=== PATIENT | male | born 1955 | race Caucasian/White ===

== ENCOUNTER 2023-07-07 09:23 | Outpatient (AMB) | payer OTHER, SELFPAY ==
--- NOTE | 2023-07-07 09:27 | MHC.OFFVIS ---
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 Patient states that couple months ago he had some heartburn type sensation and at that time he went to [place] ER. Then diagnosed with atrial flutter. He is currently on beta-blockers and anticoagulation. Has not had any symptoms like palpitations. Otherwise, no exertional angina or shortness of breath or in fact any other complaints. No previous history of coronary disease or myocardial infarction or cardiomyopathy. History of drinking regularly till about a month ago but then stopped completely. [facility] Medical History Steatosis of liver Major depressive disorder DJD (degenerative joint disease) Cataract Impaired fasting glucose ADHD Hypertension Family History (Updated 07/07/23 @ 09:48 by John Feng MD) Father No problems noted. Mother No problems noted. Social History (Updated 07/07/23 @ 09:49 by John Feng MD) Alcohol intake: current Comment: daily Patient Tobacco Use Status: Former Tobacco user Review of Systems Const Denies weakness ENT Denies dizziness Card Denies chest pain, Denies chest pain with activity, Denies syncope, Denies rapid heart rate, Denies pedal edema, Denies edema, Denies leg edema, Denies lightheadedness, Denies palpitations, Denies dyspnea, Denies dyspnea on exertion and Denies orthopnea Resp Denies cough, Denies dyspnea and Denies dyspnea on exertion GI Denies hematochezia and Denies change in stool character Musc Denies abnormal gait, Denies muscle cramps, Denies muscle weakness, Denies numbness, Denies radiating pain into limb and Denies tingling Neuro Denies abnormal gait, Denies dizziness, Denies syncope, Denies numbness, Denies tingling and Denies weakness Endo Denies palpitations Physical Exam Vital Signs: Last Vital Signs Pulse 53 07/07/23 09:29 BP 110/80 07/07/23 09:29 Pulse Ox 99 07/07/23 09:29 Oxygen Delivery Method Room Air 07/07/23 09:29 BMI result Body Mass Index 29.4 Const General: comfortable and no acute distress Orientation/consciousness: patient oriented x3 HEENT Other: Unremarkable Head: Yes normal to inspection Neck Neck: Yes normal visual inspection Chest Chest palpation & inspection: normal inspection of the chest Resp Auscultation: clear to auscultation bilaterally Cardio Palpation: normal PMI Heart sounds: S1 normal heart sound present, S2 normal heart sound present, no gallops, no murmurs and no rubs GI Palpation (GI): Soft to palpation Back/Spine/Pelvis Other: unremarkable Skin General skin exam: no rashes or lesions noted Neuro General: patient oriented x3 Extrem General: Yes normal to inspection Psych Mental Status: mental status grossly normal Office Procedures EKG Details: EKG with atrial flutter at 53/Min. 26269-[id number], Complete Assessment & Plan Assessment & Plan (1) Atrial flutter by electrocardiogram: Code(s): I48.92 - Unspecified atrial flutter Category: Medical Plan Recently diagnosed atrial flutter of uncertain duration. Clinically, no overt symptoms. Etiology could be daily alcohol use. Will performed comprehensive workup with echocardiogram, stress test as well as Holter. Rate well controlled beta-blockers and may continue. Already on anticoagulation. We will get ER records from [place]. Plan discussed and he agrees. Orders: Orders CA echo transthoracic complete Today I48.92 - Unspecified atrial flutter CA lexiscan stress w keith Today I20.9 - Angina pectoris, unspecified, I48.92 - Unspecified atrial flutter NM cardiolite stress test Today I48.92 - Unspecified atrial flutter, R07.2 - Precordial pain ECG 3 day holter monitor Today I48.92 - Unspecified atrial flutter, R00.2 - Palpitations Coding Level of Care Code New Pt Level 4 (20558) Diagnoses Atrial flutter by electrocardiogram I48.92 CPT Codes EKG - CPT: 92004-[id number], Complete ([id number])
[2023-07-07 09:29] VITALS: BP 110/80; PULSE 53; O2SAT 99; BMI 29.4
== END 2023-07-07 10:06 | disposition home or self-care (01) ==
PROVIDERS: PCP Internal Medicine; Visit Provider Internal Medicine
DX: I48.92 Unspecified atrial flutter (principal)
CPT/HCPCS: 93010; 99204

== ENCOUNTER → 2023-07-07 09:23 | Outpatient (BNVA) | payer OTHER, SELFPAY | PROVIDERS: PCP Internal Medicine; Visit Provider Internal Medicine | DX: I48.92 Unspecified atrial flutter (principal) | CPT/HCPCS: 93005; 99202 ==

== ENCOUNTER → 2023-07-29 12:54 | Outpatient (REF) | payer OTHER, SELFPAY ==
--- NOTE | 2023-07-29 12:58 | HM_ITS ---
Conclusion: 1. Patient was monitored for total period of 2 days and 17 hours 2. Baseline was atrial fibrillation with average heart rate of 67 beats per minute with good rate control 3. No significant pauses noted 4. No patient reported events MTDD
--- NOTE | 2023-07-29 12:58 | CA_ITS ---
Transthoracic Echocardiogram Patient (Last, First, Middle): Nathan Murphy, Gender: Male Date of : 1955 Age: 67 Procedure Date: 07/29/2023 Procedure Type: Transthoracic Echocardiogram Location: OP Height: 187.96 cm Weight: 97.52 kg BSA: 2.24 m2 Heart Rate: bpm BP: 106 / 71 mmHg Elementary Assistant Teacher: JOVANNY Referring MD: John Feng MD Symptoms: I48.92 - Unspecified atrial flutter Study Quality: Fair ECG Rhythm: Atrial flutter Conclusions: - The left ventricular systolic function is normal. The calculated ejection fraction is 64% by biplane method. - Moderate biatrial enlargement. - No obvious valvular pathology seen on this study. Findings Left Ventricle Normal left ventricular cavity size. There is mildly increased left ventricular wall thickness. The left ventricular systolic function is normal. The calculated ejection fraction is 64% by biplane method. There is no evidence of regional wall motion abnormalities. Diastolic function is indeterminate on the basis of available data. Right Ventricle Mildly increased right ventricular cavity size. There is low normal right ventricular systolic function. Atria Moderate biatrial enlargement. Aortic Valve There is a normal trileaflet aortic valve. There is mild calcification of the aortic valve. There is no aortic valve stenosis. There is no aortic valve regurgitation. Mitral Valve The mitral valve appears normal. There is no mitral valve regurgitation. There is no mitral valve stenosis. Pulmonic Valve The pulmonic valve is likely normal. Tricuspid Valve There is trace tricuspid valve regurgitation. There is no evidence of pulmonary hypertension. Great Vessels The asc aorta and aortic arch are normal in size. Small plaque is seen in the sino tubular ridge. Venous The inferior vena cava is mildly dilated and collapses greater than 50% with inspiration. Pericardium/Pleural There is no evidence of pericardial effusion. Prior Study Comparison No prior study available for comparison. Recommendations, Care & Conclusions No obvious valvular pathology seen on this study. Measurements 2D Linear Measurements IVSd: 1.24 0.6-0.9/0.6-1.0 cm LVIDd: 4.70 3.9-5.3/4.2-5.9 cm LVIDd Index: 2.10 2.4-3.2/2.2-3.1 cm/m2 LVIDs: 2.61 2.0-3.6 cm LVPWd: 1.14 0.7-1.1 cm LA Diam: 4.20 2.7-3.8/3.0-4.0 cm LAIDs Index: 1.88 1.5-2.3 cm/m2 LV Mass: 261.11 67-162/88-224 g LV Mass Index: 116.57 43-95/49-115 g/m2 LVOT Diam: 2.40 3.0+(-)1.3 cm 2D Systolic Function EF 4C: 66.30 >55% EF 2C: 60.50 >55% EF BiP: 64.30 >55% Mitral Valve MV Pk E: 0.79 MV Decel Time: 166.00 E'Lateral: 12.10 E'Medial: 10.10 E/E' Med: 7.80 E/E' Lat: 6.50 PHT: 49.00 MVA PHT: 4.49 Decel [place]: 4.79 Aortic Valve AoV Pk Rod: 1.30 AoV Mn Rod: 0.87 AoV VTI: 0.32 AoV Pk Grad: 7.00 Aov Mn Grad: 4.00 [place] Cont.VTI: 3.53 LVOT LVOT Pk Rod: 1.06 LVOT Mn Rod: 0.70 LVOT VTI: 0.25 LVOT Pk Grad: 4.00 LVOT Mn Grad: 2.00 LVOT Diam: 2.40 LVOT Area: 4.52 Diastolic Function MV Pk E: 0.79 E'Medial: 10.10 E/E' Med: 7.80 E' Laterial: 12.10 E/E' Lat: 6.50 Right Ventricle TAPSE (mm): 17.80 TVS' Rod: 11.50 Tricuspid Valve TR Pk Rod: 2.05 TR Pk Grad: 17.00 RA Press: 8.00 RVSP: 25.00 Great Vessels Aorta Sinus of Valsalva: 4.18 2.0-3.[address] [place]: 2.96 1.7-3.4 cm Ao Asc: 3.80 2.1-3.4 cm Ao Arch: 3.60 Updated in Other Vendor System with Status of Final John Feng MD electronically signed on 07/31/2023 10:36:19 AM with status of Final
== END ==
LOC: HO.CARD 12:54
PROVIDERS: Visit Provider Internal Medicine
DX: R00.2 Palpitations (principal); I48.92 Unspecified atrial flutter
CPT/HCPCS: 93242; 93306

== ENCOUNTER → 2023-07-29 12:58 | Outpatient (BNV) | payer OTHER, SELFPAY | PROVIDERS: Visit Provider Internal Medicine | DX: I48.91 Unspecified atrial fibrillation (principal) | CPT/HCPCS: 93244; 93306 ==

== ENCOUNTER → 2023-08-24 07:53 | Outpatient (REF) | payer OTHER, SELFPAY ==
--- NOTE | ~2023-08-24 | NM_ITS ---
Lexiscan Myocardial perfusion study Indication: Atrial flutter, assess for coronary disease and ischemia Technique: The patient was brought in for a Lexiscan perfusion study on 08/24/2023 and was injected 0.4 mg of Lexiscan intravenously. Within a minute of this injection 35 mCi of sestamibi was given intravenously. Images were obtained using the SPECT gamma camera interlaced with the gating device. Images were obtained in supine position. Resting perfusion study was performed on 08/25/2023. Patient was administered 35 mCi of sestamibi intravenously at rest. Images were then obtained in supine position. Images were processed with the software and compared side to side in short axis, horizontal long axis and vertical long axis views. Total DLP 97mGy-cm. Findings: Raw acquisition reviewed. The stress perfusion study showed diminished tracer uptake along the inferior wall, more so towards the base. There is improvement with CT attenuation correction is a distal of diaphragmatic attenuation artifact. The gated study shows normal LV systolic function with calculated LVEF of 62%. LV cavity is normal in size. The gated study shows inferior hypokinesis. Resting study shows diminished tracer uptake along the inferior wall. There is improved uptake with CT attenuation correction suggestive of diaphragmatic attenuation artifact. Gating at rest reveals inferior hypokinesis with an ejection fraction of 53%. The findings are consistent with fixed inferior perfusion defect possibly from diaphragmatic attenuation artifact. No clear reversible defects. NM/NM cardiolite stress test Impression: 1. Myocardial perfusion imaging study shows fixed inferior perfusion defect suspected to be from diaphragmatic attenuation artifact. No clear evidence of any ischemia. 2. Gated LVEF is 62% during stress and 53% during rest. 3. Transient ischemic dilatation not present. EKG component of the test reported separately.
--- NOTE | 2023-08-24 07:55 | CA_ITS ---
Acquisition Time: 2023-08-24 08:00:31 Total Exercise Time: 00:02:00 Test Indications: Chest Pain AFLUTTER Medications: AMLODIPINE ELIQUIS BUPROPION LISINOPRIL METOPROLOL Protocol: LEXISCAN Max HR: 080 BPM 52% of Pred: 153 BPM Max BP: 128/076 mmHG Max Work Load: 1.0 METS Pharmacological stress test with Lexiscan injection while sitting and kicking his legs slowly due to bradycardia, without anginal symptoms, without arrhythmias, with normotensive response to injection, with nondoagnoisitc EKGs. Aminophylline 75mg IVP given to reverse Lexiscan. Nuclear images pending. Test reviewed with Dr. Plunkett Referred By: John Feng Overread By: Gisselle Slaughter
== END ==
LOC: HO.CARD 07:53
PROVIDERS: Visit Provider Internal Medicine
DX: R07.2 Precordial pain (principal); I20.9 Angina pectoris, unspecified; I48.92 Unspecified atrial flutter
CPT/HCPCS: 78452; 93017; A9500; J0280; J2785

== ENCOUNTER → 2023-08-24 07:55 | Outpatient (BNV) | payer OTHER, SELFPAY | PROVIDERS: Visit Provider Nurse Practitioner | DX: I48.92 Unspecified atrial flutter (principal) | CPT/HCPCS: 78452; 93016; 93018 ==

== ENCOUNTER 2023-09-07 13:28 | Outpatient (AMB) | payer OTHER, SELFPAY ==
--- NOTE | 2023-09-07 13:39 | A.OFFVIS_ITS ---
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 Recently seen in consultation regarding atrial flutter. Patient states that couple months ago he had some heartburn type sen sation and at that time he went to [facility] [place] [facility]. Then diagnosed with atrial flutter. He is currently on beta-blockers and anticoagulation. Has not had any symptoms like palpitations. Otherwise, no exertional angina or shortness of breath or in fact any other complaints. No previous history of coronary disease or myocardial infarction or cardiomyopathy. History of drinking regularly till a few months ago but stopped now. [facility] Medical History Steatosis of liver Major depressive disorder DJD (degenerative joint disease) Cataract Impaired fasting glucose ADHD Hypertension Family History Father No problems noted. Mother No problems noted. Social History Alcohol intake: current Comment: daily Patient Tobacco Use Status: Former Tobacco user Review of Systems Const Denies chills, Denies fatigue, Denies fever(s), Denies weight gain and Denies weight loss Card Denies chest pain, Denies leg edema, Denies lightheadedness, Denies palpitations, Denies dyspnea on exertion and Denies orthopnea Resp Denies cough and Denies dyspnea on exertion GI Denies hematochezia and Denies change in stool character Musc Denies muscle weakness and Denies radiating pain into limb Endo Denies fatigue and Denies palpitations Physical Exam Vital Signs: Last Vital Signs Pulse 51 09/07/23 13:40 BP 118/72 09/07/23 13:40 BMI result Body Mass Index 27.7 Const General: comfortable and no acute distress Orientation/consciousness: patient oriented x3 HEENT Other: Unremarkable Head: Yes normal to inspection Neck Neck: Yes normal visual inspection Chest Chest palpation & inspection: normal inspection of the chest Resp Auscultation: clear to auscultation bilaterally Cardio Palpation: normal PMI Heart sounds: S1 normal heart sound present, S2 normal heart sound present, no gallops, no murmurs and no rubs GI Palpation (GI): Soft to palpation Back/Spine/Pelvis Other: unremarkable Skin General skin exam: no rashes or lesions noted Neuro General: patient oriented x3 Extrem General: Yes normal to inspection Psych Mental Status: mental status grossly normal Office Procedures EKG Details: EKG with atrial flutter at 66/Min. [id number], Complete Assessment & Plan Assessment & Plan (1) Atrial flutter by electrocardiogram: Code(s): I48.92 - Unspecified atrial flutter Category: Medical Plan Recently diagnosed atrial flutter of uncertain duration. Clinically, no overt symptoms. Etiology could be daily alcohol use. Echocardiogram with LVEF of 64%. No wall motion abnormalities. Moderate biatrial enlargement. Otherwise unremarkable. Myocardial perfusion imaging study shows fixed inferior defect thought to be from diaphragmatic attenuation artifact. Holter with underlying atrial flutter with an average rate of 67/Min. Discussed about atrial flutter. Discussed about cardioversion and he is agreeable. We can schedule this in the near future. In the interim, continue beta-blockers/Eliquis. Post cardioversion, possibly flecainide or Multaq. Then refer for flutter ablation. Coding Level of Care Code Est Pt Level 4 (50969) Diagnoses Atrial flutter by electrocardiogram I48.92 CPT Codes EKG - CPT: 37277-[id number], Complete ([id number])
[2023-09-07 13:40] VITALS: BP 118/72; PULSE 51; BMI 27.7
== END 2023-09-07 14:18 | disposition home or self-care (01) ==
PROVIDERS: PCP Internal Medicine; Referring Provider Internal Medicine; Visit Provider Internal Medicine
DX: I48.92 Unspecified atrial flutter (principal)
CPT/HCPCS: 93010; 99214

== ENCOUNTER → 2023-09-07 13:28 | Outpatient (BNVA) | payer OTHER, SELFPAY | PROVIDERS: PCP Internal Medicine; Visit Provider Internal Medicine | DX: I48.92 Unspecified atrial flutter (principal); Z79.01 Long term (current) use of anticoagulants | CPT/HCPCS: 93005; 99212 ==

== ENCOUNTER 2023-10-06 14:45 | Emergency (ER) | payer OTHER, SELFPAY ==
[2023-10-06] VITALS (8 sets, daily range): BP systolic 135–159; BP diastolic 83–100; PULSE 21–63; RESP 16–25; TEMP 36.6–36.9; O2SAT 93–98; BMI 27.6
--- NOTE | ~2023-10-06 | XR_ITS ---
EXAMINATION: XR CHEST CLINICAL INFORMATION: Chest pain COMPARISON: None available. TECHNIQUE: Frontal view of the chest was obtained. FINDINGS: Lungs grossly clear given portable technique. Heart size normal normal with normal caliber pulmonary vessels. No congestive change. XR/XR chest 1V IMPRESSION: No active disease given the limitations of portable AP technique.
--- NOTE | 2023-10-06 14:47 | ECG_ITS ---
Test Reason : chest pain Blood Pressure : / mmHG Vent. Rate : 062 BPM Atrial Rate : 248 BPM P-R Int : 000 ms QRS Dur : 098 ms QT Int : 428 ms P-R-T Axes : 078 -11 035 degrees QTc Int : 434 ms Atrial flutter with variable A-V block Inferior infarct , age undetermined Abnormal ECG No previous ECGs available Referred By: Jalyn Murphy Electronically Signed By:JEFE SAMUELS MD
--- NOTE | 2023-10-06 14:53 | ED.ARRPALP ---
HPI - Arrhythmia/Palpitations General Chief Complaint: Chest Pain Stated Complaint: CP Time Seen by Provider: 10/06/23 15:45 Source: patient Mode of arrival: ambulatory Limitations: no limitations History of Present Illness ED Provider: Dr. Grzegorz Ferreira HPI narrative: 68-year-old male past medical history of atrial fibrillation scheduled to have an ablation in December here who presents emergency department complaining chest pain. 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 Related Data Home Medications ?Medication ?Instructions ?Recorded ?Confirmed amlodipine 5 mg tablet 5 mg PO DAILY 07/07/23 09/07/23 apixaban 5 mg tablet (Eliquis) 5 mg PO BID 07/07/23 09/07/23 bupropion HCl 200 mg tablet,12 hr PO 07/07/23 09/07/23 sustained-release (Wellbutrin SR) lisinopril 10 mg tablet 10 mg PO DAILY 07/07/23 09/07/23 metoprolol succinate 50 mg 50 mg PO DAILY 07/07/23 09/07/23 tablet,extended release 24 hr Allergies Allergy/AdvReac Type Severity Reaction Status Date / Time No Known Allergies Allergy Verified 10/06/23 14:55 Review of Systems Review of Systems: Review of systems: General: Patient denies any fever chills recent illness or falls Musculoskeletal: Denies back pain or body aches or other injuries HEENT: denies headache, runny nose, ear pain Respiratory: denies shortness of breath, cough Cardiovascular: no chest pain or palpitations : denies dysuria, frequency Abdomen: no nausea vomiting denies abdominal pain Extremities: no swelling, no pain Skin: no diaphoresis Yes all other systems are reviewed and are negative [facility] Past Medical History Medical History Steatosis of liver Major depressive disorder DJD (degenerative joint disease) Cataract Impaired fasting glucose ADHD Hypertension Family History Family History Father No problems noted. Mother No problems noted. Social History Social History Alcohol intake: current Comment: daily Patient Tobacco Use Status: Former Tobacco user Smoked in Last 30 Days: No Use of substances other than those prescribed or required for medical reasons: Yes Substance Use Type: Marijuana Substance Use Frequency: Daily Advance Directives: Yes Advance Directives Information Provided: No Advance Directives on File: No Do you have a plan to hurt others: No Plan Physical Exam Vital Signs: Vital Signs: Last Vital Signs Temp 98.5 F 10/06/23 17:34 Pulse 21 L 10/06/23 17:34 Resp 25 H 10/06/23 17:34 BP 157/96 H 10/06/23 17:34 Pulse Ox 94 10/06/23 17:34 O2 Del Method Room Air 10/06/23 17:00 BMI result Body Mass Index 27.6 General: Well-appearing well-nourished in no signs of distress HEENT: Normocephalic atraumatic Neck: No signs of JVD, no masses no tenderness or lymphadenopathy Cardiovascular: Regular rate and rhythm Respiratory: Clear to auscultation bilaterally Abdomen: Soft nontender no masses Extremities: Normal pedal pulses no signs of edema Skin: Dry warm no rashes Back: No tenderness full ROM Course Course Course Narrative: This is a Rapid Medical Exam performed in triage by Jalyn Murphy PA-C. Full HPI, ROS and PE to be performed by primary ED provider. 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 +SOB from Metoprolol per patient. denies CP at present. PE: ambulating w/steady gait, nontoxic appearing Plan: EKG, Labs, CXR Reevaluation(s) Reevaluation #1: 1931 repeat troponin is also negative the patient has no more chest pain I feel comfortable discharging police home with close PCP follow-up. Medical Decision Making Medical Decision Making [facility] Narrative: Patient is pain-free at this time I will check labs x-ray and reassess Differential Diagnosis Differential Diagnoses: The differential diagnosis associated with the presentation includes Chest pain ACS atrial fibrillation atrial flutter dehydration electrolyte abnormality pneumonia less likely esophageal rupture or aortic dissection Admission/Observation Consideration of admission/observation: Escalation of care including admission/observation considered Lab Data [facility] Lab Attestation statement: I reviewed the patient's lab results. 10/06/23 15:53 10/06/23 15:53 Labs: Lab Results 10/06/23 10/06/23 Range/Units 15:53 18:27 WBC 6.0 (4.8-10.8) X10*3/uL RBC 4.90 (4.60-5.80) X10*6/uL Hgb 14.1 (14.0-18.0) g/dl Hct 40.9 L (42.0-52.0) % MCV 83.5 (80.0-98.0) fL MCH 28.8 (27.0-33.0) pg MCHC 34.5 (31.0-36.0) g/dl RDW 12.9 (11.0-16.0) % Plt Count 276 (160-400) X10*3/uL MPV 9.5 (9.4-12.4) fL Immature Gran % (Auto) 0.5 H (0.0-0.4) % Neut % (Auto) 59.9 (45-73) % Lymph % (Auto) 27.3 (20-40) % [place] % (Auto) 10.6 (2-11) % Eos % (Auto) 1.0 (0-4) % Baso % (Auto) 0.7 (0-2) % Lymph # (Auto) 1.6 (1.2-4.9) X10*3/uL [place] # (Auto) 0.6 (0.1-1.2) X10*3/uL Eos # (Auto) 0.1 (0.0-0.4) X10*3/uL Baso # (Auto) 0.0 (0.0-0.2) X10*3/uL Abs Immat Gran (auto) 0.03 (0.00-0.03) X10*3/uL Absolute Neuts (auto) 3.6 (2.0-8.3) x10*3/uL Absolute Nucleated RBC 0.000 (0.0-0.012) X10*3/uL Nucleated RBC % (auto) 0.0 (0.0-0.2) /100WBC PT 14.5 H (11.1-13.3) SEC INR 1.2 H (0.9-1.1) Sodium 139 (135-145) mmol/L Potassium 3.9 (3.3-5.1) mmol/L Chloride 105 (96-108) mmol/L Carbon Dioxide 27 (22-29) mmol/L Anion Gap 11 L (12-20) BUN 14 (9-16) mg/dL Creatinine 0.80 (0.5-1.4) mg/dL Estim Creat Clear Calc 102.7 Estimated GFR > 60 Random Glucose 99 (60-115) mg/dL Calcium 9.4 (8.4-10.2) mg/dL Magnesium 2.0 (1.6-2.6) mg/dL Total Bilirubin 0.4 (0.0-1.0) mg/dL Direct Bilirubin 0.1 (0.0-0.5) mg/dL AST 16 (5-37) U/L ALT 18 (0-40) U/L Alkaline Phosphatase 73 (39-117) U/L Troponin I High Sens < 2.7 < 2.7 (<3.5-35.0) ng/L B-Natriuretic Peptide 127 H (<100) pg/mL Total Protein 7.4 (6.5-8.0) g/dL Albumin 4.4 (3.5-5.0) g/dL Independent Interpretation I performed an independent interpretation of an: EKG, Rhythm Strip and Plain X-Ray Interpretation: Rate 62 atrial flutter with no signs of ischemia normal intervals no change from previous interpreted by me External Record Review External record reviewed: Inpatient record, Office record and Outpatient record Discharge Plan Discharge Clinical Impression: Chest pain Patient Disposition: Home, Self-Care Instructions: Chest Pain (DC) Additional Instructions: You were seen today in the emergency department for chest pain. You had x-ray and labs done which were all unremarkable. Please call follow up with your doctor if you have any other concerns worsening pain please do not hesitate to come back to the emergency department. Prescriptions: No Action metoprolol succinate 50 mg tablet extended release 24 hr 50 mg PO DAILY Eliquis 5 mg tablet 5 mg PO BID amlodipine 5 mg tablet 5 mg PO DAILY lisinopril 10 mg tablet 10 mg PO DAILY bupropion HCl [Wellbutrin SR] 200 mg tablet sustained-release 12 hr PO Print Language: Wolof
--- NOTE | 2023-10-06 15:40 | PC.NURSE ---
Pt. is on manager monitoring at this time.
--- NOTE | 2023-10-06 15:54 | PC.NURSE ---
Labs collected and sent as ordered.
--- NOTE | 2023-10-06 15:54 | PC.NURSE ---
20G to LAC. Tolerated well.
[2023-10-06 16:06] LABS: MANUAL DIFF FLAG NO
--- NOTE | 2023-10-06 16:13 | MHC.EDTECH ---
This tech went to introduce herself, checked vital signs, call meadows within reach.
[2023-10-06 16:14] LABS: Basophils Percent Auto 0.7 % (0-2); Eosinophils Absolute Auto 0.1 X10*3/uL (0.0-0.4); Hematocrit 40.9 % (42.0-52.0); Hemoglobin 14.1 g/dl (14.0-18.0); Imm Gran Abs Auto 0.03 X10*3/uL (0.00-0.03); Imm Gran Pct Auto 0.5 % (0.0-0.4); Lymphocytes Absolute Auto 1.6 X10*3/uL (1.2-4.9); Lymphocytes Percent Auto 27.3 % (20-40); Mean Corpuscular HGB Conc 34.5 g/dl (31.0-36.0); Mean Corpuscular Hemoglobin 28.8 pg (27.0-33.0); Mean Corpuscular Volume 83.5 fL (80.0-98.0); Mean Platelet Volume 9.5 fL (9.4-12.4); Monocytes Absolute Auto 0.6 X10*3/uL (0.1-1.2); Monocytes Percent Auto 10.6 % (2-11); Neutrophils Absolute Auto 3.6 x10*3/uL (2.0-8.3); Neutrophils Percent Auto 59.9 % (45-73); Platelet Count 276 X10*3/uL (160-400); Red Cell Distribution Width 12.9 % (11.0-16.0)
[2023-10-06 16:17] LABS: INTERNATIONAL NORM RATIO 1.2 (0.9-1.1); Prothrombin Time 14.5 SEC (11.1-13.3)
[2023-10-06 16:24] LABS: Alanine Aminotransferase 18 U/L (0-40); Albumin Level 4.4 g/dL (3.5-5.0); Alkaline Phosphatase 73 U/L (39-117); Anion Gap 11 (12-20); Aspartate Amino Transferase 16 U/L (5-37); Bilirubin Direct 0.1 mg/dL (0.0-0.5); Bilirubin Total 0.4 mg/dL (0.0-1.0); Blood Urea Nitrogen 14 mg/dL (9-16); Calcium 9.4 mg/dL (8.4-10.2); Carbon Dioxide 27 mmol/L (22-29); Chloride 105 mmol/L (96-108); Creatinine Clr Calc Pharmacy 102.7; Estimated Glomerular Filt Rate > 60; Glucose Random 99 mg/dL (60-115); Potassium 3.9 mmol/L (3.3-5.1); Sodium 139 mmol/L (135-145); Total Protein 7.4 g/dL (6.5-8.0)
[2023-10-06 16:29] LABS: B Type Natriuretic Peptide 127 pg/mL (<100)
[2023-10-06 16:36] LABS: Troponin-I High Sensitivity < 2.7 ng/L (<3.5-35.0)
[2023-10-06 18:55] LABS: Troponin-I High Sensitivity < 2.7 ng/L (<3.5-35.0)
== END 2023-10-06 20:04 | disposition home or self-care (01) ==
PROVIDERS: Physician Assistant; Emergency Provider Student in an Organized Health Care Education/Training Program; PCP Internal Medicine
DX: R07.89 Other chest pain (principal); I48.91 Unspecified atrial fibrillation; R06.02 Shortness of breath; Z79.899 Other long term (current) drug therapy
CPT/HCPCS: 36415; 71045; 80048; 80076; 83735; 83880; 84484; 85025; 85610; 93005; 99283; 99285

== ENCOUNTER → 2023-10-06 14:47 | Outpatient (BNV) | payer OTHER, SELFPAY | PROVIDERS: Emergency Provider Student in an Organized Health Care Education/Training Program; PCP Internal Medicine; Visit Provider Internal Medicine Cardiovascular Disease | DX: I48.92 Unspecified atrial flutter (principal); I44.30 Unspecified atrioventricular block | CPT/HCPCS: 93010 ==

== ENCOUNTER 2024-03-22 13:21 | Outpatient (AMB) | payer OTHER, SELFPAY ==
[2024-03-22 13:28] VITALS: BP 138/68; PULSE 61; BMI 28.6
--- NOTE | 2024-03-22 13:28 | MHC.OFFVIS ---
Vital Signs 03/22/24 13:28 Height 6 ft 2 in Weight 222 lb 10.67 oz BMI 28.6 BP 138/68 Blood Pressure Location Lt brachial Position Sitting Pulse 61 Pulse Source Monitor Intake Visit Reasons: 4 week follow up post ablation Allergies No Known Allergies Allergy (Verified 10/06/23 14:55) Medication List - Last Reconciled 03/22/24 by John Feng MD amlodipine 5 mg PO DAILY apixaban (Eliquis) 5 mg PO BID bupropion HCl SR (Wellbutrin SR) PO lisinopril 20 mg PO DAILY HPI Comments Details: Nathan returns for follow-up. Recently seen in consultation regarding atrial flutter. Few months back, he had some heartburn type sensation and at that time he went to [facility]. Then diagnosed with atrial flutter. He was put on beta-blockers and anticoagulation. Subsequently, seen EP and underwent flutter ablation last month. Overall, he states he feels good. No cardiac symptoms. No angina. History of alcohol use regularly till a few months ago. [facility] Medical History Steatosis of liver Major depressive disorder DJD (degenerative joint disease) Cataract Impaired fasting glucose ADHD Hypertension Family History Father No problems noted. Mother No problems noted. Social History Alcohol intake: current Comment: daily Patient Tobacco Use Status: Former Tobacco user Substance Use Type: Marijuana Review of Systems Const Denies weakness ENT Denies dizziness Card Denies chest pain, Denies chest pain with activity, Denies syncope, Denies rapid heart rate, Denies pedal edema, Denies edema, Denies leg edema, Denies lightheadedness, Denies palpitations, Denies dyspnea, Denies dyspnea on exertion and Denies orthopnea Resp Denies cough, Denies dyspnea and Denies dyspnea on exertion GI Denies hematochezia and Denies change in stool character Musc Denies abnormal gait, Denies muscle cramps, Denies muscle weakness, Denies numbness, Denies radiating pain into limb and Denies tingling Neuro Denies abnormal gait, Denies dizziness, Denies syncope, Denies numbness, Denies tingling and Denies weakness Endo Denies palpitations Physical Exam Vital Signs: Last Vital Signs Pulse 61 03/22/24 13:28 BP 138/68 03/22/24 13:28 BMI result Body Mass Index 28.6 Const General: comfortable and no acute distress Orientation/consciousness: patient oriented x3 HEENT Other: Unremarkable Head: Yes normal to inspection Neck Neck: Yes normal visual inspection Chest Chest palpation & inspection: normal inspection of the chest Resp Auscultation: clear to auscultation bilaterally Cardio Palpation: normal PMI Heart sounds: S1 normal heart sound present, S2 normal heart sound present, no gallops, no murmurs and no rubs GI Palpation (GI): Soft to palpation Back/Spine/Pelvis Other: unremarkable Skin General skin exam: no rashes or lesions noted Neuro General: patient oriented x3 Extrem General: Yes normal to inspection Psych Mental Status: mental status grossly normal Office Procedures EKG Details: EKG with underlying sinus rhythm at 61/Min; NE prolongation to 234 milliseconds; [place]. [address]-[id number], Complete Assessment & Plan Assessment & Plan (1) Atrial flutter by electrocardiogram: Code(s): I48.92 - Unspecified atrial flutter Category: Medical Plan Essentially, atrial flutter, status post ablation and currently maintaining sinus rhythm. It seems that beta-blockers have been stopped. We will keep him on anticoagulation for the time being. Recheck Holter in about 3 months time. If no recurrent rhythm issues, then possibly stop Eliquis?; we will check with the EP. Testing- Echocardiogram with LVEF of 64%. No wall motion abnormalities. Moderate biatrial enlargement. Otherwise unremarkable. Myocardial perfusion imaging study shows fixed inferior defect thought to be from diaphragmatic attenuation artifact. Orders: Orders ECG 3 day holter monitor 3 Months I48.92 - Unspecified atrial flutter Coding Level of Care Code Est Pt Level 3 (17872) Diagnoses Atrial flutter by electrocardiogram I48.92 CPT Codes EKG - CPT: 63894-[id number], Complete ([id number])
== END 2024-03-22 13:57 | disposition home or self-care (01) ==
PROVIDERS: PCP Nurse Practitioner Gerontology; Visit Provider Internal Medicine
DX: I48.92 Unspecified atrial flutter (principal)
CPT/HCPCS: 93010; 99213

== ENCOUNTER → 2024-03-22 13:21 | Outpatient (BNVA) | payer OTHER, SELFPAY | PROVIDERS: PCP Internal Medicine; Visit Provider Internal Medicine | DX: I48.92 Unspecified atrial flutter (principal) | CPT/HCPCS: 93005; 99212 ==

== ENCOUNTER → 2024-06-06 14:50 | Outpatient (REF) | payer OTHER, SELFPAY ==
--- OUTSIDE RECORDS SUMMARY | 2024-06-06 17:56 | XMS_ITS ---
Author Name [facility] [place] [facility] [place] [facility] [place] [facility] [place] Address [address] [place] [id number] Care Team Providers Care Baker Bench Name Role Phone ARIANNE CHERY Primary Care Provider Unavailab le Insurance Providers: All historical and current Section Date Range: From patient's date of to the date document was created. This section includes the names of all active insurance providers for the patient. Insurance Provider Type of Coverage Plan Name Start of Policy Coverage End of Policy Coverage Group Number Member ID Insurance Provider's Telephone Number Policy Rizvi's Name Patient's Relationship to Policy Rizvi [facility] [employer] Aug 29, 2017 [id number] [phone] Kathy ESTRADA [facility] CE ORGANIZ COMMO [facility] Mar 01, 2014 [id number] [phone] Kathy ESTRADA SPOUSE MEDICARE (WNR) MEDICARE (M) PART A Sep 29, 2020 PART A [id number] [facility] [phone] Guanakito ESTRADA PATIENT MEDICARE (WNR) MEDICARE (M) PART A Sep 29, 2020 PART A [id number] [facility] [phone] Guanakito ESTRADA PATIENT Selected Encounter This section includes the information on record at [place] for the Encounter. Date/Time Encounter Type Encounter Description Reason Provider Source Sep 17, 2023 03:30 PM OFFICE O/P EST MOD 30 MIN [facility] - IND ICD-10-CM F90.0 Attn-defct hyperactivity disorder, predom inattentive type [place] BROOKE IN [facility] Encounter Template Text not used by [place] Assessments - Encounter Diagnoses This section includes the primary and secondary diagnoses documented for the Encounter. Date/Time Primary/Secondary Diagnosis Diagnosis Name Provider Source Sep 17, 2023 04:08 PM PRIMARY Attn-defct hyperactivity disorder, predom inattentive type [facility] [place] [facility] Sep 17, 2023 04:08 PM SECONDARY Alcohol dependence with withdrawal, uncomplicated GERMAIN BROOKE IN [facility] [place] [facility] Sep 17, 2023 04:08 PM SECONDARY Major depressive disorder, single episode, unspecified [facility] Plan of Treatment: Future Appointments (+ 6 months) and Future Tests (+/- 45 days) The Plan of Treatment section includes future care activities for the patient [facility] [place] [facility] This section includes future appointments and future orders which are active, pending or scheduled. Future Appointments This section includes appointments that were scheduled to occur 6 months from the date of the Encounter, up to a maximum of 20 appointments. The data comes from all [place] treatment facilities. Appointment Date/Time Appointment Type Appointme nt Facility Name Oct 05, 2023 01:00 PM AMBULATORY - MEDICINE [place] [facility] [facility] Oct 14, 2023 02:00 PM AMBULATORY - NONE [place] [facility] [facility] Nov 12, 2023 03:30 PM AMBULATORY - PSYCHIATRY [place] [facility] [facility] Nov 25, 2023 07:30 AM AMBULATORY - REHAB MEDICIN [place] [facility] [place] [facility] Nov 25, 2023 08:30 AM AMBULATORY - PSYCHIATRY [place] [facility] [place] [facility] Nov 25, 2023 11:00 AM AMBULATORY - MEDICINE [facility] Dec 03, 2023 07:30 AM AMBULATORY - REHAB MEDICIN E [place] [facility] [facility] Dec 09, 2023 08:15 AM AMBULATORY - REHAB MEDICIN E [facility] [place] [facility] Dec 15, 2023 01:00 PM AMBULATORY - REHAB MEDICIN E [facility] [place] [facility] Dec 24, 2023 03:00 PM AMBULATORY - PSYCHIATRY [facility] [place] [facility] Dec 31, 2023 02:30 PM AMBULATORY - REHAB MEDICIN E [facility] [place] [facility] Jan 17, 2024 08:30 AM AMBULATORY - MEDICINE [place] [facility] [facility] Jan 17, 2024 09:45 AM AMBULATORY - MEDICINE [place] [facility] [place] [facility] Feb 17, 2024 03:30 PM [facility] [place] [facility] Active, Pending, and Scheduled Orders This section includes a listing of several types of active, pending, and scheduled orders, including clinic medications orders, diagnostic test orders, procedure orders and consult orders; where the start date of the order is 45 days before the date of the Encounter or 45 days after the date of theEncounter. The data comes from all [place] treatment facilities. Test Date/Time Test Type Test Details Facility Name Aug 10, 2023 12:00 AM Laboratory - Chemi stry Order VITAMIN D (25-OH) BLOOD (SST-SERUM) [facility] Aug 10, 2023 12:00 AM Laboratory - Chemi stry Order MICROALBUMIN CREATININE RATIO PANEL URINE (RANDOM) [facility] Aug 10, 2023 12:00 AM Laboratory - Chemi stry Order BASIC METABOLIC PANEL (fasting) BLOOD (SST-SERUM) [facility] Aug 10, 2023 12:00 AM Laboratory - Chemi stry Order LIVER FUNCTION BLOOD (SST-SERUM) [facility] Aug 10, 2023 12:00 AM Laboratory - Chemi stry Order LIPID PANEL FASTING BLOOD (SST-SERUM) [facility] Aug 10, 2023 12:00 AM Laboratory - Chemi stry Order CBC AND DIFF (AUTO) BLOOD (LAV-BLOOD) [facility] Aug 10, 2023 12:00 AM Laboratory - Chemi stry Order HEMOGLOBIN A1C PANEL BLOOD (LAV-BLOOD) [facility] Aug 10, 2023 12:00 AM Laboratory - Chemi stry Order TSH BLOOD (SST-SERUM) [facility] Lab Results: +/- 30 days of the encounter This section includes the Chemistry and Hematology Lab Results on record with [place] for the patient. Radiology Reports and Pathology Reports are provided separately, in subsequent sections. Lab Results This section contains the Chemistry/Hematology Results that were resulted 30 days before or 30 daysafter the date of the Encounter. Date/Time Source Result Type Result - Unit Interpretation Reference Range Comment Sep 09, 2023 07:34 AM [facility] LIPID PANEL FASTING Specimen Type: SERUM No comment entered. Ordering Provider: VALERIE GARCIA Report Released Date/Time: Oct 06, 2022 01:18 PM Reporting Lab: [address] [address] Performing Lab: [address] [address] CHOLESTEROL 187 mg/dL TRIGLYCERIDE 138 mg/dL 0-150 LDL calculated 121 mg/dL 0-129 CHOL/HDL 4.9 HDL CHOLESTEROL 38 mg/dL L 40-60 Sep 09, 2023 07:34 AM [facility] BASIC METABOLIC PANEL (fasting) Specimen Type: SERUM No comment entered. Ordering Provider: VALERIE GARCIA Report Released Date/Time: Oct 06, 2022 01:18 PM Reporting Lab: [address] [address] Performing Lab: [address] [address] UREA NITROGEN 13 mg/dL 7-25 GLUCOSE 101 mg/dL H 65-100 SODIUM 137 mmol/L 135-145 POTASSIUM 4.6 mmol/L 3.5-5.0 CHLORIDE 105 mmol/L 100-110 CO2 23 meq/L 20-30 CREATININE, Serum 0.86 mg/dL 0.50-1.40 eGFR(CKD-EPI 2020) >90 mL/min >60 Sep 09, 2023 07:34 AM [facility] HEMOGLOBIN A1C PANEL Specimen Type: BLOOD Comment: Values obtained from A1C measurements can vary. For atypical A1C assays, a reported value of 7.0 could actually be between 6.72 and 7.28 if measured by a reference method. A reported value of 9.0 could actually be between 8.73 and 9.27. Ref: http://www.[facility] p.org/CAPdata. asp Ordering Provider: VALERIE GARCIA Report Released Date/Time: Oct 06, 2022 01:18 PM Reporting Lab: [facility] [address] Performing Lab: [facility] [address] HEMOGLOBIN A1C 5.2 4.0-5.6 Sep 09, 2023 07:34 AM [facility] LIVER FUNCTION Specimen Type: SERUM No comment entered. Ordering Provider: VALERIE GARCIA Report Released Date/Time: Oct 06, 2022 01:18 PM Reporting Lab: [facility] [address] [address] Performing Lab: [address] [address] PROTEIN,TOTAL 7.2 g/dL 6.0-8.3 ALBUMIN 4.2 g/dL 3.5-5.0 ALKALINE PHOSPHATASE 70 U/L 40-150 AST 17 U/L 5-34 ALT 19 U/L BILIRUBIN, TOTAL 0.9 mg/dL 0.2-1.2 Sep 09, 2023 07:34 AM [facility] TSH Specimen Type: SERUM No comment entered. Ordering Provider: VALERIE GARCIA Report Released Date/Time: Oct 06, 2022 01:18 PM Reporting Lab: [facility] [address] Performing Lab: [facility] [address] TSH 1.02 u[IU]/mL 0.35-5.00 Sep 09, 2023 07:34 AM [facility] PSA Specimen Type: SERUM No comment entered. Ordering Provider: VALERIE GARCIA Report Released Date/Time: Oct 06, 2022 01:18 PM Reporting Lab: [facility] [address] Performing Lab: [facility] [address] [facility] [address] PSA 1.33 ng/mL 0.00-4.00 Sep 09, 2023 07:34 AM [facility] MICROALBUMIN CREATININE RATIO PANEL Specimen Type: URINE No comment entered. Ordering Provider: VALERIE GARCIA Report Released Date/Time: Oct 06, 2022 01:19 PM Reporting Lab: [facility] [address] [facility] [address] Performing Lab: [facility] [address] [facility] [address] MICROALBUMIN/C REATININE RATIO 11.5 mg/g 0-29.9 MICROALBUMIN,Q UANTITATIVE 1.1 mg/dL RR UNAVAIL CREATININE URINE 95.90 mg/dL Sep 09, 2023 07:34 AM [facility] CBC AND DIFF (AUTO) Specimen Type: BLOOD No comment entered. Ordering Provider: VALERIE GARCIA Report Released Date/Time: Oct 06, 2022 01:18 PM Reporting Lab: [facility] [address] [facility] [address] Performing Lab: [facility] [address] [facility] [address] WBC 5.88 10*3/uL 4.50-11.00 RBC 5.14 10*6/uL 4.23-5.66 HGB 14.6 g/dL 12.8-17 HCT 43.5 39.2-50.4 MCV 84.6 fL 82-99 MCHC 33.6 g/dL 30.8-35.1 PLT 300 10*3/uL 140-360 RDW-CV 12.4 12.0-16.0 MONO, ABS 0.56 10*3/uL 0.30-1.10 MCH 28.4 pg 26.2-32.6 NEUT % 64.5 43.7-75.8 LYMPH % 23.6 14.0-42.3 MONO % 9.5 5.1-13.7 EOS % 1.4 0.4-6.8 BASO % 0.7 0.1-2.0 NEUT, ABS 3.79 10*3/uL 2.20-7.60 LYMPH, ABS 1.39 10*3/uL 1.00-3.20 EOS, ABS 0.08 10*3/uL 0.03-0.44 BASO, ABS 0.04 10*3/uL 0.01-0.13 IMMATURE GRAN % 0.3 0.0-0.7 IMMATURE GRAN, ABS 0.02 10*3/uL 0.00-0.06 NRBC % 0.0 0.0-0.0 NRBC, ABS 0.00 10*3/uL 0.00-0.00 Advance Directives: All historical and current Section Date Range: From patient's date of to the date document was created. This section includes ALL of a patient's completed or amended [place] Advance and Rescinded Directives. The entries below indicate that a directive exists for the patient, but an actual copy is not included with this document. The data comes from all [place] facilities. Date Advance Directives Provider Source Jun 25, 2023 ADVANCE DIRECTIVE DISCUSSION AMAYA FRANZ [facility] Aug 06, 2017 ADVANCE DIRECTIVE ABDIRASHID [facility] Radiology Reports: +/- 30 days of the encounter Radiology Reports For cases when an order for radiology services may have been completed prior to the date of the Encounter, the report list includes the Radiology Reports that were completed up to 30 days before dateof the Encounter. For cases when an order for radiology services may have been completed after the date of the Encounter, the report list also includes the Radiology Reports that were completed up to30 days after date of the Encounter. The data comes from all [place] treatment facilities. Date/Time Radiology Report Provider Source Sep 17, 2023 02:56 PM SPINE CERVICAL, 4 OR 5 VIEWS: EMA ESTRADA [id number] M Exm Date: SEP 17, 2023@14:56 Req Phys: JOSE,LAZARO Pat Loc: C[facility]/SO/PACT 9 (Req'g Loc) Img Loc: [facility]/BUILDING 1 Service: Unknown [facility] , (Case [id number] COMPLETE) SPINE CERVICAL, 4 OR 5 VIEWS (RAD Detailed) CPT:16752 Reason for Study: neck pain Clinical History: Report Status: Verified Date Reported: SEP 17, 2023 Date Verified: SEP 17, 2023 Investor Relations Specialist E-Sig:/ES/MAVERICK SANCHEZ JR Report: Study: AP, lateral and left and right oblique views of the cervical spine. Comparison: None. Findings: There is intervertebral disc space narrowing, vertebral endplate sclerosis and anterior osteophytosis which is mild to moderate in degree and consistent with degenerative disc disease. There is overall straightening of the normal cervical lordosis, likely secondary to patient positioning, pain or the degenerative changes. There is mild left C5-7 level bony neural foraminal stenosis secondary to bony osteophyte formation. The vertebral heights are normal. There is mild facet and uncovertebral joint hypertrophic change. The bony mineralization is normal. No bony fracture, dislocation or subluxation is identified. The skull base appears normal. Impression: Multilevel degenerative changes in the cervical spine, as described above. Primary Diagnostic Code: No immediate attention required Primary Interpreting Staff: MAVERICK SANCHEZ JR, Radiologist (Investor Relations Specialist) /MAVERICK DU JR [facility] Encounter Notes: All associated encounter notes This section contains the clinical notes associated to the Encounter. Date/Time Encounter Note(s) Provider Source Sep 17, 2023 03:39 PM PRIMARY CARE NURSE PRACTITIONER OUTPATIENT NOTE: LOCAL TITLE: NURSE PRACTITIONER OUTPATIENT NOTE STANDARD TITLE: PRIMARY CARE NURSE PRACTITIONER OUTPATIENT NOTE DATE OF NOTE: SEP 17, 2023@15:39 ENTRY DATE: SEP 17, 2023@15:40:10 AUTHOR: LEXI BROOKE COSIGNER: URGENCY: STATUS: COMPLETED OUTPATIENT MENTAL HEALTH CLINIC: FOLLOW-UP HPI: ALVINATimoteoEMA BROOKE, a 67 y/o male previously diagnosed with Major depressive disorder, Attention deficit hyperactivity disorder and Alcohol Use Disorder presents for [facility] Follow-Up appointment. Last seen by This Provider on 08/13/23 Stormed off at work today because he was frustrated with the laboratory secretary and an IT issue that persisted into a second day. These outbursts are not regular occurrences Working 50 plus hours per week ADHD symptoms have been Shitty without the ADHD medication. Agrees that he'd prefer to wait until ablation for arrhythmia before reinitiating an ADHD medication Has been taking a modified version of acamprosate regimen; 33 mg TID. I take one every morning and I take one at lunch and another at 2 PM. Feels cravings are under control and no longer having GI side effects that he experienced at 666 mg tid; no ETOH since May. Cravings are manageable. Will drink seltzer water and watch a movie when they get bad. Not interested in AA or therapy at present. Depression has been not bad Feels that addition of new BP medication has increased fatigue Prefers to keep bupropion at current dose Sleep is adequate Granddaughter sina turn 1 y/o tomorrow and grandson is 5 months Denies active or passive SI explicitly and convincingly denied SI, intent or plan and denied thoughts of harming others. SUBSTANCE USE: Caffeine: one coffee in the morning Tobacco: quit 31 years ago Alcohol: none since 4L admit on 06/21/23 Narcotics: denied Cannabis: few hits a day for 'anxiety and sleep.' Denies problematic pattern of use leading to clinically significant impairment or distress. Don't smoke at work PSYCHIATRIC HISTORY: Alcohol use began at age 17 while still in high school. Heavy use in the , continue to increase use until 2010. Second DUI prompted abstinence. Of late, a pint of vodka and a sixpack of beer daily. Past history of DUI, sober between 2010 and 2018. On naltrexone between 2020 and 2022, disliked how he felt on the medication, stated that there was muscle tightness and the need to stretch. Progressive increase in intake over the past year. Denies history of blackouts, DTs or withdrawal seizures. Opioid-opioid dependence after knee injury and surgery in 2005, stopped opioids in 2009 with Suboxone x14 months. Reportedly increased alcohol use during and after Suboxone. States today that he has not used opioids for at least 3 to 4 years. Diagnosed with ADHD and started on ADDERALL in 2010 Medication trials: NALTREXONE AMPHETAMINE/DEXTROAMPHETAM INE DULOXETINE QUETIAPINE Inpatient Hospitalizations: 2006 for SI 2023 for SI and AUD Suicidal Acts and Self-Harm: denied HISTORY OF VIOLENCE/ASSAULTING OTHERS: denied FAMILY MENTAL HEALTH AND SUBSTANCE USE HISTORY: Cousin, Suicide after coming home from [place] ADHD diagnosed in children (per chart review) AUD - great uncles [employer] Safety Counselling LMSC was conducted. 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 In [facility] for a week or two. MENTAL STATUS EXAM: Appearance: consistent w/ stated age, appropriate grooming and hygiene Behavior: polite, cooperative and treatment motivated Motor: no tics, tremors, or abnormal movements Speech: normal rate, volume and articulation Thought process: logical, linear and coherent Thought content: denies hallucinations, delusions, or paranoia. No ideas of reference. No thoughts insertion. Denies homicidal thoughts. Denies suicidal ideation, intent or plan. Insight and Judgment: both intact Cognition: alert and oriented x 3, good attention, memory grossly intact to conversational testing Mood: okay Affect: mood congruent MEDICAL HISTORY: Active Problem Alcohol dependence F10.230 06/23/2023 REAGAN MÁRQUEZ Atrial flutter I48.92 04/29/2023 LAZARO GARCIA Long-term current use of anticoagul 04/28/2023 KATYA FRANKS Admits alcohol use Z72.89 06/05/2022 PRETTY MORRIS Steatosis of liver K76.0 08/28/2021 LAZARO GARCIA Hypertension I10. 04/21/2019 MARYSE VARNER Attention deficit hyperactivity dis 06/21/2023 PRETTY MORRIS Impaired fasting glucose R73.01 09/20/2020 COLLIN PAGE Cataract, Unspecified 366.9 10/10/2014 JESUS RITCHIE Degenerative joint disease 715.90 10/03/2014 PRETTY MOONEY Major depressive disorder F32.9 06/21/2023 PRETTY MORRIS ALLERGIES: Data on this list may not be complete. Please check JLV. FACILITY ALLERGY/ADR -------- No Remote Allergy/ADR Data available for this patient [place] [facility] [place] [facility] No Known Allergies MEDICATIONS: reviewed and updated in CPRS Active Outpatient Medications (including Supplies): Active Outpatient Medications Status 1) ACAMPROSATE CA 333MG EC TAB TAKE TWO TABLETS BY MOUTH ACTIVE THREE TIMES DAILY WITH MEALS TO BE USED UNTIL REMAINDER OF REGULAR PRESCRIPTION ARRIVES IN THE MAIL 2) AMLODIPINE BESYLATE 5MG TAB TAKE ONE TABLET BY MOUTH ACTIVE ONCE DAILY FOR BLOOD PRESSURE, DO NOT TAKE WITH GRAPEFRUIT JUICE 3) APIXABAN 5MG TAB TAKE ONE TABLET BY MOUTH EVERY 12 ACTIVE HOURS 4) BUPROPION HCL 200MG 12HR SA TAB TAKE ONE TABLET BY ACTIVE MOUTH ONCE DAILY 5) CICLOPIROX 8% TOP SOLN APPLY SMALL AMOUNT TOPICALLY ACTIVE ONCE DAILY WIPE OFF WITH ALCOHOL EVERY 7 DAYS; MAX USE 12 MONTHS 6) FLUOCINONIDE 0.05% CREAM APPLY A SMALL AMOUNT ACTIVE TOPICALLY ONCE DAILY FOR PALMAR PSORIATIC LESIONS 7) FOLIC ACID 1MG TAB TAKE ONE TABLET BY MOUTH ONCE ACTIVE DAILY FOR ANEMIA FROM INADEQUATE FOLIC ACID VITAMIN/NUTRITION SUPPLEMENT 8) LISINOPRIL 10MG TAB TAKE ONE TABLET BY MOUTH ONCE ACTIVE (S) DAILY TO CONTROL BLOOD PRESSURE 9) METOPROLOL SUCCINATE 50MG SA TAB TAKE ONE TABLET BY ACTIVE MOUTH AT BEDTIME FOR HIGH BLOOD PRESSURE (NOTE DOSE) 10) MOISTURIZING LOTION APPLY LIBERAL AMOUNT TOPICALLY ACTIVE ONCE DAILY NEEDED FOR DRY SKIN 11) MULTIVITAMIN/MINERALS CAP/TAB TAKE ONE CAP/TAB BY ACTIVE MOUTH ONCE DAILY 12) SUNSCREEN 30-50/AVOBENZONE/PABA-F LOTION APPLY A ACTIVE LIBERAL AMOUNT TOPICALLY NEEDED TO PREVENT SUNBURN 13) THIAMINE 100MG TAB TAKE TWO TABLETS BY MOUTH ONCE ACTIVE DAILY Active Non-VA Medications Status 1) Non-VA ASCORBIC ACID 500MG TAB 500MG BY MOUTH DAILY ACTIVE 2) Non-VA FISH OIL 1000MG (500MG DHA/EPA) CAP 1000MG BY ACTIVE MOUTH DAILY 3) Non-VA HOMA CAP/TAB DOSE UNKNOWN BY MOUTH ONCE ACTIVE DAILY 4) Non-VA MULTIVITAMIN CAP/TAB 1 TABLET BY MOUTH ONCE ACTIVE DAILY 5) Non-VA OTHER CAP/TAB MEDIUM CHAIN TRIGLYCERIDES BY ACTIVE MOUTH ONCE DAILY 6) Non-VA OTHER CAP/TAB PLANT PROTEIN BY MOUTH ONCE ACTIVE DAILY 7) Non-VA ZINC 50MG (FROM SULFATE) CAP 220MG BY MOUTH ACTIVE DAILY 20 Total Medications LABS AND STUDIES: MICROALB/CR RATIO: 11.5 MICROALBUMIN URINE: 1.1 CREATININE URINE: 95.90 HGB A1C (WR): 5.2 WBC: 5.88 RBC: 5.14 HGB: 14.6 HCT: 43.5 MCV: 84.6 MCHC: 33.6 RDW: 12.4 PLT: 300 MCH: 28.4 Neut %: 64.5 Lymph %: 23.6 Pleasants %: 9.5 Eos %: 1.4 Baso %: 0.7 Neut, Abs: 3.79 Lymph, Abs: 1.39 Pleasants, Abs: 0.56 Eos, Abs: 0.08 Baso, Abs: 0.04 Immature Granulocytes %: 0.3 Immature Granulocytes, Abs: 0.02 NRBC%: 0.0 NRBC#: 0.00 GLUCOSE: 101 H UREA NITROGEN: 13 SODIUM: 137 POTASSIUM: 4.6 CHLORIDE: 105 CO2: 23 CHOLESTEROL: 187 PROTEIN,TOTAL: 7.2 ALBUMIN: 4.2 ALKALINE PHOSPHATASE: 70 SGOT: 17 SGPT: 19 TRIGLYCERIDE: 138 LDL CHOL: 121 CHOL/HDL RATIO: 4.9 PROSTATIC SP ANTIGEN: 1.33 HDL: 38 L BILIRUBIN,TOT.: 0.9 TSH (Access): 1.02 CREATININE-EGFR: 0.86 eGFR CKD-EPI 2020: >90 SAFETY ASSESSMENT: No acute safety concerns. Convincingly denies any thoughts, intents, or plans to harm self or others. Chronic risk is elevated by status and mental illness but is currently mitigated by participation in treatment and demonstration of help-seeking behaviors. IMPRESSION: presents as polite, cooperative and treatment motivated Reports adherence to current medications with significant therapeutic benefit and denies side effects. Reports desire to continue with current pharmacotherapy regimen. [place]'s current level of functioning despite recent discontinuation of ETOH, untreated ADHD symptoms and significant cardiac concerns is impressive. Abstinence from ETOH an especially positive prognostic factor Agrees that he'd prefer to wait until after arrhythmia has been brought under control before further discussion of risks and benefits of reinitiating ADHD medication Has modified acamprosate regimen and is currently taking 333 mg po tid No acute safety concerns Diagnosis: Attention deficit hyperactivity disorder, predominantly inattentive type Major depressive disorder, recurrent, unspecified Alcohol Use Disorder, severe, in early remission PLAN: 1) CONTINUE ACAMPROSATE 666 MG PO TID 2) CONTINUE BUPROPION SR, 200 MG PO DAILY Labs: None today Follow-Up: 11/12/23 Discussed risks and benefits of proposed medication treatments including FDA approved indications and off-label uses, as well as common and severe side effects. comprehended all information discussed, had opportunity to ask questions which were answered to their satisfaction, and voluntarily and without duress agreed to trial as documented. CONTACT AND CRISIS INFO: informed that This Provider can be contacted at , [phone] or via Secure Messaging. We have reviewed the Crisis Hotline (074, dial #1 for line), and the [place] has been instructed to call 911 or go to the nearest ED if acutely suicidal or experiencing a mental health emergency. INFORMED CONSENT REVIEWED: At beginning of session reviewed rights and limits of confidentiality, mandatory reporting situations, duty to warn and protect, risk of suicide or homicide, potential elder or child abuse/neglect and [place] Warning, (if treatment team finds patient to be an acute danger to himself or others, that this information could be relayed to a court of law and presented to a home organizer), and DOD access for active-duty service members. CODING: Total time today was 30 minutes, which included an in-person visit with the patient, providing counseling and education, and time spent reviewing the record, ordering meds, completing documentation, and coordinating care. CLINICAL REMINDERS: Suicide Screen: C-SSRS Screening [place] Suicide Severity Rating Scale (C-SSRS) screener 1. Over the past month, have you wished you were or wished you could go to sleep and not wake up? No 2. Over the past month, have you had any actual thoughts of killing yourself? No 3. Over the past month, have you been thinking about how you might do this? Response not required due to responses to other questions. 4. Over the past month, have you had these thoughts and had some intention of acting on them? Response not required due to responses to other questions. 5. Over the past month, have you started to work out or worked out the details of how to kill yourself? Response not required due to responses to other questions. 6. If yes, at any time in the past month did you intend to carry out this plan? Response not required due to responses to other questions. 7. In your lifetime, have you ever done anything, started to do anything, or prepared to do anything to end your life (for example, collected pills, obtained a gun, gave away valuables, went to the roof but didn't jump)? Yes 8. If YES, was this within the past 3 months? No Medication Reconciliation: Outpatient: Has the patient been taking medications as documented in the EMLR? YES: The patient has been taking medications as documented in the EMLR. Essential Medication List for Review used to complete this medication reconciliation. INCLUDED IN THIS LIST: Alphabetical list of active outpatient prescriptions dispensed from this VA (local) and dispensed from another VA or DoD facility (remote) as well as inpatient orders (local, pending and active), local clinic medications, locally documented non-VA medications, and local prescriptions that have or been discontinued in the past 90 days. - All changes in medications, including all non-VA/Herbal/OTC medications were entered into CPRS. - If there were any medications the patient should no longer take, they were discontinued. - The patient/caregiver was instructed to update this list, discard old lists, and take this list to the next appointment, whether with a VA or non-VA provider. /brenda/ LEXI BROOKE Psychiatric Mental Health Nurse Practitioner Signed: 09/17/2023 16:07 LEXI BROOKE [place] [facility]
--- OUTSIDE RECORDS SUMMARY | 2024-06-06 17:56 | XMS_ITS ---
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 Date/Time Encounter Type Encounter Description Reason Provider Source Dec 09, 2023 08:15 AM MANUAL THERAPY 1/> [facility] ICD-10-CM M54.2 Cervicalgia EUFEMIA ORELLANA [facility] Encounter Template Text not used by [place] Assessments - Encounter Diagnoses This section includes the primary and secondary diagnoses documented for the Encounter. Date/Time Primary/Secondary Diagnosis Diagnosis Name Provider Source Dec 09, 2023 09:09 AM PRIMARY Cervicalgia EUFEMIA ORELLANA [place] [facility] [place] [facility] Plan of Treatment: Future Appointments (+ 6 months) and Future Tests (+/- 45 days) The Plan of Treatment section includes future care activities for the patient from all [place] treatmentfacilities. This section includes future appointments and future orders which are active, pending or scheduled. Future Appointments This section includes appointments that were scheduled to occur 6 months from the date of the Encounter, up to a maximum of 20 appointments. The data comes from all [place] treatment facilities. Appointment Date/Time Appointment Type Appointme nt Facility Name Dec 15, 2023 01:00 PM AMBULATORY - REHAB MEDICIN [facility] [place] [facility] Dec 24, 2023 03:00 PM AMBULATORY - PSYCHIATRY [facility] [place] [facility] Dec 31, 2023 02:30 PM AMBULATORY - REHAB MEDICIN E [facility] [place] [facility] Jan 17, 2024 08:30 AM AMBULATORY - MEDICINE [facility] [place] [facility] Jan 17, 2024 09:45 AM AM[place]ULATORY - [place]ICINE [place] [facility] [place] [facility] Feb 17, 2024 03:30 PM AMBULATORY - PSYCHIATRY [facility] [place] [facility] Mar 23, 2024 08:00 AM AMBULATORY - MEDICINE [facility] [place] [facility] Apr 04, 2024 09:30 AM AMBULATORY - REHAB MEDICIN E [facility] [place] [facility] Apr 05, 2024 03:30 PM AMBULATORY - PSYCHIATRY [facility] [place] [facility] May 03, 2024 10:00 AM AMBULATORY - MEDICINE [facility] May 18, 2024 08:30 AM AMBULATORY - NONE [facility] [place] [facility] Jun 01, 2024 01:00 PM AMBULATORY [facility] MEDICINE [facility] [place] [facility] Jun 08, 2024 03:30 PM AMBULATORY - PSYCHIATRY [facility] Active, Pending, and Scheduled Orders This section includes a listing of several types of active, pending, and scheduled orders, including clinic medications orders, diagnostic test orders, procedure orders and consult orders; where the start date of the order is 45 days before the date of the Encounter or 45 days after the date of theEncounter. The data comes from all [place] treatment facilities. Test Date/Time Test Type Test Details Facility Name Jan 13, 2024 12:00 AM Laboratory - Chemi stry Order BASIC METABOLIC PANEL (non-fasting) BLOOD (SST-SERUM) [facility] Advance Directives: All historical and current Section Date Range: From patient's date of to the date document was created. This section includes ALL of a patient's completed or amended [place] Advance and Rescinded Directives. The entries below indicate that a directive exists for the patient, but an actual copy is not included with this document. The data comes from all [place] facilities. Date Advance Directives Provider Source Jun 25, 2023 ADVANCE DIRECTIVE DISCUSSION AMAYA FRANZ [facility] Aug 06, 2017 ADVANCE DIRECTIVE ABDIRASHID [place] [facility] Encounter Notes: All associated encounter notes This section contains the clinical notes associated to the Encounter. Date/Time Encounter Note(s) Provider Source Dec 09, 2023 07:04 AM PHYSICAL THERAPY NOTE: LOCAL TITLE: PHYSICAL THERAPY STANDARD TITLE: PHYSICAL THERAPY NOTE DATE OF NOTE: DEC 09, 2023@07:04 ENTRY DATE: DEC 09, 2023@07:04:15 AUTHOR: EUFEMIA ORELLANA EXP COSIGNER: URGENCY: STATUS: COMPLETED Initial Evaluation date: 11/25/23 Progress Note Date: Treatment #: 2 Treatment time: 45' Diagnosis: Cervicalgia Provider: Rc EASLEY Treatment Precautions: Aflutter Patient identified by full name and date of SUBJECTIVE: Pt reports pain is 3/10. Overall feeling better, still some pain on the L side. OBJECTIVE: THERAPEUTIC EXERCISE: MINUTES: 15 mins chin tuck in supine standing pec stretch at wall standing self UT release w/ ball at corner MANUAL THERAPY: MINUTES: 30 mins prone scap mobs romboid TPR and STM SUpine DTM/TPR UT, Lev scap, rhomboid manual stretching SCM, UT, Levator and pec SOR and gentle traction grade III CPA glides C2-C5 SOR GAIT TRAINING: MINUTES: NEUROMUSCULAR EDUCATION: MINUTES: OTHER: MINUTES: MODALITIES: MINUTES: [] Contraindication screen completed prior to modality [] Skin intact pre/post SELF CARE/EDUCATION: MINUTES: educated on foam rolling against wall, rolling with hardball KPEDCEHE Access Code: [email or web address] URL: [email or web address] Date: 12/09/2023 Prepared by: Eufemia Orellana Exercises - Seated Gentle Upper Trapezius Stretch - 1 x daily - 7 x weekly - 3 sets - 30 hold - Seated Cervical Retraction - 1 x daily - 7 x weekly - 3 sets - 10 reps - Seated Cervical Flexion AROM - 1 x daily - 7 x weekly - 3 sets - 10 reps - Doorway Pec Stretch at 90 Degrees Abduction - 1 x daily - 7 x weekly - 3 sets - 10 reps - Supine Chin Tuck - 1 x daily - 7 x weekly - 3 sets - 10 reps Patient education was provided for all aspects of care during this clinical encounter. ASSESSMENT: Pt w/ overall improvement, less pain. PLAN: 1-4 more visits NAGS and SNAGS next visit Soft tissue work deep neck flexor strengthening stretching- pecs, postural as well as cervical NAGS and SNAGS modalities for pain postural stab pt ed HEP /es/ Eufemia Orellana PT,DPT PHYSICAL THERAPIST Signed: 12/09/2023 09:15 EUFEMIA ORELLANA [place] [facility]
--- OUTSIDE RECORDS SUMMARY | 2024-06-06 17:56 | XMS_ITS ---
Author Name [facility] [place] Address [address] [place] [address] Care Team Providers Care Biometrics Analyst Name Role Phone ARIANNE CHERY Primary Care [...] Patient's Relationship to Policy Rizvi [facility] CE ORGANESPERANZA [employer] Aug 29, 2017 [id number] [id number] Kathy ESTRADA [facility] CE ORGANIZ COMMO [facility] Mar 01, 2014 [id number] [phone] Kathy ESTRADA SPOUSE MEDICARE (WNR) MEDICARE (M) PART A Sep 29, 2020 PART A [id number] [facility] [place] ESTRADA PATIENT MEDICARE (WNR) MEDICARE (M) PART A Sep 29, 2020 PART A [id number] [facility] [phone] [place] ESTRADA PATIENT Selected Encounter This section includes the information on record at [place] for the Encounter. Date/Time Encounter Type Encounter Description Reason Pro vider Source Aug 16, 2023 12:27 PM Outpatient Encounter ADMIN PAT ACTIVTIES (MASNONCT) IHE Encounter Template Text not used by [place] Plan of Treatment: Future Appointments (+ 6 months) and Future Tests (+/- 45 days) The Plan of Treatment section includes future care [facility] for the [facility] [place] [facility] This section includes future appointments and future orders which are active, pending or scheduled. Future Appointments This section includes appointments that were scheduled to occur 6 months from the date of the Encounter, up to a maximum of 20 appointments. The data comes from all [place] treatment facilities. Appointment Date/Time Appointment Type Appointme nt Facility Name Aug 27, 2023 11:30 AM AMBULATORY [facility] MEDICINE [facility] [place] [facility] Sep 14, 2023 09:30 AM AMBULATORY - MEDICINE [facility] [place] [facility] Sep 17, 2023 03:30 PM AMBULATORY - PSYCHIATRY [facility] [place] [facility] Oct 05, 2023 01:00 PM AMBULATORY - MEDICINE [facility] [place] [facility] Oct 14, 2023 02:00 PM AMBULATORY - NONE [facility] [place] [facility] Nov 12, 2023 03:30 PM AMBULATORY - PSYCHIATRY [facility] [place] [facility] Nov 25, 2023 07:30 AM AMBULATORY - REHAB MEDICIN E [facility] [place] [facility] Nov 25, 2023 08:30 AM AMBULATORY - PS[facility]CHIATRY [facility] [place] [facility] Nov 25, 2023 11:00 AM [facility] Dec 03, 2023 07:30 AM AMBULATORY - REHAB MEDICIN E [facility] [place] [facility] Dec 09, 2023 08:15 AM AMBULATORY - REHAB MEDICIN E [facility] [place] [facility] Dec 15, 2023 01:00 PM AMBULATORY - REHAB MEDICIN E [facility] [place] [facility] Dec 24, 2023 03:00 PM AMBULATORY - PSYCHIATRY [facility] [place] [facility] Dec 31, 2023 02:30 PM AMBULATORY - REHAB MEDICIN E [facility] [place] [facility] Jan 17, 2024 08:30 AM AMBULATORY - MEDICINE [facility] Jan 17, 2024 09:45 AM AMBULATORY - MEDICINE [facility] Active, Pending, and Scheduled Orders This section includes a listing of several types of active, pending, and scheduled orders, including clinic medications orders, diagnostic test orders, procedure orders and consult orders; where the start date of the order is 45 days before the date of the Encounter or 45 days after the date of theEncounter. The data comes from all [place] treatment facilities. Test Date/Time Test Type Test Details Facility Name Aug 10, 2023 12:00 AM Laboratory - Chemi stry Order VITAMIN D (25-[place]) BLOOD (SST-SERUM) [facility] Aug 10, 2023 12:00 AM Laboratory - Chemi stry Order MICROALBUMIN CREATININE RATIO PANEL URINE (RANDOM) [facility] Aug 10, 2023 12:00 AM Laboratory - Chemi stry Order BASIC METABOLIC PANEL (fasting) BLOOD (SST-SERUM) [facility] Aug 10, 2023 12:00 AM Laboratory - Chemi stry Order LIVER FUNCTION BLOOD (SST-SERUM) [facility] Aug 10, 2023 12:00 AM Laboratory - Chemi stry Order LIPID PANEL FASTING BLOOD (SST-SERUM) [facility] Aug 10, 2023 12:00 AM Laboratory - Chemi stry Order CBC AND DIFF (AUTO) BLOOD (LAV-BLOOD) [facility] Aug 10, 2023 12:00 AM Laboratory - Chemi stry Order HEMOGLOBIN A1C PANEL BLOOD (LAV-BLOOD) [facility] Aug 10, 2023 12:00 AM Laboratory - Chemi stry Order TSH BLOOD (SST-SERUM) [facility] Lab Results: +/- 30 days of the encounter This section includes the Chemistry and Hematology Lab Results on record with [place] for the patient. Radiology Reports and Pathology Reports are provided separately, in subsequent sections. Lab Results This section contains the Chemistry/Hematology Results that were resulted 30 days before or 30 daysafter the date of the Encounter. Date/Time Source Result Type Result - Unit Interpretation Reference Range Comment Sep 09, 2023 07:34 AM [facility] LIPID PANEL FASTING Specimen Type: SERUM No comment entered. Ordering Provider: VALERIE GARCIA Report Released Date/Time: Oct 06, 2022 01:18 PM Reporting Lab: [facility] [address] [phone] Performing Lab: [facility] [address] [address] CHOLESTEROL 187 mg/dL TRIGLYCERIDE 138 mg/dL 0-150 LDL calculated 121 mg/dL 0-129 CHOL/HDL 4.9 HDL CHOLESTEROL 38 mg/dL L 40-60 Sep 09, 2023 07:34 AM [facility] BASIC METABOLIC PANEL (fasting) Specimen Type: SERUM No comment entered. Ordering Provider: VALERIE GARCIA Report Released Date/Time: Oct 06, 2022 01:18 PM Reporting Lab: [facility] [address] [address] Performing Lab: [facility] [address] [address] UREA NITROGEN 13 mg/dL 7-25 GLUCOSE 101 mg/dL H 65-100 SODIUM 137 mmol/L 135-145 POTASSIUM 4.6 mmol/L 3.5-5.0 CHLORIDE 105 mmol/L 100-110 CO2 23 meq/L 20-30 CREATININE, Serum 0.86 mg/dL 0.50-1.40 eGFR(CKD-EPI 2020) >90 mL/min >60 Sep 09, 2023 07:34 AM [facility] HEMOGLOBIN A1C PANEL Specimen Type: BLOOD Comment: Values obtained from A1C measurements can vary. For atypical A1C assays, a reported value of 7.0 could actually be between 6.72 and 7.28 if measured by a reference method. A reported value of 9.0 could actually be between 8.73 and 9.27. Ref: http://www.ngs p.org/CAPdata. asp Ordering Provider: VALERIE GARCIA Report Released Date/Time: Oct 06, 2022 01:18 PM Reporting Lab: [facility] [address] [phone] Performing Lab: [address] [address] HEMOGLOBIN A1C 5.2 4.0-5.6 Sep 09, 2023 07:34 AM [facility] LIVER FUNCTION Specimen Type: SERUM No comment entered. Ordering Provider: VALERIE GARCIA Report Released Date/Time: Oct 06, 2022 01:18 PM Reporting [facility] [address] [address] Performing Lab: [facility] [address] [address] PROTEIN,TOTAL 7.2 g/dL 6.0-8.3 ALBUMIN 4.2 g/dL 3.5-5.0 ALKALINE PHOSPHATASE 70 U/L 40-150 AST 17 U/L 5-34 ALT 19 U/L BILIRUBIN, TOTAL 0.9 mg/dL 0.2-1.2 Sep 09, 2023 07:34 AM [facility] TSH Specimen Type: SERUM No comment entered. Ordering Provider: VALERIE GARCIA Report Released Date/Time: Oct 06, 2022 01:18 PM Reporting Lab: [facility] [address] [address] Performing Lab: [facility] [address] [address] TSH 1.02 u[IU]/mL 0.35-5.00 Sep 09, 2023 07:34 AM [facility] PSA Specimen Type: SERUM No comment entered. Ordering Provider: VALERIE GARCIA Report Released Date/Time: Oct 06, 2022 01:18 PM Reporting Lab: [facility] [address] [address] Performing [facility]: [facility] [address] [address] PSA 1.33 ng/mL 0.00-4.00 Sep 09, 2023 07:34 AM [facility] MICROALBUMIN CREATININE RATIO PANEL Specimen Type: URINE No comment entered. Ordering Provider: VALERIE GARCIA Report Released Date/Time: Oct 06, 2022 01:19 PM Reporting Lab: [facility] [address] [address] Performing Lab: [facility] [address] [address] MICROALBUMIN/C REATININE RATIO 11.5 mg/g 0-29.9 MICROALBUMIN,Q UANTITATIVE 1.1 mg/dL RR UNAVAIL CREATININE URINE 95.90 mg/dL Sep 09, 2023 07:34 AM [facility] CBC AND DIFF (AUTO) Specimen Type: BLOOD No comment entered. Ordering Provider: VALERIE GARCIA Report Released Date/Time: Oct 06, 2022 01:18 PM Reporting Lab: [facility] [address] [address] Performing Lab: [facility] [address] [phone] WBC 5.88 10*3/uL 4.50-11.00 RBC 5.14 10*6/uL [...] ALL of a patient's completed or amended [place] Advance and Rescinded Directives. The entries below indicate that a directive exists for the patient, but an actual copy is not included with this document. The data comes from all [place] facilities. Date Advance Directives Provider Source Jun 25, 2023 ADVANCE DIRECTIVE DISCUSSION AMAYA FRANZ [facility] Aug 06, 2017 ADVANCE DIRECTIVE ABDIRASHID [place] [facility] Encounter Notes: All associated encounter notes This section contains the clinical notes associated to the Encounter. Date/Time Encounter Note(s) Provider Source Aug 16, 2023 12:27 PM MEDICATION MGT NOT E: LOCAL TITLE: MEDICATION RENEWAL STANDARD TITLE: MEDICATION MGT NOTE DATE OF NOTE: AUG 16, 2023@12:27 ENTRY DATE: AUG 16, 2023@12:27:51 AUTHOR: YULI BURTON EXP COSIGNER: URGENCY: STATUS: COMPLETED Hello we have a that has been out of his BLOOD THINNER MEDICATION FOR A FEW DAYS AND IS REQUESTING TO HAVE IT RENEWED FOR WINDOW MOLD INJECTOR IN [facility] PLEASE RENEW IF APPROPRIATE Active Outpatient Medications (including Supplies): Active Outpatient Medications Status = 1) APIXABAN /brenda/ YULI BURTON PASSENGER CAR CONDUCTOR Signed: 08/16/2023 12:28 Receipt Acknowledged By: 10/14/2023 09:29 /brenda/ LAZARO GARCIA MD PHYSICIAN YULI BURTON [facility]
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
--- OUTSIDE RECORDS SUMMARY | 2024-06-06 17:56 | XMS_ITS | Encounter Summary ---
Author Name [facility] [place] Organization [place] Address [address] [place] [id number] Care Team Providers Care Documentation Nurse Name Role Phone ARIANNE CHERY Primary [...] Name Patient's Relationship to Policy [facility]izvi [facility] ORGANESPERANZA [employer] Aug 29, 2017 [id number] Kathy ESTRADA [facility] ORGANIZ COMMO [facility] Mar 01, 2014 [id number] [phone] Kathy ESTRADA SPOUSE MEDICARE (WNR) MEDICARE (M) PART A Sep 29, 2020 PART A [id number] [facility] Gu[place]ito ESTRADA PATIENT MEDICARE (WNR) MEDICARE (M) PART A Sep 29, 2020 PART A [id number] [place] ESTRADA PATIENT Selected Encounter This section includes the information on record at [place] for the Encounter. Date/Time Encounter Type Encounter Description Reason Provider Source Oct 05, 2023 01:00 PM OFFICE O/P EST MOD 30 MIN PRIMARY CARE/MEDICINE ICD-10-CM R21 Rash and other nonspecific skin eruption VALERIE GARCIA Kathy Encounter Template Text not used by [place] Assessments - Encounter Diagnoses This section includes the primary and secondary diagnoses documented for the Encounter. Date/Time Primary/Secondary Diagnosis Diagnosis Name Provider Source Oct 05, 2023 01:33 PM PRIMARY Rash and other nonspecific skin eruption VALERIE GARCIA DAVINA [place] Oct 05, 2023 01:33 PM SECONDARY Essential (primary) hypertension VALERIE GARCIALETICIA [place] Plan of Treatment: Future Appointments (+ 6 months) and Future Tests (+/- 45 days) The Plan of Treatment section includes future care activities for the patient from all [place] treatmentfacilities. This section includes future appointments and future orders which are active, pending or scheduled. Future Appointments This section includes appointments that were scheduled to occur 6 months from the date of the Encounter, up to a maximum of 20 appointments. The data comes from all [place] treatment facilities. Appointment Date/Time Appointment Type Appointme nt Facility Name Oct 14, 2023 02:00 PM AMBULATORY - NONE [facility] [place] [facility] Nov 12, 2023 03:30 PM AMBULATORY - PSYCHIATRY [facility] [place] [facility] Nov 25, 2023 07:30 AM AMBULATORY - REHAB MEDICIN E [facility] [place] [facility] Nov 25, 2023 08:30 AM AMBULATORY - PSYCHIATRY [facility] [place] [facility] Nov 25, 2023 11:00 AM AMBULATORY - MEDICINE [facility] Dec 03, 2023 07:30 AM AMBULATORY - REHAB MEDICIN E [facility] [place] [facility] Dec 09, 2023 08:15 AM AMBULATORY - REHAB MEDICIN E [facility] [place] [facility] Dec 15, 2023 01:00 PM AMBULATORY - REHAB MEDICIN E [facility] [place] [facility] Dec 24, 2023 03:00 PM AMBULATORY - PSYCHIATRY [facility] [place] [facility] Dec 31, 2023 02:30 PM AMBULATORY - REHAB MEDICIN E [facility] [place] [facility] Jan 17, 2024 08:30 AM AMBULATORY - MEDICINE [facility] Jan 17, 2024 09:45 AM AMBULATORY - MEDICINE [facility] Feb 17, 2024 03:30 PM [facility]UL[facility] - [facility] Mar 23, 2024 08:00 AM [facility] Apr 04, 2024 09:30 AM AMBULATORY - REHAB MEDICIN E [facility] Apr 05, 2024 03:30 PM AMBULATORY - PSYCHIATRY [facility] Lab Results: +/- 30 days of the encounter This section includes the Chemistry and Hematology Lab Results on record with [place] for the patient. Radiology Reports and Pathology Reports are provided separately, in subsequent sections. Lab Results This section contains the Chemistry/Hematology Results that were resulted 30 days before or 30 daysafter the date of the Encounter. Date/Time Source Result Type Result - Unit Interpretation Reference Range Comment Sep 09, 2023 07:34 AM [facility] LIPID PANEL FASTING Specimen Type: SERUM No comment entered. Ordering Provider: VALERIE GARCIA Report Released Date/Time: Oct 06, 2022 01:18 PM Reporting Lab: [address] [address] Performing Lab: [address] [address] CHOLESTEROL 187 mg/dL TRIGLYCERIDE 138 mg/dL 0-150 LDL calculated 121 mg/dL 0-129 CHOL/HDL 4.9 HDL CHOLESTEROL 38 mg/dL L 40-60 Sep 09, 2023 07:34 AM [facility] HEMOGLOBIN A1C PANEL Specimen Type: BLOOD [...] Oct 06, 2022 01:18 PM Reporting Lab: [facility] [address] [facility] [address] Performing Lab: [address] [address] HEMOGLOBIN A1C 5.2 4.0-5.6 Sep 09, 2023 07:34 AM [facility] LIVER FUNCTION Specimen Type: SERUM No comment entered. Ordering Provider: VALERIE GARCIA Report Released Date/Time: Oct 06, 2022 01:18 PM Reporting Lab: [facility] [address] [facility] [address] Performing Lab: [address] [address] PROTEIN,TOTAL 7.2 g/dL 6.0-8.3 ALBUMIN 4.2 g/dL 3.5-5.0 ALKALINE PHOSPHATASE 70 U/L 40-150 AST 17 U/L 5-34 ALT 19 U/L BILIRUBIN, TOTAL 0.9 mg/dL 0.2-1.2 Sep 09, 2023 07:34 AM [facility] BASIC METABOLIC PANEL (fasting) Specimen Type: SERUM No comment entered. Ordering Provider: VALERIE GARCIA Report Released Date/Time: Oct 06, 2022 01:18 PM Reporting Lab: [address] [address] Performing Lab: [address] [address] UREA NITROGEN 13 mg/dL 7-25 GLUCOSE 101 mg/dL H 65-100 SODIUM 137 mmol/L 135-145 POTASSIUM 4.6 mmol/L 3.5-5.0 CHLORIDE 105 mmol/L 100-110 CO2 23 meq/L 20-30 CREATININE, Serum 0.86 mg/dL 0.50-1.40 eGFR(CKD-EPI 2020) >90 mL/min >60 Sep 09, 2023 07:34 AM [facility] PSA Specimen Type: SERUM No comment entered. Ordering Provider: VALERIE GARCIA Report Released Date/Time: Oct 06, 2022 01:18 PM Reporting Lab: [facility] [place] [facility] [address] [facility] [address] Performing Lab: [facility] [place] [facility] [address] [facility] [address] PSA 1.33 ng/mL 0.00-4.00 Sep 09, 2023 07:34 AM [facility] TSH Specimen Type: SERUM No comment entered. Ordering Provider: VALERIE GARCIA Report Released Date/Time: Oct 06, 2022 01:18 PM Reporting Lab: [facility] [place] [facility] [address] [facility] [address] Performing Lab: [facility] [address] [facility] [address] TSH 1.02 u[IU]/mL 0.35-5.00 Sep 09, 2023 07:34 AM [facility] MICROALBUMIN CREATININE RATIO PANEL Specimen Type: URINE No comment entered. Ordering Provider: VALERIE GARCIA Report Released Date/Time: Oct 06, 2022 01:19 PM Reporting Lab: [facility] [place] [facility] [address] [facility] [address] Performing Lab: [place] [facility] [place] [facility] [address] [facility] [address] MICROALBUMIN/C REATININE RATIO 11.5 mg/g 0-29.9 MICROALBUMIN,Q UANTITATIVE 1.1 mg/dL RR UNAVAIL CREATININE URINE 95.90 mg/dL Sep 09, 2023 07:34 AM [facility] CBC AND DIFF (AUTO) Specimen Type: BLOOD No comment entered. Ordering Provider: VALERIE GARCIA Report Released Date/Time: Oct 06, 2022 01:18 PM Reporting Lab: [place] [facility] [place] [facility] [address] [facility] [address] Performing Lab: [facility] [address] [address] WBC 5.88 10*3/uL 4.50-11.00 RBC 5.14 10*6/uL [...] 0.0 0.0-0.0 NRBC, ABS 0.00 10*3/uL 0.00-0.00 Social History: Smoking Status (Most current) and Tobacco Use (All prior to encounter date) This section includes the most current, and the historical, smoking and tobacco- related health factors from the [place] facility where the Encounter took place. Current Smoking Status This section includes the most current smoking, or tobacco-related health factor, from the [place] facility where the Encounter took place. Date/Time Current Smoking Status Comment Facil ity Jan 13, 2023 03:30 PM MT-TOBACCO QUIT 15 YRS OR MORE [place] Tobacco Use History This section includes a history of the smoking, or tobacco-related health factors, that were collected on or before the date of the Encounter. The data comes from the [place] facility where the Encounter took place. Date/Time Smoking Status/Tobacco Use Comment F acility Jan 13, 2023 03:30 PM MT-TOBACCO QUIT 15 YRS OR MORE [place] Feb 03, 2022 09:30 AM MT-TOBACCO FORMER USER [place] Feb 03, 2022 09:30 AM VA-TOBACCO QUIT 15 YRS OR MORE [place] Jan 28, 2021 09:00 AM VA-TOBACCO FORMER USER [place] Jan 28, 2021 09:00 AM VA-TOBACCO QUIT 15 YRS OR MORE [place] Feb 19, 2020 01:00 PM VA-TOBACCO FORMER USER [place] Feb 19, 2020 01:00 PM VA-TOBACCO QUIT 15 YRS OR MORE [place] May 02, 2018 09:49 AM VA-TOBACCO FORMER USER [place] May 02, 2018 09:49 AM VA-TOBACCO QUIT 15 YRS OR MORE [place] Jun 03, 2017 09:23 AM QUIT TOBACCO USE 1-7 YEARS AGO [place] June 30, 2016 09:51 AM QUIT TOBACCO USE > 7 YEARS AGO 24 yrs ago [place] Nov 07, 2015 01:29 PM QUIT TOBACCO USE 1-7 YEARS AGO [place] Sep 30, 2015 01:53 PM QUIT TOBACCO USE 1-7 YEARS AGO [place] Sep 13, 2014 02:46 PM QUIT TOBACCO USE > 7 YEARS AGO [place] Advance Directives: All historical and current Section Date Range: From patient's date of to the date document was created. This section includes ALL of a patient's completed or amended [place] Advance and Rescinded Directives. The entries below indicate that a directive exists for the patient, but an actual copy is not included with this document. The data comes from all [facility]. Date Advance Directives Provider Source Jun 25, 2023 ADVANCE DIRECTIVE DISCUSSION AMAYA FRANZ [place] [facility] [place] [facility] Aug 06, 2017 ADVANCE DIRECTIVE [facility] [place] Radiology Reports: +/- 30 days of the [...] the Encounter. The data comes from all [place] treatment facilities. Date/Time Radiology Report Provider Source Sep 17, 2023 02:56 PM SPINE CERVICAL, 4 OR 5 VIEWS: EMA ESTRADA [id number] -[id number] M Exm Date: SEP 17, 2023@14:56 Req Phys: JOSE,LAZARO Pat Loc: C[facility]/SO/PACT 9 (Req'g Loc) Img Loc: [facility]/BUILDING 1 Service: Unknown [facility] , (Case [id number] COMPLETE) SPINE CERVICAL, 4 OR 5 VIEWS (RAD Detailed) CPT:70975 Reason for Study: neck pain Clinical History: Report Status: Verified Date Reported: SEP 17, 2023 Date Verified: SEP 17, 2023 Training Program Developer E-Sig:/ES/MAVERICK SANCHEZ JR Report: Study: AP, lateral [...] Primary Interpreting Staff: MAVERICK SANCHEZ JR, Radiologist (Training Program Developer) /MAVERICK DU JR [facility] Encounter Notes: All associated encounter notes This section contains the clinical notes associated to the Encounter. Date/Time Encounter Note(s) Provider Source Oct 05, 2023 08:19 AM PHYSICIAN NOTE: LOCAL TITLE: MD NOTE STANDARD TITLE: PHYSICIAN NOTE DATE OF NOTE: OCT 05, 2023@08:19 ENTRY DATE: OCT 05, 2023@08:19:20 AUTHOR: LAZARO GARCIA EXP COSIGNER: URGENCY: STATUS: COMPLETED SUBJECT: skin check REASON FOR VISIT/CHIEF COMPLAINT: Evaluation and management of acute problem(s) Dad with diagnosis of Skin check of back Patient also reports a self adjustment on his bupropion from 200 mg to 300 mg in the last 3 weeks. He is felt a significant change in his mood as it relates to his workplace. He has new prescriber is available to email directly so he wanted me to inform Dr. Patel of what he did so that he would feel better. Patient also relates a potential side effect of the medications that she is currently on. Patient was started on a beta-julian during her hospitalization and has since been on it. He is read about the effects on tiredness as well as depression and he would like to change the medication to something else to see if this would be helpful. This is not an unreasonable thing to do. PHYSICAL EXAMINATION: Temperature: 96.8 F [36.0 C] (10/05/2023 12:57) Pulse: 63 (10/05/2023 12:57) Respiration: 20 (09/14/2023 09:54) BP: 126/88 (10/05/2023 12:57) Pain: 0 (09/14/2023 09:54) Height: 74 in [188.0 cm] (09/14/2023 09:54) Weight: 214.2 lb [97.16 kg] (10/05/2023 12:57) Skin check with actinic keratotic and flat lesions lesions including one irregularly pigmented on the shoulder. A/P > Telederm for shoulder lesion, might need bx; no family history of melanoma. > MH - patient unable to let prescriber know of his change in medication (reports improved) > HTN - okay to stop betablocker and increase amlodipine; may ee to watch for palpitations. RTC 1 mo VVC with RN for BP check on two drug regimen Plan of care discussed with patient who articulates understanding. /brenda/ LAZARO GARCIA MD PHYSICIAN Signed: 10/05/2023 13:34 Receipt Acknowledged By: 10/05/2023 16:32 /brenda/ LEXI PATEL Psychiatric Mental Health Nurse Practitioner LAZARO GARCIA [place]
--- OUTSIDE RECORDS SUMMARY | 2024-06-06 17:56 | XMS_ITS | Encounter Summary ---
Author Name Department of [place] Organization [place] Address [address] [place] [id number] Care Team Providers Care Rotary Engraver Name Role Phone ARIANNE CHERY Primary Care [...] Name Patient's Relationship to Policy R[facility]vi [facility] ORGANESPERANZA [employer] Aug 29, 2017 [id number] [phone] Kathy ESTRADA [facility] ORGANESPERANZA COMMO [facility] Mar 01, 2014 [id number] [phone] Kathy ESTRADA SPOUSE MEDICARE (WNR) MEDICARE (M) PART A Sep 29, 2020 PART A [id number] [place] ESTRADA PATIENT MEDICARE (WNR) MEDICARE (M) PART A Sep 29, 2020 PART A [id number] [phone] [place] ESTRADA PATIENT Selected Encounter This section includes the information on record at [place] for the Encounter. Date/Time Encounter Type Encounter Description Reason Pro vider Source IHE Encounter Template Text not used by [place] Advance Directives: All historical and current Section Date Range: From patient's date of to the date document was created. This section includes ALL of a patient's completed or amended [place] Advance and Rescinded Directives. The entries below indicate that a directive exists for the patient, but an actual copy is not included with this document. The data comes from all [place] facilities. Date Advance Directives Provider Source Jun 25, 2023 ADVANCE DIRECTIVE DISCUSSION AMAYA FRANZ [place] [facility] Aug 06, 2017 ADVANCE DIRECTIVE ABDIRASHID [facility]
--- OUTSIDE RECORDS SUMMARY | 2024-06-06 17:56 | XMS_ITS ---
Author Name [facility] [place] [facility] [place] Address [address] [place] [address] Care Team Providers Care Graphic Coordinator Name Role Phone ARIANNE CHERY Primary Care [...] Relationship to Policy [facility] [employer] Aug 29, 2017 [id number] Kathy MURPHY [facility]GANIZ COMMO [facility] Mar 01, 2014 [id number] [phone] Kathy MURPHY SPOUSE MEDICARE (WNR) MEDICARE (M) PART A Sep 29, 2020 PART A [id number] [facility] Guanakito MURPHY PATIENT MEDICARE (WNR) MEDICARE (M) PART A Sep 29, 2020 PART A [id number] Guanakito MURPHY PATIENT Selected Encounter This section includes the information on record at [place] for the Encounter. Date/Time Encounter Type Encounter Description Reason Provider Source Jun 22, 2023 01:00 PM GROUP PSYCHOTHERAPY [facility] ICD-10-CM Z72.89 Other problems related to lifestyle KALIE AGOSTO Kathy Encounter Template Text not used by [place] Assessments - Encounter Diagnoses This section includes the primary and secondary diagnoses documented for the Encounter. Date/Time Primary/Secondary Diagnosis Diagnosis Name Provider Source Jun 22, 2023 03:36 PM PRIMARY Other problems related to lifestyle KALIE AGOSTO [place] [facility] [place] [facility] Jun 22, 2023 03:36 PM SECONDARY Major depressive disorder, single episode, unspecified KALIE AGOSTO [place] [facility] [place] [facility] Plan of Treatment: Future Appointments (+ 6 months) and Future Tests (+/- 45 days) The Plan of Treatment section includes future care activities for the patient from [facility] [place] [facility] This section includes future appointments and future orders which are active, pending or scheduled. Future Appointments This section includes appointments that were scheduled to occur 6 months from the date of the Encounter, up to a maximum of 20 appointments. The data comes from all [place] treatment facilities. Appointment Date/Time Appointment Type Appointme nt Facility Name July 05, 2023 02:30 PM AMBULATORY - PS[facility]IATRY [facility] [place] [facility] July 07, 2023 09:15 AM AMBULATORY [facility] MEDICINE [facility] [place] [facility] July 12, 2023 01:00 PM AMBULATORY - PS[facility]CHIATRY [facility] [place] [facility] July 16, 2023 03:00 PM AMBULATORY - PS[facility]CHIATRY [facility] [place] [facility] July 23, 2023 03:30 PM AMBULATORY - PSYCHIATRY [facility] [place] [facility] Aug 13, 2023 03:30 PM AMBULATORY - PS[facility]CHIATRY [facility] [place] [facility] Aug 16, 2023 11:00 AM AMBULATORY - MEDICINE [facility] [place] [facility] Aug 27, 2023 11:30 AM AMBULATORY - MEDICINE [facility] [place] [facility] Sep 14, 2023 09:30 AM AMBULATORY - MEDICINE [facility] [place] [facility] Sep 17, 2023 03:30 PM AMBULATORY - PSYCHIATRY [facility] [place] [facility] Oct 05, 2023 01:00 PM AMBULATORY - MEDICINE [facility] [place] [facility] Oct 14, 2023 02:00 PM AMBULATORY - NONE [facility] [place] [facility] Nov 12, 2023 03:30 PM AMBULATORY - PSYCHIATRY [facility] [place] [facility] Nov 25, 2023 07:30 AM AMBULATORY - REHAB MEDICIN E [facility] [place] [facility] Nov 25, 2023 08:30 AM AMBULATORY - PSYCHIATRY [facility] [place] [facility] Nov 25, 2023 11:00 AM AMBULATORY - MEDICINE [facility] Dec 03, 2023 07:30 AM AMBULATORY - REHAB MEDICIN E [facility] [place] [facility] Dec 09, 2023 08:15 AM AMBULATORY - REHAB MEDICIN E [facility] [place] [facility] Dec 15, 2023 01:00 PM AMBULATORY - REHAB MEDICIN E [facility] [place] [facility] Active, Pending, and Scheduled Orders This section includes a listing of several types of active, pending, and scheduled orders, including clinic medications orders, diagnostic test orders, procedure orders and consult orders; where the start date of the order is 45 days before the date of the Encounter or 45 days after the date of theEncounter. The data comes from all [place] treatment facilities. Test Date/Time Test Type Test Details Facility Name May 14, 2023 12:00 AM Laboratory - Chemi stry Order BASIC METABOLIC PANEL (fasting) BLOOD (SST-SERUM) [facility] May 14, 2023 12:00 AM Laboratory - Chemi stry Order LIPID PANEL FASTING BLOOD (SST-SERUM) [facility] May 14, 2023 12:00 AM Laboratory - Chemi stry Order LIVER FUNCTION BLOOD (SST-SERUM) [facility] May 14, 2023 12:00 AM Laboratory - Chemi stry Order CBC AND DIFF (AUTO) BLOOD (LAV-BLOOD) [facility] May 14, 2023 12:00 AM Laboratory - Chemi stry Order HEMOGLOBIN A1C PANEL BLOOD (LAV-BLOOD) [facility] May 14, 2023 12:00 AM Laboratory - Chemi stry Order TSH BLOOD (SST-SERUM) [facility] Lab Results: +/- 30 days of the encounter This section includes the Chemistry and Hematology Lab Results on record with [facility] for the patient. Radiology Reports and Pathology Reports are provided separately, in subsequent sections. Lab Results This section contains the Chemistry/Hematology Results that were resulted 30 days before or 30 daysafter the date of the Encounter. Date/Time Source Result Type Result - Unit Interpretation Reference Range Comment Jun 24, 2023 06:38 AM [facility] FOLATE (WROX) Specimen Type: SERUM No comment entered. Ordering Provider: REAGAN MÁRQUEZ Report Released Date/Time: Jun 23, 2023 11:15 AM Reporting Lab[facility] [place] [facility] [address] [address] Performing Lab: [facility] [address] [address] FOLATE (WROX) 17.13 ng/mL >5.2 Jun 24, 2023 06:38 AM [facility] HEMOGLOBIN A1C PANEL Specimen Type: BLOOD Comment: Values obtained from A1C measurements can vary. For atypical A1C assays, a reported value of 7.0 could actually be between 6.72 and 7.28 if measured by a reference method. A reported value of 9.0 could actually be between 8.73 and 9.27. Ref: http://www.ng sp.org/CAPdat a.asp Ordering Provider: REAGAN MÁRQUEZ Report Released Date/Time: Jun 23, 2023 11:15 AM Reporting Lab: [facility] [address] [address] Performing Lab: [facility] [address] HEMOGLOBIN A1C 5.3 4.0-5.6 Jun 24, 2023 06:38 AM [facility] TSH Specimen Type: SERUM No comment entered. Ordering Provider: REAGAN MÁRQUEZ Report Released Date/Time: Jun 23, 2023 11:15 AM Reporting Lab: [facility] [address] [address] Performing Lab: [facility] [address] [address] TSH 2.11 u[IU]/mL 0.35-5.00 Jun 24, 2023 06:38 AM [facility] VITAMIN B12 Specimen Type: SERUM No comment entered. Ordering Provider: REAGAN MÁRQUEZ Report Released Date/Time: Jun 23, 2023 11:15 AM Reporting Lab: [facility] [address] [address] Performing Lab: [address] [address] VITAMIN B12 647 pg/mL 200-900 Jun 24, 2023 06:38 AM [facility] LIPID PANEL FASTING Specimen Type: SERUM No comment entered. Ordering Provider: REAGAN MÁRQUEZ Report Released Date/Time: Jun 23, 2023 11:15 AM Reporting Lab: [address] [address] Performing Lab: [address] [address] CHOLESTEROL 181 mg/dL TRIGLYCERIDE 180 mg/dL H 0-150 LDL calculated 106 mg/dL 0-129 CHOL/HDL 4.6 HDL CHOLESTEROL 39 mg/dL L 40-60 Jun 22, 2023 06:30 AM [facility] LIVER FUNCTION Specimen Type: SERUM No comment entered. Ordering Provider: DONA KIM Report Released Date/Time: Jun 21, 2023 06:07 PM Reporting Lab: [address] [address] Performing Lab: [address] [address] PROTEIN,TOTAL 7.3 g/dL 6.0-8.3 ALBUMIN 4.1 g/dL 3.5-5.0 ALKALINE PHOSPHATASE 80 U/L 40-150 AST 23 U/L 5-34 ALT 39 U/L BILIRUBIN, TOTAL 0.9 mg/dL 0.2-1.2 Jun 21, 2023 03:49 PM [facility] COVID-19 MONITOR PANEL (CEPHEID) Specimen Type: NASOPHARYNX Comment: This test is authorized for emergency use only. False negative results may occur if virus is present at levels below the analytical limit of detection.Neg ative results do not preclude SARS-CoV-2 infection and should not be used as the sole basis for treatment or other patient management decisions.Cep heid FLUVID: HCPs: https://www.[facility].gov/media/ 837925/downlo ad. Patients: https://www. [place].gov/media/ 459723/downlo ad Ordering Provider: DIEGO MEJIAS Report Released Date/Time: Jun 21, 2023 03:18 PM Reporting Lab: [facility] [address] [address] Performing Lab: [address] [address] COVID-19 JARED (CEPHEID) NEGATIVE Negative Jun 21, 2023 03:29 PM [facility] ETHANOL Specimen Type: PLASMA No comment entered. Ordering Provider: DIEGO MEJIAS Report Released Date/Time: Jun 21, 2023 03:18 PM Reporting Lab: [facility] [address] [address] Performing Lab: [facility] [address] ETHANOL <10 mg/dL Jun 21, 2023 03:29 PM [facility] LIVER FUNCTION Specimen Type: SERUM No comment entered. Ordering Provider: DIEGO MEJIAS Report Released Date/Time: Jun 21, 2023 03:18 PM Reporting Lab: [facility] [address] Performing Lab: [facility] [address] PROTEIN,TOTAL 8.1 g/dL 6.0-8.3 ALBUMIN 4.7 g/dL 3.5-5.0 ALKALINE PHOSPHATASE 83 U/L 40-150 AST 31 U/L 5-34 ALT 47 U/L BILIRUBIN, TOTAL 0.9 mg/dL 0.2-1.2 Jun 21, 2023 03:29 PM [facility] BASIC METABOLIC PANEL (non-fasting) Specimen Type: SERUM No comment entered. Ordering Provider: DIEGO MEJIAS Report Released Date/Time: Jun 21, 2023 03:18 PM Reporting Lab: [address] [address] Performing Lab: [address] [address] UREA NITROGEN 20 mg/dL 7-25 GLUCOSE 100 mg/dL 65-100 SODIUM 139 mmol/L 135-145 POTASSIUM 4.2 mmol/L 3.5-5.0 CHLORIDE 101 mmol/L 100-110 CO2 26 meq/L 20-30 CREATININE, Serum 0.85 mg/dL 0.50-1.40 eGFR(CKD-EPI 2020) >90 mL/min >60 Jun 21, 2023 03:29 PM [facility] DRUGS OF ABUSE Specimen Type: URINE [...] Jun 21, 2023 03:18 PM Reporting Lab: [address] [address] Performing Lab: [address] [address] AMPHETAMINES SCREEN NONE-DETECTED None-Detec josefina, Cutoff = [...] 3-1.02 0 Jun 21, 2023 03:29 PM [facility] CBC AND DIFF (AUTO) Specimen Type: BLOOD No comment entered. Ordering Provider: DIEGO MEJIAS Report Released Date/Time: Jun 21, 2023 03:18 PM Reporting Lab: [facility] [address] [address] Performing Lab: [address] [address] WBC 8.46 10*3/uL 4.50-11.00 RBC 5.43 10*6/uL 4.23-5.66 HGB 16.3 g/dL 12.8-17 HCT 47.5 39.2-50.4 MCV 87.5 fL 82-99 MCHC 34.3 g/dL 30.8-35.1 PLT 323 10*3/uL 140-360 RDW-CV 12.8 12.0-16.0 Charles, Abs 0.80 10*3/uL 0.30-1.10 MCH 30.0 pg 26.2-32.6 Neut % 63.0 43.7-75.8 Lymph % 25.2 14.0-42.3 Charles % 9.5 5.1-13.7 Eos % 1.1 0.4-6.8 [...] Height Weight Body Mass Index Source Jun 22, 2023 10:00 PM 98.4 66 131/87 16 96 [place] [facility] [place] [facility] Jun 22, 2023 06:16 PM 142/87 16 94 [place] [facility] [place] [facility] Jun 22, 2023 04:24 PM 98.1 66 144/91 16 95 [place] [facility] [place] [facility] Jun 22, 2023 02:17 PM 97.3 66 146/84 18 97 [place] [facility] [place] [facility] Jun 22, 2023 12:08 PM 97.3 67 144/94 16 96 [place] [facility] [facility] Advance Directives: All historical and current Section Date Range: From patient's date of to the date document was created. This section includes ALL of a patient's completed or amended [place] Advance and Rescinded Directives. The entries below indicate that a directive exists for the patient, but an actual copy is not included with this document. The data comes from all [place] facilities. Date Advance Directives Provider Source Jun 25, 2023 ADVANCE DIRECTIVE DISCUSSION AMAYA FRANZ [place] [facility] [place] [facility] Aug 06, 2017 ADVANCE DIRECTIVE ABDIRASHID [facility] Encounter Notes: All associated encounter notes This section contains the clinical notes associated to the Encounter. Date/Time Encounter Note(s) Provider Source Jun 22, 2023 03:18 PM PSYCHIATRY GROUP Corona CARL NOTE: LOCAL TITLE: PSYCHOLOGY GROUP NOTE STANDARD TITLE: PSYCHIATRY GROUP COUNSELING NOTE DATE OF NOTE: JUN 22, 2023@15:18 ENTRY DATE: JUN 22, 2023@15:18:46 AUTHOR: KALIE AGOSTO COSIGNER: URGENCY: STATUS: COMPLETED Group Psychotherapy TITLE: Acceptance and Commitment Therapy (ACT), Verbal Aikido GROUP GUT PULLER: Kalie Agosto PsyD with RAPHAEL Cheatham student GROUP MEMBERS: 5 Veterans TIME: 50 minutes LEARNING FORMAT: Group Psychotherapy, including psychoeducation and experiential exercises The session opened with a brief mindfulness practice. Some information about CBT and ACT was provided, including their subtle differences, and the fact that ACT is evidence-based for depression. The futility of control of our thoughts and emotions was demonstrated with the blue bear exercise. Next, a popular ACT metaphor involving the rabbit (under appetitive or aversive control) was shared. Verbal Aikido was conducted to demonstrate swinging around and steering back to a valued direction. Aikido requires being in the present moment, recognizing struggle, and using resistance to an advantage; staying on the path originally intended. Veterans shared their observations of the exercise. The session ended with the View from a Bridge metaphor. Risk/safety: Based on the current session there is no evidence of the [place] being in imminent danger to self or others. No substance use was reported nor interpreted. Group Goal: To demonstrate several ACT concepts, including present moment awareness, futility of control, and willingness. To share a present moment exercise which helps us re-orient to our values. Plan: will continue to attend groups daily for the 's duration on the unit Participation: Mr. Murphy shared that he realizes he needs to keep working in order to keep busy, as that fits him best. Idle time is the Food[employer]'s playground he stated. Diagnoses: Primary Admits alcohol use (SCT [id number]) - Other problems related to lifestyle (ICD-10-CM Z72.89) Secondary Major depressive disorder (SCT 382992251) - Major depressive disorder, single episode, unspecified (ICD-10-CM F32.9) Procedures: Group Psychotherapy Related to: Service Connected Condition /es/ KALIE AGOSTO PSY.D. STAFF PSYCHOLOGIST Signed: 06/22/2023 15:37 K[facility]IE [facility]O [facility]
--- OUTSIDE RECORDS SUMMARY | 2024-06-06 17:56 | XMS_ITS ---
Author Name [facility] [place] [facility] [place] Address [address] [place] [id number] Care Team Providers Care Skin Installer Name Role Phone ARIANNE CHERY Primary Care [...] Rizvi's Name Patient's Relationship to Policy Rizvi [facility]GAN[facility] [employer] [place] Aug 29, 2017 [id number] Kathy ESTRADA [facility] CE ORGANIZ COMMO [facility] Mar 01, 2014 [id number] [phone] Kathy ESTRADA SPOUSE MEDICARE (WNR) MEDICARE (M) PART A Sep 29, 2020 PART A [id number] [facility] [place] ESTRADA PATIENT MEDICARE (WNR) MEDICARE (M) PART A Sep 29, 2020 PART A [id number] [place] ESTRADA PATIENT Selected Encounter This section includes the information on [place] at [place] for the Encounter. Date/Time Encounter Type Encounter Description Reason Provider Source Jun 21, 2023 03:02 PM OFFICE O/P EST HI 40 MIN GENERAL INTERNAL MEDICINE ICD-10-CM F10.94 Alcohol use, unspecified with alcohol-induced mood disorder JG KIM Kathy Encounter Template Text not used by [place] Assessments - Encounter Diagnoses This section includes the primary and secondary diagnoses documented for the Encounter. Date/Time Primary/Secondary Diagnosis Diagnosis Name Provider Source Jun 21, 2023 04:39 PM PRIMARY Alcohol use, unspecified with alcohol-induced mood disorder JG KIM [place] [facility] [place] [facility] Jun 21, 2023 04:39 PM SECONDARY Essential (primary) hypertension JG KIM [place] [facility] [place] [facility] Jun 21, 2023 04:39 PM SECONDARY Major depressive disorder, single episode, unspecified [facility] [place] [facility] Plan of Treatment: Future Appointments (+ 6 months) and Future Tests (+/- 45 days) The Plan of Treatment section includes future care activities for the patient from [facility] [place] [facility] This section includes future appointments and future orders which are active, pending or scheduled. Future Appointments This section includes appointments that were scheduled to occur 6 months from the date of the Encounter, up to a maximum of 20 appointments. The data comes from all [place] treatment facilities. Appointment Date/Time Appointment Type Appointme nt Facility Name July 05, 2023 02:30 PM AMBULATORY - [place]IATRY [place] [facility] [place] [facility] July 07, 2023 09:15 AM AMBULATORY [place]ICINE [place] [facility] [place] [facility] July 12, 2023 01:00 PM AM[place]UL[place] [place]RY [place] [facility] [place] [facility] July 16, 2023 03:00 PM AMBULATORY - PS[place]CHIATRY [place] [facility] [place] [facility] July 23, 2023 03:30 PM AMBULATORY - PS[place]CHIATRY [place] [facility] [place] [facility] Aug 13, 2023 03:30 PM AMBULATORY [place] PS[place]CHIATRY [place] [facility] [place] [facility] Aug 16, 2023 11:00 AM AMBULATORY [place]ICINE [place] [facility] [place] [facility] Aug 27, 2023 11:30 AM AM[place]ULATORY [place]IC[place] [facility] [place] [facility] Sep 14, 2023 09:30 AM AMBULATORY [place] MEDICINE [place] [facility] [place] [facility] Sep 17, 2023 03:30 PM AMBULATORY - PS[place]CHIATRY [place] [facility] [place] [facility] Oct 05, 2023 01:00 PM AMBULATORY - MEDICINE [place] [facility] [place] [facility] Oct 14, 2023 02:00 PM AMBULATORY - NONE [place] [facility] [place] [facility] Nov 12, 2023 03:30 PM AMBULATORY - PSYCHIATRY [place] [facility] [place] [facility] Nov 25, 2023 07:30 AM AMBULATORY - REHAB MEDICIN E [place] [facility] [place] [facility] Nov 25, 2023 08:30 AM AMBULATORY - PSYCHIATRY [place] [facility] [place] [facility] Nov 25, 2023 11:00 AM AMBULATORY - MEDICINE [facility] Dec 03, 2023 07:30 AM AMBULATORY - REHAB MEDICIN E [place] [facility] [place] [facility] Dec 09, 2023 08:15 AM AMBULATORY - REHAB MEDICIN E [place] [facility] [place] [facility] Dec 15, 2023 01:00 PM AMBULATORY - REHAB MEDICIN E [place] [facility] [place] [facility] Active, Pending, and Scheduled Orders This section includes a listing of several types of active, pending, and scheduled orders, including clinic medications orders, diagnostic test orders, procedure orders and consult orders; where the start date of the order is 45 days before the date of the Encounter or 45 days after the date of theEncounter. The data comes from all [place] treatment facilities. Test Date/Time Test Type Test Details Facility Name May 14, 2023 12:00 AM Laboratory - Chemi stry Order LIPID PANEL FASTING BLOOD (SST-SERUM) [facility] May 14, 2023 12:00 AM Laboratory - Chemi stry Order BASIC METABOLIC PANEL (fasting) BLOOD (SST-SERUM) [facility] May 14, 2023 12:00 AM Laboratory - Chemi stry Order LIVER FUNCTION BLOOD (SST-SERUM) [facility] May 14, 2023 12:00 AM Laboratory - Chemi stry Order CBC AND DIFF (AUTO) BLOOD (LAV-BLOOD) [facility] May 14, 2023 12:00 AM Laboratory - Chemi stry Order TSH BLOOD (SST-SERUM) [facility] May 14, 2023 12:00 AM Laboratory - Chemi stry Order HEMOGLOBIN A1C PANEL BLOOD (LAV-BLOOD) [facility] Lab Results: +/- 30 days of the encounter This section includes the Chemistry and Hematology Lab Results on record with [place] for the patient. Radiology Reports and Pathology Reports are provided separately, in subsequent sections. Lab Results This section contains the Chemistry/Hematology Results that were resulted 30 days before or 30 daysafter the date of the Encounter. Date/Time Source Result Type Result - Unit Interpretation Reference Range Comment Jun 24, 2023 06:38 AM [facility] FOLATE (WROX) Specimen Type: SERUM No comment entered. Ordering Provider: REAGAN MÁRQUEZ Report Released Date/Time: Jun 23, 2023 11:15 AM Reporting Lab: [facility] [address] [facility] [address] Performing Lab: [facility] [address] [facility] [address] FOLATE (WROX) 17.13 ng/mL >5.2 Jun 24, 2023 06:38 AM [facility] HEMOGLOBIN A1C PANEL Specimen Type: [...] Jun 23, 2023 11:15 AM Reporting Lab: [facility] [address] [facility] [address] Performing Lab: [address] [address] HEMOGLOBIN A1C 5.3 4.0-5.6 Jun 24, 2023 06:38 AM [facility] TSH Specimen Type: SERUM No comment entered. Ordering Provider: REAGAN MÁRQUEZ Report Released Date/Time: Jun 23, 2023 11:15 AM Reporting Lab: [facility] [address] [facility] [address] Performing Lab: [facility] [address] [facility] [address] TSH 2.11 u[IU]/mL 0.35-5.00 Jun 24, 2023 06:38 AM [facility] VITAMIN B12 Specimen Type: SERUM No comment entered. Ordering Provider: REAGAN MÁRQUEZ Report Released Date/Time: Jun 23, 2023 11:15 AM Reporting Lab: [facility]ITALN [facility] [address] [facility] [address] Performing Lab: [facility] [address] VITAMIN B12 647 pg/mL 200-900 Jun 24, 2023 06:38 AM [facility] LIPID PANEL FASTING Specimen Type: SERUM No comment entered. Ordering Provider: REAGAN MÁRQUEZ Report Released Date/Time: Jun 23, 2023 11:15 AM Reporting Lab: [facility] [address] [facility] [address] Performing Lab: [facility] [address] CHOLESTEROL 181 mg/dL TRIGLYCERIDE 180 mg/dL H 0-150 LDL calculated 106 mg/dL 0-129 CHOL/HDL 4.6 HDL CHOLESTEROL 39 mg/dL L 40-60 Jun 22, 2023 06:30 AM [facility] LIVER FUNCTION Specimen Type: SERUM No comment entered. Ordering Provider: JG KIM Report Released Date/Time: Jun 21, 2023 06:07 PM Reporting Lab: [facility]ITALRPRATTVIL[facility]ITALN [facility]ENTERUSETS [facility] [address] [facility] [address] Performing Lab: [facility]USE[address] [address] PROTEIN,TOTAL 7.3 g/dL 6.0-8.3 ALBUMIN 4.1 g/dL 3.5-5.0 ALKALINE PHOSPHATASE 80 U/L 40-150 AST 23 U/L 5-34 ALT 39 U/L BILIRUBIN, TOTAL 0.9 mg/dL 0.2-1.2 Jun 21, 2023 03:49 PM [facility] COVID-19 MONITOR PANEL (CEPHEID) Specimen Type: NASOPHARYNX Comment: This test is authorized for emergency use only. False negative results may occur if virus is present at levels below the analytical limit of detection.Neg ative results do not preclude SARS-CoV-2 infection and should not be used as the sole basis for treatment or other patient management decisions.Cep heid FLUVID: HCPs: https://www. [place].gov/media/ 321276/downlo ad. Patients: https://www. [place].gov/media/ 252032/downlo ad Ordering Provider: DIEGO MEJIAS Report Released Date/Time: Jun 21, 2023 03:18 PM Reporting Lab: [address] [address] Performing Lab: [address] [address] COVID-19 JARED (CEPHEID) NEGATIVE Negative Jun 21, 2023 03:29 PM [facility] ETHANOL Specimen Type: PLASMA No comment entered. Ordering Provider: DIEGO MEJIAS Report Released Date/Time: Jun 21, 2023 03:18 PM Reporting Lab: [facility] [address] [facility] [address] Performing Lab: [address] [address] ETHANOL <10 mg/dL Jun 21, 2023 03:29 PM [facility] LIVER FUNCTION Specimen Type: SERUM No comment entered. Ordering Provider: DIEGO MEJIAS Report Released Date/Time: Jun 21, 2023 03:18 PM Reporting Lab: [address] [address] Performing Lab: [address] [address] PROTEIN,TOTAL 8.1 g/dL 6.0-8.3 ALBUMIN 4.7 g/dL 3.5-5.0 ALKALINE PHOSPHATASE 83 U/L 40-150 AST 31 U/L 5-34 ALT 47 U/L BILIRUBIN, TOTAL 0.9 mg/dL 0.2-1.2 Jun 21, 2023 03:29 PM [facility] BASIC METABOLIC PANEL (non-fasting) Specimen Type: SERUM No comment entered. Ordering Provider: DIEGO MEJIAS Report Released Date/Time: Jun 21, 2023 03:18 PM Reporting Lab: [address] [address] Performing Lab: [address] [address] UREA NITROGEN 20 mg/dL 7-25 GLUCOSE 100 mg/dL 65-100 SODIUM 139 mmol/L 135-145 POTASSIUM 4.2 mmol/L 3.5-5.0 CHLORIDE 101 mmol/L 100-110 CO2 26 meq/L 20-30 CREATININE, Serum 0.85 mg/dL 0.50-1.40 eGFR(CKD-EPI 2020) >90 mL/min >60 Jun 21, 2023 03:29 PM [facility] DRUGS OF ABUSE Specimen Type: URINE [...] Jun 21, 2023 03:18 PM Reporting Lab: [address] [address] Performing Lab: [address] [address] AMPHETAMINES SCREEN NONE-DETECTED None-Detec josefina, Cutoff = [...] 3-1.02 0 Jun 21, 2023 03:29 PM [facility] CBC AND DIFF (AUTO) Specimen Type: BLOOD No comment entered. Ordering Provider: DIEGO MEJIAS Report Released Date/Time: Jun 21, 2023 03:18 PM Reporting Lab: [facility] [address] [facility] [address] Performing Lab: [address] [address] WBC 8.46 10*3/uL 4.50-11.00 RBC 5.43 10*6/uL 4.23-5.66 HGB 16.3 g/dL 12.8-17 HCT 47.5 39.2-50.4 MCV 87.5 fL 82-99 MCHC 34.3 g/dL 30.8-35.1 PLT 323 10*3/uL 140-360 RDW-CV 12.8 12.0-16.0 Rusk, Abs 0.80 10*3/uL 0.30-1.10 MCH 30.0 pg 26.2-32.6 Neut % 63.0 43.7-75.8 Lymph % 25.2 14.0-42.3 Rusk % 9.5 5.1-13.7 Eos % 1.1 0.4-6.8 [...] Height Weight Body Mass Index Source Jun 21, 2023 10:40 PM 97.9 80 143/77 15 95 [place] [facility] [place] [facility] Jun 21, 2023 08:40 PM 97.9 68 146/95 16 98 [place] [facility] [facility] Jun 21, 2023 07:51 PM 0 [place] [facility] [place] [facility] Jun 21, 2023 06:39 PM 97.9 71 138/93 17 97 [place] [facility] [facility] Jun 21, 2023 03:12 PM 98 69 167/112 16 97 4 225.8 29 [place] [facility] [facility] Advance Directives: All historical and current Section Date Range: From patient's date of to the date document was created. This section includes ALL of a patient's completed or amended [place] Advance and Rescinded Directives. The entries below indicate that a directive exists for the patient, but an actual copy is not included with this document. The data comes from all [place] facilities. Date Advance Directives Provider Source Jun 25, 2023 ADVANCE DIRECTIVE DISCUSSION AMAYA FRANZ [place] [facility] [facility] Aug 06, 2017 ADVANCE DIRECTIVE ABDIRASHID [facility] Encounter Notes: All associated encounter notes This section contains the clinical notes associated to the Encounter. Date/Time Encounter Note(s) Provider Source Jun 21, 2023 04:13 PM PHYSICIAN NOTE: LOCAL TITLE: NOTE STANDARD TITLE: PHYSICIAN NOTE DATE OF NOTE: JUN 21, 2023@16:13 ENTRY DATE: JUN 21, 2023@16:13:49 AUTHOR: JG KIM EXP COSIGNER: URGENCY: STATUS: COMPLETED NOTE Has ADDENDA 98 F [36.7 C] (06/21/2023 15:12) 69 (06/21/2023 15:12)16 (06/21/2023 15:12) 167/112 (06/21/2023 15:12) 225.8 lb [102.42 kg] (06/21/2023 15:12) BMI: 29.1 Allergies: Patient has answered NKA Active Outpatient Medications (including Supplies): Active Outpatient Medications Status 1) AMLODIPINE BESYLATE 5MG TAB TAKE ONE TABLET BY MOUTH ACTIVE ONCE DAILY FOR BLOOD PRESSURE, DO NOT TAKE WITH GRAPEFRUIT JUICE 2) APIXABAN 5MG TAB TAKE ONE TABLET BY MOUTH EVERY 12 ACTIVE HOURS FOR PREVENTION OF BLOOD CLOTS 3) BUPROPION HCL 200MG 12HR SA TAB TAKE ONE TABLET BY ACTIVE MOUTH ONCE DAILY FOR DEPRESSION 4) CICLOPIROX 8% TOP SOLN APPLY SMALL AMOUNT TOPICALLY ACTIVE ONCE DAILY WIPE OFF WITH ALCOHOL EVERY 7 DAYS; MAX USE 12 MONTHS 5) FLUOCINONIDE 0.05% CREAM APPLY A SMALL AMOUNT ACTIVE TOPICALLY ONCE DAILY FOR PALMAR PSORIATIC LESIONS 6) LISINOPRIL 10MG TAB TAKE ONE TABLET BY MOUTH ONCE ACTIVE (S) DAILY TO CONTROL BLOOD PRESSURE 7) METOPROLOL SUCCINATE 50MG SA TAB TAKE ONE TABLET BY ACTIVE MOUTH AT BEDTIME FOR HIGH BLOOD PRESSURE (NOTE DOSE) 8) MOISTURIZING LOTION APPLY LIBERAL AMOUNT TOPICALLY ACTIVE ONCE DAILY NEEDED FOR DRY SKIN 9) SUNSCREEN 30-50/AVOBENZONE/PABA-F LOTION APPLY A ACTIVE LIBERAL AMOUNT TOPICALLY NEEDED TO PREVENT SUNBURN 10) SUNSCREEN 30-50/PHY BLOCK/PABA-F FACE CR APPLY A ACTIVE LIBERAL AMOUNT TOPICALLY NEEDED TO PREVENT SUNBURN Active Non-VA Medications Status 1) Non-VA ASCORBIC [...] SULFATE) CAP 220MG BY MOUTH ACTIVE DAILY 17 Total Medications Active Problems: Active Problem Atrial flutter I48.92 04/29/2023 LAZARO GARCIA Long-term [...] Major depressive disorder F32.9 06/21/2023 PRETTY MORRIS CC: alcohol use disorder HPI: This is a 67 y/o male with major depressive disorder, HTN, and alcohol use disorder who presented for alcohol detox. admission. He has been drinking for a long time. He did stop drinking 2010 but resumed drinking in June of 2018. Pt drinks Vodka and beer daily. He admits to drinking 0.5 pint of Vodka and 6 Pack beer. He denies any hx of alcohol withdrawal seizures. He denies any chest pain, SOB, or abdominal pain. He reports intermittent diarrhea. He reports talking about self-harm by overdosing on his BP pills. These thoughts are more pronounced over the past week. He was recently diagnosed with afib/flutter and macular degeneration in left. Social Hx: He lives with his in [place]. He quit smoking more than 3 days ago. He has hx of 2 DUI's. Family Hx: father of old age. Mother is alive at 93. She has PVD. ROS: this was reviewed and stated in hx of present illness. In addition he denies any recent hemoptysis, hematemesis or melena. PE: 67 y/o male in NAD HEENT: PERRL, EOMI, multiple dental fillings, no obvious oral lesions. Neck: supple, no lymphadenopathy. Lungs: CTA, no wheezes or rhonchi. Heart; RRR, no murmurs or rube Abd.: obese, non-tender, bowel sounds present, no hepatosplenomegaly. Ext.: no cyanosis or edema. Neuro.: grossly non-focal. Psych.: cooperative. LABS: SERUM Jun 20 Jan 07 Reference 2023 2022 15:29 07:38 Units Ranges GLUCOSE 100 mg/dL 65 - 100 BUN 20 mg/dL 7 - 25 CREATININE 0.85 mg/dL .5 - 1.4 eGFR(IDMN) Ref: >=60 CREAT mg/dL .5 - 1.5 eGFR See Eval Ref: See Eval Sodium 139 mmol/L 135 - 145 K+/Pot 4.2 mmol/L 3.5 - 5 CL 101 mmol/L 100 - 110 CO2 26 mEq/L 20 - 30 CA mg/dL 8.5 - 10.2 UricAci mg/dL 3.5 - 7.2 NH3/Amm PO4 mg/dL 2.5 - 5 T. PROT 8.1 8.0 g/dL 6 - 8.3 ALBUMIN 4.7 4.3 g/dL 3.5 - 5 T BILI 0.9 1.3 H mg/dL .2 - 1.2 D. BILI 0.5 mg/dL 0 - .5 AST 31 27 U/L 5 - 34 ALT 47 31 U/L <6 - 55 GGT U/L 10 - 65 ALK CATHERINE 83 99 U/L 40 - 150 AMYLASE U/L 25 - 125 MAG mg/dL 1.6 - 2.6 ACETONE Ref: Neg T3 Total ng/dL 35 - 193 Comments: a c BLOOD Apr Reference 2023 15:29 Units Ranges WBC 8.46 K/cmm 4.5 - 11 RBC 5.43 M/cmm 4.23 - 5.66 HGB 16.3 g/dL 12.8 - 17 HCT 47.5 % 39.2 - 50.4 MCV 87.5 fl 82 - 99 MCH 30.0 pg 26.2 - 32.6 MCHC 34.3 g/dL 30.8 - 35.1 RDW 12.8 % 12 - 16 PLT 323 K/cmm 140 - 360 LYMPH % % 16 - 40 MONO % % 0 - 14 GRAN % % 48 - 80 Neut% 63.0 % 43.7 - 75.8 Lymph% 25.2 % 14 - 42.3 Rusk% 9.5 % 5.1 - 13.7 Eos% 1.1 % .4 - 6.8 Baso% 0.6 % .1 - 2 NeutAbs 5.34 K/cmm 2.2 - 7.6 LymAbs 2.13 K/cmm 1 - 3.2 MonoAbs 0.80 K/cmm .3 - 1.1 EosAbs 0.09 K/cmm .03 - .44 BasoAbs 0.05 K/cmm .01 - .13 Covid-19 pending. A/P: 1-Alcohol use disorder: Will admit to [facility] for alcohol detox. protocol including CIWA, benzo, folic acid, thiamine. 2-Major depressive disorder: resume home meds. Patient is to be evaluated by psychiatry team in am. 3-Paroxymal afib.: will continue Eliquis and Metoprolol. 4-HTN: continue amlodipine. /brenda/ Jg Kim M.D. FILM HISTORIAN OF THE DAY Signed: 06/21/2023 16:36 06/21/2023 ADDENDUM STATUS: COMPLETED Medication Reconciliation: Outpatient: Has the patient been [...] whether with a VA or non-VA provider. Admission Essential Medication List for Review used to complete this medication reconciliation. JLV Link Data on this list may not be complete. Please check JLV. Allergies/ADRs (Tool #5) FACILITY ALLERGY/ADR -------- No Remote Allergy/ADR Data available for this patient [place] [facility] [facility] No Known Allergies Med Recon NoGlossary (Tool #1) INCLUDED IN THIS LIST: Alphabetical list of active outpatient prescriptions dispensed from this VA (local) and dispensed from another VA or DoD facility (remote) as well as inpatient orders (local pending and active), local clinic medications, locally documented non-VA medications, and local prescriptions that have or been discontinued in the past 90 days. Non-VA Meds Last Documented On: Apr 04, 2018 NOTE The display of VA prescriptions dispensed from another VA or DoD facility (remote) is limited to active outpatient prescription entries matched to National Drug File at the originating site and may not include some items such as investigational drugs, compounds, etc. NOT INCLUDED IN THIS LIST: Medications self-entered by the patient into personal health records (i.e. VideoSurf) are NOT included in this list. Non-VA medications documented outside this [place], remote inpatient orders (regardless of status) and remote clinic medications are NOT included in this list. The patient and provider must always discuss medications the patient is taking, regardless of where the medication was dispensed or obtained. OUTPT AMLODIPINE BESYLATE 5MG TAB (Status = Discontinued) TAKE ONE TABLET BY MOUTH ONCE DAILY FOR BLOOD PRESSURE/HEART, DO NOT TAKE WITH GRAPEFRUIT JUICE Rx# [id number] Last Released: 04/24/23 Qty/Days Supply: Rx Expiration Date: 05/07/23 Refills Remainin OUTPT AMLODIPINE BESYLATE 5MG TAB (Status = Active) TAKE ONE TABLET BY MOUTH ONCE DAILY FOR BLOOD PRESSURE, DO NOT TAKE WITH GRAPEFRUIT JUICE Rx# [id number] Last Released: 05/12/23 Qty/Days Supply: Rx Expiration Date: 04/28/24 Refills Remainin Indication: FOR HIGH BLOOD PRESSURE OUTPT AMPHETAMINE/DEXTROAMPHET 20MG SA CAP (Status = Discontinued) TAKE ONE CAPSULE BY MOUTH ONCE DAILY FOR ADHD WITH HYPERACTIVITY NEXT FILL 04/23/23 Rx# [id number] Last Released: 03/26/23 Qty/Days Supply: Rx Expiration Date: 04/24/23 Refills Remainin Indication: FOR ADHD WITH HYPERACTIVITY OUTPT AMPHETAMINE/DEXTROAMPHET 20MG SA CAP (Status = Discontinued) TAKE ONE CAPSULE BY MOUTH ONCE DAILY FOR ADHD WITH HYPERACTIVITY NEXT FILL 05/24/23 Rx# [id number] Last Released: 04/26/23 Qty/Days Supply: Rx Expiration Date: 05/23/23 Refills Remainin Indication: FOR ADHD WITH HYPERACTIVITY OUTPT AMPHETAMINE/DEXTROAMPHET 20MG SA CAP (Status = ) TAKE ONE CAPSULE BY MOUTH ONCE DAILY FOR ADHD WITH HYPERACTIVITY NEXT FILL 06/21/23 Rx# [id number] Last Released: 05/21/23 Qty/Days Supply: Rx Expiration Date: 06/20/23 Refills Remainin Indication: FOR ADHD WITH HYPERACTIVITY OUTPT APIXABAN 5MG TAB (Status = Discontinued) TAKE ONE TABLET BY MOUTH EVERY 12 HOURS FOR PREVENTION OF BLOOD CLOTS Rx# [id number] Last Released: 04/28/23 Qty/Days Supply: Rx Expiration Date: 05/28/23 Refills Remainin Indication: FOR PREVENTION OF BLOOD CLOTS OUTPT APIXABAN 5MG TAB (Status = Active) TAKE ONE TABLET BY MOUTH EVERY 12 HOURS FOR PREVENTION OF BLOOD CLOTS Rx# [id number] Last Released: 06/04/23 Qty/Days Supply: Rx Expiration Date: 07/04/23 Refills Remainin Indication: FOR PREVENTION OF BLOOD CLOTS Non-VA ASCORBIC ACID 500MG TAB TAKE ONE TABLET BY MOUTH DAILY Patient wants to buy from [place] pharmacy. OUTPT BUPROPION HCL 200MG 12HR SA TAB (Status = Active) TAKE ONE TABLET BY MOUTH ONCE DAILY FOR DEPRESSION Rx# [id number] Last Released: 05/17/23 Qty/Days Supply: 6060 Rx Expiration Date: 02/02/24 Refills Remainin Indication: FOR DEPRESSION OUTPT CICLOPIROX 8% TOP SOLN (Status = Active) APPLY SMALL AMOUNT TOPICALLY ONCE DAILY WIPE OFF WITH ALCOHOL EVERY 7 DAYS; MAX USE 12 MONTHS Rx# [id number] Last Released: 12/18/22 Qty/Days Supply: Rx Expiration Date: 10/15/23 Refills Remainin Indication: FOR FUNGAL DISEASE OF THE NAILS Non-VA FISH OIL 1000MG (500MG DHA/EPA) CAP TAKE 1 CAPSULE BY MOUTH DAILY Patient wants [place] buy [place] pharmacy. OUTPT FLUOCINONIDE 0.05% CREAM (Status = Active) APPLY A SMALL AMOUNT TOPICALLY ONCE DAILY FOR PALMAR PSORIATIC LESIONS Rx# [id number] Last Released: 03/31/23 Qty/Days Supply: 60/90 Rx Expiration Date: 06/24/23 Refills Remainin Indication: FOR PALMAR PSORIATIC LESIONS Non-VA HOMA CAP/TAB TAKE DOSE UNKNOWN BY MOUTH ONCE DAILY Patient wants to buy from Non-[place] pharmacy. OUTPT LISINOPRIL 10MG TAB (Status = Discontinued) TAKE ONE TABLET BY MOUTH ONCE DAILY TO CONTROL BLOOD PRESSURE Rx# [id number] Last Released: 02/18/23 Qty/Days Supply: 90/90 Rx Expiration Date: 11/20/23 Refills Remainin OUTPT LISINOPRIL 10MG TAB (Status = Active/Suspended) TAKE ONE TABLET BY MOUTH ONCE DAILY TO CONTROL BLOOD PRESSURE Rx# [id number] Last Released: 05/17/23 Qty/Days Supply: 90/90 Rx Expiration Date: 05/14/24 Refills Remainin OUTPT METOPROLOL SUCCINATE 25MG SA TAB (Status = Discontinued) TAKE TWO TABLETS BY MOUTH AT BEDTIME FOR BLOOD PRESSURE/HEART Rx# [id number] Last Released: 04/28/23 Qty/Days Supply: 60/30 Rx Expiration Date: 05/28/23 Refills Remainin OUTPT METOPROLOL SUCCINATE 25MG SA TAB (Status = Discontinued) TAKE TWO TABLETS BY MOUTH AT BEDTIME FOR BLOOD PRESSURE/HEART Rx# [id number] Last Released: 05/17/23 Qty/Days Supply: 60/30 Rx Expiration Date: 06/13/23 Refills Remainin OUTPT METOPROLOL SUCCINATE 50MG SA TAB (Status = Active) TAKE ONE TABLET BY MOUTH AT BEDTIME FOR HIGH BLOOD PRESSURE (NOTE DOSE) Rx# [id number] Last Released: 05/28/23 Qty/Days Supply: 90/90 Rx Expiration Date: 05/27/24 Refills Remainin Indication: FOR HIGH BLOOD PRESSURE OUTPT MOISTURIZING LOTION (Status = Active) APPLY LIBERAL AMOUNT TOPICALLY ONCE DAILY NEEDED FOR DRY SKIN Rx# [id number] Last Released: 03/27/23 Qty/Days Supply: 480/90 Rx Expiration Date: 10/07/23 Refills Remainin Indication: FOR DRY SKIN Non-VA MULTIVITAMIN CAP/TAB TAKE ONE TABLET BY MOUTH ONCE DAILY Patient wants to buy from Non-[facility] pharmacy. Non-[facility] OTHER CAP/TAB TAKE MEDIUM CHAIN TRIGLYCERIDES BY MOUTH ONCE DAILY Patient wants to buy from Non-VA pharmacy. Non-VA OTHER CAP/TAB TAKE PLANT PROTEIN BY MOUTH ONCE DAILY Patient [place] pharmacy. OUTPT SUNSCREEN 30-50/AVOBENZONE/PABA-F LOTION (Status = Active) APPLY A LIBERAL AMOUNT TOPICALLY NEEDED TO PREVENT SUNBURN Rx# [id number] Last Released: 04/01/23 Qty/Days Supply: 480/90 Rx Expiration Date: 10/07/23 Refills Remainin Indication: TO PREVENT SUNBURN OUTPT SUNSCREEN 30-50/PHY BLOCK/PABA-F FACE CR (Status = Active) APPLY A LIBERAL AMOUNT TOPICALLY NEEDED TO PREVENT SUNBURN Rx# [id number] Last Released: 10/08/22 Qty/Days Supply: 360/90 Rx Expiration Date: 10/07/23 Refills Remainin Indication: TO PREVENT SUNBURN Non-VA ZINC 50MG (FROM [place]) CAP TAKE 1 CAPSULE BY MOUTH DAILY Patient [place]. SUPPLIES Has the patient been taking medications as documented in CPRS? YES, the medication list was reviewed with the patient/caregiver, and the patient has been taking medications as documented in CPRS. The patient's outpatient medications were continued as inpatient medications with the following exceptions: No exceptions. /brenda/ Jg Kim M.D. FILM HISTORIAN OF THE DAY Signed: 06/21/2023 16:39 [facility] [place] [facility]
--- OUTSIDE RECORDS SUMMARY | 2024-06-06 17:57 | XMS_ITS ---
Author Name [facility] [place] [facility] [place] [facility] [place] [facility] [place] Address [address] [place] [address] Care Team Providers Care Egg Caser Name Role Phone ARIANNE CHERY Primary Care [...] Name Patient's Relationship to Policy [facility] [employer] Aug 29, 2017 [id number] Kathy MURPHY [facility] Mar 01, 2014 [id number] [phone] Kathy MURPHY SPOUSE MEDICARE (WNR) MEDICARE (M) PART A Sep 29, 2020 PART A [id number] [facility] Guanakito MURPHY PATIENT MEDICARE (WNR) MEDICARE (M) PART A Sep 29, 2020 PART A [id number] Guanakito MURPHY PATIENT Selected Encounter This section includes the information on record at [place] for the Encounter. Date/Time Encounter Type Encounter Description Reason Provider Source Jun 24, 2023 09:45 AM [facility]NA[facility] - IND ICD-10-CM F10.230 Alcohol dependence with withdrawal, uncomplicated LARAPOONAMJozef Haskins Kathy Encounter Template Text not used by [place] Assessments - Encounter Diagnoses This section includes the primary and secondary diagnoses documented for the Encounter. Date/Time Primary/Secondary Diagnosis Diagnosis Name Provider Source Jun 24, 2023 11:01 AM PRIMARY Alcohol dependence with withdrawal, uncomplicated PENOBSCOTRADHA V [facility] [place] [facility] Jun 24, 2023 11:01 AM SECONDARY Major depressive disorder, single episode, unspecified PENOBSCOT,RADHA V [facility] [place] [facility] Plan of Treatment: Future Appointments (+ 6 months) and Future Tests (+/- 45 days) The Plan of Treatment section includes future care activities for the patient from all [place] treatmentfacilities. This section includes future appointments and future orders which are active, pending or scheduled. Future Appointments This section includes appointments that were scheduled to occur 6 months from the date of the Encounter, up to a maximum of 20 appointments. The data comes from all [place] treatment facilities. Appointment Date/Time Appointment Type Appointme nt Facility Name July 05, 2023 02:30 PM AMBULATORY - PSYCHIATRY [facility] [place] [facility] July 07, 2023 09:15 AM AMBULATORY - MEDICINE [place] [facility] [place] [facility] July 12, 2023 01:00 PM AMBULATORY - PSYCHIATRY [facility] [place] [facility] July 16, 2023 03:00 PM AMBULATORY - PSYCHIATRY [facility] [place] [facility] July 23, 2023 03:30 PM AMBULATORY - PSYCHIATRY [facility] [place] [facility] Aug 13, 2023 03:30 PM AMBULATORY - PSYCHIATRY [facility] [place] [facility] Aug 16, 2023 11:00 AM AMBULATORY - MEDICINE [place] [facility] [facility] Aug 27, 2023 11:30 AM AMBULATORY - MEDICINE [place] [facility] [facility] Sep 14, 2023 09:30 AM AMBULATORY - MEDICINE [place] [facility] [facility] Sep 17, 2023 03:30 PM AMBULATORY - PSYCHIATRY [facility] [place] [facility] Oct 05, 2023 01:00 PM AMBULATORY - MEDICINE [facility] [place] [facility] Oct 14, 2023 02:00 PM AMBULATORY - NONE [facility] [place] [facility] Nov 12, 2023 03:30 PM AMBULATORY - PSYCHIATRY [facility] [place] [facility] Nov 25, 2023 07:30 AM AMBULATORY - REHAB MEDICIN E [facility] [place] [facility] Nov 25, 2023 08:30 AM AMBULATORY - PSYCHIATRY [facility] [place] [facility] Nov 25, 2023 11:00 AM AMBULATORY - MEDICINE [facility] Dec 03, 2023 07:30 AM AMBULATORY - REHAB MEDICIN E [facility] [place] [facility] Dec 09, 2023 08:15 AM AMBULATORY - REHAB MEDICIN E [facility] [place] [facility] Dec 15, 2023 01:00 PM AMBULATORY - REHAB MEDICIN E [facility] [place] [facility] Dec 24, 2023 03:00 PM AMBULATORY - PSYCHIATRY [facility] [place] [facility] Active, Pending, and Scheduled Orders This section includes a listing of several types of active, pending, and scheduled orders, including clinic medications orders, diagnostic test orders, procedure orders and consult orders; where the start date of the order is 45 days before the date of the Encounter or 45 days after the date of theEncounter. The data comes from all [place] treatment facilities. Test Date/Time Test Type Test Details Facility Name May 14, 2023 12:00 AM Laboratory - Chemi stry Order LIPID PANEL FASTING BLOOD (SST-SERUM) [facility] May 14, 2023 12:00 AM Laboratory - Chemi stry Order BASIC METABOLIC PANEL (fasting) BLOOD (SST-SERUM) [facility] May 14, 2023 12:00 AM Laboratory - Chemi stry Order LIVER FUNCTION BLOOD (SST-SERUM) [facility] May 14, 2023 12:00 AM Laboratory - Chemi stry Order CBC AND DIFF (AUTO) BLOOD (LAV-BLOOD) [facility] May 14, 2023 12:00 AM Laboratory - Chemi stry Order TSH BLOOD (SST-SERUM) [facility] May 14, 2023 12:00 AM Laboratory - Chemi stry Order HEMOGLOBIN A1C PANEL BLOOD (LAV-BLOOD) [facility] Lab Results: +/- 30 days of the [...] Range Comment Jun 24, 2023 06:38 AM [facility] FOLATE (WROX) Specimen Type: SERUM No comment entered. Ordering Provider: GRZEGORZ MÁRQUEZ Report Released Date/Time: Jun 23, 2023 11:15 AM Reporting [facility] [address] [address] Performing Lab: [facility] [address] [address] FOLATE (WROX) 17.13 ng/mL >5.2 Jun 24, 2023 06:38 AM [facility] HEMOGLOBIN A1C PANEL Specimen Type: BLOOD Comment: Values obtained from A1C measurements can vary. For atypical A1C assays, a reported value of 7.0 could actually be between 6.72 and 7.28 if measured by a reference method. A reported value of 9.0 could actually be between 8.73 and 9.27. Ref: http://www.ng sp.org/CAPdat a.asp Ordering Provider: GRZEGORZ MÁRQUEZ Report Released Date/Time: Jun 23, 2023 11:15 AM Reporting Lab: [facility] [address] Performing Lab: [facility] [address] HEMOGLOBIN A1C 5.3 4.0-5.6 Jun 24, 2023 06:38 AM [facility] TSH Specimen Type: SERUM No comment entered. Ordering Provider: GRZEGORZ MÁRQUEZ Report Released Date/Time: Jun 23, 2023 11:15 AM Reporting Lab: [facility] [address] Performing Lab: [facility] [address] [facility] [address] TSH 2.11 u[IU]/mL 0.35-5.00 Jun 24, 2023 06:38 AM [facility] VITAMIN B12 Specimen Type: SERUM No comment entered. Ordering Provider: GRZEGORZ MÁRQUEZ Report Released Date/Time: Jun 23, 2023 11:15 AM Reporting Lab: [address] [address] Performing Lab: [facility] [address] [address] VITAMIN B12 647 pg/mL 200-900 Jun 24, 2023 06:38 AM [facility] LIPID PANEL FASTING Specimen Type: SERUM No comment entered. Ordering Provider: GRZEGORZ MÁRQUEZ Report Released Date/Time: Jun 23, 2023 11:15 AM Reporting Lab: [address] [address] Performing Lab: [facility] [address] [address] CHOLESTEROL 181 mg/dL TRIGLYCERIDE 180 mg/dL H 0-150 LDL calculated 106 mg/dL 0-129 CHOL/HDL 4.6 HDL CHOLESTEROL 39 mg/dL L 40-60 Jun 22, 2023 06:30 AM [facility] LIVER FUNCTION Specimen Type: SERUM No comment entered. Ordering Provider: DONA KIM Report Released Date/Time: Jun 21, 2023 06:07 PM Reporting Lab: [facility] [address] Performing Lab: [address] [address] PROTEIN,TOTAL 7.3 g/dL 6.0-8.3 ALBUMIN 4.1 g/dL 3.5-5.0 ALKALINE PHOSPHATASE 80 U/L 40-150 AST 23 U/L 5-34 ALT 39 U/L BILIRUBIN, TOTAL 0.9 mg/dL 0.2-1.2 Jun 21, 2023 03:49 PM [facility] COVID-19 MONITOR PANEL (CEPHEID) Specimen Type: NASOPHARYNX Comment: This test is authorized for emergency use only. False negative results may occur if virus is present at levels below the analytical limit of detection.Neg ative results do not preclude SARS-CoV-2 infection and should not be used as the sole basis for treatment or other patient management decisions.Cep heid FLUVID: HCPs: https://www. [place].gov/media/ 689662/downlo ad. Patients: https://www. [place].gov/media/ 971061/downlo ad Ordering Provider: DIEGO MEJIAS Report Released Date/Time: Jun 21, 2023 03:18 PM Reporting Lab: [address] [address] Performing Lab: [address] [address] COVID-19 JARED (CEPHEID) NEGATIVE Negative Jun 21, 2023 03:29 PM [facility] ETHANOL Specimen Type: PLASMA No comment entered. Ordering Provider: DIEGO MEJIAS Report Released Date/Time: Jun 21, 2023 03:18 PM Reporting Lab: [address] [address] Performing Lab: [address] [address] ETHANOL <10 mg/dL Jun 21, 2023 03:29 PM [facility] LIVER FUNCTION Specimen Type: SERUM No comment entered. Ordering Provider: DIEGO MEJIAS Report Released Date/Time: Jun 21, 2023 03:18 PM Reporting Lab: [address] [address] Performing Lab: [address] [address] PROTEIN,TOTAL 8.1 g/dL 6.0-8.3 ALBUMIN 4.7 g/dL 3.5-5.0 ALKALINE PHOSPHATASE 83 U/L 40-150 AST 31 U/L 5-34 ALT 47 U/L BILIRUBIN, TOTAL 0.9 mg/dL 0.2-1.2 Jun 21, 2023 03:29 PM [facility] BASIC METABOLIC PANEL (non-fasting) Specimen Type: SERUM No comment entered. Ordering Provider: DIEGO MEJIAS Report Released Date/Time: Jun 21, 2023 03:18 PM Reporting Lab: [address] [address] Performing Lab: [address] [address] UREA NITROGEN 20 mg/dL 7-25 GLUCOSE 100 mg/dL 65-100 SODIUM 139 mmol/L 135-145 POTASSIUM 4.2 mmol/L 3.5-5.0 CHLORIDE 101 mmol/L 100-110 CO2 26 meq/L 20-30 CREATININE, Serum 0.85 mg/dL 0.50-1.40 eGFR(CKD-EPI 2020) >90 mL/min >60 Jun 21, 2023 03:29 PM [facility] DRUGS OF ABUSE Specimen Type: URINE [...] Jun 21, 2023 03:18 PM Reporting Lab: [address] [address] Performing Lab: [address] [address] AMPHETAMINES SCREEN NONE-DETECTED None-Detec josefina, Cutoff = [...] 3-1.02 0 Jun 21, 2023 03:29 PM [facility] CBC AND DIFF (AUTO) Specimen Type: BLOOD No comment entered. Ordering Provider: DIEGO MEJIAS Report Released Date/Time: Jun 21, 2023 03:18 PM Reporting Lab: [address] [address] Performing Lab: [address] [address] WBC 8.46 10*3/uL 4.50-11.00 RBC 5.43 10*6/uL 4.23-5.66 HGB 16.3 g/dL 12.8-17 HCT 47.5 39.2-50.4 MCV 87.5 fL 82-99 MCHC 34.3 g/dL 30.8-35.1 PLT 323 10*3/uL 140-360 RDW-CV 12.8 12.0-16.0 [place], Abs 0.80 10*3/uL 0.30-1.10 MCH 30.0 pg 26.2-32.6 Neut % 63.0 43.7-75.8 Lymph % 25.2 14.0-42.3 [place] % 9.5 5.1-13.7 Eos % 1.1 0.4-6.8 [...] PM 3 [facility] [place] [facility] Jun 24, 2023 10:08 PM 5 [facility] [place] [facility] Jun 24, 2023 08:15 PM 98.1 17 148/98 67 97 [facility] [place] [facility] Jun 24, 2023 09:59 AM 0 [facility] [place] [facility] Jun 24, 2023 08:33 AM 1 [place] [facility] [place] [facility] Advance Directives: All historical and current Section Date Range: From patient's date of to the date document was created. This section includes ALL of a patient's completed or amended [place] Advance and Rescinded Directives. The entries below indicate that a directive exists for the patient, but an actual copy is not included with this document. The data comes from all [place] facilities. Date Advance Directives Provider Source Jun 25, 2023 ADVANCE DIRECTIVE DISCUSSION AMAYA BERMUDEZ [facility] [place] [facility] Aug 06, 2017 ADVANCE DIRECTIVE ABDIRASHID [facility] Encounter Notes: All associated encounter notes This section contains the clinical notes associated to the Encounter. Date/Time Encounter Note(s) Provider Source Jun 24, 2023 03:39 PM ADDENDUM: LOCAL TITLE: Addendum STANDARD TITLE: ADDENDUM DATE OF NOTE: JUN 24, 2023@15:39:18 ENTRY DATE: JUN 24, 2023@15:39:19 AUTHOR: AMAYA BERMUDEZ EXP COSIGNER: URGENCY: STATUS: COMPLETED Counsel spoke to The 's , Huma Murphy, . We discussed the different options for aftercare and the plan he is choosing is to do the [facility] individual therapy and 1-2 weekly groups. He knows that if he is struggling to stay sober he can increase his care to the IOP or the [facility]. He wants to return to work as he feels important there and his confirmed that he is important at his job. This feels good to the veetran. He plans to return to AA meetings as well. We plan a discharge for Wednesday06/28/23 and she is on board with this. His recent drinking was hard on her and waiting until after the weekend will also give her extra time to recouportate. She will pick him up at 12 noon on Wednesday06/28/23. She confirmed that he has no firearms in the house. They are at the in laws house. Sw asked about her concern levels around his thoughts and comments of SI by taking his pills. She stated that she was not very concerned as he has no SI behavior in his history and he only made these comments when he was drunk or high. She said their daugter, who is an adult and a nurse was more concerned as he would call her when he was under the influence and he had made these comments to her. /brenda/ TETE ARIAS Counsel Signed: 06/24/2023 15:48 Receipt Acknowledged By: 06/24/2023 17:32 /es/ GRZEGORZ MÁRQUEZ MD PSYCHIATRIST --- Original Document --- 06/24/23 SOCIAL WORK NOTE: Rosedale is a 67 year(s) old, MALE is currently MARITAL STATUS - Diagnoses: MDD; Alcohol Use Disorder, Severe Reason for admission: Alcohol detox [employer] FROM Dec TO Dec SEPTUM, NASAL, DEVIATION OF 0% SC IMPAIRED HEARING 0% SC TINNITUS 10% SC MAJOR DEPRESSIVE DISORDER 50% SC Provider(s): TETE [place]; Grzegorz Márquez MD; Kalie Clark RN; Kalie Webb PsyD; Radha Doss MSW Insulation Cupola Operator Duration: 15 min Patient Identifiers: X Visual Recognition Birthdate SS# X Patient Name Content: The met with the treatment team [...] their concern about the SI that the was facing when he was admitted and his plan. The [place] stated that he has no current SI or plan. He expressed that he often experiences SI when he is drinking. The feels he has alot of strong supports at home and hoem would be a better option for him. The [place] stated that his left eye is still bothering him. The plan for discharge is Wednesday06/28/2023. The has consult placed for the [facility] where he will be assigned an indiviual therapist, attend the Relaspe Prevention Group, and start back up AA groups in the [facility]. If the Rosedale is struggling to stay sober he will be bumped up to [facility]. A consult is also placed with a hobbing press operator in [place] to see if he can continue to take his Adderall. The [place] is going to start taking Camphral today to help with alcohol cravings. The stated that he had taken it in 2010 for 6-7 months, he stated that it worked well for him. The Veterans goal for the day is to attend groups and build a puzzle. Plan/Progress Towards Discharge: Treatment team will monitor for progress/stabilization on medications. Staff will continue to offer therapeutic support and monitor for safety. The is interested in individual therapy and a Relapse Prevention Group at the [facility]. He would attend AA. He is interested in Camphral. This case is supervised by TETE España and Estefania Meade. Diagnosis, treatment plan,and response to care are reviewed in standard 1- hour, or more, weekly individual supervision meeting. /brenda/ RADHA DOSS SOFTWARE RECRUITER Insulation Cupola Operator Signed: 06/24/2023 11:01 /brenda/ TETE ARIAS Counsel Cosigned: 06/24/2023 11:32 06/24/2023 ADDENDUM STATUS: COMPLETED I have reviewed this case and concur with the clinical impressions and recommendations made by this trainee who is under my clinical supervision. /brenda/ TETE ARIAS Counsel Signed: 06/24/2023 11:34 AMAYA BERMUDEZ [facility] [place] [facility] Jun 24, 2023 09:45 AM SOCIAL WORK NOTE: [facility] TITLE: SOCIAL WORK NOTE STANDARD TITLE: SOCIAL WORK NOTE DATE OF NOTE: JUN 24, 2023@09:45 ENTRY DATE: JUN 24, 2023@10:35:54 AUTHOR: RADHA DOSS V EXP COSIGNER: AMAYA BERMUDEZ URGENCY: STATUS: COMPLETED SOCIAL WORK NOTE Has ADDENDA is a 67 year(s) old, MALE Rosed[place] is currently MARITAL STATUS - Diagnoses: MDD; Alcohol Use Disorder, Severe Reason for admission: Alcohol detox [employer] FROM Dec TO Dec SEPTUM, NASAL, DEVIATION OF 0% SC IMPAIRED HEARING 0% SC TINNITUS 10% SC MAJOR DEPRESSIVE DISORDER 50% SC Provider(s): Amaya Bermudez [facility]; Grzegorz Márquez MD; Kalie Clark RN; Kalie Webb PsyD; PHILLY Andrew Insulation Cupola Operator Duration: 15 min Patient Identifiers: X Visual Recognition Birthdate SS# X Patient Name Content: The met with the treatment team [...] he wants to go home . The [place] stated that he has a lot of outside responsibilities associated to his home, , and family. Providers shared their concern about the SI that the was facing when he was admitted and his plan. The stated that he has no current SI or plan. He expressed that he often experiences SI when he is drinking. The feels he has alot of strong supports at home and hoem would be a better option for him. The [place] stated that his left eye is still bothering him. The plan for discharge is Wednesday06/28/2023. The has consult placed [facility] where he will be assigned an indiviual therapist, attend the Relas[facility] Prevention Group, and start back up AA groups in the [facility]. If the is struggling to stay sober he will be bumped up to [facility]. A consult is also placed with a hobbing press operator in [place] to see if he can continue to take his Adderall. The [place] is going to start taking Camphral today to help with alcohol cravings. The stated that he had taken it in 2010 for 6-7 months, he stated that it worked well for him. The Veterans goal for the day is to attend groups and build a puzzle. Plan/Progress Towards Discharge: Treatment team will monitor for progress/stabilization on medications. Staff will continue to offer therapeutic support and monitor for safety. The is interested in individual therapy and a Relapse Prevention Group at the [facility]. He would attend AA. He is interested in Camphral. This case is supervised by TETE Esp[place] and Estefania Meade. Diagnosis, treatment plan,and response to care are reviewed in standard 1- hour, or more, weekly individual supervision meeting. /brenda/ RADHA DOSS SOFTWARE RECRUITER Insulation Cupola Operator Signed: 06/24/2023 11:01 /brenda/ TETE ARIAS Counsel Cosigned: 06/24/2023 11:32 06/24/2023 ADDENDUM STATUS: COMPLETED I have reviewed this case and concur with the clinical impressions and recommendations made by this trainee who is under my clinical supervision. /brenda/ TETE ARIAS Counsel Signed: 06/24/2023 11:34 06/24/2023 ADDENDUM STATUS: COMPLETED Counsel spoke to The 's , Huma Murphy, . We discussed the different options for aftercare and the plan he is choosing is to do the [facility] individual therapy and 1-2 weekly groups. He knows that if he is struggling to stay sober he can increase his care to the IOP or the [facility]. He wants to return to work as he feels important there and his confirmed that he is important at his job. This feels good to the veetran. He plans to return to AA meetings as well. We plan a discharge for Wednesday06/28/23 and she is on board with this. His recent drinking was hard on her and waiting until after the weekend will also give her extra time to recouportate. She will pick him up at 12 noon on Wednesday06/28/23. She confirmed that he has no firearms in the house. They are at the in laws house. Sw asked about her concern levels around his thoughts and comments of SI by taking his pills. She stated that she was not very concerned as he has no SI behavior in his history and he only made these comments when he was drunk or high. She said their daugter, who is an adult and a nurse was more concerned as he would call her when he was under the influence and he had made these comments to her. /brenda/ TETE ARIAS Counsel Signed: 06/24/2023 15:48 Receipt Acknowledged By: 06/24/2023 17:32 /brenda/ GRZEGORZ MÁRQUEZ MD PSYCHIATRIST 06/25/2023 ADDENDUM STATUS: COMPLETED Counsel Lara followed up with [facility] Prevention Team about the [facility] consult and noted the discussion the SW had with the 's . /brenda/ TETE ARIAS Counsel Signed: 06/25/2023 15:58 RADHA DOSS V [facility]
--- OUTSIDE RECORDS SUMMARY | 2024-06-06 17:57 | XMS_ITS | Encounter Summary ---
Author Name [place] Address [address] [place] [id number] Care Team Providers Care Waiter/Waitress Head Name Role Phone ARIANNE CHERY Primary Care [...] Name Patient's Relationship to Policy [facility] [employer]ZA [employer] Aug 29, 2017 [id number] [phone] Kathy ESTRADA [facility] CE ORGANIZ COMMO [facility] Mar 01, 2014 [id number] [phone] Kathy ESTRADA SPOUSE MEDICARE (WNR) MEDICARE (M) PART A Sep 29, 2020 PART A [id number] Guan[place]ito ESTRADA PATIENT MEDICARE (WNR) MEDICARE (M) PART A Sep 29, 2020 PART A [id number] [facility] [phone] Guan[place]ito ESTRADA PATIENT Selected Encounter This section includes the information on record at [place] for the Encounter. Date/Time Encounter Type Encounter Description Reason Provider Source Oct 14, 2023 02:00 PM UNLISTED SPEC DERM SVC/PX DERMATOLOGY ICD-10-CM Z13.89 Encounter for screening for other disorder KATERINE CHRIS Kathy Encounter Template Text not used by [place] Assessments - Encounter Diagnoses This section includes the primary and secondary diagnoses documented for the Encounter. Date/Time Primary/Secondary Diagnosis Diagnosis Name Provider Source Oct 14, 2023 03:40 PM PRIMARY Encounter for screening for other disorder SURAJ CHRIS [facility] Plan of Treatment: Future Appointments (+ 6 months) and Future Tests (+/- 45 days) The Plan of Treatment section includes future care activities for the patient [facility] [place] [facility] This section includes future appointments and future orders which are active, pending or scheduled. Future Appointments This section includes appointments that were scheduled to occur 6 months from the date of the Encounter, up to a maximum of 20 appointments. The data comes from all [place] treatment facilities. Appointment Date/Time Appointment Type Appointme nt Facility Name Nov 12, 2023 03:30 PM AMBULATORY - [facility] [place] [facility] Nov 25, 2023 07:30 AM AMBULATORY - [facility]HAB MEDICIN [facility] [place] [facility] Nov 25, 2023 08:30 AM AMBULATORY [facility]IAT[facility] [place] [facility] Nov 25, 2023 11:00 AM AMBULATORY - MEDICINE [facility] Dec 03, 2023 07:30 AM AMBULATORY - REHAB MEDICIN [facility] [place] [facility] Dec 09, 2023 08:15 AM AMBULATORY - REHAB MEDICIN E [facility] [place] [facility] Dec 15, 2023 01:00 PM AMBULATORY - REHAB MEDICIN E [facility] [place] [facility] Dec 24, 2023 03:00 PM AMBULATORY - PS[facility]CHIATRY [facility] [place] [facility] Dec 31, 2023 02:30 PM AMBULATORY - REHAB MEDICIN E [facility] [place] [facility] Jan 17, 2024 08:30 AM AMBULATORY [facility] MEDICINE [facility] [place] [facility] Jan 17, 2024 09:45 AM AMBULATORY - MEDICINE [place] [facility] [place] [facility] Feb 17, 2024 03:30 PM AMBULATORY - PS[facility]CHIATRY [facility] [place] [facility] Mar 23, 2024 08:00 AM AMBULATORY [facility] MEDICINE [facility] [place] [facility] Apr 04, 2024 09:30 AM AMBULATORY - REHAB MEDICIN E [facility] [place] [facility] Apr 05, 2024 03:30 PM [facility] Social History: Smoking Status (Most current) and Tobacco Use (All prior to encounter date) This section includes the most current, and the historical, smoking and tobacco- related health factors from the [place] facility where the Encounter took place. Current Smoking Status This section includes the most current smoking, or tobacco-related health factor, from the [place] facility where the Encounter took place. Date/Time Current Smoking Status Comment Facil ity Jan 13, 2023 03:30 PM VA-TOBACCO FORMER USER [facility] Tobacco Use History This section includes a history of the smoking, or tobacco-related health factors, that were collected on or before the date of the Encounter. The data comes from the [place] facility where the Encounter took place. Date/Time Smoking Status/Tobacco Use Comment F acility Jan 13, 2023 03:30 PM VA-TOBACCO QUIT 15 YRS OR MORE [facility] Feb 03, 2022 09:30 AM VA-TOBACCO FORMER USER [facility] Feb 03, 2022 09:30 AM VA-TOBACCO QUIT 15 YRS OR MORE [facility] Jan 28, 2021 09:00 AM VA-TOBACCO FORMER USER [facility] Jan 28, 2021 09:00 AM VA-TOBACCO QUIT 15 YRS OR MORE [facility] Feb 19, 2020 01:00 PM VA-TOBACCO FORMER USER [facility] Feb 19, 2020 01:00 PM VA-TOBACCO QUIT 15 YRS OR MORE [facility] May 02, 2018 09:49 AM VA-TOBACCO FORMER USER [facility] May 02, 2018 09:49 AM VA-TOBACCO QUIT 15 YRS OR MORE [facility] Jun 03, 2017 09:23 AM QUIT TOBACCO USE 1-7 YEARS AGO [facility] June 30, 2016 09:51 AM QUIT TOBACCO USE > 7 YEARS AGO 24 yrs ago [facility] Nov 07, 2015 01:29 PM QUIT TOBACCO USE 1-7 YEARS AGO [facility] Sep 30, 2015 01:53 PM QUIT TOBACCO USE 1-7 YEARS AGO [facility] Sep 13, 2014 02:46 PM QUIT TOBACCO USE > 7 YEARS AGO [facility] Advance Directives: All historical and current Section Date Range: From patient's date of to the date document was created. This section includes ALL of a patient's completed or amended [place] Advance and Rescinded Directives. The entries below indicate that a directive exists for the patient, but an actual copy is not included with this document. The data comes from all [place] facilities. Date Advance Directives Provider Source Jun 25, 2023 ADVANCE DIRECTIVE DISCUSSION AMAYA FRANZ [facility] Aug 06, 2017 ADVANCE DIRECTIVE ABDIRASHID [facility] Radiology Reports: +/- 30 days of [...] the Encounter. The data comes from all [place] treatment facilities. Date/Time Radiology Report Provider Source Sep 17, 2023 02:56 PM SPINE CERVICAL, 4 OR 5 VIEWS: EMA ESTRADA [id number] -[id number] M Exm Date: SEP 17, 2023@14:56 Req Phys: JOSE,LAZARO Pat Loc: CWM/SO/PACT 9 (Req'g Loc) Img Loc: [facility] 1 Service: Unknown [facility] , (Case [id number] COMPLETE) SPINE CERVICAL, 4 OR 5 VIEWS (RAD Detailed) CPT:64526 Reason for Study: neck pain Clinical History: Report Status: Verified Date Reported: SEP 17, 2023 Date Verified: SEP 17, 2023 Master Dyer E-Sig:/ES/MAVERICK SANCHEZ JR Report: Study: AP, lateral [...] Primary Interpreting Staff: MAVERICK SANCHEZ JR, Radiologist (Master Dyer) /MAVERICK DU JR [facility] Encounter Notes: All associated encounter notes This section contains the clinical notes associated to the Encounter. Date/Time Encounter Note(s) Provider Source Oct 14, 2023 03:20 PM TELEHEALTH CONSULT : LOCAL TITLE: CONSULT REPORT/TELEDERMATOLOGY IMAGING REQUEST STANDARD TITLE: TELEHEALTH CONSULT DATE OF NOTE: OCT 14, 2023@15:20 ENTRY DATE: OCT 14, 2023@15:20:25 AUTHOR: CHANTE CHRIS COSIGNER: URGENCY: STATUS: COMPLETED Teledermatology Consult Request The patient was educated regarding the Teledermatology process at this encounter. Comment: PATIENT EDUCATED ON TELEDERM AND VERBALIZES UNDERSTANDING. Patient DOES consent to have images taken, viewed, and interpreted using the Teledermatology process. This consult addresses: A new condition Images were acquired: In clinic HISTORY: Prior skin history: None reported Have you had a skin cancer before? None Reported Patient reports no family history of melanoma. Taking new med/supplements: Yes Name of medication(s): APIXABAN TAB,ORAL 5MG AND FLUOCINONIDE 0.05% CREAM,TOP 0.05% Immunosuppression history: None reported Other significant history: None reported Chief Complaint: skin changes to mole on the LEFT shoulder PROBLEM A LOCATION(S): Trunk:LEFT SHOULDER ((GREEN ARROW) DURATION: ABOUT A YEAR AGO SYMPTOMS: Itch, Redness CHANGES: Color TREATMENT: Yes Details: FLUOCINONIDE 0.05% CREAM,TOP 0.05% NOT HELPING MUCH. BIOPSY: No PROBLEM B: LOCATION(S): Trunk:LEFT SCAPULA (BLUE ARROW) DURATION: NOT SURE, JUST SEEING IT SYMPTOMS: No Symptoms CHANGES: None TREATMENT: No BIOPSY: No PROBLEM C: LOCATION(S): Upper Extremity:LEFT FOREARM (YELLOW ARROW) DURATION: ABOUT 6 MONTHS AGO SYMPTOMS: Bleeding History: WHEN SCRATCHING, Itch, Redness CHANGES: Color TREATMENT: Yes Details: FLUOCINONIDE 0.05% CREAM,TOP 0.05% NOT HELPING MUCH BIOPSY: No Precision Lens Technician's comments: IMAGED PER PROVIDER'S DIRECTION AND FACILITY PROTOCOL. /brenda/ CHANTE CHRIS TELEHEALTH CLINICAL TECHNIAN (TCT) Signed: 10/14/2023 15:46 CHANTE CHRIS [facility]
--- OUTSIDE RECORDS SUMMARY | 2024-06-06 17:57 | XMS_ITS | Encounter Summary ---
Author Name [facility] [place] Address [address] [place] [address] Care Team Providers Care Psychiatric Cns Name Role Phone ARIANNE CHERY Primary Care [...] Name Patient's Relationship to Policy [facility] ORGANESPERANZA [employer] Aug 29, 2017 [id number] [phone] Kathy MURPHY [facility] ORGANIZ COMMO [facility] Mar 01, 2014 [id number] [phone] Kathy MURPHY SPOUSE MEDICARE (WNR) MEDICARE (M) PART A Sep 29, 2020 PART A [id number] [facility] [phone] Guan[place]ito MURPHY PATIENT MEDICARE (WNR) MEDICARE (M) PART A Sep 29, 2020 PART A [id number] Guan[place]ito MURPHY PATIENT Selected Encounter This section includes the information on record at [place] for the Encounter. Date/Time Encounter Type Encounter Description Reason Provider Source Jun 23, 2023 02:20 PM GROUP PSYCHOTHERAPY [facility] ICD-10-CM Z72.89 Other problems related to lifestyle KALIE AGOSTO Kathy Encounter Template Text not used by [place] Assessments - Encounter Diagnoses This section includes the primary and secondary diagnoses documented for the Encounter. Date/Time Primary/Secondary Diagnosis Diagnosis Name Provider Source Jun 23, 2023 04:25 PM PRIMARY Other problems related to lifestyle KALIE AGOSTO [place] [facility] [place] [facility] Jun 23, 2023 04:25 PM SECONDARY Major depressive disorder, single episode, unspecified KALIE AGOSTO [place] [facility] [place] [facility] Plan of Treatment: Future Appointments (+ 6 months) and Future Tests (+/- 45 days) The Plan of Treatment section includes future care activities for the patient [facility] [place] [facility]. This section includes future appointments and [...] - PSYCHIATRY [facility] [place] [facility] July 07, 2023 09:15 AM AMBULATORY - MEDICINE [facility] [place] [facility] July 12, 2023 01:00 PM AMBULATORY - PSYCHIATRY [facility] [place] [facility] July 16, 2023 03:00 PM AMBULATORY - PSYCHIATRY [facility] [place] [facility] July 23, 2023 03:30 PM AMBULATORY - PSYCHIATRY [facility] [place] [facility] Aug 13, 2023 03:30 PM AMBULATORY - PSYCHIATRY [facility] [place] [facility] Aug 16, 2023 11:00 AM AMBULATORY - MEDICINE [facility] [place] [facility] Aug 27, 2023 11:30 AM AMBULATORY - MEDICINE [facility] [place] [facility] Sep 14, 2023 09:30 AM AMBULATORY - MEDICINE [facility] [place] [facility] Sep 17, 2023 03:30 PM AMBULATORY - PSYCHIATRY [facility] [place] [facility] Oct 05, 2023 01:00 PM AMBULATORY - MEDICINE [facility] [place] [facility] Oct 14, 2023 02:00 PM AMBULATORY - NONE [facility] [place] [facility] Nov 12, 2023 03:30 PM AMBULATORY - PSYCHIATRY [facility] [place] [facility] Nov 25, 2023 07:30 AM AMBULATORY - REHAB MEDICIN E [facility] [place] [facility] Nov 25, 2023 08:30 AM AMBULATORY - PSYCHIATRY [facility] [place] [facility] Nov 25, 2023 11:00 AM [facility] Dec 03, 2023 07:30 AM AMBULATORY - REHAB MEDICIN E [facility] [place] [facility] Dec 09, 2023 08:15 AM AMBULATORY - REHAB MEDICIN E [facility] [place] [facility] Dec 15, 2023 01:00 PM AMBULATORY - REHAB MEDICIN E [facility] [place] [facility] Active, Pending, and Scheduled Orders This section [...] Order BASIC METABOLIC PANEL (fasting) BLOOD (SST-SERUM) [facility] May 14, 2023 12:00 AM Laboratory - Chemi stry Order LIVER FUNCTION BLOOD (SST-SERUM) [facility] May 14, 2023 12:00 AM Laboratory - Chemi stry Order LIPID PANEL FASTING BLOOD (SST-SERUM) [facility] May 14, 2023 12:00 AM Laboratory - Chemi stry Order HEMOGLOBIN A1C PANEL BLOOD (LAV-BLOOD) [facility] May 14, 2023 12:00 AM Laboratory - Chemi stry Order CBC AND DIFF (AUTO) BLOOD (LAV-BLOOD) [facility] May 14, 2023 12:00 AM Laboratory - Chemi stry Order TSH BLOOD (SST-SERUM) [facility] Lab Results: +/- 30 days of the [...] Range Comment Jun 24, 2023 06:38 AM [facility] FOLATE (WROX) Specimen Type: SERUM No comment entered. Ordering Provider: REAGAN MÁRQUEZ Report Released Date/Time: Jun 23, 2023 11:15 AM Reporting Lab: [facility] [place] [facility] [address] [facility] [address] Performing Lab: [facility] [address] [facility] [address] FOLATE (WROX) 17.13 ng/mL >5.2 Jun 24, 2023 06:38 AM [facility] HEMOGLOBIN A1C PANEL Specimen Type: BLOOD [...] Jun 23, 2023 11:15 AM Reporting Lab: [facility] [address] [facility] [address] Performing Lab: [facility] [address] HEMOGLOBIN A1C 5.3 4.0-5.6 Jun 24, 2023 06:38 AM [facility] VITAMIN B12 Specimen Type: SERUM No comment entered. Ordering Provider: REAGAN MÁRQUEZ Report Released Date/Time: Jun 23, 2023 11:15 AM Reporting Lab: [facility] [address] [facility] [address] Performing Lab: [facility] [address] VITAMIN B12 647 pg/mL 200-900 Jun 24, 2023 06:38 AM [facility] LIPID PANEL FASTING Specimen Type: SERUM No comment entered. Ordering Provider: REAGAN MÁRQUEZ Report Released Date/Time: Jun 23, 2023 11:15 AM Reporting Lab: [facility] [address] [facility] [address] Performing Lab: [facility] [address] [facility] [address] CHOLESTEROL 181 mg/dL TRIGLYCERIDE 180 mg/dL H 0-150 LDL calculated 106 mg/dL 0-129 CHOL/HDL 4.6 HDL CHOLESTEROL 39 mg/dL L 40-60 Jun 24, 2023 06:38 AM [facility] TSH Specimen Type: SERUM No comment entered. Ordering Provider: REAGAN MÁRQUEZ Report Released Date/Time: Jun 23, 2023 11:15 AM Reporting Lab: [facility] [address] [facility] [address] Performing Lab: [facility] [address] [facility] [address] TSH 2.11 u[IU]/mL 0.35-5.00 Jun 22, 2023 06:30 AM [facility] LIVER FUNCTION Specimen Type: SERUM No comment entered. Ordering Provider: DONA KIM Report Released Date/Time: Jun 21, 2023 06:07 PM Reporting Lab: [facility] [address] [facility] [address] Performing Lab: [address] [address] PROTEIN,TOTAL 7.3 g/dL 6.0-8.3 ALBUMIN 4.1 g/dL 3.5-5.0 ALKALINE PHOSPHATASE 80 U/L 40-150 AST 23 U/L 5-34 ALT 39 U/L BILIRUBIN, TOTAL 0.9 mg/dL 0.2-1.2 Jun 21, 2023 03:49 PM [facility] COVID-19 MONITOR PANEL (CEPHEID) Specimen Type: NASOPHARYNX Comment: This test is authorized for emergency use only. False negative results may occur if virus is present at levels below the analytical limit of detection.Neg ative results do not preclude SARS-CoV-2 infection and should not be used as the sole basis for treatment or other patient management decisions.Cep heid FLUVID: HCPs: https://www.[facility] [place].gov/media/ 067086/downlo ad. Patients: https://www. [place].gov/media/ 000860/downlo ad Ordering Provider: DIEGO MEJIAS Report Released Date/Time: Jun 21, 2023 03:18 PM Reporting Lab: [facility] [address] [facility] [address] Performing Lab: [address] [address] COVID-19 JARED (CEPHEID) NEGATIVE Negative Jun 21, 2023 03:29 PM [facility] ETHANOL Specimen Type: PLASMA No comment entered. Ordering Provider: DIEGO MEJIAS Report Released Date/Time: Jun 21, 2023 03:18 PM Reporting Lab: [facility] [address] [facility] [address] Performing Lab: [facility] [address] ETHANOL <10 mg/dL Jun 21, 2023 03:29 PM [facility] LIVER FUNCTION Specimen Type: SERUM No comment entered. Ordering Provider: DIEGO MEJIAS Report Released Date/Time: Jun 21, 2023 03:18 PM Reporting Lab: [facility] [address] Performing Lab: [facility] [address] PROTEIN,TOTAL 8.1 g/dL 6.0-8.3 ALBUMIN 4.7 g/dL 3.5-5.0 ALKALINE PHOSPHATASE 83 U/L 40-150 AST 31 U/L 5-34 ALT 47 U/L BILIRUBIN, TOTAL 0.9 mg/dL 0.2-1.2 Jun 21, 2023 03:29 PM [facility] BASIC METABOLIC PANEL (non-fasting) Specimen Type: SERUM No comment entered. Ordering Provider: DIEGO MEJIAS Report Released Date/Time: Jun 21, 2023 03:18 PM Reporting Lab: [address] [address] Performing Lab: [address] [address] UREA NITROGEN 20 mg/dL 7-25 GLUCOSE 100 mg/dL 65-100 SODIUM 139 mmol/L 135-145 POTASSIUM 4.2 mmol/L 3.5-5.0 CHLORIDE 101 mmol/L 100-110 CO2 26 meq/L 20-30 CREATININE, Serum 0.85 mg/dL 0.50-1.40 eGFR(CKD-EPI 2020) >90 mL/min >60 Jun 21, 2023 03:29 PM [facility] DRUGS OF ABUSE Specimen Type: URINE [...] Jun 21, 2023 03:18 PM Reporting Lab: [address] [address] Performing Lab: [address] [address] AMPHETAMINES SCREEN NONE-DETECTED None-Detec josefina, Cutoff = [...] 3-1.02 0 Jun 21, 2023 03:29 PM [facility] CBC AND DIFF (AUTO) Specimen Type: BLOOD No comment entered. Ordering Provider: DIEGO MEJIAS Report Released Date/Time: Jun 21, 2023 03:18 PM Reporting Lab: [facility] [address] [facility] [address] Performing Lab: [address] [address] WBC 8.46 10*3/uL 4.50-11.00 RBC 5.43 10*6/uL 4.23-5.66 HGB 16.3 g/dL 12.8-17 HCT 47.5 39.2-50.4 MCV 87.5 fL 82-99 MCHC 34.3 g/dL 30.8-35.1 PLT 323 10*3/uL 140-360 RDW-CV 12.8 12.0-16.0 [place], Abs 0.80 10*3/uL 0.30-1.10 MCH 30.0 pg 26.2-32.6 Neut % 63.0 43.7-75.8 Lymph % 25.2 14.0-42.3 [place] % 9.5 5.1-13.7 Eos % 1.1 0.4-6.8 [...] Height Weight Body Mass Index Source Jun 23, 2023 09:07 PM 6 [place] [facility] [facility] Jun 23, 2023 04:00 PM 97.9 65 143/90 18 95 [place] [facility] [facility] Jun 23, 2023 08:55 AM 96.8 68 114/70 18 97 [place] [facility] [facility] Jun 23, 2023 06:15 AM 98.1 65 129/81 16 97 [place] [facility] [place] [facility] Jun 23, 2023 12:23 AM 97.9 64 138/93 16 97 [facility] Advance Directives: All historical and current Section [...] DISCUSSION AMAYA FRANZ [place] [facility] [place] [facility] Aug 06, 2017 ADVANCE DIRECTIVE ABDIRASHID [place] [facility] Encounter Notes: All associated encounter notes This section contains the clinical notes associated to the Encounter. Date/Time Encounter Note(s) Provider Source Jun 23, 2023 04:00 PM PSYCHIATRY GROUP [place] CARL NOTE: LOCAL TITLE: PSYCHOLOGY GROUP NOTE STANDARD TITLE: PSYCHIATRY GROUP COUNSELING NOTE DATE OF NOTE: JUN 23, 2023@16:00 ENTRY DATE: JUN 23, 2023@16:00:14 AUTHOR: KALIE AGOSTO COSIGNER: URGENCY: STATUS: COMPLETED Group Psychotherapy Title: Overcoming bad habits Page Technician: Kalie Agosto PsyD Members: 7 Veterans Time: 30 minutes Learning Format: Group Psychotherapy, including psychoeducation First, a humorous video to demonstrate the antithesis to Motivational Interviewing was shown (Salvador Hurd in Stop it!). Next, a video by Dr. Marjan Pelayo MD, PhD at [facility], called Hacking Your Brains Reward System to Change Habits which acknowledges the struggle our brains have to make to break bad habits (such as substance use, or over-eating). The neuroscience behind this struggle, and how to hack the reward system in the brain to get it to do the work for you to replace a bad habit with a healthy one, is shared. Reward values are presented and awareness of the decrease of the award value over time is darnell. Some discussion about how the reward value of our bad habits can be reduced, by increasing awareness of all of the negative aspects, took place. Risk/safety: Based on the current session there is no evidence of the [place] being in imminent danger to self or others. Group Goal: To provide education about the neuroscience of addiction, and elicit hope in changing bad habits Procedure: Group Psychotherapy, including psychoeducation Plan: [place] will continue to attend groups daily for the 's duration on this unit Participation: Mr. Murphy was attentive and spoke about how he had a very hard time limiting his drinking. He is aware that he looked ill when he was drinking too much, and he saw a picture of himself one time, and it was apparent how much he was negatively affecting his health. Diagnoses: Primary Admits alcohol use (SCT 047791338) - Other problems related to lifestyle (ICD-10-CM Z72.89) Secondary Major depressive disorder (SCT 391186386) - Major depressive disorder, single episode, unspecified (ICD-10-CM F32.9) Procedures: Group Psychotherapy Related to: Service Connected Condition /es/ KALIE AGOSTO PSY.D. STAFF PSYCHOLOGIST Signed: 06/23/2023 16:35 [facility]STOL [facility]
--- OUTSIDE RECORDS SUMMARY | 2024-06-06 17:57 | XMS_ITS ---
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 Name Role Phone ARIANNE CHERY Primary Care [...] Name Patient's Relationship to Policy [facility] [employer] Aug 29, 2017 [id number] Kathy ESTRADA [facility] Mar 01, 2014 [id number] [phone] Kathy ESTRADA SPOUSE MEDICARE (WNR) MEDICARE (M) PART A Sep 29, 2020 PART A [id number] [place] ESTRADA PATIENT MEDICARE (WNR) MEDICARE (M) PART A Sep 29, 2020 PART A [id number] [facility] [place] ESTRADA PATIENT Selected Encounter This section includes the information on record at [place] for the Encounter. Date/Time Encounter Type Encounter Description Reason Provider Source Dec 15, 2023 01:00 PM THERAPEUTIC EXERCISES PHYSICAL THERAPY ICD-10-CM M54.2 Cervicalgia GERMAIN HEMPHILL IN [place] Encounter Template Text not used by [facility] Assessments - Encounter Diagnoses This section includes the primary and secondary diagnoses documented for the Encounter. Date/Time Primary/Secondary Diagnosis Diagnosis Name Provider Source Dec 15, 2023 02:58 PM PRIMARY Cervicalgia ROSALINE HEMPHILL N [facility] [place] [facility] Plan of Treatment: Future Appointments (+ 6 months) and Future Tests (+/- 45 days) The Plan of Treatment section includes future care activities for the patient from all [place] treatmentfacilities. This section includes future appointments and future orders which are active, pending or scheduled. Future Appointments This section includes appointments that were scheduled to occur 6 months from the date of the Encounter, up to a maximum of 20 appointments. The data comes from all [place] treatment facilities. Appointment Date/Time Appointment Type Appointme nt Facility Name Dec 24, 2023 03:00 PM AMBULATORY - [facility]IATRY [facility] [place] [facility] Dec 31, 2023 02:30 PM AMBULATORY - REHAB MEDICIN E [facility] [place] [facility] Jan 17, 2024 08:30 AM AMBULATORY - MEDICINE [facility] [place] [facility] Jan 17, 2024 09:45 AM AMBULATORY - MEDICINE [facility] [place] [facility] Feb 17, 2024 03:30 PM AMBULATORY - PSYCHIATRY [facility] [place] [facility] Mar 23, 2024 08:00 AM AMBULATORY - MEDICINE [facility] [place] [facility] Apr 04, 2024 09:30 AM AMBULATORY - REHAB MEDICIN E [facility] [place] [facility] Apr 05, 2024 03:30 PM AMBULATORY - PSYCHIATRY [facility] [place] [facility] May 03, 2024 10:00 AM [facility] May 18, 2024 08:30 AM AMBULATORY - NONE [facility] [place] [facility] Jun 01, 2024 01:00 PM AMBULATORY - MEDICINE [facility] [place] [facility] Jun 08, 2024 03:30 PM AMBULATORY - PSYCHIATRY [facility] [place] [facility] Active, Pending, and Scheduled Orders This section includes a listing of several types of active, pending, and scheduled orders, including clinic medications orders, diagnostic test orders, procedure orders and consult orders; where the start date of the order is 45 days before the date of the Encounter or 45 days after the date of theEncounter. The data comes from all [place] treatment facilities. Test Date/Time Test Type Test Details Facility Name Jan 13, 2024 12:00 AM Laboratory - Chemi stry Order BASIC METABOLIC PANEL (non-fasting) BLOOD (SST-SERUM) [facility] Advance Directives: All historical and current Section Date Range: From patient's date of to the date document was created. This section includes ALL of a patient's completed or amended CT Advance and Rescinded Directives. The entries below indicate that a directive exists for the patient, but an actual copy is not included with this document. The data comes from all [place] facilities. Date Advance Directives Provider Source Jun 25, 2023 ADVANCE DIRECTIVE DISCUSSION AMAYA FRANZ [facility] Aug 06, 2017 ADVANCE DIRECTIVE ABDIRASHID [facility] Encounter Notes: All associated encounter notes This section contains the clinical notes associated to the Encounter. Date/Time Encounter Note(s) Provider Source Dec 15, 2023 02:51 PM PHYSICAL THERAPY NOTE: LOCAL TITLE: PHYSICAL THERAPY STANDARD TITLE: PHYSICAL THERAPY NOTE DATE OF NOTE: DEC 15, 2023@14:51 ENTRY DATE: DEC 15, 2023@14:51:13 AUTHOR: LEXI HEMPHILL COSIGNER: URGENCY: STATUS: COMPLETED Initial Evaluation date: 11/25/23 Progress Note Date: Treatment #: 3 Treatment time: 30' Diagnosis: Cervicalgia Provider: Rc PT Treatment Precautions: Aflutter Patient identified by full name and date of SUBJECTIVE: States that he feels that he's making some progress, waking up with no pain but by the end of the day, he's sore, also stated that when he gets up from the recliner, he feels some type of pulling or something from the neck all the way down into his leg, no numbness, or pain in his LB area OBJECTIVE: discussed with primary PT the symptoms of the pulling from the neck down to the leg, she suggested cat/cow, HS S, THERAPEUTIC EXERCISE: MINUTES: 15 mins UBE 6 mins L2, 3 mins F/G shld flexion S with tball on table cat/cow S in quadruped HS S in supine with towel LTR in hooklying with opposite shld flexion UT S MANUAL THERAPY: MINUTES: 15 mins DTM/TPR scalenes, UT, Lev scap SCS scalenes, pos cerv GAIT TRAINING: MINUTES: NEUROMUSCULAR EDUCATION: MINUTES: OTHER: MINUTES: MODALITIES: MINUTES: [] Contraindication screen completed prior to modality [] Skin intact pre/post SELF CARE/EDUCATION: MINUTES: Patient education was provided for all aspects of care during this clinical encounter. ASSESSMENT: Tolerated session well, felt ok after session, but still felt some tightness in the UT muscle. PLAN: 1-4 more visits NAGS and SNAGS next visit Soft tissue work deep neck flexor strengthening stretching- pecs, postural as well as cervical NAGS and SNAGS modalities for pain postural stab pt ed HEP /es/ CONNIE CHRISTINA LICENSE [employer] Signed: 12/15/2023 14:59 LEXI HEMPHILL [facility]
--- OUTSIDE RECORDS SUMMARY | 2024-06-06 17:57 | XMS_ITS ---
Author Name [facility] Address [address] [place] [id number] Care Team Providers Care Chute Tender Name Role Phone ARIANNE CHERY Primary Care [...] Name Patient's Relationship to Policy [facility] CE ORGANESPERANZA GI STATE [employer] Y Aug 29, 2017 [id number] [id number] Kathy ESTRADA [facility] CE ORGANIZ COMMO [facility] Mar 01, 2014 [id number] [phone] Kathy ESTRADA SPOUSE MEDICARE (WNR) MEDICARE (M) PART A Sep 29, 2020 PART A [id number] [facility] [phone] Guanakito ESTRADA PATIENT MEDICARE (WNR) MEDICARE (M) PART A Sep 29, 2020 PART A [id number] [phone] Guanakito ESTRADA PATIENT Selected Encounter This section includes the information on record at [place] for the Encounter. Date/Time Encounter Type Encounter Description Reason Provider Source Aug 27, 2023 11:30 AM INTRM OPH EXAM EST PATIENT OPTOMETRY ICD-10-CM 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, left eye, with actv chrdl neoJESUS Rios IHE Encounter Template Text not used by [place] Assessments - Encounter Diagnoses This section includes the primary and secondary diagnoses documented for the Encounter. Date/Time Primary/Secondary Diagnosis Diagnosis Name Provider Source Aug 27, 2023 12:13 PM PRIMARY Exdtve age-rel mclr degn, left eye, with actv chrdl JESUS Peters [facility] [place] [facility] Aug 27, 2023 12:13 PM SECONDARY Combined forms of age-related cataract, bilateral JESUS RITCHIE [facility] [place] [facility] Plan of Treatment: Future Appointments (+ 6 months) and Future Tests (+/- 45 days) The Plan of Treatment section includes future care activities for the [facility] This section includes future appointments and future orders which are active, pending or scheduled. Future Appointments This section includes appointments that were scheduled to occur 6 months from the date of the Encounter, up to a maximum of 20 appointments. The data comes from all [place] treatment facilities. Appointment Date/Time Appointment Type Appointme nt Facility Name Sep 14, 2023 09:30 AM AMBULATORY - MEDICINE [facility] [place] [facility] Sep 17, 2023 03:30 PM AMBULATORY - PSYCHIATRY [facility] [place] [facility] Oct 05, 2023 01:00 PM AMBULATORY - MEDICINE [facility] [place] [facility] Oct 14, 2023 02:00 PM AMBULATORY - NONE [facility] [place] [facility] Nov 12, 2023 03:30 PM AMBULATORY - PSYCHIATRY [facility] [place] [facility] Nov 25, 2023 07:30 AM AMBULATORY - REHAB MEDICIN E [facility] [place] [facility] Nov 25, 2023 08:30 AM AMBULATORY - PSYCHIATRY [facility] [place] [facility] Nov 25, 2023 11:00 AM AMBULATORY - MEDICINE [facility] Dec 03, 2023 07:30 AM AMBULATORY - REHAB MEDICIN E [facility] [place] [facility] Dec 09, 2023 08:15 AM AMBULATORY - REHAB MEDICIN E [facility] [place] [facility] Dec 15, 2023 01:00 PM AMBULATORY - REHAB MEDICIN E [facility] [place] [facility] Dec 24, 2023 03:00 PM AMBULATORY - PSYCHIATRY [facility] [place] [facility] Dec 31, 2023 02:30 PM AMBULATORY - REHAB MEDICIN E [facility] [place] [facility] Jan 17, 2024 08:30 AM AMBULATORY - MEDICINE [facility] [place] [facility] Jan 17, 2024 09:45 AM AMBULATORY - MEDICINE [facility] [place] [facility] Feb 17, 2024 03:30 PM AMBULATORY - PSYCHIATRY [facility] [place] [facility] Active, Pending, and Scheduled Orders This section includes a listing of several types of active, pending, and scheduled orders, including clinic medications orders, diagnostic test orders, procedure orders and consult orders; where the start date of the order is 45 days before the date of the Encounter or 45 days after the date of theEncounter. The data comes from all [place] treatment facilities. Test Date/Time Test Type Test Details Facility Name Aug 10, 2023 12:00 AM Laboratory - Chemi stry Order VITAMIN D (25-OH) BLOOD (SST-SERUM) [facility] Aug 10, 2023 12:00 AM Laboratory - Chemi stry Order MICROALBUMIN CREATININE RATIO PANEL URINE (RANDOM) [facility] Aug 10, 2023 12:00 AM Laboratory - Chemi stry Order LIPID PANEL FASTING BLOOD (SST-SERUM) [facility] Aug 10, 2023 12:00 AM Laboratory - Chemi stry Order BASIC METABOLIC PANEL (fasting) BLOOD (SST-SERUM) [facility] Aug 10, 2023 12:00 AM Laboratory - Chemi stry Order LIVER FUNCTION BLOOD (SST-SERUM) [facility] Aug 10, 2023 12:00 AM Laboratory - Chemi stry Order CBC AND DIFF (AUTO) BLOOD (LAV-BLOOD) [facility] Aug 10, 2023 12:00 AM Laboratory - Chemi stry Order HEMOGLOBIN A1C PANEL BLOOD (LAV-BLOOD) [facility] Aug 10, 2023 12:00 AM Laboratory - Chemi stry Order TSH BLOOD (SST-SERUM) [facility] Lab Results: +/- 30 days of the encounter This section includes the Chemistry and Hematology Lab Results on record with [place] for the patient. Radiology Reports and Pathology Reports are provided separately, in subsequent sections. Lab Results This section contains the Chemistry/Hematology Results that were resulted 30 days before or 30 daysafter the date of the Encounter. Date/Time Source Result Type Result - Unit Interpretation Reference Range Comment Sep 09, 2023 07:34 AM [facility] LIPID PANEL FASTING Specimen Type: SERUM No comment entered. Ordering Provider: VALERIE GARCIA Report Released Date/Time: Oct 06, 2022 01:18 PM Reporting Lab: [address] [address] Performing Lab: [address] [address] CHOLESTEROL 187 mg/dL TRIGLYCERIDE 138 mg/dL 0-150 LDL calculated 121 mg/dL 0-129 CHOL/HDL 4.9 HDL CHOLESTEROL 38 mg/dL L 40-60 Sep 09, 2023 07:34 AM [facility] HEMOGLOBIN A1C PANEL Specimen Type: BLOOD [...] Oct 06, 2022 01:18 PM Reporting Lab: [address] [address] Performing Lab: [address] [address] HEMOGLOBIN A1C 5.2 4.0-5.6 Sep 09, 2023 07:34 AM [facility] BASIC METABOLIC PANEL (fasting) Specimen Type: SERUM No comment entered. Ordering Provider: VALERIE GARCIA Report Released Date/Time: Oct 06, 2022 01:18 PM Reporting Lab: [facility] [address] [address] Performing Lab: [address] [address] UREA NITROGEN 13 mg/dL 7-25 GLUCOSE 101 mg/dL H 65-100 SODIUM 137 mmol/L 135-145 POTASSIUM 4.6 mmol/L 3.5-5.0 CHLORIDE 105 mmol/L 100-110 CO2 23 meq/L 20-30 CREATININE, Serum 0.86 mg/dL 0.50-1.40 eGFR(CKD-EPI 2020) >90 mL/min >60 Sep 09, 2023 07:34 AM [facility] LIVER FUNCTION Specimen Type: SERUM No comment entered. Ordering Provider: VALERIE GARCIA Report Released Date/Time: Oct 06, 2022 01:18 PM Reporting Lab: [address] [address] Performing Lab: [address] [address] PROTEIN,TOTAL 7.2 g/dL 6.0-8.3 ALBUMIN 4.2 g/dL 3.5-5.0 ALKALINE PHOSPHATASE 70 U/L 40-150 AST 17 U/L 5-34 ALT 19 U/L BILIRUBIN, TOTAL 0.9 mg/dL 0.2-1.2 Sep 09, 2023 07:34 AM [facility] TSH Specimen Type: SERUM No comment entered. Ordering Provider: VALERIE GARCIA Report Released Date/Time: Oct 06, 2022 01:18 PM Reporting Lab: [address] [address] Performing Lab: [address] [address] TSH 1.02 u[IU]/mL 0.35-5.00 Sep 09, 2023 07:34 AM [facility] PSA Specimen Type: SERUM No comment entered. Ordering Provider: VALERIE GARCIA Report Released Date/Time: Oct 06, 2022 01:18 PM Reporting [facility]: [facility] [address] [address] Performing Lab: [facility] [address] [address] PSA 1.33 ng/mL 0.00-4.00 Sep 09, 2023 07:34 AM [facility] MICROALBUMIN CREATININE RATIO PANEL Specimen Type: URINE No comment entered. Ordering Provider: VALERIE GARCIA Report Released Date/Time: Oct 06, 2022 01:19 PM Reporting Lab: [facility] [address] [address] Performing Lab: [address] [address] MICROALBUMIN/C REATININE RATIO 11.5 mg/g 0-29.9 MICROALBUMIN,Q UANTITATIVE 1.1 mg/dL RR UNAVAIL CREATININE URINE 95.90 mg/dL Sep 09, 2023 07:34 AM [facility] CBC AND DIFF (AUTO) Specimen Type: BLOOD No comment entered. Ordering Provider: VALERIE GARCIA Report Released Date/Time: Oct 06, 2022 01:18 PM Reporting Lab: [facility] [address] [facility] [address] Performing Lab: [address] [address] WBC 5.88 10*3/uL 4.50-11.00 RBC 5.14 10*6/uL [...] ALL of a patient's completed or amended [place] Advance and Rescinded Directives. The entries below indicate that a directive exists for the patient, but an actual copy is not included with this document. The data comes from all [place] facilities. Date Advance Directives Provider Source Jun 25, 2023 ADVANCE DIRECTIVE DISCUSSION AMAYA FRANZ [facility] [place] [facility] Aug 06, 2017 ADVANCE DIRECTIVE ABDIRASHID [facility] Radiology Reports: +/- 30 days of [...] the Encounter. The data comes from all [place] treatment facilities. Date/Time Radiology Report Provider Source Sep 17, 2023 02:56 PM SPINE CERVICAL, 4 OR 5 VIEWS: EMA ESTRADA [id number] -[id number] M Exm Date: SEP 17, 2023@14:56 Req Phys: JOSE,LAZARO Pat Loc: [facility]/SO/PACT 9 (Req'g Loc) Img Loc: [facility]/BUILDING 1 Service: Unknown [facility] , (Case [id number] COMPLETE) SPINE CERVICAL, 4 OR 5 VIEWS (RAD Detailed) CPT:79215 Reason for Study: neck pain Clinical History: Report Status: Verified Date Reported: SEP 17, 2023 Date Verified: SEP 17, 2023 Assistant Professor In Family Studies E-Sig:/ES/MAVERICK SANCHEZ JR Report: Study: AP, lateral [...] Primary Interpreting Staff: MAVERICK SANCHEZ JR, Radiologist (Assistant Professor In Family Studies) /MAVERICK DU JR [facility] Encounter Notes: All associated encounter notes This section contains the clinical notes associated to the Encounter. Date/Time Encounter Note(s) Provider Source Dec 10, 2023 07:49 AM ADDENDUM: LOCAL TITLE: Addendum STANDARD TITLE: ADDENDUM DATE OF NOTE: DEC 10, 2023@07:49:06 ENTRY DATE: DEC 10, 2023@07:49:07 AUTHOR: DEAN GODOY EXP COSIGNER: URGENCY: STATUS: COMPLETED Pt seen 11/19/[address] Peng at [facility]. Noted is wet AMD with persistent CME OS. Pt failed Avastin and Lucentis so Eylea given. Followup there in 4 weeks. [facility] OD 20/20-1 OS 20/40. Dry AMD noted OD. Next followup here July 2024. /brenda/ Dean Godoy OD Fee Basis Physical Security Engineer Signed: 12/10/2023 07:50 Receipt Acknowledged By: 12/15/2023 08:27 /brenda/ JESUS RITCHIE OD STAFF TATTOO AND BODY ARTIST --- Original Document --- 08/27/23 OPTOMETRY NOTE: Active problems - Computerized Problem List is the source for the followin. Alcohol dependence 2. Atrial flutter 3. Long-term current use of anticoagulant 4. Admits alcohol use 5. Steatosis of liver 6. Hypertension 7. Attention deficit hyperactivity disorder, predominantly inattentive type 8. Impaired fasting glucose 9. Cataract, Unspecified 10. Degenerative joint disease 11. Major depressive disorder Active Outpatient Medications (including Supplies): Active Outpatient [...] 7 DAYS; MAX USE 12 MONTHS 6) LISINOPRIL 10MG TAB TAKE ONE TABLET BY MOUTH ONCE ACTIVE DAILY TO CONTROL BLOOD PRESSURE 7) METOPROLOL [...] SULFATE) CAP 220MG BY MOUTH ACTIVE DAILY 16 Total Medications Allergies: Patient has answered NKA All medications including those prescribed by outside VA's, community providers, and all OTC meds were reviewed and reconciled with patient to the best of their abilities. This 67 year old MALE is seen today for follow-up exam. Chief Complaint: Pt states that he went to [facility] and he has since received three injections, every 29-30 days. Vision has improved but not significantly. Upcoming appt scheduled for next injeciton is August, date unknown. Denies pain, burning, itching OU. Pt still interested in cataract sx but understands that the OS needs to be stabilized before that can happen. States that he has intermittent blur OU. No pertinent family hx reported today. 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 Cataracts OU H/O metallic FB 2007 Refractive error and presbyopia OU (-) Pain: (-) HUMPHREY: (-) Diplopia: (+) Flashes: one instance of flash OS (+) Floaters: lonmgstanding and stable (-) Amaurosis Fugax/Tia's: (+) Eye Injury: metallic FB 2007 (-) Eye Surgery: (-) TBI FOHx: (-) Glaucoma/ARMD/Blindness VITALS (most recent, as listed in the electronic record): B/P: 110/75 (06/28/2023 08:26) Pulse: 63 (06/28/2023 08:26) Temperature: 97.4 F [36.3 C] (06/28/2023 08:26) Weight: 225.8 lb [102.42 kg] (06/21/2023 15:12) Height: 74 in [188.0 cm] (03/26/2023 13:12) BMI: BMI: 29.1 PERTINENT LABS: HEMOGLOBIN A1C TREND Collection DT Spec HGBA1c 06/24/2023 07:00 BLOOD 5.3 10/06/2022 14:10 BLOOD 5.1 07/08/2021 07:56 BLOOD 5.3 09/13/2020 07:22 BLOOD 5.0 04/12/2019 07:00 BLOOD 5.1 (-) Smoker/Length of Time/PPD: Current Rx with last BCVA: OD: -2.75 -0.75 x 160 20/20 OS: -1.75 -1.75 x 065 20/20-1 Add: +2.50 Int add: +1.50 DVA ( )sc ( x )cc phoropter OD: 20/20 OS: 20/20-1 slow Pupils: PERRL (-)APD EOMs: SAFE OU, (-)Pain/Diplopia CVF (facial, peripheral): FTFC OU All the above performed by student, reviewed by attending Anterior segment: Performed by student, repeated by attending * Lids: dermatochalasis OU, 1+ bleph OU Conj: trace injection OU Cornea: clear OU AC: 3/4 T&N OU, AC quiet OU Iris: flat and clear OU Lens: 2+NS with trace ACC OU, central vacuoles OS Tonometry: Performed by student, reviewed by attending * OD 12 mmHg OS 12 mmHg Time: 11:51am Fundus exam: no dilation indicated for today's exam Performed by student, repeated by attending * Vit: clear OU C/D: 0.30/0.30 OD, 0.30/0.30 OS Disc: OD: pink and distinct OS: pink and distinct Macula: OD: flat and clear OS: 1 small drusen and central pigment disruption PPole: OD: clear OS: clear Vessels: OD: 2/3 OS: 2/3 Periph: flat and intact (-)holes, tears, detachments 360 OU Assessment/Plan: 1. 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 Combined-form cataracts OU -pt bothered by glare -low impact to visual acuity OU -defer referral for CE/PCIOL consult until retinal pathology resolved OS -continue to monitor at CEE 3. Myopia with astigmatism and presbyopia OU -no refraction indicated today -monitor at CEE Return to Clinic 1 year or earlier PRN Education: After discussion and answering all 's questions, demonstrated and verbalized understanding of diagnosis and treatment. Yes [ ] No [ ] Patient Education: Macular Degeneration: Patient was educated regarding macular degeneration including both wet and dry varieties as well as the natural history and prognosis of this condition. Education included the role of amsler grid testing , ocular nutraceutical therapy as well as diet and healthy lifestyle choices when applicable. Exclusion criteria includes extremely reduced acuity or cognitive decline for amsler grid testing and other coexisting systemic contraindication for supplements, diet and exercise. Medication Reconciliation: Outpatient: Has the patient been taking medications as documented in the EMLR? YES: The patient has been taking medications as documented in the EMLR. Essential Medication List for Review used to complete this medication reconciliation. INCLUDED IN THIS LIST: Alphabetical list of active outpatient prescriptions dispensed from this [facility] (local) and dispensed from another VA or [facility] facility (remote) as well as inpatient orders [...] with a VA or non-VA provider. /brenda/ ADILENE FORDE OPTOMETRY STUDENT Signed: 08/27/2023 12:22 /brenda/ JESUS RITCHIE OD STAFF TATTOO AND BODY ARTIST Cosigned: 08/27/2023 12:35 11/12/2023 ADDENDUM STATUS: COMPLETED Progress noted from [facility] for 10/21/23 visit. Pt had IV Lucentis OS and had followup there in 4 weeks. OD noted as dry AMD. /brenda/ Dean Godoy OD Fee Basis Physical Security Engineer Signed: 11/12/2023 12:19 DEAN GODOY [facility] [place] [facility] Aug 27, 2023 12:11 PM OPTOMETRY NOTE: LOCAL TITLE: OPTOMETRY NOTE(T) STANDARD TITLE: OPTOMETRY NOTE DATE OF NOTE: AUG 27, 2023@12:11 ENTRY DATE: AUG 27, 2023@12:11:52 AUTHOR: JESUS RITCHIE EXP COSIGNER: URGENCY: STATUS: COMPLETED I saw this patient in conjunction with the student and agree to the stated findings and plan after reviewing both history and repeating darnell elements of physical exam. Patient presents for follow-up well-known to me with history of exudative AMD OS with injections. Patient is still being followed by [facility]. Acuity is better OS today. The patient will return in 12 months or sooner if any problems arise. We will monitor cataracts and retina at that time with dilated fundus exam. /brenda/ JESUS RITCHIE OD STAFF TATTOO AND BODY ARTIST Signed: 08/27/2023 12:13 JESUS RITCHIE [facility] [place] [facility] Aug 27, 2023 11:19 AM OPTOMETRY NOTE: LOCAL TITLE: OPTOMETRY NOTE STANDARD TITLE: OPTOMETRY NOTE DATE OF NOTE: AUG 27, 2023@11:19 ENTRY DATE: AUG 27, 2023@11:19:17 AUTHOR: ADILENE FORDE EXP COSIGNER: JESUS RITCHIE URGENCY: STATUS: COMPLETED OPTOMETRY NOTE Has ADDENDA Active problems - Computerized Problem List is the source for the followin. Alcohol dependence 2. Atrial flutter 3. Long-term current use of anticoagulant 4. Admits alcohol use 5. Steatosis of liver 6. Hypertension 7. Attention deficit hyperactivity disorder, predominantly inattentive type 8. Impaired fasting glucose 9. Cataract, Unspecified 10. Degenerative joint disease 11. Major depressive disorder Active Outpatient Medications (including Supplies): Active Outpatient [...] 7 DAYS; MAX USE 12 MONTHS 6) LISINOPRIL 10MG TAB TAKE ONE TABLET BY MOUTH ONCE ACTIVE DAILY TO CONTROL BLOOD PRESSURE 7) METOPROLOL [...] 1000MG BY ACTIVE MOUTH DAILY 3) Non-VA HOAM CAP/TAB DOSE UNKNOWN BY MOUTH ONCE ACTIVE DAILY 4) Non-VA MULTIVITAMIN CAP/TAB 1 TABLET BY MOUTH ONCE ACTIVE DAILY 5) Non-VA OTHER CAP/TAB MEDIUM CHAIN TRIGLYCERIDES BY ACTIVE MOUTH ONCE DAILY 6) Non-VA OTHER CAP/TAB PLANT PROTEIN BY MOUTH ONCE ACTIVE DAILY 7) Non-VA ZINC 50MG (FROM SULFATE) CAP 220MG BY MOUTH ACTIVE DAILY 16 Total Medications Allergies: Patient has answered NKA All medications including those prescribed by outside VA's, community providers, and all OTC meds were reviewed and reconciled with patient to the best of their abilities. This 67 year old MALE is seen today for follow-up exam. Chief Complaint: Pt states that he went to [facility] and he has since received three injections, every 29-30 days. Vision has improved but not significantly. Upcoming appt scheduled for next injeciton is August, date unknown. Denies pain, burning, itching OU. Pt still interested in cataract sx but understands that the OS needs to be stabilized before that can happen. States that he has intermittent blur OU. No pertinent family hx reported today. 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 Cataracts OU H/O metallic FB 2007 Refractive error and presbyopia OU (-) Pain: (-) HUMPHREY: (-) Diplopia: (+) Flashes: one instance of flash OS (+) Floaters: lonmgstanding and stable (-) Amaurosis Fugax/Tia's: (+) Eye Injury: metallic FB 2007 (-) Eye Surgery: (-) TBI FOHx: (-) Glaucoma/ARMD/Blindness VITALS (most recent, as listed in the electronic record): B/P: 110/75 (06/28/2023 08:26) Pulse: 63 (06/28/2023 08:26) Temperature: 97.4 F [36.3 C] (06/28/2023 08:26) Weight: 225.8 lb [102.42 kg] (06/21/2023 15:12) Height: 74 in [188.0 cm] (03/26/2023 13:12) BMI: BMI: 29.1 PERTINENT LABS: HEMOGLOBIN A1C TREND Collection DT Spec HGBA1c 06/24/2023 07:00 BLOOD 5.3 10/06/2022 14:10 BLOOD 5.1 07/08/2021 07:56 BLOOD 5.3 09/13/2020 07:22 BLOOD 5.0 04/12/2019 07:00 BLOOD 5.1 (-) Smoker/Length of Time/PPD: Current Rx with last BCVA: OD: -2.75 -0.75 x 160 20/20 OS: -1.75 -1.75 x 065 20/20-1 Add: +2.50 Int add: +1.50 DVA ( )sc ( x )cc phoropter OD: 20/20 OS: 20/20-1 slow Pupils: PERRL (-)APD EOMs: SAFE OU, (-)Pain/Diplopia CVF (facial, peripheral): FTFC OU All the above performed by student, reviewed by attending Anterior segment: Performed by student, repeated by attending * Lids: dermatochalasis OU, 1+ bleph OU Conj: trace injection OU Cornea: clear OU AC: 3/4 T&N OU, AC quiet OU Iris: flat and clear OU Lens: 2+NS with trace ACC OU, central vacuoles OS Tonometry: Performed by student, reviewed by attending * OD 12 mmHg OS 12 mmHg Time: 11:51am Fundus exam: no dilation indicated for today's exam Performed by student, repeated by attending * Vit: clear OU C/D: 0.30/0.30 OD, 0.30/0.30 OS Disc: OD: pink and distinct OS: pink and distinct Macula: OD: flat and clear OS: 1 small drusen and central pigment disruption PPole: OD: clear OS: clear Vessels: OD: 2/3 OS: 2/3 Periph: flat and intact (-)holes, tears, detachments 360 OU Assessment/Plan: 1. 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 Combined-form cataracts OU -pt bothered by glare -low impact to visual acuity OU -defer referral for CE/PCIOL consult until retinal pathology resolved OS -continue to monitor at CEE 3. Myopia with astigmatism and presbyopia OU -no refraction indicated today -monitor at CEE Return to Clinic 1 year or earlier PRN Education: After discussion and answering all 's questions, demonstrated and verbalized understanding of diagnosis and treatment. Yes [ ] No [ ] Patient Education: Macular Degeneration: Patient was educated regarding macular degeneration including both wet and dry varieties as well as the natural history and prognosis of this condition. Education included the role of amsler grid testing , ocular nutraceutical therapy as well as diet and healthy lifestyle choices when applicable. Exclusion criteria includes extremely reduced acuity or cognitive decline for amsler grid testing and other coexisting systemic contraindication for supplements, diet and exercise. Medication Reconciliation: Outpatient: Has the patient been taking medications as documented in the EMLR? YES: The patient has been taking medications as documented in the EMLR. Essential Medication List for Review used to complete this medication reconciliation. INCLUDED IN THIS LIST: Alphabetical list of active outpatient prescriptions dispensed from this [facility] (local) and dispensed from another [place] or [facility] facility (remote) as well as inpatient orders [...] with a VA or non-VA provider. /brenda/ ADILENE FORDE OPTOMETRY STUDENT Signed: 08/27/2023 12:22 /brenda/ JESUS RITCHIE OD STAFF TATTOO AND BODY ARTIST Cosigned: 08/27/2023 12:35 11/12/2023 ADDENDUM STATUS: COMPLETED Progress noted from [facility] for 10/21/23 visit. Pt had IV [facility] and had followup there in 4 weeks. OD noted as dry AMD. /brenda/ Dean Godoy OD Fee Basis Physical Security Engineer Signed: 11/12/2023 12:19 12/10/2023 ADDENDUM STATUS: COMPLETED Pt seen 11/19/[address] Peng at [facility]. Noted is wet AMD with persistent CME OS. Pt failed Avastin and Lucentis so Eylea given. Followup there in 4 weeks. [facility] OD 20/20-1 OS 20/40. Dry AMD noted OD. Next followup here July 2024. /brenda/ Dean Godoy OD Fee Basis Physical Security Engineer Signed: 12/10/2023 07:50 Receipt Acknowledged By: * AWAITING SIGNATURE * JESUS RITCHIE MARGARET MARY HI [facility]
--- OUTSIDE RECORDS SUMMARY | 2024-06-06 17:57 | XMS_ITS | Continuity of Care Document ---
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 It does not include entries that were removed or entered in error. Problem Status Onset Date Problem Type Date of Resolution Comments Source Melanoma in situ of back Active 06/02/19 25 Condition Jun 06, 2024 Entered By: SMILEY REED IN Comment: Path proven 06/01/24 to L upper back. [facility] Surgery consult placed for [facility] Admits alcohol use Active Condition Jun 05, 2022 Entered By: PRETTY MORRIS Comment: Drinking at recommended limits [facility] Alcohol dependence Active Condition [facility] Atrial flutter Active Condition [facility] Attention deficit hyperactivity disorder, predominantly inattentive type Active Condition Jun 20 Entered By: PRETTY MORRIS Comment: updated. [facility] Cataract, Unspecified Active Condition [facility] Degenerative joint disease Active Condition Oct 03, 2014 Entered By: PRETTY MOONEY Comment: Did not tolerate meloxicam [facility] Former smoker Active Condition [facility] Hypertension Active Condition [facility] Impaired fasting glucose Active Condition [facility] Long-term current use of anticoagulant Active Condition [facility] Major depressive disorder Active Condition Jun 21, 2023 Entered By: PRETTY MORRIS Comment: in partial remission , Dx updated. [facility] Steatosis of liver Active Condition Aug 28, 2021 Entered By: CHERI GARCIA Comment: elastrography 07/2021 with hepatomegaly and fibrosis; no focal lesions [facility] Alcohol dependence Inactive Condition 06/05/2022 May 26, 2021 Entered By: PRETTY MORRIS Comment: drinking at recommended limits. Advised to reduce . [facility] Diagnosis: ICD-10-CM D03.59 Melanoma in situ of other part of trunk Active Diagnosis [facility] Diagnosis: ICD-10-CM I78.1 Nevus, non-neoplastic Active Diagnosis [facility] Diagnosis: ICD-10-CM I48.92 Unspecified atrial flutter Active Diagnosis [facility] Diagnosis: ICD-10-CM F32.9 Major depressive disorder, single episode, unspecified Active Diagnosis [facility] Diagnosis: ICD-10-CM Z46.1 Encounter for fitting and adjustment of hearing aid Active Diagnosis [facility] Diagnosis: ICD-10-CM F10.230 Alcohol dependence with withdrawal, uncomplicated Active Diagnosis [facility] Diagnosis: ICD-10-CM I10 Essential (primary) hypertension Active Diagnosis [facility] Diagnosis: ICD-10-CM M54.2 Cervicalgia Active Diagnosis [facility] Diagnosis: ICD-10-CM R60.9 Edema, unspecified Active Diagnosis [place] Diagnosis: ICD-10-CM L82.1 Other seborrheic keratosis Active Diagnosis [facility] Diagnosis: ICD-10-CM Z13.89 Encounter for screening for other disorder Active Diagnosis [facility] Diagnosis: ICD-10-CM R21 Rash and other nonspecific skin eruption Active Diagnosis [place] Diagnosis: ICD-10-CM F90.0 Attn-defct hyperactivity disorder, predom inattentive type Active Diagnosis [facility] Diagnosis: ICD-10-CM 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, left eye, with actv chrdl neovas Active Diagnosis [facility] Diagnosis: ICD-10-CM Z71.81 Spiritual or restoration counseling Active Diagnosis [facility] Diagnosis: ICD-10-CM Z13.6 Encounter for screening for cardiovascular disorders Active Diagnosis [facility] Diagnosis: ICD-10-CM Z72.89 Other problems related to lifestyle Active Diagnosis [facility] Diagnosis: ICD-10-CM F10.20 Alcohol dependence, uncomplicated Active Diagnosis [facility] Diagnosis: ICD-10-CM Z04.89 Encounter for examination and observation for oth reasons Active Diagnosis [facility] ([id number]) Admit Reason: ALCOHOL USE DISORDER Active Diagnosis [facility] Diagnosis: ICD-10-CM F10.94 Alcohol use, unspecified with alcohol-induced mood disorder Active Diagnosis [facility] Diagnosis: ICD-10-CM R45.851 Suicidal ideations Active Diagnosis [facility] Diagnosis: ICD-10-CM H35.712 Central serous chorioretinopathy , left eye Active Diagnosis [facility] Diagnosis: ICD-10-CM 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 Medication Details Route Status Patient Instructions Prescription Expires Prescription Number Last Dispense Date Ordering Provider Order Date Order Qty Source ACAMPROSATE [place] 333MG TAB,EC TAKE TWO TABLETS BY MOUTH THREE TIMES DAILY WITH MEALS TO BE USED UNTIL REMAINDE R OF REGULAR PRESCRIP TION ARRIVES IN THE MAIL ORAL HOLD 07/16/2024 [id number] LEXI BROOKE 2023 180 [facility] ACAMPROSATE [place] 333MG TAB,EC TAKE TWO TABLETS BY MOUTH THREE TIMES DAILY WITH MEALS TO BE USED UNTIL REMAINDE R OF REGULAR PRESCRIP TION ARRIVES IN THE MAIL ORAL DISCONT INUED 08/01/2023 [id number] LEXX MÁRQUEZ 2023 42 [facility] ACAMPROSATE CA 333MG TAB,EC TAKE TWO TABLETS BY MOUTH THREE TIMES DAILY WITH MEALS ORAL DISCONT INUED 07/26/2023 [id number] LEXX MÁRQUEZ M 2023 180 [facility] AMLODIPINE BESYLATE 10MG TAB TAKE ONE TABLET BY MOUTH ONCE DAILY FOR BLOOD PRESSURE , DO NOT TAKE WITH GRAPEFRU IT JUICE ORAL DISCONT INUED BY PROVIDE R 10/05/2024 [id number] JOSE, APOLINARI O 2023 90 [place] AMLODIPINE BESYLATE 5MG TAB TAKE ONE TABLET BY MOUTH ONCE DAILY FOR BLOOD PRESSURE /HEART, DO NOT TAKE WITH GRAPEFRU IT JUICE ORAL ACTIVE 01/13/2025 [id number] JOSE, APOLINARI O 2023 90 [place] AMLODIPINE BESYLATE 5MG TAB TAKE ONE TABLET BY MOUTH ONCE DAILY FOR BLOOD PRESSURE , DO NOT TAKE WITH GRAPEFRU IT JUICE ORAL DISCONT INUED (EDIT) 04/28/2024 [id number] JOSE, APOLINARI O 2023 90 [place] AMLODIPINE BESYLATE 5MG TAB TAKE ONE TABLET BY MOUTH ONCE DAILY FOR BLOOD PRESSURE /HEART, DO NOT TAKE WITH GRAPEFRU IT JUICE ORAL DISCONT INUED (EDIT) 05/07/2023 [id number] AURORAVIKRAMAlexanderSTEPHEN RMEN F 2022 30 [place] AMPHETAMINE -DEXTROAMPH ETAMINE RESIN COMPLEX 20MG CAP,SA TAKE ONE CAPSULE BY MOUTH ONCE DAILY FOR ADHD WITH HYPERACT IVITY NEXT FILL 06/21/23* * ORAL ACTIVE 06/20/2023 [id number] ROOT,AMISH A A 2023 30 [place] AMPHETAMINE -DEXTROAMPH ETAMINE RESIN COMPLEX 20MG CAP,SA TAKE ONE CAPSULE BY MOUTH ONCE DAILY FOR ADHD WITH HYPERACT IVITY NEXT FILL 05/24/23* * ORAL DISCONT INUED 05/23/2023 [id number] ROOT,AMISH A A 2023 30 [place] AMPHETAMINE -DEXTROAMPH ETAMINE RESIN COMPLEX 20MG CAP,SA TAKE ONE CAPSULE BY MOUTH ONCE DAILY FOR ADHD WITH HYPERACT IVITY NEXT FILL 04/23/23* * ORAL DISCONT INUED BY PROVIDE R 04/24/2023 [id number] ALEXANDRAAMISH Alexander Munoz 2023 30 [facility] IELD APIXABAN 5MG TAB TAKE ONE TABLET BY MOUTH EVERY 12 HOURS ORAL ACTIVE 11/11/2024 [id number] JOSE APOLINARI O 2023 180 [facility] IELD APIXABAN 5MG TAB TAKE ONE TABLET BY MOUTH EVERY 12 HOURS ORAL DISCONT INUED 08/16/2024 [id number] JOSE, APOLINARI O 2023 180 [facility] APIXABAN 5MG TAB TAKE ONE TABLET BY MOUTH EVERY 12 HOURS FOR PREVENTI ON OF BLOOD CLOTS ORAL DISCONT INUED BY PROVIDE R 07/04/2023 [id number] MARISOL HENRY 2023 60 [facility] IELD APIXABAN 5MG TAB TAKE ONE TABLET BY MOUTH EVERY 12 HOURS FOR PREVENTI ON OF BLOOD CLOTS ORAL DISCONT INUED 05/28/2023 [id number] ANDREW,YOSHI MARIELLA 2023 60 [place] APIXABAN 5MG TAB TAKE ONE TABLET BY MOUTH EVERY 12 HOURS ORAL 07/26/2023 [id number] LEXX MÁRQUEZ 2023 60 [facility] ASCORBIC ACID 500MG TAB TAKE ONE TABLET BY MOUTH DAILY ORAL ACTIVE Uriah MOONEY 2014 [facility] IELD BUPROPION HCL 150MG 12HR TAB,SA TAKE TWO TABLETS BY MOUTH ONCE DAILY FOR DEPRESSI ON ORAL DISCONT INUED BY PROVIDE R 10/19/2024 [id number] LEXI BROOKE 2023 60 [facility] BUPROPION HCL 200MG 12HR TAB,SA TAKE ONE TABLET BY MOUTH ONCE DAILY ORAL DISCONT INUED (EDIT) 07/16/2024 [id number] LEXI BROOKE 2023 30 [facility] BUPROPION HCL 200MG 12HR TAB,SA TAKE ONE TABLET BY MOUTH ONCE DAILY ORAL DISCONT INUED 07/26/2023 [id number] LEXX MÁRQUEZ M 2023 30 [facility] BUPROPION HCL 200MG 12HR TAB,SA TAKE ONE TABLET BY MOUTH ONCE DAILY FOR DEPRESSI ON ORAL DISCONT INUED BY PROVIDE R 02/02/2024 [id number] AMISH MORRIS A 2022 60 [place] BUPROPION HCL 300MG 24HR TAB,SA TAKE ONE TABLET BY MOUTH EVERY MORNING MOOD ORAL SUSPEND ED 12/24/2024 [id number] LEXI BROOKE 2023 90 [facility] CLOBETASOL PROPIONATE 0.05% CREAM,TOP APPLY A THIN LAYER TOPICALL Y TWICE DAILY NEEDED FOR ITCHING/ RASH APPLY TO HANDS NEEDED. MAX 14 DAYS/MON TH TOPICA L ACTIVE 06/02/2025 [id number] GABY REED 2024 60 [facility] FISH OIL 1000MG (500MG DHA/EPA) CAP,ORAL TAKE 1 CAPSULE BY MOUTH DAILY ORAL ACTIVE Uriah MOONEY 2014 [place] FLUOCINONID E 0.05% CREAM,TOP APPLY A SMALL AMOUNT TOPICALL Y ONCE DAILY FOR PALMAR PSORIATI C LESIONS TOPICA L DISCONT INUED 06/24/2023 [id number] JOSE, APOLINARI O 2023 60 [place] FLUOCINONID E 0.05% CREAM,TOP APPLY A SMALL AMOUNT TOPICALL Y ONCE DAILY FOR PALMAR PSORIATI C LESIONS TOPICA L 12/13/2023 [id number] JOSE, APOLINARI O 2023 60 [place] FOLIC ACID 1MG TAB TAKE ONE TABLET BY MOUTH ONCE DAILY FOR ANEMIA FROM INADEQUA TE FOLIC ACID VITAMIN/ NUTRITIO N SUPPLEME NT ORAL ACTIVE 09/14/2024 [id number] JOSECHERIARI O 2023 90 [place] FOLIC ACID 1MG TAB TAKE ONE TABLET BY MOUTH ONCE DAILY VITAMIN/ NUTRITIO N SUPPLEME NT ORAL 07/26/2023 [id number] LEXX MÁRQUEZ 2023 30 [facility] FUROSEMIDE 20MG TAB TAKE ONE-HALF TABLET BY MOUTH ONCE DAILY TO REMOVE FLUID/CO NTROL BLOOD PRESSURE PLEASE DO LABS IN ONE WEEK ORAL 12/19/2023 [id number] JOSEABDILINARI O 2023 15 [place] GABAPENTIN 100MG CAP TAKE TWO CAPSULES BY MOUTH AT BEDTIME FOR 7 DAYS, THEN TAKE TWO CAPSULES TWICE DAILY FOR 7 DAYS, THEN TAKE TWO CAPSULES THREE TIMES A DAY ALCOHOL USE DISORDER (OFF LABEL) ORAL 12/25/2023 [id number] LEXI BROOKE 2023 138 [facility] GABAPENTIN 400MG CAP TAKE ONE CAPSULE BY MOUTH AT BEDTIME ORAL ACTIVE 04/06/2025 [id number] LEXI BROOKE 2024 30 [facility] GABAPENTIN 400MG CAP TAKE ONE CAPSULE BY MOUTH AT BEDTIME ORAL DISCONT INUED 02/17/2025 [id number] LEXI BROOKE 2023 30 [facility] HOMA CAP/TAB TAKE DOSE UNKNOWN BY MOUTH ONCE DAILY ORAL ACTIVE Uriah MOONEY 2018 [place] HYDROPHILIC (EQV AQUAPHOR) OINT,TOP APPLY LIBERAL AMOUNT TOPICALL Y THREE TIMES DAILY NEEDED FOR DRY SKIN TOPICA L ACTIVE 01/20/2025 [id number] JOSECHERIARI O 2023 454 [place] LISINOPRIL 10MG TAB TAKE ONE TABLET BY MOUTH ONCE DAILY TO CONTROL BLOOD PRESSURE ORAL ACTIVE 09/14/2024 [id number] JOSE APOLINARI O 2023 90 [place] LISINOPRIL 10MG TAB TAKE ONE TABLET BY MOUTH ONCE DAILY TO CONTROL BLOOD PRESSURE ORAL DISCONT INUED 05/14/2024 [id number] JOSEABDI JURADOLINARI O 2023 90 [facility] IELD LISINOPRIL 20MG TAB TAKE ONE TABLET BY MOUTH ONCE DAILY TO CONTROL BLOOD PRESSURE ORAL SUSPEND ED 01/13/2025 [id number] JOSE APOLINARI O 2023 90 [facility] IELD METOPROLOL SUCCINATE 25MG TAB,SA TAKE TWO TABLETS BY MOUTH AT BEDTIME FOR BLOOD PRESSURE /HEART ORAL DISCONT INUED (EDIT) 06/13/2023 [id number] JOSEABDILINARI O 2023 60 [place] METOPROLOL SUCCINATE 25MG TAB,SA TAKE TWO TABLETS BY MOUTH AT BEDTIME FOR BLOOD PRESSURE /HEART ORAL DISCONT INUED 05/28/2023 [id number] ANDREW,WILL MARIELLA 2023 60 [place] METOPROLOL SUCCINATE 50MG TAB,SA TAKE ONE TABLET BY MOUTH AT BEDTIME FOR HIGH BLOOD PRESSURE (NOTE DOSE) ORAL DISCONT INUED BY PROVIDE R 05/27/2024 [id number] ABDI GARCIALINARI O 2023 90 [place] MOISTURIZIN G LOTION APPLY LIBERAL AMOUNT TOPICALL Y ONCE DAILY NEEDED FOR DRY SKIN TOPICA L 10/07/2023 [id number] JOSE APOLINARI O 2022 480 [place] MULTIVITAMI NS CAP/TAB TAKE ONE TABLET BY MOUTH ONCE DAILY ORAL ACTIVE Uirah MOONEY 2018 [place] MULTIVITAMI NS W/MINERALS CAP/TAB TAKE ONE CAP/TAB BY MOUTH ONCE DAILY ORAL ACTIVE 09/14/2024 [id number] CHERI GARCIAARI O 2023 100 [place] MULTIVITAMI NS W/MINERALS CAP/TAB TAKE ONE CAP/TAB BY MOUTH ONCE DAILY ORAL 07/26/2023 [id number] LEXX MÁRQUEZ 2023 30 [facility] NALOXONE HCL 4MG/SPRAY SOLN,SPRAY, NASAL INSTILL 1 SPRAY ONE NOSTRIL ONE TIME NEEDED CALL 911 WITH ADMINIST RATION. REPEAT WITH SECOND DEVICE IF SYMPTOMS RETURN NASAL 07/26/2023 [id number] LEXX MÁRQUEZ M 2023 2 [facility] OTHER CAP/TAB TAKE MEDIUM CHAIN TRIGLYCE RIDES BY MOUTH ONCE DAILY ORAL ACTIVE Uriah MOONEYIA 2018 [place] OTHER CAP/TAB TAKE PLANT PROTEIN BY MOUTH ONCE DAILY ORAL ACTIVE Uriah MOONEYIA 2018 [place] POTASSIUM CHLORIDE 10MEQ TAB,SA TAKE ONE TABLET BY MOUTH ONCE DAILY WHILE ON FUROSEMI DE ORAL 02/17/2024 [id number] JOSE, APOLINARI O 2023 90 [place] SUNSCREEN 30-50/AVOBE NZONE/PABA- FREE COMBO LOTION APPLY A LIBERAL AMOUNT TOPICALL Y NEEDED TO PREVENT SUNBURN TOPICA L 10/07/2023 [id number] JOSE, APOLINARI O 2022 480 [place] THIAMINE 100MG TAB TAKE TWO TABLETS BY MOUTH ONCE DAILY ORAL ACTIVE 09/14/2024 [id number] JOSE, APOLINARI O 2023 200 [place] THIAMINE 100MG TAB TAKE TWO TABLETS BY MOUTH ONCE DAILY ORAL 07/26/2023 [id number] LEXX MÁRQUEZ M 2023 60 [facility] ZINC 50MG (FROM SULFATE) CAP TAKE 1 CAPSULE BY MOUTH DAILY ORAL ACTIVE Uriah MOONEY 2014 [place] Immunizations Combined list of available immunizations from the Department of Defense and Veterans Affairs facilities. Immunization Series Date Given Administered By Site Reaction Lot Number CVX Code Drug Golf Ball Molder Status Comments Source COVID-19 (PFIZER), MRNA, LNP-S, PF, 30 MCG/0.3 ML DOSE 2021 208 complet ed [facility] COVID-19 (PFIZER), MRNA, LNP-S, PF, 30 MCG/0.3 ML DOSE 2 2020 208 complet ed PFR; [id number]; 1 [facility] COVID-19 (PFIZER), MRNA, LNP-S, PF, 30 MCG/0.3 ML DOSE 1 2020 208 complet ed PFR; [id number]; 1 [facility] ZOSTER RECOMBINANT 2 2017 187 complet ed [place] ZOSTER RECOMBINANT 1 2017 187 complet ed [place] PNEUMOCOCCAL POLYSACCHARID E [id number] 2016 33 complet ed [place] DTAP 2015 20 complet ed Site: Right Deltoid [place] DTAP, UNSPECIFIED FORMULATION 2015 107 complet ed [place] ZOSTER (HISTORICAL) 2011 121 complet ed [facility] Results Combined list of recent chemistry, hematology and other laboratory results from Department of Defense and Veterans Affairs, ranging from 15 months to all on record, depending upon the facility. Order Name Results Value Reference Range Date Interpretation Specimen Comments Source VITAMIN B-1 (THIAMINE )-(QU) THIAMINE [MOLES/VOLU ME] IN SERUM OR PLASMA 13 nmol/L 8 - 30 03/09 Specimen Type: PLASMA Comment: Vitamin supplementa tion within 24 hours prior to blood draw may affect the accuracy of the results. This test was developed and its analytical performance characteris tics have been determined by [facility] [place], [place]. It has not been cleared or approved by the U.S. Food and Drug Administrat ion. This assay has been validated pursuant to the CLIA regulations and is used for clinical purposes. Test Performed by [facility], [employer] [place], [address] [facility], [place], [place] Drake Mejia M.D., Ph.D., Director of Laboratorie s , CLIA [id number] TEST PERFORMED AT: , Ordering Provider: RAYMUNDO GARCIA Report Released Date/Time: Sep 14, 2023 10:21 AM Reporting Lab: [facility] [address] [facility] [address] Performing Lab: [facility] [address] [address] [facility] FOLATE (WROX) FOLATE [MASS/VOLUM E] IN SERUM OR PLASMA 17.6 ng/mL 5.2 03/09 Specimen Type: SERUM No comment entered. Ordering Provider: RAYMUNDO GARCIA Report Released Date/Time: Sep 14, 2023 10:21 AM Reporting Lab: [facility] [address] [facility] [address] Performing Lab: [facility] [address] [facility] [address] [facility] VITAMIN B12 COBALAMIN (VITAMIN B12) [MASS/VOLUM E] IN SERUM OR PLASMA 493 pg/mL 200 - 900 03/09 Specimen Type: SERUM No comment entered. Ordering Provider: RAYMUNDO GARCIA Report Released Date/Time: Sep 14, 2023 10:21 AM Reporting Lab: [facility] [address] [facility] [address] Performing Lab: [facility] [address] [facility] [address] [facility] LIVER FUNCTION PROTEIN [MASS/VOLUM E] IN SERUM OR PLASMA 8.1 g/dL 6.0 - 8.3 03/09 Specimen Type: SERUM No comment entered. Ordering Provider: RAYMUNDO GARCIA Report Released Date/Time: Sep 14, 2023 10:21 AM Reporting Lab: [facility] [address] [facility] [address] Performing Lab: [facility] [address] [facility] [address] [facility] LIVER FUNCTION ALBUMIN [MASS/VOLUM E] IN SERUM OR PLASMA 4.5 g/dL 3.5 - 5.0 01/09 /2025 Specimen Type: SERUM No comment entered. Ordering Provider: RAYMUNDO GARCIA Report Released Date/Time: Sep 14, 2023 10:21 AM Reporting Lab: [facility] [address] [facility] [address] Performing Lab: [facility] [place] [facility] [address] [facility] [address] [facility] LIVER FUNCTION ALKALINE PHOSPHATASE [ENZYMATIC ACTIVITY/VO LUME] IN SERUM OR PLASMA 99 U/L 40 - 150 03/09 Specimen Type: SERUM No comment entered. Ordering Provider: RAYMUNDO GARCIA Report Released Date/Time: Sep 14, 2023 10:21 AM Reporting Lab: [facility] [facility] [address] [facility] [address] Performing Lab: [facility] [place] [facility] [address] [facility] [address] [facility] [facility] LIVER FUNCTION ASPARTATE AMINOTRANSF ERASE [ENZYMATIC ACTIVITY/VO LUME] IN SERUM OR PLASMA 29 U/L 5 - 34 03/09 Specimen Type: SERUM No comment entered. Ordering Provider: RAYMUNDO GARCIA Report Released Date/Time: Sep 14, 2023 10:21 AM Reporting Lab: [facility] [facility] [address] [facility] [address] Performing Lab: [facility] [place] [facility] [address] [facility] [address] [facility] LIVER FUNCTION ALANINE AMINOTRANSF ERASE [ENZYMATIC ACTIVITY/VO LUME] IN SERUM OR PLASMA 37 U/L 03/09 Specimen Type: SERUM No comment entered. Ordering Provider: RAYMUNDO GARCIA Report Released Date/Time: Sep 14, 2023 10:21 AM Reporting Lab: [facility] [place] [facility] [address] [facility] [address] Performing Lab: [facility] [place] [facility] [address] [facility] [address] [facility] LIVER FUNCTION BILIRUBIN.T OTAL [MASS/VOLUM E] IN SERUM OR PLASMA 1.2 mg/dL 0.2 - 1.2 03/09 Specimen Type: SERUM No comment entered. Ordering Provider: RAYMUNDO GARCIA Report Released Date/Time: Sep 14, 2023 10:21 AM Reporting Lab: [address] [address] Performing Lab: [address] [address] [facility] LIVER FUNCTION BILIRUBIN.D IRECT [MASS/VOLUM E] IN SERUM OR PLASMA 0.4 mg/dL 0 - 0.5 03/09 Specimen Type: SERUM No comment entered. Ordering Provider: RAYMUNDO GARCIA Report Released Date/Time: Sep 14, 2023 10:21 AM Reporting Lab: [address] [address] Performing Lab: [address] [address] [facility] VITAMIN D 25-OH (Therapy monitor) 25-HYDROXYV ITAMIN D3 [MASS/VOLUM E] IN SERUM OR PLASMA 26 ng/mL 30 - 100 01/16 L Specimen Type: SERUM Comment: Vitamin D, 25-Hydroxy reports concentrati ons of two common forms, 25-OHD2 and 25-OHD3. 25-OHD3 indicates both endogenous production and supplementa tion. 25-OHD2 is an indicator of exogenous sources such as diet or supplementa tion. Therapy is based on measurement of Total 25-OHD, with levels <20 ng/mL indicative of Vitamin D deficiency, while levels between 20 ng/mL and 30 ng/mL suggest insufficien cy. Optimal levels are > or = 30 ng/mL. For additional information , please refer to [email or web address] [email or web address] .[email or web address]/FA [email or web address] (This link is being provided for information al/ educational purposes only.) This test was developed and its analytical performance characteris tics have been determined by [employer] [place], [place]. It has not been cleared or approved by the U.S. Food and Drug Administrat ion. This assay has been validated pursuant to the CLIA regulations and is used for clinical purposes. This test was developed and its analytical performance characteris tics have been determined by [employer] [place], [place]. It has not been cleared or approved by the U.S. Food and Drug Administrat ion. This assay has been validated pursuant to the CLIA regulations and is used for clinical purposes. Test Performed by [facility], [employer] [place], [address] [place] [address] Drake Mejia M.D., Ph.D., Director of Laboratorie s , CLIA [id number] TEST PERFORMED AT: , Ordering Provider: RAYMUNDO GARCIA Report Released Date/Time: Oct 14, 2022 04:44 PM Reporting Lab: [facility] [address] [facility] [address] Performing Lab: [facility] [address] [address] [facility] VITAMIN D 25-OH (Therapy monitor) 25-HYDROXYV ITAMIN D3 [MASS/VOLUM E] IN SERUM OR PLASMA 26 ng/mL 01/16 Specimen Type: SERUM Comment: Vitamin D, 25-Hydroxy reports concentrati ons of two common forms, 25-OHD2 and 25-OHD3. 25-OHD3 indicates both endogenous production and supplementa tion. 25-OHD2 is an indicator of exogenous sources such as diet or supplementa tion. Therapy is based on measurement of Total 25-OHD, with levels <20 ng/mL indicative of Vitamin D deficiency, while levels between 20 ng/mL and 30 ng/mL suggest insufficien cy. Optimal levels are > or = 30 ng/mL. For additional information , please refer to http://educ ation.[employer]/faq/FA Q199 (This link is being provided for information al/ educational purposes only.) This test was developed and its analytical performance characteris tics have been determined by [employer] [place], [place]. It has not been cleared or approved by the [place] [employer] and Drug Administrat ion. This assay has been validated pursuant to the CLIA regulations and is used for clinical purposes. This test was developed and its analytical performance characteris tics have been determined by [facility] [place]. It has not been cleared or approved by the U.S. Food and Drug Administrat ion. This assay has been validated pursuant to the CLIA regulations and is used for clinical purposes. Test Performed by [facility], [facility], [address] [place] [address] Drake Mejia M.D., Ph.D., Director of Laboratorie s , CLIA [id number] TEST PERFORMED AT: , Ordering Provider: RAYMUNDO GARCIA Report Released Date/Time: Oct 14, 2022 04:44 PM Reporting Lab: [facility] [address] [facility] [address] Performing Lab: [facility] [id number] [place] [address] VITAMIN D 25-OH (Therapy monitor) CALCIFEROL (VIT D2) [MASS/VOLUM E] IN SERUM OR PLASMA <4ng/m L 01/16 Specimen Type: SERUM Comment: Vitamin D, 25-Hydroxy reports concentrati ons of two common forms, 25-OHD2 and 25-OHD3. 25-OHD3 indicates both endogenous production and supplementa tion. 25-OHD2 is an indicator of exogenous sources such as diet or supplementa tion. Therapy is based on measurement of Total 25-OHD, with levels <20 ng/mL indicative of Vitamin D deficiency, while levels between 20 ng/mL and 30 ng/mL suggest insufficien cy. Optimal levels are > or = 30 ng/mL. For additional information , please refer to http://educ ation.[employer] .[employer]/faq/FA Q199 (This link is being provided for information al/ educational purposes only.) This test was developed and its analytical performance characteris tics have been determined by [facility] [place]. It has not been cleared or approved by the U.S. Food and Drug Administrat [employer]. This assay has been validated pursuant to the CLIA regulations and is used for clinical purposes. This test was developed and its analytical performance characteris tics have been determined by [facility] [place]. It has not been cleared or approved by the U.S. Food and Drug Administrat ion. This assay has been validated pursuant to the CLIA regulations and is used for clinical purposes. Test Performed by [facility], [facility], [address] [place], [place] Drake Mejia M.D., Ph.D., Director of Laboratorie s , CLIA [id number] TEST PERFORMED AT: , Ordering Provider: RAYMUNDO GARCIA Report Released Date/Time: Oct 14, 2022 04:44 PM Reporting Lab: [address] [address] Performing Lab: [place] [id number] [address] [place] TSH THYROTROPIN [UNITS/VOLU ME] IN SERUM OR PLASMA 0.98 u[IU]/ mL 0.35 - 5.00 01/16 Specimen Type: SERUM No comment entered. Ordering Provider: RAYMUNDO GARCIA Report Released Date/Time: Oct 14, 2022 04:44 PM Reporting Lab: [facility] [address] [address] Performing Lab: [facility] [address] [address] [place] MICROALBU MIN CREATININ E RATIO PANEL MICROALBUMI N/CREATININ E [MASS RATIO] IN URINE 8.7 mg/g 0 - 29.9 01/16 Specimen Type: URINE No comment entered. Ordering Provider: RAYMUNDO GARCIA Report Released Date/Time: Oct 14, 2022 04:44 PM Reporting Lab: [facility] [address] [address] Performing Lab: [address] [address] [place] MICROALBU MIN CREATININ E RATIO PANEL MICROALBUMI N [MASS/VOLUM E] IN URINE 0.9 mg/dL 01/16 Specimen Type: URINE No comment entered. Ordering Provider: RAYMUNDO GARCIA Report Released Date/Time: Oct 14, 2022 04:44 PM Reporting Lab: [address] [address] Performing Lab: [address] [address] [place] MICROALBU MIN CREATININ E RATIO PANEL CREATININE [MASS/VOLUM E] IN URINE 103.05 mg/dL 01/16 Specimen Type: URINE No comment entered. Ordering Provider: RAYMUNDO GARCIA Report Released Date/Time: Oct 14, 2022 04:44 PM Reporting Lab: [address] [address] Performing Lab: [address] [address] [place] PSA PROSTATE SPECIFIC AG [MASS/VOLUM E] IN SERUM OR PLASMA 1.07 ng/mL 0.00 - 4.00 01/16 Specimen Type: SERUM No comment entered. Ordering Provider: RAYMUNDO GARCIA Report Released Date/Time: Oct 14, 2022 04:44 PM Reporting Lab: [address] [address] Performing Lab: [address] [address] [place] LIPID PANEL FASTING CHOLESTEROL [MASS/VOLUM E] IN SERUM OR PLASMA 235 mg/dL 01/16 H Specimen Type: SERUM No comment entered. Ordering Provider: RAYMUNDO GARCIA Report Released Date/Time: Oct 14, 2022 04:44 PM Reporting Lab: [address] [address] Performing Lab: [address] [address] [place] LIPID PANEL FASTING TRIGLYCERID E [MASS/VOLUM E] IN SERUM OR PLASMA 121 mg/dL 0 - 150 01/16 Specimen Type: SERUM No comment entered. Ordering Provider: RAYMUNDO GARCIA Report Released Date/Time: Oct 14, 2022 04:44 PM Reporting Lab: [address] [address] Performing Lab: [address] [address] [place] LIPID PANEL FASTING CHOLESTEROL IN LDL [MASS/VOLUM E] IN SERUM OR PLASMA BY CALCULATION 160 mg/dL 0 - 129 01/16 H Specimen Type: SERUM No comment entered. Ordering Provider: RAYMUNDO GARCIA Report Released Date/Time: Oct 14, 2022 04:44 PM Reporting Lab: [address] [address] Performing Lab: [address] [address] [place] LIPID PANEL FASTING CHOLESTEROL .TOTAL/CHOL ESTEROL IN HDL [MASS RATIO] IN SERUM OR PLASMA 4.6 01/16 Specimen Type: SERUM No comment entered. Ordering Provider: RAYMUNDO GARCIA Report Released Date/Time: Oct 14, 2022 04:44 PM Reporting Lab: [address] [address] Performing Lab: [address] [address] [place] LIPID PANEL FASTING CHOLESTEROL IN HDL [MASS/VOLUM E] IN SERUM OR PLASMA 51 mg/dL 40 - 60 01/16 Specimen Type: SERUM No comment entered. Ordering Provider: RAYMUNDO GARCIA Report Released Date/Time: Oct 14, 2022 04:44 PM Reporting Lab: [address] [address] Performing Lab: [address] [address] [place] HEMOGLOBI N A1C PANEL HEMOGLOBIN A1C/HEMOGLO BIN.TOTAL IN BLOOD BY HPLC 5.4 4.0 - 5.6 01/16 Specimen Type: BLOOD Comment: Values obtained from A1C measurement s can vary. For atypical A1C assays, a reported value of 7.0 could actually be between 6.72 and 7.28 if measured by a reference method. A reported value of 9.0 could actually be between 8.73 and 9.27. Ref: http://www. ngsp.org/[place] Pdata.asp Ordering Provider: RAYMUNDO GARCIA Report Released Date/Time: Oct 14, 2022 04:44 PM Reporting Lab: [facility] [place] [facility] [address] [facility] [address] Performing Lab: [facility] [address] [facility] [address] [facility] Vital Signs Combined list of inpatient and outpatient Vital Signs from Department of Defense and Veterans Affairs, ranging from 12 months to all on record, depending upon the facility. Vital Sign Value Date Comments Source SYSTOLIC BLOOD PRESSURE 131 05/04/19 25 10:09:01 [facility] DIASTOLIC BLOOD PRESSURE 86 025 10:09:01 [facility] PULSE OXIMETRY 94 05/03/2024 10:09:01 [facility] WEIGHT 231 05/03/2024 10:09:01 [facility] BMI 30 kg/m2 05/03/2024 10:09:01 [facility] PAIN 0 05/03/2024 10:09:01 [facility] HEIGHT 74 05/03/2024 10:09:01 [facility] TEMPERATURE 97.4 05/03/2024 10:09:01 [facility] PULSE 74 05/03/2024 10:09:01 [facility] RESPIRATION 20 05/03/2024 10:09:01 [facility] SYSTOLIC BLOOD PRESSURE 138 01/17/20 24 09:08:03 [facility] [place] [facility] DIASTOLIC BLOOD PRESSURE 88 024 09:08:03 [facility] [place] [facility] PULSE OXIMETRY 99 01/17/2024 09:08:03 [facility] [place] [facility] WEIGHT 217 01/17/2024 09:08:03 [facility] [place] [facility] BMI 28 kg/m2 01/17/2024 09:08:03 [facility] HEIGHT 74 01/17/2024 09:08:03 [facility] PULSE 69 01/17/2024 09:08:03 [facility] RESPIRATION 16 01/17/2024 09:08:03 [facility] SYSTOLIC BLOOD PRESSURE 126 10/05/19 24 12:57:47 [facility] DIASTOLIC BLOOD PRESSURE 85 024 12:57:47 [facility] PULSE OXIMETRY 96 10/05/2023 12:57:47 [facility] WEIGHT 214.2 10/05/2023 12:57:47 [facility] BMI 28 kg/m2 10/05/2023 12:57:47 [facility] TEMPERATURE 96.8 10/05/2023 12:57:47 [facility] PULSE 63 10/05/2023 12:57:47 [facility] SYSTOLIC BLOOD PRESSURE 119 09/14/19 24 09:54:56 [facility] DIASTOLIC BLOOD PRESSURE 72 024 09:54:56 [facility] PULSE OXIMETRY 96 09/14/2023 09:54:56 [facility] WEIGHT 217 09/14/2023 09:54:56 [facility] BMI 28 kg/m2 09/14/2023 09:54:56 [facility] PAIN 0 09/14/2023 09:54:56 [facility] HEIGHT 74 09/14/2023 09:54:56 [facility] TEMPERATURE 96.3 09/14/2023 09:54:56 [facility] PULSE 57 09/14/2023 09:54:56 [facility] RESPIRATION 20 09/14/2023 09:54:56 [facility] SYSTOLIC BLOOD PRESSURE 115 06/28/19 06:07:54 [facility] DIASTOLIC BLOOD PRESSURE 86 024 06:07:54 [facility] PULSE OXIMETRY 99 06/28/2023 06:07:54 [facility] PULSE 61 06/28/2023 06:07:54 [facility] RESPIRATION 16 06/28/2023 06:07:54 [facility] Encounters Combined list of: 1) Encounters from Department of Veterans Affairs facilities going backup to the last 18 months, not all VA inpatient encounters are included; 2) Encounters from the Department of Defense facilities going backup to 280 months. Location Location Details Encounter Type Encounter Number Reason For Visit Attending Provider ADM Date DC Date Status Disposition Source [facility] Encounter [id number] 12/21 [facility] [place] OFF[place] O/P EST LOW 20-29 MIN [id number] Diagnos is: ICD-10- CM I10 Essenti al (primar y) hyperte nsion JOSE,Alexander POLISOLITARIOIO 01[place] [facility] Out[facility] Encounter [id number] 01/22 [facility] Out[facility] Encounter [id number] MOISÉS SPANGLER 02/01 [facility] Out[facility] Encounter [id number] 02/16 [facility] [place] O/P EST MOD 30-39 MIN [id number] Diagnos is: ICD-10- CM F32.9 Major depress catherine disorde r, single episode , unspeci fied PRETTY MORRIS A 02/16 [facility] [facility] Outpatient Encounter [id number] 03/16 [facility] Outpatient Encounter [id number] 03/24 [facility] Outpatient Encounter [id number] 03/25 [facility] OFFICE O/P EST LOW 20 MIN [id number] Diagnos is: ICD-10- CM I10 Essenti al (primar y) hyperte nsion JOSE,A POLINARIO 03/26 [facility] [place] [facility] Outpatient Encounter [id number] 03/26 [facility] Outpatient Encounter [id number] 03/31 [facility] UNLISTED SPEC DERM SVC/PX [id number] Diagnos is: ICD-10- CM Z13.89 Encount er for screeni ng for other disorde r CARMELITA RESENDIZ ICA A 04/06 [facility] OFFICE O/P EST SF 10 MIN [id number] Diagnos is: ICD-10- CM L30.1 Dyshidr osis [pompho lyx] SMITHA CLARKE PH J 04/06 [facility] Out[facility] Encounter [id number] 04/06 [facility] Out[facility] Encounter [id number] SPANGLERMOISÉS 04/23 [facility] Out[facility] Encounter [id number] 04/23 [facility] Out[facility] Encounter [id number] 04/28 [facility] Out[facility] Encounter [id number] 04/28 [facility] Out[facility] Encounter [id number] 04/28 [facility] Out[facility] Encounter [id number] 04/28 [facility] Out[facility] Encounter [id number] 04/28 [facility] Out[facility] Encounter [id number] 04/28 [facility] MTMS BY PHARM STAFF RADIOLOGIST 15 MIN [id number] Diagnos is: ICD-10- CM Z79.01 halfway (curren t) use of anticoa gulanELKE Harrison 04/28 [facility] HEARING AID REPAIR/MOD IFYING [id number] Diagnos is: ICD-10- CM Z46.1 Encount er for fitting and adjustm ent of hearing aid SUSIABRAMROSENDO L 05/06 [facility] Out[facility] Encounter [id number] 05/09 [facility] OFFICE O/P EST MOD 30 MIN [id number] Diagnos is: ICD-10- CM I48.92 Unspeci fied atrial flutter Alexander GARCIA 05/09 [facility] [place] [facility] Out[facility] Encounter [id number] 05/11 [facility] Out[facility] Encounter [id number] 05/11 [facility] Outpatient Encounter [id number] 05/16 [facility] Out[facility] Encounter [id number] ROSENDO TALAVERA L 05/16 [facility] Outpatient Encounter [id number] MOISÉS SPANGLER 05/19 [facility] Out[facility] Encounter [id number] 05/20 [facility] Out[facility] Encounter [id number] 05/23 [facility] MTMS BY PHARM EST 15 MIN [id number] Diagnos is: ICD-10- CM Z79.01 termite helper (curren t) use of anticoa ELKE Terrazas 05/25 [facility] Out[facility] Encounter [id number] 06/02 [facility] Out[facility] Encounter [id number] 06/03 [facility] COMPRE OPH EXAM EST PT 1/ [id number] Diagnos is: ICD-10- CM H35.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, left eye DEAN QUIÑONES 06/17 [facility] CPTR OPHTH DX IMG POST SEGMT [id number] Diagnos is: ICD-10- CM 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, left eye, with actv chrdl neovas DEAN QUIÑONES 06/17 [facility] Outpatient Encounter [id number] 06/20 [facility] Out[facility] Encounter [id number] 06/20 [facility] Out[facility] Encounter [id number] 06/20 [facility] OFF/OP EST MAY X REQ PHY/QHP [id number] Diagnos is: ICD-10- CM R45.851 Suicida l ideatio BRITNEY Conway 06/20 [facility] PSYCH DIAGNOSTIC EVALUATION [id number] Diagnos is: ICD-10- CM F32.9 Major depress catherine disorde r, single episode , unspeci fied AMAURY ELLIOTT T 06/20 [facility] OFFICE O/P EST HI 40 MIN [id number] Diagnos is: ICD-10- CM F10.94 Alcohol use, unspeci fied with alcohol -induce d mood disorde r MAURICIO KIM 06/20 [facility] [place] PSYTX W PT 30 MINUTES [id number] Diagnos is: ICD-10- CM F32.9 Major depress catherine disorde r, single episode , unspeci fied Uriah FUENTES R 06/20 [place] [facility] Detox[facility]a t[facility] [id number] Admit Reason: ALCOHOL USE DISORDE R REAGAN MÁRQUEZ 06/20 Regular discharge from inpatient treatment. [facility] Inpatient Encounter [id number] 06/20 [facility] Inpatient Encounter [id number] 06/20 [facility] In[facility] Encounter [id number] 06/20 [facility] In[facility] Encounter [id number] REAGAN MÁRQUEZ 06/20 [facility] In[facility] Encounter [id number] REAGAN MÁRQUEZ 06/20 [facility] In[facility] Encounter [id number] 06/20 [facility] In[facility] Encounter [id number] 06/20 [facility] Inpatient Encounter [id number] 06/21 [facility] In[facility] Encounter [id number] 06/21 [facility] Inpatient Encounter [id number] 06/21 [facility] Inpatient Encounter [id number] 06/21 [facility] (6[facility]GE) QNHP OL DIG ASSMT&MGMT 5-10 [id number] Diagnos is: ICD-10- CM Z04.89 [facility] t[facility] and observa tion for oth reasons MANPREET GARCIA 06/21 [facility] GROUP PSYCHOTHER APY [id number] Diagnos is: ICD-10- CM Z72.89 Other problem s related to lifesty le AGOSTO,EM NICOLETTE 06/21 [facility] In[facility] En[facility] [id number] 06/21 [facility] In[facility] Encounter [id number] 06/21 [facility] Inpatient Encounter [id number] 06/21 [facility] Inpatient Encounter [id number] 06/21 [facility] GROUP PSYCHOTHER APY [id number] Diagnos is: ICD-10- CM Z72.89 Other problem s related to lifesty le AGOSTO,EM NICOLETTE 06/21 [facility] SBS[facility] HOSP IP/OBS SF/LOW 25 [id number] Diagnos is: ICD-10- CM F10.20 Alcohol depende nce, uncompl icated Alexander CALDERON MD 06/21 [facility] In[facility] Encounter [id number] 06/21 [facility] CASE MANAGEMENT [id number] Diagnos is: ICD-10- CM F32.9 Major depress catherine disorde r, single episode , unspeci fied PREETHI-PIE RCE,ARACELIS 06/21 [facility] Inpatient Encounter [id number] 06/21 [facility] In[facility] Encounter [id number] 06/21 [facility] Inpatient Encounter [id number] 06/21 [facility] In[facility] Encounter [id number] 06/22 [facility] Inpatient Encounter [id number] 06/22 [facility] In[facility] Encounter [id number] 06/22 [facility] 1ST HOSP IP/OBS HIGH 75 [id number] Diagnos is: ICD-10- CM F90.0 Attn-de fct hyperac tivity disorde r, predom inatten tive type REAGAN MÁRQUEZ 06/22 [facility] In[facility] Encounter [id number] 06/22 [facility] GROUP PSYCHOTHER APY [id number] Diagnos is: ICD-10- CM Z72.89 Other problem s related to lifesty le AGOSTO,EM NICOLETTE 06/22 [facility] Inpatient Encounter [id number] 06/22 [facility] CASE MANAGEMENT [id number] Diagnos is: ICD-10- CM F32.9 Major depress catherine disorde r, single episode , unspeci POONAM Naylor N 06/22 [facility] GROUP PSYCHOTHER APY [id number] Diagnos is: ICD-10- CM Z72.89 Other problem s related to lifesty le AGOSTO,EM NICOLETTE 06/22 [facility] Inpatient Encounter [id number] 06/22 [facility] RE[facility] [id number] Diagnos is: ICD-10- CM Z13.6 Encount er for screeni ng for cardiov ascular disorde rs SEBASTIAN JUDGE 06/22 [facility] ELECTROCAR DIOGRAM TRACING [id number] BASIA NIETO 06/22 [facility] Inpatient Encounter [id number] 06/23 [facility] SBSQ HOSP IP/OBS MODERATE 35 [id number] Diagnos is: ICD-10- CM F32.9 Major depress catherine disorde r, single episode , unspeci fied REAGAN MÁRQUEZ 06/23 [facility] SENIOR TRAINING SPECIALIST REPEATER CHIEF INDIVIDU [id number] Diagnos is: ICD-10- CM 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.81 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 BRITTNY SÁNCHEZ 06/23 [facility] CASE MANAGEMENT [id number] Diagnos is: ICD-10- CM F10.230 Alcohol depende nce with withdra celine, uncompl icated POONAM FRANZ N 06/23 [facility] Inpatient Encounter [id number] 06/23 [facility] GROUP PSYCHOTHER APY [id number] Diagnos is: ICD-10- CM F10.230 Alcohol depende nce with withdra celine, uncompl icated DEBORA AGOSTO 06/23 [facility] In[facility] Encounter [id number] 06/23 [facility] [facility] In[facility] Encounter [id number] 06/23 [facility] SBSQ HOSP IP/OBS MODERATE 35 [id number] Diagnos is: ICD-10- CM F10.230 Alcohol depende nce with withdra celine, uncompl icated REAGAN MÁRQUEZ 06/24 [facility] Outpatient Encounter [id number] Diagnos is: ICD-10- CM I48.92 Unspeci fied atrial flutter EPHRAIM OROZCO MD 06/24 [facility] CASE MANAGEMENT [id number] Diagnos is: ICD-10- CM F10.230 Alcohol depende nce with withdra celine, uncompl icated POONAM FRANZ N N 06/24 [facility] GROUP PSYCHOTHER APY [id number] [id number] Diagnos is: ICD-10- CM F10.230 Alcohol depende nce with withdra celine, uncompl icated AGOSTO,EM NICOLETTE 06/24 [facility] GROUP PSYCHOTHER APY [id number] Diagnos is: ICD-10- CM F10.230 Alcohol depende nce with withdra celine, uncompl icated AGOSTO,EM NICOLETTE 06/24 [facility] Inpatient Encounter [id number] 06/24 [facility] SBS[facility] HOSP IP/OBS SF/LOW 25 [id number] [id number] Diagnos is: ICD-10- CM F10.230 Alcohol depende nce with withdra wal, uncompl icated PIOTREMA 06/25 [facility] SBSQ HOSP IP/OBS SF/LOW 25 [id number] [id number] Diagnos is: ICD-10- CM F32.9 Major depress catherine disorde r, single episode , unspeci fied EMA SALDAÑA 06/26 [facility] HOSP IP/OBS DSCHRG MGMT >30 [id number] [id number] Diagnos is: ICD-10- CM F10.230 Alcohol depende nce with withdra celine, uncompl icated RASHADPAULIEREAGAN 06/27 [facility] Inpatient Encounter [id number] 06/27 [facility] CASE MANAGEMENT [id number] [id number] Diagnos is: ICD-10- CM F10.230 Alcohol depende nce with withdra wal, uncompl icated POONAM FRANZ 06/27 [facility] Inpatient Encounter [id number] [id number] 06/27 [facility] Outpatient Encounter [id number] 07/01 [facility] PSYCH DIAGNOSTIC EVALUATION [id number] [id number] Diagnos is: ICD-10- CM F10.230 Alcohol depende nce with withdra wal, uncompl icated LA GALE 07/04 [facility] Outpatient Encounter [id number] LA GALE 07/04 [facility] Outpatient Encounter [id number] 07/06 [facility] PSYTX W PT 30 MINUTES [id number] [id number] Diagnos is: ICD-10- CM F10.230 Alcohol depende nce with withdra wal, uncompl icated LA GALE 07/11 [facility] OFFICE O/P EST HI 40 MIN [id number] [id number] Diagnos is: ICD-10- CM F32.9 Major depress catherine disorde r, single episode , unspeci fied Amanda BROOKE 07/15 [facility] Outpatient Encounter [id number] 07/22 [facility] Outpatient Encounter [id number] [id number] 08/01 [facility] Out[facility] Encounter [id number] [id number] 08/02 [facility] Outpatient Encounter [id number] [id number] 08/08 [facility] Outpatient Encounter [id number] [id number] 08/08 [facility] Outpatient Encounter [id number] [id number] 08/12 [facility] OFFICE O/P EST MOD 30 MIN [id number] [id number] Diagnos is: ICD-10- CM F32.9 Major depress catherine disorde r, single episode , unspeci fied Amanda BROOKE 08/12 [facility] Out[facility] Encounter [id number] 08/15 [facility] Outpatient Encounter [id number] [id number] 08/15 [facility] Outpatient Encounter [id number] 08/15 [facility] Outpatient Encounter [id number] [id number] 08/16 [facility] Outpatient Encounter [id number] Mat DOWNEY H 08/23 [facility] INTRM OPH EXAM EST PATIENT [id number] Diagnos is: ICD-10- CM 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, left eye, with actv chrdl neovas CHAU,GRANT KWAME E 08/26 [facility] Outpatient Encounter [id number] 09/06 [facility] [place] OFF[place] O/P EST MOD 30 MIN [id number] [id number] Diagnos is: ICD-10- CM M54.2 Cervica lgia JOSE,A LISE 09/13 [place] [facility] OFFICE O/P EST MOD 30 MIN [id number] Diagnos is: ICD-10- CM F90.0 Attn-de fct hyperac tivity disorde r, predom inatten tive type Amanda BROOKE 09/16 [facility] Out[facility] Encounter [id number] [id number] 09/20 [facility] Outpatient Encounter [id number] [id number] 09/28 [facility] Outpatient Encounter [id number] [id number] 10/04 [facility] HC PRO PHONE CALL 5-10 MIN [id number] [id number] Diagnos is: ICD-10- CM I48.92 Unspeci fied atrial flutter DILLENSSAHRAI MAKENNAMARTHA 10/04 [facility] [place] OFFICE O/P EST MOD 30 MIN [id number] Diagnos is: ICD-10- CM R21 Rash and other nonspec ific skin eruptio n Alexander GARCIA 10/04 [place] [facility] Outpatient Encounter [id number] 10/05 [facility] Encounter [id number] 1.10/06 [facility] UN[facility] SPEC DERM SVC/PX [id number] [id number] Diagnos is: ICD-10- CM Z13.89 Encount er for screeni ng for other disorde r Lindsey CHRIS 10/13 [facility] [facility] Out[facility] Encounter [id number] 1.10/17 [facility] Outpatient Encounter [id number] Diagnos is: ICD-10- CM L82.1 Other seborrh eic keratos is SHEA HOUSE 10/17 [facility] Outpatient Encounter [id number] 10/17 [facility] Out[facility] Encounter [id number] [facility] Out[facility] Encounter [id number] [id number] 10/18 [facility] Out[facility] Encounter [id number] [id number]/20 [facility] Outpatient Encounter [id number] [id number] 11/01 [facility] Out[facility] Encounter [id number] [id number] 11/07 [facility] Outpatient Encounter [id number] [id number] [facility] [place] [facility] PRO PHONE CALL 5-10 MIN [id number] [id number] Diagnos is: ICD-10- CM R60.9 Edema, unspeci fied NASREENL CECI H 11/10 [place] [facility] Outpatient Encounter [id number] [id number] 11/11 [facility] Out[facility] Encounter [id number] [id number]/15 [facility] Outpatient Encounter [id number] [id number] 11/15 [facility] Outpatient Encounter [id number] 11[facility]17 [facility] Outpatient Encounter [id number] [id number] 11/18 [facility] Outpatient [facility]counter [id number] 11/18 [facility] Out[facility] Encounter [id number] 11/21 [facility] THERAPEUTI C EXERCISES [id number] Diagnos is: ICD-10- CM M54.2 ALBERTO Powell M 11/24 [facility] OFFICE O/P EST MOD 30 MIN [id number] Diagnos is: ICD-10- CM F32.9 Major depress catherine disorde r, single episode , unspeci fied Amanda BROOKE MATEO 11/24 [facility] Out[facility] Encounter [id number] 1.11/24 [facility] Out[facility] Encounter [id number] 1.11/28 [facility] MANUAL THERAPY 1/> REGIONS [id number] Diagnos is: ICD-10- CM M54.2 Amanda Salgado MATEO 12/02 [facility] MANUAL THERAPY 1/> REGIONS [id number] Diagnos is: ICD-10- CM M54.2 ALBERTO Powell M 12/08 [facility] THERAPEUTI C EXERCISES [id number] Diagnos is: ICD-10- CM M54.2 Amanda Salgado MATEO 12/14 [facility] Outpatient Encounter [id number] 12/19 [facility] OFFICE O/P EST MOD 30 MIN [id number] Diagnos is: ICD-10- CM F32.9 Major depress catherine disorde r, single episode , unspeci fiAmanda Mederos MATEO 12/23 [facility] MANUAL THERAPY 1/ REGIONS [id number] Diagnos is: ICD-10- CM M54.2 Cervica ALBERTO Macdonald M 12/30 [facility] Outpatient Encounter [id number] 01/11 [facility] Outpatient Encounter [id number] JOSE,A POLINARIO 01/12 [facility] Outpatient Encounter [id number] JOSE,A POLINARIO 01/12 [facility] Outpatient Encounter [id number] 01/16 [facility] [place] OFF/OP EST JUNE X REQ PHY/QHP [id number] [id number] Diagnos is: ICD-10- CM I10 Essenti al (primar y) hyperte nsion NASREEN,L CECI H 01/16 [place] [facility] Outpatient Encounter [id number]/17 [facility] Outpatient Encounter [id number] 01/24 [facility] OFFICE O/P EST MOD 30 MIN [id number] [id number] Diagnos is: ICD-10- CM F10.230 Alcohol depende nce with juli berger, uncompl icated Amanda BROOKE 02/16 [facility] Out[facility] Encounter [id number] 03/14 [facility] Out[facility]counter [id number] 03/15 [facility] Outpatient Encounter [id number] 03/17 [facility] Outpatient Encounter [id number]/22 [facility] Outpatient Encounter [id number] [id number] 03/22 [facility] PH1 ASSMT&MGMT NQHP 5-10 [id number] [id number] Diagnos is: ICD-10- CM I48.92 Unspeci fied atrial flutter SOMMER ORO 03/27 [facility] HEARING AID FITTING/CH ECKING [id number] [id number] Diagnos is: ICD-10- CM Z46.1 Encount er for fitting and adjustm ent of hearing aid ROSENDO TALAVERA 04/04 [facility] OFFICE O/P EST MOD 30 MIN [id number] [id number] Diagnos is: ICD-10- CM F32.9 Major depress catherine disorde r, single episode , unspeci fied Amanda BROOKE MATEO 04/05 [facility] OFFICE O/P EST MOD 30 MIN [id number] 1BY. 29 Diagnos is: ICD-10- CM I48.92 Unspeci fied atrial flutter GIUSEPPE CHERYHRYN 05/03 [place] [facility] Outpatient Encounter [id number] 05/22 [facility] Outpatient [facility]counter [id number] 06/01 [facility] OFFICE O/P NEW [place] 60 MIN [id number] Diagnos is: ICD-10- CM I78.1 Nevus, non-yolanda plastic GABY REED 06/01 [place] [facility] Outpatient Encounter [id number] GABY REED 06/01 [facility] Outpatient Encounter [id number] MERVIN NGUYEN MD 06/06 [facility] SYNCH AUDIO-ONLY EST LOW 20 [id number] [id number] Diagnos is: ICD-10- CM D03.59 Melanom a in situ of other part of trunk GABY REED 06/06 [facility] Social History Combined list of available smoking, tobacco, and other social history from Department of Defense and Veterans Affairs facilities. Social History Type Response Date Comment [facility] e Tobacco smoking status [facility] VA-TOBACCO FORMER USER 01/17/2024 [facility] History of tobacco use [place]-TOBACCO QUIT 1 5 YRS OR MORE 01/17/2024 [facility] History of tobacco use IA-TOBACCO QUIT 1 5 YRS OR MORE 01/13/2023 [facility] History of tobacco use VA-TOBACCO FORMER USER 02/03/2022 [facility] History of tobacco use VA-TOBACCO FORMER USER 01/28/2021 [facility] History of tobacco use [place]-TOBACCO FORMER USER 02/19/2020 [facility] History of tobacco use VA-TOBACCO FORMER USER 05/02/2018 [facility] History of tobacco use QUIT TOBACCO USE 1-7 YEARS AGO 06/03/2017 [facility] History of tobacco use QUIT TOBACCO USE > 7 YEARS AGO 06/30/2016 24 yrs ago [facility] History of tobacco use QUIT TOBACCO USE 1-7 YEARS AGO 11/07/2015 [facility] History of tobacco use QUIT TOBACCO USE 1-7 YEARS AGO 09/30/2015 [facility] History of tobacco use QUIT TOBACCO USE > 7 YEARS AGO 09/13/2014 [facility] Plan of Care List of future care activities from Department [facility] facilities. Additional future care activities may be listed in the Assessment and Plan section. Date/Time Care Activity Care Activity Detail Facili ty 06/08/2024 AMBULATORY - PSYCHIATRY AMBULATORY - PSYC HIATRY [facility] Advance Directives List of completed, amended, or rescinded Advance Directives on record at Department of Veterans Affairs facilities. An actual copy of the Directive is not included. Date Advance Directive Provider Source 06/25/2023 ADVANCE DIRECTIVE DISCUSSION [facility] 08/06/2017 ADVANCE DIRECTIVE ABDIRASHID [facility]
--- OUTSIDE RECORDS SUMMARY | 2024-06-06 17:57 | XMS_ITS | Encounter Summary ---
Author Name [facility] Organization [facility] [place] Address [address] [place] [address] Care Team Providers Care Transmission Mechanic Name Role Phone ARIANNE CHERY Primary Care [...] Relationship to Policy [facility] Aug 29, 2017 [id number] [phone] Kathy ESTR[facility] Mar 01, 2014 [id number] [phone] Kathy ESTRADA [place] MEDICARE (WNR) MEDICARE (M) PART A Sep 29, 2020 PART A [id number] [phone] [place] ESTRADA PATIENT MEDICARE (WNR) MEDICARE (M) PART A Sep 29, 2020 PART A [id number] [phone] [place] ESTRADA PATIENT Selected Encounter This section includes the information on record at [place] for the Encounter. Date/Time Encounter Type Encounter [...] this document. The data comes from all [place] facilities. Date Advance Directives Provider Source Jun 25, 2023 ADVANCE DIRECTIVE DISCUSSION AMAYA FRANZ [facility] Aug 06, 2017 ADVANCE DIRECTIVE ABDIRASHID [facility]
--- OUTSIDE RECORDS SUMMARY | 2024-06-06 17:57 | XMS_ITS | Encounter Summary ---
Author Name [facility] [facility] [place] [facility] [place] [facility] [place] Address [address] [place] [id number] Care Team Providers Care Facility Operations Manager Name Role Phone ARIANNE CHERY Primary Care [...] Name Patient's Relationship to Policy [facility] [employer] [employer] Aug 29, 2017 [id number] [phone] Kathy ESTRADA [place] CE [facility]GANIZ COMMO [facility] Mar 01, 2014 [id number] [phone] Kathy ESTRADA [place] MEDICARE (WNR) MEDICARE (M) PART A Sep 29, 2020 PART A [id number] [phone] [place] ESTRADA PATIENT MEDICARE (WNR) MEDICARE (M) PART A Sep 29, 2020 PART A [id number] [facility] [phone] [place] ESTRADA PATIENT Selected Encounter This section includes the information on record at [place] for the Encounter. Date/Time Encounter Type Encounter Description Reason Provider Source May 03, 2024 10:00 AM OFFICE O/P EST MOD 30 MIN PRIMARY CARE/MEDICINE ICD-10-CM I48.92 Unspecified atrial flutter SISI CHERY Kathy Encounter Template Text not used by [place] Assessments - Encounter Diagnoses This section includes the primary and secondary diagnoses documented for the Encounter. Date/Time Primary/Secondary Diagnosis Diagnosis Name Provider Source May 03, 2024 10:00 AM PRIMARY Unspecified atrial flutter SISI CHERY [facility] May 03, 2024 10:00 AM SECONDARY Essential (primary) hypertension SISI CHERY [facility] May 03, 2024 10:00 AM SECONDARY Fatty (change of) liver, not elsewhere classified SISI CHERY [facility] May 03, 2024 10:00 AM SECONDARY Major depressive disorder, single episode, unspecified SISI CHERY [facility] May 03, 2024 10:00 AM SECONDARY Other problems related to lifestyle SISI CHERY [facility] May 03, 2024 10:00 AM SECONDARY Personal history of nicotine dependence SISI CHERY [facility] Plan of Treatment: Future Appointments (+ 6 months) and Future Tests (+/- 45 days) The Plan of Treatment section includes future care activities for the patient from all [place] [facility]. This section includes future appointments and future orders which are active, pending or scheduled. Future Appointments This section includes appointments that were scheduled to occur 6 months from the date of the Encounter, up to a maximum of 20 appointments. The data comes from all [place] treatment facilities. Appointment Date/Time Appointment Type Appointme nt Facility Name May 18, 2024 08:30 AM AMBULATORY - NONE [place] [facility] [place] [facility] Jun 01, 2024 01:00 PM AMBULATORY - MEDICINE [place] [facility] [place] [facility] Jun 08, 2024 03:30 PM AMBULATORY - PSYCHIATRY [place] [facility] [place] [facility] Jun 20, 2024 02:00 PM AMBULATORY - MEDICINE [place] [facility] [place] [facility] Aug 28, 2024 11:30 AM AMBULATORY - MEDICINE [place] [facility] [place] [facility] Active, Pending, and Scheduled Orders This section includes a listing of several types of active, pending, and scheduled orders, including clinic medications orders, diagnostic test orders, procedure orders and consult orders; where the start date of the order is 45 days before the date of the Encounter or 45 days after the date of theEncounter. The data comes from all [facility] facilities. Test Date/Time Test Type Test Details Facility Name May 03, 2024 12:00 AM Laboratory - Chemistry Order LIPID PANEL FASTING BLOOD (SST-SERUM) [facility] May 03, 2024 12:00 AM Laboratory - Chemistry Order CERULOPLASMIN BLOOD (SST-SERUM) [facility] May 03, 2024 12:00 AM Laboratory - Chemistry Order HEPATITIS B SURFACE ANTIBODY (HBsAb)- BLOOD (SST-SERUM) [facility] May 03, 2024 12:00 AM Laboratory - Chemistry Order HEPATITIS B SURFACE ANTIGEN (HBsAg)- BLOOD (SST-SERUM) [facility] May 03, 2024 12:00 AM Laboratory - Chemistry Order HEPATITIS C ANTIBODY (HCV)-[facility] BLOOD (MARBLED-TOP SERUM) [facility] May 03, 2024 12:00 AM Laboratory - Chemistry Order FERRITIN BLOOD (SST-SERUM) [facility] May 03, 2024 12:00 AM Laboratory - Chemistry Order IRON & TIBC PANEL BLOOD (SST-SERUM) [facility] May 03, 2024 12:00 AM Laboratory - Chemistry Order RODY SCREEN/TITER BLOOD (SST-GOLD) SERUM [facility] May 03, 2024 12:00 AM Laboratory - Chemistry Order ALPHA 1 ANTITRYPSIN BLOOD (SST-SERUM) [facility] May 03, 2024 12:00 AM Laboratory - Chemistry Order LIVER FUNCTION BLOOD (SST-SERUM) [facility] May 03, 2024 12:00 AM Laboratory - Chemistry Order CBC AND DIFF (AUTO) BLOOD (LAV-BLOOD) [facility] May 03, 2024 12:00 AM Laboratory - Chemistry Order BASIC METABOLIC PANEL (non-fasting) BLOOD (SST-SERUM) [facility] May 03, 2024 12:00 AM Laboratory - Chemistry Order ALBUMIN BLOOD (SST-SERUM) [facility] May 03, 2024 12:00 AM Laboratory - Chemistry Order HEPATITIS A ANTIBODY (IGG) BLOOD (SST-SERUM) [facility] May 03, 2024 10:31 AM Laboratory - Chemistry Order PT & INR (PROTIME) BLOOD (BLUE-PLASMA) [facility] Jun 01, 2024 12:00 AM Laboratory - Chemistry Order SURGICAL PATH ORDER SURG PATH SPEC. UNKNOWN SP [place] [facility] [place] [facility] Jun 06, 2024 11:39 AM Consult Order SURGERY/CWM OUTPT Cons [place] [facility] Vital Signs: All taken on the encounter date This section contains inpatient and outpatient Vital Signs collected on the date of the Encounter. Date/Time Temperature Pulse Blood Pressure Respiratory Rate SP02 Pain Height Weight Body Mass Index Source May 03, 2024 10:09 AM 97.4 74 131/86 20 94 0 74 231 30 [facility] Social History: Smoking Status (Most current) and Tobacco Use (All prior to encounter date) This section includes the most current, and the historical, smoking and tobacco- related health factors from the [place] facility where the Encounter took place. Current Smoking Status This section includes the most current smoking, or tobacco-related health factor, from the [place] facility where the Encounter took place. Date/Time Current Smoking Status Comment Facil ity Jan 17, 2024 08:30 AM VA-TOBACCO FORMER USER [facility] Tobacco Use History This section includes a history of the smoking, or tobacco-related health factors, that were collected on or before the date of the Encounter. The data comes from the [place] facility where the Encounter took place. Date/Time Smoking Status/Tobacco Use Comment F acility Jan 17, 2024 08:30 AM VA-TOBACCO QUIT 15 YRS OR MORE [facility] Jan 13, 2023 03:30 PM VA-TOBACCO FORMER USER [facility] Jan 13, 2023 03:30 PM VA-TOBACCO QUIT 15 YRS OR MORE [facility] Feb 03, 2022 09:30 AM VA-TOBACCO FORMER USER [facility] [place] Feb 03, 2022 09:30 AM VA-TOBACCO QUIT 15 YRS OR MORE [facility] [place] Jan 28, 2021 09:00 AM VA-TOBACCO FORMER USER [facility] [place] Jan 28, 2021 09:00 AM VA-TOBACCO QUIT 15 YRS OR MORE [facility] [place] Feb 19, 2020 01:00 PM VA-TOBACCO FORMER USER [facility] [place] Feb 19, 2020 01:00 PM VA-TOBACCO QUIT 15 YRS OR MORE [place] [place] May 02, 2018 09:49 AM VA-TOBACCO FORMER USER [facility] [place] May 02, 2018 09:49 AM VA-TOBACCO QUIT 15 YRS OR MORE [place] [place] Jun 03, 2017 09:23 AM QUIT TOBACCO USE 1-7 YEARS AGO [facility] [place] June 30, 2016 09:51 AM QUIT TOBACCO USE > 7 YEARS AGO 24 yrs ago [facility] [place] Nov 07, 2015 01:29 PM QUIT TOBACCO USE 1-7 YEARS AGO [facility] [place] Sep 30, 2015 01:53 PM QUIT TOBACCO USE 1-7 YEARS AGO [place] [place] Sep 13, 2014 02:46 PM QUIT TOBACCO USE > 7 YEARS AGO [place] [place] Advance Directives: All historical and current Section Date Range: From patient's date of to the date document was created. This section includes ALL of a patient's completed or amended [place] Advance and Rescinded Directives. The entries below indicate that a directive exists for the patient, but an actual copy is not included with this document. The data comes from all [place] facilities. Date Advance Directives Provider Source Jun 25, 2023 ADVANCE DIRECTIVE DISCUSSION AMAYA FRANZ [facility] Aug 06, 2017 ADVANCE DIRECTIVE [facility] Radiology Reports: +/- 30 days of the [...] the Encounter. The data comes from all [place] treatment facilities. Date/Time Radiology Report Provider Source May 18, 2024 08:30 AM ULTRASOUND ABD WITH LIVER ELASTOGRAPHY: EMA ESTRADA MENDY [id number] M Exm Date: MAY 18, 2024@08:30 Req Phys: ARIANNE CHREY Pat Loc: [facility] S[facility] CALL INDUSTRIAL TECHNOLOGY TEACHER (Req'g Loc) Img Loc: ULTRASOUND Service: Unknown [place] [address] (Case [id number] COMPLETE) ULTRASOUND ABDOMEN LIMITED (US Detailed) CPT:16843 Reason for Study: fatty liver, ETOH (Case [id number] COMPLETE) ULTRASOUND ELASTOGRAPHY PARENCHYM(US Detailed) CPT:66311 Clinical History: Report Status: Verified Date Reported: MAY 18, 2024 Date Verified: MAY 18, 2024 Head Of Commission Department E-Sig:/ES/MAVERICK SANCHEZ JR Report: Study: Abdominal ultrasound with elastography. Comparison: Abdominal ultrasound with elastography from August 26, 2021. Findings: Hepatomegaly is again present measuring at least 17.4 cm in long length. (Normal is less than 15.0 cm.) The liver is again diffusely increased in echogenicity consistent with hepatic steatosis/fibrosis. No intrahepatic bile duct dilatation is seen. No hepatic mass is seen. The portal vein is patent with normal hepatopedal flow. The common hepatic duct measures 0.47 cm, which is normal. Liver Elastography: Examination performed on a Alexandre Epiq 7 ultrasound machine. EQI IQR/Med Rod 21%, less than 30% indicative of good quality data set. Stiffness median currently 1.54 m/s. Previously, this measured 1.54 m/s. U Recommendations for interpretations of Liver Stiffness Values Obtained Using ARFI Techniques in Patients with Viral Hepatitis and NAFLD Liver Stiffness Value.....Recommendation <=5kPa (1.3 m/s).........High probability of being normal < 9kPa (1.7 m/s)..........In the absence of other known clinical signs, rules out compensated advanced chronic liver disease. If there are known clinical signs, may need further testing for confirmation. 9 kPa-13 kPa (1.7 to 2.1 m/s) ...Suggestive of compensated advanced chronic liver disease but may need further testing for confirmation. > 13 kPa (2.1 m/s) Likely confirming compensated advanced chronic liver disease. > 17 kPa (2.4 m/s) Suggestive of clinically significant portal hypertension. ARFI = acoustic radiation force impulse cACLD = (compensated) advanced chronic liver disease, CSPH = clinically significant portal hypertension NAFLD = non-alcoholic fatty liver disease A) Factors that may increase liver stiffness include elevated liver function tests, non-fasting state, vascular congestion, acute hepatitis, infiltrative liver diseases, and intense physical exercise. In this setting, the stage of liver fibrosis may be overestimated. However, in all these conditions, stiffness values within the normal range exclude significant liver fibrosis. B) In some patients with NAFLD, the cutoff values for cACLD may be lower (7-9 kPa). C) In etiologies other than viral hepatitis and NAFLD, inclusive of but not limited to alcoholic hepatitis, primary biliary cirrhosis, autoimmune hepatitis, sclerosing cholangitis and drug-induced liver diseases, the cutoff values are not well established. D) In patients with chronic viral hepatitis B or hepatitis C that are successfully treated, the baseline liver stiffness should be that obtained after viral eradication or suppression. E) The percentage change in liver stiffness over time, and not absolute values, should be used. On follow-up studies to evaluate for efficacy of treatment or progression of disease, a 10% difference in liver stiffness should be considered clinically significant. * Update to the Society of Radiologists in Ultrasound Liver Elastography Consensus Statement. Radiology 2020; 296:263-274. The spleen is normal and measures 9.9 cm in length. The pancreas is not seen secondary to prominent shadowing bowel gas. The gallbladder is normal. No gallstones are identified. The machine builder reports a negative sonographic Carranza sign is present. No ascites is identified. Impression: No new focal liver abnormality with elastography values unchanged and which, in the absence of other known clinical signs, rules out compensated advanced chronic liver disease. If there are known clinical signs, may need further testing for confirmation. Primary Diagnostic Code: No immediate attention required Primary Interpreting Staff: MAVERICK SANCHEZ JR, Radiologist (Head Of Commission Department) /MAVERICK DU JR [facility] Encounter Notes: All associated encounter notes This section contains the clinical notes associated to the Encounter. Date/Time Encounter Note(s) Provider Source May 03, 2024 10:14 AM PREVENTIVE MEDICIN E NURSING NOTE: LOCAL TITLE: CLINICAL REMINDERS/NURSING STANDARD TITLE: PREVENTIVE MEDICINE NURSING NOTE DATE OF NOTE: MAY 03, 2024@10:14 ENTRY DATE: MAY 03, 2024@10:14:03 AUTHOR: EMMA MARINIGNER: URGENCY: STATUS: COMPLETED Homelessness/Food Insecurity Screen: In the past 2 months, have you been living in stable housing that you own, rent, or stay in as part of a household? Yes - Living in stable housing. Are you worried or concerned that in the next 2 months you may NOT have stable housing that you own, rent, or stay in as part of a household? No - Not worried about housing near future The reports the following: Within the past 12 months, you worried whether your food would run out before you got money to buy more. Never true Within the past 12 months, the food you bought just didn't last and you didn't have money to get more. Never true Pneumococcal Conjugate Vaccine (PCV15/PCV20/PCV21): Refuses PCV vaccine Immunization: PNEUMOCOCCAL CONJUGATE, UNSPECIFIED FORMULATION Refusal Reason: PATIENT DECISION Patient refuses all immunization(s) in the PneumoPCV group Date Documented: 05/03/24 10:26 Hepatitis C Testing: Patient declines HCV lab test. Influenza Immunization: Deferral / Refusal The patient declines to receive the recommended dose of seasonal influenza vaccine. Immunization: INFLUENZA, UNSPECIFIED FORMULATION Refusal Reason: PATIENT DECISION Patient refuses all immunization(s) in the FLU group Date Documented: 05/03/24 10:26 COVID-19 Immunization: Refused Moderna Monovalent COVID-19 vaccine Immunization: COVID-19 (MODERNA), MRNA, LNP-S, PF, 50 MCG/0.5 ML (AGES 12+ YEARS) Refusal Reason: PATIENT DECISION Patient refuses all immunization(s) in the COVID-19 group Date Documented: 05/03/24 10:27 Hepatitis A Serology/Immunization: Deferral/Refusal: The patient declines vaccination for hepatitis A. Immunization: HEP A, UNSPECIFIED FORMULATION Refusal Reason: PATIENT DECISION Patient refuses all immunization(s) in the HepA group Date Documented: 05/03/24 10:27 Tdap Immunization: The patient declines to receive the recommended dose of Tdap vaccine. Immunization: TDAP Refusal Reason: PATIENT DECISION Patient refuses all immunization(s) in the TDAP group Date Documented: 05/03/24 10:27 RSV Immunization: Respiratory Syncytial Virus (RSV) Vaccine: Refused GlaxoSmithKline (RSV vaccine, adjuvanted, Arexvy). Immunization: RSV, RECOMBINANT, PROTEIN SUBUNIT RSVPREF3, ADJUVANT RECONSTITUTED, 0.5 ML, PF Refusal Reason: PATIENT DECISION Patient refuses all immunization(s) in the RSV group Date Documented: 05/03/24 10:28 /brenda/ EMMA MARIN LPN LPN Signed: 05/03/2024 10:28 EMMA MARIN [facility] [place] May 03, 2024 08:43 AM PRIMARY CARE NURSE PRACTITIONER OUTPATIENT NOTE: LOCAL TITLE: NURSE PRACTITIONER OUTPATIENT NOTE STANDARD TITLE: PRIMARY CARE NURSE PRACTITIONER OUTPATIENT NOTE DATE OF NOTE: MAY 03, 2024@08:43 ENTRY DATE: MAY 03, 2024@08:43:21 AUTHOR: ARIANNE CHERY COSIGNER: URGENCY: STATUS: COMPLETED CC Presents today for 6 mo follow up Refuses all vaccines HPI This is a 68 y/o male with history of Active problems - Computerized Problem List is the source for the followin. Alcohol dependence 2. Atrial flutter 3. Long-term current use of anticoagulant 4. Admits alcohol use Drinking at recommended limits 5. Steatosis of liver elastrography 07/2021 with hepatomegaly and fibrosis; no focal lesions 6. Hypertension 7. Attention deficit hyperactivity disorder, predominantly inattentive type updated. 8. Impaired fasting glucose 9. Cataract, Unspecified 10. Degenerative joint disease Did not tolerate meloxicam 11. Major depressive disorder in partial remission , Dx updated. Denies any recent fever, chills, cough, chest pain, sob, dizziness. No recent UC visits or hospitalizations ETOH -not taking acamprostate bc on back order -drinking Alcohol a shot and beer twice in a day Aflutter, on apixaban -follows nonVA [facility] Subramenain s/p ablation 02/25/24; feeling good, more energy -now off metoprolol -no chest pain, sob, palpitations since Fatty liver -agrees to US and labs, last US 2021 -if fatty liver/abnml labs, agrees to Hepatology DEpression/PTSD -[facility] -bilateral hands, using Aquaphor Former smoker, quit 32 years ago -following with Arun Patel ALLERGIES Data on this list may not be complete. Please check [facility]. FACILITY ALLERGY/ADR -------- No Remote Allergy/ADR Data available for this patient [place] [facility] [place] [facility] No Known Allergies MEDICATIONS: Active and Recently Outpatient Medications (excluding Supplies): Active Outpatient Medications Status 1) ACAMPROSATE CA 333MG EC TAB TAKE TWO TABLETS BY MOUTH THREE HOLD TIMES DAILY WITH MEALS TO BE USED UNTIL REMAINDER OF REGULAR PRESCRIPTION ARRIVES IN THE MAIL Indication: FOR CRAVINGS 2) AMLODIPINE BESYLATE 5MG TAB TAKE ONE TABLET BY MOUTH ONCE ACTIVE DAILY FOR BLOOD PRESSURE/HEART, DO NOT TAKE WITH GRAPEFRUIT JUICE Indication: FOR HIGH BLOOD PRESSURE 3) APIXABAN 5MG TAB TAKE ONE TABLET BY MOUTH EVERY 12 HOURS ACTIVE Indication: FOR PREVENTION OF BLOOD CLOTS 4) BUPROPION HCL 300MG 24HR SA TAB TAKE ONE TABLET BY MOUTH ACTIVE (S) EVERY MORNING Indication: MOOD 5) FOLIC ACID 1MG TAB TAKE ONE TABLET BY MOUTH ONCE DAILY ACTIVE VITAMIN/NUTRITION SUPPLEMENT Indication: FOR ANEMIA FROM INADEQUATE FOLIC ACID 6) GABAPENTIN 400MG CAP TAKE ONE CAPSULE BY MOUTH AT BEDTIME ACTIVE Indication: AUD 7) HYDROPHILIC (EQV AQUAPHOR) TOP OINT APPLY LIBERAL AMOUNT ACTIVE TOPICALLY THREE TIMES DAILY NEEDED Indication: FOR DRY SKIN 8) LISINOPRIL 10MG TAB TAKE ONE TABLET BY MOUTH ONCE DAILY TO ACTIVE CONTROL BLOOD PRESSURE 9) LISINOPRIL 20MG TAB TAKE ONE TABLET BY MOUTH ONCE DAILY TO ACTIVE (S) CONTROL BLOOD PRESSURE Indication: FOR HIGH BLOOD PRESSURE 10) MULTIVITAMIN/MINERALS CAP/TAB TAKE ONE CAP/TAB BY MOUTH ONCE ACTIVE DAILY Indication: FOR VITAMINS 11) THIAMINE 100MG TAB TAKE TWO TABLETS BY MOUTH ONCE DAILY ACTIVE Indication: SUPPLEMENT Active Non-VA Medications Status 1) Non-VA ASCORBIC ACID 500MG TAB 500MG BY MOUTH DAILY ACTIVE 2) Non-VA FISH OIL 1000MG (500MG DHA/EPA) CAP 1000MG BY MOUTH ACTIVE DAILY 3) Non-VA HOMA CAP/TAB DOSE UNKNOWN BY MOUTH ONCE DAILY ACTIVE 4) Non-VA MULTIVITAMIN CAP/TAB 1 TABLET BY MOUTH ONCE DAILY ACTIVE 5) Non-VA OTHER CAP/TAB MEDIUM CHAIN TRIGLYCERIDES BY MOUTH ACTIVE ONCE DAILY 6) Non-VA OTHER CAP/TAB PLANT PROTEIN BY MOUTH ONCE DAILY ACTIVE 7) Non-VA ZINC 50MG (FROM SULFATE) CAP 220MG BY MOUTH DAILY ACTIVE 18 Total Medications SIGNIFICANT FAMILY HISTORY 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 colon ca -- popped a leak ; 94 Mother healthy, 93.5yo No FH Of Colon [place] SOCIAL HISTORY Tobacco denies Alcohol a shot and beer twice in a day PE General: NAD RESP clear to auscultation bilaterally CV RR S1 S2 (-) Pedal Edema GI BS + x 4, soft, nontender, nondistended, no rebound or guarding NEURO CN II-XII without focal deficit, gait steady without shuffle, MENTAL A&Ox3 Appropriate, Pleasant, Cooperative VITALS 97.4 F [36.3 C] (05/03/2024 10:09) 74 (05/03/2024 10:09) 20 (05/03/2024 10:09) 131/86 (05/03/2024 10:09) 0 (05/03/2024 10:09) 74 in [188.0 cm] (05/03/2024 10:09) 231 lb [104.78 kg] (05/03/2024 10:09) BMI: 29.7 A/P ETOH -not taking acamprostate bc on back order -drinking Alcohol a shot and beer twice in a day -encouraged moderation/cesssation, aware of recommended limits and health impacts. Aflutter, on apixaban -follows nonVA [facility] Subramenain s/p ablation 02/25/24; feeling good, more energy -now off metoprolol -no chest pain, sob, palpitations since Fatty liver -agrees to US and labs, last US 2021 -if fatty liver/abnml labs, agrees to Hepatology DEpression/PTSD -following with [facility] -bilateral hands, using Aquaphor Former smoker, quit 32 years ago -following with Arun Patel Medication Reconciliation: Outpatient: Has the patient been taking medications as documented in the EMLR? YES: The patient has been taking medications as documented in the EMLR. Essential Medication List for Review used to complete this medication reconciliation. INCLUDED IN THIS LIST: Alphabetical list of active outpatient prescriptions dispensed from this [place] (local) and dispensed from another [place] or [facility] facility (remote) as well as inpatient [...] with a VA or non-VA provider. /brenda/ ARIANNE CHERY NP NURSE PRACTITIONER Signed: 05/16/2024 11:02 ARIANNE CHERY [facility] [place]
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
--- OUTSIDE RECORDS SUMMARY | 2024-06-06 17:58 | XMS_ITS | Encounter Summary ---
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 ISSUES: TBD TIME SPENT: >/= 45 minutes, >/= 50% VP OUTCOMES/COORD CARE /es/ REAGAN MÁRQUEZ MD PSYCHIATRIST Signed: 06/25/2023 16:03 06/25/2023 ADDENDUM STATUS: COMPLETED ADDITIONAL UPDATES: 1. Ms. Franz and this physician have discussed the possibility of the patient's keeping his medications in a locked box and using a pill organizer with weekly supply. Ms. Franz has contacted the patient's and she is comfortable with this. Will add a pill organizer to the patient's discharge prescriptions. 2. Ms. Franz has provided to the patient a list of other supports including: - 24-hour Zoom links -[facility] website for meetings -[facility] -[facility] -[facility] -[place] and [place] drop in groups. 3. This physician has spoken with Lashonda Acosta TANIKA to review the case with her. She concurs with current management and informs the physician that she is retiring at the end of this month, which underscores indication for transition in prescriber to this campus on discharge. Ms. Acosta asks that the physician convey the news of her snf to the patient and that the physician tender her regards and best wishes to him. Physician has subsequently spoken with the patient, who accepts the news with equanimity and reiterates his preference for following up here. 4. SPC has reviewed referral and has declined to place HRF for suicide risk. /brenda/ REAGAN MÁRQUEZ MD PSYCHIATRIST Signed: 06/25/2023 17:12 REAGAN MÁRQUEZ CNTRL [facility]
--- OUTSIDE RECORDS SUMMARY | 2024-06-06 17:58 | XMS_ITS | Encounter Summary ---
Author Name [facility] [place] Organization [facility] [place] Address [address] [place] [id number] Care Team Providers Care Instructor Of Nursing Name Role Phone JOSSELIN CHERY Primary Care Provider Unavailab le Insurance [...] Name Patient's Relationship to Policy [facility]GANES[facility]ZA [facility] Aug 29, 2017 [id number] [facility] ORGANIZ COMMO [facility] Mar 01, 2014 [id number] [phone] Kathy ESTRADA SPOUSE MEDICARE (WNR) MEDICARE (M) PART A Sep 29, 2020 PART A [id number] Guanakito ESTRADA PATIENT MEDICARE (WNR) MEDICARE (M) PART A Sep 29, 2020 PART A [id number] [facility] [phone] Guanakito ESTRADA PATIENT Selected Encounter This section includes the information on record at CT for the Encounter. Date/Time Encounter Type Encounter Description Reason Pro vider Source Jun 01, 2024 09:03 AM Outpatient Encounter PRIMARY CARE/MEDICINE IHE Encounter Template Text not used by CT Plan of Treatment: Future Appointments (+ 6 months) and Future Tests (+/- 45 days) The Plan of Treatment section includes future care activities for the [facility] This section includes future appointments and future orders which are active, pending or scheduled. Future Appointments This section includes appointments that were scheduled to occur 6 months from the date of the Encounter, up to a maximum of 20 appointments. The data comes from all [facility]. Appointment Date/Time Appointment Type Appointme nt Facility Name Jun 08, 2024 03:30 PM [facility] Jun 20, 2024 02:00 PM [facility]BULAT[facility] [place] [facility] Aug 28, 2024 11:30 AM AMBULATORY - MEDICINE [facility] Nov 28, 2024 04:00 PM [facility]ATORY - [facility]INE [facility] Active, Pending, and Scheduled Orders This section includes a listing of several types of active, pending, and scheduled orders, including clinic medications orders, diagnostic test orders, procedure orders and consult orders; where the start date of the order is 45 days before the date of the Encounter or 45 days after the date of theEncounter. The data comes from all [facility]. Test Date/Time Test Type Test Details Facility Name May 03, 2024 12:00 AM Laboratory - Chemistry Order LIPID PANEL FASTING BLOOD (SST-SERUM) [facility] May 03, 2024 12:00 AM Laboratory - Chemistry Order CERULOPLASMIN BLOOD (SST-SERUM) [facility] May 03, 2024 12:00 AM Laboratory - Chemistry Order HEPATITIS B SURFACE ANTIBODY (HBsAb)- BLOOD (SST-SERUM) [facility] May 03, 2024 12:00 AM Laboratory - Chemistry Order HEPATITIS B SURFACE ANTIGEN (HBsAg)- BLOOD (SST-SERUM) [facility] May 03, 2024 12:00 AM Laboratory - Chemistry Order HEPATITIS C ANTIBODY (HCV)-[facility] BLOOD ([facility] SERUM) [facility] May 03, 2024 12:00 AM Laboratory - Chemistry Order FERRITIN BLOOD (SST-SERUM) [facility] May 03, 2024 12:00 AM Laboratory - Chemistry Order IRON & TIBC PANEL BLOOD (SST-SERUM) [facility] May 03, 2024 12:00 AM Laboratory - Chemistry Order RODY SCREEN/TITER BLOOD (SST-GOLD) SERUM [facility] May 03, 2024 12:00 AM Laboratory - Chemistry Order ALPHA 1 ANTITRYPSIN BLOOD (SST-SERUM) [facility] May 03, 2024 12:00 AM Laboratory - Chemistry Order LIVER FUNCTION BLOOD (SST-SERUM) [facility] May 03, 2024 12:00 AM Laboratory - Chemistry Order CBC AND DIFF (AUTO) BLOOD (LAV-BLOOD) [facility] May 03, 2024 12:00 AM Laboratory - Chemistry Order BASIC METABOLIC PANEL (non-fasting) BLOOD (SST-SERUM) [facility] May 03, 2024 12:00 AM Laboratory - Chemistry Order ALBUMIN BLOOD (SST-SERUM) [facility] May 03, 2024 12:00 AM Laboratory - Chemistry Order HEPATITIS A ANTIBODY (IGG) BLOOD (SST-SERUM) [facility] May 03, 2024 10:31 AM Laboratory - Chemistry Order PT & INR (PROTIME) BLOOD (BLUE-PLASMA) [facility] Jun 01, 2024 12:00 AM Laboratory - Chemistry Order SURGICAL PATH ORDER SURG PATH SPEC. UNKNOWN SP [facility] Jun 06, 2024 11:39 AM Consult Order SURGERY/CWM OUTPT Cons Clinical Manager's Choice [facility] Advance Directives: All historical and [...] 25, 2023 ADVANCE DIRECTIVE DISCUSSION AMAYA FRANZ [facility] Aug 06, 2017 ADVANCE DIRECTIVE ABDIRASHID [place] [facility] Radiology Reports: +/- 30 days [...] the Encounter. The data comes from all CT treatment facilities. 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 Previously, this measured 1.54 m/s. SRU Recommendations for interpretations of Liver Stiffness Values [...] is normal. No gallstones are identified. The light industrial reports a negative sonographic Carranza sign is [...] Primary Interpreting Staff: MAVERICK SANCHEZ JR, Radiologist (Sys Dir) /MAVERICK DU JR CT CNT WSTRN [facility] Pathology Reports: +/- 30 days of the encounter Pathology Reports For cases when an order for pathology services may have been completed prior to the date of the Encounter, the report list includes the Pathology Reports that were completed up to 30 days before dateof the Encounter. For cases when an order for pathology services may have been completed after the date of the Encounter, the report list also includes the Pathology Reports that were completed up to30 days after date of the Encounter. The data comes from all CT treatment facilities. Date/Time Pathology Report Provider Source Jun 06, 2024 08:56 AM LR SURGICAL PATHOLOGY REPORT: LOCAL TITLE: LR SURGICAL PATHOLOGY REPORT STANDARD TITLE: PATHOLOGY DIAGNOSTIC STUDY REPORT DATE OF NOTE: JUN 06, 2024@08:56:18 ENTRY DATE: JUN 06, 2024@08:56:18 AUTHOR: MERVIN NGUYEN MD EXP COSIGNER: URGENCY: STATUS: COMPLETED $APHDR Reporting Lab: CT CNTRL WSTRN [facility] [CLIA# [id number]] [address] [place] [id number] - - - - - - - - - - - - - - - - - - - - - - - - - - - - - - - - - - - - - - - - MEDICAL RECORD SURGICAL PATHOLOGY - - - - - - - - - - - - - - - - - - - - - - - - - - - - - - - - - - - - - - - - PATHOLOGY REPORT Accession No. SPATH [id number] 150 - - - - - - - - - - - - - - - - - - - - - - - - - - - - - - - - - - - - - - - - $TEXT Submitted by: GABY VALVERDE Date obtained: Jun 01, 2024 13:00 - - - - - - - - - - - - - - - - - - - - - - - - - - - - - - - - - - - - - - - - Specimen (Received Jun 01, 2024 14:23): SKIN,BACK - - - - - - - - - - - - - - - - - - - - - - - - - - - - - - - - - - - - - - - - BRIEF CLINICAL HISTORY: SKIN BIOPSY LEFT UPPER BACK 7mm HYPERPIGMENTED MACULE WITH IRREGULAR BORDERS - - - - - - - - - - - - - - - - - - - - - - - - - - - - - - - - - - - - - - - - PREOPERATIVE DIAGNOSIS: PIGMENTED AK VS DYSPLASTIC NEVI - - - - - - - - - - - - - - - - - - - - - - - - - - - - - - - - - - - - - - - - OPERATIVE FINDINGS: - - - - - - - - - - - - - - - - - - - - - - - - - - - - - - - - - - - - - - - - POSTOPERATIVE DIAGNOSIS: Surgeon/physician: GABY VALVERDE =-=-=-=-=-=-=-=-=-=-=-=-=-=-= -=-=-=-=-=-=-=-=-=-=-=-=-=-=- =-=-=-=-=-=-=-=-=-=-= - - - - - - - - - - - - - - - - - - - - - - - - - - - - - - - - - - - - - - - - PATHOLOGY REPORT Accession No. [facility] 150 - - - - - - - - - - - - - - - - - - - - - - - - - - - - - - - - - - - - - - - - Gross description: The specimen is recieved from [facility], [facility] [address] [facility] 6685;;1;Guanakito ESTRADA Received in formalin labeled with the patient's name, social security number, and left upper back is an unoriented, carrillo-woodward skin shave measuring 1.1 x 1.0 x 0.1 cm. There is an moderately well-circumscribed, variegated carrillo to dark brown, macular lesion extending to the margins measuring 0.9 x 0.8 cm. Inked orange. The specimen is entirely submitted with tips in cassette 1 and body cross sections in cassette 2. 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 Note: Miltiplex immunohistochemical stain, SOX10/MART-1, supports the histologic diagnosis. Complete excision is recommended for further evaluation and treatment. Multiple tissue levels examined. Berna Ring MD has reviewed select slides and concurs with the diagnosis. Amanda Nguyen MD conveyed diagnosis of malignant melanoma in situ with confirmation to Corona Valverde NP on June 06, 2024 at 8.30 AM. CPT codes 97728, 00241 /brenda/ MERVIN NGUYEN MD Board Certified Dermatopathologist Signed Jun 06, 2024@08:56 Performing Laboratory: Surgical Pathology Report Performed By: [facility] [CLIA# [id number]] [address] [place] [address] $FTR - - - - - - - - - - - - - - - - - - - - - - - - - - - - - - - - - - - - - - - - (End of report) MERVIN NGUYEN MD, MD Date Jun 06, 2024 - - - - - - - - - - - - - - - - - - - - - - - - - - - - - - - - - - - - - - - - EMA ESTRADA STANDARD FORM 515 ID:[id number] SEX:M :1955 AGE: 68 LOC:[facility] DERMATOLOGY STONECUTTER ASSISTANT 1 PM PCP: Josselin Chery /brenda/ MERVIN NGUYEN MD Board Certified Dermatopathologist Signed: 06/06/2024 08:56 MERVIN NGUYEN MD [facility] Encounter Notes: All associated encounter notes This section contains the clinical notes associated to the Encounter. Date/Time Encounter Note(s) Provider Source Jun 01, 2024 10:31 AM ADDENDUM: LOCAL TITLE: Addendum STANDARD TITLE: ADDENDUM DATE OF NOTE: JUN 01, 2024@10:31:45 ENTRY DATE: JUN 01, 2024@10:31:45 AUTHOR: MARIANO DOWNEY EXP COSIGNER: URGENCY: STATUS: COMPLETED FYI to PCP. /MARY RuanoN,RN-BC REGISTERED NURSE (RN) Signed: 06/01/2024 10:31 Receipt Acknowledged By: 06/01/2024 15:59 /brenda/ JOSSELIN CHERY NP NURSE PRACTITIONER ====== --- Original Document --- 06/01/24 PRIMARY CARE SECURE MESSAGING: ------Original Message ------- Sent: 06/01/2024 08:57 AM ET From: EMA ESTRADA To: Em CHERY_PRIMARY CARE_[facility] Subject: Test:Blood work Good morning Vanessa , i was out of the country on my 1st vacation in 8 yrs last wk , i received your letter read it on wednesday . Right now my state of mind is very good i needed that time off . Put the order in and ill do blood next wk in [place] its just easier for me . 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 /brenda/ SATISH REYES Signed: 06/01/2024 09:03 Receipt Acknowledged By: * AWAITING SIGNATURE * TANIAEMMA 06/01/2024 10:31 /brenda/ JEFFERSON ALCALA,RN-BC REGISTERED NURSE (RN) MARIANO DOWNEY CT [facility]TRL [facility] [place] [facility] Jun 01, 2024 09:03 AM PRIMARY CARE SECUR E MESSAGING: LOCAL TITLE: PRIMARY CARE SECURE MESSAGING STANDARD TITLE: PRIMARY CARE SECURE MESSAGING DATE OF NOTE: JUN 01, 2024@09:03 ENTRY DATE: JUN 01, 2024@09:03:29 AUTHOR: SATISH PADGETT EXP COSIGNER: URGENCY: STATUS: COMPLETED PRIMARY CARE SECURE MESSAGING Has ADDENDA ------Original Message ------- Sent: 06/01/2024 08:57 AM ET From: EMA ESTRADA To: Em CHERY_PRIMARY CARE_[facility] Subject: Test:Blood work Good morning Vanessa , i was out of the country on my 1st vacation in 8 yrs last wk , i received your letter read it on wednesday . Right now my state of mind is very good i needed that time off . Put the order in and ill do blood next wk in [place] its just easier for me . 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 /es/ SATISH REYES Signed: 06/01/2024 09:03 Receipt Acknowledged By: 06/05/2024 11:42 /es/ EMMA MARIN LPN LPN 06/01/2024 10:31 /es/ JEFFERSON ALCAAL,RN-BC REGISTERED NURSE (RN) 06/01/2024 ADDENDUM STATUS: COMPLETED FYI to PCP. /brenda/ JEFFERSON ALCALA,RN-BC REGISTERED NURSE (RN) Signed: 06/01/2024 10:31 Receipt Acknowledged By: 06/01/2024 15:59 /es/ JOSSELIN CHERY, ADELITA NURSE PRACTITIONER SATISH PADGETT CNTRL [facility]
--- OUTSIDE RECORDS SUMMARY | 2024-06-06 17:58 | XMS_ITS ---
Author Name [facility] [place] Address [address] [place] [id number] Care Team Providers Care Roof Technician Name Role Phone ARIANNE CHERY Primary Care [...] Rizvi's Name Patient's Relationship to Policy Rizvi [facility] CE [employer] Aug 29, 2017 [id number] [phone] Kathy ESTRADA [facility] CE ORGANIZ COMMO [facility] Mar 01, 2014 [id number] [phone] Kathy ESTRADA SPOUSE MEDICARE (WNR) MEDICARE (M) PART A Sep 29, 2020 PART A [id number] [facility] [phone] Guanakito ESTRADA PATIENT MEDICARE (WNR) MEDICARE (M) PART A Sep 29, 2020 PART A [id number] Guanaktio ESTRADA PATIENT Selected Encounter This section includes the information on record at [place] for the Encounter. Date/Time Encounter Type Encounter Description Reason Provider Source Aug 13, 2023 03:30 PM OFFICE O/P EST MOD 30 MIN [facility] - IND ICD-10-CM F32.9 Major depressive disorder, single episode, unspecified ROSALINE BROOKE Kathy Encounter Template Text not used by AR Assessments - Encounter Diagnoses This section includes the primary and secondary diagnoses documented for the Encounter. Date/Time Primary/Secondary Diagnosis Diagnosis Name Provider Source Aug 16, 2023 09:20 AM PRIMARY Major depressive disorder, single episode, unspecified [facility] [place] [facility] Aug 16, 2023 09:20 AM SECONDARY Alcohol dependence, in remission [facility] Aug 16, 2023 09:20 AM SECONDARY Attn-defct hyperactivity disorder, predom inattentive type [facility] Plan of Treatment: Future Appointments (+ 6 months) and Future Tests (+/- 45 days) The Plan of Treatment section includes future care activities for the patient [facility] This section includes future appointments and future orders which are active, pending or scheduled. Future Appointments This section includes appointments that were scheduled to occur 6 months from the date of the Encounter, up to a maximum of 20 appointments. The data comes from all [place] treatment facilities. Appointment Date/Time Appointment Type Appointme nt Facility Name Aug 16, 2023 11:00 AM AMBULATORY - MEDICINE [facility] [place] [facility] Aug 27, 2023 11:30 AM AMBULATORY - MEDICINE [facility] [place] [facility] Sep 14, 2023 09:30 AM AMBULATORY - MEDICINE [facility] [place] [facility] Sep 17, 2023 03:30 PM AMBULATORY - PSYCHIATRY [facility] [place] [facility] Oct 05, 2023 01:00 PM AMBULATORY - MEDICINE [facility] [place] [facility] Oct 14, 2023 02:00 PM AMBULATORY - NONE [facility] [place] [facility] Nov 12, 2023 03:30 PM [facility] [place] [facility] Nov 25, 2023 07:30 AM AMBULATORY - REHAB MEDICIN [facility] [place] [facility] Nov 25, 2023 08:30 AM AMBULATORY - PSYCHIATRY [facility] [place] [facility] Nov 25, 2023 11:00 AM [facility] Dec 03, 2023 07:30 AM [facility]BULAT[facility] - [facility]IN [facility] Dec 09, 2023 08:15 AM AMBULATORY - REHAB MEDICIN E [facility] [place] [facility] Dec 15, 2023 01:00 PM AMBULATORY - REHAB MEDICIN E [facility] [place] [facility] Dec 24, 2023 03:00 PM AMBULATORY - PS[facility]CHIATRY [facility] Dec 31, 2023 02:30 PM AMBULATORY - REHAB MEDICIN E [facility] [place] [facility] Jan 17, 2024 08:30 AM AMBULATORY - MEDICINE [facility] [place] [facility] Jan 17, 2024 09:45 AM AMBULATORY - MEDICINE [facility] [place] [facility] Active, Pending, and Scheduled Orders This section includes a listing of several types of active, pending, and scheduled orders, including clinic medications orders, diagnostic test orders, procedure orders and consult orders; where the start date of the order is 45 days before the date of the Encounter or 45 days after the date of theEncounter. The data comes from all [place] treatment facilities. Test Date/Time Test Type Test Details Facility Name Aug 10, 2023 12:00 AM Laboratory - Chemi stry Order VITAMIN D (25-OH) BLOOD (SST-SERUM) [facility] Aug 10, 2023 12:00 AM Laboratory - Chemi stry Order MICROALBUMIN CREATININE RATIO PANEL URINE (RANDOM) [facility] Aug 10, 2023 12:00 AM Laboratory - Chemi stry Order BASIC METABOLIC PANEL (fasting) BLOOD (SST-SERUM) [facility] Aug 10, 2023 12:00 AM Laboratory - Chemi stry Order LIPID PANEL FASTING BLOOD (SST-SERUM) [facility] Aug 10, 2023 12:00 AM Laboratory - Chemi stry Order LIVER FUNCTION BLOOD (SST-SERUM) [facility] Aug 10, 2023 12:00 AM Laboratory - Chemi stry Order HEMOGLOBIN A1C PANEL BLOOD (LAV-BLOOD) [facility] Aug 10, 2023 12:00 AM Laboratory - Chemi stry Order CBC AND DIFF (AUTO) BLOOD (LAV-BLOOD) [facility] Aug 10, 2023 12:00 AM Laboratory - Chemi stry Order TSH BLOOD (SST-SERUM) [facility] Lab Results: +/- 30 days of the encounter This section includes the Chemistry and Hematology Lab Results on record with AR for the patient. Radiology Reports and Pathology Reports are provided separately, in subsequent sections. Lab Results This section contains the Chemistry/Hematology Results that were resulted 30 days before or 30 daysafter the date of the Encounter. Date/Time Source Result Type Result - Unit Interpretation Reference Range Comment Sep 09, 2023 07:34 AM [facility] HEMOGLOBIN A1C PANEL Specimen Type: BLOOD [...] Oct 06, 2022 01:18 PM Reporting Lab: [facility] [address] [facility] [address] Performing Lab: [facility] [address] [facility] [address] HEMOGLOBIN A1C 5.2 4.0-5.6 Sep 09, 2023 07:34 AM [facility] LIPID PANEL FASTING Specimen Type: SERUM No comment entered. Ordering Provider: VALERIE GARCIA Report Released Date/Time: Oct 06, 2022 01:18 PM Reporting Lab: [facility] [address] [facility] [address] Performing Lab: [address] [address] CHOLESTEROL 187 mg/dL TRIGLYCERIDE 138 mg/dL 0-150 LDL calculated 121 mg/dL 0-129 CHOL/HDL 4.9 HDL CHOLESTEROL 38 mg/dL L 40-60 Sep 09, 2023 07:34 AM [facility] LIVER FUNCTION Specimen Type: SERUM No comment entered. Ordering Provider: VALERIE GARCIA Report Released Date/Time: Oct 06, 2022 01:18 PM Reporting Lab: [facility] [address] [facility] [address] Performing Lab: [facility] [address] [facility] [address] PROTEIN,TOTAL 7.2 g/dL 6.0-8.3 ALBUMIN 4.2 g/dL 3.5-5.0 ALKALINE PHOSPHATASE 70 U/L 40-150 AST 17 U/L 5-34 ALT 19 U/L BILIRUBIN, TOTAL 0.9 mg/dL 0.2-1.2 Sep 09, 2023 07:34 AM [facility] BASIC METABOLIC PANEL (fasting) Specimen Type: SERUM No comment entered. Ordering Provider: VALERIE GARCIA Report Released Date/Time: Oct 06, 2022 01:18 PM Reporting Lab: [address] [address] Performing Lab: [address] [address] UREA NITROGEN 13 mg/dL 7-25 GLUCOSE 101 mg/dL H 65-100 SODIUM 137 mmol/L 135-145 POTASSIUM 4.6 mmol/L 3.5-5.0 CHLORIDE 105 mmol/L 100-110 CO2 23 meq/L 20-30 CREATININE, Serum 0.86 mg/dL 0.50-1.40 eGFR(CKD-EPI 2020) >90 mL/min >60 Sep 09, 2023 07:34 AM [facility] TSH Specimen Type: SERUM No comment entered. Ordering Provider: VALERIE GARCIA Report Released Date/Time: Oct 06, 2022 01:18 PM Reporting Lab: [address] [address] Performing Lab: [address] [address] TSH 1.02 u[IU]/mL 0.35-5.00 Sep 09, 2023 07:34 AM [facility] PSA Specimen Type: SERUM No comment entered. Ordering Provider: VALERIE GARCIA Report Released Date/Time: Oct 06, 2022 01:18 PM Reporting Lab: [address] [address] Performing Lab: [address] [address] PSA 1.33 ng/mL 0.00-4.00 Sep 09, 2023 07:34 AM [facility] MICROALBUMIN CREATININE RATIO PANEL Specimen Type: URINE No comment entered. Ordering Provider: VALERIE GARCIA Report Released Date/Time: Oct 06, 2022 01:19 PM Reporting Lab: [address] [address] Performing Lab: [address] [address] MICROALBUMIN/C REATININE RATIO 11.5 mg/g 0-29.9 MICROALBUMIN,Q UANTITATIVE 1.1 mg/dL RR UNAVAIL CREATININE URINE 95.90 mg/dL Sep 09, 2023 07:34 AM [facility] CBC AND DIFF (AUTO) Specimen Type: BLOOD No comment entered. Ordering Provider: VALERIE GARCIA Report Released Date/Time: Oct 06, 2022 01:18 PM Reporting Lab: [address] [address] Performing Lab: [address] [address] WBC 5.88 10*3/uL 4.50-11.00 RBC 5.14 10*6/uL [...] ALL of a patient's completed or amended [place] Advance and Rescinded Directives. The entries below indicate that a directive exists for the patient, but an actual copy is not included with this document. The data comes from all [place] facilities. Date Advance Directives Provider Source Jun 25, 2023 ADVANCE DIRECTIVE DISCUSSION AMAYA FRANZ [facility] [place] [facility] Aug 06, 2017 ADVANCE DIRECTIVE ABDIRASHID [place] [employer] Encounter Notes: All associated encounter notes This section contains the clinical notes associated to the Encounter. Date/Time Encounter Note(s) Provider Source Aug 13, 2023 03:34 PM PRIMARY CARE NURSE PRACTITIONER OUTPATIENT NOTE: LOCAL TITLE: NURSE PRACTITIONER OUTPATIENT NOTE STANDARD TITLE: PRIMARY CARE NURSE PRACTITIONER OUTPATIENT NOTE DATE OF NOTE: AUG 13, 2023@15:34 ENTRY DATE: AUG 13, 2023@15:34:32 AUTHOR: LEXI BROOKE COSIGNER: URGENCY: STATUS: COMPLETED OUTPATIENT MENTAL HEALTH CLINIC: FOLLOW-UP HPI: EMA ESTRADA, a 67 y/o male previously diagnosed with Major depressive disorder, Attention deficit hyperactivity disorder and Alcohol Use Disorder presents for [facility] Follow-Up appointment. Last seen by This Provider on 07/16/23 reports mood as I've been okay, but tired. Adds Otherwise I'm doing fine. Denies significant symptoms of depression aside from fatigue and renewed difficulty in managing ADHD symptoms without medication. Observes I got no umph or nothing. I really got to push myself. 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 Agrees that it would be better not to reinitiate an ADHD medication until cardiac workup is complete. 8 weeks without ETOH. Reports transient symptoms in the evening which are manageable, per [facility]. Only taking morning dose [666 MG] of acamprosate because of GI side effects. Agrees to switch to 333 MG TID to see if that is better tolerated and provides more coverage for cravings. Declines interest in AA or another MSG: they don't work for me. I have too much going on. Sleep has been okay. 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 In [place] [facility] for a week or two. MENTAL STATUS [...] memory grossly intact to conversational testing Mood: good but more tired Affect: mood congruent MEDICAL HISTORY: Active Problem [...] Remote Allergy/ADR Data available for this patient [facility] No Known Allergies [...] DO NOT TAKE WITH GRAPEFRUIT JUICE 3) BUPROPION HCL 200MG 12HR SA TAB TAKE ONE TABLET BY ACTIVE MOUTH ONCE DAILY 4) CICLOPIROX 8% TOP SOLN APPLY SMALL AMOUNT TOPICALLY ACTIVE ONCE DAILY WIPE OFF WITH ALCOHOL EVERY 7 DAYS; MAX USE 12 MONTHS 5) LISINOPRIL 10MG TAB TAKE ONE TABLET BY MOUTH ONCE ACTIVE DAILY TO CONTROL BLOOD PRESSURE 6) METOPROLOL SUCCINATE 50MG SA TAB TAKE ONE TABLET BY ACTIVE MOUTH AT BEDTIME FOR HIGH BLOOD PRESSURE (NOTE DOSE) 7) MOISTURIZING LOTION APPLY LIBERAL AMOUNT TOPICALLY ACTIVE ONCE DAILY NEEDED FOR DRY SKIN 8) SUNSCREEN 30-50/AVOBENZONE/PABA-F LOTION APPLY A ACTIVE LIBERAL [...] SULFATE) CAP 220MG BY MOUTH ACTIVE DAILY 15 Total Medications LABS AND STUDIES: FOLATE (WR): 17.13 CHOLESTEROL: 181 TRIGLYCERIDE: 180 H LDL CHOL: 106 CHOL/HDL RATIO: 4.6 VIT. B12 (WROX): 647 HDL: 39 L TSH (Access): 2.11 HGB A1C (WR): 5.3 PROTEIN,TOTAL: 7.3 ALBUMIN: 4.1 ALKALINE PHOSPHATASE: 80 SGOT: [...] 30.0 Neut %: 63.0 Lymph %: 25.2 [place] %: 9.5 Eos %: 1.1 Baso %: 0.6 Neut, Abs: 5.34 Lymph, Abs: 2.13 [place], Abs: 0.80 Eos, Abs: 0.09 Baso, Abs: 0.05 Immature Granulocytes %: 0.6 Immature Granulocytes, Abs: 0.05 ETHANOL: <10 SAFETY ASSESSMENT: No acute safety concerns. Convincingly denies any thoughts, intents, or plans to harm self or others. Chronic risk is elevated by status and mental illness but is currently mitigated by participation in treatment and demonstration of help-seeking behaviors. IMPRESSION: Consider modafinil or an alternative ADHD medication given cardiac concerns. [facility] reminded that reinitiating a stimulant is possible but that there are significant concerns about doing so. Agrees to wait until Consult with jewelry appraiser. Declined increasing bupropion to address daytime lethargy. Also agreed to try taking acamprosate 333 MG TID versus 666 MG once per day in order to attempt to strike a better balance between benefit and reported side effects. No acute safety concerns Diagnosis: Attention deficit hyperactivity disorder, predominantly inattentive type Major depressive disorder, recurrent, unspecified Alcohol Use Disorder, severe, in early remission PLAN: 1) CONTINUE ACAMPROSATE 666 MG PO TID 2) CONTINUE BUPROPION SR, 200 MG PO DAILY Labs: none today Follow-Up: 09/17/23 Discussed risks and benefits of proposed medication treatments including FDA approved indications and off-label uses, as well as common and severe side effects. comprehended all information discussed, had opportunity to ask questions which were answered to their satisfaction, and voluntarily and without duress agreed to trial as documented. CONTACT AND CRISIS INFO: informed that This Provider can be contacted at , [phone] or via Secure Messaging. 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 CODING: Total time today was 30 minutes, which included an in-person visit with the patient, providing counseling and education, and time spent reviewing the record, ordering meds, completing documentation, and coordinating care. CLINICAL REMINDERS: Medication Reconciliation: Outpatient: Has the patient been taking medications as documented in the EMLR? YES: The patient has been taking medications as documented in the EMLR. Essential Medication List for Review used to complete this medication reconciliation. INCLUDED IN THIS LIST: Alphabetical list of active outpatient prescriptions dispensed from this AR (local) and dispensed from another [place] or [facility] facility (remote) as well as inpatient orders [...] BROOKE Psychiatric Mental Health Nurse Practitioner Signed: 08/16/2023 09:18 LEXI BROOKE [facility]
--- OUTSIDE RECORDS SUMMARY | 2024-06-06 17:58 | XMS_ITS | Encounter Summary ---
Author Name [facility] Organization [facility] [place] Address [address] [place] [id number] Care Team Providers Care Weaver Apprentice Name Role Phone ARIANNE CHERY Primary Care [...] Name Patient's Relationship to Policy [facility] [employer] [employer] Aug 29, 2017 [id number] Kathy ESTRADA [facility] CE ORGANIZ COMMO [facility] Mar 01, 2014 [id number] [phone] Kathy ESTRADA [employer] MEDICARE (WNR) MEDICARE (M) PART A Sep 29, 2020 PART A [id number] [facility] [phone] [place] ESTRAAD PATIENT MEDICARE (WNR) MEDICARE (M) PART A Sep 29, 2020 PART A [id number] [place] ESTRADA PATIENT Selected Encounter This section includes the information on record at DC for the Encounter. Date/Time Encounter Type Encounter Description Reason Provider Source Sep 14, 2023 09:30 AM OFFICE O/P EST MOD 30 MIN PRIMARY CARE/MEDICINE ICD-10-CM M54.2 Cervicalgia JOSEVALERIE Kathy Encounter Template Text not used by DC Assessments - Encounter Diagnoses This section includes the primary and secondary diagnoses documented for the Encounter. Date/Time Primary/Secondary Diagnosis Diagnosis Name Provider Source Sep 14, 2023 10:31 AM PRIMARY Cervicalgia BOOGIE GARCIA [facility] Plan of Treatment: Future Appointments (+ 6 months) and Future Tests (+/- 45 days) The Plan of Treatment section includes future care activities for the patient from all DC treatmentfacilities. This section includes future appointments and future orders which are active, pending or scheduled. Future Appointments This section includes appointments that were scheduled to occur 6 months from the date of the Encounter, up to a maximum of 20 appointments. The data comes from all DC treatment facilities. Appointment Date/Time Appointment Type Appointme nt Facility Name Sep 17, 2023 03:30 PM AMBULATORY [facility]AT[facility] [place] [facility] Oct 05, 2023 01:00 PM AMBULATORY [facility] MEDICINE [facility] [place] [facility] Oct 14, 2023 02:00 PM AMBULATORY - NONE [facility] [place] [facility] Nov 12, 2023 03:30 PM AMBULATORY [facility] PS[facility]IAT[facility] [place] [facility] Nov 25, 2023 07:30 AM AMBULATORY - REHAB MEDICIN E [facility] [place] [facility] Nov 25, 2023 08:30 AM AMBULATORY [facility] PS[facility]IAT[facility] [place] [facility] Nov 25, 2023 11:00 AM AMBULATORY - MEDICINE [facility] Dec 03, 2023 07:30 AM AMBULATORY - REHAB MEDICIN E [facility] [place] [facility] Dec 09, 2023 08:15 AM AMBULATORY - REHAB MEDICIN E [facility] [place] [facility] Dec 15, 2023 01:00 PM AMBULATORY - REHAB MEDICIN E [facility] [place] [facility] Dec 24, 2023 03:00 PM AMBULATORY - PS[facility]CHIATRY [facility] [place] [facility] Dec 31, 2023 02:30 PM AMBULAT[facility] [place] Jan 17, 2024 08:30 AM [facility] Jan 17, 2024 09:45 AM [facility] Feb 17, 2024 03:30 PM AMBULATORY - PSYCHIATRY [facility] Active, Pending, and Scheduled Orders This section includes a listing of several types of active, pending, and scheduled orders, including clinic medications orders, diagnostic test orders, procedure orders and consult orders; where the start date of the order is 45 days before the date of the Encounter or 45 days after the date of theEncounter. The data comes from all DC treatment facilities. Test Date/Time Test Type Test Details Facility Name Aug 10, 2023 12:00 AM Laboratory - Chemi stry Order VITAMIN D (25-OH) BLOOD (SST-SERUM) [facility] Aug 10, 2023 12:00 AM Laboratory - Chemi stry Order MICROALBUMIN CREATININE RATIO PANEL URINE (RANDOM) [facility] Aug 10, 2023 12:00 AM Laboratory - Chemi stry Order LIPID PANEL FASTING BLOOD (SST-SERUM) [facility] 11, 2024 12:00 AM Laboratory - Chemi stry Order BASIC METABOLIC PANEL (fasting) BLOOD (SST-SERUM) [facility] 11, 2024 12:00 AM Laboratory - Chemi stry Order LIVER FUNCTION BLOOD (SST-SERUM) [facility] 11, 2024 12:00 AM Laboratory - Chemi stry Order CBC AND DIFF (AUTO) BLOOD (LAV-BLOOD) [facility] 11, 2024 12:00 AM Laboratory - Chemi stry Order HEMOGLOBIN A1C PANEL BLOOD (LAV-BLOOD) [facility] 11, 2024 12:00 AM Laboratory - Chemi stry Order TSH BLOOD (SST-SERUM) [facility] Lab Results: +/- 30 days of the encounter This section includes the Chemistry and Hematology Lab Results on record with DC for the patient. Radiology Reports and Pathology Reports are provided separately, in subsequent sections. Lab Results This section contains the Chemistry/Hematology Results that were resulted 30 days before or 30 daysafter the date of the Encounter. Date/Time Source Result Type Result - Unit Interpretation Reference Range Comment Sep 09, 2023 07:34 AM [facility] LIPID PANEL FASTING Specimen Type: SERUM No comment entered. Ordering Provider: VALERIE GARCIA Report Released Date/Time: Oct 06, 2022 01:18 PM Reporting Lab: [facility] [address] [facility] [address] Performing Lab: [facility] [address] [facility] [address] CHOLESTEROL 187 mg/dL TRIGLYCERIDE 138 mg/dL 0-150 LDL calculated 121 mg/dL 0-129 CHOL/HDL 4.9 HDL CHOLESTEROL 38 mg/dL L 40-60 Sep 09, 2023 07:34 AM [facility] HEMOGLOBIN A1C PANEL Specimen Type: BLOOD Comment: [...] Oct 06, 2022 01:18 PM Reporting Lab: [address] [address] Performing Lab: [address] [address] HEMOGLOBIN A1C 5.2 4.0-5.6 Sep 09, 2023 07:34 AM [facility] BASIC METABOLIC PANEL (fasting) Specimen Type: SERUM No comment entered. Ordering Provider: VALERIE GARCIA Report Released Date/Time: Oct 06, 2022 01:18 PM Reporting Lab: [address] [address] Performing Lab: [address] [address] UREA NITROGEN 13 mg/dL 7-25 GLUCOSE 101 mg/dL H 65-100 SODIUM 137 mmol/L 135-145 POTASSIUM 4.6 mmol/L 3.5-5.0 CHLORIDE 105 mmol/L 100-110 CO2 23 meq/L 20-30 CREATININE, Serum 0.86 mg/dL 0.50-1.40 eGFR(CKD-EPI 2020) >90 mL/min >60 Sep 09, 2023 07:34 AM [facility] LIVER FUNCTION Specimen Type: SERUM No comment entered. Ordering Provider: VALERIE GARCIA Report Released Date/Time: Oct 06, 2022 01:18 PM Reporting Lab: [facility] [address] [facility] [address] Performing Lab: [address] [address] PROTEIN,TOTAL 7.2 g/dL 6.0-8.3 ALBUMIN 4.2 g/dL 3.5-5.0 ALKALINE PHOSPHATASE 70 U/L 40-150 AST 17 U/L 5-34 ALT 19 U/L BILIRUBIN, TOTAL 0.9 mg/dL 0.2-1.2 Sep 09, 2023 07:34 AM [facility] TSH Specimen Type: SERUM No comment entered. Ordering Provider: VALERIE GARCIA Report Released Date/Time: Oct 06, 2022 01:18 PM Reporting Lab: [facility] [address] [facility] [address] Performing Lab: [address] [address] TSH 1.02 u[IU]/mL 0.35-5.00 Sep 09, 2023 07:34 AM [facility] PSA Specimen Type: SERUM No comment entered. Ordering Provider: VALERIE GARCIA Report Released Date/Time: Oct 06, 2022 01:18 PM Reporting Lab: [facility] [address] [facility] [address] Performing Lab: [address] [address] PSA 1.33 ng/mL 0.00-4.00 Sep 09, 2023 07:34 AM [facility] MICROALBUMIN CREATININE RATIO PANEL Specimen Type: URINE No comment entered. Ordering Provider: VALERIE GARCIA Report Released Date/Time: Oct 06, 2022 01:19 PM Reporting Lab: [facility] [address] [facility] [address] Performing Lab: [facility] [address] [facility] [address] MICROALBUMIN/C REATININE RATIO 11.5 mg/g 0-29.9 MICROALBUMIN,Q UANTITATIVE 1.1 mg/dL RR UNAVAIL CREATININE URINE 95.90 mg/dL Sep 09, 2023 07:34 AM [facility] CBC AND DIFF (AUTO) Specimen Type: BLOOD No comment entered. Ordering Provider: VALERIE GARCIA Report Released Date/Time: Oct 06, 2022 01:18 PM Reporting Lab: [facility] [address] [facility] [address] Performing Lab: [address] [address] WBC 5.88 10*3/uL 4.50-11.00 RBC 5.14 10*6/uL [...] and tobacco- related health factors from the DC facility where the Encounter took place. Current Smoking Status This section includes the most current smoking, or tobacco-related health factor, from the DC facility where the Encounter took place. Date/Time Current Smoking Status Comment Facil ity Jan 13, 2023 03:30 PM VA-TOBACCO FORMER USER [facility] Tobacco Use History This section includes a history of the smoking, or tobacco-related health factors, that were collected on or before the date of the Encounter. The data comes from the DC facility where the Encounter took place. Date/Time Smoking Status/Tobacco Use Comment F acility Jan 13, 2023 03:30 PM VA-TOBACCO QUIT 15 YRS OR MORE [facility] Feb 03, 2022 09:30 AM VA-TOBACCO FORMER USER [facility] Feb 03, 2022 09:30 AM VA-TOBACCO QUIT 15 YRS OR MORE [facility] Jan 28, 2021 09:00 AM VA-TOBACCO FORMER USER [facility] Jan 28, 2021 09:00 AM VA-TOBACCO QUIT 15 YRS OR MORE [facility] Feb 19, 2020 01:00 PM VA-TOBACCO FORMER USER [facility] Feb 19, 2020 01:00 PM VA-TOBACCO QUIT 15 YRS OR MORE [facility] May 02, 2018 09:49 AM VA-TOBACCO FORMER USER [facility] May 02, 2018 09:49 AM VA-TOBACCO QUIT 15 YRS OR MORE [facility] Jun 03, 2017 09:23 AM QUIT TOBACCO USE 1-7 YEARS AGO [facility] June 30, 2016 09:51 AM QUIT TOBACCO USE > 7 YEARS AGO 24 yrs ago [facility] Nov 07, 2015 01:29 PM QUIT TOBACCO USE 1-7 YEARS AGO [facility] Sep 30, 2015 01:53 PM QUIT TOBACCO USE 1-7 YEARS AGO [facility] Sep 13, 2014 02:46 PM QUIT TOBACCO USE > 7 YEARS AGO [facility] Advance Directives: All historical and current Section Date Range: From patient's date of to the date document was created. This section includes ALL of a patient's completed or amended VA Advance and Rescinded Directives. The entries below indicate that a directive exists for the patient, but an actual copy is not included with this document. The data comes from all DC facilities. Date Advance Directives Provider Source Jun 25, 2023 ADVANCE DIRECTIVE DISCUSSION OSEIAMAYA Haskins [facility] Aug 06, 2017 ADVANCE DIRECTIVE ABDIRASHID [facility] Radiology Reports: +/- 30 days [...] the Encounter. The data comes from all DC treatment facilities. Date/Time Radiology Report Provider Source Sep 17, 2023 02:56 PM SPINE CERVICAL, 4 OR 5 VIEWS: EMA ESTRADA [id number] -[id number] M Exm Date: SEP 17, 2023@14:56 Req Phys: JOSE,LAZARO Pat Loc: CWM/SO/PACT 9 (Req'g Loc) Img Loc: [facility] 1 Service: Unknown [facility] , (Case [id number] COMPLETE) SPINE CERVICAL, 4 OR 5 VIEWS (RAD Detailed) CPT:32219 Reason for Study: neck pain Clinical History: Report Status: Verified Date Reported: SEP 17, 2023 Date Verified: SEP 17, 2023 Guard Rail Installer E-Sig:/ES/MAVERICK SANCHEZ JR Report: Study: AP, lateral [...] Primary Interpreting Staff: MAVERICK SANCHEZ JR, Radiologist (Guard Rail Installer) /MAVERICK DU JR [facility] Encounter Notes: All associated encounter notes This section contains the clinical notes associated to the Encounter. Date/Time Encounter Note(s) Provider Source Sep 14, 2023 09:55 AM PREVENTIVE MEDICIN E NURSING NOTE: LOCAL TITLE: CLINICAL REMINDERS/NURSING STANDARD TITLE: PREVENTIVE MEDICINE NURSING NOTE DATE OF NOTE: SEP 14, 2023@09:55 ENTRY DATE: SEP 14, 2023@09:55:40 AUTHOR: EMMA MARIN COSIGNER: URGENCY: STATUS: COMPLETED Advance Directive Screen MH AD: Patient has an Advance Directive on file at this [facility]. No updates are needed at this time. The patient received education about Advance Directives and written notification of his/her rights. Hepatitis C Testing: Patient declines HCV lab test. Influenza Immunization: No influenza vaccination was received during the recent influenza season. Pneumococcal Conjugate Vaccine (PCV15/PCV20): Refuses PCV vaccine Immunization: PNEUMOCOCCAL CONJUGATE, UNSPECIFIED FORMULATION Refusal Reason: PATIENT DECISION Patient refuses all immunization(s) in the PneumoPCV group Date Documented: 09/14/23 09:56 COVID-19 Immunization: Refused Moderna Monovalent COVID-19 vaccine Immunization: COVID-19 (MODERNA), MRNA, LNP-S, PF, 50 MCG/0.5 ML (AGES 12+ YEARS) Refusal Reason: PATIENT DECISION Patient refuses all immunization(s) in the COVID-19 group Date Documented: 09/14/23 09:56 Sexual Orientation: The patient thinks of their sexual orientation as: Straight or Heterosexual Hepatitis A Vaccine for High Risk: Patient declines/refuses Hepatitis A immunization Immunization: HEP A, UNSPECIFIED FORMULATION Refusal Reason: PATIENT DECISION Patient refuses all immunization(s) in the HepA group Date Documented: 09/14/23 09:56 MED REC COMPLETED BY PROVIDER DURING VISIT. 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 Discussed ongoing neck issues (nonradiating moderate pain to the back especially worse during the workweek). Patient has been under the care of a chiropractor with only minimal improvement. He was suggested to have screen use bifocals but this did not seem to improve the problem. Discussed ergonomic principles with workstation. Otherwise the patient can get an x-ray as well as start physical therapy. Patient wirh new onset (since beginning of year) of neck stiff ness and pain, nonradiating. 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 reminded that reinitiating a stimulant is possible but that there are significant concerns about doing so. Agrees to wait until Consult with physician office specialist. Declined increasing bupropion to address daytime lethargy. Also agreed to try taking acamprosate 333 MG TID versus 666 MG once per day in order to attempt to strike a better balance between benefit and reported side effects. {Follow-up 09/17/23] Problem list and medications reviewed. 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 PHYSICAL EXAMINATION/DIRECTED EXAM: BP:119/72 (09/14/2023 09:54) Resp:20 (09/14/2023 09:54) Temp:96.3 F [35.7 C] (09/14/2023 09:54) Pulse:57 (09/14/2023 09:54) WEIGHT 09/14/2023 09:54 217(98.43)[28*] 06/21/2023 15:12 225.8(102.42)[29*] 03/26/2023 13:12 229(103.87)[29*] Slightly stiff neck. Limited range of motion secondary to stiffness. 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 Patient with ongoing cervicalgia for approximately 6 to 7 months. Discussed other modalities including diagnostic films and physical therapy. Patient declines use of antispasm medications. Currently on DOAC. History of atrial flutter -recommend sleep study. Plan of care discussed with patient who articulates understanding. Chronic issues reviewed briefly; no changes to management unless specified above. RTC 6 months and as needed TIME ATTESTATION: Time spent directly with the patient was ( x ) 30 minutes More than 50% of the time spent with the patient included counselling regarding the admission Medical Review, History and Physical Examination, discussion of the findings, both remote and local data in the medical record, management, and patient education for the annotated medical conditions above. Discussed with patient and agrees to plan. VA and Non VA meds were reconciled. Today's documentation was made using voice recognition software. This note may contain spelling/grammatical errors secondary to this software. Patient provided copies of labs/studies and medication list. Upcoming Appointments: 09/17/2023 15:30 CWM/NO/MHC/[facility] 10/05/2023 13:00 CWM/SO/PACT 9 08/28/2024 11:30 NHM/OPTOMETRY/[place] Med Reconciliation: Active Outpatient Medications (including Supplies): Active Outpatient [...] BY MOUTH ACTIVE DAILY 16 Total Medications Medication (Local) Status FOLIC ACID 1MG TAB Directions: TAKE ONE TABLET BY MOUTH ONCE DAILY VITAMIN/NUTRITION SUPPLEMENT Quantity: 30 for 30 days Provider: REAGAN MÁRQUEZ Expires: 07/26/23 Status: MED ORGANIZER 7DAY/4 SLOT APEX#[id number] Directions: USE 1 ORGANIZER DIRECTED NEEDED Quantity: 1 for 30 days Provider: REAGAN MÁRQUEZ Expires: 07/26/23 Status: MULTIVITAMIN/MINERALS CAP/TAB Directions: TAKE ONE CAP/TAB BY MOUTH ONCE DAILY Quantity: 30 for 30 days Provider: REAGAN MÁRQUEZ Expires: 07/26/23 Status: NALOXONE HCL 4MG/SPRAY SOLN NASAL SPRAY Directions: INSTILL 1 SPRAY ONE NOSTRIL ONE TIME NEEDED CALL 911 WITH ADMINISTRATION. REPEAT WITH SECOND DEVICE IF SYMPTOMS RETURN Quantity: 2 for 30 days Provider: REAGAN MÁRQUEZ Expires: 07/26/23 Status: THIAMINE 100MG TAB Directions: TAKE TWO TABLETS BY MOUTH ONCE DAILY Quantity: 60 for 30 days Provider: REAGAN MÁRQUEZ Expires: 07/26/23 Status: APIXABAN 5MG TAB Directions: TAKE ONE TABLET BY MOUTH EVERY 12 HOURS Quantity: 60 for 30 days Provider: REAGAN MÁRQUEZ Expires: 07/26/23 Status: FLUOCINONIDE 0.05% CREAM Directions: APPLY A SMALL AMOUNT TOPICALLY ONCE DAILY FOR PALMAR PSORIATIC LESIONS Quantity: 60 for 90 days Provider: LAZARO GARCIA Expires: 06/24/23 Status: AMPHETAMINE/DEXTROAMPHET 20MG SA CAP Directions: TAKE ONE CAPSULE BY MOUTH ONCE DAILY FOR ADHD WITH HYPERACTIVITY NEXT FILL 06/21/23 Quantity: 30 for 30 days Provider: PRETTY MORRIS Expires: 06/20/23 Status: Medication (Remote) Status No remote medications found. /brenda/ LAZARO GARCIA MD PHYSICIAN Signed: 09/14/2023 10:31 LAZARO GARCIA [facility]
--- OUTSIDE RECORDS SUMMARY | 2024-06-06 17:58 | XMS_ITS ---
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 articulates understanding and agreement with terms of CV. Initial Treatment Plan: 1. HOSPITALIZATION: Required: alternative level of care unsafe or inappropriate due to: Pt is VOLUNTARY and meets CV requirements 2. INITIAL TREATMENT GOALS: DETOX: Current status: is drinking 1 pt of 100 proof vodka and upwards of 6 pack of beer a day. Treatment Goal: Admit to detox. Alcohol: serax/CIWA protocol Dependence Other: Cannabis daily to help with sleep. SAFETY RISK: Current status: has had SI (last yesterday) with plan (hanging) and intent (wanted to ). Treatment Goal: Admit to acute; monitor for safety. Contract for safety on the unit. Pt to be monitored q15 min on locked irwin MENTAL HEALTH NEEDS: Describe: endorses down depressed mood; negative thinking that spirals mood down; Sleep disturbance, hopelessness at times, isolating behaviors, feeling tired/low energy and little interest in things he used to enjoy. Treatment Goal: Medication stabilization; coping skill development Medication: Defer to MD Psychotherapy: Engage with MH care [facility] SOCIAL NEEDS: Describe: [place] identifies family and friends a support. Treatment Goal: Assist to increase sober support. Interventions: SW MEDICAL CONCERNS/HEALTH RISKS: Current Status: cleared medically prior to admission. Separate note Assessment of Risk if [place] , required at time of admission /brenda/ JUAN MIGUEL ELLIOTT LCSW CLINICAL SLOT MACHINE FLOOR PERSON Signed: 06/21/2023 22:46 Receipt Acknowledged By: 06/22/2023 12:45 /es/ REAGAN MÁRQUEZ MD PSYCHIATRIST 06/22/2023 09:49 /es/ SOL UPTON MD PHYSICIAN 06/24/2023 13:36 /es/ Lashonda Acosta APRN, STAFF CLINICAL NURSE SPECIALIST 06/24/2023 12:57 /es/ LAZARO GARCIA MD PHYSICIAN JUAN MIGUEL ELLIOTT MA CNTL [facility]
--- OUTSIDE RECORDS SUMMARY | 2024-06-06 17:58 | XMS_ITS ---
Author Name [facility] [place] [facility] [facility] [place] Address [address] [place] [id number] Care Team Providers Care Seam Stay Stitcher Name Role Phone ARIANNE CHERY Primary Care [...] Rizvi's Name Patient's Relationship to Policy Rizvi [facility] [employer] [employer] Aug 29, 2017 [id number] Kathy ESTRADA [facility] ORGANIZ COMMO [facility] Mar 01, 2014 [id number] [phone] Kathy ESTRADA SPOUSE MEDICARE (WNR) MEDICARE (M) PART A Sep 29, 2020 PART A [id number] [facility] [place] ESTRADA PATIENT MEDICARE (WNR) MEDICARE (M) PART A Sep 29, 2020 PART A [id number] [place] ESTRADA PATIENT Selected Encounter This section includes the information on record at [place] for the Encounter. Date/Time Encounter Type Encounter Description Reason Provider Source Dec 24, 2023 03:00 PM OFFICE O/P EST MOD 30 MIN MENTAL HEALTH CLINIC - IND ICD-10-CM F32.9 Major depressive disorder, single episode, unspecified ROSALINE BROOKE E Encounter Template Text not used by [place] Assessments - Encounter Diagnoses This section includes the primary and secondary diagnoses documented for the Encounter. Date/Time Primary/Secondary Diagnosis Diagnosis Name Provider Source Dec 24, 2023 04:01 PM PRIMARY Major depressive disorder, single episode, unspecified [facility] Dec 24, 2023 04:01 PM SECONDARY Alcohol dependence with withdrawal, uncomplicated [facility] Dec 24, 2023 04:01 PM SECONDARY Attn-defct hyperactivity disorder, predom inattentive type GERMAIN BROOKE IN [facility] Plan of Treatment: Future Appointments (+ 6 months) and Future Tests (+/- 45 days) The Plan of Treatment section includes future care activities for the patient [facility] This section includes future appointments and future orders which are active, pending or scheduled. Future Appointments This section includes appointments that were scheduled to occur 6 months from the date of the Encounter, up to a maximum of 20 appointments. The data comes from all [place] treatment facilities. Appointment Date/Time Appointment Type Appointme nt Facility Name Dec 31, 2023 02:30 PM AMBULATORY - REHAB MEDICIN E [facility] [place] [facility] Jan 17, 2024 08:30 AM AMBULATORY - MEDICINE [facility] [place] [facility] Jan 17, 2024 09:45 AM AMBULATORY - MEDICINE [facility] [place] [facility] Feb 17, 2024 03:30 PM AMBULATORY - [facility] [place] [facility] Mar 23, 2024 08:00 AM AMBULATORY - MEDICINE [facility] [place] [facility] Apr 04, 2024 09:30 AM AMBULATORY - REHAB MEDICIN E [facility] [place] [facility] Apr 05, 2024 03:30 PM AMBULATORY - PSYCHIATRY [facility] [place] [facility] May 03, 2024 10:00 AM AMBULATORY - MEDICINE [facility] [place] May 18, 2024 08:30 AM [facility] - NONE [facility] Jun 01, 2024 01:00 PM AMBULATORY - MEDICINE [facility] Jun 08, 2024 03:30 PM AMBULATORY - [facility] Jun 20, 2024 02:00 PM AMBULATORY - [facility] Active, Pending, and Scheduled Orders This section includes a listing of several types of active, pending, and scheduled orders, including clinic medications orders, diagnostic test orders, procedure orders and consult orders; where the start date of the order is 45 days before the date of the Encounter or 45 days after the date of theEncounter. The data comes from all [place] treatment facilities. Test Date/Time Test Type Test Details Facility Name Jan 13, 2024 12:00 AM Laboratory - Chemi stry Order BASIC METABOLIC PANEL (non-fasting) BLOOD (SST-SERUM) [facility] Lab Results: +/- 30 days of the encounter This section includes the Chemistry and Hematology Lab Results on record with [place] for the patient. Radiology Reports and Pathology Reports are provided separately, in subsequent sections. Lab Results This section contains the Chemistry/Hematology Results that were resulted 30 days before or 30 daysafter the date of the Encounter. Date/Time Source Result Type Result - Unit Interpretation Reference Range Comment Jan 17, 2024 08:23 AM [facility] VITAMIN D 25-OH (Therapy monitor) Speci men Type: SERUM Comment: Vitamin D, 25-Hydroxy reports concentrations of two common forms, 25-OHD2 and 25-OHD3. 25-OHD3 indicates both endogenous production and supplementation. 25-OHD2 is an indicator of exogenous sources such as diet or supplementation. Therapy is based on measurement of Total 25-OHD, with levels <20 ng/mL indicative of Vitamin D deficiency, while levels between 20 ng/mL and 30 ng/mL suggest insufficiency. Optimal levels are > or = 30 ng/mL. For additional information, please refer to http://education .PriceShoppers.com/faq/AVL290 (This link is being provided for informational/ educational purposes only.) This test was developed and its analytical performance characteristics have been determined by [facility] [place] [place]. It has not been cleared or approved by the U.S. Food and Drug Administration. This assay has been validated pursuant to the CLIA regulations and is used for clinical purposes. This test was developed and its analytical performance characteristics have been determined by [facility] [place] [place]. It has not been cleared or approved by the U.S. Food and Drug Administration. This assay has been validated pursuant to the CLIA regulations and is used for clinical purposes. Test Performed by [facility], [facility], [address] [place] [address] Drake Mejia M.D., Ph.D., Director of Laboratories , CLIA [id number] TEST PERFORMED AT: , Ordering Provider: BOOGIE GARCIA STEW Report Released Date/Time: Oct 14, 2022 04:44 PM Reporting Lab: [facility] [address] [address] Performing Lab: [facility] [address] [address] VITAMIN D, 25-OH, TOTAL 26 ng/mL L 30-100 VITAMIN D, 25-OH, D3 26 ng/mL VITAMIN D, 25-OH, D2 <4 ng/mL Jan 17, 2024 08:23 AM [facility] TSH Specimen Type: SERUM No comment entered. Ordering Provider: BOOGIE GARCIA STEW Report Released Date/Time: Oct 14, 2022 04:44 PM Reporting Lab: [facility] [address] Performing Lab: [facility] [address] TSH 0.98 u[IU]/mL 0.35-5.00 Jan 17, 2024 08:23 AM [facility] PSA Specimen Type: SERUM No comment entered. Ordering Provider: BOOGIE GARCIA STEW Report Released Date/Time: Oct 14, 2022 04:44 PM Reporting Lab: [facility] [address] [address] Performing Lab: [place] [address] [address] PSA 1.07 ng/mL 0.00-4.00 Jan 17, 2024 08:23 AM [facility] MICROALBUMIN CREATININE RATIO PANEL Spe cimen Type: URINE No comment entered. Ordering Provider: BOOGIE GARCIA Report Released Date/Time: Oct 14, 2022 04:44 PM Reporting Lab: [address] [address] Performing Lab: [address] [address] MICROALBUMIN/ CREATININE RATIO 8.7 mg/g 0-29.9 MICROALBUMIN, QUANTITATIVE 0.9 mg/dL RR UNAVAIL CREATININE URINE 103.05 mg/dL Jan 17, 2024 08:23 AM [facility] LIPID PANEL FASTING Specimen Type: SERUM No comment entered. Ordering Provider: BOOGIE GARCIA Report Released Date/Time: Oct 14, 2022 04:44 PM Reporting Lab: [address] [address] Performing Lab: [address] [address] CHOLESTEROL 235 mg/dL H TRIGLYCERIDE 121 mg/dL 0-150 LDL calculated 160 mg/dL H 0-129 CHOL/HDL 4.6 HDL CHOLESTEROL 51 mg/dL 40-60 Jan 17, 2024 08:23 AM [facility] HEMOGLOBIN A1C PANEL Specimen Type: BLOOD Comment: Values obtained from A1C measurements can vary. For atypical A1C assays, a reported value of 7.0 could actually be between 6.72 and 7.28 if measured by a reference method. A reported value of 9.0 could actually be between 8.73 and 9.27. Ref: http://www.ngsp. org/CAPdata.asp Ordering Provider: BOOGIE GARCIA Report Released Date/Time: Oct 14, 2022 04:44 PM Reporting Lab: [address] [address] Performing Lab: [address] [address] HEMOGLOBIN A1C 5.4 4.0-5.6 Jan 17, 2024 08:23 AM [facility] BASIC METABOLIC PANEL (fasting) Specime n Type: SERUM No comment entered. Ordering Provider: BOOGIE GARCIA Report Released Date/Time: Oct 14, 2022 04:44 PM Reporting Lab: [facility] [address] [facility] [address] Performing Lab: [address] [address] UREA NITROGEN 16 mg/dL 7-25 GLUCOSE 104 mg/dL H 65-100 SODIUM 137 mmol/L 135-145 POTASSIUM 4.5 mmol/L 3.5-5.0 CHLORIDE 104 mmol/L 100-110 CO2 24 meq/L 20-30 CREATININE, Serum 0.85 mg/dL 0.50-1.40 eGFR(CKD-EPI 2020) >90 mL/min >60 Jan 17, 2024 08:23 AM [facility] LIVER FUNCTION Specimen Type: SERUM No comment entered. Ordering Provider: BOOGIE GARCIA Report Released Date/Time: Oct 14, 2022 04:44 PM Reporting Lab: [address] [address] Performing Lab: [address] [address] PROTEIN,TOTAL 7.1 g/dL 6.0-8.3 ALBUMIN 4.0 g/dL 3.5-5.0 ALKALINE PHOSPHATASE 73 U/L 40-150 AST 21 U/L 5-34 ALT 21 U/L BILIRUBIN, TOTAL 1.0 mg/dL 0.2-1.2 Jan 17, 2024 08:23 AM [facility] CBC AND DIFF (AUTO) Specimen Type: BLOOD No comment entered. Ordering Provider: BOOGIE GARCIA Report Released Date/Time: Oct 14, 2022 04:44 PM Reporting Lab: [address] [address] Performing Lab: [address] [address] WBC 5.56 10*3/uL 4.50-11.00 RBC 5.25 10*6/uL 4.23-5.66 HGB 15.2 g/dL 12.8-17 HCT 45.1 39.2-50.4 MCV 85.9 fL 82-99 MCHC 33.7 g/dL 30.8-35.1 PLT 287 10*3/uL 140-360 RDW-CV 13.1 12.0-16.0 MONO, ABS 0.60 10*3/uL 0.30-1.10 MCH 29.0 pg 26.2-32.6 NEUT % 61.3 43.7-75.8 LYMPH % 24.8 14.0-42.3 MONO % 10.8 5.1-13.7 EOS % 1.4 0.4-6.8 BASO % 1.3 0.1-2.0 NEUT, ABS 3.41 10*3/uL 2.20-7.60 LYMPH, ABS 1.38 10*3/uL 1.00-3.20 EOS, ABS 0.08 10*3/uL 0.03-0.44 BASO, ABS 0.07 10*3/uL 0.01-0.13 IMMATURE GRAN % 0.4 0.0-0.7 IMMATURE GRAN, ABS 0.02 10*3/uL 0.00-0.06 NRBC % 0.0 0.0-0.0 NRBC, ABS 0.00 10*3/uL 0.00-0.00 Advance Directives: All historical and current Section Date Range: From patient's date of to the date document was created. This section includes ALL of a patient's completed or amended [place] Advance and Rescinded Directives. The entries below indicate that a directive exists for the patient, but an actual copy is not included with this document. The data comes from all [place] facilities. Date Advance Directives Provider Source Jun 25, 2023 ADVANCE DIRECTIVE DISCUSSION AMAYA FRANZ [facility] [place] [facility] Aug 06, 2017 ADVANCE DIRECTIVE ABDIRASHID [facility] Encounter Notes: All associated encounter notes This section contains the clinical notes associated to the Encounter. Date/Time Encounter Note(s) Provider Source Dec 24, 2023 03:40 PM PRIMARY CARE NURSE PRACTITIONER OUTPATIENT NOTE: LOCAL TITLE: NURSE PRACTITIONER OUTPATIENT NOTE STANDARD TITLE: PRIMARY CARE NURSE PRACTITIONER OUTPATIENT NOTE DATE OF NOTE: DEC 24, 2023@15:40 ENTRY DATE: DEC 24, 2023@15:41:13 AUTHOR: LEXI BROOKE EXP COSIGNER: URGENCY: STATUS: COMPLETED OUTPATIENT MENTAL HEALTH CLINIC: FOLLOW-UP HPI: AFIALETICIAEMA Mahmood, a 68 y/o male [place] previously diagnosed with Major depressive disorder, Attention deficit hyperactivity disorder and Alcohol Use Disorder presents for [facility] Follow-Up appointment. Last seen by This Provider on 11/25/23 Ran out of acamprosate approximately one week ago. Hasn't noticed any change. No cravings. NO alcohol use Denies depression but does endorse recent stressors involving his and daughter. Daughter angry about childhood experiences and involved in protracted conflict with [place] but nobody's bending. Feels jittery first thing in the morning, by which he means mild hand tremors that last for several hours in the mid to late morning Does agree that he's been a little bit more irritable recently. Hasn't started the gabapentin yet. Has had two falls in the past week. One because of poor lighting and the other because he slipped on antifreeze I sleep okay. 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 MENTAL STATUS [...] memory grossly intact to conversational testing Mood: fine agrees that he is more irritable Affect: mood congruent MEDICAL HISTORY: Active Problem [...] Remote Allergy/ADR Data available for this patient [facility] [place] [facility] No Known Allergies MEDICATIONS: reviewed and updated in CPRS Active Outpatient Medications (including Supplies): Active Outpatient Medications Status 1) ACAMPROSATE CA 333MG EC TAB TAKE TWO TABLETS BY MOUTH HOLD THREE TIMES DAILY WITH MEALS TO BE USED UNTIL REMAINDER OF REGULAR PRESCRIPTION ARRIVES IN THE MAIL 2) APIXABAN 5MG TAB TAKE ONE TABLET BY MOUTH EVERY 12 ACTIVE (S) HOURS 3) FOLIC ACID 1MG TAB TAKE ONE TABLET BY MOUTH ONCE ACTIVE DAILY FOR ANEMIA FROM INADEQUATE FOLIC ACID VITAMIN/NUTRITION SUPPLEMENT 4) GABAPENTIN 100MG CAP TAKE TWO CAPSULES BY MOUTH AT ACTIVE BEDTIME FOR 7 DAYS, THEN TAKE TWO CAPSULES TWICE DAILY FOR 7 DAYS, THEN TAKE TWO CAPSULES THREE TIMES A DAY ALCOHOL USE DISORDER (OFF LABEL) 5) LISINOPRIL 10MG TAB TAKE ONE TABLET BY MOUTH ONCE ACTIVE DAILY TO CONTROL BLOOD PRESSURE 6) MULTIVITAMIN/MINERALS CAP/TAB TAKE ONE CAP/TAB BY ACTIVE MOUTH ONCE DAILY 7) POTASSIUM CHLORIDE 10MEQ SA TAB TAKE ONE TABLET BY ACTIVE MOUTH ONCE DAILY WHILE ON FUROSEMIDE 8) THIAMINE 100MG TAB TAKE TWO TABLETS BY MOUTH ONCE ACTIVE DAILY Pending Outpatient Medications Status 1) BUPROPION HCL 300MG 24HR SA TAB TAKE ONE TABLET BY PENDING MOUTH EVERY MORNING Active Non-VA Medications Status 1) Non-VA ASCORBIC [...] BY MOUTH ACTIVE DAILY 16 Total Medications LABS AND STUDIES: REVIEWED IN CPRS SAFETY ASSESSMENT: No acute safety concerns. Convincingly [...] desire to continue with current pharmacotherapy regimen. No rebound cravings with discontinuation of acamprosate (still on back order). Hasn't started gabapentin yet. Reminded of fall risk Recent falls and tremor worthy of additional assessment; encouraged to follow up with PCP. No acute safety concerns Diagnosis: Attention deficit hyperactivity disorder, predominantly inattentive type Major depressive disorder, recurrent, in partial remission Alcohol Use Disorder, severe, in early remission PLAN: 1) CONTINUE ACAMPROSATE 666 MG PO TID 9CURRENTLY ON BACK ORDER) 2) CONTINUE BUPROPION SR, 200 MG PO DAILY 3) INITIATE GABAPENTIN 200 MG TITRATE UP TO 200 MG TID (UNTIL ACAMPROSATE IS BACK IN STOCK) Labs: none today Follow-Up: 02/17/24 Discussed risks and benefits of proposed medication treatments including FDA approved indications and off-label uses, as well as common and severe side effects. comprehended all information discussed, had opportunity to ask questions which were answered to their satisfaction, and voluntarily and without duress agreed to trial as documented. CONTACT AND CRISIS INFO: informed that This Provider can be contacted at , [phone] or via Secure Messaging. 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 [...] BROOKE Psychiatric Mental Health Nurse Practitioner Signed: 12/24/2023 16:00 LEXI BROOKE [facility]
--- OUTSIDE RECORDS SUMMARY | 2024-06-06 17:58 | XMS_ITS | Encounter Summary ---
Author Name [facility] [facility] [place] Address [address] [place] [address] Care Team Providers Care Tobacco Scrap Sifter Name Role Phone ARIANNE CHERY Primary Care [...] Name Patient's Relationship to Policy [facility] [employer] Aug 29, 2017 [id number] Kathy MURPHY [facility]GANIZ COM[facility] Mar 01, 2014 [id number] Kathy MURPHY SPOUSE MEDICARE (WNR) MEDICARE (M) PART A Sep 29, 2020 PART A [id number] [facility] Guanakito MURPHY PATIENT MEDICARE (WNR) MEDICARE (M) PART A Sep 29, 2020 PART A [id number] Guanakito MURPHY PATIENT Selected Encounter This section includes the information on record at [place] for the Encounter. Date/Time Encounter Type Encounter Description Reason Provider Source Jun 23, 2023 11:00 AM GROUP PS[facility]CHOTHERAPY [facility] ICD-10-CM Z72.89 Other problems related to lifestyle KALIE AGOSTO Kathy Encounter Template Text not used by [place] Assessments - Encounter Diagnoses This section includes the primary and secondary diagnoses documented for the Encounter. Date/Time Primary/Secondary Diagnosis Diagnosis Name Provider Source Jun 23, 2023 12:24 PM PRIMARY Other problems related to lifestyle KALIE AGOSTO [place] [facility] [facility] Jun 23, 2023 12:24 PM SECONDARY Major depressive disorder, single episode, unspecified KALIE AGOSTO [place] [facility] [facility] Plan of Treatment: Future Appointments (+ 6 months) and Future Tests (+/- 45 days) The Plan of Treatment section includes future care activities for the patient [facility] [place] [facility] This section includes future appointments and future orders which are active, pending or scheduled. Future Appointments This section includes appointments that were scheduled to occur 6 months from the date of the Encounter, up to a maximum of 20 appointments. The data comes from all [place] treatment facilities. Appointment Date/Time Appointment Type Appointme nt Facility Name July 05, 2023 02:30 PM AMBULATORY - PSYCHIATRY [facility] [facility] July 07, 2023 09:15 AM AMBULATORY - MEDICINE [place] [place] [facility] July 12, 2023 01:00 PM AMBULATORY - PSYCHIATRY [facility] [facility] July 16, 2023 03:00 PM AMBULATORY - PSYCHIATRY [facility] [facility] July 23, 2023 03:30 PM AMBULATORY - PSYCHIATRY [facility] [facility] Aug 13, 2023 03:30 PM AMBULATORY - PSYCHIATRY [facility] [facility] Aug 16, 2023 11:00 AM AMBULATORY - MEDICINE [facility] [place] [facility] Aug 27, 2023 11:30 AM AMBULATORY - MEDICINE [facility] [place] [facility] Sep 14, 2023 09:30 AM AMBULATORY - MEDICINE [facility] [place] [facility] Sep 17, 2023 03:30 PM AMBULATORY - PSYCHIATRY [facility] [facility] Oct 05, 2023 01:00 PM AMBULATORY - MEDICINE [facility] [place] [facility] Oct 14, 2023 02:00 PM AMBULATORY - NONE [facility] [facility] Nov 12, 2023 03:30 PM AMBULATORY - PSYCHIATRY [facility] [facility] Nov 25, 2023 07:30 AM AMBULATORY - REHAB MEDICIN E [facility] [facility] Nov 25, 2023 08:30 AM AMBULATORY - PSYCHIATRY [facility] [facility] Nov 25, 2023 11:00 AM [facility] Dec 03, 2023 07:30 AM AMBULATORY - REHAB MEDICIN E [facility] [facility] Dec 09, 2023 08:15 AM AMBULATORY - REHAB MEDICIN E [facility] [facility] Dec 15, 2023 01:00 PM AMBULATORY - REHAB MEDICIN E [facility] [facility] Active, Pending, and Scheduled Orders This section includes a listing of several types of active, pending, and scheduled orders, including clinic medications orders, diagnostic test orders, procedure orders and consult orders; where the start date of the order is 45 days before the date of the Encounter or 45 days after the date of theEncounter. The data comes from all [place] treatment facilities. Test Date/Time Test Type Test Details Facility Name May 14, 2023 12:00 AM Laboratory - Chemi stry Order BASIC METABOLIC PANEL (fasting) BLOOD (SST-SERUM) [facility] May 14, 2023 12:00 AM Laboratory - Chemi stry Order LIVER FUNCTION BLOOD (SST-SERUM) [facility] May 14, 2023 12:00 AM Laboratory - Chemi stry Order LIPID PANEL FASTING BLOOD (SST-SERUM) [facility] May 14, 2023 12:00 AM Laboratory - Chemi stry Order HEMOGLOBIN A1C PANEL BLOOD (LAV-BLOOD) [facility] May 14, 2023 12:00 AM Laboratory - Chemi stry Order TSH BLOOD (SST-SERUM) [facility] May 14, 2023 12:00 AM Laboratory - Chemi stry Order CBC AND DIFF (AUTO) BLOOD (LAV-BLOOD) [facility] Lab Results: +/- 30 days of the encounter This section includes the Chemistry and Hematology Lab Results on record with [place] for the patient. Radiology Reports and Pathology Reports are provided separately, in subsequent sections. Lab Results This section contains the Chemistry/Hematology Results that were resulted 30 days before or 30 daysafter the date of the Encounter. Date/Time Source Result Type Result - Unit Interpretation Reference Range Comment Jun 24, 2023 06:38 AM [facility] FOLATE (WROX) Specimen Type: SERUM No comment entered. Ordering Provider: REAGAN MÁRQUEZ Report Released Date/Time: Jun 23, 2023 11:15 AM Reporting Lab[facility] [place] [facility] [address] [facility] [address] Performing Lab: [facility] [address] [facility] [address] FOLATE (WROX) 17.13 ng/mL >5.2 Jun 24, 2023 06:38 AM [facility] HEMOGLOBIN A1C PANEL Specimen Type: BLOOD Comment: [...] Jun 23, 2023 11:15 AM Reporting Lab: [facility] [address] [address] Performing Lab: [facility] [address] HEMOGLOBIN A1C 5.3 4.0-5.6 Jun 24, 2023 06:38 AM [facility] VITAMIN B12 Specimen Type: SERUM No comment entered. Ordering Provider: REAGAN MÁRQUEZ Report Released Date/Time: Jun 23, 2023 11:15 AM Reporting Lab: [facility] [address] [facility] [address] Performing Lab: [facility] [address] VITAMIN B12 647 pg/mL 200-900 Jun 24, 2023 06:38 AM [facility] TSH Specimen Type: SERUM No comment entered. Ordering Provider: REAGAN MÁRQUEZ Report Released Date/Time: Jun 23, 2023 11:15 AM Reporting Lab: [facility] [address] [address] Performing Lab: [address] [address] TSH 2.11 u[IU]/mL 0.35-5.00 Jun 24, 2023 06:38 AM [facility] LIPID PANEL FASTING Specimen Type: SERUM No comment entered. Ordering Provider: REAGAN MÁRQUEZ Report Released Date/Time: Jun 23, 2023 11:15 AM Reporting Lab: [address] [address] Performing Lab: [address] [address] CHOLESTEROL 181 mg/dL TRIGLYCERIDE 180 mg/dL H 0-150 LDL calculated 106 mg/dL 0-129 CHOL/HDL 4.6 HDL CHOLESTEROL 39 mg/dL L 40-60 Jun 22, 2023 06:30 AM [facility] LIVER FUNCTION Specimen Type: SERUM No comment entered. Ordering Provider: DONA KIM Report Released Date/Time: Jun 21, 2023 06:07 PM Reporting Lab: [address] [address] Performing Lab: [address] [address] PROTEIN,TOTAL 7.3 g/dL 6.0-8.3 ALBUMIN 4.1 g/dL 3.5-5.0 ALKALINE PHOSPHATASE 80 U/L 40-150 AST 23 U/L 5-34 ALT 39 U/L BILIRUBIN, TOTAL 0.9 mg/dL 0.2-1.2 Jun 21, 2023 03:49 PM [facility] COVID-19 MONITOR PANEL (CEPHEID) Specimen Type: NASOPHARYNX Comment: This test is authorized for emergency use only. False negative results may occur if virus is present at levels below the analytical limit of detection.Neg ative results do not preclude SARS-CoV-2 infection and should not be used as the sole basis for treatment or other patient management decisions.Cep heid FLUVID: HCPs: https://www.[facility].gov/media/ 970838/downlo ad. Patients: https://www. [place].gov/media/ 505934/downlo ad Ordering Provider: DIEGO MEJIAS Report Released Date/Time: Jun 21, 2023 03:18 PM Reporting Lab: [facility] [address] [address] Performing Lab: [address] [address] COVID-19 JARED (CEPHEID) NEGATIVE Negative Jun 21, 2023 03:29 PM [facility] ETHANOL Specimen Type: PLASMA No comment entered. Ordering Provider: DIEGO MEJIAS Report Released Date/Time: Jun 21, 2023 03:18 PM Reporting Lab: [facility] [address] [address] Performing Lab: [facility] [address] ETHANOL <10 mg/dL Jun 21, 2023 03:29 PM [facility] LIVER FUNCTION Specimen Type: SERUM No comment entered. Ordering Provider: DIEGO MEIJAS Report Released Date/Time: Jun 21, 2023 03:18 PM Reporting Lab: [facility] [address] Performing Lab: [facility] [address] PROTEIN,TOTAL 8.1 g/dL 6.0-8.3 ALBUMIN 4.7 g/dL 3.5-5.0 ALKALINE PHOSPHATASE 83 U/L 40-150 AST 31 U/L 5-34 ALT 47 U/L BILIRUBIN, TOTAL 0.9 mg/dL 0.2-1.2 Jun 21, 2023 03:29 PM [facility] BASIC METABOLIC PANEL (non-fasting) Specimen Type: SERUM No comment entered. Ordering Provider: DIEGO MEJIAS Report Released Date/Time: Jun 21, 2023 03:18 PM Reporting Lab: [address] [address] Performing Lab: [address] [address] UREA NITROGEN 20 mg/dL 7-25 GLUCOSE 100 mg/dL 65-100 SODIUM 139 mmol/L 135-145 POTASSIUM 4.2 mmol/L 3.5-5.0 CHLORIDE 101 mmol/L 100-110 CO2 26 meq/L 20-30 CREATININE, Serum 0.85 mg/dL 0.50-1.40 eGFR(CKD-EPI 2020) >90 mL/min >60 Jun 21, 2023 03:29 PM [facility] DRUGS OF ABUSE Specimen Type: URINE Comment: [...] Jun 21, 2023 03:18 PM Reporting Lab: [address] [address] Performing Lab: [address] [address] AMPHETAMINES SCREEN NONE-DETECTED None-Detec josefina, Cutoff = [...] 3-1.02 0 Jun 21, 2023 03:29 PM [facility] CBC AND DIFF (AUTO) Specimen Type: BLOOD No comment entered. Ordering Provider: DIEGO MEJIAS Report Released Date/Time: Jun 21, 2023 03:18 PM Reporting Lab: [facility] [address] [address] Performing Lab: [address] [address] WBC 8.46 10*3/uL 4.50-11.00 RBC 5.43 10*6/uL 4.23-5.66 HGB 16.3 g/dL 12.8-17 HCT 47.5 39.2-50.4 MCV 87.5 fL 82-99 MCHC 34.3 g/dL 30.8-35.1 PLT 323 10*3/uL 140-360 RDW-CV 12.8 12.0-16.0 [place], Abs 0.80 10*3/uL 0.30-1.10 MCH 30.0 pg 26.2-32.6 Neut % 63.0 43.7-75.8 Lymph % 25.2 14.0-42.3 [place] % 9.5 5.1-13.7 Eos % 1.1 0.4-6.8 [...] Source Jun 23, 2023 09:07 PM 6 [place] [facility] Jun 23, 2023 04:00 PM 97.9 65 143/90 18 95 [place] [facility] Jun 23, 2023 08:55 AM 96.8 68 114/70 18 97 [place] [facility] Jun 23, 2023 06:15 AM 98.1 65 129/81 16 97 [place] [facility] Jun 23, 2023 12:23 AM 97.9 64 138/93 16 97 [facility] Advance Directives: All historical and current Section Date Range: From patient's date of to the date document was created. This section includes ALL of a patient's completed or amended [place] Advance and Rescinded Directives. The entries below indicate that a directive exists for the patient, but an actual copy is not included with this document. The data comes from all [place] facilities. Date Advance Directives Provider Source Jun 25, 2023 ADVANCE DIRECTIVE DISCUSSION AMAYA FRANZ [place] [facility] [place] [facility] Aug 06, 2017 ADVANCE DIRECTIVE ABDIRASHID [facility] Encounter Notes: All associated encounter notes This section contains the clinical notes associated to the Encounter. Date/Time Encounter Note(s) Provider Source Jun 23, 2023 12:03 PM PSYCHIATRY GROUP [place]ona CARL NOTE: LOCAL TITLE: PSYCHOLOGY GROUP NOTE STANDARD TITLE: PSYCHIATRY GROUP COUNSELING NOTE DATE OF NOTE: JUN 23, 2023@12:03 ENTRY DATE: JUN 23, 2023@12:03:51 AUTHOR: KALEI AGOSTO EXP COSIGNER: URGENCY: STATUS: COMPLETED Group Psychotherapy TITLE: Motivational Interviewing GROUP RESAWYER: Kalie Agosto PsyD GROUP MEMBERS: 7 Veterans TIME: 50 minutes LEARNING FORMAT: Group Psychotherapy Content: Today's session was an instruction in and practice of Motivational Interviewing. Ambivalence toward change was briefly discussed and the Self-Perception theory was described, explaining the purpose of speaking aloud one's statements (and why AA shows success). The need for autonomy in making decisions was also discussed. Group members chose cards from a deck each containing two questions according to the style of Motivational Interviewing. They then asked the questions of their peers to their right and left. The questions were focused on importance levels and confidence levels of maintaining recovery, and the benefits that they may see with sobriety. There was general full engagement in the group. A quotation about change was shared at the close of the session. Risk/safety: Based on the current session there is no evidence of the [place] being in imminent danger to self or others. Group Goal: To help individuals resolve conflicting thoughts and desires about engaging in treatment and stopping their behavioral addiction, including alcohol or drug use. It aims to evoke internally motivated change. Procedure: Group Psychotherapy, including psychoeducation Plan: will continue to attend this group daily for the [place]'s duration on this unit. Participation: Mr. Murphy shared that he is confident at a 10 out of 10 that he will be able to stay sober when he leaves here. Attending AA would make him even more confident. He reported that he feels better in many ways when he is sober. He wasn't even wanting to eat breakfast when he was drinking. Diagnoses: Primary Admits alcohol use (SCT [id number]) - Other problems related to lifestyle (ICD-10-CM Z72.89) Secondary Major depressive disorder (SCT 073749940) - Major depressive disorder, single episode, unspecified (ICD-10-CM F32.9) Procedures: Group Psychotherapy Related to: Service Connected Condition /es/ KALIE AGOSTO PSY.D. STAFF PSYCHOLOGIST Signed: 06/23/2023 12:[address] [facility]
--- OUTSIDE RECORDS SUMMARY | 2024-06-06 17:58 | XMS_ITS | Encounter Summary ---
Author Name [facility] [place] [facility] [place] Address [address] [place] [address] Care Team Providers Care Management Department Chair Name Role Phone ARIANNE CHERY Primary Care [...] Rizvi's Name Patient's Relationship to Policy Rizvi [facility] CE [employer]GANES[facility]ZA [employer] Aug 29, 2017 [id number] Kathy ESTRADA [facility] CE ORGANIZ COMMO NWEAL TH [facility] Mar 01, 2014 [id number] [phone] Kathy ESTRADA SPOUSE MEDICARE (WNR) MEDICARE (M) PART A Sep 29, 2020 PART A [id number] [facility] [phone] [place] ESTRADA PATIENT MEDICARE (WNR) MEDICARE (M) PART A Sep 29, 2020 PART A [id number] [phone] [place] ESTRADA PATIENT Selected Encounter This section includes the information on record at [place] for the Encounter. Date/Time Encounter Type Encounter Description Reason Provider Source Jun 18, 2023 08:00 AM COMPRE OPH EXAM EST PT 1/> OPTOMETRY ICD-10-CM H35.712 Central serous chorioretinopa thy, left eye OSHICAMILLA MULLERD Uriah IHE Encounter Template Text not used by [place] Assessments - Encounter Diagnoses This section includes the primary and secondary diagnoses documented for the Encounter. Date/Time Primary/Secondary Diagnosis Diagnosis Name Provider Source Jun 19, 2023 11:51 AM PRIMARY Central serous chorioretinopat hy, left eye OSHIMAUROKIKathy,CAMILLA CAITIE Kruse [place] [facility] [place] [facility] Jun 19, 2023 11:51 AM SECONDARY Age-related nuclear cataract, bilateral OSJENNSCAMILLA BRADFORD [place] [facility] [place] [facility] Jun 19, 2023 11:51 AM SECONDARY Myopia, bilateral OSCAMILLA FELIPE [place] [facility] [place] [facility] Jun 19, 2023 11:51 AM SECONDARY Regular astigmatism, bilateral OSHIYOHANA,CAMILLA Kruse [place] [facility] [place] [facility] Plan of Treatment: Future Appointments (+ 6 months) and Future Tests (+/- 45 days) The Plan of Treatment section includes future care activities for the patient from all [place] treatmentfaunc health lenoirities. This section includes future appointments and future orders which are active, pending or scheduled. Future Appointments This section includes appointments that were scheduled to occur 6 months from the date of the Encounter, up to a maximum of 20 appointments. The data comes from all [place] treatment facilities. Appointment Date/Time Appointment Type Appointme nt Facility Name Jun 21, 2023 12:30 PM AMBULATORY - MEDICINE [place] [facility] [place] [facility] Jun 21, 2023 03:00 PM AMBULATORY [place] [facility] [place] [facility] Jun 21, 2023 03:01 PM AMBULATORY [place]AT[place] [facility] [place] [facility] Jun 21, 2023 03:02 PM AMBULATORY [place]AT[place] [facility] [place] [facility] July 05, 2023 02:30 PM AMBULATORY [place]ATRY [place] [facility] [place] [facility] July 07, 2023 09:15 AM AMBULATORY [place]ICINE [place] [facility] [place] [facility] July 12, 2023 01:00 PM AMBULATORY [place]ATRY [place] [facility] [place] [facility] July 16, 2023 03:00 PM AMBULATORY - PS[place]CHIATRY [place] [facility] [place] [facility] July 23, 2023 03:30 PM AMBULATORY - PSYCHIATRY [place] [facility] [place] [facility] Aug 13, 2023 03:30 PM AMBULATORY - PS[place]CHIATRY [place] [facility] [place] [facility] Aug 16, 2023 11:00 AM AMBULATORY - MEDICINE [place] [facility] [place] [facility] Aug 27, 2023 11:30 AM AMBULATORY - MEDICINE [place] [facility] [place] [facility] Sep 14, 2023 09:30 AM AMBULATORY - MEDICINE [place] [facility] [place] [facility] Sep 17, 2023 03:30 PM AMBULATORY - PSYCHIATRY [place] [facility] [place] [facility] Oct 05, 2023 01:00 PM AMBULATORY - MEDICINE [place] [facility] [place] [facility] Oct 14, 2023 02:00 PM AMBULATORY - NONE [place] [facility] [place] [facility] Nov 12, 2023 03:30 PM AMBULATORY - PSYCHIATRY [place] [facility] [place] [facility] Nov 25, 2023 07:30 AM AMBULATORY - REHAB MEDICIN E [place] [facility] [place] [facility] Nov 25, 2023 08:30 AM AMBULATORY - PSYCHIATRY [place] [facility] [place] [facility] Nov 25, 2023 11:00 AM AMBULATORY - MEDICINE [facility] Active, Pending, and Scheduled Orders This section includes a listing of several types of active, pending, and scheduled orders, including clinic medications orders, diagnostic test orders, procedure orders and consult orders; where the start date of the order is 45 days before the date of the Encounter or 45 days after the date of theEncounter. The data comes from all [place] treatment facilities. Test Date/Time Test Type Test Details Facility Name May 14, 2023 12:00 AM Laboratory - Chemi stry Order BASIC METABOLIC PANEL (fasting) BLOOD (SST-SERUM) [facility] May 14, 2023 12:00 AM Laboratory - Chemi stry Order LIVER FUNCTION BLOOD (SST-SERUM) [facility] May 14, 2023 12:00 AM Laboratory - Chemi stry Order LIPID PANEL FASTING BLOOD (SST-SERUM) [facility] May 14, 2023 12:00 AM Laboratory - Chemi stry Order HEMOGLOBIN A1C PANEL BLOOD (LAV-BLOOD) [facility] May 14, 2023 12:00 AM Laboratory - Chemi stry Order CBC AND DIFF (AUTO) BLOOD (LAV-BLOOD) [facility] May 14, 2023 12:00 AM Laboratory - Chemi stry Order TSH BLOOD (SST-SERUM) [facility] Lab Results: +/- 30 days of the encounter This section includes the Chemistry and Hematology Lab Results on record with [place] for the patient. Radiology Reports and Pathology Reports are provided separately, in subsequent sections. Lab Results This section contains the Chemistry/Hematology Results that were resulted 30 days before or 30 daysafter the date of the Encounter. Date/Time Source Result Type Result - Unit Interpretation Reference Range Comment Jun 24, 2023 06:38 AM [facility] FOLATE (WROX) Specimen Type: SERUM No comment entered. Ordering Provider: REAGAN MÁRQUEZ Report Released Date/Time: Jun 23, 2023 11:15 AM Reporting Lab: [facility] [address] [address] Performing Lab: [facility] [address] [facility] [address] FOLATE (WROX) 17.13 ng/mL >5.2 Jun 24, 2023 06:38 AM [facility] HEMOGLOBIN A1C PANEL Specimen Type: [...] Jun 23, 2023 11:15 AM Reporting Lab: [facility] [address] [address] Performing Lab: [address] [address] HEMOGLOBIN A1C 5.3 4.0-5.6 Jun 24, 2023 06:38 AM [facility] VITAMIN B12 Specimen Type: SERUM No comment entered. Ordering Provider: REAGAN MÁRQUEZ Report Released Date/Time: Jun 23, 2023 11:15 AM Reporting Lab: [facility] [address] [address] Performing Lab: [facility] [address] VITAMIN B12 647 pg/mL 200-900 Jun 24, 2023 06:38 AM [facility] LIPID PANEL FASTING Specimen Type: SERUM No comment entered. Ordering Provider: REAGAN MÁRQUEZ Report Released Date/Time: Jun 23, 2023 11:15 AM Reporting Lab: [facility] [address] [facility] [address] Performing Lab: [address] [address] CHOLESTEROL 181 mg/dL TRIGLYCERIDE 180 mg/dL H 0-150 LDL calculated 106 mg/dL 0-129 CHOL/HDL 4.6 HDL CHOLESTEROL 39 mg/dL L 40-60 Jun 24, 2023 06:38 AM [facility] TSH Specimen Type: SERUM No comment entered. Ordering Provider: REAGAN MÁRQUEZ Report Released Date/Time: Jun 23, 2023 11:15 AM Reporting Lab: [facility] [address] [facility] [address] Performing Lab: [facility]ITALUSETS [address] [address] TSH 2.11 u[IU]/mL 0.35-5.00 Jun 22, 2023 06:30 AM [facility] LIVER FUNCTION Specimen Type: SERUM No comment entered. Ordering Provider: DONA KIM Report Released Date/Time: Jun 21, 2023 06:07 PM Reporting Lab: [facility] [address] [address] Performing Lab: [facility] [address] [address] PROTEIN,TOTAL 7.3 g/dL 6.0-8.3 ALBUMIN 4.1 g/dL 3.5-5.0 ALKALINE PHOSPHATASE 80 U/L 40-150 AST 23 U/L 5-34 ALT 39 U/L BILIRUBIN, TOTAL 0.9 mg/dL 0.2-1.2 Jun 21, 2023 03:49 PM [facility] COVID-19 MONITOR PANEL (CEPHEID) Specimen Type: NASOPHARYNX Comment: This test is authorized for emergency use only. False negative results may occur if virus is present at levels below the analytical limit of detection.Neg ative results do not preclude SARS-CoV-2 infection and should not be used as the sole basis for treatment or other patient management decisions.Cep heid FLUVID: HCPs: https://www. [place].gov/media/ 610245/downlo ad. Patients: https://www. da.gov/media/ 402325/downlo ad Ordering Provider: DIEGO MEJIAS Report Released Date/Time: Jun 21, 2023 03:18 PM Reporting Lab: [address] [address] Performing Lab: [address] [address] COVID-19 JARED (CEPHEID) NEGATIVE Negative Jun 21, 2023 03:29 PM [facility] ETHANOL Specimen Type: PLASMA No comment entered. Ordering Provider: DIEGO MEJIAS Report Released Date/Time: Jun 21, 2023 03:18 PM Reporting Lab: [address] [address] Performing Lab: [address] [address] ETHANOL <10 mg/dL Jun 21, 2023 03:29 PM [facility] LIVER FUNCTION Specimen Type: SERUM No comment entered. Ordering Provider: DIEGO MEJIAS Report Released Date/Time: Jun 21, 2023 03:18 PM Reporting Lab: [address] [address] Performing Lab: [facility] [address] [address] [address] PROTEIN,TOTAL 8.1 g/dL 6.0-8.3 ALBUMIN 4.7 g/dL 3.5-5.0 ALKALINE PHOSPHATASE 83 U/L 40-150 AST 31 U/L 5-34 ALT 47 U/L BILIRUBIN, TOTAL 0.9 mg/dL 0.2-1.2 Jun 21, 2023 03:29 PM [facility] BASIC METABOLIC PANEL (non-fasting) Specimen Type: SERUM No comment entered. Ordering Provider: DIEGO MEJIAS Report Released Date/Time: Jun 21, 2023 03:18 PM Reporting Lab: [address] [address] Performing Lab: [address] [address] UREA NITROGEN 20 mg/dL 7-25 GLUCOSE 100 mg/dL 65-100 SODIUM 139 mmol/L 135-145 POTASSIUM 4.2 mmol/L 3.5-5.0 CHLORIDE 101 mmol/L 100-110 CO2 26 meq/L 20-30 CREATININE, Serum 0.85 mg/dL 0.50-1.40 eGFR(CKD-EPI 2020) >90 mL/min >60 Jun 21, 2023 03:29 PM [facility] DRUGS OF ABUSE Specimen Type: [...] Jun 21, 2023 03:18 PM Reporting Lab: [address] [address] Performing Lab: [address] [address] AMPHETAMINES SCREEN NONE-DETECTED None-Detec josefina, Cutoff = [...] 3-1.02 0 Jun 21, 2023 03:29 PM [facility] CBC AND DIFF (AUTO) Specimen Type: BLOOD No comment entered. Ordering Provider: DIEGO MEJIAS Report Released Date/Time: Jun 21, 2023 03:18 PM Reporting Lab: [address] [address] Performing Lab: [address] [address] WBC 8.46 10*3/uL 4.50-11.00 RBC 5.43 10*6/uL 4.23-5.66 HGB 16.3 g/dL 12.8-17 HCT 47.5 39.2-50.4 MCV 87.5 fL 82-99 MCHC 34.3 g/dL 30.8-35.1 PLT 323 10*3/uL 140-360 RDW-CV 12.8 12.0-16.0 [place], Abs 0.80 10*3/uL 0.30-1.10 MCH 30.0 pg 26.2-32.6 Neut % 63.0 43.7-75.8 Lymph % 25.2 14.0-42.3 [place] % 9.5 5.1-13.7 Eos % 1.1 0.4-6.8 Baso % 0.6 0.1-2.0 Neut, Abs 5.34 10*3/uL 2.20-7.60 Lymph, Abs 2.13 10*3/uL 1.00-3.20 Eos, Abs 0.09 10*3/uL 0.03-0.44 Baso, Abs 0.05 10*3/uL 0.01-0.13 Immature Gran % 0.6 0.0-0.7 Immature Gran, Abs 0.05 10*3/uL 0.00-0.06 Advance Directives: All historical and current Section Date Range: From patient's date of to the date document was created. This section includes ALL of a patient's completed or amended [place] Advance and Rescinded Directives. The entries below indicate that a directive exists for the patient, but an actual copy is not included with this document. The data comes from all [place] facilities. Date Advance Directives Provider Source Jun 25, 2023 ADVANCE DIRECTIVE DISCUSSION AMAYA FRANZ [place] [facility] [facility] Aug 06, 2017 ADVANCE DIRECTIVE ABDIRASHID [place] [employer] Encounter Notes: All associated encounter notes This section contains the clinical notes associated to the Encounter. Date/Time Encounter Note(s) Provider Source Jun 18, 2023 07:57 AM OPTOMETRY NOTE: LOCAL TITLE: OPTOMETRY NOTE STANDARD TITLE: OPTOMETRY NOTE DATE OF NOTE: JUN 18, 2023@07:57 ENTRY DATE: JUN 18, 2023@07:57:21 AUTHOR: ZAMZAM RAGLAND EXP COSIGNER: DEAN GODOY URGENCY: STATUS: COMPLETED OPTOMETRY NOTE Has ADDENDA Active problems - Computerized Problem List is the source for the followin. Atrial flutter 2. Long-term current use of anticoagulant 3. Admits alcohol use 4. Steatosis of liver 5. Hypertension 6. Attention deficit hyperactivity disorder, predominantly inattentive type 7. Impaired fasting glucose 8. Cataract, Unspecified 9. Degenerative joint disease 10. Major depressive disorder Active Outpatient Medications (including Supplies): Active Outpatient Medications Status 1) AMLODIPINE BESYLATE 5MG TAB TAKE ONE TABLET BY MOUTH ACTIVE ONCE DAILY FOR BLOOD PRESSURE, DO NOT TAKE WITH GRAPEFRUIT JUICE 2) AMPHETAMINE/DEXTROAMPHET 20MG SA CAP TAKE ONE CAPSULE ACTIVE BY MOUTH ONCE DAILY FOR ADHD WITH HYPERACTIVITY NEXT FILL 06/21/23 3) APIXABAN 5MG TAB TAKE ONE TABLET BY MOUTH EVERY 12 ACTIVE HOURS FOR PREVENTION OF BLOOD CLOTS 4) BUPROPION HCL 200MG 12HR SA TAB TAKE ONE TABLET BY ACTIVE MOUTH ONCE DAILY FOR DEPRESSION 5) CICLOPIROX 8% TOP SOLN APPLY SMALL AMOUNT TOPICALLY ACTIVE ONCE DAILY WIPE OFF WITH ALCOHOL EVERY 7 DAYS; MAX USE 12 MONTHS 6) FLUOCINONIDE 0.05% CREAM APPLY A SMALL AMOUNT ACTIVE TOPICALLY ONCE DAILY FOR PALMAR PSORIATIC LESIONS 7) LISINOPRIL 10MG TAB TAKE ONE TABLET BY MOUTH ONCE ACTIVE (S) DAILY TO CONTROL BLOOD PRESSURE 8) METOPROLOL SUCCINATE 50MG SA TAB TAKE ONE TABLET BY ACTIVE MOUTH AT BEDTIME FOR HIGH BLOOD PRESSURE (NOTE DOSE) 9) MOISTURIZING LOTION APPLY LIBERAL AMOUNT TOPICALLY ACTIVE ONCE DAILY NEEDED FOR DRY SKIN 10) SUNSCREEN 30-50/AVOBENZONE/PABA-F LOTION APPLY A ACTIVE LIBERAL AMOUNT TOPICALLY NEEDED TO PREVENT SUNBURN 11) SUNSCREEN 30-50/PHY BLOCK/PABA-F FACE CR APPLY A [...] SULFATE) CAP 220MG BY MOUTH ACTIVE DAILY 18 Total Medications Allergies: Patient has answered NKA All medications including those prescribed by outside VA's, community providers, and all OTC meds were reviewed and reconciled with patient to the best of their abilities. This 67 year old MALE is seen today for a comprehensive eye exam Chief Complaint: Difficulty with night driving for the past couple years OU. Really bothered by glare. Patient says he was put on blood thinners a month ago. MICHELLE 08/2022 at [place] [facility] [place]x: 1. HTN w/o retinopathy OU 2. Combined cataracts OU 3. H/o metallic FB 2007 4. Refractive error, Presbyopia OU (-) Pain: (-) HUMPHREY: (-) Diplopia: (-) Flashes: (+) Floaters: (-) Amaurosis Fugax/Tia's: (+) Eye Injury: metallic 2007 (-) Eye Surgery: (-) TBI FOHx: (-) Glaucoma/ARMD/Blindness (-) Smoker/Length of Time/PPD: Current Rx with last BCVA: OD: -2.75 -0.75 x 160 20/20 OS: -2.00 -1.75 x 065 20/20-2 Add: +2.50 DVA ( )sc ( x )cc OD: 20/20 OS: 20/20-2 Pupils: PERRL (-)APD EOMs: SAFE OU, (-)Pain/Diplopia CVF (facial, peripheral): FTFC OU Subjective Refraction: OD: -2.75 -0.75 x 160 20/20 OS: -1.75 -1.75 x 065 20/20-1 Add: +2.50 Int add: +1.50 All the above performed by student, reviewed by attending Anterior segment: Performed by student, repeated by attending Lids: dermatochalasis OU, 1+ bleph OU Conj: white and quiet OU Cornea: clear OD, small scar OS AC: 3 N/T OU Iris: flat and clear OU, (-) TID OU Lens: 1-2+ NS OU, trace ACC OU and some central vacuoles OS (-)PXF/PDS OU Tonometry: GAT Performed by student, reviewed by attending * OD 12 mmHg OS 12 mmHg Time: 8:13 AM Last IOP: OD: 16 mmHg OS: 16 mmHg Fundus exam: Dilated: 8:14 AM Non dilated: Dilating Drops: 1GTT 1 % Tropicamide OU & 1GTT 2.5% Phenylephrine OU (Pt. ed. on side effects, dilation warning given and verbal consent obtained) Patient advised not to drive if they feel they have any symptoms which could affect their ability to drive safely. Patient advised not to engage in any activities which could put themselves or others at risk if they feel they have any symptoms which could affect their ability to perform those activities safely. Performed by student, repeated by attending * Vit: PVD OU C/D: 0.30/0.30 OD, 0.25/0.25 OS Disc: Rim tissue is pink and healthy OU Macula: flat OU, [address] OS, circinate exudates OS(OCT shows intrraretinal fluid) PPole: clear OU A/V: 2/3 Vessels: normal caliber OU Periph: flat and intact (-)holes, tears, detachments 360 OU Assessment/Plan: 1. sensory retinal detachment OS possible ALLEY TENDER vs [facility] Community Care consult to [facility] vinnie. 2. NS cataracts OU Defer any surgery pending retinal eval. Acuity is good but pt very bothered by glare 3. myopia OU and regular astigmatism OU Defer any new glasses pending retina eval Return to Clinic 8-10 week or earlier PRN Patient Education: Reviewed exam findings and answered all questions. Medication Reconciliation: Outpatient: Has the patient been taking medications as documented in the EMLR? YES: The patient has been taking medications as documented in the EMLR. Essential Medication List for Review used to complete this medication reconciliation. INCLUDED IN THIS LIST: Alphabetical list of active outpatient prescriptions dispensed from this VA (local) and dispensed from another [place] or DoD facility (remote) as well as [...] whether with a VA or non-VA provider. Medication List: JLV Link Data on this list may not be complete. Please check JLV. Allergies/ADRs (Tool #5) FACILITY ALLERGY/ADR -------- No Remote Allergy/ADR Data available for this patient [place] [facility] [facility] No Known Allergies Med. Reconciliation (Tool #1) INCLUDED IN THIS LIST: Alphabetical list of active outpatient prescriptions dispensed from this VA (local) and dispensed from another [place] or DoD facility (remote) as well as inpatient orders (local pending and active), local clinic medications, locally documented non-VA medications, and local prescriptions that have or been discontinued in the past 90 days. Non-VA Meds Last Documented On: Apr 04, 2018 NOTE The display of VA prescriptions dispensed from another [place] or [facility] facility (remote) is limited to active outpatient prescription entries matched to National Drug File at the originating site and may not include some items such as investigational drugs, compounds, etc. NOT INCLUDED IN THIS LIST: Medications self-entered by the patient into personal health records (i.e. [employer]) are NOT included in this list. Non-VA medications documented outside this [place], remote inpatient orders (regardless of status) and remote clinic medications are NOT included in this list. The patient and provider must always discuss medications the patient is taking, regardless of where the medication was dispensed or obtained. OUTPT AMLODIPINE BESYLATE 5MG TAB (Status = Discontinued) TAKE ONE TABLET BY MOUTH ONCE DAILY FOR BLOOD PRESSURE/HEART, DO NOT TAKE WITH GRAPEFRUIT JUICE Rx# [id number] Last Released: 04/24/23 Qty/Days Supply: Rx Expiration Date: 05/07/23 Refills Remainin OUTPT AMLODIPINE BESYLATE 5MG TAB (Status = Active) TAKE ONE TABLET BY MOUTH ONCE DAILY FOR BLOOD PRESSURE, DO NOT TAKE WITH GRAPEFRUIT JUICE Rx# [id number] Last Released: 05/12/23 Qty/Days Supply: Rx Expiration Date: 04/28/24 Refills Remainin Indication: FOR HIGH BLOOD PRESSURE OUTPT AMPHETAMINE/DEXTROAMPHET 20MG SA CAP (Status = Discontinued) TAKE ONE CAPSULE BY MOUTH ONCE DAILY FOR ADHD WITH HYPERACTIVITY NEXT FILL 04/23/23 Rx# [id number] Last Released: 03/26/23 Qty/Days Supply: Rx Expiration Date: 04/24/23 Refills Remainin Indication: FOR ADHD WITH HYPERACTIVITY OUTPT AMPHETAMINE/DEXTROAMPHET 20MG SA CAP (Status = Discontinued) TAKE ONE CAPSULE BY MOUTH ONCE DAILY FOR ADHD WITH HYPERACTIVITY NEXT FILL 05/24/23 Rx# [id number] Last Released: 04/26/23 Qty/Days Supply: Rx Expiration Date: 05/23/23 Refills Remainin Indication: FOR ADHD WITH HYPERACTIVITY OUTPT AMPHETAMINE/DEXTROAMPHET 20MG SA CAP (Status = Active) TAKE ONE CAPSULE BY MOUTH ONCE DAILY FOR ADHD WITH HYPERACTIVITY NEXT FILL 06/21/23 Rx# [id number] Last Released: 05/21/23 Qty/Days Supply: Rx Expiration Date: 06/20/23 Refills Remainin Indication: FOR ADHD WITH HYPERACTIVITY OUTPT APIXABAN 5MG TAB (Status = Discontinued) TAKE ONE TABLET BY MOUTH EVERY 12 HOURS FOR PREVENTION OF BLOOD CLOTS Rx# [id number] Last Released: 04/28/23 Qty/Days Supply: Rx Expiration Date: 05/28/23 Refills Remainin Indication: FOR PREVENTION OF BLOOD CLOTS OUTPT APIXABAN 5MG TAB (Status = Active) TAKE ONE TABLET BY MOUTH EVERY 12 HOURS FOR PREVENTION OF BLOOD CLOTS Rx# [id number] Last Released: 06/04/23 Qty/Days Supply: Rx Expiration Date: 07/04/23 Refills Remainin Indication: FOR PREVENTION OF BLOOD CLOTS Non-VA ASCORBIC ACID 500MG TAB TAKE ONE TABLET BY MOUTH DAILY Patient wants to buy from Non-[place] pharmacy. OUTPT BUPROPION HCL 200MG 12HR SA TAB (Status = Active) TAKE ONE TABLET BY MOUTH ONCE DAILY FOR DEPRESSION Rx# [id number] Last Released: 05/17/23 Qty/Days Supply: Rx Expiration Date: 02/02/24 Refills Remainin Indication: FOR DEPRESSION OUTPT CICLOPIROX 8% TOP SOLN (Status = Active) APPLY SMALL AMOUNT TOPICALLY ONCE DAILY WIPE OFF WITH ALCOHOL EVERY 7 DAYS; MAX USE 12 MONTHS Rx# [id number] Last Released: 12/18/22 Qty/Days Supply: Rx Expiration Date: 10/15/23 Refills Remainin Indication: FOR FUNGAL DISEASE OF THE NAILS Non-VA FISH OIL 1000MG (500MG DHA/EPA) CAP TAKE 1 CAPSULE BY MOUTH DAILY Patient wants to buy from Non-[place] pharmacy. OUTPT FLUOCINONIDE 0.05% CREAM (Status = Active) APPLY A SMALL AMOUNT TOPICALLY ONCE DAILY FOR PALMAR PSORIATIC LESIONS Rx# [id number] Last Released: 03/31/23 Qty/Days Supply: 60 Rx Expiration Date: 06/24/23 Refills Remainin Indication: FOR PALMAR PSORIATIC LESIONS Non-VA HOMA CAP/TAB TAKE DOSE UNKNOWN BY MOUTH ONCE DAILY Patient wants to buy from Non-VA pharmacy. OUTPT LISINOPRIL 10MG TAB (Status = Discontinued) TAKE ONE TABLET BY MOUTH ONCE DAILY TO CONTROL BLOOD PRESSURE Rx# [id number] Last Released: 02/18/23 Qty/Days Supply: 9090 Rx Expiration Date: 11/20/23 Refills Remainin OUTPT LISINOPRIL 10MG TAB (Status = Active/Suspended) TAKE ONE TABLET BY MOUTH ONCE DAILY TO CONTROL BLOOD PRESSURE Rx# [id number] Last Released: 05/17/23 Qty/Days Supply: 90/90 Rx Expiration Date: 05/14/24 Refills Remainin OUTPT METOPROLOL SUCCINATE 25MG SA TAB (Status = Discontinued) TAKE TWO TABLETS BY MOUTH AT BEDTIME FOR BLOOD PRESSURE/HEART Rx# [id number] Last Released: 04/28/23 Qty/Days Supply: 6030 Rx Expiration Date: 05/28/23 Refills Remainin OUTPT METOPROLOL SUCCINATE 25MG SA TAB (Status = Discontinued) TAKE TWO TABLETS BY MOUTH AT BEDTIME FOR BLOOD PRESSURE/HEART Rx# [id number] Last Released: 05/17/23 Qty/Days Supply: 6030 Rx Expiration Date: 06/13/23 Refills Remainin OUTPT METOPROLOL SUCCINATE 50MG SA TAB (Status = Active) TAKE ONE TABLET BY MOUTH AT BEDTIME FOR HIGH BLOOD PRESSURE (NOTE DOSE) Rx# [id number] Last Released: 05/28/23 Qty/Days Supply: 90 Rx Expiration Date: 05/27/24 Refills Remainin Indication: FOR HIGH BLOOD PRESSURE OUTPT MOISTURIZING LOTION (Status = Active) APPLY LIBERAL AMOUNT TOPICALLY ONCE DAILY NEEDED FOR DRY SKIN Rx# [id number] Last Released: 03/27/23 Qty/Days Supply: 480/90 Rx Expiration Date: 10/07/23 Refills Remainin Indication: FOR DRY SKIN Non-VA MULTIVITAMIN CAP/TAB TAKE ONE TABLET BY MOUTH ONCE DAILY Patient wants to buy from Non[place] pharmacy. Non-[place] OTHER CAP/TAB TAKE MEDIUM CHAIN TRIGLYCERIDES BY MOUTH ONCE DAILY Patient wants to buy from Non-VA pharmacy. Non-VA OTHER CAP/TAB TAKE PLANT PROTEIN BY MOUTH ONCE DAILY Patient wants to buy from [place] pharmacy. OUTPT SUNSCREEN 30-50/AVOBENZONE/PABA-F LOTION (Status = Active) APPLY A LIBERAL AMOUNT TOPICALLY NEEDED TO PREVENT SUNBURN Rx# [id number] Last Released: 04/01/23 Qty/Days Supply: 480/90 Rx Expiration Date: 10/07/23 Refills Remainin Indication: TO PREVENT SUNBURN OUTPT SUNSCREEN 30-50/PHY BLOCK/PABA-F FACE CR (Status = Active) APPLY A LIBERAL AMOUNT TOPICALLY NEEDED TO PREVENT SUNBURN Rx# [id number] Last Released: 10/08/22 Qty/Days Supply: 360/90 Rx Expiration Date: 10/07/23 Refills Remainin Indication: TO PREVENT SUNBURN Non-VA ZINC 50MG (FROM SULFATE) CAP TAKE 1 CAPSULE BY MOUTH DAILY Patient wants to buy from [place] pharmacy. SUPPLIES PHARMACY TERMS AND POSSIBLE PATIENT ACTIONS [place] intravenous medication [place]PT = [place] outpatient prescription PHARMACY POSSIBLE PATIENT TERMS EXPLANATION ACTIONS -------- ------ ACTIVE A prescription that can be If you have refills, filled at the local [facility] pharmacy. you may request a refill of this prescription from your [facility] pharmacy. CLINIC A medication you received during If you have questions a visit to a [facility] clinic or about this medication emergency department. contact your VA healthcare team. DISCONTINUED A prescription your provider has Contact your [facility] stopped. It is no longer healthcare team if you available to be sent to you or need more of this picked up at the VA pharmacy medication. window. A prescription which is too old Contact your [facility] to fill. This does not refer to healthcare team if you the expiration date of the need more of this medication in the container. medication. NON-VA A medication that came from If this medication someplace other than a VA information is pharmacy. This may be a incorrect or out of prescription from either the VA date, please tell your or non VA providers that was VA healthcare team. filled outside the VA. Or, it may be an awow-mvv-imhpywz (OTC), herbal, dietary supplements or sample medication. ON HOLD An active prescription that will Contact your [facility] not be filled until pharmacy pharmacy when you need resolves the issue. more of this medication. PARKED An active prescription that will Contact your [facility] not be filled until the patient pharmacy when you need requests it. this medication. PENDING This prescription order has been If you have been sent to the pharmacy for review instructed to start and is not ready yet. this medication now, contact your VA pharmacy. SUSPENDED An active prescription that is Contact your [facility] not scheduled to be filled yet. pharmacy if you need You should receive it before this medication now. you run out. /brenda/ Dean Godoy OD Fee Basis Back Wedger Signed: 06/18/2023 09:52 for ZAMZAM [employer]AG[employer] STUDENT /roberto Godoy OD Fee Basis Back Wedger Cosigned: 06/18/2023 09:52 06/18/2023 ADDENDUM STATUS: COMPLETED I reviewed all findings with the tangled yarn spool straightener. I performed the slit lamp exam and dilated fundus exam. 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 Progress note reviewed and edited as needed. I established the plan of care and educated the patient about his conditions. Pt deferred receiving a list of current medications /es/ Dean Godoy OD Fee Basis Back Wedger Signed: 06/18/2023 09:53 DEAN GODOY [place] [facility]
--- OUTSIDE RECORDS SUMMARY | 2024-06-06 17:58 | XMS_ITS | Encounter Summary ---
Author Name [facility] [place] [facility] [place] Address [address] [place] [id number] Care Team Providers Care Residential Fee Appraiser Name Role Phone JOSSELIN CHERY Primary Care [...] Name Patient's Relationship to Policy [facility] CE [employer]GANESPERANZA [employer] Y Aug 29, 2017 [id number] [phone] Kathy ESTRADA [facility] Mar 01, 2014 [id number] [phone] Kathy ESTRADA SPOUSE MEDICARE (WNR) MEDICARE (M) PART A Sep 29, 2020 PART A [id number] [facility] [phone] Guanakito ESTRADA PATIENT MEDICARE (WNR) MEDICARE (M) PART A Sep 29, 2020 PART A [id number] [facility] Guanakito ESTRADA PATIENT Selected Encounter This section includes the information on record at [place] for the Encounter. Date/Time Encounter Type Encounter Description Reason Provider Source Jun 01, 2024 01:00 PM OFFICE O/P NEW [place] 60 MIN DERMATOLOGY ICD-10-CM I78.1 Nevus, non-neoplasti c SMILEY VALVERDE IN IHE Encounter Template Text not used by [place] Assessments - Encounter Diagnoses This section includes the primary and secondary diagnoses documented for the Encounter. Date/Time Primary/Secondary Diagnosis Diagnosis Name Provider Source Jun 01, 2024 02:04 PM PRIMARY Nevus, non-neoplastic [facility] [place] [facility] Jun 01, 2024 02:04 PM SECONDARY [facility]keratosis [facility]aws [facility] [place] [facility] Jun 01, 2024 02:04 PM SECONDARY Neoplasm of uncertain behavior of skin [facility] [place] [facility] Jun 01, 2024 02:04 PM SECONDARY Other melanin hyperpigmentation [facility] [place] [facility] Jun 01, 2024 02:04 PM SECONDARY Other seborrheic keratosis [facility] [place] [facility] Jun 01, 2024 02:04 PM SECONDARY [facility]erosis cutis [facility] [place] [facility] Plan of Treatment: Future Appointments (+ 6 months) and Future Tests (+/- 45 days) The Plan of Treatment section includes future care activities for the patient from all [place] treatmentfacilities. This section includes future appointments and future orders which are active, pending or scheduled. Future Appointments This section includes appointments that were scheduled to occur 6 months from the date of the Encounter, up to a maximum of 20 appointments. The data comes from all [place] treatment facilities. Appointment Date/Time Appointment Type Appointme nt Facility Name Jun 08, 2024 03:30 PM AMBULATORY - PSYCHIATRY [place] [facility] [place] [facility] Jun 20, 2024 02:00 PM AMBULATORY - MEDICINE [place] C [facility] [facility] Aug 28, 2024 11:30 AM AMBULATORY - MEDICINE [place] C [facility] [place] [facility] Nov 28, 2024 04:00 PM AMBULATORY - MEDICINE [place] C [facility] [place] [facility] Active, Pending, [...] of theEncounter. The data comes from all [facility] facilities. Test Date/Time Test Type Test Details Facility Name May 03, 2024 12:00 AM Laboratory - Chemistry Order LIPID PANEL FASTING BLOOD (SST-SERUM) [facility] May 03, 2024 12:00 AM Laboratory - Chemistry Order CERULOPLASMIN BLOOD (SST-SERUM) [facility] May 03, 2024 12:00 AM Laboratory - Chemistry Order HEPATITIS B SURFACE ANTIBODY (HBsAb)- BLOOD (SST-SERUM) [facility] May 03, 2024 12:00 AM Laboratory - Chemistry Order HEPATITIS B SURFACE ANTIGEN (HBsAg)- BLOOD (SST-SERUM) [facility] May 03, 2024 12:00 AM Laboratory - Chemistry Order HEPATITIS C ANTIBODY (HCV)-ARC BLOOD (MARBLED-TOP SERUM) [facility] May 03, 2024 12:00 AM Laboratory - Chemistry Order FERRITIN BLOOD (SST-SERUM) [facility] May 03, 2024 12:00 AM Laboratory - Chemistry Order IRON & TIBC PANEL BLOOD (SST-SERUM) [facility] May 03, 2024 12:00 AM Laboratory - Chemistry Order RODY SCREEN/TITER BLOOD (SST-GOLD) SERUM [facility] May 03, 2024 12:00 AM Laboratory - Chemistry Order ALPHA 1 ANTITRYPSIN BLOOD (SST-SERUM) [facility] May 03, 2024 12:00 AM Laboratory - Chemistry Order LIVER FUNCTION BLOOD (SST-SERUM) [facility] May 03, 2024 12:00 AM Laboratory - Chemistry Order CBC AND DIFF (AUTO) BLOOD (LAV-BLOOD) [facility] May 03, 2024 12:00 AM Laboratory - Chemistry Order BASIC METABOLIC PANEL (non-fasting) BLOOD (SST-SERUM) [facility] May 03, 2024 12:00 AM Laboratory - Chemistry Order ALBUMIN BLOOD (SST-SERUM) [facility] May 03, 2024 12:00 AM Laboratory - Chemistry Order HEPATITIS A ANTIBODY (IGG) BLOOD (SST-SERUM) [facility] May 03, 2024 10:31 AM Laboratory - Chemistry Order PT & INR (PROTIME) BLOOD (BLUE-PLASMA) [facility] Jun 01, 2024 12:00 AM Laboratory - Chemistry Order SURGICAL PATH ORDER SURG PATH SPEC. UNKNOWN [facility] Jun 06, 2024 11:39 AM Consult Order SURGERY/CWM OUTPT Cons Motor Coach Chauffeur's Choice [facility] Advance Directives: All historical and current Section Date Range: From patient's date of to the date document was created. This section includes ALL of a patient's completed or amended [place] Advance and Rescinded Directives. The entries below indicate that a directive exists for the patient, but an actual copy is not included with this document. The data comes from all [place] facilities. Date Advance Directives Provider Source Jun 25, 2023 ADVANCE DIRECTIVE DISCUSSION AMAYA FRANZ [facility] Aug 06, 2017 ADVANCE DIRECTIVE ABDIRASHID [...] the Encounter. The data comes from all [place] treatment facilities. Date/Time Radiology Report Provider Source May 18, 2024 08:30 AM ULTRASOUND ABD WITH LIVER ELASTOGRAPHY: EAM ESTRADA [id number] -1955 M Exm Date: MAY 18, 2024@08:30 Req Phys: JOSSELIN CHERY Loc: SPR SICK CALL SOLDERER PRODUCTION LINE (Req'g Loc) Img Loc: ULTRASOUND Service: Unknown [facility] NAE, SUSHMA [id number] (Case [id number] COMPLETE) ULTRASOUND ABDOMEN LIMITED (US Detailed) CPT:33828 Reason for Study: fatty liver, ETOH (Case [id number] COMPLETE) ULTRASOUND ELASTOGRAPHY PARENCHYM(US Detailed) CPT:36931 Clinical History: Report Status: Verified Date Reported: MAY 18, 2024 Date Verified: MAY 18, 2024 Handbag Framer E-Sig:/ES/EDWARD A SANCHEZ JR Report: Study: Abdominal ultrasound with [...] is normal. No gallstones are identified. The lockstitch front edge tape sewer reports a negative sonographic Carranza sign is [...] Primary Interpreting Staff: MAVERICK SANCHEZ JR, Radiologist (Handbag Framer) /MAVERICK DU JR [facility] Pathology Reports: +/- 30 days of [...] the Encounter. The data comes from all [place] treatment facilities. Date/Time Pathology Report Provider Source Jun 06, 2024 08:56 AM LR SURGICAL PATHOLOGY REPORT: LOCAL TITLE: LR SURGICAL PATHOLOGY REPORT STANDARD TITLE: PATHOLOGY DIAGNOSTIC STUDY REPORT DATE OF NOTE: JUN 06, 2024@08:56:18 ENTRY DATE: JUN 06, 2024@08:56:18 AUTHOR: MERVIN NGUYEN MD EXP COSIGNER: URGENCY: STATUS: COMPLETED $APHDR Reporting Lab: [facility] [CLIA# [id number]] [address] [place] [phone] - - - - - - - [...] - - - - PATHOLOGY REPORT Accession NoKyra NGUYEN 25 150 - - - - - [...] - - - PATHOLOGY REPORT [facility] - - - - - - - - - - - - - - - - - - - - - - - - - - - - - - - - - - - - - - - - Gross description: The specimen is recieved from [facility] -[address] [facility] 097;;1;Guanakito ESTRADA Received in formalin labeled with the [...] cross sections in cassette 2. RAPHAEL Rivas ([facility]) 06/02/2024 Skin, left upper back: Malignant melanoma [...] 06, 2024 at 8.30 AM. CPT codes 98654, 47064 /es/ MERVIN NGUYEN MD Board Certified Dermatopathologist Signed Jun 06, 2024@08:56 Performing Laboratory: Surgical Pathology Report Performed By: [facility] [CLIA# [id number]] [address] [place] [phone] $FTR - - - - - - [...] - - EMA ESTRADA STANDARD FORM 515 ID:[id number] SEX:M :1955 AGE: 68 LOC:[facility] DERMATOLOGY SOLDERER PRODUCTION LINE 1 PM PCP: Josselin Chery /brenda/ MERVIN NGUYEN MD Board Certified Dermatopathologist Signed: 06/06/2024 08:56 MERVIN NGUYEN MD [facility] Encounter Notes: All associated encounter notes This section contains the clinical notes associated to the Encounter. Date/Time Encounter Note(s) Provider Source Jun 06, 2024 11:39 AM TELEPHONE ENCOUNTER NOTE: LOCAL TITLE: TELEPHONE NOTE/SPECIALTY CLINIC STANDARD TITLE: TELEPHONE ENCOUNTER NOTE DATE OF NOTE: JUN 06, 2024@11:39 ENTRY DATE: JUN 06, 2024@11:39:35 AUTHOR: GABY VALVERDE EXP COSIGNER: URGENCY: STATUS: COMPLETED S:Called EMA ESTRADA, PATIENT PHONE - re: Biopsy Results O: Spoke with , confirmed Name and SSN, discussed biopsy results: LAB SURGICAL PATHOLOGY Collected: 06/01/2024 13:00Acc:WENDY 25 150 Surgeon/Physician: GABY VALVERDE Specimen: SKIN,BACK Brief Clinical Hx: SKIN BIOPSY LEFT UPPER BACK 7mm HYPERPIGMENTED MACULE WITH IRREGULAR BORDERS Gross Description: The specimen is recieved from [facility] 25-[address] [facility] 6900;;1;Guanakito ESTRADA Received in formalin labeled with the [...] cross sections in cassette 2. RAPHAEL Rivas (ASCP) 06/02/2024 Microscopic Exam: Skin, left upper back: Malignant melanoma in [...] 06, 2024 at 8.30 AM. CPT codes 91089, 85728 A/P: #MMIS -NHM Surgery consult placed for WLE -RTC placed for 6m FSE Total Time Spent on Tele Visit: 12 min Upcoming Appointments: 06/08/2024 15:30 [facility] SOLDERER PRODUCTION LINE 1 08/28/2024 11:30 [facility] OPTOMETRY 4 05/30/2025 14:30 [facility] DERMATOLOGY SOLDERER PRODUCTION LINE 1 PM /brenda/ GABY VALVERDE DNP, JUMPBASTING FACING BASTER-C NURSE PRACTITIONER Signed: 06/06/2024 11:40 GABY VALVERDE [place] [facility] [place] [facility] Jun 01, 2024 01:15 PM DERMATOLOGY CONSULT: LOCAL TITLE: CONSULT REPORT/DERMATOLOGY STANDARD TITLE: DERMATOLOGY CONSULT DATE OF NOTE: JUN 01, 2024@13:15 ENTRY DATE: JUN 01, 2024@13:15:50 AUTHOR: GABY VALVERDE EXP COSIGNER: URGENCY: STATUS: COMPLETED CONSULT REPORT/DERMATOLOGY Has ADDENDA JUN 01, 2024 ALVINATimoteoEMA Sep 68 PATIENT PHONE - Patient here for: NEW CONSULT CHIEF COMPLAINT: Seborrheic Keratosis HPI: Adona presents s/p TeleDerm 09/2023. Reviewed images and report. Adona uses aquaphor ointment [[place] Rx] for dry skin. Especially on palms - gets dry keratotic areas, fissures on occasion, onset a few years ago. reports last year he started kachava from online - a drink powder - approx 2 weeks later - broke out with rash. Has since stopped - rash resolved. Adona denies any other new/changing/bleeding/non-hea ling lesions. Reviewed records in [facility] and Remote Data (all available). REVIEW OF SYSTEMS: Constitutional-neg Skin/Hair/Nails-see HPI DermHx: Denies h/o MM Family Hx: Denies known h/o MM PastMedHx: Reviewed History of Sun Exposure/Sunburns: +yes h/o blistering burn [once in youth]. Denies prior use of tanning beds. Active Outpatient Medications (including Supplies): Active Outpatient [...] BY MOUTH DAILY ACTIVE 18 Total Medications PHYSICAL EXAM: Servin Skintype II General-AxOx3, NAD, pleasant, breathing unlabored, speech clear Cutaneous examination, as permitted by the patient, including scalp, face, eyes, ears, neck, chest, back, abdomen, arms, hands, fingers Pertinent findings per below: -L upper back 7mm hyperpigmented macule with irregular borders -L hand/arm without erythema, rash or lesions [as prev noted in TeleDerm] -Multiple scattered stuck-on appearing waxy carrillo and brown papules and plaques with noted milia-like cysts, comedo-like openings and fissures/ridges on dermoscopy. -Scattered uniformly pigmented light carrillo and brown jagged macules in sun distributed areas. -Generalized xerosis -Multiple scattered symmetrical evenly pigmented brown macules and papules, most under 6mm. -bilat palms, central aspect with flesh tone thin hyperkeratotic plaques, R>L, R medial aspect of hand also with hyperkeratosis Diagnosis/Plan: #Nevi: -ABCDEs of melanotic lesions discussed, self examinations encouraged -No concerning lesions today on examination -A full body skin check is recommended yearly -Photoprotection discussed. #Seborrheic Keratoses: -The Adona was educated regarding the benign nature, but to return with any growth, change or symptoms in area. #Solar Lentigines -The was educated regarding the benign nature and relation to chronic sun exposure, but to return with any growth, change or symptoms in area. -Photoprotection discussed. #Xerosis -Advised to continue liberal emollients. [facility]. #Hyperkeratosis -Location: Hands, Palms -DDx: callus vs xerosis vs atopic dermatitis vs other -START topical clobetasol 0.05% cream BID for 2 weeks then PRN. Max 14d/m. -Application instructions discussed -Risks/benefits/alternatives discussed -Side effects including but not limited to thinning of the skin (atrophy), lightening (hypopigmentation), increased appearance of superficial blood vessels (telangiectasias) and stretch bush discussed. -If no improvement in 6-8 weeks, reach out to clinic. #Neoplasm of Uncertain Behavior -Site: L upper back -Biopsy advised; DDx: Pigmented AK vs Dysplastic Nevi ##Shave Biopsy Procedure: -The purpose, benefits, risks (infection, bleeding and scar) and alternatives of the procedure were discussed. -Verbal informed consent was obtained. Patient consents to pictures to be taken for documentation. -The surgical site was confirmed with the patient. Time out was implemented to confirm patient's name, date of , location of the lesion and indication for the biopsy. -Pre-Procedure Pain: 0 -Biopsy site was swabbed with alcohol. -Anesthesia achieved by local infiltration of lesion with 1% lidocaine with epinephrine 1:100,000. -A tangential shave specimen was taken from the site to the depth of the dermis using a flexible dermablade. -Hemostasis was achieved with aluminum chloride (Drysol). -Routine wound care was performed and a dressing was applied using Vaseline and a Bandage. -The patient tolerated the procedure well without complications. -Post-Procedure Pain: 0 -Wound care was reviewed and a printed copy was given to the patient. -Plan of care to be discussed once biopsy results return. -Discussed with that if results are benign (non-cancerous), a letter will be mailed indicating this and that no further treatment is required. -Advised that if they do not receive a letter or a phone call within 2-3 weeks, to reach out to clinic and inquire on biopsy results. RTC 1 yr, sooner PRN * Adona educated to RTC vinnie if any new, changing, non-healing, or symptomatic lesions. * Education on sun protection and avoidance strategies was provided. * Encouraged monthly skin self exams for lesions changing in size, shape, or color, or non-healing lesions * Differential diagnosis, prescription options and risks/benefits were discussed with the patient, who consented to treatment plan. * Adona consented to photography for documentation if indicated. * A dermatoscope was used during the exam. * NUB = Neoplasm of Uncertain Behavior of Skin * NMSC = Nonmelanoma Skin Cancer * AK = Actinic Keratosis ------TIME ESTIMATION To include but not limied to: -Review of medical records -Time spent with patient including obtaining history, physical exam, shared decision making, procedures and counseling -Post visit documentation; HPI and physical exam findings, clinical researching, medical decision making, medication and lab ordering Total estimated time = 60 min ---- Medication Reconciliation: Outpatient: Has the patient been taking medications as documented in the EMLR? YES: The patient has been taking medications as documented in the EMLR. Essential Medication List for Review used to complete this medication reconciliation. INCLUDED IN THIS LIST: Alphabetical list of active outpatient prescriptions dispensed from this [place] (local) and dispensed from another [place] or [facility] facility (remote) as well [...] whether with a VA or non-VA provider. JLV Link Data on this list may not be complete. Please check JLV. Allergies/ADRs (Tool #5) FACILITY ALLERGY/ADR -------- No Remote Allergy/ADR Data available for this patient [place] [facility] [place] [facility] No Known Allergies Med Recon NoGlossary (Tool #1) INCLUDED IN THIS LIST: Alphabetical list of active outpatient prescriptions dispensed from this [place] (local) and dispensed from another [facility] or [...] the patient into personal health records (i.e. [employer]) are NOT included in this list. Non-VA medications documented outside this [place], remote inpatient orders (regardless of status) and remote clinic medications are NOT included in this list. The patient and provider must always discuss medications the patient is taking, regardless of where the medication was dispensed or obtained. OUTPT ACAMPROSATE CA 333MG EC TAB (Status = On Hold) TAKE TWO TABLETS BY MOUTH THREE TIMES DAILY WITH MEALS TO BE USED UNTIL REMAINDER OF REGULAR PRESCRIPTION ARRIVES IN THE MAIL Rx# [id number] Last Released: 07/19/23 Qty/Days Supply: / Rx Expiration Date: 07/16/24 Refills Remainin Indication: FOR CRAVINGS OUTPT AMLODIPINE BESYLATE 5MG TAB (Status = Active) TAKE ONE TABLET BY MOUTH ONCE DAILY FOR BLOOD PRESSURE/HEART, DO NOT TAKE WITH GRAPEFRUIT JUICE Rx# [id number] Last Released: 04/07/24 Qty/Days Supply: 90/ Rx Expiration Date: 01/13/25 Refills Remainin Indication: FOR HIGH BLOOD PRESSURE OUTPT APIXABAN 5MG TAB (Status = Active) TAKE ONE TABLET BY MOUTH EVERY 12 HOURS Rx# [id number] Last Released: 04/27/24 Qty/Days Supply: Rx Expiration Date: 11/11/24 Refills Remainin Indication: FOR PREVENTION OF BLOOD CLOTS Non-VA ASCORBIC ACID 500MG TAB TAKE ONE TABLET BY MOUTH DAILY Patient wants to buy from Non-VA pharmacy. OUTPT BUPROPION HCL 300MG 24HR SA TAB (Status = Active/Suspended) TAKE ONE TABLET BY MOUTH EVERY MORNING MOOD Rx# [id number] Last Released: 04/07/24 Qty/Days Supply: Rx Expiration Date: 12/24/24 Refills Remainin Indication: MOOD OUTPT CLOBETASOL PROPIONATE 0.05% CREAM (Status = Pending) APPLY A THIN LAYER TOPICALLY TWICE DAILY NEEDED for itching/rash apply to hands as needed. Max 14d/m Login Date: 06/01/24 Qty/Days Supply: 60 Refills Ordered: 11 Non-VA FISH OIL 1000MG (500MG DHA/EPA) CAP TAKE 1 CAPSULE BY MOUTH DAILY Patient wants to buy from Non-[place] pharmacy. OUTPT FOLIC ACID 1MG TAB (Status = Active) TAKE ONE TABLET BY MOUTH ONCE DAILY FOR ANEMIA FROM INADEQUATE FOLIC ACID VITAMIN/NUTRITION SUPPLEMENT Rx# [id number] Last Released: 09/15/23 Qty/Days Supply: Rx Expiration Date: 09/14/24 Refills Remainin Indication: FOR ANEMIA FROM INADEQUATE FOLIC ACID OUTPT GABAPENTIN 400MG CAP (Status = Discontinued) TAKE ONE CAPSULE BY MOUTH AT BEDTIME Rx# [id number] Last Released: 02/19/24 Qty/Days Supply: Rx Expiration Date: 02/17/25 Refills Remainin Indication: AUD OUTPT GABAPENTIN 400MG CAP (Status = Active) TAKE ONE CAPSULE BY MOUTH AT BEDTIME Rx# [id number] Last Released: 05/04/24 Qty/Days Supply: Rx Expiration Date: 04/06/25 Refills Remainin Indication: AUD Non-VA HOMA CAP/TAB TAKE DOSE UNKNOWN BY MOUTH ONCE DAILY Patient wants to buy from Non-VA pharmacy. OUTPT HYDROPHILIC (EQV AQUAPHOR) TOP OINT (Status = Active) APPLY LIBERAL AMOUNT TOPICALLY THREE TIMES DAILY NEEDED FOR DRY SKIN Rx# [id number] Last Released: 05/02/24 Qty/Days Supply: 454/30 Rx Expiration Date: 01/20/25 Refills Remainin Indication: FOR DRY SKIN OUTPT LISINOPRIL 10MG TAB (Status = Active) TAKE ONE TABLET BY MOUTH ONCE DAILY TO CONTROL BLOOD PRESSURE Rx# [id number] Last Released: 10/25/23 Qty/Days Supply: 90/ Rx Expiration Date: 09/14/24 Refills Remainin OUTPT LISINOPRIL 20MG TAB (Status = Active/Suspended) TAKE ONE TABLET BY MOUTH ONCE DAILY TO CONTROL BLOOD PRESSURE Rx# [id number] Last Released: 04/22/24 Qty/Days Supply: 90 Rx Expiration Date: 01/13/25 Refills Remainin Indication: FOR HIGH BLOOD PRESSURE Non-VA MULTIVITAMIN CAP/TAB TAKE ONE TABLET BY MOUTH ONCE DAILY Patient wants to buy from Non-[place] pharmacy. OUTPT MULTIVITAMIN/MINERALS CAP/TAB (Status = Active) TAKE ONE CAP/TAB BY MOUTH ONCE DAILY Rx# [id number] Last Released: 05/02/24 Qty/Days Supply: 100/90 Rx Expiration Date: 09/14/24 Refills Remainin Indication: FOR VITAMINS Non-VA OTHER CAP/TAB TAKE MEDIUM CHAIN TRIGLYCERIDES BY MOUTH ONCE DAILY Patient wants to buy from Non-VA pharmacy. Non-VA OTHER CAP/TAB TAKE PLANT PROTEIN BY MOUTH ONCE DAILY Patient wants to buy from Non-VA pharmacy. OUTPT THIAMINE 100MG TAB (Status = Active) TAKE TWO TABLETS BY MOUTH ONCE DAILY Rx# [id number] Last Released: 09/15/23 Qty/Days Supply: 200/90 Rx Expiration Date: 09/14/24 Refills Remainin Indication: SUPPLEMENT Non-VA ZINC 50MG (FROM SULFATE) CAP TAKE 1 CAPSULE BY MOUTH DAILY Patient wants to buy from Non-VA pharmacy. SUPPLIES /roberto VALVERDE DNP, FNP-C NURSE PRACTITIONER Signed: 06/01/2024 14:03 06/06/2024 ADDENDUM STATUS: COMPLETED * notified - See TeleNote 06/06/24 --- LAB SURGICAL PATHOLOGY Collected: 06/01/2024 13:00Acc:WENDY 150 Surgeon/Physician: GABY VALVERDE Specimen: SKIN,BACK Brief Clinical Hx: SKIN BIOPSY LEFT UPPER BACK 7mm HYPERPIGMENTED MACULE WITH IRREGULAR BORDERS Gross Description: The specimen is recieved from [facility] 25-[address] [facility] 4343;;1;Guanakito ESTRADA Received in formalin labeled with the [...] cross sections in cassette 2. RAPHAEL Rivas (ASCP) 06/02/2024 Microscopic Exam: Skin, left upper back: Malignant melanoma in [...] 06, 2024 at 8.30 AM. CPT codes 95220, 16682 /brenda/ GABY VALVERDE DNP, VANESSA-[place] NURSE PRACTITIONER Signed: 06/06/2024 11:39 GABY VALVERDE [facility]
--- OUTSIDE RECORDS SUMMARY | 2024-06-06 17:58 | XMS_ITS | Encounter Summary ---
Author Name [facility] [place] [facility] [place] Address [address] [place] [address] Care Team Providers Care Head Start Assistant Teacher Name Role Phone ARIANNE CHERY Primary Care [...] Relationship to Policy [facility] ORGANESPERANZA [facility] [employer] Aug 29, 2017 [id number] [facility] ORGANIZ COMMO NWEAL [facility] Mar 01, 2014 [id number] [phone] Kathy ESTRADA SPOUSE MEDICARE (WNR) MEDICARE (M) PART A Sep 29, 2020 PART A [id number] [place] ESTRADA PATIENT MEDICARE (WNR) MEDICARE (M) PART A Sep 29, 2020 PART A [id number] [facility] Guan[place]ito ESTRADA PATIENT Selected Encounter This section includes the information on record at [place] for the Encounter. Date/Time Encounter Type Encounter Description Reason Provider Source Jun 28, 2023 10:15 AM [facility] - IND ICD-10-CM F10.230 Alcohol dependence with withdrawal, uncomplicated AMAYA FRANZ E Encounter Template Text not used by [place] Assessments - Encounter Diagnoses This section includes the primary and secondary diagnoses documented for the Encounter. Date/Time Primary/Secondary Diagnosis Diagnosis Name Provider Source Jun 28, 2023 10:43 AM PRIMARY Alcohol dependence with withdrawal, uncomplicated AMAYA FRANZ [place] [facility] [place] [facility] Jun 28, 2023 10:43 AM SECONDARY Major depressive disorder, single episode, unspecified AMAYA FRANZ [place] [facility] [place] [facility] Plan of Treatment: Future Appointments (+ 6 months) and Future Tests (+/- 45 days) The Plan of Treatment section includes future care activities for the patient from all [place] treatmentfacilities. This section includes future appointments and future orders which are active, pending or scheduled. Future Appointments This section includes appointments that were scheduled to occur 6 months from the date of the Encounter, up to a maximum of 20 appointments. The data comes from all [place] treatment facilities. Appointment Date/Time Appointment Type Appointme nt Facility Name July 05, 2023 02:30 PM AMBULATORY - PSYCHIATRY [place] [facility] [place] [facility] July 07, 2023 09:15 AM AMBULATORY - MEDICINE [place] [facility] [place] [facility] July 12, 2023 01:00 PM AMBULATORY - PSYCHIATRY [facility] [place] [facility] July 16, 2023 03:00 PM AMBULATORY - PSYCHIATRY [facility] [place] [facility] July 23, 2023 03:30 PM AMBULATORY - PSYCHIATRY [facility] [place] [facility] Aug 13, 2023 03:30 PM AMBULATORY - PSYCHIATRY [facility] [place] [facility] Aug 16, 2023 11:00 AM AMBULATORY - MEDICINE [place] [facility] [facility] Aug 27, 2023 11:30 AM AMBULATORY - MEDICINE [place] [facility] [place] [facility] Sep 14, 2023 09:30 AM AMBULATORY - MEDICINE [place] [facility] [facility] Sep 17, 2023 03:30 PM AMBULATORY - PSYCHIATRY [facility] [place] [facility] Oct 05, 2023 01:00 PM AMBULATORY - MEDICINE [facility] [facility] Oct 14, 2023 02:00 PM AMBULATORY - NONE [facility] [place] [facility] Nov 12, 2023 03:30 PM AMBULATORY - PSYCHIATRY [facility] [place] [facility] Nov 25, 2023 07:30 AM AMBULATORY - REHAB MEDICIN E [facility] [place] [facility] Nov 25, 2023 08:30 AM AMBULATORY - PSYCHIATRY [facility] [place] [facility] Nov 25, 2023 11:00 AM AMBULATORY - MEDICINE [facility] Dec 03, 2023 07:30 AM AMBULATORY - REHAB MEDICIN E [facility] [place] [facility] Dec 09, 2023 08:15 AM AMBULATORY - REHAB MEDICIN E [facility] [place] [facility] Dec 15, 2023 01:00 PM AMBULATORY - REHAB MEDICIN E [facility] [place] [facility] Dec 24, 2023 03:00 PM AMBULATORY - PSYCHIATRY [facility] [place] [facility] Active, Pending, and Scheduled Orders This section includes a listing of several types of active, pending, and scheduled orders, including clinic medications orders, diagnostic test orders, procedure orders and consult orders; where the start date of the order is 45 days before the date of the Encounter or 45 days after the date of theEncounter. The data comes from all [place] treatment facilities. Test Date/Time Test Type Test Details Facility Name May 14, 2023 12:00 AM Laboratory - Chemi stry Order BASIC METABOLIC PANEL (fasting) BLOOD (SST-SERUM) [facility] May 14, 2023 12:00 AM Laboratory - Chemi stry Order LIPID PANEL FASTING BLOOD (SST-SERUM) [facility] May 14, 2023 12:00 AM Laboratory - Chemi stry Order LIVER FUNCTION BLOOD (SST-SERUM) [facility] May 14, 2023 12:00 AM Laboratory - Chemi stry Order HEMOGLOBIN A1C PANEL BLOOD (LAV-BLOOD) [facility] May 14, 2023 12:00 AM Laboratory - Chemi stry Order CBC AND DIFF (AUTO) BLOOD (LAV-BLOOD) [facility] May 14, 2023 12:00 AM Laboratory - Chemi stry Order TSH BLOOD (SST-SERUM) [facility] Aug 10, 2023 12:00 AM Laboratory - Chemi stry Order VITAMIN D (25-OH) BLOOD (SST-SERUM) [facility] Aug 10, 2023 12:00 AM Laboratory - Chemi stry Order MICROALBUMIN CREATININE RATIO PANEL URINE (RANDOM) [facility] Aug 10, 2023 12:00 AM Laboratory - Chemi stry Order BASIC METABOLIC PANEL (fasting) BLOOD (SST-SERUM) [facility] Aug 10, 2023 12:00 AM Laboratory - Chemi stry Order LIPID PANEL FASTING BLOOD (SST-SERUM) [facility] Aug 10, 2023 12:00 AM Laboratory - Chemi stry Order LIVER FUNCTION BLOOD (SST-SERUM) [facility] 11, 2024 12:00 AM Laboratory - Chemi stry Order HEMOGLOBIN A1C PANEL BLOOD (LAV-BLOOD) [facility] Aug 10, 2023 12:00 AM Laboratory - Chemi stry Order CBC AND DIFF (AUTO) BLOOD (LAV-BLOOD) [facility] Aug 10, 2023 12:00 AM Laboratory - Chemi stry Order TSH BLOOD (SST-SERUM) [facility] Lab Results: +/- 30 days of the encounter This section includes the Chemistry and Hematology Lab Results on record with [place] for the patient. Radiology Reports and Pathology Reports are provided separately, in subsequent sections. Lab Results This section contains the Chemistry/Hematology Results that were resulted 30 days before or 30 daysafter the date of the Encounter. Date/Time Source Result Type Result - Unit Interpretation Reference Range Comment Jun 24, 2023 06:[address] [facility]SA[facility] CargoSenseMCBRIDE ORTHOPEDIC HOSPITAL – OKLAHOMA CITYInstraGrok [facility] FOLATE (WROX) Specimen Type: SERUM No comment entered. Ordering Provider: REAGAN MÁRQUEZ Report Released Date/Time: Jun 23, 2023 11:15 AM Reporting Lab: [place] [employer] [facility] SoftwareSAINT MICHAEL[facility] [employer] [facility] [address] [facility] [facility] [address] Performing Lab: [facility] SoftwareSAINT MICHAEL[facility]S [facility] [employer] [facility] [address] [facility] [address] FOLATE (WROX) 17.13 ng/mL >5.2 Jun 24, 2023 06:38 AM [place] [employer] [facility]SA[facility] MIC[facility]EL[facility] [employer] [facility] HEMOGLOBIN A1C PANEL Specimen Type: BLOOD Comment: Values obtained from A1C measurements can vary. For atypical A1C assays, a reported value of 7.0 could actually be between 6.72 and 7.28 if measured by a reference method. A reported value of 9.0 could actually be between 8.73 and 9.27. Ref: http://www.ng sp.org/LUPEdaashlie a.asp Ordering Provider: REAGAN MÁRQUEZ Report Released Date/Time: Jun 23, 2023 11:15 AM Reporting Lab: [facility]OS[facility]ITALRFLOWERS HOSPITALTRN [facility] HOSPITALUSETS [facility] [address] [facility] [address] Performing Lab: [facility]DR[facility]S HOSPITALRL TRN [facility] HOSPITALUSETS [address] [address] HEMOGLOBIN A1C 5.3 4.0-5.6 Jun 24, 2023 06:38 AM [facility] HOSPITALRL [facility] HOSPITALUSETS [facility] TSH Specimen Type: SERUM No comment entered. Ordering Provider: REAGAN MÁRQUEZ Report Released Date/Time: Jun 23, 2023 11:15 AM Reporting Lab: [facility] HOSPITALRL TRN [facility] HOSPITALUSETS [address] [address] Performing Lab: [facility] HOS[facility]ITALRL TRN [facility]ITALUSETS [address] [address] TSH 2.11 u[IU]/mL 0.35-5.00 Jun 24, 2023 06:38 AM [facility] HOSPITALUSETS [facility] VITAMIN B12 Specimen Type: SERUM No comment entered. Ordering Provider: REAGAN MÁRQUEZ Report Released Date/Time: Jun 23, 2023 11:15 AM Reporting Lab: [facility] HOSPITALRL TRN [facility]ITALUSETS [address] [address] Performing Lab: [facility] HOSPITALRL TRN [facility]ITALUSETS [address] [address] VITAMIN B12 647 pg/mL 200-900 Jun 24, 2023 06:38 AM [facility] HOSPITALRRMC [facility]ITALN [facility] LIPID PANEL FASTING Specimen Type: SERUM No comment entered. Ordering Provider: REAGAN MÁRQUEZ Report Released Date/Time: Jun 23, 2023 11:15 AM Reporting Lab: [facility] HOSPITALRFLOWERS HOSPITALTRN [facility] HOSPITALUSETS [address] [address] Performing Lab: [facility] HOSPITALRFLOWERS HOSPITALTRN [facility] HOSPITALUSETS [address] [address] CHOLESTEROL 181 mg/dL TRIGLYCERIDE 180 mg/dL H 0-150 LDL calculated 106 mg/dL 0-129 CHOL/HDL 4.6 HDL CHOLESTEROL 39 mg/dL L 40-60 Jun 22, 2023 06:30 AM [facility] LIVER FUNCTION Specimen Type: SERUM No comment entered. Ordering Provider: DONA KIM Report Released Date/Time: Jun 21, 2023 06:07 PM Reporting Lab: [facility] [address] [facility] [address] Performing Lab: [address] [address] PROTEIN,TOTAL 7.3 g/dL 6.0-8.3 ALBUMIN 4.1 g/dL 3.5-5.0 ALKALINE PHOSPHATASE 80 U/L 40-150 AST 23 U/L 5-34 ALT 39 U/L BILIRUBIN, TOTAL 0.9 mg/dL 0.2-1.2 Jun 21, 2023 03:49 PM [facility] COVID-19 MONITOR PANEL (CEPHEID) Specimen Type: NASOPHARYNX Comment: This test is authorized for emergency use only. False negative results may occur if virus is present at levels below the analytical limit of detection.Neg ative results do not preclude SARS-CoV-2 infection and should not be used as the sole basis for treatment or other patient management decisions.Cep heid FLUVID: HCPs: https://www. [place].gov/media/ 584075/downlo ad. Patients: https://www. [place].gov/media/ 479708/downlo ad Ordering Provider: DIEGO MEJIAS Report Released Date/Time: Jun 21, 2023 03:18 PM Reporting Lab: [address] [address] Performing Lab: [address] [address] COVID-19 JARED (CEPHEID) NEGATIVE Negative Jun 21, 2023 03:29 PM [facility] ETHANOL Specimen Type: PLASMA No comment entered. Ordering Provider: DIEGO MEJIAS Report Released Date/Time: Jun 21, 2023 03:18 PM Reporting Lab: [facility] [address] [facility] [address] Performing Lab: [address] [address] ETHANOL <10 mg/dL Jun 21, 2023 03:29 PM [facility] LIVER FUNCTION Specimen Type: SERUM No comment entered. Ordering Provider: DIEGO MEJIAS Report Released Date/Time: Jun 21, 2023 03:18 PM Reporting Lab: [facility] [address] [address] Performing Lab: [address] [address] PROTEIN,TOTAL 8.1 g/dL 6.0-8.3 ALBUMIN 4.7 g/dL 3.5-5.0 ALKALINE PHOSPHATASE 83 U/L 40-150 AST 31 U/L 5-34 ALT 47 U/L BILIRUBIN, TOTAL 0.9 mg/dL 0.2-1.2 Jun 21, 2023 03:29 PM [facility] BASIC METABOLIC PANEL (non-fasting) Specimen Type: SERUM No comment entered. Ordering Provider: DIEGO MEJIAS Report Released Date/Time: Jun 21, 2023 03:18 PM Reporting Lab: [address] [address] Performing Lab: [address] [address] UREA NITROGEN 20 mg/dL 7-25 GLUCOSE 100 mg/dL 65-100 SODIUM 139 mmol/L 135-145 POTASSIUM 4.2 mmol/L 3.5-5.0 CHLORIDE 101 mmol/L 100-110 CO2 26 meq/L 20-30 CREATININE, Serum 0.85 mg/dL 0.50-1.40 eGFR(CKD-EPI 2020) >90 mL/min >60 Jun 21, 2023 03:29 PM [facility] DRUGS OF ABUSE Specimen Type: URINE [...] Jun 21, 2023 03:18 PM Reporting Lab: [address] [address] Performing Lab: [address] [address] AMPHETAMINES SCREEN NONE-DETECTED None-Detec josefina, Cutoff = [...] 3-1.02 0 Jun 21, 2023 03:29 PM [facility] CBC AND DIFF (AUTO) Specimen Type: BLOOD No comment entered. Ordering Provider: DIEGO MEJIAS Report Released Date/Time: Jun 21, 2023 03:18 PM Reporting Lab: [address] [address] Performing Lab: [address] [address] WBC 8.46 10*3/uL 4.50-11.00 RBC 5.43 10*6/uL 4.23-5.66 HGB 16.3 g/dL 12.8-17 HCT 47.5 39.2-50.4 MCV 87.5 fL 82-99 MCHC 34.3 g/dL 30.8-35.1 PLT 323 10*3/uL 140-360 RDW-CV 12.8 12.0-16.0 Sharp, Abs 0.80 10*3/uL 0.30-1.10 MCH 30.0 pg 26.2-32.6 Neut % 63.0 43.7-75.8 Lymph % 25.2 14.0-42.3 Sharp % 9.5 5.1-13.7 Eos % 1.1 0.4-6.8 [...] Height Weight Body Mass Index Source Jun 28, 2023 08:26 AM 97.4 63 110/75 16 96 [facility] Jun 28, 2023 06:07 AM 61 115/86 16 99 [facility] Advance Directives: All historical and current Section Date Range: From patient's date of to the date document was created. This section includes ALL of a patient's completed or amended [place] Advance and Rescinded Directives. The entries below indicate that a directive exists for the patient, but an actual copy is not included with this document. The data comes from all [place] facilities. Date Advance Directives Provider Source Jun 25, 2023 ADVANCE DIRECTIVE DISCUSSION AMAYA FRANZ [facility] Aug 06, 2017 ADVANCE ABDIRASHID [place] Encounter Notes: All associated encounter notes This section contains the clinical notes associated to the Encounter. Date/Time Encounter Note(s) Provider Source Jun 28, 2023 10:15 AM SUICIDE PREVENTION RISK ASSESSMENT SCREENING NOTE: LOCAL TITLE: SUICIDE RISK EVALUATION - COMPREHENSIVE STANDARD TITLE: SUICIDE PREVENTION RISK ASSESSMENT SCREENING NOT DATE OF NOTE: JUN 28, 2023@10:15 ENTRY DATE: JUN 28, 2023@10:16:47 AUTHOR: AMAYA FRANZ COSIGNER: URGENCY: STATUS: COMPLETED Comprehensive Suicide Risk Evaluation --------- This is an update to an existing suicide risk evaluation. The validity of the information contained within this evaluation is not in question. Suicidal Ideation The most recent thoughts of engaging in suicide-related behavior were within the past 30 days. The Veteren had thoughts of taking an overdose of his blood pressure pills when he was under the influence of alcohol prior to this admission. He denies intent to act on these thoughts. The did not have suicidal intent at the time of the most recent ideation. The had a suicide plan at the time of the most recent ideation. Describe: To overdose on his blood pressure pills. The most recent suicidal ideation was the most severe ideation within the last 30 days. The does have access to lethal means (firearms). Number of firearms and storage practice: All of his firearms are locked in a safe at his sons house. he does not know where the safe is nor have access to it. 8 gun locks were also provided to give the Veetran to give to his son. The does have access to other lethal means. Describe type and storage practices: Access to his medications. His will plan to get a lock box and the [place] will provide a weekly pill organizer so he will have access to only 1 week at a time. Suicidal Behavior The has not made any suicide attempts since the last [place] Comprehensive Suicide Risk Evaluation was completed. The did not report any prior preparatory behaviors that have not been previously documented. Warning Signs The following warning signs are currently present for the Wadsworth: Other warning signs not listed or comments: Comment: Newly in sobriety and limited [facility] supports. Will be connected at aftercare Additional past warning signs include: Risk Factors Recent psychosocial stressors Please Describe: escalation of alcohol use Access to lethal means Please Describe: will get a lock box and have weekly sullpy access only History of mental health hospitalization Please Describe: 2004 For a nervous breakdown. Psychological conditions or symptoms Please Describe: MDD, AUD Protective Factors and Reasons for Living Access to and engagement with health care Comment: Utilizes the [facility] Reports motivation for medical treatment Comment: Shows up to his appointmnets Access to and engagement with mental health care Comment: Utilizes the [facility] and has been set up for more services at Discharge Reports motivation for mental health treatment Comment: Shows up to his appointmnets Has meaningful family relationships Comment: , Son, Daughter and Grandkids Has a significant other Comment: is supportive Hope for the future Comment: yes Protective personal traits or beliefs Comment: Asks for help, Talks to God and says his prayers. Reports zoroastrian or spiritual beliefs/connections Comment: relationship to God is a support Social context support system Comment: Has friends that are a support Strong desire to live Comment: yes Clinical Impressions: The clinical impression of acute risk is Low ACUTE Risk. As evidenced by: Denies current SI, has family and friend supports, has aftercare appointmnets set up that he is motivated for. Plan in place to reduce access to more than 1 week of meds at a time. The clinical impression of chronic risk is Intermediate CHRONIC Risk. As evidenced by: Has a good plan and has had 8 years of sobriety in the past. Motivated to get sober again. Depression is an on going risk factor as is early sobriety. Suicide Risk Mitigation Plan: This treatment and care plan was developed in collaboration with the . Risk Mitigation Plan: Strategies for Managing Risk in OUTPATIENT setting Suicide Field Control Inspector was not alerted for consideration of a Patient Record Flag Category I High Risk for Suicide. Complete or update 's safety plan Provide lethal means safety counseling, including safe storage discussion A gun lock(s) was provided. Increase frequency of outpatient contact, including home visits for home-based care Indicate frequency: Aftercare appts scheduled Engage in interdisciplinary treatment and recovery planning Address psychosocial needs By: Aftercare appts set up to include individual therapy and groups [facility] Discuss with Wadsworth ways to increase social connections/social supports Involve family/support system in Wadsworth's care Connect Wadsworth with community outreach specialist Schedule for follow-up appointments Comment/Date: in chart Provide Wadsworth with phone number for Wadsworth's Crisis Line: Dial [phone] (Press 1), Text to [phone], or Chat Educate Wadsworth on emergency services Re-evaluation: Due to the dynamic nature of some warning signs, risk and protective factors, suicide risk should be routinely re-evaluated. These risk management strategies were chosen to address 's current presentation and feasible treatment options within the system of care. This plan should be re-evaluated over time. /brenda/ TETE ARIAS Cloud Systems Architect Signed: 06/28/2023 10:43 AMAYA FRANZ [place] [facility] Jun 28, 2023 10:15 AM SOCIAL WORK NOTE: LOCAL TITLE: SOCIAL WORK NOTE STANDARD TITLE: SOCIAL WORK NOTE DATE OF NOTE: JUN 28, 2023@10:15 ENTRY DATE: JUN 28, 2023@11:43:31 AUTHOR: AMAYA FRANZ EXP COSIGNER: URGENCY: STATUS: COMPLETED Wadsworth is a 67 year(s) old, MALE Wadsworth is currently MARITAL STATUS - Diagnoses: MDD; Alcohol Use Disorder, Severe Reason for admission: Alcohol detox [employer] FROM Dec TO Dec SEPTUM, NASAL, DEVIATION OF 0% SC IMPAIRED HEARING 0% SC TINNITUS 10% SC MAJOR DEPRESSIVE DISORDER 50% SC Provider(s): TETE [place] Duration: 30 min Patient Identifiers: X Visual Recognition Birthdate SS# X Patient Name Content:The Wadsworth met with the Cloud Systems Architect and to complete a CRSE. He denies current thoughts of SI. We discussed that I spoke to his 06/25/23 and recommended she get a lock box and we will send him with a weekly pill organizer to assist with him having less access to large quantities of medications. She was ok with this and he is ok with this. He was provided his DC note and appts, Safety Plan, copy of advance directive and community and [place] resources on Wednesday06/25/23 when we completed most of his DC. Risk: No acute risk Plan/Progress Towards Discharge: Treatment team will monitor for progress/stabilization on medications. Staff will continue to offer therapeutic support and monitor for safety. The is interested in individual therapy and a Relapse Prevention Group at the [facility] Discharge scheduuled for today, 06/28/23 at 12 noon. /brenda/ TETE ARIAS Cloud Systems Architect Signed: 06/28/2023 11:57 AMAYA FRANZ [place] [facility]
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
--- OUTSIDE RECORDS SUMMARY | 2024-06-06 17:58 | XMS_ITS | Encounter Summary ---
Author Name [facility] [place] [facility] [place] Address [address] [place] [address] Care Team Providers Care Disability Advocate Name Role Phone ARIANNE CHERY Primary Care [...] Name Patient's Relationship to Policy [facility] [employer] [facility] Aug 29, 2017 [id number] Kathy MURPHY [facility]GANIZ [facility] Mar 01, 2014 [id number] [phone] Kathy MURPHY SPOUSE MEDICARE (WNR) MEDICARE (M) PART A Sep 29, 2020 PART A [id number] [facility] [phone] Guanakito MURPHY PATIENT MEDICARE (WNR) MEDICARE (M) PART A Sep 29, 2020 PART A [id number] [phone] Guanakito MURPHY PATIENT Selected Encounter This section includes the information on record at [place] for the Encounter. Date/Time Encounter Type Encounter Description Reason Provider Source Jun 25, 2023 10:45 AM [facility] - IND ICD-10-CM F10.230 Alcohol dependence with withdrawal, uncomplicated AMAYA FRANZ E Encounter Template Text not used by [place] Assessments - Encounter Diagnoses This section includes the primary and secondary diagnoses documented for the Encounter. Date/Time Primary/Secondary Diagnosis Diagnosis Name Provider Source Jun 25, 2023 11:21 AM PRIMARY Alcohol dependence with withdrawal, uncomplicated OSEIAMAYA Haskins [place] [facility] [place] [facility] Jun 25, 2023 11:21 AM SECONDARY Major depressive disorder, single episode, unspecified AMAYA FRANZ [place] [facility] [place] [facility] Plan of Treatment: Future [...] 05, 2023 02:30 PM AMBULATORY - PSYCHIATRY [place] [facility] [place] [facility] July 07, 2023 09:15 AM AMBULATORY - MEDICINE [place] [facility] [place] [facility] July 12, 2023 01:00 PM AMBULATORY - PSYCHIATRY [facility] [place] [facility] July 16, 2023 03:00 PM AMBULATORY - PSYCHIATRY [facility] [place] [facility] July 23, 2023 03:30 PM AMBULATORY - PSYCHIATRY [facility] [place] [facility] Aug 13, 2023 03:30 PM AMBULATORY - PSYCHIATRY [facility] [place] [facility] Aug 16, 2023 11:00 AM AMBULATORY - MEDICINE [place] [facility] [place] [facility] Aug 27, 2023 11:30 AM AMBULATORY - MEDICINE [place] [facility] [place] [facility] Sep 14, 2023 09:30 AM AMBULATORY - MEDICINE [place] [facility] [place] [facility] Sep 17, 2023 03:30 PM AMBULATORY - PSYCHIATRY [facility] [place] [facility] Oct 05, 2023 01:00 PM AMBULATORY - MEDICINE [facility] [place] [facility] Oct 14, 2023 02:00 PM AMBULATORY - NONE [facility] [place] [facility] Nov 12, 2023 03:30 PM AMBULATORY - PSYCHIATRY [facility] [place] [facility] Nov 25, 2023 07:30 AM AMBULATORY - REHAB MEDICIN E [facility] [place] [facility] Nov 25, 2023 08:30 AM AMBULATORY - PSYCHIATRY [facility] [place] [facility] Nov 25, 2023 11:00 AM [facility]ULATORY - MEDICINE [facility] Dec 03, 2023 07:30 AM AMBULATORY - REHAB MEDICIN E [facility] [place] [facility] Dec 09, 2023 08:15 AM AMBULATORY - REHAB MEDICIN E [facility] [place] [facility] Dec 15, 2023 01:00 PM AMBULATORY - REHAB MEDICIN E [facility] [place] [facility] Dec 24, 2023 03:00 PM AMBULATORY - PSYCHIATRY [facility] [place] [facility] Active, Pending, and Scheduled Orders This section includes a listing of several types of active, pending, and scheduled orders, including clinic medications orders, diagnostic test orders, procedure orders and consult orders; where the start date of the order is 45 days before the date of the Encounter or 45 days after the date of theEncounter. The data comes from all [place] treatment facilities. Test Date/Time Test Type Test Details Facility Name May 14, 2023 12:00 AM Laboratory - Chemi stry Order BASIC METABOLIC PANEL (fasting) BLOOD (SST-SERUM) [facility] May 14, 2023 12:00 AM Laboratory - Chemi stry Order LIVER FUNCTION BLOOD (SST-SERUM) [facility] May 14, 2023 12:00 AM Laboratory - Chemi stry Order LIPID PANEL FASTING BLOOD (SST-SERUM) [facility] May 14, 2023 12:00 AM Laboratory - Chemi stry Order HEMOGLOBIN A1C PANEL BLOOD (LAV-BLOOD) [facility] May 14, 2023 12:00 AM Laboratory - Chemi stry Order TSH BLOOD (SST-SERUM) [facility] May 14, 2023 12:00 AM Laboratory - Chemi stry Order CBC AND DIFF (AUTO) BLOOD (LAV-BLOOD) [facility] Lab Results: +/- 30 days of the encounter This section includes the Chemistry and Hematology Lab Results on record with [place] for the patient. Radiology Reports and Pathology Reports are provided separately, in subsequent sections. Lab Results This section contains the Chemistry/Hematology Results that were resulted 30 days before or 30 daysafter the date of the Encounter. Date/Time Source Result Type Result - Unit Interpretation Reference Range Comment Jun 24, 2023 06:38 AM [facility] FOLATE (WROX) Specimen Type: SERUM No comment entered. Ordering Provider: REAGAN MÁRQUEZ Report Released Date/Time: Jun 23, 2023 11:15 AM Reporting [facility] [address] [facility] [address] Performing Lab: [facility] [address] [facility] [address] FOLATE (WROX) 17.13 ng/mL >5.2 Jun 24, 2023 06:38 AM [facility] HEMOGLOBIN A1C PANEL Specimen Type: BLOOD [...] Jun 23, 2023 11:15 AM Reporting Lab: [facility] [address] [facility] [address] Performing [facility] [address] [facility] [address] HEMOGLOBIN A1C 5.3 4.0-5.6 Jun 24, 2023 06:38 AM [facility] VITAMIN B12 Specimen Type: SERUM No comment entered. Ordering Provider: REAGAN MÁRQUEZ Report Released Date/Time: Jun 23, 2023 11:15 AM Reporting Lab: [facility] [address] [facility] [address] Performing Lab: [facility] [address] [facility] [address] VITAMIN B12 647 pg/mL 200-900 Jun 24, 2023 06:38 AM [facility] TSH Specimen Type: SERUM No comment entered. Ordering Provider: REAGAN MÁRQUEZ Report Released Date/Time: Jun 23, 2023 11:15 AM Reporting Lab: [facility] [address] [address] Performing Lab: [facility] [address] [address] TSH 2.11 u[IU]/mL 0.35-5.00 Jun 24, 2023 06:38 AM [facility] LIPID PANEL FASTING Specimen Type: SERUM No comment entered. Ordering Provider: REAGAN MÁRQUEZ Report Released Date/Time: Jun 23, 2023 11:15 AM Reporting Lab: [facility] [address] Performing Lab: [facility] [address] [address] CHOLESTEROL 181 mg/dL TRIGLYCERIDE 180 mg/dL H 0-150 LDL calculated 106 mg/dL 0-129 CHOL/HDL 4.6 HDL CHOLESTEROL 39 mg/dL L 40-60 Jun 22, 2023 06:30 AM [facility] LIVER FUNCTION Specimen Type: SERUM No comment entered. Ordering Provider: DONA KIM Report Released Date/Time: Jun 21, 2023 06:07 PM Reporting Lab: [facility] [address] [address] Performing Lab: [facility] [address] PROTEIN,TOTAL 7.3 g/dL 6.0-8.3 ALBUMIN 4.1 g/dL 3.5-5.0 ALKALINE PHOSPHATASE 80 U/L 40-150 AST 23 U/L 5-34 ALT 39 U/L BILIRUBIN, TOTAL 0.9 mg/dL 0.2-1.2 Jun 21, 2023 03:49 PM [facility] COVID-19 MONITOR PANEL (CEPHEID) Specimen Type: NASOPHARYNX Comment: This test is authorized for emergency use only. False negative results may occur if virus is present at levels below the analytical limit of detection.Neg ative results do not preclude SARS-CoV-2 infection and should not be used as the sole basis for treatment or other patient management decisions.Cep heid FLUVID: HCPs: https://www. da.gov/media/ 886236/downlo ad. Patients: https://www. da.gov/media/ 832052/downlo ad Ordering Provider: DIEGO MEJIAS Report Released Date/Time: Jun 21, 2023 03:18 PM Reporting Lab: [address] [address] Performing Lab: [address] [address] COVID-19 JARED (CEPHEID) NEGATIVE Negative Jun 21, 2023 03:29 PM [facility] ETHANOL Specimen Type: PLASMA No comment entered. Ordering Provider: DIEGO MEJIAS Report Released Date/Time: Jun 21, 2023 03:18 PM Reporting Lab: [address] [address] Performing Lab: [address] [address] ETHANOL <10 mg/dL Jun 21, 2023 03:29 PM [facility] LIVER FUNCTION Specimen Type: SERUM No comment entered. Ordering Provider: DIEGO MEJIAS Report Released Date/Time: Jun 21, 2023 03:18 PM Reporting Lab: [address] [address] Performing Lab: [address] [address] PROTEIN,TOTAL 8.1 g/dL 6.0-8.3 ALBUMIN 4.7 g/dL 3.5-5.0 ALKALINE PHOSPHATASE 83 U/L 40-150 AST 31 U/L 5-34 ALT 47 U/L BILIRUBIN, TOTAL 0.9 mg/dL 0.2-1.2 Jun 21, 2023 03:29 PM [facility] BASIC METABOLIC PANEL (non-fasting) Specimen Type: SERUM No comment entered. Ordering Provider: DIEGO MEJIAS Report Released Date/Time: Jun 21, 2023 03:18 PM Reporting Lab: [address] [address] Performing Lab: [address] [address] UREA NITROGEN 20 mg/dL 7-25 GLUCOSE 100 mg/dL 65-100 SODIUM 139 mmol/L 135-145 POTASSIUM 4.2 mmol/L 3.5-5.0 CHLORIDE 101 mmol/L 100-110 CO2 26 meq/L 20-30 CREATININE, Serum 0.85 mg/dL 0.50-1.40 eGFR(CKD-EPI 2020) >90 mL/min >60 Jun 21, 2023 03:29 PM [facility] DRUGS OF ABUSE Specimen Type: URINE [...] Jun 21, 2023 03:18 PM Reporting Lab: [address] [address] Performing Lab: [address] [address] AMPHETAMINES SCREEN NONE-DETECTED None-Detec josefina, Cutoff = [...] 3-1.02 0 Jun 21, 2023 03:29 PM [facility] CBC AND DIFF (AUTO) Specimen Type: BLOOD No comment entered. Ordering Provider: DIEGO MEJIAS Report Released Date/Time: Jun 21, 2023 03:18 PM Reporting Lab: [address] [address] Performing Lab: [address] [address] WBC 8.46 10*3/uL 4.50-11.00 RBC 5.43 10*6/uL 4.23-5.66 HGB 16.3 g/dL 12.8-17 HCT 47.5 39.2-50.4 MCV 87.5 fL 82-99 MCHC 34.3 g/dL 30.8-35.1 PLT 323 10*3/uL 140-360 RDW-CV 12.8 12.0-16.0 [place], Abs 0.80 10*3/uL 0.30-1.10 MCH 30.0 pg 26.2-32.6 Neut % 63.0 43.7-75.8 Lymph % 25.2 14.0-42.3 [place] % 9.5 5.1-13.7 Eos % 1.1 0.4-6.8 [...] Source Jun 25, 2023 09:23 PM 2 [facility] [place] [facility] Jun 25, 2023 08:42 PM 3 [facility] [place] [facility] Jun 25, 2023 07:30 PM 97.2 66 128/88 18 97 [facility] [place] [facility] Jun 25, 2023 12:01 PM 63 136/90 [facility] [place] [facility] Jun 25, 2023 08:40 AM 97.7 67 115/79 18 98 [place] [facility] [place] [facility] Advance Directives: All historical [...] 25, 2023 ADVANCE DIRECTIVE DISCUSSION AMAYA FRANZ [place] [facility] [place] [facility] Aug 06, 2017 ADVANCE DIRECTIVE ABDIRASHID [facility] Encounter Notes: All associated encounter notes This section contains the clinical notes associated to the Encounter. Date/Time Encounter Note(s) Provider Source Jun 25, 2023 04:23 PM ADDENDUM: LOCAL TITLE: Addendum STANDARD TITLE: ADDENDUM DATE OF NOTE: JUN 25, 2023@16:23:29 ENTRY DATE: JUN 25, 2023@16:23:30 AUTHOR: AMAYA FRANZ EXP COSIGNER: URGENCY: STATUS: COMPLETED The [employer] Operator Spoke with the 's , Huma Murphy. We discussed the recommendation for an extra safety measure to see if she was comfortable getting a lock box for his medications and having him have access to 1 week at a time. The Psychiatrist will send him home with a pill organizer. She is comfortable with this. We reviewed his aftercare plan and appointmnets as well. /brenda/ TETE ARIAS [facility] [employer]al Operator Signed: 06/25/2023 16:26 Receipt Acknowledged By: 06/25/2023 17:05 /es/ REAGAN MÁRQUEZ MD PSYCHIATRIST --- Original Document --- 06/25/23 SOCIAL WORK NOTE: is a 67 year(s) old, MALE [place] is currently MARITAL STATUS - Diagnoses: MDD; Alcohol Use Disorder, Severe Reason for admission: Alcohol detox [employer] FROM Dec TO Dec SEPTUM, NASAL, DEVIATION OF 0% SC IMPAIRED HEARING 0% SC TINNITUS 10% SC MAJOR DEPRESSIVE DISORDER 50% SC Provider(s): ETTE España Duration: 45 min Patient Identifiers: X Visual Recognition Birthdate SS# X Patient Name Content: The [place] met with the M[employer] Centrifugal Operator. He Completed his Discharge Paperwork: Reviewed his Advance Directive in his file and it is accurate, 2) Reviewed his Cover sheet and it is accurate, 3) Suicide Prevention Safety Plan completed and he has a copy, 4) Discharge Note and reviewed his appointmnets. His will pick him up at 12 noon on Wednesday06/28/23. We will complete his CRSE on Wednesday06/28/23 prior to his discharge. Risk: No acute risk Plan/Progress Towards Discharge: Treatment team will monitor for progress/stabilization on medications. Staff will continue to offer therapeutic support and monitor for safety. The is interested in individual therapy and a Relapse Prevention Group at the [facility]. His projected DC is 06/28/23. /brenda/ TETE ARIAS [facility] [facility] Cent[employer]al Operator Signed: 06/25/2023 13:19 06/25/2023 ADDENDUM STATUS: COMPLETED The was also given a list of access to support groups such as the AA 24 hr Zoom links, Local [facility] AA web site for meetings, and other peer support groups such as [employer] [facility] and [employer]. This included info on the [facility]. SAKINA showed the [place] the [facility] i[employer] web site on line and how to navigate it and the [facility] Web site. ASKINA gave the the list of Maame Espino Drop in Groups. /TETE Meeks [facility] [facility] Cent[employer]al Operator Signed: 06/25/2023 16:02 AMAYA FRANZ [place] [facility] [place] [facility] Jun 25, 2023 10:45 AM SUICIDE PREVENTION NOTE: LOCAL TITLE: SUICIDE PREVENTION SAFETY PLAN STANDARD TITLE: SUICIDE PREVENTION NOTE DATE OF NOTE: JUN 25, 2023@10:45 ENTRY DATE: JUN 25, 2023@10:53:55 AUTHOR: AMAYA FRANZ EXP COSIGNER: URGENCY: STATUS: COMPLETED SAFETY PLAN Please follow the steps described below on your Safety Plan. If you are experiencing a medical or mental health emergency, please call 911, at any time. If you are unable to reach your safety contacts or you are in crisis, please call the Veterans Crisis Line (Dial 98 then Press 1). Step 1: Triggers, Risk Factors and Warning Signs How will you know when you are in crisis and that the Safety Plan should be used? What are your personal red flags? 1. Under the influence of alcohol is the only time I wish I was not here and have thoughts of suicide. Using alcohol. 2. Frustration 3. isolation 4. 5. Step 2: Internal Coping Strategies What can you do, on your own, to help you stay safe and not act on your suicidal thoughts or urges in the future? What have you done in the past to stay safe? 1. Taking walks 2. Work with hands 3. Spend time with the kids 4. watch tv 5. play with or walk the dogs Step 3: Social Contacts Who May Distract from the Crisis Other than mental health providers and counselors, who can you contact who helps take your mind off your problems or helps you feel better? Name: Gokul: Natasha Phone number: in phone Name: Huma : Tom Phone number: [phone] What public places, groups, or social events help you feel better? Examples of social settings include community events, beaches, [place], coffee shops, malls, churches, clubs, 12 step meetings, aftercare groups, support groups, Veterans organizations, [facility] social events. 1. Emily with the dogs 2. Hope to connect with [place] groups and resources 3. 4. 5. 6. Step 4: Family Members or Friends Who May Offer Help Who are friends or family members who should be included in your plan? Name: : Huma Phone number: [phone] Name: in Law: Dharmesh Phone number: in phone Step 5: Professionals and Agencies to Contact for Help Who are the mental health professionals or professional peer supports who should be included in your plan? Please list the numbers you would call in the order you would call them. Name: [facility] Phone number: [phone] Name: [facility] [place] Phone number: [phone] Veterans Crisis Line: Dial 988 then Press 1 Veterans Crisis Line Text Messaging Service: 101164 Veterans Crisis Line: https://www.veteransIntelomedsis line.net/chat Call 911 in an emergency If you need to go to an urgent care center or emergency room, where will you go? Facility name: [facility] Facility address: [address] [place] [address] Facility phone number: [phone] [facility] site-specific emergency numbers: [place] [facility] [phone] Step 6: Making the Environment Safe Ways to make my environment safer and barriers I will use to protect myself from these potentially lethal means: Keep alcohol out of the house. [place] has access to firearms in their home or elsewhere: Yes [place] indicated firearms are stored the following way(s): Outside of my immediate home and property Comment: His guns are at his sons house in a safe and he does not have access to them. Firearm safe storage discussed with : Yes Gunlock offered to [place]: Yes and gunlock(s)provided has access to opioids: No These are the people who will help me protect myself from having access to dangerous items: Name: [place] Crisis Line/ or son Phone: in phone 's current, physical address: [address] [place], [place] [address] 's current phone number: [phone] Other Resources: - Virtual Hope Box smartphone application (create a hope box to remember good things in one's life) - Maketheconnection.net (source of -related resources and information) - Safety Plan in PTSD Manager [employer]: www.ptsd.va.gov/appvid/césar [place]/ptsdcoach_app.asp - Safety Plan in PTSD Manager [employer] Video: https://www.Gamgee.com/wa tch?v=MZf8nkswN1F I have received a copy of this Safety Plan. [place] does not have a family member/caregiver/friend to give copy of Safety Plan to. does not have a family member/caregiver/friend to participate in safety planning. /brenda/ TETE ARIAS [facility] [facility] Centrifugal Operator Signed: 06/25/2023 11:21 AMAYA FRANZ [facility] Jun 25, 2023 10:45 AM DISCHARGE NOTE: LOCAL TITLE: DISCHARGE NOTE STANDARD TITLE: DISCHARGE NOTE DATE OF NOTE: JUN 25, 2023@10:45 ENTRY DATE: JUN 25, 2023@12:58:24 AUTHOR: AMAYA FRANZ EXP COSIGNER: URGENCY: STATUS: COMPLETED TRANSFER/DISCHARGE CARE PLAN CHECKLIST: Reason for hospitalization: Alcohol Detox The confirms he/she will be returning to the following address/phone: [address] [place] [address] [facility]: [facility] ([id number]) The following follow-up appointments have been scheduled: Medical- 07/07/2023 09:15 [facility] 08/27/2023 11:30 NHM/OPTOMETRY/BORASKI 09/07/2023 14:30 CWM/SO/PACT 9 10/05/2023 13:00 CWM/SO/PACT 9 Mental Health- 07/05/2023 14:30 NHM/MHC/BALJINDER 07/12/2023 13:00 NHM/MHC/BALJINDER 07/16/2023 15:00 CWM/NO/MHC/EDWARDO 07/23/2023 15:30 NHM/MHC/BALJINDER Treatment plan completed: ( x) Yes, ( ) No Family/caregiver/support(s ) involved in treatment planning: (x ) Yes, ( ) No Advance Directive completed: ( ) Yes, (x ) No: The Advance Directive was already cmpleted and is in his cahrt. High Risk Suicide/Homicide risk assessment completed: (x) Yes, () No Suicide Safety Plan completed: ( x) Yes, ( ) No, ( ) N/A Discharge medications ordered by Attending Physician: ( x) Yes, ( ) No If no, reason: Discharge Instructions completed: ( x) Yes, ( ) No Arrangements made to obtain personal effects and funds: (x ) Yes, ( ) No, ( ) N/A Transportation arranged & discharge time set/communicated: (x ) Yes, ( ) No, ( ) N/A THE FOLLOWING LETTER WAS REVIEWED WITH AND PROVIDED TO UPON DISCHARGE: Upon continued stabilization and at your request, you are being discharged from inpatient care on this day. You have informed us of your plans to discharge and to resume outpatient services as needed. Below are upcoming appointment(s that have been arranged for you by the team. Please be sure to keep these appointments for your general well-being. In the event that you are unable to keep these appointments, please notify the provider in advance (numbers below). Appointments for follow-up: Medical- 07/07/2023 09:15 [facility] 08/27/2023 11:30 NHM/OPTOMETRY/BORASKI 09/07/2023 14:30 CWM/SO/PACT 9 10/05/2023 13:00 CWM/SO/PACT 9 Mental Health- 07/05/2023 14:30 NHM/MHC/BALJINDER 07/12/2023 13:00 NHM/MHC/BALJINDER 07/16/2023 15:00 CWM/NO/MHC/EDWARDO 07/23/2023 15:30 NHM/MHC/BALJINDER NOTE: The will be assessed at the [facility] and begin weekly groups there such as the Relapse Prevention Group. He was provided drop in group info as well and plans to attend the [facility] Peer Support Group and the Lucia crockett PTSD drop in Support Group. Your [place] Mental Health Ballistician is: Lashonda Acosta. This person is your primary point of contact at the [place] and can assist you with scheduling and rescheduling appointments, as well as discuss other concerns or questions you have regarding your treatment. Lashonda Acosta can be reached at [phone] Please recall that the [place]'s Crisis Line is available 24 hours, 7 days a week. The phone number is: [phone] [address] press 1 . [facility] [address] [place] [address] [facility] [address] [place] [address] [facility] [address] [place] [address] 7th Floor of [facility] ([facility]) [phone] [facility] [address] [place] [address] [facility] [address] [place] [address] [facility] [address] [place] [id number] We wish you well and please know that we remain available to you as needed. /brenda/ TETE ARIAS Melt House Centrifugal Operator Signed: 06/25/2023 13:07 Receipt Acknowledged By: 06/25/2023 16:22 /brenda/ Lashonda Acosta APRN STAFF CLINICAL NURSE SPECIALIST AMAYA FRANZ [place] [facility] Jun 25, 2023 10:45 AM ADVANCE DIRECTIVE DISCUSSION: LOCAL TITLE: ADVANCE DIRECTIVE DISCUSSION STANDARD TITLE: ADVANCE DIRECTIVE DISCUSSION DATE OF NOTE: JUN 25, 2023@10:45 ENTRY DATE: JUN 25, 2023@13:10 AUTHOR: AMAYA FRANZ EXP COSIGNER: URGENCY: STATUS: COMPLETED Advance Directive Screen AD: The patient's advance directive on file does not contain information about mental health treatment preferences. The had completed an Advance Directive on 08/06/2017. We reviewed it and his Health Care Proxy is accurate. He has identified his , Huma Murphy, as his Jason Care proxy. // TETE ARIAS M[employer] Centrifugal Operator Signed: 06/25/2023 13:15 AMAYA FRANZ [place] [facility] [place] [facility] Jun 25, 2023 10:45 AM SOCIAL WORK NOTE: LOCAL TITLE: SOCIAL WORK NOTE STANDARD TITLE: SOCIAL WORK NOTE DATE OF NOTE: JUN 25, 2023@10:45 ENTRY DATE: JUN 25, 2023@13:15:41 AUTHOR: AMAYA FRANZ EXP COSIGNER: URGENCY: STATUS: COMPLETED SOCIAL WORK NOTE Has ADDENDA is a 67 year(s) old, MALE is currently MARITAL STATUS - Diagnoses: MDD; Alcohol Use Disorder, Severe Reason for admission: Alcohol detox [employer] FROM Dec TO Dec SEPTUM, NASAL, DEVIATION OF 0% SC IMPAIRED HEARING 0% SC TINNITUS 10% SC MAJOR DEPRESSIVE DISORDER 50% SC Provider(s): TETE España Duration: 45 min Patient Identifiers: X Visual Recognition Birthdate SS# X Patient Name Content: The [place] met with the Melt House Centrifugal Operator. He Completed his Discharge Paperwork: Reviewed his Advance Directive in his file and it is accurate, 2) Reviewed his Cover sheet and it is accurate, 3) Suicide Prevention Safety Plan completed and he has a copy, 4) Discharge Note and reviewed his appointmnets. His will pick him up at 12 noon on Wednesday06/28/23. We will complete his CRSE on Wednesday06/28/23 prior to his discharge. Risk: No acute risk Plan/Progress Towards Discharge: Treatment team will monitor for progress/stabilization on medications. Staff will continue to offer therapeutic support and monitor for safety. The is interested in individual therapy and a Relapse Prevention Group at the [facility]. His projected DC is 06/28/23. /TETE Meeks Melt House Centrifugal Operator Signed: 06/25/2023 13:19 06/25/2023 ADDENDUM STATUS: COMPLETED The was also given a list of access to support groups such as the AA 24 hr Zoom links, Local [facility] AA web site for meetings, and other peer support groups such as [employer] Recovery and [employer] Recovery. This included info on the [facility]. SAKINA showed the [place] the [facility] web site on line and how to navigate it and the [facility] Web site. SAKINA gave the the list of Maame magali [address] Drop in Groups. /TETE Meeks Melt House Centrifugal Operator Signed: 06/25/2023 16:02 06/25/2023 ADDENDUM STATUS: COMPLETED The Melt House Centrifugal Operator Spoke with the 's , Huma Murphy. We discussed the recommendation for an extra safety measure to see if she was comfortable getting a lock box for his medications and having him have access to 1 week at a time. The Psychiatrist will send him home with a pill organizer. She is comfortable with this. We reviewed his aftercare plan and appointmnets as well. /TETE Meeks Melt House Centrifugal Operator Signed: 06/25/2023 16:26 Receipt Acknowledged By: * AWAITING SIGNATURE * REAGAN MÁRQUEZ DAWN N [facility]
--- OUTSIDE RECORDS SUMMARY | 2024-06-06 17:58 | XMS_ITS | Encounter Summary ---
Author Name [place] Address [address] [place] [address] Care Team Providers Care Section Housekeeper Name Role Phone JOSSELIN CHERY Primary Care [...] Name Patient's Relationship to Policy Rizvi [facility] CE ORGANESPERANZA [employer] Y Aug 29, 2017 [id number] Kathy ESTRADA [facility] ORGANIZ COMMO NWEAL [facility] Mar 01, 2014 [id number] [phone] Kathy ESTRADA SPOUSE MEDICARE (WNR) MEDICARE (M) PART A Sep 29, 2020 PART A [id number] [facility] Guanakito ESTRADA PATIENT MEDICARE (WNR) MEDICARE (M) PART A Sep 29, 2020 PART A [id number] Guanakito ESTRADA PATIENT Selected Encounter This section includes the information on record at [place] for the Encounter. Date/Time Encounter Type Encounter Description Reason Provider Source Jun 01, 2024 01:31 PM Outpatient Encounter DERMATOLOGY MARKO VALVERDE IHKathy Encounter Template Text not used by [place] Plan of Treatment: Future Appointments (+ 6 months) and Future Tests (+/- 45 days) The Plan of Treatment section includes future care activities for the patient from all [place] [facility]. This section includes future appointments and future orders which are active, pending or scheduled. Future Appointments This section includes appointments that were scheduled to occur 6 months from the date of the Encounter, up to a maximum of 20 appointments. The data comes from all [facility]. Appointment Date/Time Appointment Type Appointme nt Facility Name Jun 08, 2024 03:30 PM [facility] Jun 20, 2024 02:00 PM [facility] Aug 28, 2024 11:30 AM AMBULATORY - MEDIC[facility] Nov 28, 2024 04:00 PM AMBULATORY - MEDICINE [facility] Active, Pending, and Scheduled Orders This section includes a listing of several types of active, pending, and scheduled orders, including clinic medications orders, diagnostic test orders, procedure orders and consult orders; where the start date of the order is 45 days before the date of the Encounter or 45 days after the date of theEncounter. The data comes from all [facility]. Test Date/Time Test Type Test Details Facility Name May 03, 2024 12:00 AM Laboratory - Chemistry Order LIPID PANEL FASTING BLOOD (SST-SERUM) [facility] May 03, 2024 12:00 AM Laboratory - Chemistry Order CERULOPLASMIN BLOOD (SST-SERUM) [facility] May 03, 2024 12:00 AM Laboratory - Chemistry Order HEPATITIS C ANTIBODY (HCV)-[facility] BLOOD [facility] May 03, 2024 12:00 AM Laboratory - Chemistry Order HEPATITIS B SURFACE ANTIBODY (HBsAb)- BLOOD (SST-SERUM) [facility] May 03, 2024 12:00 AM Laboratory - Chemistry Order HEPATITIS B SURFACE ANTIGEN (HBsAg)- BLOOD (SST-SERUM) [facility] May 03, 2024 12:00 AM Laboratory - Chemistry Order FERRITIN BLOOD (SST-SERUM) [facility] May 03, 2024 12:00 AM Laboratory - Chemistry Order ALPHA 1 ANTITRYPSIN BLOOD (SST-SERUM) [facility] May 03, 2024 12:00 AM Laboratory - Chemistry Order LIVER FUNCTION BLOOD (SST-SERUM) [facility] May 03, 2024 12:00 AM Laboratory - Chemistry Order BASIC METABOLIC PANEL (non-fasting) BLOOD (SST-SERUM) [facility] May 03, 2024 12:00 AM Laboratory - Chemistry Order RODY SCREEN/TITER BLOOD (SST-GOLD) SERUM [facility] May 03, 2024 12:00 AM Laboratory - Chemistry Order IRON & TIBC PANEL BLOOD (SST-SERUM) [facility] May 03, 2024 12:00 AM Laboratory - Chemistry Order CBC AND DIFF (AUTO) BLOOD (LAV-BLOOD) [facility] May 03, 2024 12:00 AM Laboratory - Chemistry Order ALBUMIN BLOOD (SST-SERUM) [facility] May 03, 2024 12:00 AM Laboratory - Chemistry Order HEPATITIS A ANTIBODY (IGG) BLOOD (SST-SERUM) [facility] May 03, 2024 10:31 AM Laboratory - Chemistry Order PT & INR (PROTIME) BLOOD (BLUE-PLASMA) [facility] Jun 01, 2024 12:00 AM Laboratory - Chemistry Order SURGICAL PATH ORDER SURG PATH SPEC. UNKNOWN SP [facility] Jun 06, 2024 11:39 AM Consult Order SURGERY/CWM OUTPT Cons [facility] Advance Directives: All historical and current [...] ADVANCE DIRECTIVE DISCUSSION AMAYA FRANZ [facility] Aug 06, 2017 ADVANCE DIRECTIVE ABDIRASHID [facility] Radiology Reports: +/- 30 days of the [...] ULTRASOUND ABD WITH LIVER ELASTOGRAPHY: EMA ESTRADA [id number] -[id number] M Exm Date: MAY 18, 2024@08:30 Req Phys: JOSSELIN CHERY Loc: SPR SICK CALL TONGUE TRIMMER (Req'g Loc) Img Loc: ULTRASOUND Service: Unknown [place] [facility] [address] (Case [id number] COMPLETE) ULTRASOUND ABDOMEN LIMITED (US Detailed) CPT:43987 Reason for Study: fatty liver, ETOH (Case [id number] COMPLETE) ULTRASOUND ELASTOGRAPHY PARENCHYM(US Detailed) CPT:68301 Clinical History: Report Status: Verified Date Reported: MAY 18, 2024 Date Verified: MAY 18, 2024 Mottle Lay Up Operator E-Sig:/ES/MAVERICK SANCHEZ JR Report: Study: Abdominal ultrasound [...] is normal. No gallstones are identified. The medical tech reports a negative sonographic Carranza sign is present. No ascites is identified. Impression: No new focal liver abnormality with elastography values unchanged and which, in the absence of other known clinical signs, rules out compensated advanced chronic liver disease. If there are known clinical signs, may need further testing for confirmation. Primary Diagnostic Code: No immediate attention required Primary Interpreting Staff: AMVERICK SANCHEZ JR, Radiologist (Mottle Lay Up Operator) /MAVERICK DU JR [place] CNT [facility] Pathology Reports: +/- 30 days of [...] comes from all [place] treatment facilities. Date/Time Pathology Report Provider Source Jun 06, 2024 08:56 AM LR SURGICAL PATHOLOGY REPORT: LOCAL TITLE: LR SURGICAL PATHOLOGY REPORT STANDARD TITLE: PATHOLOGY DIAGNOSTIC STUDY REPORT DATE OF NOTE: JUN 06, 2024@08:56:18 ENTRY DATE: JUN 06, 2024@08:56:18 AUTHOR: MERVIN NGUYEN MD EXP COSIGNER: URGENCY: STATUS: COMPLETED $APHDR Reporting Lab: [place] [facility] [CLIA# [id number]] [address] [place] [id number] - - - - - - - [...] - - - PATHOLOGY REPORT Accession No. [facility] 150 - - - - - - - - - - - - - - - - - - - - - - - - - - - - - - - - - - - - - - - - Gross description: The specimen is recieved from [facility], [facility] [address] [facility] 2025;;1;Guanakito ESTRADA Received in formalin labeled with the [...] cross sections in cassette 2. RAPHAEL Rivas ([facility]) 06/02/2024 Skin, left upper back: Malignant [...] 06, 2024 at 8.30 AM. CPT codes 60064, 13448 /brenda/ MERVIN NGUYEN MD Board Certified Dermatopathologist Signed Jun 06, 2024@08:56 Performing Laboratory: Surgical Pathology Report Performed By: [facility] [CLIA# [id number]] [address] [place] [address] $FTR - - - - - - [...] - - EMA ESTRADA STANDARD FORM 515 ID:[id number] SEX:M :1955 AGE: 68 LOC:[facility] DERMATOLOGY TONGUE TRIMMER 1 PM PCP: Josselin Chery /brenda/ MERVIN NGUYEN MD Board Certified Dermatopathologist Signed: 06/06/2024 08:56 MERVIN NGUYEN MD [facility] Encounter Notes: All associated encounter notes This section contains the clinical notes associated to the Encounter. Date/Time Encounter Note(s) Provider Source Jun 01, 2024 01:31 PM MULTI SPECIALTY [place] OGRAM NOTE: LOCAL TITLE: STAFF IMAGE CAPTURE STANDARD TITLE: MULTI SPECIALTY PROGRAM NOTE DATE OF NOTE: JUN 01, 2024@13:31:21 ENTRY DATE: JUN 01, 2024@13:31:21 AUTHOR: GABY VALVERDE EXP COSIGNER: URGENCY: STATUS: COMPLETED Staff Image Capture Klaus Note ==== A clinical image was captured using the [place] Staff Image Capture iOS Klaus. The patient verbally consented to having this image captured and stored in the patient's electronic health record. This image can be viewed in [employer]. Comments about the image: L upper back Biopsy /es/ GABY VALVERDE DNP, CORPORATE LEGAL SECRETARY-C NURSE PRACTITIONER Signed: 06/01/2024 13:31 GABY VALVERDE [place] [facility]
--- OUTSIDE RECORDS SUMMARY | 2024-06-06 17:58 | XMS_ITS ---
Author Name [facility] [place] Organization [place] Address [address] [place] [id number] Care Team Providers Care Manager Valuation Name Role Phone ARIANNE CHERY Primary Care [...] Rizvi's Name Patient's Relationship to Policy Rizvi [facility] CE ORGANESPERANZA [employer] Aug 29, 2017 [id number] [phone] Kathy ESTRADA [facility] CE ORGANIZ COMMO NWEAL [facility] Mar 01, 2014 [id number] [phone] Kathy ESTRADA SPOUSE MEDICARE (WNR) MEDICARE (M) PART A Sep 29, 2020 PART A [id number] [facility] Guanakito ESTRADA PATIENT MEDICARE (WNR) MEDICARE (M) PART A Sep 29, 2020 PART A [id number] [facility] [phone] [id number] Guanakito ESTRADA PATIENT Selected Encounter This section includes the information on record at [place] for the Encounter. Date/Time Encounter Type Encounter Description Reason Provider Source Nov 25, 2023 08:30 AM OFFICE O/P EST MOD 30 MIN MENTAL HEALTH CLINIC - IND ICD-10-CM F32.9 Major depressive disorder, single episode, unspecified ROSALINE PATEL E Encounter Template Text not used by [place] Assessments - Encounter Diagnoses This section includes the primary and secondary diagnoses documented for the Encounter. Date/Time Primary/Secondary Diagnosis Diagnosis Name Provider Source Nov 25, 2023 09:13 AM PRIMARY Major depressive disorder, single episode, unspecified [facility] Nov 25, 2023 09:13 AM SECONDARY Alcohol dependence with withdrawal, uncomplicated GERMAIN PATEL IN [facility] Nov 25, 2023 09:13 AM SECONDARY Attn-defct hyperactivity disorder, predom inattentive type GERMAIN PATEL IN [facility] Plan of Treatment: Future Appointments (+ 6 months) and Future Tests (+/- 45 days) The Plan of Treatment section includes future care activities for the patient from all [place] [facility]. This section includes future appointments and future orders which are active, pending or scheduled. Future Appointments This section includes appointments that were scheduled to occur 6 months from the date of the Encounter, up to a maximum of 20 appointments. The data comes from all [place] treatment facilities. Appointment Date/Time Appointment Type Appointme nt Facility Name Dec 03, 2023 07:30 AM AMBULATORY - REHAB MEDICIN E [place] [facility] [place] [facility] Dec 09, 2023 08:15 AM AMBULATORY - REHAB MEDICIN E [place] [facility] [place] [facility] Dec 15, 2023 01:00 PM AMBULATORY - REHAB MEDICIN E [place] [facility] [place] [facility] Dec 24, 2023 03:00 PM [facility] [place] [facility] Dec 31, 2023 02:30 PM AMBULATORY - REHAB MEDICIN E [place] [facility] [place] [facility] Jan 17, 2024 08:30 AM AMBULATORY - [facility]INE [facility] Jan 17, 2024 09:45 AM AMBULATORY - MEDICINE [place] C [facility] [place] [facility] Feb 17, 2024 03:30 PM AMBULATORY - PSYCHIATRY [place] [facility] [place] [facility] Mar 23, 2024 08:00 AM AMBULATORY - [facility] Apr 04, 2024 09:30 AM AMBULATORY - REHAB MEDICIN E [facility] [place] [facility] Apr 05, 2024 03:30 PM AMBULATORY - PSYCHIATRY [place] [facility] [place] [facility] May 03, 2024 10:00 AM AMBULATORY - MEDICINE [place] May 18, 2024 08:30 AM [facility] Advance Directives: All historical and current Section [...] 2023 ADVANCE DIRECTIVE DISCUSSION AMAYA FRANZ [place] [facility] Aug 06, 2017 ADVANCE DIRECTIVE ABDIRASHID [facility] Encounter Notes: All associated encounter notes This section contains the clinical notes associated to the Encounter. Date/Time Encounter Note(s) Provider Source Nov 25, 2023 08:52 AM ACCOUNTING OF DISC LOSURES NOTE: LOCAL TITLE: STATE PRESCRIPTION DRUG MONITORING PROGRAM STANDARD TITLE: ACCOUNTING OF DISCLOSURES NOTE DATE OF NOTE: NOV 25, 2023@08:52:21 ENTRY DATE: NOV 25, 2023@08:52:21 AUTHOR: ARUN PATEL EXP COSIGNER: URGENCY: STATUS: COMPLETED This PDMP query was submitted by Arun Patel. The clinical justification for this PDMP query is to review controlled substances prescribed outside of the [facility], and any additional information that may become available, as an important component of standard clinical care, and in accordance with [facility] policy. Patient information was shared with the PDMP [place]riss [place]. No prescription(s) for controlled substances outside the [facility] were found in the last 90 days. /brenda/ ARUN PATEL Psychiatric Mental Health Nurse Practitioner Signed: 11/25/2023 08:52 [facility]UN PATEL [facility] Nov 25, 2023 08:29 AM PRIMARY CARE NURSE PRACTITIONER OUTPATIENT NOTE: LOCAL TITLE: NURSE PRACTITIONER OUTPATIENT NOTE STANDARD TITLE: PRIMARY CARE NURSE PRACTITIONER OUTPATIENT NOTE DATE OF NOTE: NOV 25, 2023@08:29 ENTRY DATE: NOV 25, 2023@08:29:56 AUTHOR: ARUN PTAELER: URGENCY: STATUS: COMPLETED OUTPATIENT MENTAL HEALTH CLINIC: FOLLOW-UP HPI: EMA ESTRADA, a 67 y/o male previously diagnosed with Major depressive disorder, Attention deficit hyperactivity disorder and Alcohol Use Disorder [place] [facility] [place]. Last seen by This Provider on 09/17/23 I just need to get rid of this neck pain. Had his first PT therapy today Rash on left forearm which he attributes to Eliquis Scheduled for an ablation in December Metoprolol was discontinued because of sedation Regularly monitors BP. Usually close to 120/80 I'm in a good mood most of the time but I've got the jitters which he attributes to increase in bupropion. Denies depression and feels that ADHD symptoms are mild and tolerable. With regards to ETOH no use in interim since last appointment. I get an urge every once in awhile but cravings are infrequent, mild and transient at present. Discussed acamprosate possibly being unavailable until April, and alternatives. [place] confirmed that he's derived significant benefit from acamprosate and that he wishes to continue with this medication. Sleep is alright. I'll get up once or twice to go to the bathroom. Anxiety can be an issue sometimes at work but is transient. 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 FOLIC ACID VITAMIN/NUTRITION SUPPLEMENT 6) FUROSEMIDE 20MG TAB TAKE ONE-HALF TABLET BY MOUTH ACTIVE ONCE DAILY TO REMOVE FLUID/CONTROL BLOOD PRESSURE PLEASE DO LABS IN ONE WEEK 7) LISINOPRIL 10MG TAB TAKE ONE TABLET BY MOUTH ONCE ACTIVE DAILY TO CONTROL BLOOD PRESSURE 8) MULTIVITAMIN/MINERALS CAP/TAB TAKE ONE CAP/TAB BY ACTIVE MOUTH ONCE DAILY 9) POTASSIUM CHLORIDE 10MEQ SA TAB TAKE ONE TABLET BY ACTIVE MOUTH ONCE DAILY WHILE ON FUROSEMIDE 10) THIAMINE 100MG TAB TAKE TWO TABLETS BY [...] BY MOUTH ACTIVE DAILY 17 Total Medications LABS AND STUDIES: REVIEWED IN [...] with significant therapeutic benefit and denies side effects aside from mild 'jitteriness' from bupropion. Reports desire to continue with current pharmacotherapy regimen. Discussed several alternatives to acamprosate including This provider calling an order into a non-VA pharmacy ( expressed concerns about paying out of pocket), naltrexone (side effects with previous trial), topiramate and gabapentin and the relative pros and cons of these options. Greenfield expressed preference for gabapentin and was informed that it is being used off label for AUD until acamprosate is back in stock. Informed not to start this medication until he runs out of current acamprosate because of similar mechanism of action. Greenfield informed of side effects of gabapentin including Somnolence, Sedation, Dizziness, Fatigue and respiratory depression. Increased fall risk. Can also impair coordination and reaction time; advised not to use while driving or operating machinery. Also advised Greenfield of risk for dependence and advised not to combine with other HYDROMETER CALIBRATOR depressants Recommended AA meetings but declined. Also declined Consult for group or individual therapy Consult No acute safety concerns Diagnosis: Attention deficit [...] BACK IN STOCK) Labs: none today Follow-Up: 12/24/23 Discussed risks and benefits of proposed medication treatments including FDA approved indications and off-label uses, as well as common and severe side effects. comprehended all information discussed, had opportunity to ask questions which were answered to their satisfaction, and voluntarily and without duress agreed to trial as documented. CONTACT AND CRISIS INFO: Greenfield informed that This Provider can be contacted at , [phone] or via Secure Messaging. We have reviewed the Crisis Hotline (187, dial #1 for line), and the has been instructed to call 911 or [...] court of law and presented to a envelope machine adjuster), and DOD access for active-duty service members. [...] with a VA or non-VA provider. /brenda/ ARUN PATEL Psychiatric Mental Health Nurse Practitioner Signed: 11/25/2023 09:12 ARUN PATEL [place] [facility]
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
--- OUTSIDE RECORDS SUMMARY | 2024-06-06 17:58 | XMS_ITS | Encounter Summary ---
Author Name [facility] [place] [facility] [place] Address [address] [place] [id number] Care Team Providers Care Assistant Purchasing Manager Name Role Phone ARIANNE CHERY Primary [...] Rizvi's Name Patient's Relationship to Policy Rizvi [facility] [employer] Aug 29, 2017 [id number] [phone] Kathy ESTRADA [facility] COMMO [facility] Mar 01, 2014 [id number] [phone] Kathy ESTRADA SPOUSE MEDICARE (WNR) MEDICARE (M) PART A Sep 29, 2020 PART A [id number] [facility] Guanakito ESTRADA PATIENT MEDICARE (WNR) MEDICARE (M) PART A Sep 29, 2020 PART A [id number] [facility] [phone] Guan[place]ito ESTRADA PATIENT Selected Encounter This section includes the information on record at [place] for the Encounter. Date/Time Encounter Type Encounter Description Reason Provider Source July 16, 2023 03:00 PM OFFICE O/P EST HI 40 MIN [facility] - IND ICD-10-CM F32.9 Major depressive disorder, single episode, unspecified ROSALINE BROOKE E Encounter Template Text not used by [place] Assessments - Encounter Diagnoses This section includes the primary and secondary diagnoses documented for the Encounter. Date/Time Primary/Secondary Diagnosis Diagnosis Name Provider Source July 21, 2023 09:24 AM PRIMARY Major depressive disorder, single episode, unspecified [facility] July 21, 2023 09:24 AM SECONDARY Alcohol dependence with withdrawal, uncomplicated GERMAIN BROOKE IN [facility] July 21, 2023 09:24 AM SECONDARY Attn-defct hyperactivity disorder, predom inattentive type [facility] Plan of Treatment: Future Appointments (+ 6 months) and Future Tests (+/- 45 days) The Plan of Treatment section includes future care activities for the patient from all [place] treatmentfauc medical center. This section includes future appointments and future orders which are active, pending or scheduled. Future Appointments This section includes appointments that were scheduled to occur 6 months from the date of the Encounter, up to a maximum of 20 appointments. The data comes from all [place] treatment facilities. Appointment Date/Time Appointment Type Appointme nt Facility Name July 23, 2023 03:30 PM AMBULATORY - [place]ATRY [place] [facility] Aug 13, 2023 03:30 PM AMBULATORY - [place]IATRY [place] [facility] Aug 16, 2023 11:00 AM AMBULATORY - MEDICINE [place] [facility] Aug 27, 2023 11:30 AM AMBULATORY - MEDICINE [place] [facility] Sep 14, 2023 09:30 AM AMBULATORY - MEDICINE [place] [facility] Sep 17, 2023 03:30 PM AMBULATORY - [place]IATRY [place] [facility] Oct 05, 2023 01:00 PM AMBULATORY - MEDICINE [place] [facility] Oct 14, 2023 02:00 PM AMBULATORY - NONE [place] [facility] Nov 12, 2023 03:30 PM AMBUL[facility]ORY - [facility]ATRY [facility] Nov 25, 2023 07:30 AM AMBULATORY - REHAB MEDICIN E [facility] Nov 25, 2023 08:30 AM AMBULATORY - PS[facility]CHIATRY [facility] Nov 25, 2023 11:00 AM AMBULATORY - MEDICINE [facility] Dec 03, 2023 07:30 AM AMBULATORY - REHAB MEDICIN E [facility] Dec 09, 2023 08:15 AM AMBULATORY - REHAB MEDICIN E [facility] Dec 15, 2023 01:00 PM AMBULATORY - REHAB MEDICIN E [facility] Dec 24, 2023 03:00 PM AMBULATORY - PSYCHIATRY [facility] Dec 31, 2023 02:30 PM AMBULATORY - REHAB MEDICIN E [facility] Active, Pending, and Scheduled Orders This section includes a listing of several types of active, pending, and scheduled orders, including clinic medications orders, diagnostic test orders, procedure orders and consult orders; where the start date of the order is 45 days before the date of the Encounter or 45 days after the date of theEncounter. The data comes from all [place] treatment facilities. Test Date/Time Test Type Test Details Facility Name Aug 10, 2023 12:00 AM Laboratory - Chemi stry Order VITAMIN D (25-OH) BLOOD (SST-SERUM) [facility] Aug 10, 2023 12:00 AM Laboratory - Chemi stry Order MICROALBUMIN CREATININE RATIO PANEL URINE (RANDOM) [facility] Aug 10, 2023 12:00 AM Laboratory - Chemi stry Order BASIC METABOLIC PANEL (fasting) BLOOD (SST-SERUM) [facility] Aug 10, 2023 12:00 AM Laboratory - Chemi stry Order LIPID PANEL FASTING BLOOD (SST-SERUM) [facility] Aug 10, 2023 12:00 AM Laboratory - Chemi stry Order LIVER FUNCTION BLOOD (SST-SERUM) [facility] Aug 10, 2023 12:00 AM Laboratory - Chemi stry Order HEMOGLOBIN A1C PANEL BLOOD (LAV-BLOOD) [facility] Aug 10, 2023 12:00 AM Laboratory - Chemi stry Order CBC AND DIFF (AUTO) BLOOD (LAV-BLOOD) [facility] Aug 10, 2023 12:00 AM Laboratory - Chemi stry Order TSH BLOOD (SST-SERUM) [facility] Lab Results: +/- 30 days of the encounter This section includes the Chemistry and Hematology Lab Results on record with [place] for the patient. Radiology Reports and Pathology Reports are provided separately, in subsequent sections. Lab Results This section contains the Chemistry/Hematology Results that were resulted 30 days before or 30 daysafter the date of the Encounter. Date/Time Source Result Type Result - Unit Interpretation Reference Range Comment Jun 24, 2023 06:38 AM [facility] FOLATE (WROX) Specimen Type: SERUM No comment entered. Ordering Provider: REAGAN MÁRQUEZ Report Released Date/Time: Jun 23, 2023 11:15 AM Reporting Lab: [facility] [address] [address] Performing Lab: [facility] [address] [address] FOLATE (WROX) 17.13 ng/mL >5.2 Jun 24, 2023 06:38 AM [facility] HEMOGLOBIN A1C PANEL Specimen Type: BLOOD [...] Jun 23, 2023 11:15 AM Reporting Lab: [facility] [address] [address] Performing Lab: [address] [address] HEMOGLOBIN A1C 5.3 4.0-5.6 Jun 24, 2023 06:38 AM [facility] TSH Specimen Type: SERUM No comment entered. Ordering Provider: REAGAN MÁRQUEZ Report Released Date/Time: Jun 23, 2023 11:15 AM Reporting Lab: [facility] [address] [address] Performing Lab: [place] [facility] [address] [facility] [address] TSH 2.11 u[IU]/mL 0.35-5.00 Jun 24, 2023 06:38 AM [facility] VITAMIN B12 Specimen Type: SERUM No comment entered. Ordering Provider: REAGAN MÁRQUEZ Report Released Date/Time: Jun 23, 2023 11:15 AM Reporting Lab: [facility] [address] [facility] [address] Performing Lab: [facility] [address] [address] VITAMIN B12 647 pg/mL 200-900 Jun 24, 2023 06:38 AM [facility] LIPID PANEL FASTING Specimen Type: SERUM No comment entered. Ordering Provider: REAGAN MÁRQUEZ Report Released Date/Time: Jun 23, 2023 11:15 AM Reporting Lab: [facility] [address] [facility] [address] Performing Lab: [facility] [address] [address] CHOLESTEROL 181 mg/dL TRIGLYCERIDE 180 mg/dL H 0-150 LDL calculated 106 mg/dL 0-129 CHOL/HDL 4.6 HDL CHOLESTEROL 39 mg/dL L 40-60 Jun 22, 2023 06:30 AM [facility] LIVER FUNCTION Specimen Type: SERUM No comment entered. Ordering Provider: DONA KIM Report Released Date/Time: Jun 21, 2023 06:07 PM Reporting Lab: [facility] [address] [address] Performing Lab: [facility] [address] [address] PROTEIN,TOTAL 7.3 g/dL 6.0-8.3 ALBUMIN 4.1 g/dL 3.5-5.0 ALKALINE PHOSPHATASE 80 U/L 40-150 AST 23 U/L 5-34 ALT 39 U/L BILIRUBIN, TOTAL 0.9 mg/dL 0.2-1.2 Jun 21, 2023 03:49 PM [facility] COVID-19 MONITOR PANEL (CEPHEID) Specimen Type: NASOPHARYNX Comment: This test is authorized for emergency use only. False negative results may occur if virus is present at levels below the analytical limit of detection.Neg ative results do not preclude SARS-CoV-2 infection and should not be used as the sole basis for treatment or other patient management decisions.Cep heid FLUVID: HCPs: https://www.g4interactive [place].gov/media/ 555294/downlo ad. Patients: https://www.Dormzy.gov/media/ 245884/downlo ad Ordering Provider: DIEGO MEJIAS Report Released Date/Time: Jun 21, 2023 03:18 PM Reporting Lab: [address] [address] Performing Lab: [address] [address] COVID-19 JARED (CEPHEID) NEGATIVE Negative Jun 21, 2023 03:29 PM [facility] ETHANOL Specimen Type: PLASMA No comment entered. Ordering Provider: DIEGO MEJIAS Report Released Date/Time: Jun 21, 2023 03:18 PM Reporting Lab: [facility] [address] [address] Performing Lab: [facility] [address] ETHANOL <10 mg/dL Jun 21, 2023 03:29 PM [facility] LIVER FUNCTION Specimen Type: SERUM No comment entered. Ordering Provider: DIEGO MEJIAS Report Released Date/Time: Jun 21, 2023 03:18 PM Reporting Lab: [facility] [address] [address] Performing Lab: [address] [address] PROTEIN,TOTAL 8.1 g/dL 6.0-8.3 ALBUMIN 4.7 g/dL 3.5-5.0 ALKALINE PHOSPHATASE 83 U/L 40-150 AST 31 U/L 5-34 ALT 47 U/L BILIRUBIN, TOTAL 0.9 mg/dL 0.2-1.2 Jun 21, 2023 03:29 PM [facility] BASIC METABOLIC PANEL (non-fasting) Specimen Type: SERUM No comment entered. Ordering Provider: DIEGO MEJIAS Report Released Date/Time: Jun 21, 2023 03:18 PM Reporting Lab: [address] [address] Performing Lab: [address] [address] UREA NITROGEN 20 mg/dL 7-25 GLUCOSE 100 mg/dL 65-100 SODIUM 139 mmol/L 135-145 POTASSIUM 4.2 mmol/L 3.5-5.0 CHLORIDE 101 mmol/L 100-110 CO2 26 meq/L 20-30 CREATININE, Serum 0.85 mg/dL 0.50-1.40 eGFR(CKD-EPI 2020) >90 mL/min >60 Jun 21, 2023 03:29 PM [facility] DRUGS OF ABUSE Specimen Type: URINE [...] Jun 21, 2023 03:18 PM Reporting Lab: [address] [address] Performing Lab: [address] [address] AMPHETAMINES SCREEN NONE-DETECTED None-Detec josefina, Cutoff = [...] 3-1.02 0 Jun 21, 2023 03:29 PM [facility] CBC AND DIFF (AUTO) Specimen Type: BLOOD No comment entered. Ordering Provider: DIEGO MEJIAS Report Released Date/Time: Jun 21, 2023 03:18 PM Reporting Lab: [facility] [address] [facility] [address] Performing Lab: [address] [address] WBC 8.46 10*3/uL 4.50-11.00 RBC 5.43 10*6/uL 4.23-5.66 HGB 16.3 g/dL 12.8-17 HCT 47.5 39.2-50.4 MCV 87.5 fL 82-99 MCHC 34.3 g/dL 30.8-35.1 PLT 323 10*3/uL 140-360 RDW-CV 12.8 12.0-16.0 Charlton, Abs 0.80 10*3/uL 0.30-1.10 MCH 30.0 pg 26.2-32.6 Neut % 63.0 43.7-75.8 Lymph % 25.2 14.0-42.3 Charlton % 9.5 5.1-13.7 Eos % 1.1 0.4-6.8 [...] ALL of a patient's completed or amended [place] Advance and Rescinded Directives. The entries below indicate that a directive exists for the patient, but an actual copy is not included with this document. The data comes from all [place] facilities. Date Advance Directives Provider Source Jun 25, 2023 ADVANCE DIRECTIVE DISCUSSION AMAYA FRANZ [place] [facility] Aug 06, 2017 ADVANCE DIRECTIVE ABDIRASHID [place] [employer] Encounter Notes: All associated encounter notes This section contains the clinical notes associated to the Encounter. Date/Time Encounter Note(s) Provider Source July 16, 2023 03:19 PM MENTAL HEALTH CONS ULT: LOCAL TITLE: MENTAL HEALTH CONSULT NOTE STANDARD TITLE: MENTAL HEALTH CONSULT DATE OF NOTE: JULY 16, 2023@15:19 ENTRY DATE: JULY 16, 2023@15:19:50 AUTHOR: LEXI BROOKE COSIGNER: URGENCY: STATUS: COMPLETED OUTPATIENT MENTAL HEALTH CLINIC: INITIAL ASSESSMENT HPI: EMA ESTRADA MENDY, a 67 y/o male [place] previously diagnosed with Major depressive disorder, Attention deficit hyperactivity disorder and Alcohol Use Disorder presents for Initial Assessment following discharge from acute Inpatient hospitalization reports I feel tired. Don't have the same spark I used to have. Nonetheless, adds that symptoms of depression have gradually been reducing in severity as long as I'm not drinking and estimates severity of depressive symptoms as being a 1 or a 2 out of 10 (with 10 being the worst). Bupropion has been very helpful. Wow, it feels like I lost a thousand pounds off of my shoulders. Denies side effects. Adds that ACAMPROSATE is fantastic. I don't even think about drinking and reiterates that he has not experienced any cravings since discharge and maintains that he never misses one of his thrice daily doses. Last drink was Three weeks ago this past Wednesday. Not interested in AA or mutual support groups. Also denies any significant symptoms of anxiety Not any more. Now that the alcohol's out of my system and sleep has been pretty good lately. Only get up once per night to use the bathroom. Sleeps 7-8 hours per night. With regards to ADHD symptoms I bounce around. Doesn't interfere with work but does make it more difficult. Wants to wait before reinitiating ADDERALL or an alternative given cardiac concerns. endorses that ADHD symptoms were evident during childhood and that he was rambunctious. They couldn't hog tie me for nothing. I was just always 'Go, go, go.' Claims that misunderstood a hand gesture as indicating suicidal ideation and that it resulted in his hospitalization. Does acknowledge increased ETOH intake in run-up to hospitalization, increased depression iso recent medical concerns and acknowledges passive SI of ( not wanting to be around ) but minimizes any active SI, intent or plan. Further minimizes SI in run-up to hospitalization by saying that mood symptoms were caused by alcohol and that those have receded with discontinuation to the latter. Denies auditory or visual hallucinations, paranoia or delusions. [place] explicitly and convincingly denied SI, intent or plan and denied thoughts of harming others. 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 MEDICAL HISTORY: Active Problem Alcohol dependence F10.230 [...] Remote Allergy/ADR Data available for this patient [place] [facility] [facility] No Known Allergies [...] 7 DAYS; MAX USE 12 MONTHS 6) FOLIC ACID 1MG TAB TAKE ONE TABLET BY MOUTH ONCE ACTIVE DAILY VITAMIN/NUTRITION SUPPLEMENT 7) LISINOPRIL 10MG TAB TAKE ONE TABLET BY MOUTH ONCE ACTIVE (S) DAILY TO CONTROL BLOOD PRESSURE 8) MED ORGANIZER 7DAY/4 SLOT APEX#[id number] USE 1 ORGANIZER ACTIVE DIRECTED NEEDED 9) METOPROLOL SUCCINATE 50MG SA TAB TAKE ONE TABLET BY ACTIVE MOUTH AT BEDTIME FOR HIGH BLOOD PRESSURE (NOTE DOSE) 10) MOISTURIZING LOTION APPLY LIBERAL AMOUNT TOPICALLY ACTIVE ONCE DAILY NEEDED FOR DRY SKIN 11) MULTIVITAMIN/MINERALS CAP/TAB TAKE ONE CAP/TAB BY ACTIVE MOUTH ONCE DAILY 12) NALOXONE HCL 4MG/SPRAY SOLN NASAL SPRAY INSTILL 1 ACTIVE SPRAY ONE NOSTRIL ONE TIME NEEDED CALL 911 WITH ADMINISTRATION. REPEAT WITH SECOND DEVICE IF SYMPTOMS RETURN 13) SUNSCREEN 30-50/AVOBENZONE/PABA-F LOTION APPLY A ACTIVE LIBERAL AMOUNT TOPICALLY NEEDED TO PREVENT SUNBURN 14) THIAMINE 100MG TAB TAKE TWO TABLETS BY [...] SULFATE) CAP 220MG BY MOUTH ACTIVE DAILY 21 Total Medications MENTAL STATUS EXAM: Appearance: consistent w/ stated [...] conversational testing Mood: good Affect: mood congruent LABS AND STUDIES: FOLATE (WR): 17.13 CHOLESTEROL: [...] 30.0 Neut %: 63.0 Lymph %: 25.2 Charlton %: 9.5 Eos %: 1.1 Baso %: 0.6 Neut, Abs: 5.34 Lymph, Abs: 2.13 Charlton, Abs: 0.80 Eos, Abs: 0.09 Baso, Abs: 0.05 Immature Granulocytes %: 0.6 Immature Granulocytes, Abs: 0.05 ETHANOL: <10 SAFETY ASSESSMENT: No acute safety concerns. Convincingly denies any thoughts, intents, or plans to harm self or others. Chronic risk is elevated by status and mental illness but is currently mitigated by participation in treatment and demonstration of help-seeking behaviors. IMPRESSION: [place] presents as polite, cooperative and treatment motivated Reports adherence to current medications with significant therapeutic benefit and denies side effects. Reports desire to continue with current pharmacotherapy regimen. convincingly denied current mood symptoms, cravings for ETOH or SI but his categorical denial of any mood symptoms or cravings and his minimization of SI in run-up to hospitalization suggests a reluctance to fully delve into mood symptoms. Provided psychoeducation on benefit of MSG such as AA or SMART but declined interest reports that ADHD is more difficult to manage without stimulant medication but agrees that he does not want to reinitiate a stimulant at present (or make additional changes to current medications) at present given ongoing concerns about cardiac function and absence of mood symptoms or cravings at present. Denies histroy of seizures [place] endorsed having a strong support network including his and children and noted his affection for his grandchildren as a strong protective factor that would prevent him from seriously considering SI. Also confirmed awareness of VCL and confirmed that he would reach out for help if active SI were to emerge. No acute safety concerns Diagnosis: Attention deficit hyperactivity disorder, predominantly inattentive type Major depressive disorder, recurrent, unspecified Alcohol Use Disorder, severe, in early remission PLAN: 1) CONTINUE ACAMPROSATE 666 MG PO TID 2) CONTINUE BUPROPION SR, 200 MG PO DAILY Labs: none today Follow-Up: 08/13/23 Discussed risks and benefits of proposed medication treatments including FDA approved indications and off-label uses, as well as common and severe side effects. comprehended all information discussed, had opportunity to ask questions which were answered to their satisfaction, and voluntarily and without duress agreed to trial as documented. CONTACT AND CRISIS INFO: informed that This Provider can be contacted at , [phone] or via Secure Messaging. 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 CODING: Total time today was 60 minutes, which included an in-person visit with [...] BROOKE Psychiatric Mental Health Nurse Practitioner Signed: 07/21/2023 09:23 LEXI BROOKE [place] [facility]
--- OUTSIDE RECORDS SUMMARY | 2024-06-06 17:58 | XMS_ITS ---
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 Name Role Phone JOSSELIN CHERY Primary Care [...] Name Patient's Relationship to Policy [facility] ORGANESPERANZA [place] STATE AGENC Y Aug 29, 2017 [id number] Kathy ESTRADA [facility] ORGANIZ COMMO [facility] Mar 01, 2014 [id number] [phone] Kathy ESTRADA SPOUSE MEDICARE (WNR) MEDICARE (M) PART A Sep 29, 2020 PART A [id number] [facility] Guanakito ESTRADA PATIENT MEDICARE (WNR) MEDICARE (M) PART A Sep 29, 2020 PART A [id number] [phone] Guanakito ESTRADA PATIENT Selected Encounter This section includes the information on record at [place] for the Encounter. 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 This section includes future appointments and future orders which are active, pending or scheduled. Future Appointments This section includes appointments that were scheduled to occur 6 months from the date of the Encounter, up to a maximum of 20 appointments. The data comes from all [facility]. Appointment Date/Time Appointment Type Appointme nt Facility Name Jun 08, 2024 03:30 PM AMBULATORY - PSYCHIATRY [facility] Jun 20, 2024 02:00 PM AMBULATORY - MEDICINE [facility] Aug 28, 2024 11:30 AM AMBULATORY - MEDICINE [facility] Nov 28, 2024 04:00 PM [facility] Active, Pending, and Scheduled Orders This section includes a listing of several types of active, pending, and scheduled orders, including clinic medications orders, diagnostic test orders, procedure orders and consult orders; where the start date of the order is 45 days before the date of the Encounter or 45 days after the date of theEncounter. The data comes from all [facility]. Test Date/Time Test Type Test Details Facility Name May 03, 2024 12:00 AM Laboratory - Chemistry Order LIPID PANEL FASTING BLOOD (SST-SERUM) [facility] May 03, 2024 12:00 AM Laboratory - Chemistry Order CERULOPLASMIN BLOOD (SST-SERUM) [facility] May 03, 2024 12:00 AM Laboratory - Chemistry Order HEPATITIS B SURFACE ANTIBODY (HBsAb)-WH BLOOD (SST-SERUM) [facility] May 03, 2024 12:00 AM Laboratory - Chemistry Order HEPATITIS C ANTIBODY (HCV)-ARC BLOOD (MARBLED-TOP SERUM) [facility] May 03, 2024 12:00 AM Laboratory - Chemistry Order HEPATITIS B SURFACE ANTIGEN (HBsAg)-WH BLOOD (SST-SERUM) [facility] May 03, 2024 12:00 AM Laboratory - Chemistry Order FERRITIN BLOOD (SST-SERUM) [facility] May 03, 2024 12:00 AM Laboratory - Chemistry Order IRON & TIBC PANEL BLOOD (SST-SERUM) [facility] May 03, 2024 12:00 AM Laboratory - Chemistry Order RODY SCREEN/TITER BLOOD (SST-GOLD) SERUM [facility] May 03, 2024 12:00 AM Laboratory - Chemistry Order ALPHA 1 ANTITRYPSIN BLOOD (SST-SERUM) [facility] May 03, 2024 12:00 AM Laboratory - Chemistry Order LIVER FUNCTION BLOOD (SST-SERUM) [facility] May 03, 2024 12:00 AM Laboratory - Chemistry Order CBC AND DIFF (AUTO) BLOOD (LAV-BLOOD) [facility] May 03, 2024 12:00 AM Laboratory - Chemistry Order ALBUMIN BLOOD (SST-SERUM) [facility] May 03, 2024 12:00 AM Laboratory - Chemistry Order BASIC METABOLIC PANEL (non-fasting) BLOOD (SST-SERUM) [facility] May 03, 2024 12:00 AM Laboratory - Chemistry Order HEPATITIS A ANTIBODY (IGG) BLOOD (SST-SERUM) [facility] May 03, 2024 10:31 AM Laboratory - Chemistry Order PT & INR (PROTIME) BLOOD (BLUE-PLASMA) [facility] Jun 01, 2024 12:00 AM Laboratory - Chemistry Order SURGICAL PATH ORDER SURG PATH SPEC. UNKNOWN SP [facility] Jun 06, 2024 11:39 AM Consult Order SURGERY/CWM OUTPT Cons Deputy City Clerk's Choice [facility] Advance Directives: All historical and current Section Date Range: From patient's date of to the date document was created. This section includes ALL of a patient's completed or amended [place] Advance and Rescinded Directives. The entries below indicate that a directive exists for the patient, but an actual copy is not included with this document. The data comes from all [place] facilities. Date Advance Directives Provider Source Jun 25, 2023 ADVANCE DIRECTIVE DISCUSSION AMAYA FRANZ [facility] Aug 06, 2017 ADVANCE [...] the Encounter. The data comes from all [place] treatment facilities. Date/Time Radiology Report Provider Source May 18, 2024 08:30 AM ULTRASOUND ABD WITH LIVER ELASTOGRAPHY: EMA ESTRADA [id number] -[id number] M Exm Date: MAY 18, 2024@08:30 Req Phys: JOSSELIN CHERY Loc: SPR SICK CALL AUDIT REVIEWER (Req'g Loc) Img Loc: ULTRASOUND Service: [place] [address] (Case [id number] COMPLETE) ULTRASOUND ABDOMEN LIMITED (US Detailed) CPT:50459 Reason for Study: fatty liver, ETOH (Case [id number] COMPLETE) ULTRASOUND ELASTOGRAPHY PARENCHYM(US Detailed) CPT:20833 Clinical History: Report Status: Verified Date Reported: MAY 18, 2024 Date Verified: MAY 18, 2024 Electrical Mechanic E-Sig:/ES/MAVERICK SANCHEZ JR Report: Study: Abdominal ultrasound [...] is normal. No gallstones are identified. The agronomy supervisor reports a negative sonographic Carranza sign is [...] Primary Interpreting Staff: MAVERICK SANCHEZ JR, Radiologist (Electrical Mechanic) /MAVERICK DU JR [facility] Pathology Reports: +/- 30 days of the [...] the Encounter. The data comes from all [place] treatment facilities. Date/Time Pathology Report Provider Source Jun 06, 2024 08:56 AM LR SURGICAL PATHOLOGY REPORT: LOCAL TITLE: LR SURGICAL PATHOLOGY REPORT STANDARD TITLE: PATHOLOGY DIAGNOSTIC STUDY REPORT DATE OF NOTE: JUN 06, 2024@08:56:18 ENTRY DATE: JUN 06, 2024@08:56:18 AUTHOR: MERVIN NGUYEN MD EXP COSIGNER: URGENCY: STATUS: COMPLETED $APHDR Reporting Lab: [facility] [CLIA# [id number]] [address] [place] [id number] - - - - - - - [...] - - - PATHOLOGY REPORT Accession No. [facility] 150 - - - - - - - - - - - - - - - - - - - - - - - - - - - - - - - - - - - - - - - - Gross description: The specimen is recieved from [facility], CRISTINA -150 RSP [id number];;1;Guanakito ESTRADA Received in formalin labeled with the [...] in cassette 2. RAPHAEL Rivas (ASCP) 06/02/2024 Skin, left upper back: Malignant melanoma [...] 06, 2024 at 8.30 AM. CPT codes 70346, 78837 /brenda/ MERVIN NGUYEN MD Board Certified Dermatopathologist Signed Jun 06, 2024@08:56 Performing Laboratory: Surgical Pathology Report Performed By: [facility] [CLIA# [id number]] [address] [place] [address] $FTR - - - - - - [...] - - EMA ESTRADA STANDARD FORM 515 ID:[id number] SEX:M :1955 AGE: 68 LOC:[facility] DERMATOLOGY AUDIT REVIEWER 1 PM PCP: Josselin Chery /brenda/ MERVIN NGUYEN MD Board Certified Dermatopathologist Signed: 06/06/2024 08:56 MERVIN NGUYEN MD [facility]
--- OUTSIDE RECORDS SUMMARY | 2024-06-06 17:58 | XMS_ITS ---
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 Maker Name Role Phone ARIANNE CHERY Primary Care [...] Name Patient's Relationship to Policy [facility] ORGANESPERANZA [facility] STATE AGENC Y Aug 29, 2017 [id number] Kathy ESTRADA [facility] ORGANIZ COMMO [facility] Mar 01, 2014 [id number] [phone] Kathy ESTRADA SPOUSE MEDICARE (WNR) MEDICARE (M) PART A Sep 29, 2020 PART A [id number] Guanakito ESTRADA PATIENT MEDICARE (WNR) MEDICARE (M) PART A Sep 29, 2020 PART A [id number] Guanakito ESTRADA PATIENT Selected Encounter This section includes the information on record at [place] for the Encounter. Date/Time Encounter Type Encounter Description Reason Pro vider Source July 23, 2023 03:30 PM Outpatient Encounter SUBSTANCE USE DISORDER IND IHE Encounter Template Text not used by VA Plan of Treatment: Future Appointments (+ 6 months) and Future Tests (+/- 45 days) The Plan of Treatment section includes future care activities for the patient from all [place] [facility]. This section includes future appointments and future orders which are active, pending or scheduled. Future Appointments This section includes appointments that were scheduled to occur 6 months from the date of the Encounter, up to a maximum of 20 appointments. The data comes from all [place] treatment facilities. Appointment Date/Time Appointment Type Appointme nt Facility Name Aug 13, 2023 03:30 PM AMBULATORY - [facility]ATRY [facility] [place] [facility] Aug 16, 2023 11:00 AM AMBULATORY - MEDICINE [facility] [place] [facility] Aug 27, 2023 11:30 AM AMBULATORY - MEDICINE [facility] [place] [facility] Sep 14, 2023 09:30 AM AMBULATORY - MEDICINE [facility] [place] [facility] Sep 17, 2023 03:30 PM AMBULATORY - PSYCHIATRY [facility] [place] [facility] Oct 05, 2023 01:00 PM AMBULATORY - MEDICINE [facility] [place] [facility] Oct 14, 2023 02:00 PM AMBULATORY - NONE [facility] [place] [facility] Nov 12, 2023 03:30 PM AMBULATORY - PSYCHIATRY [facility] [place] [facility] Nov 25, 2023 07:30 AM AMBULATORY - REHAB MEDICIN E [facility] [place] [facility] Nov 25, 2023 08:30 AM AMBULATORY - PSYCHIATRY [facility] [place] [facility] Nov 25, 2023 11:00 AM [facility] Dec 03, 2023 07:30 AM AMBULATORY - REHAB MEDICIN E [facility] [place] [facility] Dec 09, 2023 08:15 AM AMBULATORY - REHAB MEDICIN E [facility] [place] [facility] Dec 15, 2023 01:00 PM AMBULATORY - REHAB MEDICIN E [facility] [place] [facility] Dec 24, 2023 03:00 PM AMBULATORY - PS[facility]CHIATRY [facility] [place] [facility] Dec 31, 2023 02:30 PM AMBULATORY - [place]HAB MEDICIN [place] [email or web address] Jan 17, 2024 08:30 AM AMBULATORY - MEDICINE [place] [facility] [email or web address] Jan 17, 2024 09:45 AM AMBULATORY - MEDICINE [facility] Active, Pending, and Scheduled Orders This section includes a listing of several types of active, pending, and scheduled orders, including clinic medications orders, diagnostic test orders, procedure orders and consult orders; where the start date of the order is 45 days before the date of the Encounter or 45 days after the date of theEncounter. The data comes from all [place] treatment facilities. Test Date/Time Test Type Test Details Facility Name Aug 10, 2023 12:00 AM Laboratory - Chemi stry Order VITAMIN D (25-OH) BLOOD (SST-SERUM) [facility] Aug 10, 2023 12:00 AM Laboratory - Chemi stry Order MICROALBUMIN CREATININE RATIO PANEL URINE (RANDOM) [facility] Aug 10, 2023 12:00 AM Laboratory - Chemi stry Order BASIC METABOLIC PANEL (fasting) BLOOD (SST-SERUM) [facility] Aug 10, 2023 12:00 AM Laboratory - Chemi stry Order LIVER FUNCTION BLOOD (SST-SERUM) [facility] 11, 2024 12:00 AM Laboratory - Chemi stry Order LIPID PANEL FASTING BLOOD (SST-SERUM) [facility] 11, 2024 12:00 AM Laboratory - Chemi stry Order HEMOGLOBIN A1C PANEL BLOOD (LAV-BLOOD) [facility] 11, 2024 12:00 AM Laboratory - Chemi stry Order CBC AND DIFF (AUTO) BLOOD (LAV-BLOOD) [facility] 11, 2024 12:00 AM Laboratory - Chemi stry Order TSH BLOOD (SST-SERUM) [facility] Lab Results: +/- 30 days of the encounter This section includes the Chemistry and Hematology Lab Results on record with [place] for the patient. Radiology Reports and Pathology Reports are provided separately, in subsequent sections. Lab Results This section contains the Chemistry/Hematology Results that were resulted 30 days before or 30 daysafter the date of the Encounter. Date/Time Source Result Type Result - Unit Interpretation Reference Range Comment Jun 24, 2023 06:38 AM [facility] FOLATE (WROX) Specimen Type: SERUM No comment entered. Ordering Provider: REAGAN MÁRQUEZ Report Released Date/Time: Jun 23, 2023 11:15 AM Reporting Lab: [facility] [place] [facility] [address] [address] Performing Lab: [facility]ITALR[facility]ITALTR[facility] [address] [facility] [address] FOLATE (WROX) 17.13 ng/mL >5.2 Jun 24, 2023 06:38 AM [facility] HEMOGLOBIN A1C PANEL Specimen Type: BLOOD Comment: Values obtained from A1C measurements can vary. For atypical A1C assays, a reported value of 7.0 could actually be between 6.72 and 7.28 if measured by a reference method. A reported value of 9.0 could actually be between 8.73 and 9.27. Ref: http://www.ngs p.org/CAPdata. asp Ordering Provider: REAGAN MÁRQUEZ Report Released Date/Time: Jun 23, 2023 11:15 AM Reporting Lab: [facility]ITALRHE[facility]OSPITALTRN [facility]ENTER[facility] [address] [address] Performing Lab: [facility]OSPITALRINFIRMARY LTAC HOSPITALN [facility]ENTERUSETS [address] [address] HEMOGLOBIN A1C 5.3 4.0-5.6 Jun 24, 2023 06:38 AM [facility]USE[facility] VITAMIN B12 Specimen Type: SERUM No comment entered. Ordering Provider: REAGAN MÁRQUEZ Report Released Date/Time: Jun 23, 2023 11:15 AM Reporting Lab: [facility]ITALRHELEN KELLER HOSPITALTRN [facility]ENTERUSETS [facility] [address] [address] Performing Lab: [facility] HOSPITALRINFIRMARY LTAC HOSPITALN [facility]ENTERUSETS [address] [address] VITAMIN B12 647 pg/mL 200-900 Jun 24, 2023 06:38 AM [facility] TSH Specimen Type: SERUM No comment entered. Ordering Provider: REAGAN MÁRQUEZ Report Released Date/Time: Jun 23, 2023 11:15 AM Reporting Lab: [facility] HOSPITALRINFIRMARY LTAC HOSPITALN [facility]ENTERUSETS [address] [address] Performing Lab: [facility] [address] [address] TSH 2.11 u[IU]/mL 0.35-5.00 Jun 24, 2023 06:38 AM [facility] LIPID PANEL FASTING Specimen Type: SERUM No comment entered. Ordering Provider: REAGAN MÁRQUEZ Report Released Date/Time: Jun 23, 2023 11:15 AM Reporting Lab: [facility] [address] [address] Performing Lab: [facility] [address] [address] CHOLESTEROL 181 mg/dL TRIGLYCERIDE 180 mg/dL H 0-150 LDL calculated 106 mg/dL 0-129 CHOL/HDL 4.6 HDL CHOLESTEROL 39 mg/dL L 40-60 Advance Directives: All historical and current Section Date Range: From patient's date of to the date document was created. This section includes ALL of a patient's completed or amended [place] Advance and Rescinded Directives. The entries below indicate that a directive exists for the patient, but an actual copy is not included with this document. The data comes from all [place] facilities. Date Advance Directives Provider Source Jun 25, 2023 ADVANCE DIRECTIVE DISCUSSION AMAYA FRANZ [facility] Aug 06, 2017 ADVANCE DIRECTIVE ABDIRASHID [place] [facility] Encounter Notes: All associated encounter notes This section contains the clinical notes associated to the Encounter. Date/Time Encounter Note(s) Provider Source July 23, 2023 04:00 PM CLERICAL NOTE: LOCAL TITLE: APPOINTMENT NO SHOW STANDARD TITLE: CLERICAL NOTE DATE OF NOTE: JULY 23, 2023@16:00 ENTRY DATE: JULY 23, 2023@16:00:39 AUTHOR: DAGOBERTO GALE EXP COSIGNER: URGENCY: STATUS: COMPLETED Patient Name: EMA ESTRADA Patient SSN: [id number] Date and time of Appointment No show : 07/23/23 15:30 PATIENT PHONE - PHONE NUMBER [CELLULAR] - Patient's medical record was reviewed. Follow-up actions were determined and initiated: Please check/complete as applies: [X]Telephoned Directly [ ]Re-scheduled for next available appt [ ]Sent a N0-show letter ( must call for appointment) [ ]Other (Emergent/Overbook, etc.): Additional Comments: Patient did not show for Discharge Follow-up appointment via [id number] on: Wednesday, 23 JUL 2023 at 1530 hours. Called patient at in an attempt to reengage patient in treatment. Spoke with patient. Patient reported that he had meant to call to cancel todays appointment due to being extremely busy at work because it is opening weekend. Patient reported that he is doing well and continues to maintain abstinence form alcohol use. Future Clinic Visits 08/13/2023 15:30 CWM/NO/MHC/DEWARDO 08/27/2023 11:30 NHM/OPTOMETRY/[place]I 09/07/2023 14:30 CWM/SO/PACT 9 10/05/2023 13:00 CWM/SO/PACT // DAGOBERTO GALE [facility] Immunopathologist Signed: 07/23/2023 16:01 DAGOBERTO GALE [place] [facility]
--- OUTSIDE RECORDS SUMMARY | 2024-06-06 17:59 | XMS_ITS | Encounter Summary ---
Author Name [facility] [place] [facility] [facility] [place] Address [address] [place] [address] Care Team Providers Care Phonograph Needle Tip Maker Name Role Phone ARIANNE CHERY Primary [...] Name Patient's Relationship to Policy [facility] Aug 29, 2017 [id number] [phone] [facility] Mar 01, 2014 [id number] [phone] Kathy ESTRADA SPOUSE MEDICARE (WNR) MEDICARE (M) PART A Sep 29, 2020 PART A [id number] [place] ESTRADA PATIENT MEDICARE (WNR) MEDICARE (M) PART A Sep 29, 2020 PART A [id number] [facility] [phone] [place] ESTRADA PATIENT Selected Encounter This section includes the information on record at [place] for the Encounter. Date/Time Encounter Type Encounter Description Reason Provider Source Jun 22, 2023 09:56 AM QNHP OL DIG ASSMT&MGMT 5-10 CLINICAL PHARMACY ICD-10-CM Z04.89 Encounter for examination and observation for oth reasons MANPREET GARCIA IHKathy Encounter Template Text not used by [place] Assessments - Encounter Diagnoses This section includes the primary and secondary diagnoses documented for the Encounter. Date/Time Primary/Secondary Diagnosis Diagnosis Name Provider Source Jun 22, 2023 10:04 AM PRIMARY Encounter for examination and observation for oth reasons MANPREET GARCIA [facility] ([id number]) Plan of Treatment: Future Appointments (+ 6 months) and Future Tests (+/- 45 days) The Plan of Treatment section includes future care activities for the patient from all [place] treatmentfacilities. This section includes future appointments and [...] 05, 2023 02:30 PM AMBULATORY - PSYCHIATRY [place] [facility] [place] [facility] July 07, 2023 09:15 AM AMBULATORY - MEDICINE [place] [facility] [place] [facility] July 12, 2023 01:00 PM AMBULATORY - PSYCHIATRY [place] [facility] [place] [facility] July 16, 2023 03:00 PM AMBULATORY - PSYCHIATRY [facility] [place] [facility] July 23, 2023 03:30 PM AMBULATORY - PSYCHIATRY [facility] [place] [facility] Aug 13, 2023 03:30 PM AMBULATORY - PSYCHIATRY [facility] [place] [facility] Aug 16, 2023 11:00 AM AMBULATORY - MEDICINE [place] [facility] [place] [facility] Aug 27, 2023 11:30 AM AMBULATORY - MEDICINE [place] [facility] [place] [facility] Sep 14, 2023 09:30 AM AMBULATORY - MEDICINE [place] [facility] [place] [facility] Sep 17, 2023 03:30 PM AMBULATORY - PSYCHIATRY [facility] [place] [facility] Oct 05, 2023 01:00 PM AMBULATORY - MEDICINE [place] [facility] [place] [facility] Oct 14, 2023 02:00 PM AMBULATORY - NONE [facility] [place] [facility] Nov 12, 2023 03:30 PM AMBULATORY - PSYCHIATRY [facility] [place] [facility] Nov 25, 2023 07:30 AM AMBULATORY - REHAB MEDICIN E [facility] [place] [facility] Nov 25, 2023 08:30 AM AMBULATORY - PSYCHIATRY [facility] [place] [facility] Nov 25, 2023 11:00 AM [facility] Dec 03, 2023 07:30 AM AMBULATORY - REHAB MEDICIN E [facility] [place] [facility] Dec 09, 2023 08:15 AM AMBULATORY - REHAB MEDICIN E [facility] [place] [facility] Dec 15, 2023 01:00 PM AMBULATORY - REHAB MEDICIN E [facility] [place] [facility] Active, Pending, and Scheduled Orders This section [...] METABOLIC PANEL (fasting) BLOOD (SST-SERUM) [facility] May 14, 2023 12:00 AM Laboratory - Chemi stry Order LIPID PANEL FASTING BLOOD (SST-SERUM) [facility] May 14, 2023 12:00 AM Laboratory - Chemi stry Order LIVER FUNCTION BLOOD (SST-SERUM) [facility] May 14, 2023 12:00 AM Laboratory - Chemi stry Order HEMOGLOBIN A1C PANEL BLOOD (LAV-BLOOD) [facility] May 14, 2023 12:00 AM Laboratory - Chemi stry Order CBC AND DIFF (AUTO) BLOOD (LAV-BLOOD) [facility] May 14, 2023 12:00 AM Laboratory - Chemi stry Order TSH BLOOD (SST-SERUM) [facility] Lab Results: +/- 30 days of the [...] Range Comment Jun 24, 2023 06:38 AM [facility] FOLATE (WROX) Specimen Type: SERUM No comment entered. Ordering Provider: REAGAN MÁRQUEZ Report Released Date/Time: Jun 23, 2023 11:15 AM Reporting Lab: [facility] [place] [facility] [address] [address] Performing Lab: [facility] [address] [facility] [address] FOLATE (WROX) 17.13 ng/mL >5.2 Jun 24, 2023 06:38 AM [facility] HEMOGLOBIN A1C PANEL Specimen Type: BLOOD [...] Jun 23, 2023 11:15 AM Reporting Lab: [facility] [address] [facility] [address] Performing Lab: [facility] [address] [address] HEMOGLOBIN A1C 5.3 4.0-5.6 Jun 24, 2023 06:38 AM [facility] VITAMIN B12 Specimen Type: SERUM No comment entered. Ordering Provider: REAGAN MÁRQUEZ Report Released Date/Time: Jun 23, 2023 11:15 AM Reporting Lab: [facility] [address] [facility] [address] Performing Lab: [facility]ENTER[facility]ETS [address] [address] VITAMIN B12 647 pg/mL 200-900 Jun 24, 2023 06:38 AM [facility] TSH Specimen Type: SERUM No comment entered. Ordering Provider: REAGAN MÁRQUEZ Report Released Date/Time: Jun 23, 2023 11:15 AM Reporting Lab: [facility] [address] [facility] [address] Performing Lab: [address] [address] TSH 2.11 u[IU]/mL 0.35-5.00 Jun 24, 2023 06:38 AM [facility] LIPID PANEL FASTING Specimen Type: SERUM No comment entered. Ordering Provider: REAGAN MÁRQUEZ Report Released Date/Time: Jun 23, 2023 11:15 AM Reporting Lab: [address] [address] Performing Lab: [address] [address] CHOLESTEROL 181 mg/dL TRIGLYCERIDE 180 mg/dL H 0-150 LDL calculated 106 mg/dL 0-129 CHOL/HDL 4.6 HDL CHOLESTEROL 39 mg/dL L 40-60 Jun 22, 2023 06:30 AM [facility] LIVER FUNCTION Specimen Type: SERUM No comment entered. Ordering Provider: DONA KIM Report Released Date/Time: Jun 21, 2023 06:07 PM Reporting Lab: [address] [address] Performing Lab: [address] [address] PROTEIN,TOTAL 7.3 g/dL 6.0-8.3 ALBUMIN 4.1 g/dL 3.5-5.0 ALKALINE PHOSPHATASE 80 U/L 40-150 AST 23 U/L 5-34 ALT 39 U/L BILIRUBIN, TOTAL 0.9 mg/dL 0.2-1.2 Jun 21, 2023 03:49 PM [facility] COVID-19 MONITOR PANEL (CEPHEID) Specimen Type: NASOPHARYNX Comment: This test is authorized for emergency use only. False negative results may occur if virus is present at levels below the analytical limit of detection.Neg ative results do not preclude SARS-CoV-2 infection and should not be used as the sole basis for treatment or other patient management decisions.Cep heid FLUVID: HCPs: https://www. [place].gov/media/ 729569/downlo ad. Patients: https://www. [place].gov/media/ 826599/downlo ad Ordering Provider: DIEGO MEJIAS Report Released Date/Time: Jun 21, 2023 03:18 PM Reporting Lab: [facility] [address] Performing Lab: [address] [address] COVID-19 JARED (CEPHEID) NEGATIVE Negative Jun 21, 2023 03:29 PM [facility] ETHANOL Specimen Type: PLASMA No comment entered. Ordering Provider: DIEGO MEJIAS Report Released Date/Time: Jun 21, 2023 03:18 PM Reporting Lab: [facility] [address] [facility] [address] Performing Lab: [facility] [address] ETHANOL <10 mg/dL Jun 21, 2023 03:29 PM [facility] LIVER FUNCTION Specimen Type: SERUM No comment entered. Ordering Provider: DIEGO MEJIAS Report Released Date/Time: Jun 21, 2023 03:18 PM Reporting Lab: [address] [address] Performing Lab: [facility] [address] PROTEIN,TOTAL 8.1 g/dL 6.0-8.3 ALBUMIN 4.7 g/dL 3.5-5.0 ALKALINE PHOSPHATASE 83 U/L 40-150 AST 31 U/L 5-34 ALT 47 U/L BILIRUBIN, TOTAL 0.9 mg/dL 0.2-1.2 Jun 21, 2023 03:29 PM [facility] BASIC METABOLIC PANEL (non-fasting) Specimen Type: SERUM No comment entered. Ordering Provider: DIEGO MEJIAS Report Released Date/Time: Jun 21, 2023 03:18 PM Reporting Lab: [address] [address] Performing Lab: [address] [address] UREA NITROGEN 20 mg/dL 7-25 GLUCOSE 100 mg/dL 65-100 SODIUM 139 mmol/L 135-145 POTASSIUM 4.2 mmol/L 3.5-5.0 CHLORIDE 101 mmol/L 100-110 CO2 26 meq/L 20-30 CREATININE, Serum 0.85 mg/dL 0.50-1.40 eGFR(CKD-EPI 2020) >90 mL/min >60 Jun 21, 2023 03:29 PM [facility] DRUGS OF ABUSE Specimen Type: URINE [...] Jun 21, 2023 03:18 PM Reporting Lab: [address] [address] Performing Lab: [address] [address] AMPHETAMINES SCREEN NONE-DETECTED None-Detec josefina, Cutoff = [...] 3-1.02 0 Jun 21, 2023 03:29 PM [facility] CBC AND DIFF (AUTO) Specimen Type: BLOOD No comment entered. Ordering Provider: DIEGO MEJIAS Report Released Date/Time: Jun 21, 2023 03:18 PM Reporting Lab: [facility] [address] [facility] [address] Performing Lab: [address] [address] WBC 8.46 10*3/uL 4.50-11.00 RBC 5.43 10*6/uL 4.23-5.66 HGB 16.3 g/dL 12.8-17 HCT 47.5 39.2-50.4 MCV 87.5 fL 82-99 MCHC 34.3 g/dL 30.8-35.1 PLT 323 10*3/uL 140-360 RDW-CV 12.8 12.0-16.0 Kinney, Abs 0.80 10*3/uL 0.30-1.10 MCH 30.0 pg 26.2-32.6 Neut % 63.0 43.7-75.8 Lymph % 25.2 14.0-42.3 Kinney % 9.5 5.1-13.7 Eos % 1.1 0.4-6.8 [...] 25, 2023 ADVANCE DIRECTIVE DISCUSSION AMAYA FRANZ [place] [facility] [place] [facility] Aug 06, 2017 ADVANCE DIRECTIVE ABDIRASHID [place] Encounter Notes: All associated encounter notes This section contains the clinical notes associated to the Encounter. Date/Time Encounter Note(s) Provider Source Jun 22, 2023 09:56 AM PHARMACY MEDICATIO N MGT CONSULT: LOCAL TITLE: CONSULT REPORT/ANTICOAGULATION CLINIC STANDARD TITLE: PHARMACY MEDICATION MGT CONSULT DATE OF NOTE: JUN 22, 2023@09:56 ENTRY DATE: JUN 22, 2023@09:56:50 AUTHOR: MANPREET GARCIA COSIGNER: URGENCY: STATUS: COMPLETED ANTICOAGULATION DOAC MONITORING NOTE SUBJECTIVE: Patient identified through the DOAC population Management Tool based on the following criteria: [ ] Dosing Issue [ ] Critical Drug Interaction [ ] Cancer Treatment [ ] Active NSAID [ ] Labs Overdue [ ] Prosthetic Valve Replacement [ ] Notable Lab Value [ ] Overdue for Refill [ X ] Other: Comments: Pt admitted to 4 for EtOH detox; consult for continuation of outpt apixaban. OBJECTIVE: Indication for anticoagulation: [ ] Atrial fibrilation [ x ] Atrial flutter [ ] VTE (DVT or PE) [ ] Post-op DVT prophylaxis [ ] Other: Most recent lab values include the following: HGB: HGB Collection DT Specimen Test Name Result Units Ref Range 06/21/2023 15:29 BLOOD HGB 16.3 g/dL 12.8 - 17 PLT: WBC Collection DT Specimen Test Name Result Units Ref Range 06/21/2023 15:29 BLOOD WBC 8.46 K/cmm 4.50 - 11.00 Liver Function Tests Collection DT Spec AST ALT ALK CATHERINE ALBUMIN T BILI T. PROT 06/22/2023 07:00 SERUM 23 39 80 4.1 0.9 7.3 06/21/2023 15:29 SERUM 31 47 83 4.7 0.9 8.1 HEIGHT: 74 in [188.0 cm] (03/26/2023 13:12) WEIGHT: 225.8 lb [102.42 kg] (06/21/2023 15:12) BMI: BMI: 29.1 CREATININE-EGFR 06/21/23 15:29 0.85 10/06/22 14:10 0.82 CRCL IBW: CrCl(est): 98.0 mL/min (Creat:0.85 06/21/23) CRCL ACT: 100 mL/min CRCL ADJ: 98.0 mL/min (06/21/23) ASSESSMENT: Action required? [ ] Yes [ X ] No Comments: Pt completed [facility] initial education and 4-week follow-up for apixaban use in AFlutter. Per age, wt and SCr, apixaban 5mg q12h remains appropriate. Order processed and scheduled for 9am and 9pm. No DDIs noted w/ inpt meds. [facility] to perform chart review in 4 weeks. PLAN: [ ] No action required, dismiss flag [ x ] Will intervene: [ ] Patient education via phone/letter [ ] Schedule phone/ejan-il-dcmo follow up [ ] Lab ordered [ ] Discontinue interacting medication [ ] Discontinue DOAC [ ] Change to alternative DOAC [ ] Change DOAC dose [ ] Notify PCP [ ] Consult cardiology/hematology [ x ] Other: chart review 07/20/23 Time spent: 10 mins /brenda/ Manpreet Garcia PharmD, BCACP Clinical Direct Sales Representative Signed: 06/22/2023 10:04 Receipt Acknowledged By: 06/22/2023 10:07 /brenda/ DELMA HAYS CPHT Clinical Plastic Boat Patcher MANPREET GARCIA [facility] ([id number])
--- OUTSIDE RECORDS SUMMARY | 2024-06-06 17:59 | XMS_ITS | Encounter Summary ---
Author Name [facility] [place] [facility] [place] [facility] [facility] [place] Address [address] [place] [id number] Care Team Providers Care Special Events Assistant Name Role Phone ARIANNE CHERY Primary Care [...] Name Patient's Relationship to Policy [facility] [employer] [employer] [facility] Aug 29, 2017 [id number] Kathy ESTRADA SPOUSE [facility] CE ORGANIZ COMMO [facility] Mar 01, 2014 [id number] [phone] Kathy ESTRADA SPOUSE MEDICARE (WNR) MEDICARE (M) PART A Sep 29, 2020 PART A [id number] [facility] [phone] [place] ESTRADA PATIENT MEDICARE (WNR) MEDICARE (M) PART A Sep 29, 2020 PART A [id number] [phone] [place] ESTRADA PATIENT Selected Encounter This section includes the information on record at [place] for the Encounter. Date/Time Encounter Type Encounter Description Reason Provider Source Jun 21, 2023 03:05 PM PSYTX W PT 30 MINUTES [facility] ICD-10-CM F32.9 Major depressive disorder, single episode, unspecified YAYA FUENTES Kathy Encounter Template Text not used by [place] Assessments - Encounter Diagnoses This section includes the primary and secondary diagnoses documented for the Encounter. Date/Time Primary/Secondary Diagnosis Diagnosis Name Provider Source Jun 21, 2023 03:12 PM PRIMARY Major depressive disorder, single episode, unspecified YAYA FUENTES Jun 21, 2023 03:12 PM SECONDARY Alcohol dependence, uncomplicated YAYA FUENTES Plan of Treatment: Future Appointments (+ 6 months) and Future Tests (+/- 45 days) The Plan of Treatment section includes future care activities for the [facility] [place] [facility]. This section includes future appointments and [...] AMBULATORY - PSYCHIATRY [place] [facility] [place] [facility] July 07, 2023 09:15 AM AMBULATORY - MEDICINE [place] [facility] [place] [facility] July 12, 2023 01:00 PM AMBULATORY - PSYCHIATRY [place] [facility] [place] [facility] July 16, 2023 03:00 PM AMBULATORY - PSYCHIATRY [place] [facility] [place] [facility] July 23, 2023 03:30 PM AMBULATORY - PSYCHIATRY [facility] [place] [facility] Aug 13, 2023 03:30 PM AMBULATORY - PSYCHIATRY [place] [facility] [place] [facility] Aug 16, 2023 11:00 AM AMBULATORY - MEDICINE [place] [facility] [place] [facility] Aug 27, 2023 11:30 AM AMBULATORY - MEDICINE [place] [facility] [place] [facility] Sep 14, 2023 09:30 AM AMBULATORY - MEDICINE [place] [facility] [place] [facility] Sep 17, 2023 03:30 PM AMBULATORY - PSYCHIATRY [place] [facility] [place] [facility] Oct 05, 2023 01:00 PM AMBULATORY - MEDICINE [place] [facility] [place] [facility] Oct 14, 2023 02:00 PM AMBULATORY - NONE [facility] [place] [facility] Nov 12, 2023 03:30 PM AMBULATORY - PSYCHIATRY [facility] [place] [facility] Nov 25, 2023 07:30 AM AMBULATORY - REHAB MEDICIN E [facility] [place] [facility] Nov 25, 2023 08:30 AM AMBULATORY - PSYCHIATRY [facility] [place] [facility] Nov 25, 2023 11:00 AM [facility] Dec 03, 2023 07:30 AM AMBULATORY - REHAB MEDICIN E [facility] [place] [facility] Dec 09, 2023 08:15 AM AMBULATORY - REHAB MEDICIN E [facility] [place] [facility] Dec 15, 2023 01:00 PM AMBULATORY - REHAB MEDICIN E [facility] [place] [facility] Active, Pending, and Scheduled [...] Order BASIC METABOLIC PANEL (fasting) BLOOD (SST-SERUM) [facility] May 14, 2023 12:00 AM Laboratory - Chemi stry Order HEMOGLOBIN A1C PANEL BLOOD (LAV-BLOOD) [facility] May 14, 2023 12:00 AM Laboratory - Chemi stry Order LIPID PANEL FASTING BLOOD (SST-SERUM) [facility] May 14, 2023 12:00 AM Laboratory - Chemi stry Order LIVER FUNCTION BLOOD (SST-SERUM) [facility] May 14, 2023 12:00 AM Laboratory - Chemi stry Order CBC AND DIFF (AUTO) BLOOD (LAV-BLOOD) [facility] May 14, 2023 12:00 AM Laboratory - Chemi stry Order TSH BLOOD (SST-SERUM) [facility] Lab Results: +/- 30 [...] Range Comment Jun 24, 2023 06:38 AM [facility] FOLATE (WROX) Specimen Type: SERUM No comment entered. Ordering Provider: REAGAN MÁRQUEZ Report Released Date/Time: Jun 23, 2023 11:15 AM Reporting Lab: [facility] [place] [facility] [address] [facility] [address] Performing Lab: [facility] [address] [facility] [address] FOLATE (WROX) 17.13 ng/mL >5.2 Jun 24, 2023 06:38 AM [facility] TSH Specimen Type: SERUM No comment entered. Ordering Provider: REAGAN MÁRQUEZ Report Released Date/Time: Jun 23, 2023 11:15 AM Reporting Lab: [facility] [address] [facility] [address] Performing Lab: [facility] [address] TSH 2.11 u[IU]/mL 0.35-5.00 Jun 24, 2023 06:38 AM [facility] HEMOGLOBIN A1C PANEL Specimen Type: [...] 2023 11:15 AM Reporting Lab: [facility] [address] [facility] [address] Performing Lab: [address] [address] HEMOGLOBIN A1C 5.3 4.0-5.6 Jun 24, 2023 06:38 AM [facility] VITAMIN B12 Specimen Type: SERUM No comment entered. Ordering Provider: REAGAN MÁRQUEZ Report Released Date/Time: Jun 23, 2023 11:15 AM Reporting Lab: [facility] [address] [facility] [address] Performing Lab: [address] [address] VITAMIN B12 647 pg/mL 200-900 Jun 24, 2023 06:38 AM [facility] LIPID PANEL FASTING Specimen Type: SERUM No comment entered. Ordering Provider: REAGAN MÁRQUEZ Report Released Date/Time: Jun 23, 2023 11:15 AM Reporting Lab: [address] [address] Performing Lab: [address] [address] CHOLESTEROL 181 mg/dL TRIGLYCERIDE 180 mg/dL H 0-150 LDL calculated 106 mg/dL 0-129 CHOL/HDL 4.6 HDL CHOLESTEROL 39 mg/dL L 40-60 Jun 22, 2023 06:30 AM [facility] LIVER FUNCTION Specimen Type: SERUM No comment entered. Ordering Provider: DONA KIM Report Released Date/Time: Jun 21, 2023 06:07 PM Reporting Lab: [address] [address] Performing Lab: [address] [address] PROTEIN,TOTAL 7.3 g/dL 6.0-8.3 ALBUMIN 4.1 g/dL 3.5-5.0 ALKALINE PHOSPHATASE 80 U/L 40-150 AST 23 U/L 5-34 ALT 39 U/L BILIRUBIN, TOTAL 0.9 mg/dL 0.2-1.2 Jun 21, 2023 03:49 PM [facility] COVID-19 MONITOR PANEL (CEPHEID) Specimen Type: NASOPHARYNX Comment: This test is authorized for emergency use only. False negative results may occur if virus is present at levels below the analytical limit of detection.Neg ative results do not preclude SARS-CoV-2 infection and should not be used as the sole basis for treatment or other patient management decisions.Cep heid FLUVID: HCPs: https://www. [place].gov/media/ 993355/downlo ad. Patients: https://www. [place].gov/media/ 463149/downlo ad Ordering Provider: DIEGO MEJIAS Report Released Date/Time: Jun 21, 2023 03:18 PM Reporting Lab: [facility] [address] [facility] [address] Performing Lab: [address] [address] COVID-19 JARED (CEPHEID) NEGATIVE Negative Jun 21, 2023 03:29 PM [facility] ETHANOL Specimen Type: PLASMA No comment entered. Ordering Provider: DIEGO MEJIAS Report Released Date/Time: Jun 21, 2023 03:18 PM Reporting Lab: [facility] [address] [facility] [address] Performing Lab: [facility] [address] [facility] [address] ETHANOL <10 mg/dL Jun 21, 2023 03:29 PM [facility] LIVER FUNCTION Specimen Type: SERUM No comment entered. Ordering Provider: DIEGO MEJIAS Report Released Date/Time: Jun 21, 2023 03:18 PM Reporting Lab: [facility] [address] [facility] [address] Performing Lab: [address] [address] PROTEIN,TOTAL 8.1 g/dL 6.0-8.3 ALBUMIN 4.7 g/dL 3.5-5.0 ALKALINE PHOSPHATASE 83 U/L 40-150 AST 31 U/L 5-34 ALT 47 U/L BILIRUBIN, TOTAL 0.9 mg/dL 0.2-1.2 Jun 21, 2023 03:29 PM [facility] BASIC METABOLIC PANEL (non-fasting) Specimen Type: SERUM No comment entered. Ordering Provider: DIEGO MEJIAS Report Released Date/Time: Jun 21, 2023 03:18 PM Reporting Lab: [address] [address] Performing Lab: [address] [address] UREA NITROGEN 20 mg/dL 7-25 GLUCOSE 100 mg/dL 65-100 SODIUM 139 mmol/L 135-145 POTASSIUM 4.2 mmol/L 3.5-5.0 CHLORIDE 101 mmol/L 100-110 CO2 26 meq/L 20-30 CREATININE, Serum 0.85 mg/dL 0.50-1.40 eGFR(CKD-EPI 2020) >90 mL/min >60 Jun 21, 2023 03:29 PM [facility] DRUGS OF ABUSE Specimen Type: URINE Comment: [...] 21, 2023 03:18 PM Reporting Lab: [address] [address] Performing Lab: [address] [address] AMPHETAMINES SCREEN NONE-DETECTED None-Detec josefina, Cutoff = [...] 0 Jun 21, 2023 03:29 PM [facility] CBC AND DIFF (AUTO) Specimen Type: BLOOD No comment entered. Ordering Provider: DIEGO MEJIAS Report Released Date/Time: Jun 21, 2023 03:18 PM Reporting Lab: [facility] [address] [facility] [address] Performing Lab: [address] [address] WBC 8.46 10*3/uL 4.50-11.00 RBC 5.43 10*6/uL 4.23-5.66 HGB 16.3 g/dL 12.8-17 HCT 47.5 39.2-50.4 MCV 87.5 fL 82-99 MCHC 34.3 g/dL 30.8-35.1 PLT 323 10*3/uL 140-360 RDW-CV 12.8 12.0-16.0 Harding, Abs 0.80 10*3/uL 0.30-1.10 MCH 30.0 pg 26.2-32.6 Neut % 63.0 43.7-75.8 Lymph % 25.2 14.0-42.3 Harding % 9.5 5.1-13.7 Eos % 1.1 0.4-6.8 Baso % 0.6 0.1-2.0 Neut, Abs 5.34 10*3/uL 2.20-7.60 Lymph, Abs 2.13 10*3/uL 1.00-3.20 Eos, Abs 0.09 10*3/uL 0.03-0.44 Baso, Abs 0.05 10*3/uL 0.01-0.13 Immature Gran % 0.6 0.0-0.7 Immature Gran, Abs 0.05 10*3/uL 0.00-0.06 Social History: Smoking Status (Most current) and Tobacco Use (All prior to encounter date) This section includes the most current, and the historical, smoking and tobacco- related health factors from the [place] facility where the Encounter took place. Current Smoking Status This section includes the most current smoking, or tobacco-related health factor, from the [place] facility where the Encounter took place. Date/Time Current Smoking Status Comment Facil ity Jan 13, 2023 03:30 PM VA-TOBACCO QUIT 15 YRS OR MORE [facility] Tobacco Use History This section includes a history of the smoking, or tobacco-related health factors, that were collected on or before the date of the Encounter. The data comes from the [place] facility where the Encounter took place. Date/Time Smoking Status/Tobacco Use Comment F acility Jan 13, 2023 03:30 PM VA-TOBACCO QUIT 15 YRS OR MORE [facility] Feb 03, 2022 09:30 AM VA-TOBACCO FORMER USER [facility] Feb 03, 2022 09:30 AM VA-TOBACCO QUIT 15 YRS OR MORE [facility] Jan 28, 2021 09:00 AM VA-TOBACCO FORMER USER [facility] Jan 28, 2021 09:00 AM VA-TOBACCO QUIT 15 YRS OR MORE [facility] Feb 19, 2020 01:00 PM VA-TOBACCO FORMER USER [facility] Feb 19, 2020 01:00 PM VA-TOBACCO QUIT 15 YRS OR MORE [facility] May 02, 2018 09:49 AM VA-TOBACCO FORMER USER [facility] May 02, 2018 09:49 AM VA-TOBACCO QUIT 15 YRS OR MORE [facility] Jun 03, 2017 09:23 AM QUIT TOBACCO USE 1-7 YEARS AGO [facility] June 30, 2016 09:51 AM QUIT TOBACCO USE > 7 YEARS AGO 24 yrs ago [facility] Nov 07, 2015 01:29 PM QUIT TOBACCO USE 1-7 YEARS AGO [facility] Sep 30, 2015 01:53 PM QUIT TOBACCO USE 1-7 YEARS AGO [facility] Sep 13, 2014 02:46 PM QUIT TOBACCO USE > 7 YEARS AGO [facility] Advance Directives: All historical and current Section Date Range: From patient's date of to the date document was created. This section includes ALL of a patient's completed or amended [place] Advance and Rescinded Directives. The entries below indicate that a directive exists for the patient, but an actual copy is not included with this document. The data comes from all [facility]. Date Advance Directives Provider Source Jun 25, 2023 ADVANCE DIRECTIVE DISCUSSION AMAYA FRANZ [place] [facility] Aug 06, 2017 ADVANCE DIRECTIVE ABDIRASHID [employer] Encounter Notes: All associated encounter notes This section contains the clinical notes associated to the Encounter. Date/Time Encounter Note(s) Provider Source Jun 21, 2023 03:05 PM PSYCHOLOGY NOTE: LOCAL TITLE: PSYCHOLOGY NOTE STANDARD TITLE: PSYCHOLOGY NOTE DATE OF NOTE: JUN 21, 2023@15:05 ENTRY DATE: JUN 21, 2023@15:05:08 AUTHOR: DAGOBERTO FUENTES EXP COSIGNER: URGENCY: STATUS: COMPLETED [place] presented with his to clinic without an appointment. The undersigned met briefly with the . He noted drinking more heavily as of late, most days. Last drank last night including 1 pint and a six pack of beer, nothing yet today. He noted that he has equally been more depressed lately, including thoughts of self-harm with plan of taking an excess of pills with alcohol. He notes he no longer has a firearm having lost it following a previous DUI. With his permission, his was invited into session. [place] reports that he is motivated for a detox admission. We explored options together, and he and his felt safe to travel to [place]. Admissions was alerted, and would expect him within the hour. Vet and thankful for the support on this day. /brenda/ Dagoberto Fuentes Psy.D. ARCHITECTURAL DESIGNER, CLINICAL PSYCHOLOGIST Signed: 06/21/2023 15:13 DAGOBERTO FUENTES
--- OUTSIDE RECORDS SUMMARY | 2024-06-06 17:59 | XMS_ITS | Encounter Summary ---
Author Name [facility] [facility] [place] [facility] [place] Address [address] [place] [id number] Care Team Providers Care Air Support Control Officer Name Role Phone ARIANNE CHERY Primary Care [...] Name Patient's Relationship to Policy [facility] Aug 29, 2017 [id number] Kathy ESTRADA [facility]GANIZ COMMO [facility] Mar 01, 2014 [id number] [phone] Kathy ESTRADA SP[facility]SE MEDICARE (WNR) MEDICARE (M) PART A Sep 29, 2020 PART A [id number] [phone] Gu[place]ito ESTRADA PATIENT MEDICARE (WNR) MEDICARE (M) PART A Sep 29, 2020 PART A [id number] [facility] Guanakito ESTRADA PATIENT Selected Encounter This section includes the information on record at [place] for the Encounter. Date/Time Encounter Type Encounter Description Reason Provider Source Jan 17, 2024 08:30 AM OFF/OP EST JUNE X REQ PHY/QHP PRIMARY CARE/MEDICINE ICD-10-CM I10 Essential (primary) hypertension [facility]RA DOWNEY [facility] Encounter Template Text not used by [place] Assessments - Encounter Diagnoses This section includes the primary and secondary diagnoses documented for the Encounter. Date/Time Primary/Secondary Diagnosis Diagnosis Name Provider Source Jan 17, 2024 09:38 AM PRIMARY Essential (primary) hypertension MARIANO DOWNEY [place] Plan of Treatment: Future Appointments (+ 6 months) and Future Tests (+/- 45 days) The Plan of Treatment section includes future care activities [facility] the [facility] [place] [facility] This section includes future appointments and future orders which are active, pending or scheduled. Future Appointments This section includes appointments that were scheduled to occur 6 months from the date of the Encounter, up to a maximum of 20 appointments. The data comes from all [place] treatment facilities. Appointment Date/Time Appointment Type Appointme nt Facility Name Feb 17, 2024 03:30 PM AMBULATORY - [facility]IATRY [facility] [place] [facility] Mar 23, 2024 08:00 AM AMBULATORY - MEDICINE [facility] [place] [facility] Apr 04, 2024 09:30 AM AMBULATORY - REHAB MEDICIN E [facility] [place] [facility] Apr 05, 2024 03:30 PM AMBULATORY - PS[facility]CHIATRY [facility] [place] [facility] May 03, 2024 10:00 AM AMBULATORY - MEDICINE [facility] May 18, 2024 08:30 AM AMBULATORY - NONE [facility] [place] [facility] Jun 01, 2024 01:00 PM AMBULATORY - MEDICINE [facility] [place] [facility] Jun 08, 2024 03:30 PM AMBULATORY - PS[facility]CHIATRY [facility] [place] [facility] Jun 20, 2024 02:00 PM AMBULATORY - MEDICINE [facility] [place] [facility] Active, Pending, and Scheduled Orders This section includes a listing of several types of active, pending, and scheduled orders, including clinic medications orders, diagnostic test orders, procedure orders and consult orders; where the start date of the order is 45 days before the date of the Encounter or 45 days after the date of theEncounter. The data comes from all [place] treatment facilities. Test Date/Time Test Type Test Details Facility Name Jan 13, 2024 12:00 AM Laboratory - Chemi stry Order BASIC METABOLIC PANEL (non-fasting) BLOOD (SST-SERUM) [facility] [place] [facility] Lab Results: +/- 30 days of the encounter This section includes the Chemistry and Hematology Lab Results on record with [place] for the patient. Radiology Reports and Pathology Reports are provided separately, in subsequent sections. Lab Results This section contains the Chemistry/Hematology Results that were resulted 30 days before or 30 daysafter the date of the Encounter. Date/Time Source Result Type Result - Unit Interpretation Reference Range Comment Jan 17, 2024 08:23 AM [place] VITAMIN D 25-OH (Therapy monitor) Speci men [...] For additional information, please refer to http://[email or web address]/[email or web address] (This link is being provided for informational/ educational purposes only.) This test was developed and its analytical performance characteristics have been determined by [employer] [place], [place]. It has not been cleared or approved by the U.S. Food and Drug Administration. This assay has been validated pursuant to the CLIA regulations and is used for clinical purposes. This test was developed and its analytical performance characteristics have been determined by [employer] [place]. It has not been cleared or approved by the U.S. Food and Drug Administration. This assay has been validated pursuant to the CLIA regulations and is used for clinical purposes. Test Performed by [facility], [employer] [place], [address] [place] [address] Drake Mejia M.D., Ph.D., Director of Laboratories , CLIA [id number] TEST PERFORMED AT: , Ordering Provider: BOOGIE GARCIA Report Released Date/Time: Oct 14, 2022 04:44 PM Reporting Lab: [facility] [address] [facility] [address] Performing Lab: [facility] [address] [address] VITAMIN D, 25-OH, TOTAL 26 ng/mL L 30-100 VITAMIN D, 25-OH, D3 26 ng/mL VITAMIN D, 25-OH, D2 <4 ng/mL Jan 17, 2024 08:23 AM [place] TSH Specimen Type: SERUM No comment entered. Ordering Provider: BOOGIE GARCIA Report Released Date/Time: Oct 14, 2022 04:44 PM Reporting Lab: [facility] [address] [facility] [address] Performing Lab: [facility] [address] [facility] [address] TSH 0.98 u[IU]/mL 0.35-5.00 Jan 17, 2024 08:23 AM [place] PSA Specimen Type: SERUM No comment entered. Ordering Provider: BOOGIE GARCIA Report Released Date/Time: Oct 14, 2022 04:44 PM Reporting Lab: [facility] [address] [facility] [address] Performing Lab: [facility] [address] [facility] [address] PSA 1.07 ng/mL 0.00-4.00 Jan 17, 2024 08:23 AM [place] MICROALBUMIN CREATININE RATIO PANEL Spe cimen Type: URINE No comment entered. Ordering Provider: BOOGIE GARCIA Report Released Date/Time: Oct 14, 2022 04:44 PM Reporting Lab: [facility] [address] [facility] [address] Performing Lab: [facility]ITALUSE[address] [address] MICROALBUMIN/ CREATININE RATIO 8.7 mg/g 0-29.9 MICROALBUMIN, QUANTITATIVE 0.9 mg/dL RR UNAVAIL CREATININE URINE 103.05 mg/dL Jan 17, 2024 08:23 AM [place] LIPID PANEL FASTING Specimen Type: SERUM No comment entered. Ordering Provider: BOOGIE GARCIA Report Released Date/Time: Oct 14, 2022 04:44 PM Reporting Lab: [facility] [address] [facility] [address] Performing Lab: [address] [address] CHOLESTEROL 235 mg/dL H TRIGLYCERIDE 121 mg/dL 0-150 LDL calculated 160 mg/dL H 0-129 CHOL/HDL 4.6 HDL CHOLESTEROL 51 mg/dL 40-60 Jan 17, 2024 08:23 AM [place] HEMOGLOBIN A1C PANEL Specimen Type: BLOOD Comment: [...] Oct 14, 2022 04:44 PM Reporting Lab: [address] [address] Performing Lab: [address] [address] HEMOGLOBIN A1C 5.4 4.0-5.6 Jan 17, 2024 08:23 AM [place] BASIC METABOLIC PANEL (fasting) Specime n Type: SERUM No comment entered. Ordering Provider: BOOGIE GARCIA Report Released Date/Time: Oct 14, 2022 04:44 PM Reporting Lab: [address] [address] Performing Lab: [address] [address] UREA NITROGEN 16 mg/dL 7-25 GLUCOSE 104 mg/dL H 65-100 SODIUM 137 mmol/L 135-145 POTASSIUM 4.5 mmol/L 3.5-5.0 CHLORIDE 104 mmol/L 100-110 CO2 24 meq/L 20-30 CREATININE, Serum 0.85 mg/dL 0.50-1.40 eGFR(CKD-EPI 2020) >90 mL/min >60 Jan 17, 2024 08:23 AM [place] LIVER FUNCTION Specimen Type: SERUM No comment entered. Ordering Provider: BOOGIE AGRCIA Report Released Date/Time: Oct 14, 2022 04:44 PM Reporting Lab: [address] [address] Performing Lab: [address] [address] PROTEIN,TOTAL 7.1 g/dL 6.0-8.3 ALBUMIN 4.0 g/dL 3.5-5.0 ALKALINE PHOSPHATASE 73 U/L 40-150 AST 21 U/L 5-34 ALT 21 U/L BILIRUBIN, TOTAL 1.0 mg/dL 0.2-1.2 Jan 17, 2024 08:23 AM [place] CBC AND DIFF (AUTO) Specimen Type: BLOOD No comment entered. Ordering Provider: BOOGIE GARCIA Report Released Date/Time: Oct 14, 2022 04:44 PM Reporting Lab: [address] [address] Performing Lab: [address] [address] WBC 5.56 10*3/uL 4.50-11.00 RBC 5.25 10*6/uL [...] and tobacco- related health factors from the [place] facility where the Encounter took place. Current Smoking Status This section includes the most current smoking, or tobacco-related health factor, from the [place] facility where the Encounter took place. Date/Time Current Smoking Status Comment Facil ity Jan 17, 2024 08:30 AM VA-TOBACCO FORMER USER [place] Tobacco Use History This section includes a history of the smoking, or tobacco-related health factors, that were collected on or before the date of the Encounter. The data comes from the [place] facility where the Encounter took place. Date/Time Smoking Status/Tobacco Use Comment F acility Jan 17, 2024 08:30 AM VA-TOBACCO QUIT 15 YRS OR MORE [place] Jan 13, 2023 03:30 PM VA-TOBACCO FORMER USER [place] Jan 13, 2023 03:30 PM VA-TOBACCO QUIT 15 YRS OR MORE [place] Feb 03, 2022 09:30 AM VA-TOBACCO FORMER USER [place] Feb 03, 2022 09:30 AM VA-TOBACCO QUIT 15 YRS OR MORE [place] Jan 28, 2021 09:00 AM VA-TOBACCO FORMER USER [place] Jan 28, 2021 09:00 AM VA-TOBACCO QUIT 15 YRS OR MORE [place] Feb 19, 2020 01:00 PM VA-TOBACCO FORMER USER [place] Feb 19, 2020 01:00 PM VA-TOBACCO QUIT 15 YRS OR MORE [place] May 02, 2018 09:49 AM VA-TOBACCO FORMER USER [place] May 02, 2018 09:49 AM VA-TOBACCO QUIT 15 YRS OR MORE [place] Jun 03, 2017 09:23 AM QUIT TOBACCO USE 1-7 YEARS AGO [place] June 30, 2016 09:51 AM QUIT TOBACCO USE > 7 YEARS AGO 24 yrs ago [place] Nov 07, 2015 01:29 PM QUIT TOBACCO USE 1-7 YEARS AGO [place] Sep 30, 2015 01:53 PM QUIT TOBACCO USE 1-7 YEARS AGO [place] Sep 13, 2014 02:46 PM QUIT TOBACCO USE > 7 YEARS AGO [place] Advance Directives: All historical and current Section Date Range: From patient's date of to the date document was created. This section includes ALL of a patient's completed or amended [place] Advance and Rescinded Directives. The entries below indicate that a directive exists for the patient, but an actual copy is not included with this document. The data comes from all [place] facilities. Date Advance Directives Provider Source Jun 25, 2023 ADVANCE DIRECTIVE DISCUSSION AMAYA FRANZ [facility] [place] [facility] Aug 06, 2017 ADVANCE DIRECTIVE ABDIRASHID [facility] Encounter Notes: All associated encounter notes This section contains the clinical notes associated to the Encounter. Date/Time Encounter Note(s) Provider Source Jan 17, 2024 09:00 AM NURSING NOTE: LOCAL TITLE: PRIMARY CARE NURSE NOTE STANDARD TITLE: NURSING NOTE DATE OF NOTE: JAN 17, 2024@09:00 ENTRY DATE: JAN 17, 2024@09:07:38 AUTHOR: MARIANO DOWNEY COSIGNER: URGENCY: STATUS: COMPLETED F: ===== EMA ESTRADA is a 68 yo who presents to the clinic for a BP check per LAZARO GARCIA for diagnosis of HTN. Pt states takes Lisinopril in the morning and Amlodipine at night. D: ===== Pt. has a history of: Active problems - Computerized Problem List is the source for the followin. Alcohol dependence 2. Atrial flutter 3. Long-term current use of anticoagulant 4. Admits alcohol use 5. Steatosis of liver 6. Hypertension 7. Attention deficit hyperactivity disorder, predominantly inattentive type 8. Impaired fasting glucose 9. Cataract, Unspecified 10. Degenerative joint disease 11. Major depressive disorder Issue Date Status Last Fill Active Outpatient Medications Refills Expiration ===== 1) ACAMPROSATE CA 333MG EC TAB Qty: 180 HOLD Issu:07-16-23 for 30 days Sig: TAKE TWO TABLETS BY Refills: 1 Last:11-12-23 MOUTH THREE TIMES DAILY WITH MEALS TO Expr:07-16-24 BE USED UNTIL REMAINDER OF REGULAR PRESCRIPTION ARRIVES IN THE MAIL 2) AMLODIPINE BESYLATE 5MG TAB Qty: 90 for ACTIVE Issu:01-13-24 90 days Sig: TAKE ONE TABLET BY MOUTH Refills: 3 Last:01-13-24 ONCE DAILY FOR BLOOD PRESSURE/HEART, Expr:01-13-25 DO NOT TAKE WITH GRAPEFRUIT JUICE 3) APIXABAN 5MG TAB Qty: 180 for 90 days ACTIVE (S) Issu:11-11-23 Sig: TAKE ONE TABLET BY MOUTH EVERY 12 Refills: 1 Last:02-02-24 HOURS Expr:11-11-24 4) BUPROPION HCL 300MG 24HR SA TAB Qty: 90 ACTIVE Issu:12-24-23 for 90 days Sig: TAKE ONE TABLET BY Refills: 2 Last:12-24-23 MOUTH EVERY MORNING MOOD Expr:12-24-24 5) FOLIC ACID 1MG TAB Qty: 90 for 90 days ACTIVE Issu:09-14-23 Sig: TAKE ONE TABLET BY MOUTH ONCE Refills: 3 Last:09-14-23 DAILY FOR ANEMIA FROM INADEQUATE FOLIC Expr:09-14-24 ACID VITAMIN/NUTRITION SUPPLEMENT 6) LISINOPRIL 10MG TAB Qty: 90 for 90 days ACTIVE Issu:09-14-23 Sig: TAKE ONE TABLET BY MOUTH ONCE Refills: 3 Last:11-01-23 DAILY TO CONTROL BLOOD PRESSURE Expr:09-14-24 7) LISINOPRIL 20MG TAB Qty: 90 for 90 days ACTIVE Issu:01-13-24 Sig: TAKE ONE TABLET BY MOUTH ONCE Refills: 3 Last:01-13-24 DAILY TO CONTROL BLOOD PRESSURE Expr:01-13-25 8) MULTIVITAMIN/MINERALS CAP/TAB Qty: 100 ACTIVE Issu:09-14-23 for 90 days Sig: TAKE ONE CAP/TAB BY Refills: 3 Last:09-14-23 MOUTH ONCE DAILY Expr:09-14-24 9) POTASSIUM CHLORIDE 10MEQ SA TAB Qty: 90 ACTIVE Issu:11-19-23 for 90 days Sig: TAKE ONE TABLET BY Refills: 0 Last:11-19-23 MOUTH ONCE DAILY WHILE ON FUROSEMIDE Expr:02-17-24 10) THIAMINE 100MG TAB Qty: 200 for 90 days ACTIVE Issu:09-14-23 Sig: TAKE TWO TABLETS BY MOUTH ONCE Refills: 2 Last:09-14-23 DAILY Expr:09-14-24 Start Date Active Non-VA Medications Refills Expiration ===== 1) Non-VA ASCORBIC ACID 500MG TAB Sig: ACTIVE 500MG BY MOUTH DAILY 2) Non-VA FISH OIL 1000MG (500MG DHA/EPA) ACTIVE CAP SiMG BY MOUTH DAILY 3) Non-VA HOMA CAP/TAB Sig: DOSE UNKNOWN ACTIVE BY MOUTH ONCE DAILY 4) Non-VA MULTIVITAMIN CAP/TAB Si ACTIVE TABLET BY MOUTH ONCE DAILY 5) Non-VA OTHER CAP/TAB Sig: MEDIUM CHAIN ACTIVE TRIGLYCERIDES BY MOUTH ONCE DAILY 6) Non-VA OTHER CAP/TAB Sig: PLANT PROTEIN ACTIVE BY MOUTH ONCE DAILY 7) Non-VA ZINC 50MG (FROM SULFATE) CAP ACTIVE SiMG BY MOUTH DAILY 17 Total Medications Allergies: Patient has answered NKA Patient Medication Management: All of above except: HTN MANAGEMENT Date Vital Measurement Qualifiers 01/17/2024 09:08 Pulse 69 Respir 16 BP 138/88 Ht in (cm) 74 (187.96) Wt lbs. (kg)[BMI] 217 (98.43)[28*] POx (L/Min)(%) 99 At Rest Symptoms REPORTED: None Symptoms DENIED: CP , SOB , HUMPHREY , DZ , or palpitations, Edema , visual changes, fatigue , cough, Orthostasis , syncope Chest pain/pressure, Orthopnea, Palpitations, Racing heart, Lower extremity swelling, Sudden weight gain, Diaphoresis Arm Pain, Jaw Pain Educated on Diet, medication management, physical activity, weight management. The patient walks two miles every day. His favorite beverages are Gatorade, Selzer water, and water. Eating fruits, fish, seafood, and chicken is something the patient appreciates. [place] reports he only eats fried food 1-2 a week. The patient says that occasionally, he consumes red meat like a hamburger. Methods: Verbal A/P: ===== Patient will continue to monitor blood pressure at home and send readings via [facility]. R: PRN Upcoming Appointments: 01/17/2024 09:45 [facility] CARE-CARDIOLOGY 02/17/2024 15:30 CWM/NO/MHC/EDWARDO 03/15/2024 10:30 CWM/SO/PACT 9 06/01/2024 13:00 CWM/NO/DERMATOLOGY GROUP COUNSELOR 08/28/2024 11:30 NHM/OPTOMETRY/[place] No barriers; Patient understands and agrees to current treatment plan. If pt. has any questions, concerns, or changes in current health status he will call or [facility] 20 minutes spent in patient care and education CLINCAL REMINDERS BMI>30/>24.99 High Risk: Patient and provider agree that current weight is within a healthy range and further discussion is not necessary at this time. Hepatitis B Serology/Immunization: The patient declines to have HBV serology done. Reason: Per Pneumococcal Conjugate Vaccine (PCV15/PCV20): Refuses PCV vaccine Immunization: PNEUMOCOCCAL CONJUGATE, UNSPECIFIED FORMULATION Refusal Reason: PATIENT DECISION Patient refuses all immunization(s) in the PneumoPCV group Date Documented: 01/17/24 09:15 Tobacco Use Screening: The patient is a former tobacco user. The patient quit fifteen or more years ago. Influenza Immunization: Deferral / Refusal The patient declines to receive the recommended dose of seasonal influenza vaccine. Immunization: INFLUENZA, UNSPECIFIED FORMULATION Refusal Reason: PATIENT DECISION Patient refuses all immunization(s) in the FLU group Date Documented: 01/17/24 09:15 COVID-19 Immunization: Refused Moderna Monovalent COVID-19 vaccine Immunization: COVID-19 (MODERNA), MRNA, LNP-S, PF, 50 MCG/0.5 ML (AGES 12+ YEARS) Refusal Reason: PATIENT DECISION Patient refuses all immunization(s) in the COVID-19 group Date Documented: 01/17/24 09:16 Hepatitis A Vaccine for High Risk: Patient declines/refuses Hepatitis A immunization Immunization: HEP A, UNSPECIFIED FORMULATION Refusal Reason: PATIENT DECISION Patient refuses all immunization(s) in the HepA group Date Documented: 01/17/24 09:16 HIV--Deferred to provider /brenda/ JEFFERSON ALCALA,RN-BC REGISTERED NURSE (RN) Signed: 01/17/2024 09:38 MARIANO DOWNEYFIELD
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
--- OUTSIDE RECORDS SUMMARY | 2024-06-06 17:59 | XMS_ITS ---
Author Name [facility] [facility] [place] [facility] [place] Address [address] [place] [id number] Care Team Providers Care Electronic Communications Technician Name Role Phone ARIANNE CHERY Primary [...] Policy Rizvi's Name Patient's Relationship to Policy Irzvi [facility] [employer] Aug 29, 2017 [id number] Kathy ESTRADA [facility] Mar 01, 2014 [id number] [phone] Kathy ESTRADA SPOUSE MEDICARE (WNR) MEDICARE (M) PART A Sep 29, 2020 PART A [id number] [facility] [phone] [place] ESTRADA PATIENT MEDICARE (WNR) MEDICARE (M) PART A Sep 29, 2020 PART A [id number] [facility] Guan[place]ito ESTRADA PATIENT Selected Encounter This section includes the information on record at [place] for the Encounter. Date/Time Encounter Type Encounter Description Reason Provider Source Dec 31, 2023 02:30 PM MANUAL THERAPY 1/> [facility] ICD-10-CM M54.2 Cervicalgia ARACELI ORELLANA [facility] Encounter Template Text not used by [place] Assessments - Encounter Diagnoses This section includes the primary and secondary diagnoses documented for the Encounter. Date/Time Primary/Secondary Diagnosis Diagnosis Name Provider Source Dec 31, 2023 03:15 PM PRIMARY Cervicalgia ARACELI ORELLANA [place] [facility] [place] [facility] Plan of Treatment: Future Appointments (+ 6 months) and Future Tests (+/- 45 days) The Plan of Treatment section includes future care activities for the [facility] [place] [facility] This section includes future appointments and future orders which are active, pending or scheduled. Future Appointments This section includes appointments that were scheduled to occur 6 months from the date of the Encounter, up to a maximum of 20 appointments. The data comes from all [place] treatment facilities. Appointment Date/Time Appointment Type Appointme nt Facility Name Jan 17, 2024 08:30 AM [facility] [place] [facility] Jan 17, 2024 09:45 AM [facility]UL[facility] [place] [facility] Feb 17, 2024 03:30 PM AMBULATORY - PSYCHIATRY [facility] [place] [facility] Mar 23, 2024 08:00 AM AMBULATORY [facility]ICINE [facility] [place] [facility] Apr 04, 2024 09:30 AM AMBULATORY - REHAB MEDICIN E [facility] [place] [facility] Apr 05, 2024 03:30 PM AMBULATORY - PSYCHIATRY [facility] [place] [facility] May 03, 2024 10:00 AM AMBULATORY - MEDICINE [facility] May 18, 2024 08:30 AM AMBULATORY - NONE [facility] [place] [facility] Jun 01, 2024 01:00 PM AMBULATORY - MEDICINE [facility] [place] [facility] Jun 08, 2024 03:30 PM AMBULATORY - PSYCHIATRY [facility] [place] [facility] Jun 20, 2024 02:00 PM AM[place]ULATORY - [place]ICINE [place] [facility] [facility] Active, Pending, and Scheduled Orders [...] Order BASIC METABOLIC PANEL (non-fasting) BLOOD (SST-SERUM) [facility] [place] [facility] Lab Results: +/- 30 days [...] Range Comment Jan 17, 2024 08:23 AM [facility] VITAMIN D 25-OH (Therapy monitor) Speci men [...] For additional information, please refer to http://education .BedyCasa.Couchbase/faq/ZWR833 (This link is being provided for informational/ educational purposes only.) This test was developed and its analytical performance characteristics have been determined by [employer] [place], [place]. It has not been cleared or approved by the U.S. Food and Drug Administration. This assay has been validated pursuant to the CLIA regulations and is used for clinical purposes. This test was developed and its analytical performance characteristics have been determined by [employer] [place], [place]. It has not been cleared or approved by the U.S. Food and Drug Administration. This assay has been validated pursuant to the CLIA regulations and is used for clinical purposes. Test Performed by [facility] [place], Realie Cedillo[address] Drake Mejia M.D., Ph.D., Director of Laboratories , [facility] [id number] TEST PERFORMED AT: , Ordering Provider: BOOGIE GARCIA Report Released Date/Time: Oct 14, 2022 04:44 PM Reporting Lab: [facility] [facility] [address] [facility] [address] Performing Lab: [facility] [address] [address] VITAMIN D, 25-OH, TOTAL 26 ng/mL L 30-100 VITAMIN D, 25-OH, D3 26 ng/mL VITAMIN D, 25-OH, D2 <4 ng/mL Jan 17, 2024 08:23 AM [facility] TSH Specimen Type: SERUM No comment entered. Ordering Provider: BOOGIE GARCIA Report Released Date/Time: Oct 14, 2022 04:44 PM Reporting Lab: [facility] [place] [facility] [address] [facility] [address] Performing Lab: [facility] [place] [facility] [address] [facility] [address] TSH 0.98 u[IU]/mL 0.35-5.00 Jan 17, 2024 08:23 AM [facility] PSA Specimen Type: SERUM No comment entered. Ordering Provider: BOOGIE GARCIA Report Released Date/Time: Oct 14, 2022 04:44 PM Reporting Lab: [facility] [place] [facility] [address] [facility] [address] Performing Lab: [facility] [place] [facility] [address] [facility] [address] PSA 1.07 ng/mL 0.00-4.00 Jan 17, 2024 08:23 AM [facility] MICROALBUMIN CREATININE RATIO PANEL Spe cimen Type: URINE No comment entered. Ordering Provider: BOOGIE GARCIA Report Released Date/Time: Oct 14, 2022 04:44 PM Reporting Lab: [facility] [place] [facility] [address] [facility] [address] Performing Lab: [place] [facility] [address] MICROALBUMIN/ CREATININE RATIO 8.7 mg/g 0-29.9 MICROALBUMIN, QUANTITATIVE 0.9 mg/dL RR UNAVAIL CREATININE URINE 103.05 mg/dL Jan 17, 2024 08:23 AM [facility] HEMOGLOBIN A1C PANEL Specimen Type: BLOOD Comment: [...] Oct 14, 2022 04:44 PM Reporting Lab: [address] [address] Performing Lab: [address] [address] HEMOGLOBIN A1C 5.4 4.0-5.6 Jan 17, 2024 08:23 AM [facility] LIPID PANEL FASTING Specimen Type: SERUM No comment entered. Ordering Provider: BOOGIE GARCIA Report Released Date/Time: Oct 14, 2022 04:44 PM Reporting Lab: [address] [address] Performing Lab: [address] [address] CHOLESTEROL 235 mg/dL H TRIGLYCERIDE 121 mg/dL 0-150 LDL calculated 160 mg/dL H 0-129 CHOL/HDL 4.6 HDL CHOLESTEROL 51 mg/dL 40-60 Jan 17, 2024 08:23 AM [facility] LIVER FUNCTION Specimen Type: SERUM No comment entered. Ordering Provider: BOOGIE GARCIA Report Released Date/Time: Oct 14, 2022 04:44 PM Reporting Lab: [address] [address] Performing Lab: [address] [address] PROTEIN,TOTAL 7.1 g/dL 6.0-8.3 ALBUMIN 4.0 g/dL 3.5-5.0 ALKALINE PHOSPHATASE 73 U/L 40-150 AST 21 U/L 5-34 ALT 21 U/L BILIRUBIN, TOTAL 1.0 mg/dL 0.2-1.2 Jan 17, 2024 08:23 AM [facility] BASIC METABOLIC PANEL (fasting) Specime n Type: SERUM No comment entered. Ordering Provider: BOOGIE GARCIA Report Released Date/Time: Oct 14, 2022 04:44 PM Reporting Lab: [address] [address] Performing Lab: [address] [address] UREA NITROGEN 16 mg/dL 7-25 GLUCOSE 104 mg/dL H 65-100 SODIUM 137 mmol/L 135-145 POTASSIUM 4.5 mmol/L 3.5-5.0 CHLORIDE 104 mmol/L 100-110 CO2 24 meq/L 20-30 CREATININE, Serum 0.85 mg/dL 0.50-1.40 eGFR(CKD-EPI 2020) >90 mL/min >60 Jan 17, 2024 08:23 AM [facility] CBC AND DIFF (AUTO) Specimen Type: BLOOD No comment entered. Ordering Provider: BOOGIE GARCIA Report Released Date/Time: Oct 14, 2022 04:44 PM Reporting Lab: [address] [address] Performing Lab: [address] [address] WBC 5.56 10*3/uL 4.50-11.00 RBC 5.25 10*6/uL [...] 2023 ADVANCE DIRECTIVE DISCUSSION AMAYA FRANZ [place] [facility] Aug 06, 2017 ADVANCE DIRECTIVE ABDIRASHID [place] [employer] Encounter Notes: All associated encounter notes This section contains the clinical notes associated to the Encounter. Date/Time Encounter Note(s) Provider Source Dec 31, 2023 02:31 PM PHYSICAL THERAPY DISCHARGE NOTE: LOCAL TITLE: PHYSICAL THERAPY DISCHARGE NOTE STANDARD TITLE: PHYSICAL THERAPY DISCHARGE NOTE DATE OF NOTE: DEC 31, 2023@14:31 ENTRY DATE: DEC 31, 2023@14:31:18 AUTHOR: ARACELI ORELLANA EXP COSIGNER: URGENCY: STATUS: COMPLETED Initial Evaluation date: 11/25/23 Progress Note Date: Treatment #: 4 Treatment time: 30' Diagnosis: Cervicalgia Provider: Rc EASLEY Treatment Precautions: Aflutter Patient identified by full name and date of SUBJECTIVE: I almost called to cancel and just thank you. Reports 95% better. Reports occasionally some pain on the L UT area but overall improved. OBJECTIVE: initial today Cervical flex: full w/ mm tension full Extension: limited 50% w/ some pain 75% Lat flex: 25* 20* 30 28 Rotation: 52 30 * 65 68 THERAPEUTIC EXERCISE: MINUTES: MANUAL THERAPY: MINUTES: 25 mins DTM/TPR scalenes, UT, Lev scap SCS scalenes, pos cerv CPR glides grade III w/ osciallations lateral glides grade II w/ oscillations manual cervical traction SOR GAIT TRAINING: MINUTES: NEUROMUSCULAR EDUCATION: MINUTES: OTHER: MINUTES: MODALITIES: MINUTES: [] Contraindication screen completed prior to modality [] Skin intact pre/post SELF CARE/EDUCATION: MINUTES: Patient education was provided for all aspects of care during this clinical encounter. ASSESSMENT: Pt w/ excellent progress, has met all goals. ROM WNL this date w/o pain. GOALS: ALL MET 1.) Pt will have 50 deg or greater of cervical rotation w/o pain 2.) Pt will drive car w/o cervical pain 3.) Pt will sleep through the night w/o pain 4.) Pt will be I w/ HEP for continued self management of cervical spine. PLAN:Discharge from PT this date w/ HEP. /brenda/ Araceli Orellana PT,DPT PHYSICAL THERAPIST Signed: 12/31/2023 15:15 ARACELI ORELLANA [place] [facility]
--- OUTSIDE RECORDS SUMMARY | 2024-06-06 17:59 | XMS_ITS ---
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 symptomatic. >Records notable for staff observations, CIWA scales 0, no Serax given. In interview with the team, the patient [...] or anhedonia. He is without hypomania or milad and does not display mixed symptoms. The [...] to proceed carefully and methodically. SAKINA Andrew graduate internship summarizes the team meeting with the patient: [...] he wants to go home . The [place] stated that he has a lot of outside responsibilities associated to his home, , and family. Providers shared their concern about the SI that the [place] was facing when he was admitted and his plan. The stated that he has no current SI or plan. He expressed that he often experiences SI when he is drinking. The feels he has alot of strong supports at home and hoem would be a better option for him. The [place] stated that his left eye is still bothering him. The plan for discharge is Wednesday06/28/2023. The [place] has consult placed for the [facility] where he will be assigned an indiviual therapist, attend the [facility], and start back up AA groups in the [facility]. If the is struggling to stay sober he will be bumped up to [facility]. A consult is also placed with a can capper in [place] to see if he can continue to take his Adderall. The is going to start taking Camphral today to help with alcohol cravings. The stated that he had taken it in 2010 for 6-7 months, he stated that it worked well for him. The Veterans goal for the day is to attend groups and build a puzzle. Subsequent to our meeting, Kathy Laraaudrey YOUNGSW has been able to speak with the [...] while drinking and expressed suicidal thoughts. Ms. Bermudez was able to confirm that all firearms are out of the house. Plan for today will be to restart acamprosate, will consider addition of low- dose S-Citalopram tomorrow if target symptoms are present. 06/25/2023: Patient discusses with the interviewer that he [...] is going to be seeing his community can capper at [place] 07/07/2023 for his atrial flutter and it may be more prudent for him to discuss Adderall with the can capper at that appointment and then close the [...] a copy of 06/21/2023 office note from [facility]. He was seen by Dr. [...] will be scanned into the patient's chart. 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 The patient remains determined to go home on 06/28/2023. Have discussed medication storage/administration with Ms. Bermudez, who will contact the patient's to see if she is willing to obtain a lockbox with patient's medications and help him use a weekly pill organizer. Firearms are out of the house as previously noted and Ms. Bermudez is going to give the patient's son trigger locks. As noted 06/25/2023: 1. Ms. Bermudez and [...] other supports including: - 24-hour Zoom links -[facility] website for meetings -[facility] -[facility] and [facility] drop in groups. 3. This physician has spoken with Lashonda Morris APRN to review the case with her. She concurs with current management and informs the physician that she is retiring at the end of this month, which underscores indication for transition in prescriber to this campus on discharge. Ms. Morris asks that the physician convey the news of her penitentiary to the patient and that the physician tender her regards and best wishes to him. Physician has subsequently spoken with the patient, who accepts the news with equanimity and reiterates his preference for following up here. 4. SPC has reviewed referral and has declined to place [facility] for suicide risk. Seen by Dr. Saldaña over the following weekend: (06/26/2023) Reviewed with nursing, no issues, doing well Much better since beginning of the week, outlook, mood are markedly improved. Energy is intact. No cardiac symptoms. Off adderall for about 2 weeks, sometimes i need it, sometimes i don't feels does not need it now. Notes would like to leave on Wednesday, if possible, works at [employer]. Works at [employer], notes is quite busy. Notes with regards to [...] treatments Discharge planning likely at noon tomorrow. 06/28/2023: Patient presents today freshly dressed in casual [...] hospital admission, is not appropriate for involuntary penitentiary and wishes to be discharged. Appropriate follow up is in place as below. PROBLEM: SUBSTANCE ABUSE The patient completed an uneventful detox course and declined SA RRTP and IOP when offered. did accept a [facility] referral and agreed to a number of other supports and to attend IOP if unsuccessful. The was educated about the health risks involved with alcohol and illicit drug use. The was advised to refrain from drugs and alcohol. Patient did engage in some change talk. Patient appeared motivated to navigate a clean and sober life. The had a plan for follow-up with VA providers and also to attend A.A. meetings. was advised to attend A.A. daily and to obtain sponsorship. In addition, he was given the following referrals: - 24-hour Zoom links -[facility] website for meetings -[facility] -[facility] and [facility] drop in groups. Medications for addiction: Acamprosate PROBLEM: MEDICAL During his inpatient stay, the was medically stable. Laboratory values were reviewed and discussed with the patient, and were notable for: ECG 06/23/2023: Atrial flutter with 4-1 AV conduction, 67 bpm, Q waves in leads III and F consistent with old IWMI, QTC 429-452 ms. SERUM Apr 25 Apr Reference 2023 2023 Units Ranges B12 647 pg/mL 200 - 900 FOLATE 17.13 ng/mL Ref: >=5.2 SERUM Apr 23 Apr 22 Reference 2023 2023 15:29 Units Ranges GLUCOSE 100 mg/dL 65 - 100 BUN 20 mg/dL 7 - 25 CREATININE 0.85 mg/dL .5 - 1.4 eGFR(IDMS) Ref: >=60 CREAT mg/dL .5 - 1.5 eGFR See Eval Ref: See Eval Sodium 139 mmol/L 135 - 145 K+/Pot 4.2 mmol/L 3.5 - 5 CL 101 mmol/L 100 - 110 CO2 26 mEq/L 20 - 30 CA mg/dL 8.5 - 10.2 UricAci mg/dL 3.5 - 7.2 NH3/Amm PO4 mg/dL 2.5 - 5 T. PROT 7.3 8.1 g/dL 6 - 8.3 ALBUMIN 4.1 4.7 g/dL 3.5 - 5 T BILI 0.9 0.9 mg/dL .2 - 1.2 D. BILI mg/dL 0 - .5 AST 23 31 U/L 5 - 34 ALT 39 47 U/L <6 - 55 GGT U/L 10 - 65 ALK CATHERINE 80 83 U/L 40 - 150 SERUM Apr 25 Reference 2023 Units Ranges CHOL 181 mg/dL <7 - 199 TRIG 180 H mg/dL 0 - 150 HDL 39 L mg/dL 40 - 60 LDL-d mg/dL <10 - 120 LDL 106 mg/dL 0 - 129 CHO/HDL 4.6 BLOOD Jun 23 Reference 2023 Units Ranges HgbA1c Hgb-A1c % 4.4 - 6.1 Hgb-A1c % 3 - 6.1 HGB A1C % 4.4 - 6.4 Hgb-A1C % 3.4 - 6.1 HGB-A1c 5.3 % 4 - 5.6 SERUM Apr 2023 Units Ranges T-U % 32 - 48 T4 ug/dL 4.5 - 12 TSH 2.11 uIU/mL .35 - 5 URINE Jun 202023 15:29 Units Ranges BARBIT Ref: Neg AMPHET NONE-DETECTED Ref: None-Detected, Cutoff = 1000 ng/mL METHAmp Ref: Neg COCAINE Ref: Neg BENZO Ref: Neg THC ng/ml Ref: <100 OPIATES Ref: Neg CODEINE Ref: Neg MORPHIN Ref: Neg PROPOXY Ref: Neg PCP URINE Jun 202023 15:29 Units Ranges BENZO NONE-DETECTED Ref: None-Detected, Cutoff = 200 ng/mL BenzCon Ref: Negative, Cutoff = 100 (Alprazolam 50) ng/mL COCAINE NONE-DETECTED Ref: None-Detected,Cutoff = 300 ng/mL CocaCon ng/mL Ref: Not Detected: Cutoff = 100 ng/mL OPIATES NONE-DETECTED Ref: None-Detected, Cutoff = 300 ng/mL OpiConf Ref: Negative, Cutoff = 100 ng/mL THC POSITIVE H* Ref: None-Detected,Cutoff = 50 ng/mL THCConf ng/mL Ref: Not Detected: Cutoff = 5 ng/mL BARBIT NONE-DETECTED Ref: None-Detected,Cutoff = 200 ng/mL BARBCon Ref: Neg PROPOXY PROPCon Ref: Negative, Cutoff = 100 ng/mL BLOOD Jun 20 Reference 2023 15:29 Units Ranges WBC 8.46 [...] 75.8 Lymph% 25.2 % 14 - 42.3 Dade% 9.5 % 5.1 - 13.7 Eos% 1.1 % .4 - 6.8 Baso% 0.6 % .1 - 2 NeutAbs 5.34 K/cmm 2.2 - 7.6 LymAbs 2.13 K/cmm 1 - 3.2 MonoAbs 0.80 K/cmm .3 - 1.1 EosAbs 0.09 K/cmm .03 - .44 BasoAbs 0.05 K/cmm .01 - .13 DATE TIME SPECIMEN TEST VALUE Ref ranges Jun 21, 2023@15:49 NASOPHARYNX COVID-19 JARED (CEPHEID): NEGATIVE Ref: Negative Jun 21, 2023@15:29 URINE OXYCODONE SCREEN: NONE-DETECTED Ref: None-Detected, Cutoff = 100 ng/mL Jun 21, 2023@15:29 URINE BUPRENORPHINE (URINE): NONE-DETECTED Ref: None Detected, Cutoff = 10.0 ng/mL Jun 21, 2023@15:29 URINE ALCOHOL, ETHYL URINE: NONE-DETECTED mg/dLRef: NONE-DETECTED, cutoff = 10 mg/dL Jun 21, 2023@15:29 URINE FENTANYL SCREEN: NONE-DETECTED ng/mLRef: Negative: Cutoff = 1.00 ng/mL Jun 21, 2023@15:29 PLASMA ETHANOL: <10 mg/dL Ref: <10 is Negative SOCIAL: Above Housing:Above Legal:Above Family/relationship issues:Above Other: Above . Condition at time of discharge: Stable and improved VII. Mental Status at time of discharge: Mental Status: Alert, older adult man, casually [...] Neurovegetative: sleep improved, appetite good. J/I: fair VIII. Instructions to patient Upon Discharge 1. Medications at the time of discharge included: ACAMPROSATE CA 333MG EC TAB TAKE TWO [...] Provider: LAZARO GARCIA MED ORGANIZER 7DAY/4 SLOT APEX#[id number] USE 1 ORGANIZER PENDING DIRECTED ONCE DAILY [...] # Refills: Quantity: 60 Issue Date: Provider: 2. DISCHARGE PLANS: To return home, and will resume outpatient treatment as follows: Future Clinic Visits 07/05/2023 14:30 NHM/MHC/BALJINDER 07/07/2023 09:15 [facility] 07/12/2023 13:00 NHM/MHC/BALJINDER 07/16/2023 15:00 CWM/NO/MHC/EDWARDO 07/23/2023 15:30 NHM/MHC/BALJINDER 08/27/2023 11:30 NHM/OPTOMETRY/BORASKI 09/07/2023 14:30 CWM/SO/PACT 9 10/05/2023 13:00 CWM/SO/PACT 9 3. DIETARY RESTRICTIONS: none; healthy eating habits reinforced; 4. PHYSICAL ACTIVITY RESTRICTIONS: Atrial flutter, DJD/neck pain, macular degeneration IX. Competence: I consider this patient to be COMPETENT to manage own funds, for VA purposes. /es/ REAGAN MÁRQUEZ MD PSYCHIATRIST Signed: 06/28/2023 11:00 REAGAN MÁRQUEZ [place] [facility] [place] [facility] Jun 28, 2023 11:27 AM NUTRITION DIETETICS CONSULT: LOCAL TITLE: CONSULT REPORT/NUTRITION AND INVESTIGATOR WELFARE STANDARD TITLE: NUTRITION DIETETICS CONSULT DATE OF NOTE: JUN 28, 2023@11:27 ENTRY DATE: JUN 28, 2023@11:27:26 AUTHOR: JOHN DAMON COSIGNER: URGENCY: STATUS: COMPLETED Please see nutrition progress note dated 06/23/23. Recommended weight reduction in view of his history of IFG, dyslipidemia, fatty liver, and cardiac isses. Offered more in-depth education on specific food choices that might be helpful, and encouraged regular physical activity. [place] did not express interest in further nutrition education, but stated intention of resuming exercise, which has not been a major part of his life for the past six years due to alcohol abuse. Plan: continue the regular diet until impending discharge outpatient nutrition follow up if is interested -can self refer /brneda/ John Damon RD, LDN Staff Dietitian Signed: 06/28/2023 11:34 [facility] DAMON [facility] Jun 28, 2023 10:05 AM PREVENTIVE MEDICINE NURSING NOTE: LOCAL TITLE: CLINICAL REMINDERS/NURSING STANDARD TITLE: PREVENTIVE MEDICINE NURSING NOTE DATE OF NOTE: JUN 28, 2023@10:05 ENTRY DATE: JUN 28, 2023@10:05:38 AUTHOR: LAURIE CHAVEZ EXP COSIGNER: URGENCY: STATUS: COMPLETED Medication Reconciliation: Discharge JLV Link Data on this list may not be complete. Please check JLV. Allergies/ADRs (Tool #5) FACILITY ALLERGY/ADR -------- No Remote Allergy/ADR Data available for this patient [facility] No Known Allergies Med Recon NoGlossary (Tool #1) INCLUDED IN THIS LIST: Alphabetical list of active outpatient prescriptions dispensed from this [place] (local) and dispensed from another VA or [...] the patient into personal health records (i.e. [employer]) are NOT included in this list. Non-VA medications documented outside this [place], remote inpatient orders (regardless of status) and remote clinic medications are NOT included in this list. The patient and provider must always discuss medications the patient is taking, regardless of where the medication was dispensed or obtained. OUTPT ACAMPROSATE CA 333MG EC TAB (Status = Pending) TAKE TWO TABLETS BY MOUTH THREE TIMES DAILY WITH MEALS Login Date: 06/26/23 Qty/Days Supply: 30 Refills Ordered: 0 INPT ACAMPROSATE CA 333MG EC TAB (Status=Active) 666MG BY MOUTH TID_WITHMEALS Indication: FOR CRAVINGS [facility] ORDER LAST ACTION: 06/28/23 07:47 GIVEN INPT ACETAMINOPHEN 325MG TAB (Status=Active) 650MG BY MOUTH EVERY SIX HOURS NEEDED Indication: FOR PAIN BCMA ORDER LAST ACTION: 06/25/23 20:42 GIVEN OUTPT AMLODIPINE BESYLATE 5MG TAB (Status = Discontinued) TAKE ONE TABLET BY MOUTH ONCE DAILY FOR BLOOD PRESSURE/HEART, DO NOT TAKE WITH GRAPEFRUIT JUICE Rx# [id number] Last Released: 04/24/23 Qty/Days Supply: Rx Expiration Date: 05/07/23 Refills Remainin OUTPT AMLODIPINE BESYLATE 5MG TAB (Status = Active) TAKE ONE TABLET BY MOUTH ONCE DAILY FOR BLOOD PRESSURE, DO NOT TAKE WITH GRAPEFRUIT JUICE Rx# [id number] Last Released: 05/12/23 Qty/Days Supply: Rx Expiration Date: 04/28/24 Refills Remainin Indication: FOR HIGH BLOOD PRESSURE INPT AMLODIPINE BESYLATE 5MG TAB (Status=Active) 5MG BY MOUTH DAILY Indication: FOR HIGH BLOOD PRESSURE BCMA ORDER LAST ACTION: 06/28/23 08:52 GIVEN OUTPT AMPHETAMINE/DEXTROAMPHET 20MG SA CAP (Status = Discontinued) TAKE ONE CAPSULE BY MOUTH ONCE DAILY FOR ADHD WITH HYPERACTIVITY NEXT FILL 04/23/23 Rx# [id number] Last Released: 03/26/23 Qty/Days Supply: Rx Expiration Date: 04/24/23 Refills Remainin Indication: FOR ADHD WITH HYPERACTIVITY OUTPT AMPHETAMINE/DEXTROAMPHET 20MG SA CAP (Status = Discontinued) TAKE ONE CAPSULE BY MOUTH ONCE DAILY FOR ADHD WITH HYPERACTIVITY NEXT FILL 05/24/23 Rx# [id number] Last Released: 04/26/23 Qty/Days Supply: Rx Expiration Date: 05/23/23 Refills Remainin Indication: FOR ADHD WITH HYPERACTIVITY OUTPT AMPHETAMINE/DEXTROAMPHET 20MG SA CAP (Status = ) TAKE ONE CAPSULE BY MOUTH ONCE DAILY FOR ADHD WITH HYPERACTIVITY NEXT FILL 06/21/23 Rx# [id number] Last Released: 05/21/23 Qty/Days Supply: Rx Expiration Date: 06/20/23 Refills Remainin Indication: FOR ADHD WITH HYPERACTIVITY OUTPT APIXABAN 5MG TAB (Status = Discontinued) TAKE ONE TABLET BY MOUTH EVERY 12 HOURS FOR PREVENTION OF BLOOD CLOTS Rx# [id number] Last Released: 04/28/23 Qty/Days Supply: Rx Expiration Date: 05/28/23 Refills Remainin Indication: FOR PREVENTION OF BLOOD CLOTS OUTPT APIXABAN 5MG TAB (Status = Discontinued) TAKE ONE TABLET BY MOUTH EVERY 12 HOURS FOR PREVENTION OF BLOOD CLOTS Rx# [id number] Last Released: 06/04/23 Qty/Days Supply: Rx Expiration Date: 07/04/23 Refills Remainin Indication: FOR PREVENTION OF BLOOD CLOTS OUTPT APIXABAN 5MG TAB (Status = Pending) TAKE ONE TABLET BY MOUTH EVERY 12 HOURS Login Date: 06/26/23 Qty/Days Supply: 60 Refills Ordered: 0 INPT APIXABAN 5MG TAB (Status=Active) 5MG BY MOUTH EVERY TWELVE HOURS Indication: FOR PREVENTION OF BLOOD CLOTS BCMA ORDER LAST ACTION: 06/28/23 08:52 GIVEN Non-VA ASCORBIC ACID 500MG TAB TAKE ONE TABLET BY MOUTH DAILY Patient wants to buy from Non-VA pharmacy. INPT BUPROPION HCL 200MG 12HR SA TAB (Status=Active) 200MG BY MOUTH QDAILY Indication: FOR DEPRESSION BCMA ORDER LAST ACTION: 06/28/23 08:52 GIVEN OUTPT BUPROPION HCL 200MG 12HR SA TAB (Status = Discontinued) TAKE ONE TABLET BY MOUTH ONCE DAILY FOR DEPRESSION Rx# [id number] Last Released: 05/17/23 Qty/Days Supply: 60/60 Rx Expiration Date: 02/02/24 Refills Remainin Indication: FOR DEPRESSION OUTPT BUPROPION HCL 200MG 12HR SA TAB (Status = Pending) TAKE ONE TABLET BY MOUTH ONCE DAILY Login Date: 06/26/23 Qty/Days Supply: Refills Ordered: 0 OUTPT CICLOPIROX 8% TOP SOLN (Status = Active) APPLY SMALL AMOUNT TOPICALLY ONCE DAILY WIPE OFF WITH ALCOHOL EVERY 7 DAYS; MAX USE 12 MONTHS Rx# [id number] Last Released: 12/18/22 Qty/Days Supply: Rx Expiration Date: 10/15/23 Refills Remainin Indication: FOR FUNGAL DISEASE OF THE NAILS INPT CICLOPIROX 8% TOP SOLN (Status=Active) SMALL AMOUNT TOP DAILY wipe off with alcohol every 7days; max use 12mos Indication: FOR FUNGAL DISEASE OF THE NAILS BCMA ORDER LAST ACTION: 06/28/23 08:54 GIVEN Non-VA FISH OIL 1000MG (500MG DHA/EPA) CAP TAKE 1 CAPSULE BY MOUTH DAILY Patient wants to buy from Non-[place] pharmacy. OUTPT FLUOCINONIDE 0.05% CREAM (Status = ) APPLY A SMALL AMOUNT TOPICALLY ONCE DAILY FOR PALMAR PSORIATIC LESIONS Rx# [id number] Last Released: 03/31/23 Qty/Days Supply: 60/90 Rx Expiration Date: 06/24/23 Refills Remainin Indication: FOR PALMAR PSORIATIC LESIONS OUTPT FOLIC ACID 1MG TAB (Status = Pending) TAKE ONE TABLET BY MOUTH ONCE DAILY vitamin/nutrition supplement Login Date: 06/26/23 Qty/Days Supply: Refills Ordered: 0 INPT FOLIC ACID 1MG TAB (Status=Active) 1MG BY MOUTH DAILY Indication: FOR ANEMIA FROM INADEQUATE FOLIC ACID BCMA ORDER LAST ACTION: 06/28/23 08:52 GIVEN Non-VA HOMA CAP/TAB TAKE DOSE UNKNOWN BY MOUTH ONCE DAILY Patient wants to buy from Non-VA pharmacy. OUTPT LISINOPRIL 10MG TAB (Status = Discontinued) TAKE ONE TABLET BY MOUTH ONCE DAILY TO CONTROL BLOOD PRESSURE Rx# [id number] Last Released: 02/18/23 Qty/Days Supply: 90/90 Rx Expiration Date: 11/20/23 Refills Remainin OUTPT LISINOPRIL 10MG TAB (Status = Active/Suspended) TAKE ONE TABLET BY MOUTH ONCE DAILY TO CONTROL BLOOD PRESSURE Rx# [id number] Last Released: 05/17/23 Qty/Days Supply: 90/90 Rx Expiration Date: 05/14/24 Refills Remainin INPT LISINOPRIL 10MG TAB (Status=Active) 10MG BY MOUTH DAILY Indication: FOR HIGH BLOOD PRESSURE BCMA ORDER LAST ACTION: 06/28/23 08:52 GIVEN OUTPT METOPROLOL SUCCINATE 25MG SA TAB (Status = Discontinued) TAKE TWO TABLETS BY MOUTH AT BEDTIME FOR BLOOD PRESSURE/HEART Rx# [id number] Last Released: 04/28/23 Qty/Days Supply: 60/30 Rx Expiration Date: 05/28/23 Refills Remainin OUTPT METOPROLOL SUCCINATE 25MG SA TAB (Status = Discontinued) TAKE TWO TABLETS BY MOUTH AT BEDTIME FOR BLOOD PRESSURE/HEART Rx# [id number] Last Released: 05/17/23 Qty/Days Supply: 60/30 Rx Expiration Date: 06/13/23 Refills Remainin OUTPT METOPROLOL SUCCINATE 50MG SA TAB (Status = Active) TAKE ONE TABLET BY MOUTH AT BEDTIME FOR HIGH BLOOD PRESSURE (NOTE DOSE) Rx# [id number] Last Released: 05/28/23 Qty/Days Supply: 9090 Rx Expiration Date: 05/27/24 Refills Remainin Indication: FOR HIGH BLOOD PRESSURE INPT METOPROLOL SUCCINATE 50MG SA TAB (Status=Active) 50MG BY MOUTH AT BEDTIME Indication: FOR HIGH BLOOD PRESSURE BCMA ORDER LAST ACTION: 06/27/23 21:05 GIVEN OUTPT MOISTURIZING LOTION (Status = Active) APPLY LIBERAL AMOUNT TOPICALLY ONCE DAILY NEEDED FOR DRY SKIN Rx# [id number] Last Released: 03/27/23 Qty/Days Supply: 480/90 Rx Expiration Date: 10/07/23 Refills Remainin Indication: FOR DRY SKIN Non-VA MULTIVITAMIN CAP/TAB TAKE ONE TABLET BY MOUTH ONCE DAILY Patient wants to buy from Non-VA pharmacy. INPT MULTIVITAMIN/MINERALS CAP/TAB (Status=Active) ONE CAP/TAB BY MOUTH DAILY LEO Indication: FOR VITAMINS BCMA ORDER LAST ACTION: 06/28/23 08:52 GIVEN OUTPT MULTIVITAMIN/MINERALS CAP/TAB (Status = Pending) TAKE ONE CAP/TAB BY MOUTH ONCE DAILY LEO Login Date: 06/26/23 Qty/Days Supply: 3030 Refills Ordered: 0 INPT NALOXONE HCL 4MG/SPRAY SOLN NASAL SPRAY (Status=Active) 1 SPRAY ONOS ONE TIME NEEDED may repeat after two minutes for continued or recurrent hypoventilation or somnolence Indication: FOR OPIOID OVERDOSE OUTPT NALOXONE HCL 4MG/SPRAY SOLN NASAL SPRAY (Status = Pending) INSTILL 1 SPRAY ONE NOSTRIL ONE TIME NEEDED CALL 911 WITH ADMINISTRATION. REPEAT WITH SECOND DEVICE IF SYMPTOMS RETURN Login Date: 06/26/23 Qty/Days Supply: Refills Ordered: 0 Non-VA OTHER CAP/TAB TAKE MEDIUM CHAIN TRIGLYCERIDES BY MOUTH ONCE DAILY Patient wants to buy from Non-VA pharmacy. Non-VA OTHER CAP/TAB TAKE PLANT PROTEIN BY MOUTH ONCE DAILY Patient wants to buy from Non-VA pharmacy. OUTPT SUNSCREEN 30-50/AVOBENZONE/PABA-F LOTION (Status = Active) APPLY A LIBERAL AMOUNT TOPICALLY NEEDED TO PREVENT SUNBURN Rx# [id number] Last Released: 04/01/23 Qty/Days Supply: 480/90 Rx Expiration Date: 10/07/23 Refills Remainin Indication: TO PREVENT SUNBURN OUTPT SUNSCREEN 30-50/PHY BLOCK/PABA-F FACE CR (Status = Discontinued) APPLY A LIBERAL AMOUNT TOPICALLY NEEDED TO PREVENT SUNBURN Rx# [id number] Last Released: 10/08/22 Qty/Days Supply: 360/90 Rx Expiration Date: 10/07/23 Refills Remainin Indication: TO PREVENT SUNBURN OUTPT THIAMINE 100MG TAB (Status = Pending) TAKE TWO TABLETS BY MOUTH ONCE DAILY Login Date: 06/26/23 Qty/Days Supply: 60/30 Refills Ordered: 0 INPT THIAMINE 100MG TAB (Status=Active) 200MG BY MOUTH DAILY Indication: FOR DEFICIENCY IN THIAMINE OR VITAMIN B1 BCMA ORDER LAST ACTION: 06/28/23 08:52 GIVEN Non-VA ZINC 50MG (FROM SULFATE) CAP TAKE 1 CAPSULE BY MOUTH DAILY Patient wants to buy from Non-VA pharmacy. SUPPLIES OUTPT MED ORGANIZER 7D SLOT APEX#[id number] (Status = Pending) SLOT APEX#[id number] USE 1 ORGANIZER DIRECTED ONCE DAILY Login Date: 06/26/23 Qty/Days Supply: Refills Ordered: 0 On patient discharge, the following medication changes were made: Medications discontinued: Enter each medication (with dose and frequency) on separate lines: Noted above Medications changed: Enter each medication (with dose and frequency) on separate lines: Noted above New Medications: Enter each medication (with dose and frequency) on separate lines: Noted above /brenda/ LAURIE CHAVEZ RN BSN STAFF NURSE Signed: 06/28/2023 10:08 LAURIE CHAVEZ [place] [facility] [place] [facility] Jun 28, 2023 09:47 AM NURSING DISCHARGE NOTE: LOCAL TITLE: NURSE/DISCHARGE NOTE(T) STANDARD TITLE: NURSING DISCHARGE NOTE DATE OF NOTE: JUN 28, 2023@09:47 ENTRY DATE: JUN 28, 2023@09:47:58 AUTHOR: LAURIE CHAVEZ EXP COSIGNER: URGENCY: STATUS: COMPLETED NURSING/DISCHARGE OVERPRINTED NOTE(T) Previous Vitals: Temperature: 97.4 F [36.3 C] (06/28/2023 08:26) Pulse: 63 (06/28/2023 08:26) Respiration: 16 (06/28/2023 08:26) Blood Pressure: 110/75 (06/28/2023 08:26) Height: 74 in [188.0 cm] (03/26/2023 13:12) Weight: 225.8 lb [102.42 kg] (06/21/2023 15:12) Allergies:Patient has answered NKA Active Medications:Active Inpatient Medications (including Supplies): Active Inpatient Medications [...] THIAMINE HCL TAB 200MG PO DAILY ACTIVE MEDICAL RECORD - NURSE'S DISCHARGE NOTE DATE 06/27/23 TYPE Regular DESTINATION [address] [place] [address] [place] [address] [place] CONDITION: Vet initially admitted for stabilization reasons due to exacerbating PSTD and etoh detox symptomatology. See CPRS/initial assessment and nursing assessment for admitting condition/behavior. Throughout stay, Ruth was compliant, active to all aspects of treatment, and used the program well. As treatment progressed, Ruth became less agitated and anxious. As mood improved he began to focus better and became more outgoing. Today, Enedinat well stabilized with appropriate mood and behavior. NCP was effective CAPACITY FOR PERFORMING ADL: Fully independent and adequate MENTAL STATUS:MENTAL STATUS: Alert, lucid and well oriented. He voiced: satisfaction/gains from program , feeling better and readiness for discharge. Enedinat denies any suicidal or homicidal ideation. There is no evidence of psychotic behavior. ANY PHYSICAL DISABILITIES OR ALLERGIES: No Known allegies MEDICATION:Enedinat demonstrated understanding of all current medication orders. He has been instructed to dispose of all and discontinued medications in his possession. FAMILY OR SIGNIFICANT OTHER INVOLVEMENT:YES PATIENT TEACHING:Beaverdam instructed on prescribed medications, doses, and proper administration. PATIENT OR SIGNIFICANT OTHER IS ABLE TO VERBALIZE SIGNS AND SYMPTOMS, AND WHEN AND WHERE TO SEEK HELP. YES [x] NO [] PATIENT OR SIGNIFICANT OTHER UNDERSTANDS AND VERBALIZES NEED FOR TAKING MEDS, ALSO SIDE EFFECTS AND ADVERSE REACTIONS. YES [x] NO [] CLEARANCE SHEET COMPLETED: YES [x] NO [] OUTPATIENT FOLLOW-UP: 07/05/2023 14:30 [facility]HC/BALJINDER 07/07/2023 09:15 [facility]-CARDIOLOGY 07/12/2023 13:00 NHM/MHC/BALJINDER 07/16/2023 15:00 CWM/NO/MHC/EDWARDO 07/23/2023 15:30 NHM/MHC/BALJINDER 08/27/2023 11:30 [facility]/OPTOMETRY/JOSE CRUZI IF NO APPOINTMENTS ARE SCHEDULED, DOES THE PATIENT KNOW WHERE TO OBTAIN FURTHER TREATMENT? YES [x] NO [] Immunizations Status for Influenza and Pneumovac: [facility] record - No INFLUENZA Immunizations on file within 1Y. Have they been immunized by other VA or non-VA source? ( x) Yes ( ) No If so when? INFLUENZA, UNSPECIFIED FORMULATI* 03/26/2023 [place]* <I> INFLUENZA, UNSPECIFIED FORMULATI* 01/13/2023 [place] <I> INFLUENZA, UNSPECIFIED FORMULATI* 05/06/2022 [place] <I> All veterans should be encouraged to be immunized with the influenza vaccine every year. [facility] record - No PNEUMO-VAC Immunizations on file within 10Y. Have they been immunized by other VA or non-VA source? ( x) Yes ( ) No If so when? PNEUMOCOCCAL POLYSACCHARIDE PPV23 01/18/2017 [place]* PNEUMOCOCCAL CONJUGATE, UNSPECIF* 10/06/2022 [place] <I> PNEUMOCOCCAL CONJUGATE, UNSPECIF* 05/06/2022 [place]* <I> Vets should be strongly encouraged to be immunized prior to discharge. /brenda/ LAURIE CHAVEZ RN BSN STAFF NURSE Signed: 06/28/2023 10:05 LAURIE CHAVEZ [facility] Jun 28, 2023 08:55 AM NURSING NOTE: LOCAL TITLE: NURSING NOTE STANDARD TITLE: NURSING NOTE DATE OF NOTE: JUN 28, 2023@08:55 ENTRY DATE: JUN 28, 2023@08:55:37 AUTHOR: WING RONDON COSIGNER: URGENCY: STATUS: COMPLETED SUBJECT: MORNING MEETING Beaverdam attended and participated in Morning Group. Beaverdam states he's discharging Today and has no issues. /brenda/ WING RONDON Sand Filler Signed: 06/28/2023 08:58 [facility] Jun 28, 2023 07:30 AM NURSING INPATIENT NOTE: LOCAL TITLE: NURSING/BEHAVIORAL NOTE STANDARD TITLE: NURSING INPATIENT NOTE DATE OF NOTE: JUN 28, 2023@07:30 ENTRY DATE: JUN 28, 2023@03:38:42 AUTHOR: NARCISA LOVE COSIGNER: URGENCY: STATUS: COMPLETED DEFINITIONS FOR FOCUS CHARTING FOCUS - Topic of note, based on change in condition, significant event or compliance with standards. DATA - Subjective or objective information supporting the focus. ACTION - Past, present or future nursing interventions. RESPONSE - Patient's response to nursing care. Previous Vitals: Temperature: 97.5 F [36.4 C] (06/27/2023 16:00) Pulse: 62 (06/27/2023 16:00) Respiration: 16 (06/27/2023 16:00) Blood Pressure: 130/89 (06/27/2023 16:00) Height: 74 in [188.0 cm] (03/26/2023 13:12) Weight: 225.8 lb [102.42 kg] (06/21/2023 15:12) Allergies: Patient has answered NKA Active Medications: F:Ineffective individual coping r/t alcohol use disorder. D:67 y/o slept through the night. Upon getting out of bed, he was visible in the dayroom watching TV and using the computer. was socializing with select peers. Beaverdam is able make his needs known. ate 100% of breakfast. is adhering to scheduled medication. Beaverdam maintained safety in the unit and did not verbalize any SI or HI A:Continue to encourage to utilize appropriate coping skills and comply with treatment plan, encourage medication compliance. Continue to monitor for safety and assess mental status, mood and behavior with continuous rounding and q 15 minute safety checks. R:As above. /brenda/ SHELDON LOVE REGISTERED NURSE Signed: 06/28/2023 07:35 Gina LOVE [place] [facility] [place] [facility] Jun 27, 2023 10:28 PM NURSING INPATIENT NOTE: LOCAL TITLE: NURSING/BEHAVIORAL NOTE STANDARD TITLE: NURSING INPATIENT NOTE DATE OF NOTE: JUN 27, 2023@22:28 ENTRY DATE: JUN 27, 2023@22:28:58 AUTHOR: PAULETTE JAQUEZ COSIGNER: URGENCY: STATUS: COMPLETED DEFINITIONS FOR FOCUS CHARTING FOCUS - Topic of note, based on change in condition, significant event or compliance with standards. DATA - Subjective or objective information supporting the focus. ACTION - Past, present or future nursing interventions. RESPONSE - Patient's response to nursing care. Previous Vitals: Temperature: 97.5 F [36.4 C] (06/27/2023 16:00) Pulse: 62 (06/27/2023 16:00) Respiration: 16 (06/27/2023 16:00) Blood Pressure: 130/89 (06/27/2023 16:00) Height: 74 in [188.0 cm] (03/26/2023 13:12) Weight: 225.8 lb. [102.42 kg] (06/21/2023 15:12) Allergies: Patient has answered NKA Active Medications: F: Ineffective individual coping r/t alcohol use disorder D: Betty is visible in milieu throughout the shift, socializing with peers and working on a puzzle. He presents with a bright affect and positive mood. He demonstrates a strong connection with his peers on the unit. He reports feeling good and is looking forward to going home tomorrow to attend to all the things I have to do and to seeing my family. But I know I'm not done! I'm coming back for treatment. expresses confidence in his commitment to recovery and continuing FRANCISCO treatment. Beaverdam is future oriented, and has not voiced any safety concerns to this information writer. A: Nursing will continue to monitor and assess 's vital signs, mood, affect, behaviors, and health according to treatment plan of care, medicate per orders, and perform appropriate nursing interventions. Continue with Q15 minute safety checks and continuous rounding for safety. R: See above for 's behavior and response to treatment as observed by this information writer during this evening's shift. /brenda/ PAULETTE JAQUEZ RN, [facility] Registered Nurse Signed: 06/27/2023 22:34 [facility]TTE [facility] Jun 27, 2023 01:44 PM NURSING INPATIENT NOTE: LOCAL TITLE: NURSING/BEHAVIORAL NOTE STANDARD TITLE: NURSING INPATIENT NOTE DATE OF NOTE: JUN 27, 2023@13:44 ENTRY DATE: JUN 27, 2023@13:44:38 AUTHOR: YASMANY DECKER COSIGNER: URGENCY: STATUS: COMPLETED DEFINITIONS FOR FOCUS CHARTING FOCUS - Topic of note, based on change in condition, significant event or compliance with standards. DATA - Subjective or objective information supporting the focus. ACTION - Past, present or future nursing interventions. RESPONSE - Patient's response to nursing care. Previous Vitals: Temperature: 97.7 F [36.5 C] (06/27/2023 08:28) Pulse: 66 (06/27/2023 08:28) Respiration: 16 (06/27/2023 08:28) Blood Pressure: 111/77 (06/27/2023 08:28) Height: 74 in [188.0 cm] (03/26/2023 13:12) Weight: 225.8 lb [102.42 kg] (06/21/2023 15:12) Allergies: Patient has answered NKA Active Medications: F:Inneffective, individual coping r/t Alcohol Use Disorder D:67 year old male was visible all morning [...] when the topic is raised by this information writer. A:Will continue to monitor for changes in mental status, mood and behaviors, by observation during continuous rounding every 15 minutes to ensure safety was performed. In addition, to provide support and encouragement to to utilize coping skills and be receptive to medication education in order to improve outcomes and prepare for discharge. Vet will verbalize their understanding. R:as above /brenda/ YASMANY DECKER RN Registered Nurse Signed: 06/27/2023 13:55 YASMANY DECKER [place] [facility] [place] [facility] Jun 27, 2023 09:11 AM PSYCHIATRY INPATIENT NOTE: LOCAL TITLE: INPATIENT PSYCHIATRY NOTE(T) STANDARD TITLE: PSYCHIATRY INPATIENT NOTE DATE OF NOTE: JUN 27, 2023@09:11 ENTRY DATE: JUN 27, 2023@09:11:29 AUTHOR: NATHAN SALDAÑAIGNRICHARD: URGENCY: STATUS: COMPLETED Patient Name: NATHAN MURPHY SSN: [id number] Current Admission: May 17:57 Active Medications: Active Inpatient Medications (including Supplies): Active Inpatient [...] THIAMINE HCL TAB 200MG PO DAILY ACTIVE NOTE: 67 yr old male admitted with major depression, alcohol dependence, suicidal ideation associated with alcohol related disorder, comorbid cardiac concerns being addressed, currently maintained on bupropion with good response. Also has ADHD and has been treated with Adderall to be resumed at a later point Interval History: No issues identified Mood is improving. Energy is good, motivation improving. Notes completed a puzzle of a [place]. Slept okay, at baseline Appetite is good. Objective: Appearance: good eye contact Behavior: calm Speech: fluent Mood: denies depression Affect:expressive Thoughts: organized, logical, goal directed Thought content, no delusions, no hallucinations, no flashbacks Suicidal ideation:none Suicidal content:none Aggressive/Homicidal ideation: none Orientation, oriented x 3 Attention: intact, Memory:intact Language:conversational Insight:intact Judgement:intact Data: Assessment: Depression continues to stabilize No suicidal ideas. Adhd, off medication presently Plan: Continue bupropion, campral Stimulant on hold. Ongoing longitudinal symptomatic and diagnostic assessment Mileu and group treatments Discharge planning likely at noon tomorrow. Justification for admission/continued admission (select all that apply) [ ][MILAD] Has active symptoms of milad/hypomania. [ ][HYGIENE] cannot maintain his personal hygiene due to current mental health condition. [ ][PSYCHOSIS] Beaverdam expresses ongoing positive symptoms of psychosis. [ ][PTSD] Beaverdam's hypervigilant/avoidant symptoms of PTSD continue to interfere with ability to engage in care and participate in group programing. [ ][AGITATION] Beaverdam continues to exhibit symptoms of psychomotor agitation to which staff must respond and intervene. [ ][PARANOIA] Beaverdam has symptoms of extreme paranoia. [ ][PANIC ATTACK] Team members have seen panic attacks to the extreme they are inhibiting 's ability to participate in care/groups. [ x][NEGOTIATE NEEDS] 's cannot adequately get his needs met effectively due to his current mental health condition. [ ][APPETITE] Beaverdam has been refusing to eat/drink. [ ][SUICIDAL] Beaverdam reports feeling suicidal with intent and/or plan. [ ][DELUSIONS] has expressed delusions related to persecution. [ ][THREATENING] Beaverdam has been showing symptoms of being assaultive or threatening towards others. [ ][OCD] Team has seen obsessive/compulsive symptoms which have prevented the from engaging in care/groups. [ ][SELF-INJURY] Has [...] others). [ ][CONFUSION] Has recently become disoriented. /brenda/ NATHAN SALDAÑA MD PSYCHIATRIST Signed: 06/27/2023 12:10 NATHAN SALDAÑA [facility] [place] [facility] Jun 27, 2023 07:00 AM NURSING INPATIENT NOTE: LOCAL TITLE: NURSING/BEHAVIORAL NOTE STANDARD TITLE: NURSING INPATIENT NOTE DATE OF NOTE: JUN 27, 2023@07:00 ENTRY DATE: JUN 27, 2023@10:23:58 AUTHOR: GILDA CUBA EXP COSIGNER: URGENCY: STATUS: COMPLETED DEFINITIONS FOR FOCUS CHARTING FOCUS - Topic of note, based on change in condition, significant event or compliance with standards. DATA - Subjective or objective information supporting the focus. ACTION - Past, present or future nursing interventions. RESPONSE - Patient's response to nursing care. Previous Vitals: Temperature: 97.7 F [36.5 C] (06/27/2023 08:28) Pulse: 66 (06/27/2023 08:28) Respiration: 16 (06/27/2023 08:28) Blood Pressure: 111/77 (06/27/2023 08:28) Height: 74 in [188.0 cm] (03/26/2023 13:12) Weight: 225.8 lb [102.42 kg] (06/21/2023 15:12) Allergies: Patient has answered NKA Active Medications: F:Ineffective Coping Individual r/t Alcohol use disorder D:67 y/o was noted sleeping in bed throughout the shift. No sleep disturbance noted. reported poor sleep. Beaverdam was up 06:00 was noted in the day [place] watching TV. ate breakfast and is adhering to scheduled medication. maintained safety in the unit and did not verbalize any SI or HI. A: Continue to encourage to utilize coping skills and compliance with treatment plan encourages medication compliance. Continue to monitor for safety and assess mental status, mood and behavior with continuous rounding and q15 minute safety checks. Encourage to communicate their needs to staff and provide information to Nursing staff to best care for their needs. All safety precautions in place. R: As above /brenda/ GILDA CUBA BSN REGISTERED NURSE Signed: 06/27/2023 10:35 BEAN CUBA [facility] Jun 26, 2023 11:52 PM NURSING GROUP COUNSELING NOTE: LOCAL TITLE: NURSING GROUPS STANDARD TITLE: NURSING GROUP COUNSELING NOTE DATE OF NOTE: JUN 26, 2023@23:52 ENTRY DATE: JUN 26, 2023@23:53:07 AUTHOR: PAULETTE JAQUEZ EXP COSIGNER: URGENCY: STATUS: COMPLETED Evening Group: Focus & Practice Topic: Useful Lists. Content: Presentation, group discussion, individual reflection, practice, and journaling Total duration: approximately 60 minutes The personal security specialist introduced list-writing as an effective tool that Veterans can practice immediately with positive rewards and improved wellbeing. Lists can help with productivity, anxiety, goal setting, prioritization, accountability, organization, self-discovery, and more. The personal security specialist taught basic concepts about the topic, provided examples, and presented questions for further thought and discussion. Each participant was given a handout / worksheet with additional information; prompts for reflection and practice; and areas for notes. Participants were attentive and appropriate during the group section. Veterans were observed filling in the worksheets and several examples of Veterans discussing the topic with peers and staff were noted during the evening. /brenda/ PAULETTE JAQUEZ RN, [facility] Registered Nurse Signed: 06/26/2023 23:53 PAULETTE JAQUEZ [facility] Jun 26, 2023 09:27 PM NURSING INPATIENT NOTE: LOCAL TITLE: NURSING/BEHAVIORAL NOTE STANDARD TITLE: NURSING INPATIENT NOTE DATE OF NOTE: JUN 26, 2023@21:27 ENTRY DATE: JUN 26, 2023@21:29:41 AUTHOR: YASMANY DECKER EXP COSIGNER: URGENCY: STATUS: COMPLETED DEFINITIONS FOR FOCUS CHARTING FOCUS - Topic of note, based on change in condition, significant event or compliance with standards. DATA - Subjective or objective information supporting the focus. ACTION - Past, present or future nursing interventions. RESPONSE - Patient's response to nursing care. Previous Vitals: Temperature: 97.9 F [36.6 C] (06/26/2023 16:45) Pulse: 66 (06/26/2023 16:45) Respiration: 17 (06/26/2023 16:45) Blood Pressure: 125/91 (06/26/2023 16:45) Height: 74 in [188.0 cm] (03/26/2023 13:12) Weight: 225.8 lb [102.42 kg] (06/21/2023 15:12) Allergies: Patient has answered NKA Active Medications: F:Inneffective, individual coping r/t Schizoaffective Disorder D:67 year old male has been visible all shift, sitting in the dining area talking with a selective peers; he also attended phone group. He presents with a broad range of mood and congruent affect, continues to report feeling better every day and states, I'm really excited about getting out of here and being back with my family and my people...my social group worker's worried about it and she's probably right, I may need more outside professional support, groups etc... I know I'm going to need to buy a lot of ice cream bars so that I have things to eat while I watch TV in the evenings, instead of sipping on alcohol which is my habit.. . Vet is pleasant and cooperative with care and medications and stayed up late talking. A:Will continue to monitor for changes in mental status, mood and behaviors, by observation during continuous rounding every 15 minutes to ensure safety was performed. In addition, to provide support and encouragement to to utilize coping skills and be receptive to medication education in order to improve outcomes and prepare for discharge. Vet will verbalize their understanding. R:As above /brenda/ YASMANY DECKER RN Registered Nurse Signed: 06/26/2023 22:55 YASMANY DECKER [facility] [place] [facility] Jun 26, 2023 03:40 PM NURSING INPATIENT NOTE: LOCAL TITLE: NURSING/BEHAVIORAL NOTE STANDARD TITLE: NURSING INPATIENT NOTE DATE OF NOTE: JUN 26, 2023@15:40 ENTRY DATE: JUN 26, 2023@12:59:21 AUTHOR: NARCISA LOVE COSIGNER: URGENCY: STATUS: COMPLETED DEFINITIONS FOR FOCUS CHARTING FOCUS - Topic of note, based on change in condition, significant event or compliance with standards. DATA - Subjective or objective information supporting the focus. ACTION - Past, present or future nursing interventions. RESPONSE - Patient's response to nursing care. Previous Vitals: Temperature: 97.3 F [36.3 C] (06/26/2023 06:27) Pulse: 64 (06/26/2023 06:27) Respiration: 16 (06/26/2023 06:27) Blood Pressure: 115/76 (06/26/2023 06:27) Height: 74 in [188.0 cm] (03/26/2023 13:12) Weight: 225.8 lb [102.42 kg] (06/21/2023 15:12) Allergies: Patient has answered NKA Active Medications: F:Ineffective individual coping r/t alcohol use disorder. D: is 67-year-old male who is been monitored every shift for alcohol withdrawal symptoms using CIWA assessment scale. Beaverdam was visible on the unit, interacting with staff and peers. Beaverdam calm and pleasant. Beaverdam denies any withdrawal symptoms. watched television and socialized with peers. Beaverdam attended afternoon group. Compliant with medication. VS unremarkable. Not voicing any thoughts of harm to self or others. Maintaining safe behavior on the unit. A:Continue to assess alcohol withdrawal with CIWA per protocol. Continue to provide a safe and therapeutic environment and encourage to utilize appropriate coping skills. Continue to encourage compliance with medication and individualized treatment plan. Continue to monitor for safety and assess mental status, mood and behavior with continuous rounding and safety checks R: As above /brenda/ SHELDON LOVE REGISTERED NURSE Signed: 06/26/2023 15:42 Gina LOVE [place] [facility] [place] [facility] Jun 26, 2023 09:49 AM NURSING INPATIENT NOTE: LOCAL TITLE: NURSING/BEHAVIORAL NOTE STANDARD TITLE: NURSING INPATIENT NOTE DATE OF NOTE: JUN 26, 2023@09:49 ENTRY DATE: JUN 26, 2023@09:49:58 AUTHOR: KRISTAL GUERRA COSIGNER: URGENCY: STATUS: COMPLETED DEFINITIONS FOR FOCUS CHARTING FOCUS - Topic of note, based on change in condition, significant event or compliance with standards. DATA - Subjective or objective information supporting the focus. ACTION - Past, present or future nursing interventions. RESPONSE - Patient's response to nursing care. Previous Vitals: Temperature: 97.3 F [36.3 C] (06/26/2023 06:27) Pulse: 64 (06/26/2023 06:27) Respiration: 16 (06/26/2023 06:27) Blood Pressure: 115/76 (06/26/2023 06:27) Height: 74 in [188.0 cm] (03/26/2023 13:12) Weight: 225.8 lb [102.42 kg] (06/21/2023 15:12) Allergies: Patient has answered NKA Active Medications: F: Ineffective Individual Coping r/t ETOH Use Disorder D: 67 yo who has been present in dayroom. He is social with peers and staff. He has been working on a [employer] puzzle. His sleep and appetite are good. Beaverdam remains safe on unit and has not verbalized any thoughts of harming self or others. A: Monitor for ETOH withdrawal using the CIWA-AR scale; monitor vital signs, medicate as needed and encourage fluids. Assess for changes in mood and behaviors, and continue q15min safety checks with continuous rounding. R: As above /brenda/ JEFFERSON OVALLE, TELEGRAPH AND TELETYPE OPERATOR NURSE Signed: 06/26/2023 14:00 KRISTAL GUERRA [facility] [place] [facility] Jun 26, 2023 08:40 AM PSYCHIATRY INPATIENT NOTE: LOCAL TITLE: INPATIENT PSYCHIATRY NOTE(T) STANDARD TITLE: PSYCHIATRY INPATIENT NOTE DATE OF NOTE: JUN 26, 2023@08:40 ENTRY DATE: JUN 26, 2023@08:40:25 AUTHOR: NATHAN SALDAÑA COSIGNER: URGENCY: STATUS: COMPLETED Patient Name: NATHAN MURPHY SSN: [id number] Current Admission: May 17:57 Active Medications: Active Inpatient Medications (including Supplies): Active Inpatient [...] THIAMINE HCL TAB 200MG PO DAILY ACTIVE NOTE: 67 yr old male admitted with major depression, alcohol dependence, suicidal ideation associated with alcohol related disorder, comorbid cardiac concerns being addressed, currently maintained on bupropion with good response. Also has ADHD and has been treated with Adderall to be resumed at a later point Interval History:Reviewed with nursing, no issues, doing well Much better since beginning of the week, outlook, mood are markedly improved. Energy is intact. No cardiac symptoms. Off adderall for about 2 weeks, sometimes i need it, sometimes i don't feels does not need it now. Carson would like to leave on Wednesday, if possible, works at [employer]. Works at [employer], carson is quite busy. Notes with regards to alcohol, does not tolerate naltrexone. BP is within normal range and fine times 2 today. Objective: Appearance: good eye contact Behavior: calm Speech: fluent Mood: denies depression Affect:expressive Thoughts: organized, logical, goal directed Thought content, no delusions, no hallucinations, no flashbacks Suicidal ideation:none Suicidal content:none Aggressive/Homicidal ideation: none Orientation, oriented x 3 Attention: intact, Memory:intact Language:conversational Insight:intact Judgement:intact Data: Assessment: Major depression improved ADHD by history. Alcohol use disorder Plan: No change in regimen, depression is stabilizing and likely dc early next week. Ongoing longitudinal symptomatic and diagnostic assessment Mileu and group treatments Discharge planning. Justification for admission/continued admission (select all that apply) [ ][MILAD] Has active symptoms of milad/hypomania. [ ][HYGIENE] Beaverdam cannot maintain his personal hygiene due to current mental health condition. [ ][PSYCHOSIS] Beaverdam expresses ongoing positive symptoms of psychosis. [ ][PTSD] Beaverdam's hypervigilant/avoidant symptoms of PTSD continue to interfere with ability to engage in care and participate in group programing. [ ][AGITATION] continues to exhibit symptoms of psychomotor agitation to which staff must respond and intervene. [ ][PARANOIA] has symptoms of extreme paranoia. [ ][PANIC ATTACK] Team members have seen panic attacks to the extreme they are inhibiting 's ability to participate in care/groups. [ x][NEGOTIATE NEEDS] 's cannot adequately get his needs met effectively due to his current mental health condition. [ ][APPETITE] has been refusing to eat/drink. [ ][SUICIDAL] reports feeling suicidal with intent and/or plan. [ ][DELUSIONS] Beaverdam has expressed delusions related to persecution. [ ][THREATENING] has been showing symptoms of being assaultive or threatening towards others. [ ][OCD] Team has seen obsessive/compulsive symptoms which have prevented the Beaverdam from engaging in care/groups. [ ][SELF-INJURY] Has engaged in escalating self-injury. [ ][HOMICIDE] Has expressed homicidal thoughts with intent and/or plan. [ ][DESTROY] Has destroyed things on the unit. [ ][MENTAL STATUS CHANGE] Beaverdam has had a mental status changed with symptoms of confusion and/or decreased energy. [ ][COMMAND AH] Has been reporting command auditory hallucinations to harm himself (and/or others). [ ][CONFUSION] Has recently become disoriented. /es/ NATHAN SALDAÑA MD PSYCHIATRIST Signed: 06/26/2023 13:35 NATHAN SALDAÑA [facility] [place] [facility] Jun 25, 2023 11:30 PM NURSING INPATIENT NOTE: LOCAL TITLE: NURSING/BEHAVIORAL NOTE STANDARD TITLE: NURSING INPATIENT NOTE DATE OF NOTE: JUN 25, 2023@23:30 ENTRY DATE: JUN 25, 2023@23:30:29 AUTHOR: CECILE NIETO COSIGNER: URGENCY: STATUS: COMPLETED DEFINITIONS FOR FOCUS CHARTING FOCUS - Topic of note, based on change in condition, significant event or compliance with standards. DATA - Subjective or objective information supporting the focus. ACTION - Past, present or future nursing interventions. RESPONSE - Patient's response to nursing care. Previous Vitals: Temperature: 97.2 F [36.2 C] (06/25/2023 19:30) Pulse: 66 (06/25/2023 19:30) Respiration: 18 (06/25/2023 19:30) Blood Pressure: 128/88 (06/25/2023 19:30) Height: 74 in [188.0 cm] (03/26/2023 13:12) Weight: 225.8 lb [102.42 kg] (06/21/2023 15:12) Allergies: Patient has answered NKA Active Medications: F: Ineffective Individual Coping r/t ETOH Use Disorder D: 67 year old was visible on unit all shift. He was social with peers and staff and noted to be in a great mood. Beaverdam reported is going home on Wednesday stating he misses home and work. He ate supper and intake noted 100%. remains safe on unit and has not verbalized any thoughts of harming self or others A: Monitor for ETOH withdrawal using the CIWA-AR scale; monitor vital signs, medicate as needed and encourage fluids. Assess for changes in mood and behaviors, and continue q15min safety checks with continuous rounding. R: As above /brenda/ CECILE NIETO BSN, RN REGISTERED NURSE Signed: 06/25/2023 23:32 CECILE NIETO [place] [facility] [place] [facility] Jun 25, 2023 12:31 PM NURSING INPATIENT NOTE: LOCAL TITLE: NURSING/BEHAVIORAL NOTE STANDARD TITLE: NURSING INPATIENT NOTE DATE OF NOTE: JUN 25, 2023@12:31 ENTRY DATE: JUN 25, 2023@12:31:26 AUTHOR: LAURIE CHAVEZ EXP COSIGNER: URGENCY: STATUS: COMPLETED DEFINITIONS FOR FOCUS CHARTING FOCUS - Topic of note, based on change in condition, significant event or compliance with standards. DATA - Subjective or objective information supporting the focus. ACTION - Past, present or future nursing interventions. RESPONSE - Patient's response to nursing care. Previous Vitals: Temperature: 97.7 F [36.5 C] (06/25/2023 08:40) Pulse: 63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 interest in anything specific /brenda/ John Damon RD, LDN Staff Dietitian Signed: 06/24/2023 16:07 JOHN DAMON [place] [facility] Jun 24, 2023 12:02 PM MENTAL HEALTH DIAGNOSTIC STUDY NOTE: LOCAL TITLE: [facility] NURSING NOTE STANDARD TITLE: MENTAL HEALTH DIAGNOSTIC STUDY NOTE DATE OF NOTE: JUN 24, 2023@12:02 ENTRY DATE: JUN 24, 2023@12:02:48 AUTHOR: ERA NORWOOD COSIGNER: URGENCY: STATUS: COMPLETED CLINICAL INSTITUTE WITHDRAWAL ASSESSMENT (CIWA-AR) CIWA-AR Total Score: 0 Scores of less than 8 indicate mild withdrawal, 8-15 indicate moderate withdrawal (marked autonomic arousal) and >15 indicate severe withdrawal and are also predictive of the development of seizures and delirium. 1. Time (use 24 hour clock, midnight is 00:00): 0800 2. Pulse or heart rate (taken for one minute): 67 3. Blood pressure: 125/78 4. NAUSEA AND VOMITING - Ask, Do you feel sick to your stomach? Have you vomited? Observation: No nausea and no vomiting 5. TREMOR - Arms extended and fingers spread apart. Observation: No tremor 6. PAROXYSMAL SWEATS - Observation: No sweat visible 7. ANXIETY - Ask, Do you feel nervous? Observation: No anxiety, at ease 8. AGITATION - Observation: Normal activity 9. [...] I? Oriented and can do serial additions /brenda/ JEFFERSON HEATH-RN Barrel Rib Matting Machine Operator Nurse Java Web Engineer Signed: 06/24/2023 12:04 [facility] Jun 24, 2023 10:26 AM MENTAL HEALTH NOTE: LOCAL TITLE: INPATIENT MH INTERDISCIPLINARY TREATMENT TEAM STANDARD TITLE: MENTAL HEALTH NOTE DATE OF NOTE: JUN 24, 2023@10:26 ENTRY DATE: JUN 24, 2023@10:26:19 AUTHOR: KELL FLOYD COSIGNER: URGENCY: STATUS: COMPLETED INTERDISCIPLINARY TEAM ROUNDING ALL MEMBERS LISTED COSIGNERS TO THIS NOTE, WELL , DISCUSSED TREATMENT PLAN GOALS, IMPLEMENTATION, AND PROGRESS. (See discipline progress note with this date for additional discipline specific information.) SERVICE CONNECTED % - 60 ASSESSMENT: 67 yr old WHITE MALE admitted May 17:57 for (chief complaint): DIAGNOSIS: Alcohol use disorder PATIENT'S STATED TREATMENT GOALS: go for a walk and go to groups PATIENT EDUCATION/INFORMED CONSENT:The patient appeared able to understand this information and accepted the risks involved. TREATMENT PLAN/DISCUSSION: 1. INPATIENT STATUS: a. Continued stay for treatment, safety. b. Retention on inpatient service is required due to ongoing: Other: discharge planned for 06/27 2. PRIVILEGE STATUS:Restricted to unit 3. PRESENTING MENTAL HEALTH PROBLEM (Medical problems listed below): > Alcohol use disorder > Degree of resolution:Partial > Plan for treatment/resolution: outpatient [facility] treatment, AA, PTSD group > Responsible clinician(s):Psychiatrist, Psychologist, Sheet Rock Hanger, Nursing 4. VIOLENCE RISK to self or others: > Status:Not an active concern > Plan to address, if applicable:15 min checks, RTU > Expected time frame for resolution/review of progress: 5 days > Responsible clinician(s):Psychiatrist, Psychologist, Sheet [employer] Hanger, Nursing 5. PHYSICAL HEALTH MAINTENANCE AND MONITORING, REDUCTION OF RISK (falls/injury):N/A > Nursing monitors in place - routine and individualized to manage the following concerns: > Responsible clinician: Nursing > Additional information (if applicable): 6. FAMILY, LEGAL, HOUSING CONDITIONS AFFECTING CONTINUED HOSPITALIZATION: > Unresolved concerns:Family stressors > Degree of resolution:Partial > Responsible clinician: Social Work > Additional information (if applicable): 7. MEDICATION SAFETY ISSUES/PLAN (See psychiatry note for details): > Medication reconciliation has been reviewed by staff and with . 8. PLAN TO SOLICIT PARTICIPATION FROM THE FAMILY/SUPPORT SYSTEM: > Is not planned due to: > Is planned and will address the following issues:Treatment 9. ANTICIPATED DISCHARGE PLAN: > Housing:Home > Treatment:[facility] [place] [facility] > Anticipated Discharge Date: May /brenda/ KELL FLOYD RN Registered Nurse Signed: 06/24/2023 10:31 KELL FLOYD [facility] [place] [facility] Jun 24, 2023 12:33 AM NURSING INPATIENT NOTE: LOCAL TITLE: NURSING/BEHAVIORAL NOTE STANDARD TITLE: NURSING INPATIENT NOTE DATE OF NOTE: JUN 24, 2023@00:33 ENTRY DATE: JUN 24, 2023@00:33:38 AUTHOR: ZULMA VENTURA COSIGNER: URGENCY: STATUS: COMPLETED DEFINITIONS FOR FOCUS CHARTING FOCUS - Topic of note, based on change in condition, significant event or compliance with standards. DATA - Subjective or objective information supporting the focus. ACTION - Past, present or future nursing interventions. RESPONSE - Patient's response to nursing care. Previous Vitals: Temperature: 97.7 F [36.5 C] (06/24/2023 00:24) Pulse: 59 (06/24/2023 00:24) Respiration: 18 (06/24/2023 00:24) Blood Pressure: 135/91 (06/24/2023 00:24) Height: 74 in [188.0 cm] (03/26/2023 13:12) Weight: 225.8 lb [102.42 kg] (06/21/2023 15:12) Allergies: Patient has answered NKA Active Medications: F: Ineffective Individual Coping r/t ETOH Use Disorder D: 67 year old is being monitored Q Shift according to ETOH protocols, scored according to the CIWA-AR scale, and medicated as appropriate if applicable. scored a 0. A: Monitor for ETOH withdrawal using the CIWA scale; monitor vital signs, medicate as needed and encourage fluids. Assess for changes in mood and behaviors, and continue q15min safety checks with continuous rounding. R: As above /brenda/ MARY WinstonN, RN Registered Nurse Signed: 06/24/2023 07:13 CRISTOBAL VENTURA [place] [facility] Jun 24, 2023 12:32 AM MENTAL HEALTH DIAGNOSTIC STUDY NOTE: LOCAL TITLE: CIWA-AR NURSING NOTE STANDARD TITLE: MENTAL HEALTH DIAGNOSTIC STUDY NOTE DATE OF NOTE: JUN 24, 2023@00:32 ENTRY DATE: JUN 24, 2023@00:32:55 AUTHOR: ZULMA VENTURA EXP COSIGNER: URGENCY: STATUS: COMPLETED CLINICAL INSTITUTE WITHDRAWAL ASSESSMENT (CIWA-AR) CIWA-AR Total Score: 0 Scores of less than 8 indicate mild withdrawal, 8-15 indicate moderate withdrawal (marked autonomic arousal) and >15 indicate severe withdrawal and are also predictive of the development of seizures and delirium. 1. Time (use 24 hour clock, midnight is 00:00): 0000 2. Pulse or heart rate (taken for one minute): 59 3. Blood pressure: 135/91 4. NAUSEA AND VOMITING - Ask, Do you feel sick to your stomach? Have you vomited? Observation: No nausea and no vomiting 5. TREMOR - Arms extended and fingers spread apart. Observation: No tremor 6. PAROXYSMAL SWEATS - Observation: No sweat visible 7. ANXIETY - Ask, Do you feel nervous? Observation: No anxiety, at ease 8. AGITATION - Observation: Normal activity 9. [...] I? Oriented and can do serial additions /brenda/ JEFFERSON Winston, RN Registered Nurse Signed: 06/24/2023 00:33 [facility] Jun 23, 2023 07:27 PM CLINICAL WARNING: LOCAL TITLE: LEGAL STATUS(T) STANDARD TITLE: CLINICAL WARNING DATE OF NOTE: JUN 23, 2023@19:27 ENTRY DATE: JUN 23, 2023@19:27:20 AUTHOR: YOLANDE MARTE EXP COSIGNER: URGENCY: STATUS: COMPLETED [place] signed a 3 day notice 06/23/2023 @ 1921. /brenda/ Yolande Marte RN Signed: 06/23/2023 19:28 Receipt Acknowledged By: 06/24/2023 14:59 /brenda/ KATHY BERMUDEZ FOUNDER AND CHIEF EXECUTIVE OFFICER Sheet [employer] Hanger 06/23/2023 19:34 /brenda/ REAGAN MÁRQUEZ MD PSYCHIATRIST [facility]DE MARTE [facility] Jun 23, 2023 06:00 PM CARDIOLOGY DIAGNOSTIC STUDY CONSULT: LOCAL TITLE: CONSULT REPORT/EKG STANDARD TITLE: CARDIOLOGY DIAGNOSTIC STUDY CONSULT DATE OF NOTE: JUN 23, 2023@18:00 ENTRY DATE: JUN 23, 2023@18:00:25 AUTHOR: CECILE NIETO EXP COSIGNER: URGENCY: STATUS: COMPLETED EKG tracing was performed for diagnosis of AFF ordered by Elvin. /brenda/ CECILE PAULINO, RN REGISTERED NURSE Signed: 06/23/2023 18:00 CECILE NIETO [facility] Jun 23, 2023 05:57 PM NURSING INPATIENT NOTE: LOCAL TITLE: NURSING/BEHAVIORAL NOTE STANDARD TITLE: NURSING INPATIENT NOTE DATE OF NOTE: JUN 23, 2023@17:57 ENTRY DATE: JUN 23, 2023@17:58:06 AUTHOR: YASMANY DECKER EXP COSIGNER: URGENCY: STATUS: COMPLETED DEFINITIONS FOR FOCUS CHARTING FOCUS - Topic of note, based on change in condition, significant event or compliance with standards. DATA - Subjective or objective information supporting the focus. ACTION - Past, present or future nursing interventions. RESPONSE - Patient's response to nursing care. Previous Vitals: Temperature: 97.9 F [36.6 C] (06/23/2023 16:00) Pulse: 65 (06/23/2023 16:00) Respiration: 18 (06/23/2023 16:00) Blood Pressure: 143/90 (06/23/2023 16:00) Height: 74 in [188.0 cm] (03/26/2023 13:12) Weight: 225.8 lb [102.42 kg] (06/21/2023 15:12) Allergies: Patient has answered NKA Active Medications: F: Inneffective individual coping r/t Alcohol Use Disorder D: 67 year old male has been visible [...] evening watching TV and chatting with others. [facility] QSH:0 A:Will continue to monitor for changes in mental status, mood, and behaviors by observation during continuous rounding every 15 minutes to ensure safety was performed. In addition, to provide support and encouragement to to utilize coping skills and be receptive to medication education in order to improve outcomes and prepare for discharge. Vet will verbalize their understanding. R:As arsenio /brenda/ YASMANY DECKER RN Registered Nurse Signed: 06/23/2023 23:10 YASMANY DECKER [place] [facility] [place] [facility] Jun 23, 2023 05:05 PM MENTAL HEALTH DIAGNOSTIC STUDY NOTE: LOCAL TITLE: WA-AR NURSING NOTE STANDARD TITLE: MENTAL HEALTH DIAGNOSTIC STUDY NOTE DATE OF NOTE: JUN 23, 2023@17:05 ENTRY DATE: JUN 23, 2023@17:06:02 AUTHOR: YASMANY DECKER EXP COSIGNER: URGENCY: STATUS: COMPLETED CLINICAL INSTITUTE WITHDRAWAL ASSESSMENT (CIWA-AR) CIWA-AR Total Score: 0 Scores of less than 8 indicate mild withdrawal, 8-15 indicate moderate withdrawal (marked autonomic arousal) and >15 indicate severe withdrawal and are also predictive of the development of seizures and delirium. 1. Time (use 24 hour clock, midnight is 00:00): 1700 2. Pulse or heart rate (taken for one minute): 65 3. Blood pressure: 143/90 4. NAUSEA AND VOMITING - Ask, Do you feel sick to your stomach? Have you vomited? Observation: No nausea and no vomiting 5. TREMOR - Arms extended and fingers spread apart. Observation: No tremor 6. PAROXYSMAL SWEATS - Observation: No sweat visible 7. ANXIETY - Ask, Do you feel nervous? Observation: No anxiety, at ease 8. AGITATION - Observation: Normal activity 9. [...] I? Oriented and can do serial additions /es/ YASMANY DECKER RN Registered Nurse Signed: 06/23/2023 17:07 YASMANY DECKER [place] [facility] [place] [facility] Jun 23, 2023 03:21 PM NURSING INPATIENT NOTE: LOCAL TITLE: NURSING/BEHAVIORAL NOTE STANDARD TITLE: NURSING INPATIENT NOTE DATE OF NOTE: JUN 23, 2023@15:21 ENTRY DATE: JUN 23, 2023@15:21:45 AUTHOR: KELL FLOYD COSIGNER: URGENCY: STATUS: COMPLETED DEFINITIONS FOR FOCUS CHARTING FOCUS - Topic of note, based on change in condition, significant event or compliance with standards. DATA - Subjective or objective information supporting the focus. ACTION - Past, present or future nursing interventions. RESPONSE - Patient's response to nursing care. Previous Vitals: Temperature: 96.8 F [36.0 C] (06/23/2023 08:55) Pulse: 68 (06/23/2023 08:55) Respiration: 18 (06/23/2023 08:55) Blood Pressure: 114/70 (06/23/2023 08:55) Height: 74 in [188.0 cm] (03/26/2023 13:12) Weight: 225.8 lb [102.42 kg] (06/21/2023 15:12) Allergies: Patient has answered NKA Active Medications: F: Ineffective individual coping r/t alcohol use disorder. D: [place] continues to be assessed for alcohol withdrawal every shift with CIWA per protocol: 0900 CIWA: 0 67 year old male visible on unit, interacting with staff and peers. [place] calm and pleasant. [place] denies any withdrawal symptoms. watched television and socialized with peers. attended afternoon group. Appetite good, vet ate well at lunch and snacked. Fluids encouraged. Compliant with medication. VSS. Not voicing any thoughts of harm to self or others and has remained safe on the unit. A: Continue to assess alcohol withdrawal with CIWA per protocol. Continue to provide a safe and therapeutic environment and encourage to utilize appropriate coping skills. Continue to encourage compliance with medication and individualized treatment plan. Continue to monitor for safety and assess mental status, mood and behavior with continuous rounding and safety checks R: As above /brenda/ KELL FLOYD RN Registered Nurse Signed: 06/23/2023 15:25 KELL FLOYD [place] [facility] Jun 23, 2023 11:20 AM NUTRITION DIETETICS NOTE: LOCAL TITLE: NUTRITION PROGRESS NOTE STANDARD TITLE: NUTRITION DIETETICS NOTE DATE OF NOTE: JUN 23, 2023@11:20 ENTRY DATE: JUN 23, 2023@11:20:18 AUTHOR: JOHN DAMON: URGENCY: STATUS: COMPLETED was seen soon after admitted and the medical record was reviewed; did not meet the criteria for comprehensive nutrition assessment. Denied food allergies or intolerances, though had a problem with pimples after consumption of milk in the past. No longer has this problem, but prefers to drink Gatorade Zero, seltzer, or water with meals vs milk. Has never had a reaction after consumption of yogurt, ice cream, or other dairy. Prior to admission, typically ate well at breakfast and lunch; has consumed a liquid supper (alcohol) for the past six years. Does not add salt or sugar to food; tries to make healthy choices. Appetite is currently good. Consumed at least 75% of the lunch meal observed. Reported usual weight 220-225 lbs for some time, though weighed under 210 lbs in the past. Current weight is 225.8 lbs. Target for height 6'2 is 190 lbs +/-10%. has history of HTN, IFG, dyslipidemia, fatty liver, aflutter, DJD, and alcohol use disorder. Blood pressure is under good control at this time on several antihypertensive medications. A recent A1C was WNL, indicating good control of blood glucose in the past several months. A recent lipid profile included an elevated LDL (132), indicating increased cardiovascular risk. Long-term use of an anticoagulant noted to treat cardiac arrhythmia. reported history of walking six miles per day when sober; physical activity has been limited in the past six years, though has walked his dogs short distances most days. 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 The regular diet was ordered. [place] was educated on the menu selection process in use here and on snack options available. He was encouraged to work on three balanced meals per day here, and to continue same after returning home. Also encouraged resumption of regular exercise as soon as able. Suggested that weight loss back below 210 lbs might be of benefit with respect to cardiac issue, IFG, dyslipidemia, fatty liver and DJD. More in-depth nutrition education to be an option if interested at a later time. Plan: continue the regular diet follow up prn /brenda/ John Damon RD, LDN Staff Dietitian Signed: 06/23/2023 11:50 JOHN DAMON [facility] Jun 23, 2023 10:44 AM RECREATIONAL THERAPY NOTE: LOCAL TITLE: RECREATION THERAPY NOTE STANDARD TITLE: RECREATIONAL THERAPY NOTE DATE OF NOTE: JUN 23, 2023@10:44 ENTRY DATE: JUN 23, 2023@10:44:50 AUTHOR: YENI FENTON EXP COSIGNER: URGENCY: STATUS: COMPLETED Diagnosis: Major depressive Duration of Session: 0hrs 0min [place] Response: Undersigned invited Nathan and other Veterans to engage in recreation activity or join the art session. He declined as he continued to sit in front of the television watching an automotive show. /brenda/ Yeni Fenton MS,YOGHURT MAKER LEAD RECRATION THERAPIST Signed: 06/23/2023 13:19 [facility]I FENTON [place] [facility] Jun 23, 2023 09:00 AM MENTAL HEALTH DIAGNOSTIC STUDY NOTE: LOCAL TITLE: [facility]-AR NURSING NOTE STANDARD TITLE: MENTAL HEALTH DIAGNOSTIC STUDY NOTE DATE OF NOTE: JUN 23, 2023@09:00 ENTRY DATE: JUN 23, 2023@10:26:55 AUTHOR: KELL FLOYD COSIGNER: URGENCY: STATUS: COMPLETED CLINICAL INSTITUTE WITHDRAWAL ASSESSMENT (CIWA-AR) CIWA-AR Total Score: 0 Scores of less than 8 indicate mild withdrawal, 8-15 indicate moderate withdrawal (marked autonomic arousal) and >15 indicate severe withdrawal and are also predictive of the development of seizures and delirium. 1. Time (use 24 hour clock, midnight is 00:00): 0900 2. Pulse or heart rate (taken for one minute): 68 3. Blood pressure: 114/70 4. NAUSEA AND VOMITING - Ask, Do you feel sick to your stomach? Have you vomited? Observation: No nausea and no vomiting 5. TREMOR - Arms extended and fingers spread apart. Observation: No tremor 6. PAROXYSMAL SWEATS - Observation: No sweat visible 7. ANXIETY - Ask, Do you feel nervous? Observation: No anxiety, at ease 8. AGITATION - Observation: Normal activity 9. [...] I? Oriented and can do serial additions /es/ KELL FLOYD RN Registered Nurse Signed: 06/23/2023 10:27 KELL FLOYD [facility] Jun 23, 2023 07:50 AM NURSING INPATIENT NOTE: LOCAL TITLE: NURSING/BEHAVIORAL NOTE STANDARD TITLE: NURSING INPATIENT NOTE DATE OF NOTE: JUN 23, 2023@07:50 ENTRY DATE: JUN 23, 2023@05:57:33 AUTHOR: GILDA CUBA COSIGNER: URGENCY: STATUS: COMPLETED DEFINITIONS FOR FOCUS CHARTING FOCUS - Topic of note, based on change in condition, significant event or compliance with standards. DATA - Subjective or objective information supporting the focus. ACTION - Past, present or future nursing interventions. RESPONSE - Patient's response to nursing care. Previous Vitals: Temperature: 97.9 F [36.6 C] (06/23/2023 00:23) Pulse: 64 (06/23/2023 00:23) Respiration: 16 (06/23/2023 00:23) Blood Pressure: 138/93 (06/23/2023 00:23) Height: 74 in [188.0 cm] (03/26/2023 13:12) Weight: 225.8 lb [102.42 kg] (06/21/2023 15:12) Allergies: Patient has answered NKA Active Medications: F: Ineffective Coping Individual r/t Alcohol use disorder D: is a 67 y/o who continues to be monitored for signs/symptoms of alcohol withdrawal Q4hrs using the [facility] detox protocols. [place] scored Zero and Zero this shift . was noted sleeping in bed throughout the shift up once to use the toilet and back to bed , no sleep disturbance noted . [place] reported he slept well . was up at around 7am showere and was noted in the day rincon eating breakfast. is adhering to scheduled medication. maintained safety in the unit and did not verbalize any SI or HI. A: Continue to monitor every 15 minutes safety checks with continuous rounding. Continue to monitor and assess for signs/symptoms of alcohol withdrawal using the [facility] detox protocol. Administer medications as needed and encourage fluids. Continue to monitor and assess mental status, mood and behavior and encourage to utilize coping skills and compliance with treatment plan, encourage medication compliance. Encourage to communicate their needs to staff and provide information to Nursing staff to best care for their needs. All safety precautions in place. R: As above /brenda/ GILDA HERNANDEZN REGISTERED NURSE Signed: 06/23/2023 07:50 BEAN CUBA [place] [facility] Jun 23, 2023 06:23 AM MENTAL HEALTH DIAGNOSTIC STUDY NOTE: LOCAL TITLE: [facility]-AR NURSING NOTE STANDARD TITLE: MENTAL HEALTH DIAGNOSTIC STUDY NOTE DATE OF NOTE: JUN 23, 2023@06:23 ENTRY DATE: JUN 23, 2023@06:24:01 AUTHOR: RHEA BOSTON COSIGNER: URGENCY: STATUS: COMPLETED CLINICAL INSTITUTE WITHDRAWAL ASSESSMENT (CIWA-AR) CIWA-AR Total Score: 0 Scores of less than 8 indicate mild withdrawal, 8-15 indicate moderate withdrawal (marked autonomic arousal) and >15 indicate severe withdrawal and are also predictive of the development of seizures and delirium. 1. Time (use 24 hour clock, midnight is 00:00): 0600 2. Pulse or heart rate (taken for one minute): 65 3. Blood pressure: 129/81 4. NAUSEA AND VOMITING - Ask, Do you feel sick to your stomach? Have you vomited? Observation: No nausea and no vomiting 5. TREMOR - Arms extended and fingers spread apart. Observation: No tremor 6. PAROXYSMAL SWEATS - Observation: No sweat visible 7. ANXIETY - Ask, Do you feel nervous? Observation: No anxiety, at ease 8. AGITATION - Observation: Normal activity 9. [...] I? Oriented and can do serial additions /es/ RHEA SHARIF PRACTICAL NURSE Signed: 06/23/2023 06:24 RHEA BOSTON [facility] [place] [facility] Jun 23, 2023 06:15 AM MENTAL HEALTH DIAGNOSTIC STUDY NOTE: LOCAL TITLE: [facility] NURSING NOTE STANDARD TITLE: MENTAL HEALTH DIAGNOSTIC STUDY NOTE DATE OF NOTE: JUN 23, 2023@06:15 ENTRY DATE: JUN 23, 2023@06:21:09 AUTHOR: GILDA CUBA EXP COSIGNER: URGENCY: STATUS: COMPLETED CLINICAL INSTITUTE WITHDRAWAL ASSESSMENT (CIWA-AR) CIWA-AR Total Score: 0 Scores of less than 8 indicate mild withdrawal, 8-15 indicate moderate withdrawal (marked autonomic arousal) and >15 indicate severe withdrawal and are also predictive of the development of seizures and delirium. 1. Time (use 24 hour clock, midnight is 00:00): 0615 2. Pulse or heart rate (taken for one minute): 65 3. Blood pressure: 129/81 4. NAUSEA AND VOMITING - Ask, Do you feel sick to your stomach? Have you vomited? Observation: No nausea and no vomiting 5. TREMOR - Arms extended and fingers spread apart. Observation: No tremor 6. PAROXYSMAL SWEATS - Observation: No sweat visible 7. ANXIETY - Ask, Do you feel nervous? Observation: No anxiety, at ease 8. AGITATION - Observation: Normal activity 9. [...] I? Oriented and can do serial additions /es/ GILDA CUBA BSN REGISTERED NURSE Signed: 06/23/2023 06:22 BEAN CUBA [place] [facility] Jun 23, 2023 12:53 AM MENTAL HEALTH DIAGNOSTIC STUDY NOTE: LOCAL TITLE: [facility] NURSING NOTE STANDARD TITLE: MENTAL HEALTH DIAGNOSTIC STUDY NOTE DATE OF NOTE: JUN 23, 2023@00:53 ENTRY DATE: JUN 23, 2023@00:53:57 AUTHOR: RHEA BOSTON EXP COSIGNER: URGENCY: STATUS: COMPLETED CL[facility]ICAL INSTITUTE WITHDRAWAL ASSESSMENT (CIWA-AR) CIWA-AR Total Score: 0 Scores of less than 8 indicate mild withdrawal, 8-15 indicate moderate withdrawal (marked autonomic arousal) and >15 indicate severe withdrawal and are also predictive of the development of seizures and delirium. 1. Time (use 24 hour clock, midnight is 00:00): 0000 2. Pulse or heart rate (taken for one minute): 64 3. Blood pressure: 138/93 4. NAUSEA AND VOMITING - Ask, Do you feel sick to your stomach? Have you vomited? Observation: No nausea and no vomiting 5. TREMOR - Arms extended and fingers spread apart. Observation: No tremor 6. PAROXYSMAL SWEATS - Observation: No sweat visible 7. ANXIETY - Ask, Do you feel nervous? Observation: No anxiety, at ease 8. AGITATION - Observation: Normal activity 9. [...] I? Oriented and can do serial additions /brenda/ RHEA SHARIF PRACTICAL NURSE Signed: 06/23/2023 00:54 RHEA BOSTON [place] [facility] Jun 22, 2023 11:04 PM NURSING INPATIENT NOTE: LOCAL TITLE: NURSING/BEHAVIORAL NOTE STANDARD TITLE: NURSING INPATIENT NOTE DATE OF NOTE: JUN 22, 2023@23:04 ENTRY DATE: JUN 22, 2023@23:04:10 AUTHOR: PAULETTE JAQUEZ COSIGNER: URGENCY: STATUS: COMPLETED DEFINITIONS FOR FOCUS CHARTING FOCUS - Topic of note, based on change in condition, significant event or compliance with standards. DATA - Subjective or objective information supporting the focus. ACTION - Past, present or future nursing interventions. RESPONSE - Patient's response to nursing care. Previous Vitals: Temperature: 98.4 F [36.9 C] (06/22/2023 22:00) Pulse: 66 (06/22/2023 22:00) Respiration: 16 (06/22/2023 22:00) Blood Pressure: 131/87 (06/22/2023 22:00) Height: 74 in [188.0 cm] (03/26/2023 13:12) Weight: 225.8 lb [102.42 kg] (06/21/2023 15:12) Allergies: Patient has answered NKA Active Medications: F: Ineffective individual coping r/t Alcohol Use Disorder D: [place] is being monitored for alcohol withdrawal and assessed using the CIWA-Ar scale Q4 hours. 's CIWA scores this evening were 1, 0, and 0. He was visible in milieu for portions of the shift, watching TV and socializing with peers. He is friendly and polite with staff. ate the majority of his dinner. He retired for the evening at approximately 20:00. Betty has not voiced any safety concerns to this information writer. A: Nursing will continue to monitor and assess [place]'s vital signs, mood, affect, behaviors, and health according to treatment plan of care, medicate per orders, and perform appropriate nursing interventions. Continue with Q15 minute safety checks and continuous rounding for safety. R: See above for [place]'s behavior and response to treatment as observed by this information writer during this evening's shift. /brenda/ PAULETTE JAQUEZ RN, [facility] Registered Nurse Signed: 06/22/2023 23:08 PAULETTE [facility]QUEZ [place] [facility] Jun 22, 2023 10:00 PM MENTAL HEALTH DIAGNOSTIC STUDY NOTE: LOCAL TITLE: [facility] NURSING NOTE STANDARD TITLE: MENTAL HEALTH DIAGNOSTIC STUDY NOTE DATE OF NOTE: JUN 22, 2023@22:00 ENTRY DATE: JUN 22, 2023@22:28:32 AUTHOR: YASMANY DECKER COSIGNER: URGENCY: STATUS: COMPLETED [facility]ICAL INSTITUTE WITHDRAWAL ASSESSMENT (CIWA-AR) CIWA-AR Total Score: 0 Scores of less than 8 indicate mild withdrawal, 8-15 indicate moderate withdrawal (marked autonomic arousal) and >15 indicate severe withdrawal and are also predictive of the development of seizures and delirium. 1. Time (use 24 hour clock, midnight is 00:00): 2200 2. Pulse or heart rate (taken for one minute): 66 3. Blood pressure: 131/87 4. NAUSEA AND VOMITING - Ask, Do you feel sick to your stomach? Have you vomited? Observation: No nausea and no vomiting 5. TREMOR - Arms extended and fingers spread apart. Observation: No tremor 6. PAROXYSMAL SWEATS - Observation: No sweat visible 7. ANXIETY - Ask, Do you feel nervous? Observation: No anxiety, at ease 8. AGITATION - Observation: Normal activity 9. [...] I? Oriented and can do serial additions /brenda/ YASMANY DECKER RN Registered Nurse Signed: 06/22/2023 22:31 YASMANY DECKER [facility] [place] [facility] Jun 22, 2023 06:00 PM MENTAL HEALTH DIAGNOSTIC STUDY NOTE: LOCAL TITLE: [facility] NURSING NOTE STANDARD TITLE: MENTAL HEALTH DIAGNOSTIC STUDY NOTE DATE OF NOTE: JUN 22, 2023@18:00 ENTRY DATE: JUN 22, 2023@18:18:10 AUTHOR: YASMANY DECKER EXP COSIGNER: URGENCY: STATUS: COMPLETED [facility]ICAL INSTITUTE WITHDRAWAL ASSESSMENT (CIWA-AR) CIWA-AR Total Score: 0 Scores of less than 8 indicate mild withdrawal, 8-15 indicate moderate withdrawal (marked autonomic arousal) and >15 indicate severe withdrawal and are also predictive of the development of seizures and delirium. 1. Time (use 24 hour clock, midnight is 00:00): 1800 2. Pulse or heart rate (taken for one minute): 57 3. Blood pressure: 142/87 4. NAUSEA AND VOMITING - Ask, Do you feel sick to your stomach? Have you vomited? Observation: No nausea and no vomiting 5. TREMOR - Arms extended and fingers spread apart. Observation: No tremor 6. PAROXYSMAL SWEATS - Observation: No sweat visible 7. ANXIETY - Ask, Do you feel nervous? Observation: No anxiety, at ease 8. AGITATION - Observation: Normal activity 9. [...] I? Oriented and can do serial additions /brenda/ YASMANY DECKER RN Registered Nurse Signed: 06/22/2023 18:18 YASMANY DECKER [facility] [place] [facility] Jun 22, 2023 04:22 PM MENTAL HEALTH DIAGNOSTIC STUDY NOTE: LOCAL TITLE: [facility] NURSING NOTE STANDARD TITLE: MENTAL HEALTH DIAGNOSTIC STUDY NOTE DATE OF NOTE: JUN 22, 2023@16:22 ENTRY DATE: JUN 22, 2023@16:22:53 AUTHOR: YASMANY DECKER EXP COSIGNER: URGENCY: STATUS: COMPLETED CLINICAL INSTITUTE WITHDRAWAL ASSESSMENT (CIWA-AR) CIWA-AR Total Score: 1 Scores of less than 8 indicate mild withdrawal, 8-15 indicate moderate withdrawal (marked autonomic arousal) and >15 indicate severe withdrawal and are also predictive of the development of seizures and delirium. 1. Time (use 24 hour clock, midnight is 00:00): 1600 2. Pulse or heart rate (taken for one minute): 66 3. Blood pressure: 144/91 4. NAUSEA AND VOMITING - Ask, Do you feel sick to your stomach? Have you vomited? Observation: No nausea and no vomiting 5. TREMOR - Arms extended and fingers spread apart. Observation: Not visible, but can be felt fingertip to fingertip 6. PAROXYSMAL SWEATS - Observation: No sweat visible 7. ANXIETY - Ask, Do you feel nervous? Observation: No anxiety, at ease 8. AGITATION - Observation: Normal activity 9. [...] I? Oriented and can do serial additions /brenda/ YASMANY DECKER RN Registered Nurse Signed: 06/22/2023 16:23 YASMANY DECKER [facility] [place] [facility] Jun 22, 2023 02:00 PM MENTAL HEALTH DIAGNOSTIC STUDY NOTE: LOCAL TITLE: [facility] NURSING NOTE STANDARD TITLE: MENTAL HEALTH DIAGNOSTIC STUDY NOTE DATE OF NOTE: JUN 22, 2023@14:00 ENTRY DATE: JUN 22, 2023@14:26:24 AUTHOR: LAURIE CHAVEZ EXP COSIGNER: URGENCY: STATUS: COMPLETED CLINICAL INSTITUTE WITHDRAWAL ASSESSMENT (CIWA-AR) CIWA-AR Total Score: 1 Scores of less than 8 indicate mild withdrawal, 8-15 indicate moderate withdrawal (marked autonomic arousal) and >15 indicate severe withdrawal and are also predictive of the development of seizures and delirium. 1. Time (use 24 hour clock, midnight is 00:00): 1400 2. Pulse or heart rate (taken for one minute): 66 3. Blood pressure: 146/84 4. NAUSEA AND VOMITING - Ask, Do you feel sick to your stomach? Have you vomited? Observation: No nausea and no vomiting 5. TREMOR - Arms extended and fingers spread apart. Observation: No tremor 6. PAROXYSMAL SWEATS - Observation: No sweat visible 7. ANXIETY - Ask, Do you feel nervous? Observation: No anxiety, at ease 8. AGITATION - Observation: Normal activity 9. [...] for dizziness or lightheadedness. Otherwise, rate severity: Very mild 13. ORIENTATION AND CLOUDING OF SENSORIUM - Ask, What day is this? Where are you? Who am I? Oriented and can do serial additions /es/ LAURIE CHAVEZ RN BSN STAFF NURSE Signed: 06/22/2023 14:29 LAURIE CHAVEZ [place] [facility] [place] [facility] Jun 22, 2023 01:41 PM PSYCHIATRY INPATIENT NOTE: LOCAL TITLE: INPATIENT PSYCHIATRY NOTE(T) STANDARD TITLE: PSYCHIATRY INPATIENT NOTE DATE OF NOTE: JUN 22, 2023@13:41 ENTRY DATE: JUN 22, 2023@13:41:54 AUTHOR: ROYCE CALDERON EXP COSIGNER: URGENCY: STATUS: COMPLETED Patient Name: NATHAN MURPHY SSN: [id number] Current Admission: JUN 20 Active Inpatient Medications: 1) AMLODIPINE BESYLATE TAB 5MG PO DAILY 2) APIXABAN TAB,ORAL 5MG PO Q12H 3) BUPROPION HCL (SR 12HR RELEASE) TAB,SA 200MG PO QDAILY 4) CICLOPIROX OLAMINE SOLN,TOP SMALL AMOUNT TOP DAILY wipe off with alcohol every 7days; max use 12mos 5) FOLIC ACID TAB 1MG PO DAILY 6) METOPROLOL SUCCINATE TAB,SA 50MG PO QHS 7) OXAZEPAM CAP,ORAL 15MG PO Q2H PRN Serax 15mg q 2hour NEEDED for CIWA 8-14 8) OXAZEPAM CAP,ORAL 30MG PO Q2H PRN Serax 30mg q 2hour NEEDED for CIWA 15-19 9) OXAZEPAM CAP,ORAL 60MG PO Q2H PRN FOR CIWA 20 AND ABOVE; AND CALL MD 10) PNEUMOCOCCAL VACCINE 23-VALENT SDV INJ 0.5ML IM ONE TIME 11) THIAMINE HCL TAB 100MG PO DAILY PSYCHIATRY COVERAGE NOTE: NATHAN MURPHY is a [place], 67 yo, male who was admitted for detox from alcohol and depression with suicidal ideation with plan and intent. Followed by Susan Morris at [facility]. Two identifiers were used. States last drink was Wednesday afternoon. He has not been scoring on CIWA-AR. CC: I was sober 8 years and I started again. I should have stayed sober. I know what I have to do. My family stands beside me. I retired a year ago and I'm still working. Vet states he was offered a job at the [employer] as he knows the people there and he is working in the [employer] department. He currently denies having any suicidal ideas and he is future oriented. Only concern is his BP. Vet no longer on stimulant medications for over a week due to A. Flutter. He has been up and about in the dayroom interacting with peers and watching TV. He has been compliant with irwin routine and medications. MSE: NATHAN MURPHY is a large, balding 67 yo, male who is casually dressed wearing the [facility] jammies, a t-shirt, a henry, and glasses. He has good personal hygiene. He is alert and oriented, pleasant, and cooperative with good contact during interview. Speech is goal directed with normal kinetics. Mood is euthymic and affect is full and appropriate to thought content. Memory appears to be intact. Denies having any current suicidal ideations and vet is future oriented. No homicidal ideations. No hallucinations or delusions were elicited. Good general fund of knowledge. Insight and judgement is improving. Assessment: AUD. Major depression recurrent Plan: Continue present treatment plan. Stabilize and return to the community. /brenda/ ROYCE CALDERON JR, MD STAFF PSYCHIATRIST Signed: 06/22/2023 14:52 ORYCE CALDERON MD [place] [facility] [place] [facility] Jun 22, 2023 12:18 PM MENTAL HEALTH DIAGNOSTIC STUDY NOTE: LOCAL TITLE: [facility] NURSING NOTE STANDARD TITLE: MENTAL HEALTH DIAGNOSTIC STUDY NOTE DATE OF NOTE: JUN 22, 2023@12:18 ENTRY DATE: JUN 22, 2023@12:19:03 AUTHOR: LAURIE CHAVEZ EXP COSIGNER: URGENCY: STATUS: COMPLETED CLINICAL INSTITUTE WITHDRAWAL ASSESSMENT (CIWA-AR) CIWA-AR Total Score: 0 Scores of less than 8 indicate mild withdrawal, 8-15 indicate moderate withdrawal (marked autonomic arousal) and >15 indicate severe withdrawal and are also predictive of the development of seizures and delirium. 1. Time (use 24 hour clock, midnight is 00:00): 1215 2. Pulse or heart rate (taken for one minute): 67 3. Blood pressure: 144/94 4. NAUSEA AND VOMITING - Ask, Do you feel sick to your stomach? Have you vomited? Observation: No nausea and no vomiting 5. TREMOR - Arms extended and fingers spread apart. Observation: No tremor 6. PAROXYSMAL SWEATS - Observation: No sweat visible 7. ANXIETY - Ask, Do you feel nervous? Observation: No anxiety, at ease 8. AGITATION - Observation: Normal activity 9. [...] I? Oriented and can do serial additions /brenda/ LAURIE CHAVEZ RN BSN STAFF NURSE Signed: 06/22/2023 12:20 [facility] Jun 22, 2023 11:47 AM PREVENTIVE MEDICINE NURSING NOTE: LOCAL TITLE: CLINICAL REMINDERS/NURSING STANDARD TITLE: PREVENTIVE MEDICINE NURSING NOTE DATE OF NOTE: JUN 22, 2023@11:47 ENTRY DATE: JUN 22, 2023@11:47:46 AUTHOR: ERA NORWOODIGNER: URGENCY: STATUS: COMPLETED Inpatient Influenza: Patient was offered and declined Influenza vaccine during this hospital admission. /brenda/ JEFFERSON HEATH-RN Barrel Rib Matting Machine Operator Nurse Java Web Engineer Signed: 06/22/2023 11:48 [facility] Jun 22, 2023 10:00 AM MENTAL HEALTH DIAGNOSTIC STUDY NOTE: LOCAL TITLE: CIWA-AR NURSING NOTE STANDARD TITLE: MENTAL HEALTH DIAGNOSTIC STUDY NOTE DATE OF NOTE: JUN 22, 2023@10:00 ENTRY DATE: JUN 22, 2023@10:30:33 AUTHOR: LAURIE CHAVEZIGNER: URGENCY: STATUS: COMPLETED CLINICAL INSTITUTE WITHDRAWAL ASSESSMENT (CIWA-AR) CIWA-AR Total Score: 0 Scores of less than 8 indicate mild withdrawal, 8-15 indicate moderate withdrawal (marked autonomic arousal) and >15 indicate severe withdrawal and are also predictive of the development of seizures and delirium. 1. Time (use 24 hour clock, midnight is 00:00): 1000 2. Pulse or heart rate (taken for one minute): 65 3. Blood pressure: 145/94 4. NAUSEA AND VOMITING - Ask, Do you feel sick to your stomach? Have you vomited? Observation: No nausea and no vomiting 5. TREMOR - Arms extended and fingers spread apart. Observation: No tremor 6. PAROXYSMAL SWEATS - Observation: No sweat visible 7. ANXIETY - Ask, Do you feel nervous? Observation: No anxiety, at ease 8. AGITATION - Observation: Normal activity 9. [...] I? Oriented and can do serial additions /es/ LAURIE CHAVEZ RN BSN STAFF NURSE Signed: 06/22/2023 10:31 LAURIE CHAVEZ [place] [facility] Jun 22, 2023 08:00 AM MENTAL HEALTH DIAGNOSTIC STUDY NOTE: LOCAL TITLE: [facility] NURSING NOTE STANDARD TITLE: MENTAL HEALTH DIAGNOSTIC STUDY NOTE DATE OF NOTE: JUN 22, 2023@08:00 ENTRY DATE: JUN 22, 2023@10:29:03 AUTHOR: LAURIE CHAVEZ EXP COSIGNER: URGENCY: STATUS: COMPLETED CLINICAL INSTITUTE WITHDRAWAL ASSESSMENT (CIWA-AR) CIWA-AR Total Score: 0 Scores of less than 8 indicate mild withdrawal, 8-15 indicate moderate withdrawal (marked autonomic arousal) and >15 indicate severe withdrawal and are also predictive of the development of seizures and delirium. 1. Time (use 24 hour clock, midnight is 00:00): 0800 2. Pulse or heart rate (taken for one minute): 66 3. Blood pressure: 122/84 4. NAUSEA AND VOMITING - Ask, Do you feel sick to your stomach? Have you vomited? Observation: No nausea and no vomiting 5. TREMOR - Arms extended and fingers spread apart. Observation: No tremor 6. PAROXYSMAL SWEATS - Observation: No sweat visible 7. ANXIETY - Ask, Do you feel nervous? Observation: No anxiety, at ease 8. AGITATION - Observation: Normal activity 9. [...] I? Oriented and can do serial additions /es/ LAURIE CHAVEZ DIRECTOR OF MEDICAL REVIEW STAFF NURSE Signed: 06/22/2023 10:29 LAURIE CHAVEZ [place] [facility] [place] [facility] Jun 22, 2023 08:00 AM NURSING INPATIENT NOTE: LOCAL TITLE: NURSING/BEHAVIORAL NOTE STANDARD TITLE: NURSING INPATIENT NOTE DATE OF NOTE: JUN 22, 2023@08:00 ENTRY DATE: JUN 22, 2023@10:20:34 AUTHOR: LAURIE CHAVEZ EXP COSIGNER: URGENCY: STATUS: COMPLETED DEFINITIONS FOR FOCUS CHARTING FOCUS - Topic of note, based on change in condition, significant event or compliance with standards. DATA - Subjective or objective information supporting the focus. ACTION - Past, present or future nursing interventions. RESPONSE - Patient's response to nursing care. Previous Vitals: Temperature: 97.7 F [36.5 C] (06/22/2023 10:05) Pulse: 65 (06/22/2023 10:05) Respiration: 18 (06/22/2023 10:05) Blood Pressure: 145/94 (06/22/2023 10:05) Height: 74 in [188.0 cm] (03/26/2023 13:12) Weight: 225.8 lb [102.42 kg] (06/21/2023 15:12) Allergies: Patient has answered NKA Active Medications: F: Ineffective Individual Coping r/t ETOH Use Disorder D: 67 year old is being monitored Q2hrs according to ETOH protocols, scored according to the CIWA-AR scale, and medicated as appropriate if applicable. did not score on CIWA protocols today. Betty has been present in milieu thru shift. Nathan has attended groups and is engaged in his treatment. Betty remains safe on unit and has not verbalized any thoughts of harming self or others A: Monitor for ETOH withdrawal using the CIWA-AR scale; monitor vital signs, medicate as needed and encourage fluids. Assess for changes in mood and behaviors, and continue q15min safety checks with continuous rounding. R: As above /brenda/ LAURIE CHAVEZ RN BSN STAFF NURSE Signed: 06/22/2023 14:59 LAURIE CHAVEZ [place] [facility] [place] [facility] Jun 22, 2023 06:31 AM MENTAL HEALTH DIAGNOSTIC STUDY NOTE: LOCAL TITLE: CIWA-AR NURSING NOTE STANDARD TITLE: MENTAL HEALTH DIAGNOSTIC STUDY NOTE DATE OF NOTE: JUN 22, 2023@06:31 ENTRY DATE: JUN 22, 2023@06:31:54 AUTHOR: RHEA BOSTON EXP COSIGNER: URGENCY: STATUS: COMPLETED [facility] INSTITUTE WITHDRAWAL ASSESSMENT (CIWA-AR) CIWA-AR Total Score: 0 Scores of less than 8 indicate mild withdrawal, 8-15 indicate moderate withdrawal (marked autonomic arousal) and >15 indicate severe withdrawal and are also predictive of the development of seizures and delirium. 1. Time (use 24 hour clock, midnight is 00:00): 0600 2. Pulse or heart rate (taken for one minute): 65 3. Blood pressure: 137/88 4. NAUSEA AND VOMITING - Ask, Do you feel sick to your stomach? Have you vomited? Observation: No nausea and no vomiting 5. TREMOR - Arms extended and fingers spread apart. Observation: No tremor 6. PAROXYSMAL SWEATS - Observation: No sweat visible 7. ANXIETY - Ask, Do you feel nervous? Observation: No anxiety, at ease 8. AGITATION - Observation: Normal activity 9. [...] I? Oriented and can do serial additions /es/ RHEA BOSTON LICMANJULA PRACTICAL NURSE Signed: 06/22/2023 06:32 RHEA BOSTON [place] [facility] Jun 22, 2023 04:04 AM MENTAL HEALTH DIAGNOSTIC STUDY NOTE: LOCAL TITLE: [facility] NURSING NOTE STANDARD TITLE: MENTAL HEALTH DIAGNOSTIC STUDY NOTE DATE OF NOTE: JUN 22, 2023@04:04 ENTRY DATE: JUN 22, 2023@04:05:02 AUTHOR: RHEA BOSTON COSIGNER: URGENCY: STATUS: COMPLETED [facility]ICAL INSTITUTE WITHDRAWAL ASSESSMENT (CIWA-AR) CIWA-AR Total Score: 0 Scores of less than 8 indicate mild withdrawal, 8-15 indicate moderate withdrawal (marked autonomic arousal) and >15 indicate severe withdrawal and are also predictive of the development of seizures and delirium. 1. Time (use 24 hour clock, midnight is 00:00): 0400 2. Pulse or heart rate (taken for one minute): 64 3. Blood pressure: 132/86 4. NAUSEA AND VOMITING - Ask, Do you feel sick to your stomach? Have you vomited? Observation: No nausea and no vomiting 5. TREMOR - Arms extended and fingers spread apart. Observation: No tremor 6. PAROXYSMAL SWEATS - Observation: No sweat visible 7. ANXIETY - Ask, Do you feel nervous? Observation: No anxiety, at ease 8. AGITATION - Observation: Normal activity 9. [...] I? Oriented and can do serial additions /brenda/ RHEA SHARIF PRACTICAL NURSE Signed: 06/22/2023 04:05 RHEA [facility]OSTONRL [facility] [place] [facility] Jun 22, 2023 02:19 AM MENTAL HEALTH DIAGNOSTIC STUDY NOTE: LOCAL TITLE: [facility] NURSING NOTE STANDARD TITLE: MENTAL HEALTH DIAGNOSTIC STUDY NOTE DATE OF NOTE: JUN 22, 2023@02:19 ENTRY DATE: JUN 22, 2023@02:19:33 AUTHOR: RHEA BOSTON EXP COSIGNER: URGENCY: STATUS: COMPLETED [facility] INSTITUTE WITHDRAWAL ASSESSMENT (CIWA-AR) CIWA-AR Total Score: 0 Scores of less than 8 indicate mild withdrawal, 8-15 indicate moderate withdrawal (marked autonomic arousal) and >15 indicate severe withdrawal and are also predictive of the development of seizures and delirium. 1. Time (use 24 hour clock, midnight is 00:00): 0200 2. Pulse or heart rate (taken for one minute): 66 3. Blood pressure: 138/85 4. NAUSEA AND VOMITING - Ask, Do you feel sick to your stomach? Have you vomited? Observation: No nausea and no vomiting 5. TREMOR - Arms extended and fingers spread apart. Observation: No tremor 6. PAROXYSMAL SWEATS - Observation: No sweat visible 7. ANXIETY - Ask, Do you feel nervous? Observation: No anxiety, at ease 8. AGITATION - Observation: Normal activity 9. [...] I? Oriented and can do serial additions /es/ RHEA SHARIF PRACTICAL NURSE Signed: 06/22/2023 02:24 RHEA BOSTON [place] [facility] [place] [facility] Jun 22, 2023 01:09 AM NURSING INPATIENT NOTE: LOCAL TITLE: NURSING/BEHAVIORAL NOTE STANDARD TITLE: NURSING INPATIENT NOTE DATE OF NOTE: JUN 22, 2023@01:09 ENTRY DATE: JUN 22, 2023@01:09:26 AUTHOR: ZULMA VENTURA COSIGNER: URGENCY: STATUS: COMPLETED DEFINITIONS FOR FOCUS CHARTING FOCUS - Topic of note, based on change in condition, significant event or compliance with standards. DATA - Subjective or objective information supporting the focus. ACTION - Past, present or future nursing interventions. RESPONSE - Patient's response to nursing care. Previous Vitals: Temperature: 97.5 F [36.4 C] (06/22/2023 00:16) Pulse: 65 (06/22/2023 00:16) Respiration: 18 (06/22/2023 00:16) Blood Pressure: 138/81 (06/22/2023 00:16) Height: 74 in [188.0 cm] (03/26/2023 13:12) Weight: 225.8 lb [102.42 kg] (06/21/2023 15:12) Allergies: Patient has answered NKA Active Medications: F: Ineffective Individual Coping r/t ETOH Use Disorder D: 67 year old is being monitored Q2hrs according to ETOH protocols, scored according to the CIWA-AR scale, and medicated as appropriate if applicable. [place] scored: 0,0,0,0. has been polite and cooperative with assessments. He showered in the AM. This information writer monitored with a Q tip since he wears hearing aids, and was concerned they might short out . Given Aquaphor for hands (it is stocked) Labs were drawn. A: Monitor for ETOH withdrawal using the CIWA-AR scale; monitor vital signs, medicate as needed and encourage fluids. Assess for changes in mood and behaviors, and continue q15min safety checks with continuous rounding. R: As above /brenda/ MARY WinstonN, RN Registered Nurse Signed: 06/22/2023 07:21 CRISTOBAL VENTURA [place] [facility] [place] [facility] Jun 22, 2023 12:40 AM MENTAL HEALTH DIAGNOSTIC STUDY NOTE: LOCAL TITLE: CIWA-AR NURSING NOTE STANDARD TITLE: MENTAL HEALTH DIAGNOSTIC STUDY NOTE DATE OF NOTE: JUN 22, 2023@00:40 ENTRY DATE: JUN 22, 2023@00:40:58 AUTHOR: RHEA BOSTON COSIGNER: URGENCY: STATUS: COMPLETED CLINICAL INSTITUTE WITHDRAWAL ASSESSMENT (CIWA-AR) CIWA-AR Total Score: 0 Scores of less than 8 indicate mild withdrawal, 8-15 indicate moderate withdrawal (marked autonomic arousal) and >15 indicate severe withdrawal and are also predictive of the development of seizures and delirium. 1. Time (use 24 hour clock, midnight is 00:00): 0000 2. Pulse or heart rate (taken for one minute): 65 3. Blood pressure: 138/81 4. NAUSEA AND VOMITING - Ask, Do you feel sick to your stomach? Have you vomited? Observation: No nausea and no vomiting 5. TREMOR - Arms extended and fingers spread apart. Observation: No tremor 6. PAROXYSMAL SWEATS - Observation: No sweat visible 7. ANXIETY - Ask, Do you feel nervous? Observation: No anxiety, at ease 8. AGITATION - Observation: Normal activity 9. [...] I? Oriented and can do serial additions /es/ RHEA SHARIF PRACTICAL NURSE Signed: 06/22/2023 00:41 RHEA BOSTON [facility] Jun 21, 2023 10:55 PM NURSING INPATIENT NOTE: LOCAL TITLE: NURSING/BEHAVIORAL NOTE STANDARD TITLE: NURSING INPATIENT NOTE DATE OF NOTE: JUN 21, 2023@22:55 ENTRY DATE: JUN 21, 2023@22:55:55 AUTHOR: ERNIE POPE EXP COSIGNER: URGENCY: STATUS: COMPLETED DEFINITIONS FOR FOCUS CHARTING FOCUS - Topic of note, based on change in condition, significant event or compliance with standards. DATA - Subjective or objective information supporting the focus. ACTION - Past, present or future nursing interventions. RESPONSE - Patient's response to nursing care. Previous Vitals: Temperature: 97.9 F [36.6 C] (06/21/2023 20:40) Pulse: 68 (06/21/2023 20:40) Respiration: 16 (06/21/2023 20:40) Blood Pressure: 146/95 (06/21/2023 20:40) Height: 74 in [188.0 cm] (03/26/2023 13:12) Weight: 225.8 lb [102.42 kg] (06/21/2023 15:12) Allergies: Patient has answered NKA Active Medications: F: Ineffective coping individual R/T-Alcohol use disorder/detox D: 67 year old male admitted 06/21/2023@1815 for etoh detox. Assess alcohol withdrawal Q2 hour using the CIWA-AR detox protocol for alcohol withdrawal (refer to the CIWA-AR notes for more details). 181: CIWA-AR score= (3) 1999: CIWA-AR score= (2) 2199: CIWA-AR score= Zero Cooperative with admission routine. Received scheduled HS medication at 2104. Has been resting in bed A: Monitor for safety with 15 minute safety checks. Assess for S/S of detox and medicate as needed, ensure remains hydrated and water at the bed side. Encourage, [place], actively Support vet in activities, psychological and psychosocial and physiological needs; avail vet of information and networking systems as appropriate R: NO voiced thoughts of harm to self/others. /brenda/ Ernie Pope RN STAFF NURSE Signed: 06/21/2023 22:58 ERNIE POPE [facility] Jun 21, 2023 10:40 PM MENTAL HEALTH DIAGNOSTIC STUDY NOTE: LOCAL TITLE: [facility] NURSING NOTE STANDARD TITLE: MENTAL HEALTH DIAGNOSTIC STUDY NOTE DATE OF NOTE: JUN 21, 2023@22:40 ENTRY DATE: JUN 21, 2023@22:56:58 AUTHOR: PAULETTE JAQUEZ: URGENCY: STATUS: COMPLETED CLINICAL INSTITUTE WITHDRAWAL ASSESSMENT (CIWA-AR) CIWA-AR Total Score: 0 Scores of less than 8 indicate mild withdrawal, 8-15 indicate moderate withdrawal (marked autonomic arousal) and >15 indicate severe withdrawal and are also predictive of the development of seizures and delirium. 1. Time (use 24 hour clock, midnight is 00:00): 22:40 2. Pulse or heart rate (taken for one minute): 67 3. Blood pressure: 143/77 4. NAUSEA AND VOMITING - Ask, Do you feel sick to your stomach? Have you vomited? Observation: No nausea and no vomiting 5. TREMOR - Arms extended and fingers spread apart. Observation: No tremor 6. PAROXYSMAL SWEATS - Observation: No sweat visible 7. ANXIETY - Ask, Do you feel nervous? Observation: No anxiety, at ease 8. AGITATION - Observation: Normal activity 9. [...] I? Oriented and can do serial additions /es/ PAULETTE JAQUEZ RN, [facility] Registered Nurse Signed: 06/21/2023 22:58 PAULETTE JAQUEZ [facility] Jun 21, 2023 08:40 PM MENTAL HEALTH DIAGNOSTIC STUDY NOTE: LOCAL TITLE: [facility] NURSING NOTE STANDARD TITLE: MENTAL HEALTH DIAGNOSTIC STUDY NOTE DATE OF NOTE: JUN 21, 2023@20:40 ENTRY DATE: JUN 21, 2023@22:08:33 AUTHOR: PAULETTE JAQUEZ EXP COSIGNER: URGENCY: STATUS: COMPLETED CLINICAL INSTITUTE WITHDRAWAL ASSESSMENT (CIWA-AR) CIWA-AR Total Score: 2 Scores of less than 8 indicate mild withdrawal, 8-15 indicate moderate withdrawal (marked autonomic arousal) and >15 indicate severe withdrawal and are also predictive of the development of seizures and delirium. 1. Time (use 24 hour clock, midnight is 00:00): 20:40 2. Pulse or heart rate (taken for one minute): 68 3. Blood pressure: 146/95 4. NAUSEA AND VOMITING - Ask,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 No /brenda/ YASMANY DECKER RN Registered Nurse Signed: 06/21/2023 20:39 [facility] Jun 21, 2023 06:57 PM NURSING NOTE: LOCAL TITLE: [facility] SKIN INSPECTION/ASSESSMENT STANDARD TITLE: NURSING NOTE DATE OF NOTE: JUN 21, 2023@18:57 ENTRY DATE: JUN 21, 2023@18:57:42 AUTHOR: YASMANY DECKER EXP COSIGNER: URGENCY: STATUS: COMPLETED INITIAL SKIN INSPECTION/ASSESSMENT SKIN INSPECTION: Skin Color: Color: Normal for ethnic group Skin Temperature Temp: Warm Skin Moisture Moisture: Dry Skin Turgor Turgor: Within normal limits INTERVENTIONS The pressure ulcer prevention protocol was not needed - patient is not at risk. SKIN INTEGRITY: Intact /brenda/ YASMANY DECKER RN Registered Nurse Signed: 06/21/2023 18:58 [facility]OYASMANY [facility] Jun 21, 2023 06:40 PM MENTAL HEALTH DIAGNOSTIC STUDY NOTE: LOCAL TITLE: [facility] NURSING NOTE STANDARD TITLE: MENTAL HEALTH DIAGNOSTIC STUDY NOTE DATE OF NOTE: JUN 21, 2023@18:40 ENTRY DATE: JUN 21, 2023@18:40:42 AUTHOR: PAULETTE JAQUEZ EXP COSIGNER: URGENCY: STATUS: COMPLETED [facility] WITHDRAWAL ASSESSMENT (CIWA-AR) CIWA-AR Total Score: 3 Scores of less than 8 indicate mild withdrawal, 8-15 indicate moderate withdrawal (marked autonomic arousal) and >15 indicate severe withdrawal and are also predictive of the development of seizures and delirium. 1. Time (use 24 hour clock, midnight is 00:00): 18:30 2. Pulse or heart rate (taken for one minute): 69 3. Blood pressure: 138/93 4. NAUSEA AND VOMITING - Ask, Do [...] I? Oriented and can do serial additions /es/ PAULETTE JAQUEZ RN, [facility] Registered Nurse Signed: 06/21/2023 18:41 PAULETTE JAQUEZ [place] [facility] [place] [facility] Jun 21, 2023 06:36 PM NURSING ADMINISTRATIVE NOTE: LOCAL TITLE: CONSENT TO SEARCH FOR HAZARDOUS ITEMS NOTE STANDARD TITLE: NURSING ADMINISTRATIVE NOTE DATE OF NOTE: JUN 21, 2023@18:36 ENTRY DATE: JUN 21, 2023@18:36:45 AUTHOR: ENRIQUE HUYNH EXP COSIGNER: URGENCY: STATUS: COMPLETED Consent to Search for admission [place] searched in search room prior to entrance to [facility]. All clothing removed, to include under garments, socks and T shirt. Visual inspection of 's body and physical search of clothing completed for hazardous items. changed into [facility] and all clothing was washed prior to re-issue to [place]. Arrival Date & Time: May Method: Ambulating Contraband Search Date & Time: May [place] asked the following questions during search: Do you have any weapons? No Do you have any drugs on your person prescriptions , non- prescriptions or illicit? No Do you have any items on you person that you plan to use to hurt yourself or others with such as: Razors, other metallic objects, hard plastic objects or any other item that could be considered as a sharp or hazardous item used to inflict harm? 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
--- OUTSIDE RECORDS SUMMARY | 2024-06-06 17:59 | XMS_ITS | Encounter Summary ---
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 Amount: Approximately 10mg pills 2 times per day Last use: 2009 What was your longest period of abstinence?: from 2009 to current date HEROIN: None FENTANYL: None OXYCODONE: Percocet SUBOXONE: Yes in the past, was able to wean off of it. METHADONE: None HISTORY OF OVERDOSES: Patient denied experiencing an overdose in his lifetime. NARCAN (DO OEND AND/OR NALOXONE USE NOTE APPROPRIATE): Patient reported that he currently has a Nasal Narcan Kit that he was prescribed by the [facility] in [place], [place] when he discharged from [facility] Problematic use: Check all that apply with respect to this substance: [ ] The substance is often taken in larger amounts or over a longer period than was intended. [ ] There is a persistent desire or unsuccessful efforts to cut down or control substance use. [ ] A great deal of time is spent in activities necessary to obtain the substance, use the substance, or recover from its effects. [ ] Craving, or a strong desire or urge to use the substance. [ ] Recurrent substance use resulting in a failure to fulfill major role obligations at work, school, or home. [ ] Continued substance use despite having persistent or recurrent social or interpersonal problems caused or exacerbated by the effects of the substance? [ ] Important social, occupational, or recreational activities are given up or reduced because of substance use. [ ] Recurrent substance use in situations in which it is physically hazardous. [ ] Substance use is continued despite knowledge of having a persistent or recurrent physical or psychological problem that is likely to have been caused or exacerbated by the substance. [ ] Tolerance, as defined by either of the following: a. A need for markedly increased amounts of the substance to achieve intoxication or desired effect. b. A markedly diminished effect with continued use of the same amount of the substance. [] Withdrawal, as manifested by either of the following: a. The characteristic withdrawal syndrome for the substance (refer to Criteria A and B of the criteria set for [substance] withdrawal). b. Substance (or a closely related substance) is taken to relieve or avoid withdrawal symptoms. Depending on how many boxes were checked above, indicate the severity level: [ ] Mild: Presence of 2-3 symptoms. [ ] Moderate: Presence of 4-5 symptoms. [ ] Severe: Presence of 6 or more symptoms. REGARDING MOTIVATION FOR TREATMENT, ESTIMATE CLIENT'S STAGE OF CHANGE WITH RESPECT TO THIS SUBSTANCE: [] Precontemplation [] Contemplation [] Preparation [] Action [X] Maintenance COCAINE (Powder Cocaine): Age of onset: Teenager Method of acquiring substance (i.e. illegal, prescription, etc.): Illegally Means of use (oral, inhalation, IV): Snorted Only Pattern of use (i.e. continuous, episodic, binge/heavy episode): Episodic Duration (how long have you been using for the most recent episode): 5 to 6 years Frequency: 1 time on the weekends. Amount: Approximately an unknown amount of Powder Cocaine per day of use Last use: 34 years ago What was your longest period of abstinence?: 34 years Problematic use: Check all that apply with respect to this substance: [ ] The substance is often taken in larger amounts or over a longer period than was intended. [ ] There is a persistent desire or unsuccessful efforts to cut down or control substance use. [ ] A great deal of time is spent in activities necessary to obtain the substance, use the substance, or recover from its effects. [ ] Craving, or a strong desire or urge to use the substance. [ ] Recurrent substance use resulting in a failure to fulfill major role obligations at work, school, or home. [ ] Continued substance use despite having persistent or recurrent social or interpersonal problems caused or exacerbated by the effects of the substance? [ ] Important social, occupational, or recreational activities are given up or reduced because of substance use. [ ] Recurrent substance use in situations in which it is physically hazardous. [ ] Substance use is continued despite knowledge of having a persistent or recurrent physical or psychological problem that is likely to have been caused or exacerbated by the substance. [ ] Tolerance, as defined by either of the following: a. A need for markedly increased amounts of the substance to achieve intoxication or desired effect. b. A markedly diminished effect with continued use of the same amount of the substance. [] Withdrawal, as manifested by either of the following: a. The characteristic withdrawal syndrome for the substance (refer to Criteria A and B of the criteria set for [substance] withdrawal). b. Substance (or a closely related substance) is taken to relieve or avoid withdrawal symptoms. Depending on how many boxes were checked above, indicate the severity level: [ ] Mild: Presence of 2-3 symptoms. [ ] Moderate: Presence of 4-5 symptoms. [ ] Severe: Presence of 6 or more symptoms. REGARDING MOTIVATION FOR TREATMENT, ESTIMATE CLIENT'S STAGE OF CHANGE WITH RESPECT TO THIS SUBSTANCE: [] Precontemplation [] Contemplation [] Preparation [] Action [] Maintenance AMPHETAMINES: Patient denied using/abusing Amphetamines in his lifetime. INHALANTS: (e.g., spray paint, sharpie, keyboard final cleaner, correction fluid) Street names: [place], [place], [place], and [place] Patient denied using Inhalants in his lifetime. OTHER SUBSTANCES: Have you ever used MDMA/Ecstasy, DXM/Coricidin, Steroids, diphenhydramine/Benadryl, Bath Salts, Spice, K-2, Other? Age of onset: (LSD) Teenager Method of acquiring substance (i.e. illegal, prescription, etc.): Illegally Means of use (oral, inhalation, IV): Orally Consumed Pattern of use (i.e. continuous, episodic, binge/heavy episode): Episodic Duration (how long have you been using for the most recent episode): Frequency: Occasionally used (Unsure) Amount: 1 Tab LSD per day of use Last use: What was your longest period of abstinence?: from Late 1970's to current date. Problematic use: Check all that apply with respect to this substance: [ ] The substance is often taken in larger amounts or over a longer period than was intended. [ ] There is a persistent desire or unsuccessful efforts to cut down or control substance use. [ ] A great deal of time is spent in activities necessary to obtain the substance, use the substance, or recover from its effects. [ ] Craving, or a strong desire or urge to use the substance. [ ] Recurrent substance use resulting in a failure to fulfill major role obligations at work, school, or home. [ ] Continued substance use despite having persistent or recurrent social or interpersonal problems caused or exacerbated by the effects of the substance? [ ] Important social, occupational, or recreational activities are given up or reduced because of substance use. [ ] Recurrent substance use in situations in which it is physically hazardous. [ ] Substance use is continued despite knowledge of having a persistent or recurrent physical or psychological problem that is likely to have been caused or exacerbated by the substance. [ ] Tolerance, as defined by either of the following: a. A need for markedly increased amounts of the substance to achieve intoxication or desired effect. b. A markedly diminished effect with continued use of the same amount of the substance. [] Withdrawal, as manifested by either of the following: a. The characteristic withdrawal syndrome for the substance (refer to Criteria A and B of the criteria set for [substance] withdrawal). b. Substance (or a closely related substance) is taken to relieve or avoid withdrawal symptoms. Depending on how many boxes were checked above, indicate the severity level: [ ] Mild: Presence of 2-3 symptoms. [ ] Moderate: Presence of 4-5 symptoms. [ ] Severe: Presence of 6 or more symptoms. REGARDING MOTIVATION FOR TREATMENT, ESTIMATE CLIENT'S STAGE OF CHANGE WITH RESPECT TO THIS SUBSTANCE: [] Precontemplation [] Contemplation [] Preparation [] Action [X] Maintenance SEDATIVES, HYPNOTICS, ANXIOLYTICS: Patient denied using/abusing Sedative/Hypnotic/Anxiolyti c/Benzodiazepines in his lifetime. TOBACCO: Age of onset: Teenager Method of acquiring substance (i.e. illegal, prescription, etc.): Bought at store Means of use (oral, inhalation, IV): Smoked Only Pattern of use (i.e. continuous, episodic, binge/heavy episode): Continuous Duration (how long have you been using for the most recent episode): From Teenager to March 1992. Frequency: Approximatley 7 days per week Amount: Approximately 1 pack of cigarettes per day of use Last use: 32 Years ago What was your longest period of abstinence?: 32 years Problematic use: Check all that apply with respect to this substance: [ ] The substance is often taken in larger amounts or over a longer period than was intended. [ ] There is a persistent desire or unsuccessful efforts to cut down or control substance use. [ ] A great deal of time is spent in activities necessary to obtain the substance, use the substance, or recover from its effects. [ ] Craving, or a strong desire or urge to use the substance. [ ] Recurrent substance use resulting in a failure to fulfill major role obligations at work, school, or home. [ ] Continued substance use despite having persistent or recurrent social or interpersonal problems caused or exacerbated by the effects of the substance? [ ] Important social, occupational, or recreational activities are given up or reduced because of substance use. [ ] Recurrent substance use in situations in which it is physically hazardous. [ ] Substance use is continued despite knowledge of having a persistent or recurrent physical or psychological problem that is likely to have been caused or exacerbated by the substance. [ ] Tolerance, as defined by either of the following: a. A need for markedly increased amounts of the substance to achieve intoxication or desired effect. b. A markedly diminished effect with continued use of the same amount of the substance. [] Withdrawal, as manifested by either of the following: a. The characteristic withdrawal syndrome for the substance (refer to Criteria A and B of the criteria set for [substance] withdrawal). b. Substance (or a closely related substance) is taken to relieve or avoid withdrawal symptoms. Depending on how many boxes were checked above, indicate the severity level: [ ] Mild: Presence of 2-3 symptoms. [ ] Moderate: Presence of 4-5 symptoms. [ ] Severe: Presence of 6 or more symptoms. REGARDING MOTIVATION FOR TREATMENT, ESTIMATE CLIENT'S STAGE OF CHANGE WITH RESPECT TO THIS SUBSTANCE: [] Precontemplation [] Contemplation [] Preparation [] Action [X] Maintenance WHICH WITHDRAWAL SYMPTOMS HAVE YOU HAD WHEN YOU TRIED TO STOP USING SUBSTANCES? [X] Shakes/tremors: [] Seizures: [] Hallucinations [X] Nausea: [] Headache: [X] Diarrhea: [] Muscle Aches: [] Leg cramps: [X] Depression: [X] Irritability: [] Mood Swings: [] DT's: [] Sleep Problems: [] Appetite Problems: [] Breathing problems: [] Itching/scratching: [X] Sweating: [] Other: CONSEQUENCES OF SUBSTANCE USE: Legal Problems/ DUI's, Relationship Problems with his / arguments, and worsened mental health GOALS: TO quit again and stay abstinent from alcohol use for the rest of his life. TRIGGERS: Bad Day, habit, stress, major life/physical health issues (multiple) in a restively short time frame. 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 SOCIAL SUPPORT (including family/friends, self-help, community, spiritual): NA, family & friends) , Son, daughter, friends at work. GAMBLING QUESTIONS Brief Biosocial Gambling Screen (BBGS) Questionnaire: 1. During the past 12 months, have you become restless irritable or anxious when trying to stop/cut down on gambling? No 2. During the past 12 months, have you tried to keep your family or friends from knowing how much you gambled? No 3. During the past 12 months did you have such financial trouble as a result of your gambling that you had to get help with living expenses from family, friends or welfare? No If yes to any of the above, administer the [place] Gambling Screen (SOGS) available in [facility] (does not need to be completed in session). SUMMARY/CASE CONCEPTUALIZATION: Patient is a 67 year old male. Patient is seeking FRANCISCO-C Treatment for history of relapse due to Alcohol Dependence. RECOMMENDATIONS Based on the multidimensional assessment above and consistent with the [facility] Clinical Practice Guidelines for the treatment of FRANCISCO 2020, we recommend... Continue taking (MAT) Campral for alcohol use disorders; Individual Therapy for CBT-FRANCISCO, Individual Therapy for CBT-D, CSG-FRANCISCO Groups on at [id number] hours, Relapse Prevention Groups. PLAN Based on shared decision making with , considering recommendations and Pennington's preferences and values, plan is: Continue taking (MAT) Campral for alcohol use disorders. Patient declined Groups and individual therapy at this time. Informed patient that he can contact the undersigned if he desires FRANCISCO-C Treatment in the future. Patient reported that he would do so. [x] Provider discussed the [facility]'s structure, services (including the availability of evidence-based psychosocial and pharmacological treatments and toxicology testing), expectations, scheduling, and confidentiality of records. Pennington verbalized understanding and consent to be treated in this [facility]. DIAGNOSES: Alcohol Use Disorder, Severe Review FRANCISCO C treatment agreement and document verbal and/or written consent. FOR VVC: Review Group telehealth agreement and document verbal consent. Verbal consent to treatment agreement. Verbally consent to [facility] agreement. /brenda/ DAGOBERTO GALE [facility] Electrician'S Helper Signed: 07/05/2023 16:15 DAGOBERTO GALE [place] [facility] [place] [facility] July 05, 2023 02:46 PM SUICIDE PREVENTION RISK ASSESSMENT SCREENING NOTE: LOCAL TITLE: SUICIDE RISK EVALUATION - COMPREHENSIVE STANDARD TITLE: SUICIDE PREVENTION RISK ASSESSMENT SCREENING NOT DATE OF NOTE: JULY 05, 2023@14:46 ENTRY DATE: JULY 05, 2023@14:47:30 AUTHOR: DAGOBERTO GALE COSIGNER: URGENCY: STATUS: COMPLETED Comprehensive Suicide Risk Evaluation This is an update to an existing suicide risk evaluation. The validity of the information contained within this evaluation is not in question. Suicidal Ideation The most recent thoughts of engaging in suicide-related behavior were within the past 30 days. See Suicide Risk Evaluation-Comprehensive Note on 06/21/2023 for additiona information. It is unknown or unclear if the Pennington had suicidal intent at the time of the most recent ideation. Comment: See Suicide Risk Evaluation-Comprehensive Note on 06/21/2023 for additiona information. The Pennington had a suicide plan at the time of the most recent ideation. Describe: See Suicide Risk Evaluation-Comprehensive Note on 06/21/2023 for additiona information. The most recent suicidal ideation was the most severe ideation within the last 30 days. The [place]ton does not have access to lethal means (firearms) The does not have access to other lethal means. Suicidal Behavior The has not made any suicide attempts since the last [facility] Comprehensive Suicide Risk Evaluation was completed. The [place] did not report any prior preparatory behaviors that have not been previously documented. Warning Signs The following warning signs are currently present for the Pen[place]ton: None noted Additional past warning signs include: See Suicide Risk Evaluation-Comprehensive Note on 06/21/2023 for additiona information. Risk Factors Recent psychosocial stressors Please Describe: See Suicide Risk Evaluation-Comprehensive Note on 06/21/2023 for additiona information. History of mental health hospitalization Please Describe: See Suicide Risk Evaluation-Comprehensive Note on 06/21/2023 for additiona information. Psychological conditions or symptoms Please Describe: See Suicide Risk Evaluation-Comprehensive Note on 06/21/2023 for additiona information. Protective Factors and Reasons for Living Access to and engagement with health care Comment: See Suicide Risk Evaluation-Comprehensive Note on 06/21/2023 for additiona information. Reports motivation for medical treatment Comment: See Suicide Risk Evaluation-Comprehensive Note on 06/21/2023 for additiona information. Access to and engagement with mental health care Comment: See Suicide Risk Evaluation-Comprehensive Note on 06/21/2023 for additiona information. Reports motivation for mental health treatment Comment: See Suicide Risk Evaluation-Comprehensive Note on 06/21/2023 for additiona information. Has meaningful family relationships Comment: See Suicide Risk Evaluation-Comprehensive Note on 06/21/2023 for additiona information. Has a significant other Comment: See Suicide Risk Evaluation-Comprehensive Note on 06/21/2023 for additiona information. Hope for the future Comment: See Suicide Risk Evaluation-Comprehensive Note on 06/21/2023 for additiona information. Clinical Impressions: The clinical impression of acute risk is Low ACUTE Risk. As evidenced by: Due to nolonger drinking alcohol, taking prescption medicaiton as presribed, and engaged with mental health care The clinical impression of chronic risk is Low CHRONIC Risk. As evidenced by: See Suicide Risk Evaluation-Comprehensive Note on 06/21/2023 for additiona information. Suicide Risk Mitigation Plan: - This treatment and care plan was developed in collaboration with the [place]. Risk Mitigation Plan: Strategies for Managing Risk in OUTPATIENT setting Suicide Furniture Finisher was not alerted for consideration of a Patient Record Flag Category I High Risk for Suicide. Provide Pen[place]ton with phone number for 's Crisis Line: Dial 988 (Press 1), Text to 711812, or Chat Educate on emergency services Educate [place] on smartphone [facility] applications and websites Re-evaluation: Due to the dynamic nature of some warning signs, risk and protective factors, suicide risk should be routinely re-evaluated. These risk management strategies were chosen to address Pennington's current presentation and feasible treatment options within the system of care. This plan should be re-evaluated over time. /es/ DAGOBERTO GALE [facility] [employer] Helper Signed: 07/05/2023 16:16 Receipt Acknowledged By: 08/02/2023 18:01 /brenda/ NURIA HANSEN [facility] Suicide Furniture Finisher DAGOBERTO GALE [place] [facility] [place] [facility] July 05, 2023 02:41 PM MENTAL HEALTH DIAG NOSTIC STUDY NOTE: LOCAL TITLE: MENTAL HEALTH DIAGNOSTIC STUDY STANDARD TITLE: MENTAL HEALTH DIAGNOSTIC STUDY NOTE DATE OF NOTE: JULY 05, 2023@14:41 ENTRY DATE: JULY 05, 2023@14:42:09 AUTHOR: DAGOBERTO GALE EXP COSIGNER: URGENCY: STATUS: COMPLETED Suicide Screen: C-SSRS Screening [place]-Suicide Severity Rating Scale (C-SSRS Screener) Specific method of suicide recently considered; this POSITIVE answer requires same-day completion of a Suicide Risk Evaluation-Comprehensive 1. Over the past month, have you [...] had some intention of acting on them? No 5. Over the past month, have you started to work out or worked out the details of how to kill yourself? No 6. If yes, at any time in [...] went to the roof but didn't jump)? No 8. If YES, was this within the past 3 months? Response not required due to responses to other questions. /brenda/ DAGOEBRTO GALE [facility] Electrician[employer] Helper Signed: 07/05/2023 16:16 Receipt Acknowledged By: 08/03/2023 12:36 /brenda/ NURIA HANSEN [facility] Suicide Furniture Finisher [facility]ALE [facility]
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
--- OUTSIDE RECORDS SUMMARY | 2024-06-06 18:00 | XMS_ITS | Encounter Summary ---
Author Name [facility] [place] Address [address] [place] [address] Care Team Providers Care Jewelry Salesperson Name Role Phone ARIANNE CHERY Primary Care [...] Name Patient's Relationship to Policy Rizvi [facility] ORGANESPERANZA [employer] AGENC Y Aug 29, 2017 [id number] Kathy ESTRADA [facility] ORGANIZ COMMO [employer] Mar 01, 2014 [id number] [phone] Kathy ESTRADA SPOUSE MEDICARE (WNR) MEDICARE (M) PART A Sep 29, 2020 PART A [id number] [phone] Guanakito ESTRADA PATIENT MEDICARE (WNR) MEDICARE (M) PART A Sep 29, 2020 PART A [id number] [facility] Guanakito ESTRADA PATIENT Selected Encounter This section includes the information on record at [place] for the Encounter. Date/Time Encounter Type Encounter Description Reason Provider Source Nov 25, 2023 07:30 AM THERAPEUTIC EXERCISES PHYSICAL THERAPY ICD-10-CM M54.2 Cervicalgia EUFEMIA ORELLANA [facility] Encounter Template Text not used by [place] Assessments - Encounter Diagnoses This section includes the primary and secondary diagnoses documented for the Encounter. Date/Time Primary/Secondary Diagnosis Diagnosis Name Provider Source Nov 25, 2023 03:58 PM PRIMARY Cervicalgia EUFEMIA ORELLANA [place] [facility] Plan of Treatment: Future Appointments (+ 6 months) and Future Tests (+/- 45 days) The Plan of Treatment section includes future care activities for the patient from all [place] treatmentfacilities. This section includes future appointments and [...] REHAB MEDICIN E [place] [place] [facility] Dec 09, 2023 08:15 AM AMBULATORY - REHAB MEDICIN E [place] [facility] Dec 15, 2023 01:00 PM AMBULATORY - REHAB MEDICIN E [place] [facility] Dec 24, 2023 03:00 PM AMBULATORY - PSYCHIATRY [place] [facility] [place] [facility] Dec 31, 2023 02:30 PM AMBULATORY - REHAB MEDICIN E [place] [place] [facility] Jan 17, 2024 08:30 AM AMBULATORY - MEDICINE [place] C [place] [facility] Jan 17, 2024 09:45 AM AMBULATORY - MEDICINE [place] C [place] [facility] Feb 17, 2024 03:30 PM AMBULATORY - PSYCHIATRY [place] [facility] [place] [facility] Mar 23, 2024 08:00 AM AMBULATORY - MEDICINE [place] C [place] [facility] Apr 04, 2024 09:30 AM AMBULATORY - REHAB MEDICIN E [place] [place] [facility] Apr 05, 2024 03:30 PM AMBULATORY - PSYCHIATRY [place] [facility] [place] [facility] May 03, 2024 10:00 AM [facility] May 18, 2024 08:30 AM AMBULATORY - NONE [facility] Advance Directives: All historical and current [...] 25, 2023 ADVANCE DIRECTIVE DISCUSSION AMAYA FRANZ [facility] Aug 06, 2017 ADVANCE DIRECTIVE ABDIRASHID ENGLNAD [employer] Encounter Notes: All associated encounter notes This section contains the clinical notes associated to the Encounter. Date/Time Encounter Note(s) Provider Source Nov 25, 2023 07:30 AM PHYSICAL THERAPY C ONSULT: LOCAL TITLE: PHYSICAL THERAPY CONSULT STANDARD TITLE: PHYSICAL THERAPY CONSULT DATE OF NOTE: NOV 25, 2023@07:30 ENTRY DATE: NOV 25, 2023@07:30:35 AUTHOR: EUFEMIA ORELLANA EXP COSIGNER: URGENCY: STATUS: COMPLETED Initial Evaluation date: 11/25/23 Progress Note Date: Treatment #: 0 Treatment time: 45' Diagnosis: Cervicalgia Provider: Rc PT Treatment Precautions: Aflutter Patient identified by full name and date of SUBJECTIVE: Pt reports he's having neck pain for the past 6 months. Just came on after waking up with stiff neck. R side went away and L side got worse. Hurts to get up from chair etc. Some R shoulder pain present Date of onset: ( x ) Gradual ( ) Rapid Since onset: ( x ) Worsening ( ) Improving ( ) Staying the same C/O: ( x ) Pain: ( ) ROM: ( no ) Strength: no ( x ) Sensation: denies Pain 0-10: 5/10, worst pain 7/10. Improves w/: ibuprofen Increases w/: turning, laying down at night Pt. goal: No pain in the neck at all prior to this. 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 Alcohol dependence 2. Atrial flutter 3. Long-term current use of anticoagulant 4. Admits alcohol use 5. Steatosis of liver 6. Hypertension 7. Attention deficit hyperactivity disorder, predominantly inattentive type 8. Impaired fasting glucose 9. Cataract, Unspecified 10. Degenerative joint disease 11. Major depressive disorder OBJECTIVE: Observation: +FHP Myotomes: See MMT Dermatomes: (N=Normal, I=Impaired) C5 Radial N N C6 Thumb N N C7 Middle N N C8 Pinkie N N T1 Ulnar N N ROM: AROM: (R) (L) PROM (R) (L) *Pain Cervical flex: full w/ mm tension Extension: limited 50% w/ some pain Lat flex: 25* 20* Rotation: 52 30 * Shoulder AROM WNL w/ some pain during end range R abduction OBJECTIVE: MMT / Myotomes (R) (L) *pain Shoulder flex: 5 5 Elevation C4 5 5 Abduction C5 5 5 Ext rot: 5 5 Int rot: 5 5 Elbow flex C6: 5 5 Extension C7: 5 5 [employer] strength: NT Cervical Special Tests Right Left Spurlings compression (-) (-) (Sn .50 Sp .90) Distraction (-) (-) (Sn .44 Sp .90) Sharps-Camryn (-) (-) (Sn .69 Sp .96) Alar ligament test (-) (-) Clinical prediction rule (-) (-) 3 positive signs = Sn .39 Sp .94 for radiculopathy Less 60 deg cervical rotation to involved side Positive ULTT A Positive distraction Positive Spurlings test Shoulder Special Tests Lana Mendenhall (-) (-) Neer (+) (-) Francis test NT PALPATION: TTP R capiti, B UT, B romboids ASSESSMENT: Pt presents w/ cervical pain ongoing x 6 months. GOALS: 1.) Pt will have 50 deg or greater of cervical rotation w/o pain 2.) Pt will drive car w/o cervical pain 3.) Pt will sleep through the night w/o pain 4.) Pt will be I w/ HEP for continued self management of cervical spine. PLAN OF CARE: 1-2x/wk x 4 wks Soft tissue work deep neck flexor strengthening stretching- pecs, postural as well as cervical NAGS and SNAGS modalities for pain postural stab pt ed HEP TODAYS TREATMENT: Discussed findings and POC Patient education was provided for all aspects of care during this clinical encounter. THERAPEUTIC EXERCISE: MINUTES:15' Access Code: [email or web address] URL: [email or web address] Date: 11/25/2023 Prepared by: Eufemia Orellana Exercises - Seated Gentle Upper Trapezius Stretch - 1 x daily - 7 x weekly - 3 sets - 30 hold - Seated Cervical Retraction - 1 x daily - 7 x weekly - 3 sets - 10 reps - Seated Cervical Flexion AROM - 1 x daily - 7 x weekly - 3 sets - 10 reps MANUAL THERAPY: MINUTES: GAIT TRAINING: MINUTES: NEUROMUSCULAR EDUCATION: MINUTES: SELF CARE/EDUCATION: MINUTES: /es/ Eufemia Orellana PT,DPT PHYSICAL THERAPIST Signed: 11/25/2023 15:58 EUFEMIA ORELLANA [place] [facility] [facility]
--- OUTSIDE RECORDS SUMMARY | 2024-06-06 18:00 | XMS_ITS | Encounter Summary ---
Author Name [facility] [facility] [place] [facility] [place] Address [address] [place] [address] Care Team Providers Care Live Hanger Name Role Phone ARIANNE CHERY Primary Care [...] Name Patient's Relationship to Policy [facility] [employer] [place] Aug 29, 2017 [id number] Kathy MURPHY [facility] ORGANIZ COMMO [facility] Mar 01, 2014 [id number] [phone] Kathy MURPHY SPOUSE MEDICARE (WNR) MEDICARE (M) PART A Sep 29, 2020 PART A [id number] [facility] [phone] Gu[place]ito MURPHY PATIENT MEDICARE (WNR) MEDICARE (M) PART A Sep 29, 2020 PART A [id number] [facility] Guanakito MURPHY PATIENT Selected Encounter This section includes the information [place] at [place] for the Encounter. Date/Time Encounter Type Encounter Description Reason Provider Source Jun 25, 2023 11:00 AM [facility] ICD-10-CM F10.230 Alcohol dependence with withdrawal, uncomplicated PATEL AGOSTO IHKathy Encounter Template Text not used by [place] Assessments - Encounter Diagnoses This section includes the primary and secondary diagnoses documented for the Encounter. Date/Time Primary/Secondary Diagnosis Diagnosis Name Provider Source Jun 25, 2023 03:23 PM PRIMARY Alcohol dependence with withdrawal, uncomplicated KALIE AGOSTO [facility] [place] [facility] Jun 25, 2023 03:23 PM SECONDARY Major depressive disorder, single episode, unspecified KALIE AGOSTO [facility] [place] [facility] Plan of Treatment: Future Appointments (+ 6 months) and Future Tests (+/- 45 days) The Plan of Treatment section includes future care activities for the patient from all [place] treatmentfacilities. This section includes future appointments and [...] AMBULATORY - PSYCHIATRY [facility] [place] [facility] July 07, 2023 09:15 AM AMBULATORY [place]ICINE [place] [facility] [place] [facility] July 12, 2023 01:00 PM AMBULATORY - PS[facility]IATRY [facility] [place] [facility] July 16, 2023 03:00 PM AMBULATORY - PS[facility]CHIATRY [facility] [place] [facility] July 23, 2023 03:30 PM AMBULATORY - PS[facility]CHIATRY [facility] [place] [facility] Aug 13, 2023 03:30 PM AMBULATORY - PS[facility]IATRY [facility] [place] [facility] Aug 16, 2023 11:00 AM AM[place]ULATORY [place]IC[place] [facility] [place] [facility] Aug 27, 2023 11:30 AM AM[place]ULATORY [place]IC[place] [facility] [place] [facility] Sep 14, 2023 09:30 AM AM[place]IC[place] [facility] [place] [facility] Sep 17, 2023 03:30 PM AMBULATORY - PSYCHIATRY [facility] [place] [facility] Oct 05, 2023 01:00 PM AMBULATORY [facility] MEDICINE [facility] [place] [facility] Oct 14, 2023 02:00 PM AMBULATORY - NONE [facility] [place] [facility] Nov 12, 2023 03:30 PM AMBULATORY - PSYCHIATRY [facility] [place] [facility] Nov 25, 2023 07:30 AM AMBULATORY - REHAB MEDICIN E [facility] [place] [facility] Nov 25, 2023 08:30 AM AMBULATORY - PSYCHIATRY [facility] [place] [facility] Nov 25, 2023 11:00 AM [facility] Dec 03, 2023 07:30 AM AMBULATORY - REHAB MEDICIN E [facility] [place] [facility] Dec 09, 2023 08:15 AM AMBULATORY - REHAB MEDICIN E [facility] [place] [facility] Dec 15, 2023 01:00 PM AMBULATORY - REHAB MEDICIN E [facility] [place] [facility] Dec 24, 2023 03:00 PM AMBULATORY - PSYCHIATRY [facility] [place] [facility] Active, Pending, and Scheduled Orders This section [...] Order BASIC METABOLIC PANEL (fasting) BLOOD (SST-SERUM) [facility] May 14, 2023 12:00 AM Laboratory - Chemi stry Order LIPID PANEL FASTING BLOOD (SST-SERUM) [facility] May 14, 2023 12:00 AM Laboratory - Chemi stry Order LIVER FUNCTION BLOOD (SST-SERUM) [facility] May 14, 2023 12:00 AM Laboratory - Chemi stry Order HEMOGLOBIN A1C PANEL BLOOD (LAV-BLOOD) [facility] May 14, 2023 12:00 AM Laboratory - Chemi stry Order CBC AND DIFF (AUTO) BLOOD (LAV-BLOOD) [facility] May 14, 2023 12:00 AM Laboratory - Chemi stry Order TSH BLOOD (SST-SERUM) [facility] Lab Results: +/- 30 days of [...] Range Comment Jun 24, 2023 06:38 AM [facility] FOLATE (WROX) Specimen Type: SERUM No comment entered. Ordering Provider: REAGAN MÁRQUEZ Report Released Date/Time: Jun 23, 2023 11:15 AM Reporting [facility] [address] [facility] [address] Performing Lab: [facility] [address] [facility] [address] FOLATE (WROX) 17.13 ng/mL >5.2 Jun 24, 2023 06:38 AM [facility] HEMOGLOBIN A1C PANEL Specimen Type: [...] Jun 23, 2023 11:15 AM Reporting Lab: [facility] [address] [facility] [address] Performing Lab: [facility] [address] HEMOGLOBIN A1C 5.3 4.0-5.6 Jun 24, 2023 06:38 AM [facility] TSH Specimen Type: SERUM No comment entered. Ordering Provider: REAGAN MÁRQUEZ Report Released Date/Time: Jun 23, 2023 11:15 AM Reporting Lab: [facility] [address] Performing Lab: [facility] [address] TSH 2.11 u[IU]/mL 0.35-5.00 Jun 24, 2023 06:38 AM [facility] VITAMIN B12 Specimen Type: SERUM No comment entered. Ordering Provider: REAGAN MÁRQUEZ Report Released Date/Time: Jun 23, 2023 11:15 AM Reporting Lab: [address] [address] Performing Lab: [address] [address] VITAMIN B12 647 pg/mL 200-900 Jun 24, 2023 06:38 AM [facility] LIPID PANEL FASTING Specimen Type: SERUM No comment entered. Ordering Provider: REAGAN MÁRQUEZ Report Released Date/Time: Jun 23, 2023 11:15 AM Reporting Lab: [address] [address] Performing Lab: [address] [address] CHOLESTEROL 181 mg/dL TRIGLYCERIDE 180 mg/dL H 0-150 LDL calculated 106 mg/dL 0-129 CHOL/HDL 4.6 HDL CHOLESTEROL 39 mg/dL L 40-60 Jun 22, 2023 06:30 AM [facility] LIVER FUNCTION Specimen Type: SERUM No comment entered. Ordering Provider: DONA KIM Report Released Date/Time: Jun 21, 2023 06:07 PM Reporting Lab: [address] [address] Performing Lab: [address] [address] PROTEIN,TOTAL 7.3 g/dL 6.0-8.3 ALBUMIN 4.1 g/dL 3.5-5.0 ALKALINE PHOSPHATASE 80 U/L 40-150 AST 23 U/L 5-34 ALT 39 U/L BILIRUBIN, TOTAL 0.9 mg/dL 0.2-1.2 Jun 21, 2023 03:49 PM [facility] COVID-19 MONITOR PANEL (CEPHEID) Specimen Type: NASOPHARYNX Comment: This test is authorized for emergency use only. False negative results may occur if virus is present at levels below the analytical limit of detection.Neg ative results do not preclude SARS-CoV-2 infection and should not be used as the sole basis for treatment or other patient management decisions.Cep heid FLUVID: HCPs: https://www. [place].gov/media/ 486365/downlo ad. Patients: https://www. [place].gov/media/ 577748/downlo ad Ordering Provider: DIEGO MEJIAS Report Released Date/Time: Jun 21, 2023 03:18 PM Reporting Lab: [address] [address] Performing Lab: [address] [address] COVID-19 JARED (CEPHEID) NEGATIVE Negative Jun 21, 2023 03:29 PM [facility] ETHANOL Specimen Type: PLASMA No comment entered. Ordering Provider: DIEGO MEJIAS Report Released Date/Time: Jun 21, 2023 03:18 PM Reporting Lab: [address] [address] Performing Lab: [address] [address] ETHANOL <10 mg/dL Jun 21, 2023 03:29 PM [facility] LIVER FUNCTION Specimen Type: SERUM No comment entered. Ordering Provider: DIEGO MEJIAS Report Released Date/Time: Jun 21, 2023 03:18 PM Reporting Lab: [address] [address] Performing Lab: [address] [address] PROTEIN,TOTAL 8.1 g/dL 6.0-8.3 ALBUMIN 4.7 g/dL 3.5-5.0 ALKALINE PHOSPHATASE 83 U/L 40-150 AST 31 U/L 5-34 ALT 47 U/L BILIRUBIN, TOTAL 0.9 mg/dL 0.2-1.2 Jun 21, 2023 03:29 PM [facility] BASIC METABOLIC PANEL (non-fasting) Specimen Type: SERUM No comment entered. Ordering Provider: DIEGO MEJIAS Report Released Date/Time: Jun 21, 2023 03:18 PM Reporting Lab: [facility] [address] [facility] [address] Performing Lab: [address] [address] UREA NITROGEN 20 mg/dL 7-25 GLUCOSE 100 mg/dL 65-100 SODIUM 139 mmol/L 135-145 POTASSIUM 4.2 mmol/L 3.5-5.0 CHLORIDE 101 mmol/L 100-110 CO2 26 meq/L 20-30 CREATININE, Serum 0.85 mg/dL 0.50-1.40 eGFR(CKD-EPI 2020) >90 mL/min >60 Jun 21, 2023 03:29 PM [facility] DRUGS OF ABUSE Specimen Type: URINE [...] Jun 21, 2023 03:18 PM Reporting Lab: [address] [address] Performing Lab: [address] [address] AMPHETAMINES SCREEN NONE-DETECTED None-Detec josefina, Cutoff = [...] 3-1.02 0 Jun 21, 2023 03:29 PM [facility] CBC AND DIFF (AUTO) Specimen Type: BLOOD No comment entered. Ordering Provider: DIEGO MEJIAS Report Released Date/Time: Jun 21, 2023 03:18 PM Reporting Lab: [address] [address] Performing Lab: [address] [address] WBC 8.46 10*3/uL 4.50-11.00 RBC 5.43 10*6/uL 4.23-5.66 HGB 16.3 g/dL 12.8-17 HCT 47.5 39.2-50.4 MCV 87.5 fL 82-99 MCHC 34.3 g/dL 30.8-35.1 PLT 323 10*3/uL 140-360 RDW-CV 12.8 12.0-16.0 [place], Abs 0.80 10*3/uL 0.30-1.10 MCH 30.0 pg 26.2-32.6 Neut % 63.0 43.7-75.8 Lymph % 25.2 14.0-42.3 [place] % 9.5 5.1-13.7 Eos % 1.1 0.4-6.8 [...] Source Jun 25, 2023 09:23 PM 2 [place] [facility] [place] [facility] Jun 25, 2023 08:42 PM 3 [facility] [place] [facility] Jun 25, 2023 07:30 PM 97.2 66 128/88 18 97 [facility] [place] [facility] Jun 25, 2023 12:01 PM 63 136/90 [facility] [place] [facility] Jun 25, 2023 08:40 AM 97.7 67 115/79 18 98 [place] [facility] [place] [facility] Advance Directives: All historical and current Section [...] DISCUSSION AMAYA FRANZ [place] [facility] [place] [facility] Aug 06, 2017 ADVANCE DIRECTIVE ABDIRASHID [facility] Encounter Notes: All associated encounter notes This section contains the clinical notes associated to the Encounter. Date/Time Encounter Note(s) Provider Source Jun 25, 2023 03:12 PM PSYCHIATRY GROUP [place] CARL NOTE: LOCAL TITLE: PSYCHOLOGY GROUP NOTE STANDARD TITLE: PSYCHIATRY GROUP COUNSELING NOTE DATE OF NOTE: JUN 25, 2023@15:12 ENTRY DATE: JUN 25, 2023@15:12:50 AUTHOR: KALIE AGOSTO COSIGNER: URGENCY: STATUS: COMPLETED Group Psychotherapy TITLE: Goals for the weekend GROUP TRAVELING ENGINEER: Kalie Agosto PsyD GROUP MEMBERS: 7 Veterans (plus two who left early) TIME: 50 minutes LEARNING FORMAT: Group Psychotherapy, including psychoeducation The group started with an ice breaker to build some familiarity. This morning group objective was to help Veterans identify the struggles they have with everyday living, and identify ways in which they might learn to adapt to such struggles while here. A list of activities and goals to work toward or choose while on [place] was handed out, and each item was described. Veterans were encouraged to pursue at least one of them and ask this sba underwriter for assistance in achieving them, if it would be helpful. The list included mindfulness practice, sleep hygiene practice, and Written Exposure Therapy and Nightmare Rehearsal Therapy, along with fifteen other suggestions. Risk/safety: Based on the current session there is no evidence of the [place] being in imminent danger to self or others. No substance use was reported nor interpreted. Group Goal: To identify goals for the weekend, and notice if barriers exist. Plan: will continue to attend groups daily for the [place]'s duration on the unit Participation: Mr. Murphy reported being in a good mood and denied having any hooks which are distracting him. He knows that he needs to get better at accepting the things he cannot change. He gave examples of things he had trouble accepting. Peers offered suggestions, and his goal is to practice mindfulness in whatever way possible. Diagnoses: Primary Alcohol dependence (SCT 34164055) - Alcohol dependence with withdrawal, uncomplicated (ICD-10-CM F10.230) Secondary Major depressive disorder (SCT [id number]) - Major depressive disorder, single episode, unspecified (ICD-10-CM F32.9) Procedures: Group Psychotherapy Related to: Service Connected Condition // KALIE AGOSTO PSY.D. STAFF PSYCHOLOGIST Signed: 06/25/2023 15:25 K[facility]IE A[facility]STO [facility]
--- OUTSIDE RECORDS SUMMARY | 2024-06-06 18:00 | XMS_ITS | Encounter Summary ---
Author Name [facility] [place] [facility] [place] Address [address] [place] [id number] Care Team Providers Care Slitter Helper Name Role Phone ARIANNE CHERY Primary Care [...] Name Patient's Relationship to Policy [facility] [employer] [employer] Aug 29, 2017 [id number] Kathy ESRTADA [facility] CE [facility]GANIZ [facility] Mar 01, 2014 [id number] [phone] Kathy ESTRADA SPOUSE MEDICARE (WNR) MEDICARE (M) PART A Sep 29, 2020 PART A [id number] [facility] [place] ESTRADA PATIENT MEDICARE (WNR) MEDICARE (M) PART A Sep 29, 2020 PART A [id number] [place] PATIENT Selected Encounter This section includes the information on record at [place] for the Encounter. Date/Time Encounter Type Encounter Description Reason Provider Source Jun 25, 2023 09:50 AM Outpatient Encounter CARDIOLOGY ICD-10-CM I48.92 Unspecified atrial flutter BONNIE OROZCO MD E Encounter Template Text not used by [place] Assessments - Encounter Diagnoses This section includes the primary and secondary diagnoses documented for the Encounter. Date/Time Primary/Secondary Diagnosis Diagnosis Name Provider Source Jun 25, 2023 09:55 AM PRIMARY Unspecified atrial flutter BONNIE OROZCO MD [facility] Plan of Treatment: Future Appointments (+ 6 months) and Future Tests (+/- 45 days) The Plan of Treatment section includes future care activities for the patient from all [place] treatmentfacilities. This section includes future appointments and [...] AMBULATORY - PSYCHIATRY [place] [facility] [place] [facility] July 07, 2023 09:15 AM AMBULATORY - MEDICINE [place] [facility] [place] [facility] July 12, 2023 01:00 PM AMBULATORY - PSYCHIATRY [facility] [place] [facility] July 16, 2023 03:00 PM AMBULATORY - PSYCHIATRY [facility] [place] [facility] July 23, 2023 03:30 PM AMBULATORY - PSYCHIATRY [facility] [place] [facility] Aug 13, 2023 03:30 PM AMBULATORY - PSYCHIATRY [facility] [place] [facility] Aug 16, 2023 11:00 AM AMBULATORY - MEDICINE [facility] [place] [facility] Aug 27, 2023 11:30 AM AMBULATORY - MEDICINE [facility] [place] [facility] Sep 14, 2023 09:30 AM AMBULATORY - MEDICINE [facility] [place] [facility] Sep 17, 2023 03:30 PM AMBULATORY - PSYCHIATRY [facility] [place] [facility] Oct 05, 2023 01:00 PM AMBULATORY - MEDICINE [facility] [place] [facility] Oct 14, 2023 02:00 PM AMBULATORY - NONE [facility] [place] [facility] Nov 12, 2023 03:30 PM AMBULATORY - PSYCHIATRY [facility] [place] [facility] Nov 25, 2023 07:30 AM AMBULATORY - REHAB MEDICIN E [facility] [place] [facility] Nov 25, 2023 08:30 AM AMBULATORY - PSYCHIATRY [facility] [place] [facility] Nov 25, 2023 11:00 AM AMBULATORY - MEDICINE [facility] Dec 03, 2023 07:30 AM AMBULATORY - REHAB MEDICIN E [facility] [place] [facility] Dec 09, 2023 08:15 AM AMBULATORY - REHAB MEDICIN E [facility] [place] [facility] Dec 15, 2023 01:00 PM AMBULATORY - REHAB MEDICIN E [facility] [place] [facility] Dec 24, 2023 03:00 PM [facility] [place] [facility] Active, Pending, and Scheduled [...] Order LIPID PANEL FASTING BLOOD (SST-SERUM) [facility] May 14, 2023 12:00 AM Laboratory - Chemi stry Order BASIC METABOLIC PANEL (fasting) BLOOD (SST-SERUM) [facility] May 14, 2023 12:00 AM Laboratory - Chemi stry Order LIVER FUNCTION BLOOD (SST-SERUM) [facility] May 14, 2023 12:00 AM Laboratory - Chemi stry Order CBC AND DIFF (AUTO) BLOOD (LAV-BLOOD) [facility] May 14, 2023 12:00 AM Laboratory - Chemi stry Order TSH BLOOD (SST-SERUM) [facility] May 14, 2023 12:00 AM Laboratory - Chemi stry Order HEMOGLOBIN A1C PANEL BLOOD (LAV-BLOOD) [facility] Lab Results: +/- 30 days of [...] Range Comment Jun 24, 2023 06:38 AM [facility] FOLATE (WROX) Specimen Type: SERUM No comment entered. Ordering Provider: REAGAN MÁRQUEZ Report Released Date/Time: Jun 23, 2023 11:15 AM Reporting Lab: [facility] [place] [facility] [address] [facility] [address] Performing Lab: [facility] [address] [facility] [address] FOLATE (WROX) 17.13 ng/mL >5.2 Jun 24, 2023 06:38 AM [facility] HEMOGLOBIN A1C PANEL Specimen Type: BLOOD [...] Jun 23, 2023 11:15 AM Reporting Lab: [facility] [address] Performing Lab: [facility] [address] HEMOGLOBIN A1C 5.3 4.0-5.6 Jun 24, 2023 06:38 AM [facility] TSH Specimen Type: SERUM No comment entered. Ordering Provider: REAGAN MÁRQUEZ Report Released Date/Time: Jun 23, 2023 11:15 AM Reporting Lab: [facility] [address] [address] Performing Lab: [facility] [address] [address] TSH 2.11 u[IU]/mL 0.35-5.00 Jun 24, 2023 06:38 AM [facility] VITAMIN B12 Specimen Type: SERUM No comment entered. Ordering Provider: REAGAN MÁRQUEZ Report Released Date/Time: Jun 23, 2023 11:15 AM Reporting Lab: [facility] [address] [facility] [address] Performing Lab: [address] [address] VITAMIN B12 647 pg/mL 200-900 Jun 24, 2023 06:38 AM [facility] LIPID PANEL FASTING Specimen Type: SERUM No comment entered. Ordering Provider: REAGAN MÁRQUEZ Report Released Date/Time: Jun 23, 2023 11:15 AM Reporting Lab: [address] [address] Performing Lab: [address] [address] CHOLESTEROL 181 mg/dL TRIGLYCERIDE 180 mg/dL H 0-150 LDL calculated 106 mg/dL 0-129 CHOL/HDL 4.6 HDL CHOLESTEROL 39 mg/dL L 40-60 Jun 22, 2023 06:30 AM [facility] LIVER FUNCTION Specimen Type: SERUM No comment entered. Ordering Provider: DONA KIM Report Released Date/Time: Jun 21, 2023 06:07 PM Reporting Lab: [address] [address] Performing Lab: [address] [address] PROTEIN,TOTAL 7.3 g/dL 6.0-8.3 ALBUMIN 4.1 g/dL 3.5-5.0 ALKALINE PHOSPHATASE 80 U/L 40-150 AST 23 U/L 5-34 ALT 39 U/L BILIRUBIN, TOTAL 0.9 mg/dL 0.2-1.2 Jun 21, 2023 03:49 PM [facility] COVID-19 MONITOR PANEL (CEPHEID) Specimen Type: NASOPHARYNX Comment: This test is authorized for emergency use only. False negative results may occur if virus is present at levels below the analytical limit of detection.Neg ative results do not preclude SARS-CoV-2 infection and should not be used as the sole basis for treatment or other patient management decisions.Cep heid FLUVID: HCPs: https://www. [employer].gov/media/ 167560/downlo ad. Patients: https://www. [employer].gov/media/ 797666/downlo ad Ordering Provider: DIEGO MEJIAS Report Released Date/Time: Jun 21, 2023 03:18 PM Reporting Lab: [address] [address] Performing Lab: [address] [address] COVID-19 JARED (CEPHEID) NEGATIVE Negative Jun 21, 2023 03:29 PM [facility] ETHANOL Specimen Type: PLASMA No comment entered. Ordering Provider: DIEGO MEJIAS Report Released Date/Time: Jun 21, 2023 03:18 PM Reporting Lab: [address] [address] Performing Lab: [address] [address] ETHANOL <10 mg/dL Jun 21, 2023 03:29 PM [facility] LIVER FUNCTION Specimen Type: SERUM No comment entered. Ordering Provider: DIEGO MEJIAS Report Released Date/Time: Jun 21, 2023 03:18 PM Reporting Lab: [address] [address] Performing Lab: [address] [address] PROTEIN,TOTAL 8.1 g/dL 6.0-8.3 ALBUMIN 4.7 g/dL 3.5-5.0 ALKALINE PHOSPHATASE 83 U/L 40-150 AST 31 U/L 5-34 ALT 47 U/L BILIRUBIN, TOTAL 0.9 mg/dL 0.2-1.2 Jun 21, 2023 03:29 PM [facility] BASIC METABOLIC PANEL (non-fasting) Specimen Type: SERUM No comment entered. Ordering Provider: DIEGO MEJIAS Report Released Date/Time: Jun 21, 2023 03:18 PM Reporting Lab: [address] [address] Performing Lab: [address] [address] UREA NITROGEN 20 mg/dL 7-25 GLUCOSE 100 mg/dL 65-100 SODIUM 139 mmol/L 135-145 POTASSIUM 4.2 mmol/L 3.5-5.0 CHLORIDE 101 mmol/L 100-110 CO2 26 meq/L 20-30 CREATININE, Serum 0.85 mg/dL 0.50-1.40 eGFR(CKD-EPI 2020) >90 mL/min >60 Jun 21, 2023 03:29 PM [facility] DRUGS OF ABUSE Specimen Type: URINE [...] 21, 2023 03:18 PM Reporting Lab: [address] [address] Performing Lab: [address] [address] AMPHETAMINES SCREEN NONE-DETECTED None-Detec josefina, Cutoff = [...] 3-1.02 0 Jun 21, 2023 03:29 PM [facility] CBC AND DIFF (AUTO) Specimen Type: BLOOD No comment entered. Ordering Provider: DIEGO MEJIAS Report Released Date/Time: Jun 21, 2023 03:18 PM Reporting Lab: [facility] [address] [facility] [address] Performing Lab: [facility] [address] [facility] [address] WBC 8.46 10*3/uL 4.50-11.00 RBC 5.43 10*6/uL 4.23-5.66 HGB 16.3 g/dL 12.8-17 HCT 47.5 39.2-50.4 MCV 87.5 fL 82-99 MCHC 34.3 g/dL 30.8-35.1 PLT 323 10*3/uL 140-360 RDW-CV 12.8 12.0-16.0 Campbell, Abs 0.80 10*3/uL 0.30-1.10 MCH 30.0 pg 26.2-32.6 Neut % 63.0 43.7-75.8 Lymph % 25.2 14.0-42.3 Campbell % 9.5 5.1-13.7 Eos % 1.1 0.4-6.8 [...] Source Jun 25, 2023 ADVANCE DIRECTIVE DISCUSSION POONAM FRANZJozef Haskins [facility] Aug 06, 2017 ADVANCE DIRECTIVE ABDIRASHID [place] [employer] Encounter Notes: All associated encounter notes This section contains the clinical notes associated to the Encounter. Date/Time Encounter Note(s) Provider Source Jun 25, 2023 09:50 AM CARDIOLOGY CONSULT : LOCAL TITLE: CONSULT /CARDIOLOGY E-CONSULT STANDARD TITLE: CARDIOLOGY CONSULT DATE OF NOTE: JUN 25, 2023@09:50 ENTRY DATE: JUN 25, 2023@09:50:55 AUTHOR: BONNIE OROZCO MD EXP COSIGNER: URGENCY: STATUS: COMPLETED Reason for cardiology e-consult: Patient with recent-onset AFF (April) now on Eliquis and Metoprolol. Had been on maintenenance Adderall for ADHD, currently noncompliant in context of fears of stimulant with heart disease. Please comment on ? acceptability of continuing customary stimulant therapy. ACTIVE PROBLEMS: Code Description ACTIVE MEDICATIONS: OUTPT MEDICATIONS:NONE INPT MEDICATIONS:NONE [facility] Remote Active Medications Active Medications from Remote Data APIXABAN 5MG TAB Sig: TAKE ONE TABLET BY MOUTH EVERY 12 HOURS FOR PREVENTION OF BLOOD CLOTS Quantity: 60 Days Supply: 30 Original # of Refills: 0 Rx Expiration: 07/04/23 Last filled 06/04/23 at [facility] (Active) MOISTURIZING LOTION Sig: APPLY LIBERAL AMOUNT TOPICALLY ONCE DAILY NEEDED FOR DRY SKIN Quantity: 480 Days Supply: 90 Original # of Refills: 3 Rx Expiration: 10/07/23 Last filled 03/27/23 at [facility] (Active) BUPROPION HCL 200MG 12HR TAB,SA Sig: TAKE ONE TABLET BY MOUTH ONCE DAILY FOR DEPRESSION Quantity: 60 Days Supply: 60 Original # of Refills: 3 Rx Expiration: 02/02/24 Last filled 05/30/23 at [facility] (Active) CICLOPIROX 8% SOLN,TOP Sig: APPLY SMALL AMOUNT TOPICALLY ONCE DAILY WIPE OFF WITH ALCOHOL EVERY 7 DAYS; MAX USE 12 MONTHS Quantity: 6.6 Days Supply: 30 Original # of Refills: 11 Rx Expiration: 10/15/23 Last filled 12/20/22 at [facility] (Active) LISINOPRIL 10MG TAB Sig: TAKE ONE TABLET BY MOUTH ONCE DAILY TO CONTROL BLOOD PRESSURE Quantity: 90 Days Supply: 90 Original # of Refills: 1 Rx Expiration: 05/14/24 Last filled 08/03/23 at [facility] (Active/Suspended) METOPROLOL SUCCINATE 50MG TAB,SA Sig: TAKE ONE TABLET BY MOUTH AT BEDTIME FOR HIGH BLOOD PRESSURE (NOTE DOSE) Quantity: 90 Days Supply: 90 Original # of Refills: 3 Rx Expiration: 05/27/24 Last filled 05/27/23 at [facility] (Active) AMLODIPINE BESYLATE 5MG TAB Sig: TAKE ONE TABLET BY MOUTH ONCE DAILY FOR BLOOD PRESSURE, DO NOT TAKE WITH GRAPEFRUIT JUICE Quantity: 90 Days Supply: 90 Original # of Refills: 3 Rx Expiration: 04/28/24 Last filled 05/12/23 at [facility] (Active) SUNSCREEN 30-50/PHYSICAL BLOCK/PABA-FREE COMBO FACIAL CREAM Sig: APPLY A LIBERAL AMOUNT TOPICALLY NEEDED TO PREVENT SUNBURN Quantity: 360 Days Supply: 90 Original # of Refills: 3 Rx Expiration: 10/07/23 Last filled 10/07/22 at [facility] (Active) SUNSCREEN 30-50/AVOBENZONE/PABA-FREE COMBO LOTION Sig: APPLY A LIBERAL AMOUNT TOPICALLY NEEDED TO PREVENT SUNBURN Quantity: 480 Days Supply: 90 Original # of Refills: 3 Rx Expiration: 10/07/23 Last filled 03/27/23 at [facility] (Active) ALLERGIES/ADR:No Allergy Assessment LABS: CBC TREND No data available EMA ESTRADA [phone] : 1955 [facility] - Lab Cum Selected (max 5 occurrences) No data available for: SODIUM POTASSIUM CHLORIDE CO2 UREA NITROGEN CREATININE GLUCOSE CALCIUM ____ CHOLESTEROL ____ HDL ____ LDL ____ TRIG ____ HbA1c No data available SGOT ____ SGPT ____ ALK PHOS ____ TOTAL BILI ____ DIRECT BILI 0 URIC ACID ____ No data available BLOOD GAS No data available Recommendation: Adderrall carries a risk of myocardial [...] pressure, and ECG at least annually thereafter. Please note, I have neither seen nor examined this patient. This assessment is based on review of medical records. Thank you for allowing me to participate in the care of this patient. /brenda/ BONNIE OROZCO MD CARDIOLOGY ATTENDING Signed: 06/25/2023 09:55 BONNIE OROZCO MD [facility]
--- OUTSIDE RECORDS SUMMARY | 2024-06-06 18:00 | XMS_ITS | Encounter Summary ---
Author Name [place] Address [address] [place] [id number] Care Team Providers Care Configuration Management Consultant Name Role Phone JOSSELIN CHERY Primary Care [...] Name Patient's Relationship to Policy Rizvi [facility] CE ORGANESPERANZA GI STATE AGENC Y Aug 29, 2017 [id number] [phone] Kathy ESTRADA [facility] ORGANIZ COMMO NWEAL [facility] Mar 01, 2014 [id number] [phone] Kathy ESTRADA SPOUSE MEDICARE (WNR) MEDICARE (M) PART A Sep 29, 2020 PART A [id number] [phone] Guanakito ESTRADA PATIENT MEDICARE (WNR) MEDICARE (M) PART A Sep 29, 2020 PART A [id number] [facility] [phone] Guanakito ESTRADA PATIENT Selected Encounter This section includes the information on record at [place] for the Encounter. Date/Time Encounter Type Encounter Description Reason Provider Source Jun 06, 2024 08:56 AM Outpatient Encounter EVENT (HISTORICAL) MERVIN NGUYEN MD E Encounter Template Text not used by [place] Plan of Treatment: Future Appointments (+ 6 months) and Future Tests (+/- 45 days) The Plan of Treatment section includes future care activities for the patient from all [place] [facility]. This section includes future appointments and future orders which are active, pending or scheduled. Future Appointments This section includes appointments that were scheduled to occur 6 months from the date of the Encounter, up to a maximum of 20 appointments. The data comes from all [facility]. Appointment Date/Time Appointment Type Appointme nt Facility Name Jun 08, 2024 03:30 PM AMBULATORY [place] [place] [facility] Jun 20, 2024 02:00 PM AMBULATORY - MEDICINE [place] [facility] Aug 28, 2024 11:30 AM AMBULATORY - [place]ICINE [place] [facility] Nov 28, 2024 04:00 PM AMBULATORY - MEDICINE [facility] Active, Pending, and Scheduled Orders This section includes a listing of several types of active, pending, and scheduled orders, including clinic medications orders, diagnostic test orders, procedure orders and consult orders; where the start date of the order is 45 days before the date of the Encounter or 45 days after the date of theEncounter. The data comes from all [facility]. Test Date/Time Test Type Test Details Facility Name May 03, 2024 12:00 AM Laboratory - Chemistry Order LIPID PANEL FASTING BLOOD (SST-SERUM) [facility] May 03, 2024 12:00 AM Laboratory - Chemistry Order HEPATITIS C ANTIBODY (HCV)-ARC BLOOD [facility] May 03, 2024 12:00 AM Laboratory - Chemistry Order HEPATITIS B SURFACE ANTIBODY (HBsAb)- BLOOD (SST-SERUM) [facility] May 03, 2024 12:00 AM Laboratory - Chemistry Order HEPATITIS B SURFACE ANTIGEN (HBsAg)- BLOOD (SST-SERUM) [facility] May 03, 2024 12:00 AM Laboratory - Chemistry Order CERULOPLASMIN BLOOD (SST-SERUM) [facility] May 03, 2024 12:00 AM Laboratory - Chemistry Order FERRITIN BLOOD (SST-SERUM) [facility] May 03, 2024 12:00 AM Laboratory - Chemistry Order IRON & TIBC PANEL BLOOD (SST-SERUM) [facility] May 03, 2024 12:00 AM Laboratory - Chemistry Order RODY SCREEN/TITER BLOOD (SST-GOLD) SERUM [facility] May 03, 2024 12:00 AM Laboratory - Chemistry Order ALPHA 1 ANTITRYPSIN BLOOD (SST-SERUM) [facility] May 03, 2024 12:00 AM Laboratory - Chemistry Order LIVER FUNCTION BLOOD (SST-SERUM) [facility] May 03, 2024 12:00 AM Laboratory - Chemistry Order CBC AND DIFF (AUTO) BLOOD (LAV-BLOOD) [facility] May 03, 2024 12:00 AM Laboratory - Chemistry Order ALBUMIN BLOOD (SST-SERUM) [facility] May 03, 2024 12:00 AM Laboratory - Chemistry Order BASIC METABOLIC PANEL (non-fasting) BLOOD (SST-SERUM) [facility] May 03, 2024 12:00 AM Laboratory - Chemistry Order HEPATITIS A ANTIBODY (IGG) BLOOD (SST-SERUM) [facility] May 03, 2024 10:31 AM Laboratory - Chemistry Order PT & INR (PROTIME) BLOOD (BLUE-PLASMA) [facility] Jun 01, 2024 12:00 AM Laboratory - Chemistry Order SURGICAL PATH ORDER SURG PATH SPEC. UNKNOWN SP [facility] Jun 06, 2024 11:39 AM Consult Order SURGERY/CWM OUTPT Cons Flight Surveyor's Choice [facility] Advance Directives: All historical and current Section Date Range: From patient's date of to the date document was created. This section includes ALL of a patient's completed or amended [place] Advance and Rescinded Directives. The entries below indicate that a directive exists for the patient, but an actual copy is not included with this document. The data comes from all [place] facilities. Date Advance Directives Provider Source Jun 25, 2023 ADVANCE DIRECTIVE DISCUSSION AMAYA FRANZ [facility] Aug 06, 2017 ADVANCE DIRECTIVE ABDIRASHID EN[place] [facility] Radiology Reports: +/- 30 days [...] the Encounter. The data comes from all [place] treatment facilities. Date/Time Radiology Report Provider Source May 18, 2024 08:30 AM ULTRASOUND ABD WITH LIVER ELASTOGRAPHY: EMA ESTRADA [id number] -[id number] M Exm Date: MAY 18, 2024@08:30 Req Phys: JOSSELIN CHERY Loc: SPR SICK CALL SITE MONITOR (Req'g Loc) Img Loc: ULTRASOUND Service: Unknown [place] [address] (Case [id number] COMPLETE) ULTRASOUND ABDOMEN LIMITED (US Detailed) CPT:97248 Reason for Study: fatty liver, ETOH (Case [id number] COMPLETE) ULTRASOUND ELASTOGRAPHY PARENCHYM(US Detailed) CPT:06944 Clinical History: Report Status: Verified Date Reported: MAY 18, 2024 Date Verified: MAY 18, 2024 Client Services Assistant E-Sig:/ES/MAVERICK SANCHEZ JR Report: Study: Abdominal ultrasound [...] is normal. No gallstones are identified. The cap and stud machine operator reports a negative sonographic Carranza sign is [...] Primary Interpreting Staff: MAVERICK SANCHEZ JR, Radiologist (Client Services Assistant) /MAVERICK DU JR [facility] Pathology Reports: +/- 30 days of [...] the Encounter. The data comes from all [place] treatment facilities. Date/Time Pathology Report Provider Source Jun 06, 2024 08:56 AM LR SURGICAL PATHOLOGY REPORT: LOCAL TITLE: LR SURGICAL PATHOLOGY REPORT STANDARD TITLE: PATHOLOGY DIAGNOSTIC STUDY REPORT DATE OF NOTE: JUN 06, 2024@08:56:18 ENTRY DATE: JUN 06, 2024@08:56:18 AUTHOR: MERVIN NGUYEN MD EXP COSIGNER: URGENCY: STATUS: COMPLETED $APHDR Reporting Lab: [facility] [CLIA# [id number]] [address] [place] [phone] - - - - - - - [...] - - - PATHOLOGY REPORT Accession No. [facility] 150 - - - - - - - - - - - - - - - - - - - - - - - - - - - - - - - - - - - - - - - - Gross description: The specimen is recieved from [facility], [facility] 150 [facility] 3750;;1;Guanakito ESTRADA Received in formalin labeled with the [...] cross sections in cassette 2. RAPHAEL Rivas ([facility]) 06/02/2024 Skin, left upper back: [...] 06, 2024 at 8.30 AM. CPT codes 45773, 68496 /brenda/ MERVIN NGUYEN MD Board Certified Dermatopathologist Signed Jun 06, 2024@08:56 Performing Laboratory: Surgical Pathology Report Performed By: [facility] [CLIA# [id number]] [address] [place] [address] $FTR - - - - - - - - - - - - - - - - - - - - - - - - - - - - - - - - - - - - - - - - (End of report) MERVIN NGUYEN MD, MD mm Date Jun 06, 2024 - - - - - - - - - - - - - - - - - - - - - - - - - - - - - - - - - - - - - - - - EMA ESTRADA STANDARD FORM 515 ID:[id number] SEX:M :1955 AGE: 68 LOC:[facility] DERMATOLOGY SITE MONITOR 1 PM PCP: Josselin Chery /brenda/ MERVIN NGUYEN MD Board Certified Dermatopathologist Signed: 06/06/2024 08:56 MERVIN NGUYEN MD [facility] Encounter Notes: All associated encounter notes This section contains the clinical notes associated to the Encounter. Date/Time Encounter Note(s) Provider Source Jun 06, 2024 08:56 AM PATHOLOGY DIAGNOSTIC STUDY REPORT: LOCAL TITLE: SURGICAL PATHOLOGY REPORT STANDARD TITLE: PATHOLOGY DIAGNOSTIC STUDY REPORT DATE OF NOTE: JUN 06, 2024@08:56:18 ENTRY DATE: JUN 06, 2024@08:56:18 AUTHOR: MERVIN NGUYEN MD EXP COSIGNER: URGENCY: STATUS: COMPLETED $APHDR Reporting Lab: [facility] [CLIA# [id number]] [address] [place] [phone] - - - - - - - [...] - - - PATHOLOGY REPORT [facility] - - - - - - - - - - - - - - - - - - - - - - - - - - - - - - - - - - - - - - - - Gross description: The specimen is recieved from [facility], [facility] 150 RSP 2367;;1;Guanakito ESTRADA Received in formalin labeled with the [...] cross sections in cassette 2. RAPHAEL Rivas ([facility]) 06/02/2024 Skin, left upper back: Malignant melanoma [...] 06, 2024 at 8.30 AM. CPT codes 57287, 29578 /es/ MERVIN NGUYEN MD Board Certified Dermatopathologist Signed Jun 06, 2024@08:56 Performing Laboratory: Surgical Pathology Report Performed By: [facility] [CLIA# [id number]] [address] [place] [address] $FTR - - - - - - [...] - - EMA ESTRADA STANDARD FORM 515 ID:[id number] SEX:M :1955 AGE: 68 LOC:[facility] DERMATOLOGY SITE MONITOR 1 PM PCP: Josselin Chery /brenda/ MERVIN NGUYEN MD Board Certified Dermatopathologist Signed: 06/06/2024 08:56 MERVIN NGUYEN MD [place] CN[place] [facility]
--- OUTSIDE RECORDS SUMMARY | 2024-06-06 18:00 | XMS_ITS | Encounter Summary ---
Author Name Department [place] Organization [place] Address [address] [place] [id number] Care Team Providers Care Training Professional Name Role Phone ARIANNE CHERY Primary Care [...] Rizvi's Name Patient's Relationship to Policy Rizvi [facility] CE ORGANESPERANZA GI STATE AGENC Y Aug 29, 2017 [id number] [phone] Kathy ESTRADA [facility] CE ORGANIZ COMMO NWEAL [facility] Mar 01, 2014 [id number] [phone] Kathy ESTRADA SPOUSE MEDICARE (WNR) MEDICARE (M) PART A Sep 29, 2020 PART A [id number] [facility] [phone] Guanakito ESTRADA PATIENT MEDICARE (WNR) MEDICARE (M) PART A Sep 29, 2020 PART A [id number] [facility] [phone] Guanakito ESTRADA PATIENT Selected Encounter This section includes the information on record at [place] for the Encounter. Date/Time Encounter Type Encounter Description Reason Provider Source Apr 05, 2024 03:30 PM OFFICE O/P EST MOD 30 MIN [facility]IC - IND ICD-10-CM F32.9 Major depressive disorder, single episode, unspecified ROSALINE BROOKE Kathy Encounter Template Text not used by [place] Assessments - Encounter Diagnoses This section includes the primary and secondary diagnoses documented for the Encounter. Date/Time Primary/Secondary Diagnosis Diagnosis Name Provider Source Apr 08, 2024 01:49 PM PRIMARY Major depressive disorder, single episode, unspecified [facility] Apr 08, 2024 01:49 PM SECONDARY Alcohol dependence with withdrawal, uncomplicated [facility] Apr 08, 2024 01:49 PM SECONDARY Attn-defct hyperactivity disorder, predom inattentive type GERMAIN BROOKE IN [facility] Apr 08, 2024 01:49 PM SECONDARY Primary insomnia [facility]KE [facility] Plan of Treatment: Future Appointments (+ 6 months) and Future Tests (+/- 45 days) The Plan of Treatment section includes future care activities for the patient from all [place] [facility]. This section includes future appointments and future orders which are active, pending or scheduled. Future Appointments This section includes appointments that were scheduled to occur 6 months from the date of the Encounter, up to a maximum of 20 appointments. The data comes from all [place] treatment facilities. Appointment Date/Time Appointment Type Appointme nt Facility Name May 03, 2024 10:00 AM [facility] May 18, 2024 08:30 AM AMBULATORY - NONE [place] [facility] [facility] Jun 01, 2024 01:00 PM AMBULATORY - MEDICINE [place] C N[place]L [place] [facility] Jun 08, 2024 03:30 PM AMBULATORY - PSYCHIATRY ND [facility]TR [place] [facility] Jun 20, 2024 02:00 PM AMBULATORY - MEDICINE [place] C [place] [facility] Aug 28, 2024 11:30 AM [facility]ULATORY - [facility]IC[facility] Active, Pending, and Scheduled Orders This section [...] May 03, 2024 12:00 AM Laboratory - Chemi stry Order LIPID PANEL FASTING BLOOD (SST-SERUM) [facility] May 03, 2024 12:00 AM Laboratory - Chemi stry Order HEPATITIS C ANTIBODY (HCV)-ARC BLOOD (MARBLED-TOP SERUM) [facility] May 03, 2024 12:00 AM Laboratory - Chemi stry Order HEPATITIS B SURFACE ANTIBODY (HBsAb)- BLOOD (SST-SERUM) [facility] May 03, 2024 12:00 AM Laboratory - Chemi stry Order HEPATITIS B SURFACE ANTIGEN (HBsAg)- BLOOD (SST-SERUM) [facility] May 03, 2024 12:00 AM Laboratory - Chemi stry Order CERULOPLASMIN BLOOD (SST-SERUM) [facility] May 03, 2024 12:00 AM Laboratory - Chemi stry Order FERRITIN BLOOD (SST-SERUM) [facility] May 03, 2024 12:00 AM Laboratory - Chemi stry Order IRON & TIBC PANEL BLOOD (SST-SERUM) [facility] May 03, 2024 12:00 AM Laboratory - Chemi stry Order RODY SCREEN/TITER BLOOD (SST-GOLD) SERUM [facility] May 03, 2024 12:00 AM Laboratory - Chemi stry Order ALPHA 1 ANTITRYPSIN BLOOD (SST-SERUM) [facility] May 03, 2024 12:00 AM Laboratory - Chemi stry Order LIVER FUNCTION BLOOD (SST-SERUM) [facility] May 03, 2024 12:00 AM Laboratory - Chemi stry Order CBC AND DIFF (AUTO) BLOOD (LAV-BLOOD) [facility] May 03, 2024 12:00 AM Laboratory - Chemi stry Order ALBUMIN BLOOD (SST-SERUM) [facility] May 03, 2024 12:00 AM Laboratory - Chemi stry Order BASIC METABOLIC PANEL (non-fasting) BLOOD (SST-SERUM) [facility] May 03, 2024 12:00 AM Laboratory - Chemi stry Order HEPATITIS A ANTIBODY (IGG) BLOOD (SST-SERUM) [facility] May 03, 2024 10:31 AM Laboratory - Chemi krystal Order PT & INR (PROTIME) BLOOD (BLUE-PLASMA) [facility] Lab Results: +/- 30 days of the [...] Range Comment Mar 09, 2024 07:40 AM [facility] VITAMIN B-1 (THIAMINE)-(QU) Specimen Type: PLASMA Comment: Vitamin supplementation within 24 hours prior to blood draw may affect the accuracy of the results. This test was developed and its analytical performance characteristics have been determined by [employer], [place]. It has not been cleared or approved by the U.S. Food and Drug Administration. This assay has been validated pursuant to the CLIA regulations and is used for clinical purposes. Test Performed by [facility], [employer], [address] [place] [address] Drake Mejia M.D., Ph.D., Director of Laboratories , CLIA [id number] TEST PERFORMED AT: , Ordering Provider: BOOGIE GARCIA Report Released Date/Time: Sep 14, 2023 10:21 AM Reporting Lab: [facility] [address] [facility] [address] Performing Lab: [facility] [address] [address] VITAMIN B-1 (THIAMINE)-( QU) 13 nmol/L 8-Mar 09, 2024 07:40 AM [facility] FOLATE (WROX) Specimen Type: SERUM No comment entered. Ordering Provider: BOOGIE GARCIA Report Released Date/Time: Sep 14, 2023 10:21 AM Reporting Lab: [facility] [address] [facility] [address] Performing Lab: [facility] [address] [facility] [address] FOLATE (WROX) 17.6 ng/mL >5.2 Mar 09, 2024 07:40 AM [facility] VITAMIN B12 Specimen Type: SERUM No comment entered. Ordering Provider: BOOGIE GARCIA Report Released Date/Time: Sep 14, 2023 10:21 AM Reporting Lab: [facility] [address] [facility] [address] Performing Lab: [facility] [address] [facility] [address] VITAMIN B12 493 pg/mL 200-900 Mar 09, 2024 07:40 AM [facility] LIVER FUNCTION Specimen Type: SERUM No comment entered. Ordering Provider: BOOGIE GARCIA Report Released Date/Time: Sep 14, 2023 10:21 AM Reporting Lab: [facility] [address] [facility] [address] Performing Lab: [facility] [address] [facility] [address] PROTEIN,TOTA L 8.1 g/dL 6.0-8.3 ALBUMIN 4.5 [...] 25, 2023 ADVANCE DIRECTIVE DISCUSSION AMAYA FRANZ [facility] Aug 06, 2017 ADVANCE DIRECTIVE ABDIRASHID [place] [employer] Encounter Notes: All associated encounter notes This section contains the clinical notes associated to the Encounter. Date/Time Encounter Note(s) Provider Source Apr 05, 2024 03:40 PM PRIMARY CARE NURSE PRACTITIONER OUTPATIENT NOTE: LOCAL TITLE: NURSE PRACTITIONER OUTPATIENT NOTE STANDARD TITLE: PRIMARY CARE NURSE PRACTITIONER OUTPATIENT NOTE DATE OF NOTE: APR 05, 2024@15:40 ENTRY DATE: APR 05, 2024@15:40:29 AUTHOR: LEXI BROOKEIGNER: URGENCY: STATUS: COMPLETED OUTPATIENT MENTAL HEALTH CLINIC: FOLLOW-UP HPI: EMA ESTRADA, a 68 y/o male previously diagnosed with Major depressive disorder, Attention deficit hyperactivity disorder and Alcohol Use Disorder presents for [facility] Follow-Up appointment. Last seen by This Provider on 02/17/24 Reports mood as I'm okay. I've been feeling better since they fixed that pump of mine referring to cardiac surgery Energy and motivation have improved and I've been doing more. I'm feeling better after work which he attributes to improvement in cardiac function Cravings hit me here and there but aren't too, too bad and reiterates benefit of ACAMPROSATE really takes it out of my head. Is aware that this medication is still on backorder from pharmacy My depression's good ADHD symptoms are apparent but do not cause significant distress of impairment Discussed ATOMOXETINE or ARMODAFINIL for ADHD and declined denied gait instability from decreased dose of GABAPENTIN; still helpful for sleep at 400 mg. Agrees that this medication could also be helping with cravings for alcohol. Denies falls Sleeps approximately 9 hours per night explicitly and convincingly denied SI, intent [...] firearms or medication stockpiles SOCIAL HISTORY: Per 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. MENTAL STATUS [...] conversational testing Mood: good Affect: mood congruent MEDICAL: Atrial fibrillation/flutter Hepatic steatosis/fibrosis Hypertension IFG DJD/neck pain Wet macular degeneration/sensory retinal detachment OS Hyperlipidemia MEDICAL HISTORY: Active Problem Alcohol dependence F10.230 06/23/2023 REAGAN MÁRQUEZ Atrial flutter I48.92 04/29/2023 JOSE,LAZARO Long-term current use of anticoagul 04/28/2023 KATYA FRANKS Admits alcohol use Z72.89 06/05/2022 PRETTY MORRIS Steatosis of liver K76.0 08/28/2021 JOSELAZARO Hypertension I10. 04/21/2019 MARYSE VARNER Attention deficit hyperactivity dis 06/21/2023 PRETTY MORRIS Impaired fasting glucose R73.01 09/20/2020 COLLIN PAGE Cataract, Unspecified 366.9 10/10/2014 JESUS RITCHIE Degenerative joint disease 715.90 10/03/2014 PRETTY MOONEY Major depressive disorder F32.9 06/21/2023 PRETTY MORRIS ALLERGIES: Data on this list may not be complete. Please check V. FACILITY ALLERGY/ADR -------- No Remote Allergy/ADR Data available for this patient [place] [facility] [place] [facility] No Known Allergies [...] ACTIVE 18 Total Medications LABS AND STUDIES: VIT. B12 (WROX): 493 FOLATE (WR): 17.6 PROTEIN,TOTAL: 8.1 ALBUMIN: 4.5 ALKALINE PHOSPHATASE: 99 SGOT: 29 SGPT: 37 BILIRUBIN,TOT.: 1.2 BILIRUBIN,DIR.: 0.4 VIT B1 (QU): 13 SAFETY ASSESSMENT: No acute safety concerns. Convincingly [...] to continue with current pharmacotherapy regimen. No acute safety concerns Diagnosis: Attention deficit hyperactivity disorder, predominantly inattentive type Major depressive disorder, recurrent, in partial remission Alcohol Use Disorder, severe, in early remission PLAN: 1) CONTINUE ACAMPROSATE 666 MG PO TID (CURRENTLY ON BACK ORDER) 2) CONTINUE BUPROPION SR, 200 MG PO DAILY 3) CONTINUE GABAPENTIN 400 MG PO QHS (UNTIL ACAMPROSATE IS BACK IN STOCK) Labs: none today Follow-Up: 06/08/24 Discussed risks and benefits of proposed medication treatments including FDA approved indications and off-label uses, as well as common and severe side effects. comprehended all information discussed, had opportunity to ask questions which were answered to their satisfaction, and voluntarily and without duress agreed to trial as documented. CONTACT AND CRISIS INFO: [place] informed that This Provider can be contacted at , EXT 1941 or via Secure Messaging. We have reviewed the Crisis Hotline (933, dial #1 for line), and the has [...] court of law and presented to a circuit judge), and DOD access for active-duty service members. [...] of active outpatient prescriptions dispensed from this [place] (local) and dispensed from another [facility] or [...] BROOKE Psychiatric Mental Health Nurse Practitioner Signed: 04/08/2024 13:48 LEXI BROOKE [place] [facility]
== END ==
LOC: HO.CARD 14:50
PROVIDERS: PCP Nurse Practitioner Gerontology; Visit Provider Internal Medicine
DX: I48.92 Unspecified atrial flutter (principal)
CPT/HCPCS: 93242

== ENCOUNTER → 2024-06-06 14:53 | Outpatient (BNV) | payer OTHER, SELFPAY | PROVIDERS: PCP Nurse Practitioner Gerontology; Visit Provider Internal Medicine | DX: I47.10 Supraventricular tachycardia, unspecified (principal) | CPT/HCPCS: 93244 ==

== ENCOUNTER 2024-06-15 14:03 | Outpatient (AMB) | payer OTHER, SELFPAY ==
--- NOTE | 2024-06-15 14:06 | A.OFFVIS_ITS ---
Vital Signs 06/15/24 14:08 Height 6 ft 2 in Weight 231 lb 0.711 oz BMI 29.7 BP 130/64 Blood Pressure Location Lt brachial Position Sitting Pulse 69 Pulse Source Pulse Oximeter Intake Visit Reasons: 3m follow up Twister Hand Required: No Accompanied by: Self / Same As Patient Allergies No Known Allergies Allergy (Verified 10/06/23 14:55) Medication List - Last Reconciled 06/15/24 by John Feng MD amlodipine 5 mg PO DAILY apixaban (Eliquis) 5 mg PO BID bupropion HCl SR (Wellbutrin SR) PO lisinopril 20 mg PO DAILY HPI Comments Details: Nathan returns for follow-up. Recently seen in consultation regarding atrial flutter. Few months back, he had some heartburn type sensation and at that time he went to [facility]. Then diagnosed with atrial flutter. He was put on beta-blockers and anticoagulation. Subsequently, seen EP and underwent flutter ablation. History of alcohol use regularly till a few months ago. Overall, he feels good. No cardiac symptoms. [facility] Medical History Steatosis of liver Major depressive disorder DJD (degenerative joint disease) Cataract Impaired fasting glucose ADHD Hypertension Family History (Reviewed 06/15/24 @ 14:09 by Kitty Bruner [facility]) Father No problems noted. Mother No problems noted. Social History (Reviewed 06/15/24 @ 14:09 by Kitty Bruner [facility]) Alcohol intake: current Comment: daily Patient Tobacco Use Status: Former Tobacco user Substance Use Type: Marijuana Review of Systems Const Denies chills, Denies fatigue, Denies fever(s), Denies frequent falls, Denies weakness, Denies weight gain and Denies weight loss ENT Denies dizziness Card Denies chest pain, Denies leg edema, Denies lightheadedness, Denies palpitations, Denies dyspnea and Denies dyspnea on exertion Resp Denies cough, Denies dyspnea and Denies dyspnea on exertion GI Denies hematochezia Musc Denies abnormal gait, Denies muscle weakness, Denies numbness, Denies radiating pain into limb and Denies tingling Neuro Denies abnormal gait, Denies dizziness, Denies frequent falls, Denies numbness, Denies tingling and Denies weakness Endo Denies fatigue and Denies palpitations Physical Exam Vital Signs: Last Vital Signs Pulse 69 06/15/24 14:08 BP 130/64 06/15/24 14:08 BMI result Body Mass Index 29.7 Const General: comfortable and no acute distress Orientation/consciousness: patient oriented x3 HEENT Other: Unremarkable Head: Yes normal to inspection Neck Neck: Yes normal visual inspection Chest Chest palpation & inspection: normal inspection of the chest Resp Auscultation: clear to auscultation bilaterally Cardio Palpation: normal PMI Heart sounds: S1 normal heart sound present, S2 normal heart sound present, no gallops, no murmurs and no rubs GI Palpation (GI): Soft to palpation Back/Spine/Pelvis Other: unremarkable Skin General skin exam: no rashes or lesions noted Neuro General: patient oriented x3 Extrem General: Yes normal to inspection Psych Mental Status: mental status grossly normal Assessment & Plan Assessment & Plan (1) Atrial flutter by electrocardiogram: Code(s): I48.92 - Unspecified atrial flutter Category: Medical Plan Essentially, atrial flutter, status post ablation and currently maintaining sinus rhythm. Off beta-blockers. He has already completed a Holter monitor and we will await the results. If no recurring atrial flutter or atrial fibrillation, then we will discuss with EP about stopping Eliquis. Testing- Echocardiogram with LVEF of 64%. No wall motion abnormalities. Moderate biatrial enlargement. Otherwise unremarkable. Myocardial perfusion imaging study shows fixed inferior defect thought to be from diaphragmatic attenuation artifact. Coding Level of Care Code Est Pt Level 3 (73749) Diagnoses Atrial flutter by electrocardiogram I48.92
[2024-06-15 14:08] VITALS: BP 130/64; PULSE 69; BMI 29.7
== END 2024-06-15 14:21 | disposition home or self-care (01) ==
LOC: HO.HCS 14:03
PROVIDERS: PCP Internal Medicine; Visit Provider Internal Medicine
DX: I48.92 Unspecified atrial flutter (principal)
CPT/HCPCS: 99213

== ENCOUNTER → 2024-06-15 14:03 | Outpatient (BNVA) | payer OTHER, SELFPAY | PROVIDERS: PCP Internal Medicine; Visit Provider Internal Medicine | DX: I48.92 Unspecified atrial flutter (principal) | CPT/HCPCS: 99212 ==

== ENCOUNTER 2024-12-21 13:55 | Outpatient (AMB) | payer OTHER, SELFPAY ==
--- NOTE | 2024-12-21 14:23 | A.OFFVIS_ITS ---
Vital Signs 12/21/24 14:24 Height 6 ft 2 in Weight 227 lb 1.218 oz BMI 29.2 BP 140/80 H Blood Pressure Location Lt brachial Position Sitting Pulse 60 Pulse Source Pulse Oximeter Intake Visit Reasons: 6m follow up [employer] Required: No Accompanied by: Self / Same As Patient Allergies No Known Allergies Allergy (Verified 10/06/23 14:55) Medication List - Last Reconciled 12/21/24 by John Feng MD amlodipine 5 mg PO DAILY bupropion HCl SR (Wellbutrin SR) 300 mg PO lisinopril 20 mg PO DAILY HPI Comments Details: Nathan returns for follow-up regarding atrial flutter. Last year, he had some heartburn type sensation and at that time he went to [facility]. Then diagnosed with atrial flutter. He was put on beta-blockers and anticoagulation. Subsequently, seen EP and underwent flutter ablation. History of alcohol use regularly till a few months ago. Currently, he is not on any beta-blockers or anticoagulation. Overall, feels well without any cardiac symptoms. [facility] Medical History (Updated 12/21/24 @ 15:05 by John Feng MD) Steatosis of liver Major depressive disorder DJD (degenerative joint disease) Cataract Impaired fasting glucose ADHD Hypertension Family History Father No problems noted. Mother No problems noted. Social History Alcohol intake: current Comment: daily Patient Tobacco Use Status: Former Tobacco user Substance Use Type: Marijuana Review of Systems Const Denies chills, Denies fatigue, Denies fever(s), Denies frequent falls, Denies weakness, Denies weight gain and Denies weight loss ENT Denies dizziness Card Denies chest pain, Denies leg edema, Denies lightheadedness, Denies palpitations, Denies dyspnea and Denies dyspnea on exertion Resp Denies cough, Denies dyspnea and Denies dyspnea on exertion GI Denies hematochezia Musc Denies abnormal gait, Denies muscle weakness, Denies numbness, Denies radiating pain into limb and Denies tingling Neuro Denies abnormal gait, Denies dizziness, Denies frequent falls, Denies numbness, Denies tingling and Denies weakness Endo Denies fatigue and Denies palpitations Physical Exam Vital Signs: Last Vital Signs Pulse 60 12/21/24 14:24 BP 140/80 H 12/21/24 14:24 BMI result Body Mass Index 29.2 Const General: comfortable and no acute distress Orientation/consciousness: patient oriented x3 HEENT Other: Unremarkable Head: Yes normal to inspection Neck Neck: Yes normal visual inspection Chest Chest palpation & inspection: normal inspection of the chest Resp Auscultation: clear to auscultation bilaterally Cardio Palpation: normal PMI Heart sounds: S1 normal heart sound present, S2 normal heart sound present, no gallops, no murmurs and no rubs GI Palpation (GI): Soft to palpation Back/Spine/Pelvis Other: unremarkable Skin General skin exam: no rashes or lesions noted Neuro General: patient oriented x3 Extrem General: Yes normal to inspection Psych Mental Status: mental status grossly normal Assessment & Plan Assessment & Plan (1) Atrial flutter by electrocardiogram: Code(s): I48.92 - Unspecified atrial flutter Category: Medical (2) Hypertension: Code(s): I10 - Essential (primary) hypertension Category: Medical Plan Atrial flutter, status post ablation and currently maintaining sinus rhythm. Off beta-blockers/Eliquis. With regard to slightly elevated blood pressure, advised him to monitor that. Testing- Echocardiogram with LVEF of 64%. No wall motion abnormalities. Moderate biatrial enlargement. Otherwise unremarkable. Myocardial perfusion imaging study shows fixed inferior defect thought to be from diaphragmatic attenuation artifact. Follow up in one year. In the interim, call with concerns. Discussion Notes During the visit, we discussed the patient's current status post-ablation for atrial flutter, noting the absence of recurrence. We also reviewed his blood pressure, which was slightly elevated at 140 mmHg but improved from previous levels. I advised that no changes to his current management plan are necessary at this time, and we will continue to monitor his condition. Patient was informed and verbally consented to the use of an ambient scribe for clinic note documentation during this visit. Patient Instructions: - Continue current medication regimen and lifestyle habits. - Monitor blood pressure regularly and report any significant changes. - [facility]. Coding Level of Care Code Est Pt Level 3 (08652) Diagnoses Atrial flutter by electrocardiogram I48.92 Hypertension I10
[2024-12-21 14:24] VITALS: BP 140/80; PULSE 60; BMI 29.2
== END 2024-12-21 14:45 | disposition home or self-care (01) ==
LOC: HO.HCS 13:55
PROVIDERS: PCP Internal Medicine; Visit Provider Internal Medicine
DX: I48.92 Unspecified atrial flutter (principal); I10 Essential (primary) hypertension
CPT/HCPCS: 99213

== ENCOUNTER → 2024-12-21 13:55 | Outpatient (BNVA) | payer OTHER, SELFPAY | PROVIDERS: PCP Internal Medicine; Visit Provider Internal Medicine | DX: I10 Essential (primary) hypertension (principal); I48.92 Unspecified atrial flutter | CPT/HCPCS: 99212 ==